=== PATIENT | male | born 1935 | race African-American/Black ===

== ENCOUNTER 2018-06-24 10:53 | Inpatient (IN) | payer OTHER ==
[2018-06-24] MEDS ORDERED: methylPREDNISolone NA SUCC 125 MG/2 ML VIAL ONE ×2 (11:19→15:04)
[2018-06-24 11:50] LABS: BASO % 0.7 % (0-2.0); HEMOGLOBIN 10.3 GM/dL (11.7-16.9); LYMPH % 1.5 % (8-40); MCH 26.1 pg (25.7-33.7); MCHC 32.1 g/dl (32.0-35.9); MEAN CELL VOLUME 81.4 fl (80-96); MEAN PLT VOLUME 7.2 fl (7.5-11.1); MONO % 6.5 % (3.8-10.2); NEUT % 91.3 % (42.8-82.8); PLATELET COUNT 460 K/MM3 (134-434); RBC 3.93 M/mm3 (4.00-5.60); RDW 18.5 % (11.9-15.9); VENOUS PC02 32.6 mmHg (38-52); VENOUS PH 7.48 (7.32-7.42); VENOUS PO2 56.8 mmHg (28-48); WHITE BLOOD COUNT 22.5 K/mm3 (4.0-10.0)
[2018-06-24] MEDS ORDERED: methylPREDNISolone NA SUCC 125 MG/2 ML VIAL IVPB ONE (11:51)
[2018-06-24] MEDS ORDERED: PIPERACILLIN/TAZOB 4.5 GM 4.5 GM in DEXTROSE 5%-WATER 100 ML IVPB ONE (11:53)
[2018-06-24] MEDS ORDERED: VANCOMYCIN 1,500 MG in DEXTROSE 5%-WATER - 250 ML IVPB ONE (11:53)
[2018-06-24 12:04] LABS: INR 2.08 (0.83-1.09); PROTHROMBIN TIME (PATIENT) 23.5 SEC (9.7-13.0)
[2018-06-24 12:07] LABS: ACTIVATED PTT 34.6 SECONDS (25.2-36.5)
--- NOTE | 2018-06-24 12:08 | PDOC ---
History of Present Illness - General Chief Complaint: Shortness of Breath Stated Complaint: DIFFICULTY BREATHING Time Seen by Provider: 06/24/18 11:09 History Source: Patient Exam Limitations: No Limitations - History of Present Illness Initial Comments: The patient is an 82M w/ a PMH of COPD, HF, a-fib (Eliquis), CKD, HLD, HTN, hypothyroidism who presents from his [facility] ([facility]) for worsening shortness of breath, fever (Tm 101.6), and hypoxia despite 3L NC. On arrival, the patient endorses worsening dyspnea and productive cough. He also reports chronic abdominal pain 2/2 hiatal hernia. Patient denies MCGRATH, acute vision change, chest pain, BLE swelling, or changes in sensation. 06/24/18 12:01 Past History - Past Medical History Allergies/Adverse Reactions: Allergies Allergy/AdvReac Type Severity Reaction Status Date / Time lisinopril Allergy Verified 06/24/18 11:19 Penicillins Allergy Verified 06/24/18 11:19 rosuvastatin [From Crestor] Allergy Verified 06/24/18 11:19 Home Medications: Ambulatory Orders Albuterol 2.5/Ipratropium 0.5 [Duoneb -] 1 neb IH QID 06/24/18 Albuterol Sulfate Inhaler - [Ventolin Hfa Inhaler -] 1 puff IH DAILY 06/24/18 Apixaban [Eliquis] 2.5 mg PO BID 06/24/18 Azithromycin [Zithromax -] 500 mg PO DAILY 06/24/18 Fluticasone Propionate [Flovent Diskus] 50 mcg IH BID 06/24/18 Fluticasone/Salmeterol [Advair 250-50 Diskus] 1 each IH BID 06/24/18 Furosemide 40 mg PO DAILY 06/24/18 Hydralazine HCl 100 mg PO TID 06/24/18 Levothyroxine [Synthroid -] 75 mcg PO DAILY 06/24/18 Multivit-Min/FA/Lycopen/Lutein [Centrum Silver Tablet] 1 each PO DAILY 06/24/18 Nifedipine ER [Procardia Xl -] 90 mg PO DAILY 06/24/18 Pantoprazole Sodium [Protonix] 40 mg PO DAILY 06/24/18 Potassium Chloride 10 meq PO DAILY 06/24/18 Simvastatin 10 mg PO DAILY 06/24/18 Cardiac Disorders: Yes (atrial fib) COPD: Yes GI Disorders: Yes (gerd) Hypercholesterolemia: Yes Kidney Stones: Yes (chronic kidney ds) Psychiatric Problems: Yes (anxiety, imsomnia) - Suicide/Smoking/Psychosocial Hx Smoking History: Never smoked Have you smoked in the past 12 months: No Information on smoking cessation initiated: No Hx Alcohol Use: No Drug/Substance Use Hx: No Substance Use Type: None Review of Systems - Review of Systems Able to Perform ROS?: Yes Comments:: GENERAL/CONSTITUTIONAL: No fever or chills. HEAD, EYES, EARS, NOSE AND THROAT: No change in vision. No ear pain or discharge. No sore throat CARDIOVASCULAR: No chest pain RESPIRATORY: +cough and wheeze GASTROINTESTINAL: No nausea, vomiting, diarrhea or constipation GENITOURINARY: No dysuria, frequency, or change in urination SKIN: No rash NEUROLOGIC: No headache, vertigo, loss of consciousness, or change in strength/ sensation ENDOCRINE: No increased thirst. No abnormal weight change HEMATOLOGIC/LYMPHATIC: +Eliquis 06/24/18 13:47 Is the patient limited Portuguese proficient: No *Physical Exam - Vital Signs Last Vital Signs Temp Pulse Resp BP Pulse Ox 100.6 F H 112 H 36 H 114/75 95 06/24/18 10:53 06/24/18 11:30 06/24/18 10:53 06/24/18 10:53 06/24/18 11:30 - Physical Exam Comments: GENERAL: Awake, alert, and fully oriented, in moderate distress HEAD: No signs of trauma, normocephalic, atraumatic EYES: PERRLA, EOMI, vision grossly intact ENT: Hearing grossly normal, nares patent. Moist mucosa NECK: Normal ROM, supple LUNGS: Moderate distress, tachypnea to 40s initially, pursed lip breathing; B/l mild-moderate diffuse crackles/rhonchi speaks full sentences HEART: Tachycardic and irregular rhythm, normal S1 and S2, no murmurs appreciated, peripheral pulses normal and equal bilaterally ABDOMEN: Soft, mild epigastric TTP without rebound or guarding EXTREMITIES : Normal inspection, Normal range of motion, no edema. No clubbing or cyanosis NEUROLOGICAL: Cranial nerves II through XII grossly intact. Normal speech, no focal sensorimotor deficits SKIN: Warm, Dry 06/24/18 12:06 ED Treatment Course - LABORATORY CBC & Chemistry Diagram: 06/24/18 11:30 06/24/18 11:30 - ADDITIONAL ORDERS Additional order review: Laboratory Results 06/24/18 11:30 VBG pH 7.48 H POC VBG pCO2 32.6 L POC VBG pO2 56.8 H Mixed VBG HCO3 23.8 06/24/18 11:30 RBC 3.93 L MCV 81.4 MCHC 32.1 RDW 18.5 H MPV 7.2 L Neutrophils % 91.3 H Lymphocytes % 1.5 L Monocytes % 6.5 Eosinophils % 0.0 Basophils % 0.7 - RADIOLOGY Radiology Studies Ordered: Category Date Time Status CHEST X-RAY PORTABLE* [RAD] Stat Radiology 06/24/18 11:27 Ordered - Medications Given in the ED: ED Medications Discontinued Medications Generic Name Dose Route Start Last Admin Trade Name Freq PRN Reason Stop Dose Admin Methylprednisolone Sodium Succinate 125 mg 06/24/18 11:51 06/24/18 11:28 Solu-Medrol - IVPB 06/24/18 11:52 125 mg ONCE ONE Administration Medical Decision Making - Critical Care Time Total Critical Care Time (minutes): 30 Critical Care Statement: The care of this patient involved high complexity decision making to prevent further life threatening deterioration of the patient 's condition and/or to evaluate & treat vital organ system(s) failure or risk of failure. - Medical Decision Making The patient is an 82M w/ a PMH of COPD, HF, a-fib (Eliquis), CKD, HLD, HTN, hypothyroidism who presents from his [facility] ([facility]) for worsening shortness of breath, fever (Tm 101.6), and hypoxia despite 3L NC. Patient febrile to 100.6, Tachycardic to 130s, Hypoxic to CMP, CBC, TS, Trop, Blood Cx, UA, UCx, Lactate, VBG Patient w/ PCN allergy, will give Vancomycin 1.5g IV once for loading dose and Levofloxacin 750mg IV once CXR, ECG Patient placed on BiPAP at 35% FiO2 Solumedrol 125mg IV once CXR significant for R pulm infiltrate vs effusion with pulm edema, cardiomegaly ECG with Tachycardia to 117, a-fib v flutter with possible 2:1 block; no axis deviation; no prior ECG for comparison; 06/24/18 12:01 Leukocytosis to 22 Slight Cr bump 1.8 (1.4 baseline) Initial Trop I neg LA 1.8 INR 2.08 BP improved to 110s/70s Tachycardia improving, 104 Tachypnea improving 20s Patient reports that he feels slightly 06/24/18 12:53 ICU consulted for admission initially for acute hypoxic respiratory failure Dispo: Admit to ICU with admission under Dr. Meza 06/24/18 13:39 Patient reports that he feels better now than on arrival. Less tachypnic, appears less distressed. 06/24/2018 13:46 UA w/o evidence of UTI 06/24/18 15:50 *DC/Admit/Observation/Transfer Diagnosis at time of Disposition: COPD exacerbation, Chronic diastolic CHF (congestive heart failure), Paroxysmal A-fib HTN (hypertension) Qualifiers: Hypertension type: essential hypertension Qualified Code(s): I10 - Essential ( primary) hypertension GERD (gastroesophageal reflux disease) Qualifiers: Esophagitis presence: esophagitis presence not specified Qualified Code(s): K21.9 - Gastro-esophageal reflux disease without esophagitis Hypothyroidism Qualifiers: Hypothyroidism type: unspecified Qualified Code(s): E03.9 - Hypothyroidism, unspecified CKD (chronic kidney disease) Qualifiers: Chronic kidney disease stage: unspecified stage Qualified Code(s): N18.9 - Chronic kidney disease, unspecified - Discharge Dispostion Condition at time of disposition: Guarded Decision to Admit order: Yes - Referrals - Patient Instructions - Post Discharge Activity
[2018-06-24] MEDS ORDERED: PIPERACILLIN/TAZOB 4.5 GM 4.5 GM/100 ML BAG IVPB ONE (12:13)
[2018-06-24 12:15] LABS: ALBUMIN 2.3 g/dl (3.4-5.0); ANION GAP 10 MMOL/L (8-16); BILIRUBIN,TOTAL 0.9 mg/dL (0.2-1.0); BLOOD UREA NITROGEN 21 mg/dL (7-18); CALCIUM 7.8 mg/dL (8.5-10.1); CHLORIDE 104 mmol/L (98-107); CO2 25 mmol/L (21-32); CREATININE 1.8 mg/dL (0.7-1.3); GLUCOSE,RANDOM 207 mg/dL (74-106); SGPT/ALT 17 U/L (12-78); SODIUM 139 mmol/L (136-145); TOT PROT 6.1 g/dl (6.4-8.2)
[2018-06-24 12:18] LABS: ALK PHOS 74 U/L (45-117)
[2018-06-24 12:19] LABS: POTASSIUM 4.2 mmol/L (3.5-5.1); SGOT/AST 29 U/L (15-37)
[2018-06-24] MEDS ORDERED: VANCOMYCIN 1,500 MG in DEXTROSE 5%-WATER - 500 ML IVPB ONE ×2 (12:21→12:30)
[2018-06-24] MEDS ORDERED: IMIPENEM/CILASTATIN SODIUM 500 MG in SODIUM CHLORIDE 100 ML IVPB ONE (12:27)
[2018-06-24 12:46] LABS: ANISOCYTOSIS 2+; MACROCYTOSIS 0; PLATELET ESTIMATE NORMAL
--- NOTE | 2018-06-24 13:11 | PDOC ---
Attending Attestation - Resident Resident Name: Lang Palacios - HPI HPI: 06/24/18 12:56 Pt presents to the ED complaining of shortness of breath that has been persistent for two days. Patient also complains of fever and productive cough. History of COPD with chronic home O2 use, and O2 saturations that are chronically in the low 90s on O2. Patient extremely tachypneic, speaking in 2- 3 word sentences and hypoxic despite 6 L O2 by nasal cannula. Febrile and tachycardic with a flutter on EKg. - Physicial Exam PE: 06/24/18 13:11 Agree with resident exam. PAtient is alert, in moderate respiratory distress. Heart: irregular, tachycardic, no murmur. Lungs: + diffuse wheezing and decreased air entry. + tachypnea. + pursed lip breathing. Abdomen: soft, non tender, non distended. Ext: no edema. - Critical Care Time Total Critical Care Time: 45 Critical Care Statement: The care of this patient involved high complexity decision making to prevent further life threatening deterioration of the patient 's condition and/or to evaluate & treat vital organ system(s) failure or risk of failure. - Medical Decision Making 06/24/18 13:13 Pt presents to the ED complaining of shortness of breath and fever. Hypoxic and tachypneic on arrival to the ED. Started on bipap for respiratory distress shortly after arrival, with improvement in his respiratory rate and heart rate, as well as subjectively feeling better. Differential includes ACS, CHF, COPD exacerbation, PNA. Broad spectrum antibiotics given--levaquin given instead of zosyn or immipenem since patient has a PCN allergy. CXR shows evidence of pulmonary congestion, but will hold of on nitrates or diuretics for now since blood pressure is borderline. Will admit to ICU. 06/24/18 13:16
[2018-06-24 13:58] LABS: URINE APPEARANCE SLCLOUDY; URINE BILIRUBIN NEGATIVE (<2.0 mg/dL); URINE COLOR AMBER; URINE GLUCOSE (UA) NEGATIVE (NEGATIVE); URINE KETONE NEGATIVE (NEGATIVE); URINE LEUK ESTERASE NEGATIVE (NEGATIVE); URINE NITRITE NEGATIVE (NEGATIVE); URINE PROTEIN NEGATIVE (NEGATIVE); URINE UROBILINOGEN NEGATIVE mg/dL (0.2-1.0)
--- NOTE | 2018-06-24 14:59 | HP ---
Admitting History and Physical - Primary Care Physician PCP: Jerson Meza - Admission Chief Complaint: sob History of Present Illness: Pt seen/ examined in er . Chart reviewed Discussed with Er Resident/ Attending Er records reviewed In summary The patient is an 82M w/ a PMH of COPD, HF, a-fib (Eliquis), CKD, HLD, HTN, hypothyroidism who presents from his care home ([facility]) for worsening shortness of breath, fever (Tm 101.6), and hypoxia despite 3L NC. Patient febrile to 100.6, Tachycardic to 130s, Hypoxic Patient w/ PCN allergy, l given Vancomycin 1.5g IV once for loading dose and Levofloxacin 750mg IV once Patient placed on BiPAP at 35% FiO2 Solumedrol 125mg IV once also given due to diffuse wheezing. CXR significant for R pulm infiltrate vs effusion with pulm edema, cardiomegaly. ECG with Tachycardia to 117, a-fib v flutter with possible 2:1 block; no axis deviation; no prior ECG for comparison; Pt improved More Comfortable. History Source: Patient, Medical Record Limitations to Obtaining History: Clinical Condition - Past Medical History Cardiovascular: Yes: AFIB, HTN Pulmonary: Yes: COPD Renal/: Yes: Renal Inusuff Endocrine: Yes: Hypothyroidism - Smoking History Smoking history: Never smoked Have you smoked in the past 12 months: No - Alcohol/Substance Use Hx Alcohol Use: No Home Medications - Allergies Allergies/Adverse Reactions: Allergies Allergy/AdvReac Type Severity Reaction Status Date / Time lisinopril Allergy Verified 06/24/18 11:19 Penicillins Allergy Verified 06/24/18 11:19 rosuvastatin [From Crestor] Allergy Verified 06/24/18 11:19 - Home Medications Home Medications: Ambulatory Orders Albuterol 2.5/Ipratropium 0.5 [Duoneb -] 1 neb IH QID 06/24/18 Albuterol Sulfate Inhaler - [Ventolin Hfa Inhaler -] 1 puff IH DAILY 06/24/18 Apixaban [Eliquis] 2.5 mg PO BID 06/24/18 Azithromycin [Zithromax -] 500 mg PO DAILY 06/24/18 Fluticasone Propionate [Flovent Diskus] 50 mcg IH BID 06/24/18 Fluticasone/Salmeterol [Advair 250-50 Diskus] 1 each IH BID 06/24/18 Furosemide 40 mg PO DAILY 06/24/18 Hydralazine HCl 100 mg PO TID 06/24/18 Levothyroxine [Synthroid -] 75 mcg PO DAILY 06/24/18 Multivit-Min/FA/Lycopen/Lutein [Centrum Silver Tablet] 1 each PO DAILY 06/24/18 Nifedipine ER [Procardia Xl -] 90 mg PO DAILY 06/24/18 Pantoprazole Sodium [Protonix] 40 mg PO DAILY 06/24/18 Potassium Chloride 10 meq PO DAILY 06/24/18 Simvastatin 10 mg PO DAILY 06/24/18 Review of Systems Unable to obtain ROS, reason: see [email or web address] Physical Examination Vital Signs: Vital Signs Temperature 100.6 F H 06/24/18 10:53 Pulse Rate 103 H 06/24/18 14:12 Respiratory Rate 36 H 06/24/18 14:12 Blood Pressure 119/73 06/24/18 14:12 O2 Sat by Pulse Oximetry (%) 96 06/24/18 14:14 Constitutional: Yes: Mild Distress, Other (awake/on bipap in er) Eyes: Yes: Conjunctiva Clear Neck: Yes: Supple, Other (no jvd) Cardiovascular: Yes: Pulse Irregular Respiratory: Yes: Wheezes (Bilateral diffuse wheezes) Gastrointestinal: Yes: Soft Edema: No Neurological: Yes: Alert Psychiatric: Yes: Alert Labs: CBC, BMP 06/24/18 11:30 06/24/18 11:30 Imaging - Results Chest X-ray: Report Reviewed EKG: Report Reviewed Problem List - Problems (1) Respiratory failure with hypoxia Code(s): J96.91 - RESPIRATORY FAILURE, UNSPECIFIED WITH HYPOXIA (2) Chronic diastolic CHF (congestive heart failure) Code(s): I50.32 - CHRONIC DIASTOLIC (CONGESTIVE) HEART FAILURE (3) HTN (hypertension) Code(s): I10 - ESSENTIAL (PRIMARY) HYPERTENSION Qualifiers: Hypertension type: essential hypertension Qualified Code(s): I10 - Essential (primary) hypertension (4) Hypothyroidism Code(s): E03.9 - HYPOTHYROIDISM, UNSPECIFIED Qualifiers: Hypothyroidism type: unspecified Qualified Code(s): E03.9 - Hypothyroidism , unspecified (5) Paroxysmal A-fib Code(s): I48.0 - PAROXYSMAL ATRIAL FIBRILLATION Assessment/Plan Admit to icu Bipap Abx Steroids nebulizer treatment Hold Bp Meds Continue other meds Critical team/ pulmonary to evaluate Consult i/d also. cc time 35 min in examining/ documenting and coorating care will follow.
[2018-06-24] MEDS: methylPREDNISolone NA SUCC 125 MG/2 ML VIAL IVPUSH SCH ×2 (15:12→21:10)
[2018-06-24] MEDS: ALBUTEROL SO4 2.5/IPRATROPIUM 0.5 INH SOL 3 ML VIAL.NEB. NEB SCH ×2 (17:30→20:34)
--- NOTE | 2018-06-24 20:18 | CONSULT ---
Consultation: REQUESTING PROVIDER: CONSULT REQUEST: ICU HISTORY OF PRESENT ILLNESS: The patient is a 82 year old male with a PMH of COPD, on home oxygen, 2 L, A.Fib , HTN, HLD, hiatal hernia, presented from [facility] for worsening SOB, wheezing , cough for the past several days and fatigue. The patient is bringing clear/ yellow phlegm. He denies fever, chills. When I saw the patient is ICU, he was AAO x 3, no acute distress, Oxygen Sat 95 on 3 L, BP 121/75, HR 91, RR 30, A.Flutter on monitor. He states that his breathing improved a lot since he came to the hospital. He denies chest pain, palpitations, abdominal pain, N/V. PSH: prostate Ca surg SH: quit smoking in 1954, no alcohol, no drugs. 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 FH: mother; CHF, smoker, father: smoker, COPD REVIEW OF SYSTEMS: CONSTITUTIONAL: Absent: fever, chills, diaphoresis, generalized weakness HEENT: Absent: rhinorrhea, nasal congestion, throat pain CARDIOVASCULAR: Absent: chest pain, syncope, palpitations, irregular heart rate RESPIRATORY: cough, shortness of breath Absent: dyspnea with exertion, orthopnea, wheezing GASTROINTESTINAL: Absent: abdominal pain, abdominal distension, nausea, vomiting, diarrhea, constipation GENITOURINARY: Absent: dysuria, frequency, urgency, hesitancy, MUSCULOSKELETAL: Absent: myalgia, arthralgia, joint swelling, back pain, neck pain SKIN: Absent: rash, itching, pallor ENDOCRINE: Absent: unexplained weight gain, unexplained weight loss NEUROLOGIC: Absent: headache, focal weakness or paresthesias, PSYCHIATRIC: Absent: anxiety, depression PHYSICAL EXAMINATION Vital Signs - 24 hr 06/24/18 06/24/18 06/24/18 10:53 11:30 13:00 Temperature 100.6 F H Pulse Rate 118 H 112 H Pulse Rate [ Right Radial] Respiratory 36 H Rate Blood Pressure 114/75 Blood Pressure [Right Arm] O2 Sat by Pulse 100 95 95 Oximetry (%) 06/24/18 06/24/18 06/24/18 14:12 14:14 15:28 Temperature 99.3 F Pulse Rate Pulse Rate [ 103 H Right Radial] Respiratory 36 H Rate Blood Pressure Blood Pressure 119/73 [Right Arm] O2 Sat by Pulse 96 96 Oximetry (%) 06/24/18 06/24/18 06/24/18 17:29 17:35 18:05 Temperature 97.8 F Pulse Rate 95 H 104 H Pulse Rate [ Right Radial] Respiratory 29 H 27 H Rate Blood Pressure 120/71 97/71 Blood Pressure [Right Arm] O2 Sat by Pulse 95 Oximetry (%) 06/24/18 06/24/18 18:49 20:00 Temperature 98.1 F Pulse Rate 91 H Pulse Rate [ Right Radial] Respiratory 30 H Rate Blood Pressure 121/75 Blood Pressure [Right Arm] O2 Sat by Pulse 94 L Oximetry (%) GENERAL: Awake, alert, and fully oriented, in no acute distress. HEAD: Normal with no signs of trauma. EYES: Pupils equal, round and reactive to light, extraocular movements intact, sclera anicteric, conjunctiva clear. EARS, NOSE, THROAT: Ears normal, nares patent, oropharynx clear without exudates , on NC. NECK: Supple without lymphadenopathy, JVD, or masses. LUNGS: Rhales and rhonchi r>l, occasional wheezing, no wheezes, and no crackles. No accessory muscle use. HEART: Regular rate and rhythm, normal S1 and S2 without murmur, rub or gallop. ABDOMEN: Soft, nontender, not distended, normoactive bowel sounds, no guarding, no rebound, no masses. MUSCULOSKELETAL: Normal range of motion at all joints. No bony deformities or tenderness. UPPER EXTREMITIES:No peripheral edema. LOWER EXTREMITIES: trace peripheral edema. NEUROLOGICAL: No facial asymmetry, no slurred speech, non focal, gait not observed. PSYCHIATRIC: Cooperative. Good eye contact. Appropriate mood and affect. SKIN: Warm, dry, normal turgor, no rashes. Laboratory Results - last 24 hr 06/24/18 06/24/18 06/24/18 11:30 11:30 11:30 WBC 22.5 H RBC 3.93 L Hgb 10.3 L Hct 32.0 L MCV 81.4 MCH 26.1 MCHC 32.1 RDW 18.5 H Plt Count 460 H MPV 7.2 L Absolute Neuts (auto) 20.5 H Neutrophils % 91.3 H Neutrophils % (Manual) 92.9 H Band Neutrophils % 0.0 Lymphocytes % 1.5 L Lymphocytes % (Manual) 1.0 L Monocytes % 6.5 Monocytes % (Manual) 6 Eosinophils % 0.0 Eosinophils % (Manual) 0.0 Basophils % 0.7 Basophils % (Manual) 0.0 Myelocytes % (Man) 0 Promyelocytes % (Man) 0 Blast Cells % (Manual) 0 Nucleated RBC % 0 Metamyelocytes 0 Hypochromia 0 Platelet Estimate Normal Polychromasia 0 Poikilocytosis 0 Anisocytosis 2+ Microcytosis 2+ Macrocytosis 0 PT with INR 23.50 H INR 2.08 H PTT (Actin FS) 34.6 VBG pH 7.48 H POC VBG pCO2 32.6 L POC VBG pO2 56.8 H Mixed VBG HCO3 23.8 Sodium Potassium Chloride Carbon Dioxide Anion Gap BUN Creatinine Creat Clearance w eGFR Random Glucose Lactic Acid Calcium Total Bilirubin AST ALT Alkaline Phosphatase Troponin I Total Protein Albumin Urine Color Urine Appearance Urine pH Ur Specific [place] Urine Protein Urine Glucose (UA) Urine Ketones Urine Blood Urine Nitrite Urine Bilirubin Urine Urobilinogen Ur Leukocyte Esterase Blood Type Antibody Screen 06/24/18 06/24/18 06/24/18 11:30 11:30 11:30 WBC RBC Hgb Hct MCV MCH MCHC RDW Plt Count MPV Absolute Neuts (auto) Neutrophils % Neutrophils % (Manual) Band Neutrophils % Lymphocytes % Lymphocytes % (Manual) Monocytes % Monocytes % (Manual) Eosinophils % Eosinophils % (Manual) Basophils % Basophils % (Manual) Myelocytes % (Man) Promyelocytes % (Man) Blast Cells % (Manual) Nucleated RBC % Metamyelocytes Hypochromia Platelet Estimate Polychromasia Poikilocytosis Anisocytosis Microcytosis Macrocytosis PT with INR INR PTT (Actin FS) VBG pH POC VBG pCO2 POC VBG pO2 Mixed VBG HCO3 Sodium 139 Potassium 4.2 Chloride 104 Carbon Dioxide 25 Anion Gap 10 BUN 21 H Creatinine 1.8 H Creat Clearance w eGFR 36.13 Random Glucose 207 H Lactic Acid 1.8 Calcium 7.8 L Total Bilirubin 0.9 AST 29 ALT 17 Alkaline Phosphatase 74 Troponin I 0.02 Total Protein 6.1 L Albumin 2.3 L Urine Color Urine Appearance Urine pH Ur Specific [place] Urine Protein Urine Glucose (UA) Urine Ketones Urine Blood Urine Nitrite Urine Bilirubin Urine Urobilinogen Ur Leukocyte Esterase Blood Type A POSITIVE Antibody Screen Negative 06/24/18 06/24/18 06/24/18 11:30 13:51 13:51 WBC RBC Hgb Hct MCV MCH MCHC RDW Plt Count MPV Absolute Neuts (auto) Neutrophils % Neutrophils % (Manual) Band Neutrophils % Lymphocytes % Lymphocytes % (Manual) Monocytes % Monocytes % (Manual) Eosinophils % Eosinophils % (Manual) Basophils % Basophils % (Manual) Myelocytes % (Man) Promyelocytes % (Man) Blast Cells % (Manual) Nucleated RBC % Metamyelocytes Hypochromia Platelet Estimate Polychromasia Poikilocytosis Anisocytosis Microcytosis Macrocytosis PT with INR INR PTT (Actin FS) VBG pH POC VBG pCO2 POC VBG pO2 Mixed VBG HCO3 Sodium Potassium Chloride Carbon Dioxide Anion Gap BUN Creatinine Creat Clearance w eGFR Random Glucose Lactic Acid Calcium Total Bilirubin AST ALT Alkaline Phosphatase Troponin I Cancelled Total Protein Albumin Urine Color [place] Urine Appearance Slcloudy Urine pH 5.0 Ur Specific [place] 1.014 Urine Protein Negative Urine Glucose (UA) Negative Urine Ketones Negative Urine Blood Negative Urine Nitrite Negative Urine Bilirubin Negative Urine Urobilinogen Negative Ur Leukocyte Esterase Negative Blood Type A POSITIVE Antibody Screen Active Medications Generic Name Dose Route Start Last Admin Trade Name Freq PRN Reason Stop Dose Admin Acetaminophen 650 mg 06/24/18 14:46 Tylenol - PO Q6H PRN PAIN LEVEL 1-5 Albuterol/Ipratropium 1 amp 06/24/18 16:00 06/24/18 17:30 Duoneb - NEB Not Given RQID [facility] Apixaban 2.5 mg 06/24/18 22:00 Eliquis - PO BID [facility] Atorvastatin Calcium 10 mg 06/25/18 22:00 Lipitor - PO HS [facility] Budesonide/Formoterol Fumarate 2 puff 06/24/18 22:00 Symbicort 80/4.5mcg - IH BID [facility] Chlorhexidine Gluconate 1 applic 06/24/18 22:00 Hibiclens For Decolonization - TP HS [facility] Levothyroxine Sodium 75 mcg 06/25/18 07:00 Synthroid - PO DAILY@0700 [facility] Methylprednisolone Sodium Succinate 60 mg 06/24/18 15:00 06/24/18 15:12 Solu-Medrol - IVPUSH 60 mg Q6H-IV [facility]AG[facility]EP Administration Multivitamins/Minerals/Vitamin C 1 tab 06/25/18 10:00 Tab-A-Vit - PO DAILY [facility] Mupirocin 1 applic 06/24/18 22:00 Bactroban Ointment (For Decolonization) - NS 06/29/18 21:59 BID [facility]AG[facility] Pantoprazole Sodium 40 mg 06/25/18 10:00 Protonix Iv IVPUSH DAILY [facility] ASSESSMENT/PLAN: The patient is a 82 year old male with a PMH of COPD, on home oxygen, 2 L, A.Fib , HTN, HLD, hiatal hernia, presented from [facility] for worsening SOB, wheezing , cough for the past several days and fatigue. He is admitted for COPD exacerbation, sepsis due to PNA. COPD exacerbation CHF sepsis due to pneumonia ANNALISA on CKD A.Fib HTN hyperlipidemia hiatal hernia hypothyroidism Plan: continue Solu-medrol 60 mg IV Q6h continue Levaquin IV continue Duoneb, Symbicort CXR significant for R pulmonary infiltrate vs effusion with pulm edema and cardiomegaly ECG: tachycardia to 117, a-fib v flutter, variable AC block sputum culture, blood cultures, Legionella ag no fluids, will resume home Lasix monitor Cr, avoid nephrotoxic substances, Cr not known baseline cont. Eliquis Oxygen Supplementation cont Synthroid DVT PPX on AC GI PPX Protonix Dispo: We will continue to follow the patient. Thank you for this consultative opportunity. Problem List - Problems (1) CKD (chronic kidney disease) Code(s): N18.9 - CHRONIC KIDNEY DISEASE, UNSPECIFIED Qualifiers: Chronic kidney disease stage: unspecified stage Qualified Code(s): N18.9 - Chronic kidney disease, unspecified (2) COPD exacerbation Code(s): J44.1 - CHRONIC OBSTRUCTIVE PULMONARY DISEASE W (ACUTE) EXACERBATION (3) Chronic diastolic CHF (congestive heart failure) Code(s): I50.32 - CHRONIC DIASTOLIC (CONGESTIVE) HEART FAILURE (4) GERD (gastroesophageal reflux disease) Code(s): K21.9 - GASTRO-ESOPHAGEAL REFLUX DISEASE WITHOUT ESOPHAGITIS Qualifiers: Esophagitis presence: esophagitis presence not specified Qualified Code(s) : K21.9 - Gastro-esophageal reflux disease without esophagitis (5) HTN (hypertension) Code(s): I10 - ESSENTIAL (PRIMARY) HYPERTENSION Qualifiers: Hypertension type: essential hypertension Qualified Code(s): I10 - Essential (primary) hypertension (6) Hypothyroidism Code(s): E03.9 - HYPOTHYROIDISM, UNSPECIFIED Qualifiers: Hypothyroidism type: unspecified Qualified Code(s): E03.9 - Hypothyroidism , unspecified (7) Paroxysmal A-fib Code(s): I48.0 - PAROXYSMAL ATRIAL FIBRILLATION (8) Pneumonia Code(s): J18.9 - PNEUMONIA, UNSPECIFIED ORGANISM (9) Respiratory failure with hypoxia Code(s): J96.91 - RESPIRATORY FAILURE, UNSPECIFIED WITH HYPOXIA Visit type - Emergency Visit Emergency Visit: Yes ED Registration Date: 06/24/18 Care time: The patient presented to the Emergency Department on the above date and was hospitalized for further evaluation of their emergent condition. - New Patient This patient is new to me today: Yes Date on this admission: 06/24/18 - Critical Care Critical Care patient: Yes Total Critical Care Time (in minutes): 40 Critical Care Statement: The care of this patient involved high complexity decision making to prevent further life threatening deterioration of the patient 's condition and/or to evaluate & treat vital organ system(s) failure or risk of failure.
[2018-06-24] MEDS: APIXABAN 2.5 MG TABLET PO SCH (21:10)
[2018-06-24] MEDS: CHLORHEXIDINE GLUCONATE 4% CLEANSER FOR DECOLONIZATION TP SCH (21:10)
[2018-06-24] MEDS: MUPIROCIN 2% TOPICAL OINTMENT FOR DECOLONIZATION NS SCH (21:10)
--- NOTE | 2018-06-24 21:54 | EKG ---
Test Reason : Blood Pressure : / mmHG Vent. Rate : 117 BPM Atrial Rate : 278 BPM P-R Int : 000 ms QRS Dur : 098 ms QT Int : 370 ms P-R-T Axes : 067 029 024 degrees QTc Int : 516 ms ATRIAL FLUTTER WITH VARIABLE A-V BLOCK WITH PREMATURE VENTRICULAR OR ABERRANTLY CONDUCTED COMPLEXES RSR' OR QR PATTERN IN V1 SUGGESTS RIGHT VENTRICULAR CONDUCTION DELAY CANNOT RULE OUT INFERIOR INFARCT , AGE UNDETERMINED ABNORMAL ECG NO PREVIOUS ECGS AVAILABLE Confirmed by JADE GOULD MD ([id number]) on 06/24/2018 9:54:16 PM Referred By: Confirmed By:JADE GOULD MD
[2018-06-24] MEDS ORDERED: PATIENT'S OWN MEDICATION (NON-FORMULARY) (Fluticasone Propionate [Flovent Diskus] 50 MCG) IH SCH (22:00)
[2018-06-24] MEDS: BUDESONIDE/FORMETEROL FUMARATE 80/4.5 mcg INHALER IH SCH (22:03)
[2018-06-25] MEDS ORDERED: PT OWN MED DRAWER 7, Y5N ONE ×8 (01:45→21:31)
[2018-06-25] MEDS: methylPREDNISolone NA SUCC 125 MG/2 ML VIAL IVPUSH SCH ×4 (02:05→21:10)
[2018-06-25] MEDS: LEVOTHYROXINE NA 75 MCG TABLET (FP) PO SCH (06:03)
[2018-06-25 06:09] LABS: BASO % 0.1 % (0-2.0); HEMATOCRIT 30.7 % (35.4-49); HEMOGLOBIN 10.2 GM/dL (11.7-16.9); LYMPH % 0.8 % (8-40); MCH 26.8 pg (25.7-33.7); MCHC 33.4 g/dl (32.0-35.9); MEAN CELL VOLUME 80.3 fl (80-96); MONO % 3.3 % (3.8-10.2); NEUT % 95.8 % (42.8-82.8); PLATELET COUNT 474 K/MM3 (134-434); RBC 3.82 M/mm3 (4.00-5.60); RDW 18.2 % (11.9-15.9); WHITE BLOOD COUNT 20.5 K/mm3 (4.0-10.0)
[2018-06-25 06:28] LABS: ALBUMIN 2.2 g/dl (3.4-5.0); ANION GAP 11 MMOL/L (8-16); BILIRUBIN,TOTAL 0.4 mg/dL (0.2-1.0); BLOOD UREA NITROGEN 27 mg/dL (7-18); CHLORIDE 105 mmol/L (98-107); CO2 25 mmol/L (21-32); CREATININE 1.6 mg/dL (0.7-1.3); GLUCOSE,RANDOM 143 mg/dL (74-106); POTASSIUM 3.8 mmol/L (3.5-5.1); SGOT/AST 11 U/L (15-37); SGPT/ALT 17 U/L (12-78); SODIUM 141 mmol/L (136-145); TOT PROT 6.1 g/dl (6.4-8.2)
[2018-06-25 06:29] LABS: ALK PHOS 73 U/L (45-117)
[2018-06-25] MEDS: ALBUTEROL SO4 2.5/IPRATROPIUM 0.5 INH SOL 3 ML VIAL.NEB. NEB SCH ×4 (07:30→20:38)
--- NOTE | 2018-06-25 08:52 | PN ---
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 hospitalized in [place] in November with pneumonia and influenza, recently hospitalized in mid May? with pneumonia in [facility] as well refused bipap resp failure with hypoxia RLL pneumonia copd exacerbation Penicillin allergy ckd afib prolonged Qtc continue vancomycin add cefepime f/u cultures f/u urinary antigens Problem List - Problems (1) Respiratory failure with hypoxia Code(s): J96.91 - RESPIRATORY FAILURE, UNSPECIFIED WITH HYPOXIA (2) Pneumonia Code(s): J18.9 - PNEUMONIA, UNSPECIFIED ORGANISM (3) COPD exacerbation Code(s): J44.1 - CHRONIC OBSTRUCTIVE PULMONARY DISEASE W (ACUTE) EXACERBATION (4) CKD (chronic kidney disease) Code(s): N18.9 - CHRONIC KIDNEY DISEASE, UNSPECIFIED Qualifiers: Chronic kidney disease stage: unspecified stage Qualified Code(s): N18.9 - Chronic kidney disease, unspecified (5) Penicillin allergy Code(s): Z88.0 - ALLERGY STATUS TO PENICILLIN
[2018-06-25] MEDS: PANTOPRAZOLE SODIUM 40 MG VIAL IVPUSH SCH (09:41)
[2018-06-25] MEDS: APIXABAN 2.5 MG TABLET PO SCH ×2 (09:41→21:10)
[2018-06-25] MEDS: MULTIVITAMINS (DAILY MVI) TABLET (FP) PO SCH (09:41)
[2018-06-25] MEDS: BUDESONIDE/FORMETEROL FUMARATE 80/4.5 mcg INHALER IH SCH ×2 (09:41→21:26)
[2018-06-25 10:47] LABS: ANISOCYTOSIS 1+; MACROCYTOSIS 1+; PLATELET ESTIMATE NORMAL
--- NOTE | 2018-06-25 11:43 | PN ---
Progress Note (short form) - Note Progress Note: pt seen/ examined in icu Alert/ awake Tachypnic/ tachycardic Hypoxic Refuses BiPap afebrile I/d/ critical consults noted/ appreciated Vital Signs Temp 98.1 F 06/25/18 10:00 Pulse 103 H 06/25/18 10:00 Resp 40 H 06/25/18 10:00 BP 125/70 06/25/18 10:00 Pulse Ox 94 L 06/25/18 08:00 Intake & Output 06/24/18 06/24/18 06/25/18 11:59 23:59 11:59 Intake Total 990 120 Output Total 300 Balance 690 120 Weight 182 lb 8 oz 173 lb 9 oz 179 lb 6.4 oz Intake: IVPB 750 Oral 240 120 Output: Urine 300 Void 300 Other: Voiding Method Urinal Bedpan # Unmeasured Voids Void 1 1 Bowel Movement No Height 6 ft 6 ft Body Mass Index (BMI) 24.7 23.5 Weight Measurement Method Built in Bedscale Built in Bedscale Active Medications Acetaminophen (Tylenol -) 650 mg PO Q6H PRN PRN Reason: PAIN LEVEL 1-5 Albuterol/Ipratropium (Duoneb -) 1 amp NEB RQID [facility] Last Admin: 06/25/18 11:13 Dose: 1 amp Apixaban (Eliquis -) 2.5 mg PO BID [facility] Last Admin: 06/25/18 09:41 Dose: 2.5 mg Atorvastatin Calcium (Lipitor -) 10 mg PO [facility] Budesonide/Formoterol Fumarate (Symbicort 80/4.5mcg -) 2 puff IH BID [facility] Last Admin: 06/25/18 09:41 Dose: 2 puff Chlorhexidine Gluconate (Hibiclens For Decolonization -) 1 applic TP [facility] Last Admin: 06/24/18 21:10 Dose: 1 applic Vancomycin HCl 1,250 mg/ (Dextrose) 250 mls @ 250 mls/2 hr IVPB Q24H [facility]; Protocol Cefepime HCl 2 gm/ Dextrose 100 mls @ 100 mls/hr IVPB BID [facility]; Protocol Levothyroxine Sodium (Synthroid -) 75 mcg PO DAILY@0700 [facility] Last Admin: 06/25/18 06:03 Dose: 75 mcg Methylprednisolone Sodium Succinate (Solu-Medrol -) 60 mg IVPUSH Q6H-IV [facility] Last Admin: 06/25/18 09:40 Dose: 60 mg Multivitamins/Minerals/Vitamin C (Tab-A-Vit -) 1 tab PO DAILY [facility] Last Admin: 06/25/18 09:41 Dose: 1 tab Mupirocin (Bactroban Ointment (For Decolonization) -) 1 applic NS BID [facility] Stop: 06/29/18 21:59 Last Admin: 06/24/18 21:10 Dose: 1 applic Pantoprazole Sodium (Protonix Iv) 40 mg IVPUSH DAILY [facility] Last Admin: 06/25/18 09:41 Dose: 40 mg CBC,CMP WBC 20.5 K/mm3 (4.0-10.0) H 06/25/18 05:30 RBC 3.82 M/mm3 (4.00-5.60) L 06/25/18 05:30 Hgb 10.2 GM/dL (11.7-16.9) L 06/25/18 05:30 Hct 30.7 % (35.4-49) L 06/25/18 05:30 MCV 80.3 fl (80-96) 06/25/18 05:30 MCH 26.8 pg (25.7-33.7) 06/25/18 05:30 MCHC 33.4 g/dl (32.0-35.9) 06/25/18 05:30 RDW 18.2 % (11.9-15.9) H 06/25/18 05:30 Plt Count 474 K/MM3 (134-434) H 06/25/18 05:30 MPV 7.0 fl (7.5-11.1) L 06/25/18 05:30 Absolute Neuts (auto) 19.7 K/mm3 (1.5-8.0) H 06/25/18 05:30 Neutrophils % 95.8 % (42.8-82.8) H 06/25/18 05:30 Neutrophils % (Manual) 93.9 % (42.8-82.8) H 06/25/18 05:30 Band Neutrophils % 1.0 % 06/25/18 05:30 Lymphocytes % 0.8 % (8-40) L 06/25/18 05:30 Lymphocytes % (Manual) 0.0 % (8-40) L 06/25/18 05:30 Monocytes % 3.3 % (3.8-10.2) L 06/25/18 05:30 Monocytes % (Manual) 5 % (3.8-10.2) 06/25/18 05:30 Eosinophils % 0.0 % (0-4.5) 06/25/18 05:30 Eosinophils % (Manual) 0.0 % (0-4.5) 06/25/18 05:30 Basophils % 0.1 % (0-2.0) 06/25/18 05:30 Basophils % (Manual) 0.0 % (0-2.0) 06/25/18 05:30 Myelocytes % (Man) 0 % (0-2) 06/25/18 05:30 Promyelocytes % (Man) 0 % (0-2) 06/25/18 05:30 Blast Cells % (Manual) 0 % (0-0) 06/25/18 05:30 Nucleated RBC % 0 % (0-0) 06/25/18 05:30 Metamyelocytes 0 % (0-2) 06/25/18 05:30 Hypochromia 0 06/24/18 11:30 Platelet Estimate Normal 06/25/18 05:30 Polychromasia 1+ 06/25/18 05:30 Poikilocytosis 0 06/25/18 05:30 Anisocytosis 1+ 06/25/18 05:30 Microcytosis 1+ 06/25/18 05:30 Macrocytosis 1+ 06/25/18 05:30 Sodium 141 mmol/L (136-145) 06/25/18 05:30 Potassium 3.8 mmol/L (3.5-5.1) 06/25/18 05:30 Chloride 105 mmol/L (98-107) 06/25/18 05:30 Carbon Dioxide 25 mmol/L (21-32) 06/25/18 05:30 Anion Gap 11 MMOL/L (8-16) 06/25/18 05:30 BUN 27 mg/dL (7-18) H 06/25/18 05:30 Creatinine 1.6 mg/dL (0.7-1.3) H 06/25/18 05:30 Creat Clearance w eGFR 41.39 (>60) 06/25/18 05:30 Random Glucose 143 mg/dL (74-106) H D 06/25/18 05:30 Lactic Acid 1.8 mmol/L (0.0-2.0) 06/24/18 11:30 Calcium 8.0 mg/dL (8.5-10.1) L 06/25/18 05:30 Total Bilirubin 0.4 mg/dL (0.2-1.0) 06/25/18 05:30 AST 11 U/L (15-37) L D 06/25/18 05:30 ALT 17 U/L (12-78) 06/25/18 05:30 Alkaline Phosphatase 73 U/L (45-117) 06/25/18 05:30 Troponin I 0.02 ng/ml (0.00-0.05) 06/24/18 11:30 Total Protein 6.1 g/dl (6.4-8.2) L 06/25/18 05:30 Albumin 2.2 g/dl (3.4-5.0) L 06/25/18 05:30 f/u cxr -- pending Physical Examination Constitutional: Yes: Mild Distress, Eyes: Yes: Conjunctiva Clear Neck: Yes: Supple, Other (no jvd) Cardiovascular: Yes: Pulse Irregular Respiratory: Yes: Wheezes (Bilateral diffuse wheezes)-- Improved Gastrointestinal: Yes: Soft/ non tender Edema: No Neurological: Yes: Alert Psychiatric: Yes: Alert Assessment/Plan Still sob/tachy Bipap-- refuses Abx Steroids nebulizer treatment Hold Bp Meds Continue other meds will order echo continue other meds will follow cc time 30 min Discussed with nursing staff also Problem List - Problems (1) Respiratory failure with hypoxia Code(s): J96.91 - RESPIRATORY FAILURE, UNSPECIFIED WITH HYPOXIA (2) Chronic diastolic CHF (congestive heart failure) Code(s): I50.32 - CHRONIC DIASTOLIC (CONGESTIVE) HEART FAILURE (3) HTN (hypertension) Code(s): I10 - ESSENTIAL (PRIMARY) HYPERTENSION Qualifiers: Hypertension type: essential hypertension Qualified Code(s): I10 - Essential (primary) hypertension (4) Hypothyroidism Code(s): E03.9 - HYPOTHYROIDISM, UNSPECIFIED Qualifiers: Hypothyroidism type: unspecified Qualified Code(s): E03.9 - Hypothyroidism , unspecified (5) Paroxysmal A-fib Code(s): I48.0 - PAROXYSMAL ATRIAL FIBRILLATION
[2018-06-25] MEDS ORDERED: metoPROLOL SUCCINATE 25 MG TAB.SR.24H (FP) PO PRN (11:51)
--- NOTE | 2018-06-25 12:03 | PN ---
Teaching Attending Note Name of Resident: Kathleen Martinez ATTENDING PHYSICIAN STATEMENT I saw and evaluated the patient. I reviewed the resident's note and discussed the case with the resident. I agree with the resident's findings and plan as documented. SUBJECTIVE: Pt seen and examined in the ICU. Remains short of breath and tachypneic. Nonproductive cough. Saturating upper 80s on 4L nasal cannula. OBJECTIVE: Vital Signs Period Temp Pulse Resp BP Sys/[place] Pulse Ox Last 24 Hr 97.8 F-99.3 F 5-110 24-40 97-125/66-78 94-96 Intake & Output 06/22/18 06/23/18 06/24/18 06/25/18 23:59 23:59 23:59 23:59 Intake Total 990 120 Output Total 300 Balance 690 120 Weight 78.727 kg 81.374 kg Gen: tachypneic, diaphoretic Heart: tachycardic, irregular Lung: bibasilar rales R>L Abd: soft, nontender Ext: no edema CBC, BMP 06/25/18 05:30 06/25/18 05:30 Active Medications Acetaminophen (Tylenol -) 650 mg PO Q6H PRN PRN Reason: PAIN LEVEL 1-5 Albuterol/Ipratropium (Duoneb -) 1 amp NEB RQID [facility] Last Admin: 06/25/18 11:13 Dose: 1 amp Apixaban (Eliquis -) 2.5 mg PO BID [facility] Last Admin: 06/25/18 09:41 Dose: 2.5 mg Atorvastatin Calcium (Lipitor -) 10 mg PO [facility] Budesonide/Formoterol Fumarate (Symbicort 80/4.5mcg -) 2 puff IH BID [facility] Last Admin: 06/25/18 09:41 Dose: 2 puff Chlorhexidine Gluconate (Hibiclens For Decolonization -) 1 applic TP HS [facility] Last Admin: 06/24/18 21:10 Dose: 1 applic Vancomycin HCl 1,250 mg/ (Dextrose) 250 mls @ 250 mls/2 hr IVPB Q24H [facility]; Protocol Cefepime HCl 2 gm/ Dextrose 100 mls @ 100 mls/hr IVPB BID [facility]; Protocol Levothyroxine Sodium (Synthroid -) 75 mcg PO DAILY@0700 [facility] Last Admin: 06/25/18 06:03 Dose: 75 mcg Methylprednisolone Sodium Succinate (Solu-Medrol -) 60 mg IVPUSH Q6H-IV [facility] Last Admin: 06/25/18 09:40 Dose: 60 mg Metoprolol Succinate (Toprol Xl -) 5 mg PO Q6H PRN PRN Reason: TACHYCARDIA Multivitamins/Minerals/Vitamin C (Tab-A-Vit -) 1 tab PO DAILY [facility] Last Admin: 06/25/18 09:41 Dose: 1 tab Mupirocin (Bactroban Ointment (For Decolonization) -) 1 applic NS BID [facility] Stop: 06/29/18 21:59 Last Admin: 06/24/18 21:10 Dose: 1 applic Pantoprazole Sodium (Protonix Iv) 40 mg IVPUSH DAILY [facility] Last Admin: 06/25/18 09:41 Dose: 40 mg ASSESSMENT AND PLAN: Acute on Chronic Hypoxic Respiratory Failure Pneumonia Severe Sepsis Acute Kidney Injury Acute COPD Exacerbation Acute on Chronic CHF Atrial Flutter with RVR HTN Hyperlipidemia Hypothyroidism - continue antibiotics - f/u cultures - IV medrol - inhaled bronchodilators standing and PRN - place on high flow O2 - rate control - continue anticoagulation - echocardiogram - monitor urine output, creatinine - continue ICU monitoring critical care time spent in reviewing chart, evaluating patient and formulating plan 35 min
[2018-06-25] MEDS: MUPIROCIN 2% TOPICAL OINTMENT FOR DECOLONIZATION NS SCH ×2 (12:29→21:10)
[2018-06-25] MEDS: CEFEPIME 2 GM in DEXTROSE 5%-WATER 100 ML IVPB SCH ×2 (12:29→21:14)
--- NOTE | 2018-06-25 12:38 | CONS ---
DATE OF CONSULTATION: DATE OF DICTATION: 06/25/2018 REQUESTED BY: Jerson Meza MD This is an 82-year-old man. He has a history of COPD. He reports for the last 6 years his breathing has worsened and he is on oxygen at baseline, 2 L. 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 He was living in the [facility], was recently transitioned to [facility] as he required more rehab and care than could be provided at the assisted-living center. He reports 2 hospitalizations this year, one in November in [facility] for pneumonia and influenza as well as a recent hospitalization in May, when he says he had pneumonia again. He also has a history of atrial fibrillation. He now has been having worsening breathing for the last 2 to 3 days. Denies any fevers or chills. He came to the ER, where he was found to have a fever of 101.6 and he was hypoxic despite his maintenance oxygen. He was placed on BiPAP, which he then refused. He was given Solu-Medrol, vancomycin, levofloxacin, and imipenem. Chest x-ray has a right-sided infiltrate and he is in atrial fibrillation. He reports feeling his breathing has improved overnight. He denies any hemoptysis. He notes that he has a history of hiatal hernia and GERD and has lost some weight recently because he is only able to tolerate small meals. Past medical history is notable for atrial fibrillation, hypertension, COPD, heart failure, chronic kidney disease, hyperlipidemia, hypertension. As well, he has a history of GERD and some dysphagia. He has a history of prostate cancer 20 years ago, treated with seed implants that were subsequently removed. He is allergic to PENICILLIN, which he says has given him hives in the distant past. He is allergic to LISINOPRIL and CRESTOR as well. His medications as an outpatient include levothyroxine, nifedipine, potassium, Protonix, simvastatin, Ventolin, Xanax, Advair Diskus, Centrum vitamins, DuoNeb, Eliquis, furosemide, and hydralazine. FAMILY HISTORY: Noncontributory. 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 He lived in [place] and [place] [facility]. He denies any history of tuberculosis in the past. He does report secondhand smoke, has no history of cigarette or substance use. REVIEW OF SYSTEMS: Notable for weight loss and chronic shortness of breath, which he says has been worsening over the last 6 years. He has no abdominal pain. He denies diarrhea, dysuria, or difficulty urinating. PHYSICAL EXAMINATION: General: He is an elderly man. He is awake, alert, afebrile. Vital Signs: Temperature is 98.2. Pulse 110. Blood pressure 113/75. Respiratory rate 36. He is tachypneic. He is saturating 94% on 4 L. HEENT: Normocephalic. His eyes are anicteric. He has no thrush. Lungs: He has diminished breath sounds at his lung bases. Heart: Tachycardic. Abdomen: Soft, nontender. Extremities: Without edema. Labs are notable for a white count on admission of 22.5, this morning 20.5, hemoglobin 10.2, platelets are 474, INR is 2, BUN 27, creatinine 1.6, LFTs are normal, albumin is 2.2, urinalysis is negative. Vancomycin level this morning is 13. Blood cultures have been sent. Legionella urinary antigen, and sputum culture are pending. Chest x-ray is to be repeated this morning; yesterday revealed a large heart with a right-sided infiltrate, a question of a retrocardiac infiltrate. In summary, this is an 82-year-old man admitted with respiratory failure with hypoxia, was using BiPAP, right lower lobe pneumonia, chronic obstructive pulmonary disease exacerbation, PENICILLIN allergy, chronic kidney disease, atrial fibrillation, recently hospitalized, he states, in early May. Would continue vancomycin to cover for staphylococcus. Would add cefepime for broad gram-negative coverage. Would follow up cultures and urinary antigens. EKG is noted for a prolonged QTc of over 5. Would suggest perhaps repeating his EKG. Would await his urinary antigen results which would be later today to see if he continues to need a quinolone or macrolide. Further recommendations to follow. ERIN ARMSTRONG M.D. [id number] MTDD
[2018-06-25] MEDS: METOPROLOL TARTRATE 5 MG/5 ML VIAL IVPUSH PRN (13:41)
[2018-06-25] MEDS: VANCOMYCIN 1,250 MG in DEXTROSE 5%-WATER - 250 ML IVPB SCH (14:26)
--- NOTE | 2018-06-25 14:47 | PN ---
Physical Exam: SUBJECTIVE: Patient is a 82 y/o male with a history of COPD, HF, afib, CKD, HLD, HTN, and hypothyroidism who is admitted for COPD exacerbation 2/2 to pneumonia. Patient had episodes of tachycardia and tachypneia over night. OBJECTIVE: Vital Signs Temperature 98.3 F 06/25/18 14:00 Pulse Rate 95 H 06/25/18 14:00 Respiratory Rate 33 H 06/25/18 14:00 Blood Pressure 95/64 06/25/18 14:00 O2 Sat by Pulse Oximetry (%) 94 L 06/25/18 12:06 GENERAL: The patient is awake, alert, and fully oriented, in no acute distress. HEAD: Normal with no signs of trauma. EYES: PERRL, extraocular movements intact LUNGS: Breath sounds equal, rhonici at bases, accessory muscle use HEART: Regular rate and rhythm ABDOMEN: Soft, nontender, nondistended, normoactive bowel sounds EXTREMITIES: 2+ pulses, warm, well-perfused, no edema. PSYCH: Normal mood, normal affect. SKIN: Warm, dry, normal turgor, no rashes or lesions noted CBCD WBC 20.5 K/mm3 (4.0-10.0) H 06/25/18 05:30 RBC 3.82 M/mm3 (4.00-5.60) L 06/25/18 05:30 Hgb 10.2 GM/dL (11.7-16.9) L 06/25/18 05:30 Hct 30.7 % (35.4-49) L 06/25/18 05:30 MCV 80.3 fl (80-96) 06/25/18 05:30 MCHC 33.4 g/dl (32.0-35.9) 06/25/18 05:30 RDW 18.2 % (11.9-15.9) H 06/25/18 05:30 Plt Count 474 K/MM3 (134-434) H 06/25/18 05:30 MPV 7.0 fl (7.5-11.1) L 06/25/18 05:30 CMP Sodium 141 mmol/L (136-145) 06/25/18 05:30 Potassium 3.8 mmol/L (3.5-5.1) 06/25/18 05:30 Chloride 105 mmol/L (98-107) 06/25/18 05:30 Carbon Dioxide 25 mmol/L (21-32) 06/25/18 05:30 Anion Gap 11 MMOL/L (8-16) 06/25/18 05:30 BUN 27 mg/dL (7-18) H 06/25/18 05:30 Creatinine 1.6 mg/dL (0.7-1.3) H 06/25/18 05:30 Creat Clearance w eGFR 41.39 (>60) 06/25/18 05:30 Calcium 8.0 mg/dL (8.5-10.1) L 06/25/18 05:30 Total Bilirubin 0.4 mg/dL (0.2-1.0) 06/25/18 05:30 AST 11 U/L (15-37) L D 06/25/18 05:30 ALT 17 U/L (12-78) 06/25/18 05:30 Alkaline Phosphatase 73 U/L (45-117) 06/25/18 05:30 Total Protein 6.1 g/dl (6.4-8.2) L 06/25/18 05:30 Albumin 2.2 g/dl (3.4-5.0) L 06/25/18 05:30 Active Medications Acetaminophen (Tylenol -) 650 mg PO Q6H PRN PRN Reason: PAIN LEVEL 1-5 Albuterol/Ipratropium (Duoneb -) 1 amp NEB RQID [facility] Last Admin: 06/25/18 11:13 Dose: 1 amp Apixaban (Eliquis -) 2.5 mg PO BID [facility] Last Admin: 06/25/18 09:41 Dose: 2.5 mg Atorvastatin Calcium (Lipitor -) 10 mg PO [facility] Budesonide/Formoterol Fumarate (Symbicort 80/4.5mcg -) 2 puff IH BID [facility] Last Admin: 06/25/18 09:41 Dose: 2 puff Chlorhexidine Gluconate (Hibiclens For Decolonization -) 1 applic TP HS [facility] Last Admin: 06/24/18 21:10 Dose: 1 applic Vancomycin HCl 1,250 mg/ (Dextrose) 250 mls @ 250 mls/2 hr IVPB Q24H [facility]; Protocol Last Admin: 06/25/18 14:26 Dose: 250 mls/2 hr Cefepime HCl 2 gm/ Dextrose 100 mls @ 100 mls/hr IVPB BID [facility]; Protocol Last Admin: 06/25/18 12:29 Dose: 100 mls/hr Levothyroxine Sodium (Synthroid -) 75 mcg PO DAILY@0700 [facility] Last Admin: 06/25/18 06:03 Dose: 75 mcg Methylprednisolone Sodium Succinate (Solu-Medrol -) 60 mg IVPUSH Q6H-IV [facility] Last Admin: 06/25/18 09:40 Dose: 60 mg Metoprolol Tartrate (Lopressor Injection -) 5 mg IVPUSH Q4H PRN PRN Reason: HYPERTENSION Last Admin: 06/25/18 13:41 Dose: 5 mg Multivitamins/Minerals/Vitamin C (Tab-A-Vit -) 1 tab PO DAILY [facility] Last Admin: 06/25/18 09:41 Dose: 1 tab Mupirocin (Bactroban Ointment (For Decolonization) -) 1 applic NS BID [facility] Stop: 06/29/18 21:59 Last Admin: 06/25/18 12:29 Dose: 1 applic Pantoprazole Sodium (Protonix Iv) 40 mg IVPUSH DAILY [facility] Last Admin: 06/25/18 09:41 Dose: 40 mg ASSESSMENT/PLAN: Patient is a 82 y/o male with a history of COPD, HF, afib, CKD, HLD, HTN, and hypothyroidism who is admitted for COPD exacerbation 2/2 to pneumonia. #COPD exacerbation 2/2 to pneumonia - CXR: congestive changes and right infiltrate - Vancomycin 1.25 mg - Cefepime 2 gm - BC pending - sputum cx pending - albuterol - budesonide - methylprednisolone 60 mg IV push q 6h - high flow oxygen, saturation good # afib with 2/2 tachycardia - metoprolol 5mg q4h iv push prn HR > 110 - Elliquis 2.5 mg po bid - atorvastatin 10 mg po qhs #hypothyroidism - Levothyroxine 75 mcg #GI ppx - pantoprazole 40 mg IV push daily Dispo: f/u respiratory status DNR/DNI Visit type - Emergency Visit Emergency Visit: No - New Patient This patient is new to me today: Yes Date on this admission: 06/25/18 - Critical Care Critical Care patient: Yes Total Critical Care Time (in minutes): 37 Critical Care Statement: The care of this patient involved high complexity decision making to prevent further life threatening deterioration of the patient 's condition and/or to evaluate & treat vital organ system(s) failure or risk of failure.
--- NOTE | 2018-06-25 19:46 | ECHO ---
Name: DONTRELL GARCIA Exam:Adult Echocardiogram Study Date: 06/25/2018 02:01 PM Age: 82 yrs Reason For Study: h/0 chf Height: 72 in Weight: 179 lb BSA: 2.0 m2 MMode/2D Measurements & Calculations IVSd: 1.3 cm Ao root diam: 3.2 cm LVIDd: 4.2 cm LA dimension: 3.2 cm LVIDs: 2.7 cm LVPWd: 0.99 cm LVPWs: 1.6 cm EDV(Teich): 76.6 ml ESV(Teich): 26.0 ml Doppler Measurements & Calculations MV E max neo: 100.2 cm/sec Ao V2 max: 139.8 cm/sec MV dec time: 0.23 sec Ao max P.8 mmHg LV V1 max P.9 mmHg TR max neo: 274.7 cm/sec LV V1 max: 98.2 cm/sec TR max P.3 mmHg PA V2 max: 92.3 cm/sec Med Peak E' Neo: 10.4 cm/sec PA max P.4 mmHg Med E/e': 9.6 PA acc slope: 271.4 cm/sec2 Lat Peak E' Neo: 15.5 cm/sec PA acc time: 0.34 sec Lat E/e': 6.5 PA pr(Accel): -73.1 mmHg Procedure The study was technically good with many images being of high quality. Left Ventricle The left ventricle is normal in size. There is mild asymmetric left ventricular hypertrophy. Left brigida tricular systolic function is normal. Ejection Fraction = 60-65%. Right Ventricle A moderator band is seen in the right ventricle. The right ventricle is mildly dilated. The right brigida tricular systolic function is borderline reduced. Atria The left atrium is mildly dilated. The right atrium is moderately dilated. A dilated inferior vena ca va suggests increased right atrial pressure. Mitral Valve The mitral valve is normal. There is trace to mild mitral regurgitation. Tricuspid Valve There is mild tricuspid valve thickening. The tricuspid valve is not well visualized, but is grossly normal. There is moderate to severe tricuspid regurgitation. Right ventricular systolic pressure is 25 mmhg. Aortic Valve The aortic valve opens well. There is mild aortic sclerosis.;. The aortic valve is trileaflet. No aor tic regurgitation is present. Pulmonic Valve The pulmonic valve is not well visualized. Moderate pulmonic valvular regurgitation. Great Vessels The aortic root is normal size. Pericardium/Pleura There is no pericardial effusion. Interpretation Summary There is no comparison study available. The left ventricle is normal in size. There is mild asymmetric left ventricular hypertrophy. There is mild aortic sclerosis.; There is trace to mild mitral regurgitation. There is moderate to severe tricuspid regurgitation. Moderate pulmonic valvular regurgitation. Left ventricular systolic function is normal. Ejection Fraction = 60-65%. The left atrium is mildly dilated. The right ventricle is mildly dilated. The right ventricular systolic function is borderline reduced. The right atrium is moderately dilated. A dilated inferior vena cava suggests increased right atrial pressure. Anand Youssef MD 06/25/2018 04:16 PM
[2018-06-25] MEDS: CHLORHEXIDINE GLUCONATE 4% CLEANSER FOR DECOLONIZATION TP SCH (21:10)
[2018-06-25] MEDS: ATORVASTATIN CA 10 MG TABLET (FP) PO SCH (21:11)
[2018-06-26] MEDS: methylPREDNISolone NA SUCC 125 MG/2 ML VIAL IVPUSH SCH ×2 (03:31→09:30)
[2018-06-26] MEDS: LEVOTHYROXINE NA 75 MCG TABLET (FP) PO SCH (06:07)
[2018-06-26 06:48] LABS: HEMATOCRIT 29.9 % (35.4-49); HEMOGLOBIN 9.7 GM/dL (11.7-16.9); MCH 26.2 pg (25.7-33.7); MCHC 32.6 g/dl (32.0-35.9); MEAN CELL VOLUME 80.5 fl (80-96); MEAN PLT VOLUME 6.9 fl (7.5-11.1); PLATELET COUNT 497 K/MM3 (134-434); RBC 3.71 M/mm3 (4.00-5.60); WHITE BLOOD COUNT 19.8 K/mm3 (4.0-10.0)
[2018-06-26 07:08] LABS: BLOOD UREA NITROGEN 41 mg/dL (7-18); CHLORIDE 109 mmol/L (98-107); CO2 25 mmol/L (21-32); GLUCOSE,RANDOM 152 mg/dL (74-106); POTASSIUM 3.8 mmol/L (3.5-5.1); SODIUM 142 mmol/L (136-145)
[2018-06-26 07:09] LABS: ALBUMIN 2.2 g/dl (3.4-5.0); ANION GAP 8 MMOL/L (8-16); CALCIUM 8.2 mg/dL (8.5-10.1); MAGNESIUM 2.6 mg/dL (1.8-2.4)
[2018-06-26 07:13] LABS: ALK PHOS 69 U/L (45-117); BILIRUBIN,TOTAL 0.3 mg/dL (0.2-1.0); CREATININE 1.7 mg/dL (0.7-1.3); PHOSPHOROUS 4.2 mg/dL (2.5-4.9); SGOT/AST 14 U/L (15-37); SGPT/ALT 20 U/L (12-78)
[2018-06-26] MEDS: ALBUTEROL SO4 2.5/IPRATROPIUM 0.5 INH SOL 3 ML VIAL.NEB. NEB SCH ×4 (08:05→20:54)
--- NOTE | 2018-06-26 09:10 | PN ---
Physical Exam: SUBJECTIVE: Patient is a 82 y/o male with a history of COPD, HF, afib, CKD, HLD, HTN, and hypothyroidism who is admitted for COPD exacerbation 2/2 to pneumonia. Patient had no acute events overnight. Patient is on high flow oxygen at 10 L and reports he feels better with it. OBJECTIVE: Vital Signs Temperature 97.8 F 06/26/18 06:00 Pulse Rate 96 H 06/26/18 07:34 Respiratory Rate 24 06/26/18 07:34 Blood Pressure 125/88 06/26/18 07:34 O2 Sat by Pulse Oximetry (%) 96 06/26/18 08:05 GENERAL: The patient is awake, alert, and fully oriented, in no acute distress. HEAD: Normal with no signs of trauma. EYES: PERRL, extraocular movements intact LUNGS: Breath sounds equal, rhonici at bases, accessory muscle use HEART: Regular rate and rhythm ABDOMEN: Soft, nontender, nondistended, normoactive bowel sounds EXTREMITIES: 2+ pulses, warm, well-perfused, no edema. PSYCH: Normal mood, normal affect. SKIN: Warm, dry, normal turgor, no rashes or lesions noted CBC, BMP 06/26/18 05:45 06/26/18 05:45 Active Medications Acetaminophen (Tylenol -) 650 mg PO Q6H PRN PRN Reason: PAIN LEVEL 1-5 Albuterol/Ipratropium (Duoneb -) 1 amp NEB RQID [facility] Last Admin: 06/26/18 08:05 Dose: 1 amp Apixaban (Eliquis -) 2.5 mg PO BID [facility] Last Admin: 06/25/18 21:10 Dose: 2.5 mg Atorvastatin Calcium (Lipitor -) 10 mg PO HS [facility] Last Admin: 06/25/18 21:11 Dose: 10 mg Budesonide/Formoterol Fumarate (Symbicort 80/4.5mcg -) 2 puff IH BID [facility] Last Admin: 06/25/18 21:26 Dose: 2 puff Chlorhexidine Gluconate (Hibiclens For Decolonization -) 1 applic TP HS [facility] Last Admin: 06/25/18 21:10 Dose: 1 applic Vancomycin HCl 1,250 mg/ (Dextrose) 250 mls @ 250 mls/2 hr IVPB Q24H [facility]; Protocol Last Admin: 06/25/18 14:26 Dose: 250 mls/2 hr Cefepime HCl 2 gm/ Dextrose 100 mls @ 100 mls/hr IVPB BID [facility]; Protocol Last Admin: 06/25/18 21:14 Dose: 100 mls/hr Levothyroxine Sodium (Synthroid -) 75 mcg PO DAILY@0700 [facility] Last Admin: 06/26/18 06:07 Dose: 75 mcg Methylprednisolone Sodium Succinate (Solu-Medrol -) 60 mg IVPUSH Q6H-IV [facility] Last Admin: 06/26/18 03:31 Dose: 60 mg Metoprolol Tartrate (Lopressor Injection -) 5 mg IVPUSH Q4H PRN PRN Reason: HYPERTENSION Last Admin: 06/25/18 13:41 Dose: 5 mg Multivitamins/Minerals/Vitamin C (Tab-A-Vit -) 1 tab PO DAILY [facility] Last Admin: 06/25/18 09:41 Dose: 1 tab Mupirocin (Bactroban Ointment (For Decolonization) -) 1 applic NS BID [facility] Stop: 06/29/18 21:59 Last Admin: 06/25/18 21:10 Dose: 1 applic Pantoprazole Sodium (Protonix Iv) 40 mg IVPUSH DAILY [facility] Last Admin: 06/25/18 09:41 Dose: 40 mg ASSESSMENT/PLAN: Patient is a 82 y/o male with a history of COPD, HF, afib, CKD, HLD, HTN, and hypothyroidism who is admitted for COPD exacerbation 2/2 to pneumonia. Pulmonary COPD exacerbation 2/2 to pneumonia - CXR: congestive changes and right infiltrate - albuterol 1 amp q6h - budesonide - methylprednisolone 40 mg IV push q8h - high flow oxygen @ 10L, keep O2 saturation below 95% Cardiology afib with 2/2 tachycardia - metoprolol 5mg q4h iv push prn HR > 110 - Elliquis 2.5 mg po bid - atorvastatin 10 mg po qhs - Echo: LV normal, mild LV hypertrophy, mild aortic stenosis, moderate tricuspid regurgitation, RA moderately dilated GI GI ppx - pantoprazole 40 mg IV push daily Infectious Disease Pneumonia - Vancomycin 1.25 mg ( day 2) - Cefepime 2 gm ( day 2) - BC pending - sputum cx pending Endocrine hypothyroidism - Levothyroxine 75 mcg Dispo: f/u respiratory status DNR/DNI Visit type - Emergency Visit Emergency Visit: No - New Patient This patient is new to me today: No - Critical Care Critical Care patient: Yes Total Critical Care Time (in minutes): 40 Critical Care Statement: The care of this patient involved high complexity decision making to prevent further life threatening deterioration of the patient 's condition and/or to evaluate & treat vital organ system(s) failure or risk of failure.
--- NOTE | 2018-06-26 09:24 | PN ---
Progress Note (short form) - Note Progress Note: pt seen/ examined in icu on high flow oxygen looks and feels better still dysnic all f/u noted Vital Signs Temp 97.8 F 06/26/18 06:00 Pulse 96 H 06/26/18 07:34 Resp 24 06/26/18 07:34 BP 125/88 06/26/18 07:34 Pulse Ox 96 06/26/18 08:05 Intake & Output 06/25/18 06/25/18 06/26/18 11:59 23:59 11:59 Intake Total 360 450 150 Output Total 300 600 Balance 360 150 -450 Weight 179 lb 6.4 oz 174 lb 5 oz Intake: IVPB 450 100 Oral 360 50 Output: Urine 300 600 Void 300 600 Other: Voiding Method Bedpan Urinal Urinal # Unmeasured Voids Void 1 1 Bowel Movement No Weight Measurement Method Built in Bedscale Built in Bedscale Active Medications Acetaminophen (Tylenol -) 650 mg PO Q6H PRN PRN Reason: PAIN LEVEL 1-5 Albuterol/Ipratropium (Duoneb -) 1 amp NEB RQID [facility] Last Admin: 06/26/18 08:05 Dose: 1 amp Apixaban (Eliquis -) 2.5 mg PO BID [facility] Last Admin: 06/25/18 21:10 Dose: 2.5 mg Atorvastatin Calcium (Lipitor -) 10 mg PO [facility] Last Admin: 06/25/18 21:11 Dose: 10 mg Budesonide/Formoterol Fumarate (Symbicort 80/4.5mcg -) 2 puff IH BID [facility] Last Admin: 06/25/18 21:26 Dose: 2 puff Chlorhexidine Gluconate (Hibiclens For Decolonization -) 1 applic TP HS [facility] Last Admin: 06/25/18 21:10 Dose: 1 applic Vancomycin HCl 1,250 mg/ (Dextrose) 250 mls @ 250 mls/2 hr IVPB Q24H [facility]; Protocol Last Admin: 06/25/18 14:26 Dose: 250 mls/2 hr Cefepime HCl 2 gm/ Dextrose 100 mls @ 100 mls/hr IVPB BID [facility]; Protocol Last Admin: 06/25/18 21:14 Dose: 100 mls/hr Levothyroxine Sodium (Synthroid -) 75 mcg PO DAILY@0700 [facility] Last Admin: 06/26/18 06:07 Dose: 75 mcg Methylprednisolone Sodium Succinate (Solu-Medrol -) 60 mg IVPUSH Q6H-IV [facility] Last Admin: 06/26/18 03:31 Dose: 60 mg Metoprolol Tartrate (Lopressor Injection -) 5 mg IVPUSH Q4H PRN PRN Reason: HYPERTENSION Last Admin: 06/25/18 13:41 Dose: 5 mg Multivitamins/Minerals/Vitamin C (Tab-A-Vit -) 1 tab PO DAILY [facility] Last Admin: 06/25/18 09:41 Dose: 1 tab Mupirocin (Bactroban Ointment (For Decolonization) -) 1 applic NS BID [facility] Stop: 06/29/18 21:59 Last Admin: 06/25/18 21:10 Dose: 1 applic Pantoprazole Sodium (Protonix Iv) 40 mg IVPUSH DAILY [facility] Last Admin: 06/25/18 09:41 Dose: 40 mg CBC, BMP 06/26/18 05:45 06/26/18 05:45 echo-noted cxr - improved aeration Physical Examination Constitutional: Yes: comfortable. Eyes: Yes: Conjunctiva Clear Neck: Yes: Supple, Other (no jvd) Cardiovascular: Yes: Pulse Irregular Respiratory: Yes: Bilateral rhonchi Gastrointestinal: Yes: Soft/ non tender Edema: No Neurological: Yes: Alert Psychiatric: Yes: Alert Assessment/Plan Slight improvement Better On high flow oxygen Abx Steroids nebulizer treatment Monitor bp Continue other meds continue other meds will follow Discussed with nursing staff/ icu attending Problem List - Problems (1) Respiratory failure with hypoxia Code(s): J96.91 - RESPIRATORY FAILURE, UNSPECIFIED WITH HYPOXIA (2) Chronic diastolic CHF (congestive heart failure) Code(s): I50.32 - CHRONIC DIASTOLIC (CONGESTIVE) HEART FAILURE (3) HTN (hypertension) Code(s): I10 - ESSENTIAL (PRIMARY) HYPERTENSION Qualifiers: Hypertension type: essential hypertension Qualified Code(s): I10 - Essential (primary) hypertension (4) Hypothyroidism Code(s): E03.9 - HYPOTHYROIDISM, UNSPECIFIED Qualifiers: Hypothyroidism type: unspecified Qualified Code(s): E03.9 - Hypothyroidism , unspecified (5) Paroxysmal A-fib Code(s): I48.0 - PAROXYSMAL ATRIAL FIBRILLATION
[2018-06-26] MEDS: CEFEPIME 2 GM in DEXTROSE 5%-WATER 100 ML IVPB SCH ×2 (09:30→21:57)
[2018-06-26] MEDS: APIXABAN 2.5 MG TABLET PO SCH ×2 (09:30→21:57)
[2018-06-26] MEDS: MULTIVITAMINS (DAILY MVI) TABLET (FP) PO SCH (09:30)
[2018-06-26] MEDS: PANTOPRAZOLE SODIUM 40 MG VIAL IVPUSH SCH (09:30)
[2018-06-26] MEDS: MUPIROCIN 2% TOPICAL OINTMENT FOR DECOLONIZATION NS SCH ×2 (09:31→21:58)
[2018-06-26] MEDS: BUDESONIDE/FORMETEROL FUMARATE 80/4.5 mcg INHALER IH SCH ×2 (09:31→21:58)
--- NOTE | 2018-06-26 11:54 | PN ---
Teaching Attending Note Name of Resident: Kathleen Martinez ATTENDING PHYSICIAN STATEMENT I saw and evaluated the patient. I reviewed the resident's note and discussed the case with the resident. I agree with the resident's findings and plan as documented. SUBJECTIVE: Pt seen and examined in the ICU. Remains on high flow O2. States breathing is better today. +cough with white sputum. No fevers recorded. OBJECTIVE: Vital Signs Period Temp Pulse Resp BP Sys/[place] Pulse Ox Last 24 Hr 97.8 F-99.2 F 84-128 20-41 95-153/64-90 93-96 Intake & Output 06/23/18 06/24/18 06/25/18 06/26/18 23:59 23:59 23:59 23:59 Intake Total 990 810 150 Output Total 300 300 600 Balance 690 510 -450 Weight 78.727 kg 81.374 kg 79.067 kg Gen: less tachypneic Heart: tachycardic, irregular Lung: scattered wheezes Abd: soft, nontender Ext: no edema CBC, BMP 06/26/18 05:45 06/26/18 05:45 Active Medications Acetaminophen (Tylenol -) 650 mg PO Q6H PRN PRN Reason: PAIN LEVEL 1-5 Albuterol Sulfate (Ventolin 0.083% Nebulizer Soln -) 1 amp NEB Q6H PRN PRN Reason: SHORT OF BREATH/WHEEZING Albuterol/Ipratropium (Duoneb -) 1 amp NEB RQID [facility] Last Admin: 06/26/18 08:05 Dose: 1 amp Apixaban (Eliquis -) 2.5 mg PO BID [facility] Last Admin: 06/26/18 09:30 Dose: 2.5 mg Atorvastatin Calcium (Lipitor -) 10 mg PO HS [facility] Last Admin: 06/25/18 21:11 Dose: 10 mg Budesonide/Formoterol Fumarate (Symbicort 80/4.5mcg -) 2 puff IH BID [facility] Last Admin: 06/26/18 09:31 Dose: 2 puff Chlorhexidine Gluconate (Hibiclens For Decolonization -) 1 applic TP [facility] Last Admin: 06/25/18 21:10 Dose: 1 applic Vancomycin HCl 1,250 mg/ (Dextrose) 250 mls @ 250 mls/2 hr IVPB Q24H [facility]; Protocol Last Admin: 06/25/18 14:26 Dose: 250 mls/2 hr Cefepime HCl 2 gm/ Dextrose 100 mls @ 100 mls/hr IVPB BID [facility]; Protocol Last Admin: 06/26/18 09:30 Dose: 100 mls/hr Levothyroxine Sodium (Synthroid -) 75 mcg PO DAILY@0700 [facility] Last Admin: 06/26/18 06:07 Dose: 75 mcg Methylprednisolone Sodium Succinate (Solu-Medrol -) 40 mg IVPUSH Q8H [facility] Metoprolol Tartrate (Lopressor Injection -) 5 mg IVPUSH Q4H PRN PRN Reason: HYPERTENSION Last Admin: 06/25/18 13:41 Dose: 5 mg Multivitamins/Minerals/Vitamin C (Tab-A-Vit -) 1 tab PO DAILY [facility] Last Admin: 06/26/18 09:30 Dose: 1 tab Mupirocin (Bactroban Ointment (For Decolonization) -) 1 applic NS BID [facility] Stop: 06/29/18 21:59 Last Admin: 06/26/18 09:31 Dose: Not Given Pantoprazole Sodium (Protonix Iv) 40 mg IVPUSH DAILY [facility] Last Admin: 06/26/18 09:30 Dose: 40 mg ASSESSMENT AND PLAN: Acute on Chronic Hypoxic Respiratory Failure Pneumonia Severe Sepsis Acute Kidney Injury Acute COPD Exacerbation Acute on Diastolic Heart Failure Atrial Flutter with RVR HTN Hyperlipidemia Hypothyroidism - continue antibiotics - f/u cultures - can decrease medrol - inhaled bronchodilators standing and PRN - continue high flow O2 - rate control - continue anticoagulation - monitor urine output, creatinine - continue ICU monitoring critical care time spent in reviewing chart, evaluating patient and formulating plan 35 min
[2018-06-26] MEDS: VANCOMYCIN 1,250 MG in DEXTROSE 5%-WATER - 250 ML IVPB SCH (12:33)
--- NOTE | 2018-06-26 12:52 | CONSULT ---
Admitting History and Physical - Primary Care Physician PCP: Jerson Meza - Admission History of Present Illness: Patient is a 82 y/o male with a history of COPD, HF, afib, CKD, HLD, HTN, and hypothyroidism who is admitted for COPD exacerbation 2/2 to pneumonia. COPD exacerbation 2/2 to pneumonia - CXR: congestive changes and right infiltrate Selected Entries 06/25/18 06/25/18 06/25/18 02:00 06:00 08:00 Breakfast Lunch Temperature 98.4 F 98.6 F 98.2 F 06/25/18 06/25/18 06/25/18 09:46 10:00 12:00 Breakfast 100% Lunch Temperature 98.1 F 98.0 F 06/25/18 06/25/18 06/25/18 13:18 14:00 16:00 Breakfast Lunch NPO Temperature 98.3 F 98.1 F 06/25/18 06/25/18 06/26/18 18:00 22:00 02:00 Breakfast Lunch Temperature 98.2 F 99.2 F 98 F 06/26/18 06/26/18 06/26/18 06:00 09:48 12:41 Breakfast 50% Lunch Temperature 97.8 F 98.1 F Laboratory Tests 06/24/18 06/25/18 06/26/18 11:30 05:30 05:45 WBC 22.5 H 20.5 H 19.8 H On hi-Flow o2. Dys whole/nectar ordered. Pt allowed sips of thin water. Pt was on Reg diet and thin liquid at [facility]. Pt reports that he had swallowing tx at [facility].He reports white phlegm and stasis, needing to drink sips of water to clear his throat. He says he is ALLERGIC TO BARIUM, and gets a rash. This is my first consult with this pt - Past Medical History Cardiovascular: Yes: AFIB, HTN Pulmonary: Yes: COPD Renal/: Yes: Renal Inusuff Endocrine: Yes: Hypothyroidism - Smoking History Smoking history: Never smoked Have you smoked in the past 12 months: No - Alcohol/Substance Use Hx Alcohol Use: No History - Admission Reason For Visit: HYPERTENSION/HYPOXIA/OBS PUL DIS - Diagnostics X-ray: Report Reviewed - General Mental Status: Alert and Oriented, Awake and Alert, Able to Follow Commands, Forgetful (Pt says he has Alzheimers, and closes his eyes to concentrate.) Attention: Intact Ability to Follow Directions: Good - Hearing Hearing: Normal Hearing Aide: No With Patient: No Speech Evaluation - Communication Primary Language: [place] Communication: Yes: Within Normal Limits Oral Expression Ability: Yes: Mild Impairment (occasional anomia) - Speech Production Able to Make Needs Known: Yes: WNL Intelligibility: Yes: WNL - Speech Characteristics Voice Loudness: Normal Voice Pitch: Yes: Normal Voice Phonatory-based Quality: Yes: Dysphonia (mild), Vocal Wetness ( intermittent) Speech Pattern: Normal Speech Clarity: < 100% Nasal Resonance: Normal Articulation: Yes: Precise Rate of Speech: Intact Voice, Other Observations: Yes: Inadequate Breath Support (RR increases while speaking. On Hi-bekah) - Language/Auditory Comprehension Follows: Yes: 1 Stage Simple Commands Observation: Able to respond to yes/no queries: Yes, Yes/No Confusion: No, Comprehends Conversational Speech: Yes - Language/Verbal Expression Aphasia: Yes: Anomia Able to Respond to Simple Queries: Yes: WNL Able to Communicate Wants and Needs: Yes: WNL Functional Communication Status: Yes: WNL - Swallow Evaluation/Bedside Assessment Current Nutritional Intake: Dysphagia Whole (Pt "picks and chooses wht he can tolerate on each plate"), [place] Textured Liquids Oral Secretions: Yes: Tongue Coated (reports white sticky phlegm always) Dentition: Yes: Adequate Facial Symmetry at Rest: Symmetrical Facial Symmetry on Retraction: Symmetrical Against Resistance Opening: Normal Against Resistance Closing: Normal Pucker Lips: Normal Smile: Normal Lingual Movement: Normal, Symmetric Lingual Speed of Movement: Normal Lingual Movement Characteristics: Normal Velopharyngeal Movement: Normal Laryngeal Movement: Labored,delay initiation Rate of Intake: Slow/Holding Bolus Size: Small Labial Seal: WFL Chewing: Impaired (extended. Reports food sticking at times) Oral Prep Time: Increased Timing of Swallow: Delayed Coughing/Throat Clear: No Change in Voice: No Recommendations - Speech Evaluation, Impression/Plan Impression: Pt reports HH, Food/white phlegm sticking, If he eats too much he gets abdominal distress, so he never eats a lot. He reports GI w/u 5 years ago. "Everything was ok.". No cough with sips of thin liquid. Reflux? - Dysphagia Impressions/Plan Dysphagia Impressions: Mild Impairment, Ongoing Evaluation *Silent aspiration: cannot be R/O at bedside Dysphagia Treatment Plan: Swallowing Exercises, Small Bites, Chin Tuck/Down, Trial Feedings, Safe Rate, 1/2 tsp. at a time, Elevate HOB during feed Recommendations: MBS w Esophagus (indicated. However, pt reports that he is ALLERGIC TO BARIUM/ gets a rash.), Other (Alternate solids with liquid. HOB elevated x 1 hour after meals. GERD/LPR precautions.) - Recommendations Diet Consistency: Regular (soft, easy to chew, as tolerated. menu selection) Medication Administration: Whole with water Liquids: Thin Liquids
--- NOTE | 2018-06-26 13:39 | PN ---
Progress Note (short form) - Note Progress Note: on high flow oxygen still tachypneic white sputum production Vital Signs Period Temp Pulse Resp BP Sys/De Santiago Pulse Ox Last 24 Hr 97.8 F-99.2 F 84-128 20-41 95-153/64-90 93-96 cor-rrr lungs decreased bs on the left abd soft,nt ext no edema CBC, BMP 06/26/18 05:45 06/26/18 05:45 Microbiology 06/24/18 11:30 Blood - Peripheral Venous Blood Culture - Preliminary NO GROWTH OBTAINED AFTER 48 HOURS, INCUBATION TO CONTINUE FOR 3 DAYS. 06/24/18 11:30 Blood - Peripheral Venous Blood Culture - Preliminary NO GROWTH OBTAINED AFTER 48 HOURS, INCUBATION TO CONTINUE FOR 3 DAYS. 06/25/18 07:00 Sputum - Expectorated Gram Stain - Final 06/25/18 07:00 Sputum - Expectorated Sputum Culture - Preliminary NORMAL RESPIRATORY JOANNA 06/24/18 21:15 Blood - Peripheral Venous Blood Culture - Preliminary NO GROWTH OBTAINED AFTER 24 HOURS, INCUBATION TO CONTINUE FOR 4 DAYS. 06/24/18 21:10 Blood - Peripheral Venous Blood Culture - Preliminary NO GROWTH OBTAINED AFTER 24 HOURS, INCUBATION TO CONTINUE FOR 4 DAYS. 06/24/18 19:50 Urine - Urine Clean Catch Legionella Antigen - Final 06/24/18 19:50 Urine - Urine Clean Catch Streptococcus pneumoniae Antigen ( M - Final 06/24/18 13:51 Urine - Urine Clean Catch Urine Culture - Final NO GROWTH OBTAINED a/p resp failure with hypoxia RLL pneumonia copd exacerbation Penicillin allergy ckd afib prolonged Qtc continue vancomycin and cefepime #2 MRSA screen reports multiple hospitalizations in the past Problem List - Problems (1) Respiratory failure with hypoxia Code(s): J96.91 - RESPIRATORY FAILURE, UNSPECIFIED WITH HYPOXIA (2) Pneumonia Code(s): J18.9 - PNEUMONIA, UNSPECIFIED ORGANISM (3) COPD exacerbation Code(s): J44.1 - CHRONIC OBSTRUCTIVE PULMONARY DISEASE W (ACUTE) EXACERBATION (4) CKD (chronic kidney disease) Code(s): N18.9 - CHRONIC KIDNEY DISEASE, UNSPECIFIED Qualifiers: Chronic kidney disease stage: unspecified stage Qualified Code(s): N18.9 - Chronic kidney disease, unspecified (5) Penicillin allergy Code(s): Z88.0 - ALLERGY STATUS TO PENICILLIN
[2018-06-26] MEDS: methylPREDNISolone NA SUCC 40 MG/1 ML VIAL IVPUSH SCH (17:12)
[2018-06-26 19:43] LABS: ARTERIAL BLOOD GAS PCO2 33.6 mmHg (35-45); ARTERIAL BLOOD GAS pH 7.44 (7.35-7.45)
[2018-06-26 19:44] LABS: ALLENS TEST POSITIVE; ARTERIAL BLD GAS O2 SATURATION 92.9 % (90-98.9); ARTERIAL BLOOD GAS BASE EXCESS -0.7 meq/l (-2-2); ARTERIAL BLOOD GAS PO2 67.6 mmHg (68-100)
[2018-06-26] MEDS ORDERED: PT OWN MED DRAWER 7, Y5N ONE (21:55)
[2018-06-26] MEDS: ATORVASTATIN CA 10 MG TABLET (FP) PO SCH (21:57)
[2018-06-26] MEDS: CHLORHEXIDINE GLUCONATE 4% CLEANSER FOR DECOLONIZATION TP SCH (21:57)
[2018-06-27] MEDS: methylPREDNISolone NA SUCC 40 MG/1 ML VIAL IVPUSH SCH ×3 (01:53→18:18)
[2018-06-27 06:16] LABS: HEMATOCRIT 30.6 % (35.4-49); HEMOGLOBIN 9.9 GM/dL (11.7-16.9); LYMPH % 1.2 % (8-40); MCH 26.2 pg (25.7-33.7); MCHC 32.5 g/dl (32.0-35.9); MEAN CELL VOLUME 80.8 fl (80-96); MONO % 5.1 % (3.8-10.2); NEUT % 93.7 % (42.8-82.8); PLATELET COUNT 562 K/MM3 (134-434); RBC 3.79 M/mm3 (4.00-5.60); RDW 18.3 % (11.9-15.9); WHITE BLOOD COUNT 16.1 K/mm3 (4.0-10.0)
[2018-06-27] MEDS: LEVOTHYROXINE NA 75 MCG TABLET (FP) PO SCH (06:48)
[2018-06-27 06:50] LABS: CHLORIDE 107 mmol/L (98-107); POTASSIUM 3.9 mmol/L (3.5-5.1); SODIUM 143 mmol/L (136-145)
[2018-06-27 07:00] LABS: ALBUMIN 2.2 g/dl (3.4-5.0); ALK PHOS 71 U/L (45-117); ANION GAP 10 MMOL/L (8-16); BILIRUBIN,TOTAL 0.3 mg/dL (0.2-1.0); BLOOD UREA NITROGEN 43 mg/dL (7-18); CALCIUM 7.9 mg/dL (8.5-10.1); CO2 26 mmol/L (21-32); CREATININE 1.5 mg/dL (0.7-1.3); GLUCOSE,RANDOM 145 mg/dL (74-106); MAGNESIUM 2.7 mg/dL (1.8-2.4); PHOSPHOROUS 3.9 mg/dL (2.5-4.9); SGOT/AST 25 U/L (15-37); SGPT/ALT 29 U/L (12-78); TOT PROT 6.1 g/dl (6.4-8.2)
[2018-06-27] MEDS: ALBUTEROL SO4 2.5/IPRATROPIUM 0.5 INH SOL 3 ML VIAL.NEB. NEB SCH ×4 (08:30→20:17)
[2018-06-27] MEDS ORDERED: PT OWN MED DRAWER 7, Y5N ONE (09:04)
[2018-06-27] MEDS: BUDESONIDE/FORMETEROL FUMARATE 80/4.5 mcg INHALER IH SCH ×2 (09:11→21:33)
[2018-06-27] MEDS: CEFEPIME 2 GM in DEXTROSE 5%-WATER 100 ML IVPB SCH ×2 (09:11→21:27)
[2018-06-27] MEDS: MULTIVITAMINS (DAILY MVI) TABLET (FP) PO SCH (09:11)
[2018-06-27] MEDS: APIXABAN 2.5 MG TABLET PO SCH ×2 (09:11→21:26)
[2018-06-27] MEDS: PANTOPRAZOLE SODIUM 40 MG VIAL IVPUSH SCH (09:11)
[2018-06-27] MEDS: MUPIROCIN 2% TOPICAL OINTMENT FOR DECOLONIZATION NS SCH ×2 (09:11→21:26)
[2018-06-27 10:21] LABS: ANISOCYTOSIS 1+; MACROCYTOSIS 0; PLATELET ESTIMATE INCREASED
--- NOTE | 2018-06-27 10:53 | PN ---
Progress Note (short form) - Note Progress Note: on high flow oxygen still tachypneic feels weak Vital Signs Period Temp Pulse Resp BP Sys/De Santiago Pulse Ox Last 24 Hr 98 F-98.9 F 73-112 22-32 120-144/60-97 93-98 cor-rrr lungs decreased bs at the bases abd soft, nt ext no edema CBC, BMP 06/27/18 05:30 06/27/18 05:30 legionella antigen negative Microbiology 06/24/18 21:15 Blood - Peripheral Venous Blood Culture - Preliminary NO GROWTH OBTAINED AFTER 48 HOURS, INCUBATION TO CONTINUE FOR 3 DAYS. 06/24/18 21:10 Blood - Peripheral Venous Blood Culture - Preliminary NO GROWTH OBTAINED AFTER 48 HOURS, INCUBATION TO CONTINUE FOR 3 DAYS. 06/24/18 11:30 Blood - Peripheral Venous Blood Culture - Preliminary NO GROWTH OBTAINED AFTER 48 HOURS, INCUBATION TO CONTINUE FOR 3 DAYS. 06/24/18 11:30 Blood - Peripheral Venous Blood Culture - Preliminary NO GROWTH OBTAINED AFTER 48 HOURS, INCUBATION TO CONTINUE FOR 3 DAYS. 06/25/18 07:00 Sputum - Expectorated Gram Stain - Final 06/25/18 07:00 Sputum - Expectorated Sputum Culture - Preliminary NORMAL RESPIRATORY JOANNA 06/24/18 19:50 Urine - Urine Clean Catch Legionella Antigen - Final 06/24/18 19:50 Urine - Urine Clean Catch Streptococcus pneumoniae Antigen ( M - Final 06/24/18 13:51 Urine - Urine Clean Catch Urine Culture - Final NO GROWTH OBTAINED cxray unchanged a/p resp failure with hypoxia RLL pneumonia copd exacerbation Penicillin allergy ckd afib prolonged Qtc continue cefepime/vancomycin if mrsa screen is negative can d/c vancomycin Problem List - Problems (1) Respiratory failure with hypoxia Code(s): J96.91 - RESPIRATORY FAILURE, UNSPECIFIED WITH HYPOXIA (2) Pneumonia Code(s): J18.9 - PNEUMONIA, UNSPECIFIED ORGANISM (3) COPD exacerbation Code(s): J44.1 - CHRONIC OBSTRUCTIVE PULMONARY DISEASE W (ACUTE) EXACERBATION (4) CKD (chronic kidney disease) Code(s): N18.9 - CHRONIC KIDNEY DISEASE, UNSPECIFIED Qualifiers: Chronic kidney disease stage: unspecified stage Qualified Code(s): N18.9 - Chronic kidney disease, unspecified (5) Penicillin allergy Code(s): Z88.0 - ALLERGY STATUS TO PENICILLIN
--- NOTE | 2018-06-27 11:28 | PN ---
Progress Note (short form) - Note Progress Note: patient seen and examined in ICU. He remains on high flow oxygen Feels worse today Denies chest pain Cough with whitish expectorant Afebrile all follow-ups noted/Appreciated Vital Signs Temp 98.7 F 06/27/18 10:00 Pulse 90 06/27/18 10:00 Resp 26 H 06/27/18 10:00 BP 136/82 06/27/18 10:00 Pulse Ox 96 06/27/18 09:54 Intake & Output 06/26/18 06/26/18 06/27/18 11:59 23:59 11:59 Intake Total 150 450 100 Output Total 600 650 400 Balance -450 -200 -300 Weight 174 lb 5 oz 174 lb 174 lb 1.6 oz Intake: IVPB 100 450 100 Oral 50 Output: Urine 600 650 400 Void 600 650 400 Other: Voiding Method Urinal Urinal Urinal Height 6 ft Body Mass Index (BMI) 23.6 Weight Measurement Method [facility] Medications Acetaminophen (Tylenol -) 650 mg PO Q6H PRN PRN Reason: PAIN LEVEL 1-5 Albuterol Sulfate (Ventolin 0.083% Nebulizer Soln -) 1 amp NEB Q6H PRN PRN Reason: SHORT OF BREATH/WHEEZING Albuterol/Ipratropium (Duoneb -) 1 amp NEB RQID [facility] Last Admin: 06/27/18 08:30 Dose: 1 amp Apixaban (Eliquis -) 2.5 mg PO BID [facility] Last Admin: 06/27/18 09:11 Dose: 2.5 mg Atorvastatin Calcium (Lipitor -) 10 mg PO [facility] Last Admin: 06/26/18 21:57 Dose: 10 mg Budesonide/Formoterol Fumarate (Symbicort 80/4.5mcg -) 2 puff IH BID [facility] Last Admin: 06/27/18 09:11 Dose: 2 puff Chlorhexidine Gluconate (Hibiclens For Decolonization -) 1 applic TP [facility] Last Admin: 06/26/18 21:57 Dose: 1 applic Vancomycin HCl 1,250 mg/ (Dextrose) 250 mls @ 250 mls/2 hr IVPB Q24H [facility]; Protocol Last Admin: 06/26/18 12:33 Dose: 250 mls/2 hr Cefepime HCl 2 gm/ Dextrose 100 mls @ 100 mls/hr IVPB BID [facility]; Protocol Last Admin: 06/27/18 09:11 Dose: 100 mls/hr Levothyroxine Sodium (Synthroid -) 75 mcg PO DAILY@0700 [facility] Last Admin: 06/27/18 06:48 Dose: 75 mcg Methylprednisolone Sodium Succinate (Solu-Medrol -) 40 mg IVPUSH Q8H-IV [facility] Last Admin: 06/27/18 09:11 Dose: 40 mg Metoprolol Tartrate (Lopressor Injection -) 5 mg IVPUSH Q4H PRN PRN Reason: HYPERTENSION Last Admin: 06/25/18 13:41 Dose: 5 mg Multivitamins/Minerals/Vitamin C (Tab-A-Vit -) 1 tab PO DAILY [facility] Last Admin: 06/27/18 09:11 Dose: 1 tab Mupirocin (Bactroban Ointment (For Decolonization) -) 1 applic NS BID [facility] Stop: 06/29/18 21:59 Last Admin: 06/27/18 09:11 Dose: 1 applic Pantoprazole Sodium (Protonix Iv) 40 mg IVPUSH DAILY [facility] Last Admin: 06/27/18 09:11 Dose: 40 mg CBC, BMP 06/27/18 05:30 06/27/18 05:30 Microbiology 06/24/18 21:15 Blood Culture - Preliminary Blood - Peripheral Venous NO GROWTH OBTAINED AFTER 48 HOURS, INCUBATION TO CONTINUE FOR 3 DAYS. 06/24/18 21:10 Blood Culture - Preliminary Blood - Peripheral Venous NO GROWTH OBTAINED AFTER 48 HOURS, INCUBATION TO CONTINUE FOR 3 DAYS. 06/24/18 11:30 Blood Culture - Preliminary Blood - Peripheral Venous NO GROWTH OBTAINED AFTER 48 HOURS, INCUBATION TO CONTINUE FOR 3 DAYS. 06/24/18 11:30 Blood Culture - Preliminary Blood - Peripheral Venous NO GROWTH OBTAINED AFTER 48 HOURS, INCUBATION TO CONTINUE FOR 3 DAYS. 06/25/18 07:00 Gram Stain - Final Sputum - Expectorated Sputum Culture - Preliminary NORMAL RESPIRATORY JOANNA cxr --essentially same. Physical Examination Constitutional: Yes: alert and awake. On high flow oxygen. Dyspnea persists Eyes: Yes: Conjunctiva Clear Neck: Yes: Supple, Other (no jvd) Cardiovascular: Yes: Pulse Irregular Respiratory: Yes: Bilateral rhonchi Gastrointestinal: Yes: Soft/ non tender . bowel sound present Edema: No Neurological: Yes: Alert Psychiatric: Yes: Alert Assessment/Plan overall condition same Still short of breath Continue present care On high flow oxygen Abx Steroids---continue same dose nebulizer treatment Monitor bp Continue other meds patient is DNR and DNI will follow Problem List - Problems (1) Respiratory failure with hypoxia Code(s): J96.91 - RESPIRATORY FAILURE, UNSPECIFIED WITH HYPOXIA (2) Chronic diastolic CHF (congestive heart failure) Code(s): I50.32 - CHRONIC DIASTOLIC (CONGESTIVE) HEART FAILURE (3) HTN (hypertension) Code(s): I10 - ESSENTIAL (PRIMARY) HYPERTENSION Qualifiers: Hypertension type: essential hypertension Qualified Code(s): I10 - Essential (primary) hypertension (4) Hypothyroidism Code(s): E03.9 - HYPOTHYROIDISM, UNSPECIFIED Qualifiers: Hypothyroidism type: unspecified Qualified Code(s): E03.9 - Hypothyroidism , unspecified (5) Paroxysmal A-fib Code(s): I48.0 - PAROXYSMAL ATRIAL FIBRILLATION
--- NOTE | 2018-06-27 12:14 | PN ---
Teaching Attending Note Name of Resident: Kathleen Martinez ATTENDING PHYSICIAN STATEMENT I saw and evaluated the patient. I reviewed the resident's note and discussed the case with the resident. I agree with the resident's findings and plan as documented. SUBJECTIVE: Pt seen and examined in the ICU. Remains on HFOT 50L/min, 40% FiO2. States breathing worse today. +cough with white sputum. OBJECTIVE: Vital Signs Period Temp Pulse Resp BP Sys/De Santiago Pulse Ox Last 24 Hr 98 F-98.9 F 73-100 22-32 124-144/60-97 93-98 Intake & Output 06/24/18 06/25/18 06/26/18 06/27/18 23:59 23:59 23:59 23:59 Intake Total 990 810 600 100 Output Total 152 940 7637 400 Balance 690 510 -650 -300 Weight 78.727 kg 81.374 kg 78.925 kg 78.97 kg Gen: tachypneic at rest Heart :tachycardic, irregular Lung: bibasilar rales, rhonchi Abd: soft, nontender Ext: no edema CBC, BMP 06/27/18 05:30 06/27/18 05:30 Active Medications Acetaminophen (Tylenol -) 650 mg PO Q6H PRN PRN Reason: PAIN LEVEL 1-5 Albuterol Sulfate (Ventolin 0.083% Nebulizer Soln -) 1 amp NEB Q6H PRN PRN Reason: SHORT OF BREATH/WHEEZING Albuterol/Ipratropium (Duoneb -) 1 amp NEB RQID [facility] Last Admin: 06/27/18 12:02 Dose: Not Given Apixaban (Eliquis -) 2.5 mg PO BID [facility] Last Admin: 06/27/18 09:11 Dose: 2.5 mg Atorvastatin Calcium (Lipitor -) 10 mg PO [facility] Last Admin: 06/26/18 21:57 Dose: 10 mg Budesonide/Formoterol Fumarate (Symbicort 80/4.5mcg -) 2 puff IH BID [facility] Last Admin: 06/27/18 09:11 Dose: 2 puff Chlorhexidine Gluconate (Hibiclens For Decolonization -) 1 applic TP [facility] Last Admin: 06/26/18 21:57 Dose: 1 applic Vancomycin HCl 1,250 mg/ (Dextrose) 250 mls @ 250 mls/2 hr IVPB Q24H [facility]; Protocol Last Admin: 06/26/18 12:33 Dose: 250 mls/2 hr Cefepime HCl 2 gm/ Dextrose 100 mls @ 100 mls/hr IVPB BID [facility]; Protocol Last Admin: 06/27/18 09:11 Dose: 100 mls/hr Levothyroxine Sodium (Synthroid -) 75 mcg PO DAILY@0700 [facility] Last Admin: 06/27/18 06:48 Dose: 75 mcg Methylprednisolone Sodium Succinate (Solu-Medrol -) 40 mg IVPUSH Q8H-IV [facility] Last Admin: 06/27/18 09:11 Dose: 40 mg Metoprolol Tartrate (Lopressor Injection -) 5 mg IVPUSH Q4H PRN PRN Reason: HYPERTENSION Last Admin: 06/25/18 13:41 Dose: 5 mg Multivitamins/Minerals/Vitamin C (Tab-A-Vit -) 1 tab PO DAILY [facility] Last Admin: 06/27/18 09:11 Dose: 1 tab Mupirocin (Bactroban Ointment (For Decolonization) -) 1 applic NS BID [facility] Stop: 06/29/18 21:59 Last Admin: 06/27/18 09:11 Dose: 1 applic Pantoprazole Sodium (Protonix Iv) 40 mg IVPUSH DAILY [facility] Last Admin: 06/27/18 09:11 Dose: 40 mg ASSESSMENT AND PLAN: Acute on Chronic Hypoxic Respiratory Failure Pneumonia Severe Sepsis Acute Kidney Injury Acute COPD Exacerbation Acute on Chronic Diastolic Heart Failure Atrial Flutter with RVR HTN Hyperlipidemia Hypothyroidism - continue antibiotics - continue medrol at same dose - inhaled bronchodilators standing and PRN - continue high flow O2, taper FiO2 to keep SpO2>90% - rate control - continue anticoagulation - monitor urine output, creatinine - continue ICU monitoring critical care time spent in reviewing chart, evaluating patient and formulating plan 35 min
--- NOTE | 2018-06-27 13:19 | PN ---
Physical Exam: SUBJECTIVE: Patient is a 82 y/o male with a history of COPD, HF, afib, CKD, HLD, HTN, and hypothyroidism who is admitted for COPD exacerbation 2/2 to pneumonia. Patient had no acute events overnight. Patient on high flow overnight. OBJECTIVE: Vital Signs Temperature 98.7 F 06/27/18 10:00 Pulse Rate 90 06/27/18 10:00 Respiratory Rate 26 H 06/27/18 10:00 Blood Pressure 136/82 06/27/18 10:00 O2 Sat by Pulse Oximetry (%) 96 06/27/18 09:54 GENERAL: The patient is awake, alert, and fully oriented, in no acute distress. HEAD: Normal with no signs of trauma. EYES: PERRL, extraocular movements intact LUNGS: Breath sounds equal, lungs clear to ausculatation, accessory muscle use HEART: Regular rate and rhythm ABDOMEN: Soft, nontender, nondistended, normoactive bowel sounds EXTREMITIES: 2+ pulses, warm, well-perfused, no edema. PSYCH: Normal mood, normal affect. SKIN: Warm, dry, normal turgor, no rashes or lesions noted CBC, BMP 06/27/18 05:30 06/27/18 05:30 ABG Results ABG pH 7.44 (7.35-7.45) 06/26/18 19:21 ABG pCO2 at Pt Temp 33.6 mmHg (35-45) L 06/26/18 19:21 ABG pO2 at Pt Temp 67.6 mmHg (68-100) L 06/26/18 19:21 ABG HCO3 22.5 meq/L (22-26) 06/26/18 19:21 ABG O2 Sat (Measured) 92.9 % (90-98.9) 06/26/18 19:21 ABG O2 Content 10.3 % vol (15-22) L 06/26/18 19:21 ABG Base Excess -0.7 meq/l (-2-2) 06/26/18 19:21 Active Medications Acetaminophen (Tylenol -) 650 mg PO Q6H PRN PRN Reason: PAIN LEVEL 1-5 Albuterol Sulfate (Ventolin 0.083% Nebulizer Soln -) 1 amp NEB Q6H PRN PRN Reason: SHORT OF BREATH/WHEEZING Albuterol/Ipratropium (Duoneb -) 1 amp NEB RQID [facility] Last Admin: 06/27/18 12:02 Dose: Not Given Apixaban (Eliquis -) 2.5 mg PO BID [facility] Last Admin: 06/27/18 09:11 Dose: 2.5 mg Atorvastatin Calcium (Lipitor -) 10 mg PO HS [facility] Last Admin: 06/26/18 21:57 Dose: 10 mg Budesonide/Formoterol Fumarate (Symbicort 80/4.5mcg -) 2 puff IH BID [facility] Last Admin: 06/27/18 09:11 Dose: 2 puff Chlorhexidine Gluconate (Hibiclens For Decolonization -) 1 applic TP HS [facility] Last Admin: 06/26/18 21:57 Dose: 1 applic Vancomycin HCl 1,250 mg/ (Dextrose) 250 mls @ 250 mls/2 hr IVPB Q24H [facility]; Protocol Last Admin: 06/26/18 12:33 Dose: 250 mls/2 hr Cefepime HCl 2 gm/ Dextrose 100 mls @ 100 mls/hr IVPB BID [facility]; Protocol Last Admin: 06/27/18 09:11 Dose: 100 mls/hr Levothyroxine Sodium (Synthroid -) 75 mcg PO DAILY@0700 [facility] Last Admin: 06/27/18 06:48 Dose: 75 mcg Methylprednisolone Sodium Succinate (Solu-Medrol -) 40 mg IVPUSH Q8H-IV [facility] Last Admin: 06/27/18 09:11 Dose: 40 mg Metoprolol Tartrate (Lopressor Injection -) 5 mg IVPUSH Q4H PRN PRN Reason: HYPERTENSION Last Admin: 06/25/18 13:41 Dose: 5 mg Multivitamins/Minerals/Vitamin C (Tab-A-Vit -) 1 tab PO DAILY [facility] Last Admin: 06/27/18 09:11 Dose: 1 tab Mupirocin (Bactroban Ointment (For Decolonization) -) 1 applic NS BID [facility] Stop: 06/29/18 21:59 Last Admin: 06/27/18 09:11 Dose: 1 applic Pantoprazole Sodium (Protonix Iv) 40 mg IVPUSH DAILY [facility] Last Admin: 06/27/18 09:11 Dose: 40 mg ASSESSMENT/PLAN: Patient is a 82 y/o male with a history of COPD, HF, afib, CKD, HLD, HTN, and hypothyroidism who is admitted for COPD exacerbation 2/2 to pneumonia. Pulmonary COPD exacerbation 2/2 to pneumonia - CXR: congestive changes and right infiltrate - albuterol 1 amp q6h - budesonide - methylprednisolone 40 mg IV push q8h - high flow oxygen 50 L 35%, keep O2 saturation >90% Cardiology afib with 2/2 tachycardia - metoprolol 5mg q4h iv push prn HR > 110, given once so far - Elliquis 2.5 mg po bid - atorvastatin 10 mg po qhs - Echo: LV normal, mild LV hypertrophy, mild aortic stenosis, moderate tricuspid regurgitation, RA moderately dilated GI GI ppx - pantoprazole 40 mg IV push daily Infectious Disease Pneumonia - Vancomycin 1.25 mg ( day 3) - Cefepime 2 gm ( day 3) - BC pending - sputum cx pending - nasal MRSA pending, if negative can D/C Vanc - f/u Dr. [place] Endocrine hypothyroidism - Levothyroxine 75 mcg FEN - regular diet Dispo: f/u respiratory status DNR/DNI Visit type - Emergency Visit Emergency Visit: No - New Patient This patient is new to me today: No - Critical Care Critical Care patient: Yes Total Critical Care Time (in minutes): 35 Critical Care Statement: The care of this patient involved high complexity decision making to prevent further life threatening deterioration of the patient 's condition and/or to evaluate & treat vital organ system(s) failure or risk of failure.
[2018-06-27] MEDS: VANCOMYCIN 1,250 MG in DEXTROSE 5%-WATER - 250 ML IVPB SCH (13:28)
[2018-06-27] MEDS: CHLORHEXIDINE GLUCONATE 4% CLEANSER FOR DECOLONIZATION TP SCH (21:27)
[2018-06-27] MEDS: ATORVASTATIN CA 10 MG TABLET (FP) PO SCH (21:27)
[2018-06-28] MEDS: methylPREDNISolone NA SUCC 40 MG/1 ML VIAL IVPUSH SCH ×3 (01:47→21:04)
[2018-06-28] MEDS: LEVOTHYROXINE NA 75 MCG TABLET (FP) PO SCH (06:11)
[2018-06-28 06:28] LABS: HEMOGLOBIN 9.9 GM/dL (11.7-16.9); MCH 25.7 pg (25.7-33.7); MCHC 31.9 g/dl (32.0-35.9); MEAN CELL VOLUME 80.5 fl (80-96); MEAN PLT VOLUME 6.9 fl (7.5-11.1); PLATELET COUNT 575 K/MM3 (134-434); RBC 3.85 M/mm3 (4.00-5.60); RDW 18.8 % (11.9-15.9); WHITE BLOOD COUNT 14.2 K/mm3 (4.0-10.0)
[2018-06-28 06:52] LABS: CHLORIDE 104 mmol/L (98-107); POTASSIUM 3.8 mmol/L (3.5-5.1); SODIUM 142 mmol/L (136-145)
[2018-06-28 07:00] LABS: ALBUMIN 2.1 g/dl (3.4-5.0); ALK PHOS 73 U/L (45-117); ANION GAP 8 MMOL/L (8-16); BILIRUBIN,TOTAL 0.3 mg/dL (0.2-1.0); BLOOD UREA NITROGEN 49 mg/dL (7-18); CALCIUM 7.7 mg/dL (8.5-10.1); CO2 30 mmol/L (21-32); CREATININE 1.5 mg/dL (0.7-1.3); GLUCOSE,RANDOM 141 mg/dL (74-106); MAGNESIUM 2.5 mg/dL (1.8-2.4); PHOSPHOROUS 3.1 mg/dL (2.5-4.9); SGOT/AST 34 U/L (15-37); SGPT/ALT 46 U/L (12-78); TOT PROT 5.9 g/dl (6.4-8.2)
[2018-06-28] MEDS: ALBUTEROL SO4 2.5/IPRATROPIUM 0.5 INH SOL 3 ML VIAL.NEB. NEB SCH ×4 (07:30→20:41)
[2018-06-28] MEDS ORDERED: PT OWN MED DRAWER 7, Y5N ONE (08:19)
[2018-06-28] MEDS ORDERED: hydrALAZINE HCL 20 MG/ML VIAL IVPUSH ONE (08:45)
[2018-06-28] MEDS: APIXABAN 2.5 MG TABLET PO SCH ×2 (09:53→21:03)
[2018-06-28] MEDS: NIFEdipine E.R. 90 MG TABLET (FP) PO SCH (09:53)
[2018-06-28] MEDS: CEFEPIME 2 GM in DEXTROSE 5%-WATER 100 ML IVPB SCH ×2 (09:53→21:04)
[2018-06-28] MEDS: MUPIROCIN 2% TOPICAL OINTMENT FOR DECOLONIZATION NS SCH ×2 (09:53→21:15)
[2018-06-28] MEDS: MULTIVITAMINS (DAILY MVI) TABLET (FP) PO SCH (09:54)
[2018-06-28] MEDS: BUDESONIDE/FORMETEROL FUMARATE 80/4.5 mcg INHALER IH SCH ×2 (09:54→21:06)
[2018-06-28] MEDS: PANTOPRAZOLE 40 MG TABLET (FP) PO SCH (09:54)
--- NOTE | 2018-06-28 10:15 | PN ---
Progress Note (short form) - Note Progress Note: patient seen and examined in ICU. Patient reports subjectively slight improvement Cough with whitish expectorant Remains on high flow oxygen No fever Blood pressure high today--- requiring IV hydralazine He started on blood pressure medications Vital Signs Temp 97.9 F 06/28/18 10:00 Pulse 67 06/28/18 10:00 Resp 26 H 06/28/18 10:00 BP 151/92 06/28/18 10:00 Pulse Ox 97 06/28/18 08:21 Intake & Output 06/27/18 06/27/18 06/28/18 11:59 23:59 11:59 Intake Total 100 520 300 Output Total 400 1000 900 Balance -300 -480 -600 Weight 174 lb 1.6 oz 174 lb 9 oz Intake: IVPB 100 250 200 Oral 270 100 Output: Urine 400 1000 900 Void 400 1000 900 Other: Voiding Method Urinal Urinal Urinal Bowel Movement Yes Yes # Bowel Movements 1 1 Weight Measurement Method Built in [facility] Active Medications Acetaminophen (Tylenol -) 650 mg PO Q6H PRN PRN Reason: PAIN LEVEL 1-5 Albuterol Sulfate (Ventolin 0.083% Nebulizer Soln -) 1 amp NEB Q6H PRN PRN Reason: SHORT OF BREATH/WHEEZING Albuterol/Ipratropium (Duoneb -) 1 amp NEB RQID [facility] Last Admin: 06/28/18 07:30 Dose: 1 amp Apixaban (Eliquis -) 2.5 mg PO BID [facility] Last Admin: 06/28/18 09:53 Dose: 2.5 mg Atorvastatin Calcium (Lipitor -) 10 mg PO [facility] Last Admin: 06/27/18 21:27 Dose: 10 mg Budesonide/Formoterol Fumarate (Symbicort 80/4.5mcg -) 2 puff IH BID [facility] Last Admin: 06/28/18 09:54 Dose: 2 puff Chlorhexidine Gluconate (Hibiclens For Decolonization -) 1 applic TP [facility] Last Admin: 06/27/18 21:27 Dose: 1 applic Vancomycin HCl 1,250 mg/ (Dextrose) 250 mls @ 250 mls/2 hr IVPB Q24H [facility]; Protocol Last Admin: 06/27/18 13:28 Dose: 250 mls/2 hr Cefepime HCl 2 gm/ Dextrose 100 mls @ 100 mls/hr IVPB BID [facility]; Protocol Last Admin: 06/28/18 09:53 Dose: 100 mls/hr Levothyroxine Sodium (Synthroid -) 75 mcg PO DAILY@0700 [facility] Last Admin: 06/28/18 06:11 Dose: 75 mcg Methylprednisolone Sodium Succinate (Solu-Medrol -) 40 mg IVPUSH Q8H-IV [facility] Last Admin: 06/28/18 09:53 Dose: 40 mg Metoprolol Tartrate (Lopressor Injection -) 5 mg IVPUSH Q4H PRN PRN Reason: HYPERTENSION Last Admin: 06/25/18 13:41 Dose: 5 mg Multivitamins/Minerals/Vitamin C (Tab-A-Vit -) 1 tab PO DAILY [facility] Last Admin: 06/28/18 09:54 Dose: 1 tab Mupirocin (Bactroban Ointment (For Decolonization) -) 1 applic NS BID [facility] Stop: 06/29/18 21:59 Last Admin: 06/28/18 09:53 Dose: 1 applic Nifedipine (Procardia Xl -) 90 mg PO DAILY [facility] Last Admin: 06/28/18 09:53 Dose: 90 mg Pantoprazole Sodium (Protonix -) 40 mg PO DAILY [facility] Last Admin: 06/28/18 09:54 Dose: 40 mg CBC, BMP 06/28/18 05:30 06/28/18 05:30 Microbiology 06/24/18 21:15 Blood Culture - Preliminary Blood - Peripheral Venous NO GROWTH OBTAINED AFTER 72 HOURS, INCUBATION TO CONTINUE FOR 2 DAYS. 06/24/18 21:10 Blood Culture - Preliminary Blood - Peripheral Venous NO GROWTH OBTAINED AFTER 72 HOURS, INCUBATION TO CONTINUE FOR 2 DAYS. 06/25/18 07:00 Gram Stain - Final Sputum - Expectorated Sputum Culture - Final NORMAL RESPIRATORY JOANNA 06/24/18 11:30 Blood Culture - Preliminary Blood - Peripheral Venous NO GROWTH OBTAINED AFTER 72 HOURS, INCUBATION TO CONTINUE FOR 2 DAYS. 06/24/18 11:30 Blood Culture - Preliminary Blood - Peripheral Venous NO GROWTH OBTAINED AFTER 72 HOURS, INCUBATION TO CONTINUE FOR 2 DAYS. Physical Examination Constitutional: Yes: alert and awake. On high flow oxygen. looks better. Eyes: Yes: Conjunctiva Clear Neck: Yes: Supple, Other (no jvd) Cardiovascular: Yes: Pulse Irregular Respiratory: Yes: Bilateral rhonchi Gastrointestinal: Yes: Soft/ non tender . bowel sound present Edema: No Neurological: Yes: Alert Psychiatric: Yes: Alert Assessment/Plan overall condition --- slight improvement Still short of breath Continue present care On high flow oxygen Abx Steroids---taper slowl nebulizer treatment Monitor bp Continue other meds patient is DNR and DNI discussed with nursing staff also Critical care team--- will discuss will follow Problem List - Problems (1) Respiratory failure with hypoxia Code(s): J96.91 - RESPIRATORY FAILURE, UNSPECIFIED WITH HYPOXIA (2) Chronic diastolic CHF (congestive heart failure) Code(s): I50.32 - CHRONIC DIASTOLIC (CONGESTIVE) HEART FAILURE (3) HTN (hypertension) Code(s): I10 - ESSENTIAL (PRIMARY) HYPERTENSION Qualifiers: Hypertension type: essential hypertension Qualified Code(s): I10 - Essential (primary) hypertension (4) Hypothyroidism Code(s): E03.9 - HYPOTHYROIDISM, UNSPECIFIED Qualifiers: Hypothyroidism type: unspecified Qualified Code(s): E03.9 - Hypothyroidism , unspecified (5) Paroxysmal A-fib Code(s): I48.0 - PAROXYSMAL ATRIAL FIBRILLATION
[2018-06-28] MEDS ORDERED: FUROSEMIDE 40 MG/4 ML INJECTABLE VIAL IVPUSH ONE (12:00)
--- NOTE | 2018-06-28 12:01 | PN ---
Teaching Attending Note Name of Resident: Kathleen Martinez ATTENDING PHYSICIAN STATEMENT I saw and evaluated the patient. I reviewed the resident's note and discussed the case with the resident. I agree with the resident's findings and plan as documented. SUBJECTIVE: Pt seen and examined in the ICU. Remains on HFOT. States breathing slightly improved from yesterday. No fevers recorded. +cough with white sputum. OBJECTIVE: Vital Signs Period Temp Pulse Resp BP Sys/[place] Pulse Ox Last 24 Hr 97.8 F-98.9 F 66-87 20-28 139-183/89-112 96-100 Intake & Output 06/25/18 06/26/18 06/27/18 06/28/18 23:59 23:59 23:59 23:59 Intake Total 810 600 620 300 Output Total 300 1250 1400 900 Balance 510 650 780 600 Weight 81.374 kg 78.925 kg 78.97 kg 79.18 kg Gen: tachypneic at rest on HFOT Heart: RRR Lung: scattered rhonchi Abd: soft, nontender Ext: no edema CBC, BMP 06/28/18 05:30 06/28/18 05:30 Active Medications Acetaminophen (Tylenol -) 650 mg PO Q6H PRN PRN Reason: PAIN LEVEL 1-5 Albuterol Sulfate (Ventolin 0.083% Nebulizer Soln -) 1 amp NEB Q6H PRN PRN Reason: SHORT OF BREATH/WHEEZING Albuterol/Ipratropium (Duoneb -) 1 amp NEB RQID [facility] Last Admin: 06/28/18 12:01 Dose: 1 amp Apixaban (Eliquis -) 2.5 mg PO BID [facility] Last Admin: 06/28/18 09:53 Dose: 2.5 mg Atorvastatin Calcium (Lipitor -) 10 mg PO HS [facility] Last Admin: 06/27/18 21:27 Dose: 10 mg Budesonide/Formoterol Fumarate (Symbicort 80/4.5mcg -) 2 puff IH BID [facility] Last Admin: 06/28/18 09:54 Dose: 2 puff Chlorhexidine Gluconate (Hibiclens For Decolonization -) 1 applic TP [facility] Last Admin: 06/27/18 21:27 Dose: 1 applic Vancomycin HCl 1,250 mg/ (Dextrose) 250 mls @ 250 mls/2 hr IVPB Q24H [facility]; Protocol Last Admin: 06/27/18 13:28 Dose: 250 mls/2 hr Cefepime HCl 2 gm/ Dextrose 100 mls @ 100 mls/hr IVPB BID [facility]; Protocol Last Admin: 06/28/18 09:53 Dose: 100 mls/hr Levothyroxine Sodium (Synthroid -) 75 mcg PO DAILY@0700 [facility] Last Admin: 06/28/18 06:11 Dose: 75 mcg Methylprednisolone Sodium Succinate (Solu-Medrol -) 40 mg IVPUSH BID [facility] Metoprolol Tartrate (Lopressor Injection -) 5 mg IVPUSH Q4H PRN PRN Reason: HYPERTENSION Last Admin: 06/25/18 13:41 Dose: 5 mg Multivitamins/Minerals/Vitamin C (Tab-A-Vit -) 1 tab PO DAILY [facility] Last Admin: 06/28/18 09:54 Dose: 1 tab Mupirocin (Bactroban Ointment (For Decolonization) -) 1 applic NS BID [facility] Stop: 06/29/18 21:59 Last Admin: 06/28/18 09:53 Dose: 1 applic Nifedipine (Procardia Xl -) 90 mg PO DAILY [facility] Last Admin: 06/28/18 09:53 Dose: 90 mg Pantoprazole Sodium (Protonix -) 40 mg PO DAILY [facility] Last Admin: 06/28/18 09:54 Dose: 40 mg ASSESSMENT AND PLAN: Acute on Chronic Hypoxic Respiratory Failure Pneumonia Severe Sepsis Acute Kidney Injury Acute COPD Exacerbation Acute on Chronic Diastolic Heart Failure Pulmonary HTN Atrial Flutter with RVR HTN Hyperlipidemia Hypothyroidism - continue antibiotics - can decrease medrol to q12h - inhaled bronchodilators standing and PRN - continue high flow O2, taper FiO2 to keep SpO2>90% - rate control - continue anticoagulation - IV lasix today - monitor urine output, creatinine - continue ICU monitoring critical care time spent in reviewing chart, evaluating patient and formulating plan 35 min
--- NOTE | 2018-06-28 12:40 | PN ---
Physical Exam: SUBJECTIVE: Patient is a 82 y/o male with a history of COPD, HF, afib, CKD, HLD, HTN, and hypothyroidism who is admitted for COPD exacerbation 2/2 to pneumonia. Patient hypertensive overnight. His home BP medications were restarted and he was given one time dose of hydralazine 10 mg. Patient tolerating high flow oxygen. OBJECTIVE: Vital Signs Temperature 98.0 F 06/28/18 12:00 Pulse Rate 67 06/28/18 12:00 Respiratory Rate 21 06/28/18 12:00 Blood Pressure 152/98 06/28/18 12:00 O2 Sat by Pulse Oximetry (%) 97 06/28/18 12:00 GENERAL: The patient is awake, alert, and fully oriented, in no acute distress. Patient is tachypneic HEAD: Normal with no signs of trauma. EYES: PERRL, extraocular movements intact LUNGS: Breath sounds equal, lungs clear to ausculatation, accessory muscle use HEART: Regular rate and rhythm ABDOMEN: Soft, nontender, nondistended, normoactive bowel sounds EXTREMITIES: 2+ pulses, warm, well-perfused, no edema. PSYCH: Normal mood, normal affect. SKIN: Warm, dry, normal turgor, no rashes or lesions noted CBCD WBC 14.2 K/mm3 (4.0-10.0) H 06/28/18 05:30 RBC 3.85 M/mm3 (4.00-5.60) L 06/28/18 05:30 Hgb 9.9 GM/dL (11.7-16.9) L 06/28/18 05:30 Hct 31.0 % (35.4-49) L 06/28/18 05:30 MCV 80.5 fl (80-96) 06/28/18 05:30 MCHC 31.9 g/dl (32.0-35.9) L 06/28/18 05:30 RDW 18.8 % (11.9-15.9) H 06/28/18 05:30 Plt Count 575 K/MM3 (134-434) H 06/28/18 05:30 MPV 6.9 fl (7.5-11.1) L 06/28/18 05:30 CMP Sodium 142 mmol/L (136-145) 06/28/18 05:30 Potassium 3.8 mmol/L (3.5-5.1) 06/28/18 05:30 Chloride 104 mmol/L (98-107) 06/28/18 05:30 Carbon Dioxide 30 mmol/L (21-32) 06/28/18 05:30 Anion Gap 8 MMOL/L (8-16) 06/28/18 05:30 BUN 49 mg/dL (7-18) H 06/28/18 05:30 Creatinine 1.5 mg/dL (0.7-1.3) H 06/28/18 05:30 Creat Clearance w eGFR 44.59 (>60) 06/28/18 05:30 Calcium 7.7 mg/dL (8.5-10.1) L 06/28/18 05:30 Total Bilirubin 0.3 mg/dL (0.2-1.0) 06/28/18 05:30 AST 34 U/L (15-37) D 06/28/18 05:30 ALT 46 U/L (12-78) D 06/28/18 05:30 Alkaline Phosphatase 73 U/L (45-117) 06/28/18 05:30 Total Protein 5.9 g/dl (6.4-8.2) L 06/28/18 05:30 Albumin 2.1 g/dl (3.4-5.0) L 06/28/18 05:30 Active Medications Acetaminophen (Tylenol -) 650 mg PO Q6H PRN PRN Reason: PAIN LEVEL 1-5 Albuterol Sulfate (Ventolin 0.083% Nebulizer Soln -) 1 amp NEB Q6H PRN PRN Reason: SHORT OF BREATH/WHEEZING Albuterol/Ipratropium (Duoneb -) 1 amp NEB RQID [facility] Last Admin: 06/28/18 12:01 Dose: 1 amp Apixaban (Eliquis -) 2.5 mg PO BID [facility] Last Admin: 06/28/18 09:53 Dose: 2.5 mg Atorvastatin Calcium (Lipitor -) 10 mg PO HS [facility] Last Admin: 06/27/18 21:27 Dose: 10 mg Budesonide/Formoterol Fumarate (Symbicort 80/4.5mcg -) 2 puff IH BID [facility] Last Admin: 06/28/18 09:54 Dose: 2 puff Chlorhexidine Gluconate (Hibiclens For Decolonization -) 1 applic TP [facility] Last Admin: 06/27/18 21:27 Dose: 1 applic Vancomycin HCl 1,250 mg/ (Dextrose) 250 mls @ 250 mls/2 hr IVPB Q24H [facility]; Protocol Last Admin: 06/27/18 13:28 Dose: 250 mls/2 hr Cefepime HCl 2 gm/ Dextrose 100 mls @ 100 mls/hr IVPB BID [facility]; Protocol Last Admin: 06/28/18 09:53 Dose: 100 mls/hr Levothyroxine Sodium (Synthroid -) 75 mcg PO DAILY@0700 [facility] Last Admin: 06/28/18 06:11 Dose: 75 mcg Methylprednisolone Sodium Succinate (Solu-Medrol -) 40 mg IVPUSH BID [facility] Metoprolol Tartrate (Lopressor Injection -) 5 mg IVPUSH Q4H PRN PRN Reason: HYPERTENSION Last Admin: 06/25/18 13:41 Dose: 5 mg Multivitamins/Minerals/Vitamin C (Tab-A-Vit -) 1 tab PO DAILY [facility] Last Admin: 06/28/18 09:54 Dose: 1 tab Mupirocin (Bactroban Ointment (For Decolonization) -) 1 applic NS BID [facility] Stop: 06/29/18 21:59 Last Admin: 06/28/18 09:53 Dose: 1 applic Nifedipine (Procardia Xl -) 90 mg PO DAILY [facility] Last Admin: 06/28/18 09:53 Dose: 90 mg Pantoprazole Sodium (Protonix -) 40 mg PO DAILY [facility] Last Admin: 06/28/18 09:54 Dose: 40 mg ASSESSMENT/PLAN: Patient is a 82 y/o male with a history of COPD, HF, afib, CKD, HLD, HTN, and hypothyroidism who is admitted for COPD exacerbation 2/2 to pneumonia. Pulmonary COPD exacerbation 2/2 to pneumonia - CXR: congestive changes and right infiltrate - albuterol 1 amp q6h - budesonide - methylprednisolone 40 mg IV BID - high flow oxygen 50 L 35%, keep O2 saturation >90% - 40 mg IV lasix once time dose, CXR congestion appears to have worsen Cardiology afib with 2/2 tachycardia - metoprolol 5mg q4h iv push prn HR > 110, given once so far - Elliquis 2.5 mg po bid - atorvastatin 10 mg po qhs - Echo: LV normal, mild LV hypertrophy, mild aortic stenosis, moderate tricuspid regurgitation, RA moderately dilated HTN - restarted nifedipine 90 mg daily - hydralazine 10 mg IV push one time dose given - monitor BP and slowly reintroduce home hydralazine GI GI ppx - pantoprazole 40 mg IV push daily Infectious Disease Pneumonia - Vancomycin 1.25 mg D/C MRSA nasal negative - Cefepime 2 gm ( day 4) - BC pending - sputum cx pending - f/u Dr. [place] Endocrine hypothyroidism - Levothyroxine 75 mcg FEN - regular diet Dispo: f/u respiratory status DNR/DNI Visit type - Emergency Visit Emergency Visit: No - New Patient This patient is new to me today: No - Critical Care Critical Care patient: Yes Total Critical Care Time (in minutes): 40 Critical Care Statement: The care of this patient involved high complexity decision making to prevent further life threatening deterioration of the patient 's condition and/or to evaluate & treat vital organ system(s) failure or risk of failure.
[2018-06-28] MEDS: ATORVASTATIN CA 10 MG TABLET (FP) PO SCH (21:04)
[2018-06-28] MEDS: CHLORHEXIDINE GLUCONATE 4% CLEANSER FOR DECOLONIZATION TP SCH (21:16)
[2018-06-29] MEDS: METOPROLOL TARTRATE 5 MG/5 ML VIAL IVPUSH PRN (02:00)
[2018-06-29] MEDS: LEVOTHYROXINE NA 75 MCG TABLET (FP) PO SCH (06:03)
[2018-06-29 06:12] LABS: HEMATOCRIT 32.9 % (35.4-49); HEMOGLOBIN 10.9 GM/dL (11.7-16.9); MCH 26.3 pg (25.7-33.7); MCHC 33.1 g/dl (32.0-35.9); MEAN CELL VOLUME 79.6 fl (80-96); MEAN PLT VOLUME 6.9 fl (7.5-11.1); PLATELET COUNT 631 K/MM3 (134-434); RBC 4.14 M/mm3 (4.00-5.60); RDW 18.7 % (11.9-15.9); WHITE BLOOD COUNT 17.9 K/mm3 (4.0-10.0)
[2018-06-29 06:20] LABS: ALBUMIN 2.1 g/dl (3.4-5.0); ANION GAP 9 MMOL/L (8-16); BLOOD UREA NITROGEN 58 mg/dL (7-18); CALCIUM 7.8 mg/dL (8.5-10.1); CHLORIDE 101 mmol/L (98-107); CO2 32 mmol/L (21-32); CREATININE 1.6 mg/dL (0.7-1.3); GLUCOSE,RANDOM 154 mg/dL (74-106); MAGNESIUM 2.3 mg/dL (1.8-2.4); PHOSPHOROUS 2.8 mg/dL (2.5-4.9); SGOT/AST 28 U/L (15-37); SGPT/ALT 51 U/L (12-78); SODIUM 142 mmol/L (136-145)
[2018-06-29 06:22] LABS: ALK PHOS 71 U/L (45-117); BILIRUBIN,TOTAL 0.3 mg/dL (0.2-1.0); TOT PROT 5.9 g/dl (6.4-8.2)
[2018-06-29] MEDS: ALBUTEROL SO4 2.5/IPRATROPIUM 0.5 INH SOL 3 ML VIAL.NEB. NEB SCH ×2 (08:00→12:11)
[2018-06-29] MEDS ORDERED: hydrALAZINE HCL 25 MG TABLET (FP) PO ONE (08:13)
[2018-06-29] MEDS: APIXABAN 2.5 MG TABLET PO SCH ×2 (09:01→21:31)
[2018-06-29] MEDS: PANTOPRAZOLE 40 MG TABLET (FP) PO SCH (09:01)
[2018-06-29] MEDS: BUDESONIDE/FORMETEROL FUMARATE 80/4.5 mcg INHALER IH SCH ×2 (09:02→21:33)
[2018-06-29] MEDS: MULTIVITAMINS (DAILY MVI) TABLET (FP) PO SCH (09:02)
[2018-06-29] MEDS: CEFEPIME 2 GM in DEXTROSE 5%-WATER 100 ML IVPB SCH ×2 (09:02→21:31)
--- NOTE | 2018-06-29 09:02 | PN ---
Physical Exam: SUBJECTIVE: Patient is a 82 y/o male with a history of COPD, HF, afib, CKD, HLD, HTN, and hypothyroidism who is admitted for COPD exacerbation 2/2 to pneumonia. Patient had no acute events overnight and remained on high flow oxygen overnight. OBJECTIVE: Vital Signs Temperature 98.5 F 06/29/18 06:00 Pulse Rate 85 06/29/18 06:00 Respiratory Rate 25 H 06/29/18 06:00 Blood Pressure 147/98 06/29/18 06:00 O2 Sat by Pulse Oximetry (%) 96 06/29/18 06:14 GENERAL: The patient is awake, alert, and fully oriented, in no acute distress. Patient is tachypneic HEAD: Normal with no signs of trauma. EYES: PERRL, extraocular movements intact LUNGS: Breath sounds equal, lungs clear to ausculatation, accessory muscle use HEART: Regular rate and rhythm ABDOMEN: Soft, nontender, nondistended, normoactive bowel sounds EXTREMITIES: 2+ pulses, warm, well-perfused, no edema. PSYCH: Normal mood, normal affect. SKIN: Warm, dry, normal turgor, no rashes or lesions note CBCD WBC 17.9 K/mm3 (4.0-10.0) H 06/29/18 05:30 RBC 4.14 M/mm3 (4.00-5.60) 06/29/18 05:30 Hgb 10.9 GM/dL (11.7-16.9) L 06/29/18 05:30 Hct 32.9 % (35.4-49) L 06/29/18 05:30 MCV 79.6 fl (80-96) L 06/29/18 05:30 MCHC 33.1 g/dl (32.0-35.9) 06/29/18 05:30 RDW 18.7 % (11.9-15.9) H 06/29/18 05:30 Plt Count 631 K/MM3 (134-434) H 06/29/18 05:30 MPV 6.9 fl (7.5-11.1) L 06/29/18 05:30 CMP Sodium 142 mmol/L (136-145) 06/29/18 05:30 Potassium 4.0 mmol/L (3.5-5.1) 06/29/18 05:30 Chloride 101 mmol/L (98-107) 06/29/18 05:30 Carbon Dioxide 32 mmol/L (21-32) 06/29/18 05:30 Anion Gap 9 MMOL/L (8-16) 06/29/18 05:30 BUN 58 mg/dL (7-18) H 06/29/18 05:30 Creatinine 1.6 mg/dL (0.7-1.3) H 06/29/18 05:30 Creat Clearance w eGFR 41.39 (>60) 06/29/18 05:30 Calcium 7.8 mg/dL (8.5-10.1) L 06/29/18 05:30 Total Bilirubin 0.3 mg/dL (0.2-1.0) 06/29/18 05:30 AST 28 U/L (15-37) 06/29/18 05:30 ALT 51 U/L (12-78) 06/29/18 05:30 Alkaline Phosphatase 71 U/L (45-117) 06/29/18 05:30 Total Protein 5.9 g/dl (6.4-8.2) L 06/29/18 05:30 Albumin 2.1 g/dl (3.4-5.0) L 06/29/18 05:30 Active Medications Acetaminophen (Tylenol -) 650 mg PO Q6H PRN PRN Reason: PAIN LEVEL 1-5 Albuterol Sulfate (Ventolin 0.083% Nebulizer Soln -) 1 amp NEB Q6H PRN PRN Reason: SHORT OF BREATH/WHEEZING Albuterol/Ipratropium (Duoneb -) 1 amp NEB RQID [facility] Last Admin: 06/29/18 08:00 Dose: 1 amp Apixaban (Eliquis -) 2.5 mg PO BID [facility] Last Admin: 06/28/18 21:03 Dose: 2.5 mg Atorvastatin Calcium (Lipitor -) 10 mg PO [facility] Last Admin: 06/28/18 21:04 Dose: 10 mg Budesonide/Formoterol Fumarate (Symbicort 80/4.5mcg -) 2 puff IH BID [facility] Last Admin: 06/28/18 21:06 Dose: 2 puff Chlorhexidine Gluconate (Hibiclens For Decolonization -) 1 applic TP [facility] Last Admin: 06/28/18 21:16 Dose: 1 applic Cefepime HCl 2 gm/ Dextrose 100 mls @ 100 mls/hr IVPB BID [facility]; Protocol Last Admin: 06/28/18 21:04 Dose: 100 mls/hr Levothyroxine Sodium (Synthroid -) 75 mcg PO DAILY@0700 [facility] Last Admin: 06/29/18 06:03 Dose: 75 mcg Methylprednisolone Sodium Succinate (Solu-Medrol -) 40 mg IVPUSH BID [facility] Last Admin: 06/28/18 21:04 Dose: 40 mg Metoprolol Tartrate (Lopressor Injection -) 5 mg IVPUSH Q4H PRN PRN Reason: HYPERTENSION Last Admin: 06/29/18 02:00 Dose: 5 mg Multivitamins/Minerals/Vitamin C (Tab-A-Vit -) 1 tab PO DAILY [facility] Last Admin: 06/28/18 09:54 Dose: 1 tab Mupirocin (Bactroban Ointment (For Decolonization) -) 1 applic NS BID [facility] Stop: 06/29/18 21:59 Last Admin: 06/28/18 21:15 Dose: 1 applic Nifedipine (Procardia Xl -) 90 mg PO DAILY [facility] Last Admin: 06/28/18 09:53 Dose: 90 mg Pantoprazole Sodium (Protonix -) 40 mg PO DAILY [facility] Last Admin: 06/28/18 09:54 Dose: 40 mg ASSESSMENT/PLAN: Patient is a 82 y/o male with a history of COPD, HF, afib, CKD, HLD, HTN, and hypothyroidism who is admitted for COPD exacerbation 2/2 to pneumonia. Pulmonary COPD exacerbation 2/2 to pneumonia - CXR: congestive changes and right infiltrate - albuterol 1 amp q6h - budesonide - methylprednisolone 40 mg IV daily - off high glow, on NC maintain saturation > 90 - 40 mg IV lasix once time dose, CXR about the same as yesterday Cardiology afib with 2/2 tachycardia - metoprolol 5mg q4h iv push prn HR > 110, given twice so far - Elliquis 2.5 mg po bid - atorvastatin 10 mg po qhs - Echo: LV normal, mild LV hypertrophy, mild aortic stenosis, moderate tricuspid regurgitation, RA moderately dilated HTN - restarted nifedipine 90 mg daily - hydralazine 25 mg TID - monitor BP and slowly reintroduce home hydralazine GI GI ppx - pantoprazole 40 mg IV push daily Infectious Disease Pneumonia - Cefepime 2 gm ( day 5) - BC negative - sputum cx negative - f/u Dr. [place] Endocrine hypothyroidism - Levothyroxine 75 mcg Neuro Anxiety - Xanax .25 mg once FEN - regular diet Dispo: f/u respiratory status DNR/DNI Visit type - Emergency Visit Emergency Visit: No - New Patient This patient is new to me today: No - Critical Care Critical Care patient: Yes Total Critical Care Time (in minutes): 42 Critical Care Statement: The care of this patient involved high complexity decision making to prevent further life threatening deterioration of the patient 's condition and/or to evaluate & treat vital organ system(s) failure or risk of failure.
[2018-06-29] MEDS: methylPREDNISolone NA SUCC 40 MG/1 ML VIAL IVPUSH SCH (09:03)
[2018-06-29] MEDS: MUPIROCIN 2% TOPICAL OINTMENT FOR DECOLONIZATION NS SCH (09:04)
[2018-06-29] MEDS: NIFEdipine E.R. 90 MG TABLET (FP) PO SCH (09:04)
--- NOTE | 2018-06-29 09:23 | PN ---
Teaching Attending Note Name of Resident: Kathleen Martinez ATTENDING PHYSICIAN STATEMENT I saw and evaluated the patient. I reviewed the resident's note and discussed the case with the resident. I agree with the resident's findings and plan as documented. SUBJECTIVE: Pt seen and examined in the ICU. Remains on HFOT with 50L/min, 25% FiO2 saturating low 90s. OBJECTIVE: Vital Signs Period Temp Pulse Resp BP Sys/[place] Pulse Ox Last 24 Hr 97.6 F-98.5 F 67-99 21-28 139-155/71-100 92-97 Intake & Output 06/26/18 06/27/18 06/28/18 06/29/18 23:59 23:59 23:59 23:59 Intake Total 600 620 440 250 Output Total 1250 1400 1200 400 Balance -650 -780 -760 -150 Weight 78.925 kg 78.97 kg 79.18 kg 76.067 kg Gen: less tachypneic Heart: RRR Lung: bibasilar rales Abd: soft, nontender Ext: no edema CBC, BMP 06/29/18 05:30 06/29/18 05:30 Active Medications Acetaminophen (Tylenol -) 650 mg PO Q6H PRN PRN Reason: PAIN LEVEL 1-5 Albuterol Sulfate (Ventolin 0.083% Nebulizer Soln -) 1 amp NEB Q6H PRN PRN Reason: SHORT OF BREATH/WHEEZING Albuterol/Ipratropium (Duoneb -) 1 amp NEB RQID [facility] Last Admin: 06/29/18 08:00 Dose: 1 amp Apixaban (Eliquis -) 2.5 mg PO BID [facility] Last Admin: 06/29/18 09:01 Dose: 2.5 mg Atorvastatin Calcium (Lipitor -) 10 mg PO HS [facility] Last Admin: 06/28/18 21:04 Dose: 10 mg Budesonide/Formoterol Fumarate (Symbicort 80/4.5mcg -) 2 puff IH BID [facility] Last Admin: 06/29/18 09:02 Dose: 2 puff Chlorhexidine Gluconate (Hibiclens For Decolonization -) 1 applic TP [facility] Last Admin: 06/28/18 21:16 Dose: 1 applic Cefepime HCl 2 gm/ Dextrose 100 mls @ 100 mls/hr IVPB BID [facility]; Protocol Last Admin: 06/29/18 09:02 Dose: 100 mls/hr Levothyroxine Sodium (Synthroid -) 75 mcg PO DAILY@0700 [facility] Last Admin: 06/29/18 06:03 Dose: 75 mcg Methylprednisolone Sodium Succinate (Solu-Medrol -) 40 mg IVPUSH BID [facility] Last Admin: 06/29/18 09:03 Dose: 40 mg Metoprolol Tartrate (Lopressor Injection -) 5 mg IVPUSH Q4H PRN PRN Reason: HYPERTENSION Last Admin: 06/29/18 02:00 Dose: 5 mg Multivitamins/Minerals/Vitamin C (Tab-A-Vit -) 1 tab PO DAILY [facility] Last Admin: 06/29/18 09:02 Dose: 1 tab Mupirocin (Bactroban Ointment (For Decolonization) -) 1 applic NS BID [facility] Stop: 06/29/18 21:59 Last Admin: 06/29/18 09:04 Dose: 1 applic Nifedipine (Procardia Xl -) 90 mg PO DAILY [facility] Last Admin: 06/29/18 09:04 Dose: 90 mg Pantoprazole Sodium (Protonix -) 40 mg PO DAILY [facility] Last Admin: 06/29/18 09:01 Dose: 40 mg ASSESSMENT AND PLAN: Acute on Chronic Hypoxic Respiratory Failure Pneumonia Severe Sepsis Acute Kidney Injury Acute COPD Exacerbation Acute on Chronic Diastolic Heart Failure Pulmonary HTN Atrial Flutter with RVR HTN Hyperlipidemia Hypothyroidism - continue antibiotics - can decrease medrol to daily - inhaled bronchodilators standing and PRN - continue high flow O2, taper flow, FiO2 to keep SpO2>90% - rate control - continue anticoagulation - IV lasix today - monitor urine output, creatinine - continue ICU monitoring critical care time spent in reviewing chart, evaluating patient and formulating plan 35 min
--- NOTE | 2018-06-29 09:26 | PN ---
Progress Note (short form) - Note Progress Note: Patient seen and examined in ICU Discussed with ICU team/resident Patient feels slight improvement Still short of breath Denies chest pain remains on high flow oxygen Vital Signs Temp 98.5 F 06/29/18 06:00 Pulse 85 06/29/18 06:00 Resp 25 H 06/29/18 06:00 BP 147/98 06/29/18 06:00 Pulse Ox 96 06/29/18 06:14 Intake & Output 06/28/18 06/28/18 06/29/18 11:59 23:59 11:59 Intake Total 300 140 250 Output Total 900 300 400 Balance -600 -160 -150 Weight 174 lb 9 oz 167 lb 11.2 oz Intake: IVPB 200 100 Oral 100 140 150 Output: Urine 900 300 400 Void 900 300 400 Other: Voiding Method Urinal External Catheter # Unmeasured Voids Void 1 1 Bowel Movement Yes Yes # Bowel Movements 1 1 Weight Measurement Method Built in [facility] Active Medications Acetaminophen (Tylenol -) 650 mg PO Q6H PRN PRN Reason: PAIN LEVEL 1-5 Albuterol Sulfate (Ventolin 0.083% Nebulizer Soln -) 1 amp NEB Q6H PRN PRN Reason: SHORT OF BREATH/WHEEZING Albuterol/Ipratropium (Duoneb -) 1 amp NEB RQID [facility] Last Admin: 06/29/18 08:00 Dose: 1 amp Apixaban (Eliquis -) 2.5 mg PO BID [facility] Last Admin: 06/29/18 09:01 Dose: 2.5 mg Atorvastatin Calcium (Lipitor -) 10 mg PO [facility] Last Admin: 06/28/18 21:04 Dose: 10 mg Budesonide/Formoterol Fumarate (Symbicort 80/4.5mcg -) 2 puff IH BID [facility] Last Admin: 06/29/18 09:02 Dose: 2 puff Chlorhexidine Gluconate (Hibiclens For Decolonization -) 1 applic TP [facility] Last Admin: 06/28/18 21:16 Dose: 1 applic Furosemide (Lasix Injection -) 40 mg IVPUSH DAILY [facility] Hydralazine HCl (Apresoline -) 25 mg PO BID [facility] Cefepime HCl 2 gm/ Dextrose 100 mls @ 100 mls/hr IVPB BID [facility]; Protocol Last Admin: 06/29/18 09:02 Dose: 100 mls/hr Levothyroxine Sodium (Synthroid -) 75 mcg PO DAILY@0700 [facility] Last Admin: 06/29/18 06:03 Dose: 75 mcg Methylprednisolone Sodium Succinate (Solu-Medrol -) 40 mg IVPUSH BID [facility] Last Admin: 06/29/18 09:03 Dose: 40 mg Metoprolol Tartrate (Lopressor Injection -) 5 mg IVPUSH Q4H PRN PRN Reason: HYPERTENSION Last Admin: 06/29/18 02:00 Dose: 5 mg Multivitamins/Minerals/Vitamin C (Tab-A-Vit -) 1 tab PO DAILY [facility] Last Admin: 06/29/18 09:02 Dose: 1 tab Mupirocin (Bactroban Ointment (For Decolonization) -) 1 applic NS BID [facility] Stop: 06/29/18 21:59 Last Admin: 06/29/18 09:04 Dose: 1 applic Nifedipine (Procardia Xl -) 90 mg PO DAILY [facility] Last Admin: 06/29/18 09:04 Dose: 90 mg Pantoprazole Sodium (Protonix -) 40 mg PO DAILY [facility] Last Admin: 06/29/18 09:01 Dose: 40 mg CBC, BMP 06/29/18 05:30 06/29/18 05:30 Microbiology 06/24/18 21:15 Blood Culture - Preliminary Blood - Peripheral Venous NO GROWTH OBTAINED AFTER 96 HOURS, INCUBATION TO CONTINUE FOR 1 DAYS. 06/24/18 21:10 Blood Culture - Preliminary Blood - Peripheral Venous NO GROWTH OBTAINED AFTER 96 HOURS, INCUBATION TO CONTINUE FOR 1 DAYS. 06/24/18 11:30 Blood Culture - Preliminary Blood - Peripheral Venous NO GROWTH OBTAINED AFTER 96 HOURS, INCUBATION TO CONTINUE FOR 1 DAYS. 06/24/18 11:30 Blood Culture - Preliminary Blood - Peripheral Venous NO GROWTH OBTAINED AFTER 96 HOURS, INCUBATION TO CONTINUE FOR 1 DAYS. 06/26/18 14:00 MRSA Screen - Final Nares - Mrsa Screen - Left NO MRSA ISOLATED 06/26/18 14:00 MRSA Screen - Final Nares - Mrsa Screen - Right NO MRSA ISOLATED cxr-- no change. Physical Examination Constitutional: Yes: alert and awake. On high flow oxygen. Comfortable Eyes: Yes: Conjunctiva Clear Neck: Yes: Supple, Other (no jvd) Cardiovascular: Yes: Pulse Irregular Respiratory: Yes: Bilateral rales at bases Gastrointestinal: Yes: Soft/ non tender . bowel sound present Edema: No Neurological: Yes: Alert Psychiatric: Yes: Alert Assessment/Plan overall condition --- slight improvement Still short of breath Continue present care On high flow oxygen Abx Steroids---taper slowly nebulizer treatment Monitor bp--adjust BP medications start on hydralazine Give Lasix today Continue other meds patient is DNR and DNI discussed with nursing staff also critical care time--20 minutes will follow Problem List - Problems (1) Respiratory failure with hypoxia Code(s): J96.91 - RESPIRATORY FAILURE, UNSPECIFIED WITH HYPOXIA (2) Chronic diastolic CHF (congestive heart failure) Code(s): I50.32 - CHRONIC DIASTOLIC (CONGESTIVE) HEART FAILURE (3) HTN (hypertension) Code(s): I10 - ESSENTIAL (PRIMARY) HYPERTENSION Qualifiers: Hypertension type: essential hypertension Qualified Code(s): I10 - Essential (primary) hypertension (4) Hypothyroidism Code(s): E03.9 - HYPOTHYROIDISM, UNSPECIFIED Qualifiers: Hypothyroidism type: unspecified Qualified Code(s): E03.9 - Hypothyroidism , unspecified (5) Paroxysmal A-fib Code(s): I48.0 - PAROXYSMAL ATRIAL FIBRILLATION
[2018-06-29] MEDS ORDERED: hydrALAZINE HCL 25 MG TABLET (FP) PO SCH (10:00)
[2018-06-29] MEDS: FUROSEMIDE 40 MG/4 ML INJECTABLE VIAL IVPUSH SCH (10:32)
[2018-06-29] MEDS ORDERED: ALPRAZolam 0.25 MG TABLET PO ONE (11:30)
[2018-06-29] MEDS: hydrALAZINE HCL 25 MG TABLET (FP) PO SCH ×2 (13:10→21:31)
[2018-06-29] MEDS ORDERED: PT OWN MED DRAWER 7, Y5N ONE (21:23)
[2018-06-29] MEDS: ATORVASTATIN CA 10 MG TABLET (FP) PO SCH (21:31)
[2018-06-29] MEDS: CHLORHEXIDINE GLUCONATE 4% CLEANSER FOR DECOLONIZATION TP SCH (21:31)
[2018-06-30 06:03] LABS: HEMATOCRIT 33.6 % (35.4-49); HEMOGLOBIN 10.9 GM/dL (11.7-16.9); MCHC 32.5 g/dl (32.0-35.9); MEAN CELL VOLUME 79.9 fl (80-96); MEAN PLT VOLUME 6.5 fl (7.5-11.1); PLATELET COUNT 640 K/MM3 (134-434); RBC 4.21 M/mm3 (4.00-5.60); RDW 19.1 % (11.9-15.9); WHITE BLOOD COUNT 21.3 K/mm3 (4.0-10.0)
[2018-06-30] MEDS: LEVOTHYROXINE NA 75 MCG TABLET (FP) PO SCH (06:07)
[2018-06-30] MEDS: hydrALAZINE HCL 25 MG TABLET (FP) PO SCH (06:08)
[2018-06-30 06:46] LABS: CALCIUM 7.3 mg/dL (8.5-10.1); CHLORIDE 101 mmol/L (98-107); POTASSIUM 3.3 mmol/L (3.5-5.1); SODIUM 142 mmol/L (136-145)
[2018-06-30 06:52] LABS: ALK PHOS 62 U/L (45-117); ANION GAP 7 MMOL/L (8-16); BILIRUBIN,TOTAL 0.2 mg/dL (0.2-1.0); BLOOD UREA NITROGEN 65 mg/dL (7-18); CO2 34 mmol/L (21-32); CREATININE 1.7 mg/dL (0.7-1.3); GLUCOSE,RANDOM 108 mg/dL (74-106); MAGNESIUM 2.2 mg/dL (1.8-2.4); PHOSPHOROUS 2.4 mg/dL (2.5-4.9); SGOT/AST 18 U/L (15-37); SGPT/ALT 42 U/L (12-78); TOT PROT 5.6 g/dl (6.4-8.2)
[2018-06-30] MEDS ORDERED: NAPH,MB-DB/K PH,MBDB POWDER PACKET PO ONE (07:19)
[2018-06-30] MEDS ORDERED: POTASSIUM CHLORIDE TABS 20 MEQ TABLET.ER (FP) PO ONE ×2 (07:30→09:00)
[2018-06-30] MEDS: NIFEdipine E.R. 90 MG TABLET (FP) PO SCH (09:04)
[2018-06-30] MEDS: PANTOPRAZOLE 40 MG TABLET (FP) PO SCH (09:04)
[2018-06-30] MEDS: MULTIVITAMINS (DAILY MVI) TABLET (FP) PO SCH (09:04)
[2018-06-30] MEDS: FUROSEMIDE 40 MG/4 ML INJECTABLE VIAL IVPUSH SCH (09:04)
[2018-06-30] MEDS: APIXABAN 2.5 MG TABLET PO SCH ×2 (09:04→21:08)
[2018-06-30] MEDS: BUDESONIDE/FORMETEROL FUMARATE 80/4.5 mcg INHALER IH SCH ×2 (09:05→21:08)
[2018-06-30] MEDS: methylPREDNISolone NA SUCC 40 MG/1 ML VIAL IVPUSH SCH (09:05)
[2018-06-30] MEDS ORDERED: PT OWN MED DRAWER 7, Y5N ONE ×2 (09:09→21:01)
[2018-06-30] MEDS: CEFEPIME 2 GM in DEXTROSE 5%-WATER 100 ML IVPB SCH ×2 (09:10→21:08)
--- NOTE | 2018-06-30 09:17 | PN ---
Physical Exam: SUBJECTIVE: Patient is a 82 y/o male with a history of COPD, HF, afib, CKD, HLD , HTN, and hypothyroidism who is admitted for COPD exacerbation 2/2 to pneumonia. Patient had no acute events overnight, patient is on 3 L NC and tolerating it well. OBJECTIVE: Vital Signs Temperature 98.4 F 06/30/18 06:00 Pulse Rate 96 H 06/30/18 06:00 Respiratory Rate 18 06/30/18 06:00 Blood Pressure 148/83 06/30/18 06:00 O2 Sat by Pulse Oximetry (%) 97 06/29/18 23:55 GENERAL: The patient is awake, alert, and fully oriented, in no acute distress. HEAD: Normal with no signs of trauma. EYES: PERRL, extraocular movements intact LUNGS: Breath sounds equal, bibasilar crackles at bases HEART: Regular rate and rhythm ABDOMEN: Soft, nontender, nondistended, normoactive bowel sounds EXTREMITIES: 2+ pulses, warm, well-perfused, no edema. PSYCH: Normal mood, normal affect. SKIN: Warm, dry, normal turgor, no rashes or lesions note CBCD WBC 21.3 K/mm3 (4.0-10.0) H 06/30/18 05:30 RBC 4.21 M/mm3 (4.00-5.60) 06/30/18 05:30 Hgb 10.9 GM/dL (11.7-16.9) L 06/30/18 05:30 Hct 33.6 % (35.4-49) L 06/30/18 05:30 MCV 79.9 fl (80-96) L 06/30/18 05:30 MCHC 32.5 g/dl (32.0-35.9) 06/30/18 05:30 RDW 19.1 % (11.9-15.9) H 06/30/18 05:30 Plt Count 640 K/MM3 (134-434) H 06/30/18 05:30 MPV 6.5 fl (7.5-11.1) L 06/30/18 05:30 CMP Sodium 142 mmol/L (136-145) 06/30/18 05:30 Potassium 3.3 mmol/L (3.5-5.1) L 06/30/18 05:30 Chloride 101 mmol/L (98-107) 06/30/18 05:30 Carbon Dioxide 34 mmol/L (21-32) H 06/30/18 05:30 Anion Gap 7 MMOL/L (8-16) L 06/30/18 05:30 BUN 65 mg/dL (7-18) H 06/30/18 05:30 Creatinine 1.7 mg/dL (0.7-1.3) H 06/30/18 05:30 Creat Clearance w eGFR 38.59 (>60) 06/30/18 05:30 Calcium 7.3 mg/dL (8.5-10.1) L 06/30/18 05:30 Total Bilirubin 0.2 mg/dL (0.2-1.0) 06/30/18 05:30 AST 18 U/L (15-37) D 06/30/18 05:30 ALT 42 U/L (12-78) 06/30/18 05:30 Alkaline Phosphatase 62 U/L (45-117) 06/30/18 05:30 Total Protein 5.6 g/dl (6.4-8.2) L 06/30/18 05:30 Albumin 2.0 g/dl (3.4-5.0) L 06/30/18 05:30 Active Medications Acetaminophen (Tylenol -) 650 mg PO Q6H PRN PRN Reason: PAIN LEVEL 1-5 Albuterol Sulfate (Ventolin 0.083% Nebulizer Soln -) 1 amp NEB Q6H PRN PRN Reason: SHORT OF BREATH/WHEEZING Apixaban (Eliquis -) 2.5 mg PO BID [facility] Last Admin: 06/30/18 09:04 Dose: 2.5 mg Atorvastatin Calcium (Lipitor -) 10 mg PO HS [facility] Last Admin: 06/29/18 21:31 Dose: 10 mg Budesonide/Formoterol Fumarate (Symbicort 80/4.5mcg -) 2 puff IH BID [facility] Last Admin: 06/30/18 09:05 Dose: 2 puff Chlorhexidine Gluconate (Hibiclens For Decolonization -) 1 applic TP HS [facility] Last Admin: 06/29/18 21:31 Dose: 1 applic Furosemide (Lasix Injection -) 40 mg IVPUSH DAILY [facility] Last Admin: 09/01/18 09:04 Dose: 40 mg Hydralazine HCl (Apresoline -) 50 mg PO TID [facility] Cefepime HCl 2 gm/ Dextrose 100 mls @ 100 mls/hr IVPB BID [facility]; Protocol Last Admin: 06/30/18 09:10 Dose: 100 mls/hr Levothyroxine Sodium (Synthroid -) 75 mcg PO DAILY@0700 [facility] Last Admin: 06/30/18 06:07 Dose: 75 mcg Methylprednisolone Sodium Succinate (Solu-Medrol -) 40 mg IVPUSH DAILY [facility] Last Admin: 06/30/18 09:05 Dose: 40 mg Metoprolol Tartrate (Lopressor Injection -) 5 mg IVPUSH Q4H PRN PRN Reason: HYPERTENSION Last Admin: 06/29/18 02:00 Dose: 5 mg Multivitamins/Minerals/Vitamin C (Tab-A-Vit -) 1 tab PO DAILY [facility] Last Admin: 06/30/18 09:04 Dose: 1 tab Nifedipine (Procardia Xl -) 90 mg PO DAILY [facility] Last Admin: 06/30/18 09:04 Dose: 90 mg Pantoprazole Sodium (Protonix -) 40 mg PO DAILY [facility] Last Admin: 06/30/18 09:04 Dose: 40 mg ASSESSMENT/PLAN: Patient is a 82 y/o male with a history of COPD, HF, afib, CKD, HLD, HTN, and hypothyroidism who is admitted for COPD exacerbation 2/2 to pneumonia. Pulmonary COPD exacerbation 2/2 to pneumonia - CXR: congestive changes and right infiltrate - albuterol 1 amp q6h - budesonide - methylprednisolone 40 mg IV daily - off high flow, on NC 3 L maintain saturation > 90 Cardiology afib with 2/2 tachycardia - metoprolol 5mg q4h iv push prn HR > 110, given twice so far - Elliquis 2.5 mg po bid - atorvastatin 10 mg po qhs - Echo: LV normal, mild LV hypertrophy, mild aortic stenosis, moderate tricuspid regurgitation, RA moderately dilated HTN - restarted nifedipine 90 mg daily - hydralazine 50 mg TID - monitor BP and slowly reintroduce home hydralazine GI GI ppx - pantoprazole 40 mg IV push daily Infectious Disease Pneumonia - Cefepime 2 gm ( day 6) - BC negative - sputum cx negative - f/u Dr. [place] Endocrine hypothyroidism - Levothyroxine 75 mcg Neuro Anxiety - Xanax .25 mg once FEN - regular diet Dispo: f/u respiratory status, possibly transfer tomorrow DNR/DNI Visit type - Emergency Visit Emergency Visit: No - New Patient This patient is new to me today: No - Critical Care Critical Care patient: Yes Total Critical Care Time (in minutes): 36 Critical Care Statement: The care of this patient involved high complexity decision making to prevent further life threatening deterioration of the patient 's condition and/or to evaluate & treat vital organ system(s) failure or risk of failure.
--- NOTE | 2018-06-30 09:54 | PN ---
Progress Note (short form) - Note Progress Note: slowly improving no distress better Vital Signs Temp 98.4 F 06/30/18 06:00 Pulse 96 H 06/30/18 06:00 Resp 18 06/30/18 06:00 BP 148/83 06/30/18 06:00 Pulse Ox 98 06/30/18 09:33 Intake & Output 06/29/18 06/29/18 06/30/18 11:59 23:59 11:59 Intake Total 250 710 150 Output Total 400 700 300 Balance -150 10 -150 Weight 167 lb 11.2 oz 166 lb 3.2 oz Intake: IVPB 100 100 100 Oral 150 610 50 Output: Urine 400 700 300 Void 400 700 300 Other: Voiding Method External Catheter Urinal Urinal # Unmeasured Voids Void 1 2 Bowel Movement Yes No No # Bowel Movements 1 4 Weight Measurement Method Built in [facility] Built in [facility] Active Medications Acetaminophen (Tylenol -) 650 mg PO Q6H PRN PRN Reason: PAIN LEVEL 1-5 Albuterol Sulfate (Ventolin 0.083% Nebulizer Soln -) 1 amp NEB Q6H PRN PRN Reason: SHORT OF BREATH/WHEEZING Apixaban (Eliquis -) 2.5 mg PO BID [facility] Last Admin: 06/30/18 09:04 Dose: 2.5 mg Atorvastatin Calcium (Lipitor -) 10 mg PO [facility] Last Admin: 06/29/18 21:31 Dose: 10 mg Budesonide/Formoterol Fumarate (Symbicort 80/4.5mcg -) 2 puff IH BID [facility] Last Admin: 06/30/18 09:05 Dose: 2 puff Chlorhexidine Gluconate (Hibiclens For Decolonization -) 1 applic TP HS [facility] Last Admin: 06/29/18 21:31 Dose: 1 applic Furosemide (Lasix Injection -) 40 mg IVPUSH DAILY [facility] Last Admin: 06/30/18 09:04 Dose: 40 mg Hydralazine HCl (Apresoline -) 50 mg PO TID [facility] Cefepime HCl 2 gm/ Dextrose 100 mls @ 100 mls/hr IVPB BID [facility]; Protocol Last Admin: 06/30/18 09:10 Dose: 100 mls/hr Levothyroxine Sodium (Synthroid -) 75 mcg PO DAILY@0700 [facility] Last Admin: 06/30/18 06:07 Dose: 75 mcg Methylprednisolone Sodium Succinate (Solu-Medrol -) 40 mg IVPUSH DAILY [facility] Last Admin: 06/30/18 09:05 Dose: 40 mg Metoprolol Tartrate (Lopressor Injection -) 5 mg IVPUSH Q4H PRN PRN Reason: HYPERTENSION Last Admin: 06/29/18 02:00 Dose: 5 mg Multivitamins/Minerals/Vitamin C (Tab-A-Vit -) 1 tab PO DAILY [facility] Last Admin: 06/30/18 09:04 Dose: 1 tab Nifedipine (Procardia Xl -) 90 mg PO DAILY [facility] Last Admin: 06/30/18 09:04 Dose: 90 mg Pantoprazole Sodium (Protonix -) 40 mg PO DAILY [facility] Last Admin: 06/30/18 09:04 Dose: 40 mg CBC, BMP 06/30/18 05:30 06/30/18 05:30 Microbiology 06/24/18 21:15 Blood Culture - Final Blood - Peripheral Venous NO GROWTH AFTER 5 DAYS INCUBATION 06/24/18 21:10 Blood Culture - Final Blood - Peripheral Venous NO GROWTH AFTER 5 DAYS INCUBATION 06/24/18 11:30 Blood Culture - Final Blood - Peripheral Venous NO GROWTH AFTER 5 DAYS INCUBATION 06/24/18 11:30 Blood Culture - Final Blood - Peripheral Venous NO GROWTH AFTER 5 DAYS INCUBATION Physical Examination Constitutional: Yes: alert and awake. comfortable. Eyes: Yes: Conjunctiva Clear Neck: Yes: Supple, Other (no jvd) Cardiovascular: Yes: Pulse Irregular Respiratory: Yes: Bilateral rales at bases Gastrointestinal: Yes: Soft/ non tender . bowel sound present Edema: No Neurological: Yes: Alert Psychiatric: Yes: Alert Assessment/Plan overall condition ---better Continue present care Abx Steroids---taper slowly nebulizer treatment Monitor bp-- Continue other meds discussed with nursing staff also will follow Problem List - Problems (1) Respiratory failure with hypoxia Code(s): J96.91 - RESPIRATORY FAILURE, UNSPECIFIED WITH HYPOXIA (2) Chronic diastolic CHF (congestive heart failure) Code(s): I50.32 - CHRONIC DIASTOLIC (CONGESTIVE) HEART FAILURE (3) HTN (hypertension) Code(s): I10 - ESSENTIAL (PRIMARY) HYPERTENSION Qualifiers: Hypertension type: essential hypertension Qualified Code(s): I10 - Essential (primary) hypertension (4) Hypothyroidism Code(s): E03.9 - HYPOTHYROIDISM, UNSPECIFIED Qualifiers: Hypothyroidism type: unspecified Qualified Code(s): E03.9 - Hypothyroidism , unspecified (5) Paroxysmal A-fib Code(s): I48.0 - PAROXYSMAL ATRIAL FIBRILLATION
[2018-06-30] MEDS ORDERED: POTASSIUM CHLORIDE TABS 20 MEQ TABLET.ER (FP) PO SCH (10:00)
--- NOTE | 2018-06-30 10:04 | PN ---
Teaching Attending Note Name of Resident: Kathleen Martinez ATTENDING PHYSICIAN STATEMENT I saw and evaluated the patient. I reviewed the resident's note and discussed the case with the resident. I agree with the resident's findings and plan as documented. SUBJECTIVE: Pt seen and examined in the ICU. Off high flow on nasal cannula 3L/min. OBJECTIVE: Vital Signs Period Temp Pulse Resp BP Sys/[place] Pulse Ox Last 24 Hr 98.2 F-98.6 F 86-106 18-35 100-154/54-93 93-98 Intake & Output 06/27/18 06/28/18 06/29/18 06/30/18 23:59 23:59 23:59 23:59 Intake Total 620 440 960 150 Output Total 1400 1200 1100 300 Balance -780 -760 -140 -150 Weight 78.97 kg 79.18 kg 76.067 kg 75.387 kg Gen: tachypneic at rest Heart: irregular Lung: bibasilar rales Abd: soft, nontender Ext: no edema CBC, BMP 06/30/18 05:30 06/30/18 05:30 Active Medications Acetaminophen (Tylenol -) 650 mg PO Q6H PRN PRN Reason: PAIN LEVEL 1-5 Albuterol Sulfate (Ventolin 0.083% Nebulizer Soln -) 1 amp NEB Q6H PRN PRN Reason: SHORT OF BREATH/WHEEZING Apixaban (Eliquis -) 2.5 mg PO BID [facility] Last Admin: 06/30/18 09:04 Dose: 2.5 mg Atorvastatin Calcium (Lipitor -) 10 mg PO HS [facility] Last Admin: 06/29/18 21:31 Dose: 10 mg Budesonide/Formoterol Fumarate (Symbicort 80/4.5mcg -) 2 puff IH BID [facility] Last Admin: 06/30/18 09:05 Dose: 2 puff Chlorhexidine Gluconate (Hibiclens For Decolonization -) 1 applic TP HS [facility] Last Admin: 06/29/18 21:31 Dose: 1 applic Furosemide (Lasix Injection -) 40 mg IVPUSH DAILY [facility] Last Admin: 06/30/18 09:04 Dose: 40 mg Hydralazine HCl (Apresoline -) 50 mg PO TID [facility] Cefepime HCl 2 gm/ Dextrose 100 mls @ 100 mls/hr IVPB BID [facility]; Protocol Last Admin: 06/30/18 09:10 Dose: 100 mls/hr Levothyroxine Sodium (Synthroid -) 75 mcg PO DAILY@0700 [facility] Last Admin: 06/30/18 06:07 Dose: 75 mcg Methylprednisolone Sodium Succinate (Solu-Medrol -) 40 mg IVPUSH DAILY [facility] Last Admin: 06/30/18 09:05 Dose: 40 mg Metoprolol Tartrate (Lopressor Injection -) 5 mg IVPUSH Q4H PRN PRN Reason: HYPERTENSION Last Admin: 06/29/18 02:00 Dose: 5 mg Multivitamins/Minerals/Vitamin C (Tab-A-Vit -) 1 tab PO DAILY [facility] Last Admin: 06/30/18 09:04 Dose: 1 tab Nifedipine (Procardia Xl -) 90 mg PO DAILY [facility] Last Admin: 06/30/18 09:04 Dose: 90 mg Pantoprazole Sodium (Protonix -) 40 mg PO DAILY [facility] Last Admin: 06/30/18 09:04 Dose: 40 mg Potassium Chloride (K-Dur -) 20 meq PO DAILY [facility] ASSESSMENT AND PLAN: Acute on Chronic Hypoxic Respiratory Failure Pneumonia Severe Sepsis Acute Kidney Injury Acute COPD Exacerbation Acute on Chronic Diastolic Heart Failure Pulmonary HTN Atrial Flutter with RVR HTN Hyperlipidemia Hypothyroidism - continue antibiotics - continue daily medrol - inhaled bronchodilators standing and PRN - taper FiO2 to keep SpO2>90% - rate control - continue anticoagulation - hold lasix today - monitor urine output, creatinine - continue ICU monitoring critical care time spent in reviewing chart, evaluating patient and formulating plan 35 min
[2018-06-30] MEDS: hydrALAZINE HCL 50 MG TABLET (FP) PO SCH ×2 (13:04→21:08)
--- NOTE | 2018-06-30 18:41 | PN ---
Progress Note, Physician History of Present Illness: Awake,alert OOB in chair No complaints of chest pain/ dyspnea - Current Medication List Current Medications: Active Medications Acetaminophen (Tylenol -) 650 mg PO Q6H PRN PRN Reason: PAIN LEVEL 1-5 Albuterol Sulfate (Ventolin 0.083% Nebulizer Soln -) 1 amp NEB Q6H PRN PRN Reason: SHORT OF BREATH/WHEEZING Apixaban (Eliquis -) 2.5 mg PO BID [facility] Last Admin: 06/30/18 09:04 Dose: 2.5 mg Atorvastatin Calcium (Lipitor -) 10 mg PO HS [facility] Last Admin: 06/29/18 21:31 Dose: 10 mg Budesonide/Formoterol Fumarate (Symbicort 80/4.5mcg -) 2 puff IH BID [facility] Last Admin: 06/30/18 09:05 Dose: 2 puff Chlorhexidine Gluconate (Hibiclens For Decolonization -) 1 applic TP [facility] Last Admin: 06/29/18 21:31 Dose: 1 applic Hydralazine HCl (Apresoline -) 50 mg PO TID [facility] Last Admin: 06/30/18 13:04 Dose: 50 mg Cefepime HCl 2 gm/ Dextrose 100 mls @ 100 mls/hr IVPB BID [facility]; Protocol Last Admin: 06/30/18 09:10 Dose: 100 mls/hr Levothyroxine Sodium (Synthroid -) 75 mcg PO DAILY@0700 [facility] Last Admin: 06/30/18 06:07 Dose: 75 mcg Methylprednisolone Sodium Succinate (Solu-Medrol -) 40 mg IVPUSH DAILY [facility] Last Admin: 06/30/18 09:05 Dose: 40 mg Metoprolol Tartrate (Lopressor Injection -) 5 mg IVPUSH Q4H PRN PRN Reason: HYPERTENSION Last Admin: 06/29/18 02:00 Dose: 5 mg Multivitamins/Minerals/Vitamin C (Tab-A-Vit -) 1 tab PO DAILY [facility] Last Admin: 06/30/18 09:04 Dose: 1 tab Nifedipine (Procardia Xl -) 90 mg PO DAILY [facility] Last Admin: 06/30/18 09:04 Dose: 90 mg Pantoprazole Sodium (Protonix -) 40 mg PO DAILY [facility] Last Admin: 06/30/18 09:04 Dose: 40 mg - Objective Vital Signs: Vital Signs Temperature 98.9 F 06/30/18 16:00 Pulse Rate 93 H 06/30/18 16:00 Respiratory Rate 25 H 06/30/18 16:00 Blood Pressure 118/72 06/30/18 16:00 O2 Sat by Pulse Oximetry (%) 98 06/30/18 18:30 Constitutional: Yes: No Distress Cardiovascular: Yes: Regular Rate and Rhythm, S1, S2 Respiratory: Yes: CTA Bilaterally Gastrointestinal: Yes: Normal Bowel Sounds, Soft Labs: CBC, BMP 06/30/18 05:30 06/30/18 05:30 INR, PTT INR 2.08 (0.83-1.09) H 06/24/18 11:30 Assessment/Plan RLL pneumonia Respiratory failure / COPD Azotemia PCN allergy Continue cefepime
[2018-06-30] MEDS: ATORVASTATIN CA 10 MG TABLET (FP) PO SCH (21:08)
[2018-06-30] MEDS: CHLORHEXIDINE GLUCONATE 4% CLEANSER FOR DECOLONIZATION TP SCH (21:08)
[2018-07-01 05:34] LABS: BASO % 0.5 % (0-2.0); EOS % 1.4 % (0-4.5); HEMATOCRIT 34.8 % (35.4-49); HEMOGLOBIN 11.3 GM/dL (11.7-16.9); LYMPH % 2.5 % (8-40); MCH 26.1 pg (25.7-33.7); MCHC 32.4 g/dl (32.0-35.9); MEAN CELL VOLUME 80.6 fl (80-96); MEAN PLT VOLUME 6.8 fl (7.5-11.1); MONO % 7.4 % (3.8-10.2); NEUT % 88.2 % (42.8-82.8); PLATELET COUNT 649 K/MM3 (134-434); RBC 4.32 M/mm3 (4.00-5.60); RDW 19.2 % (11.9-15.9); WHITE BLOOD COUNT 25.9 K/mm3 (4.0-10.0)
[2018-07-01] MEDS: ALBUTEROL SO4 0.083% IH SOL 2.5 MG/3 ML VIAL.NEB. NEB PRN (06:00)
[2018-07-01 06:04] LABS: ALBUMIN 2.1 g/dl (3.4-5.0); ALK PHOS 69 U/L (45-117); ANION GAP 7 MMOL/L (8-16); BILIRUBIN,TOTAL 0.3 mg/dL (0.2-1.0); BLOOD UREA NITROGEN 76 mg/dL (7-18); CALCIUM 7.5 mg/dL (8.5-10.1); CHLORIDE 102 mmol/L (98-107); CO2 35 mmol/L (21-32); CREATININE 1.7 mg/dL (0.7-1.3); GLUCOSE,RANDOM 109 mg/dL (74-106); MAGNESIUM 2.4 mg/dL (1.8-2.4); PHOSPHOROUS 2.5 mg/dL (2.5-4.9); POTASSIUM 3.8 mmol/L (3.5-5.1); SGOT/AST 18 U/L (15-37); SGPT/ALT 40 U/L (12-78); SODIUM 144 mmol/L (136-145); TOT PROT 5.9 g/dl (6.4-8.2)
[2018-07-01] MEDS: LEVOTHYROXINE NA 75 MCG TABLET (FP) PO SCH (06:08)
[2018-07-01] MEDS: hydrALAZINE HCL 50 MG TABLET (FP) PO SCH ×3 (06:08→22:36)
[2018-07-01] MEDS ORDERED: PT OWN MED DRAWER 7, Y5N ONE ×2 (09:20→23:20)
[2018-07-01] MEDS: PANTOPRAZOLE 40 MG TABLET (FP) PO SCH (09:25)
[2018-07-01] MEDS: NIFEdipine E.R. 90 MG TABLET (FP) PO SCH (09:25)
[2018-07-01] MEDS: MULTIVITAMINS (DAILY MVI) TABLET (FP) PO SCH (09:25)
[2018-07-01] MEDS: APIXABAN 2.5 MG TABLET PO SCH ×2 (09:25→22:36)
[2018-07-01] MEDS: methylPREDNISolone NA SUCC 40 MG/1 ML VIAL IVPUSH SCH (09:25)
[2018-07-01] MEDS: CEFEPIME 2 GM in DEXTROSE 5%-WATER 100 ML IVPB SCH ×2 (09:25→22:36)
[2018-07-01] MEDS: BUDESONIDE/FORMETEROL FUMARATE 80/4.5 mcg INHALER IH SCH ×2 (09:31→22:36)
[2018-07-01 10:16] LABS: ANISOCYTOSIS 2+; MACROCYTOSIS 0; OVALOCYTE 1+; PLATELET ESTIMATE INCREASED
--- NOTE | 2018-07-01 10:32 | PN ---
Teaching Attending Note Name of Resident: Indiana Durham ATTENDING PHYSICIAN STATEMENT I saw and evaluated the patient. I reviewed the resident's note and discussed the case with the resident. I agree with the resident's findings and plan as documented. SUBJECTIVE: Pt seen and examined in the ICU. Breathing continues to improve. No chest pain. No fevers or chills. OBJECTIVE: Vital Signs Period Temp Pulse Resp BP Sys/[place] Pulse Ox Last 24 Hr 98.2 F-98.9 F 71-117 18-30 102-144/59-96 98-98 Intake & Output 06/28/18 06/29/18 06/30/18 07/01/18 23:59 23:59 23:59 23:59 Intake Total 615 562 5263 100 Output Total 1200 1100 500 500 Balance -760 -140 610 -400 Weight 79.18 kg 76.067 kg 75.387 kg 74.752 kg Gen: less tachypneic Heart: irregular Lung: scattered basilar rales Abd: soft, nontender Ext: no edema CBC, BMP 07/01/18 05:10 07/01/18 05:10 Active Medications Acetaminophen (Tylenol -) 650 mg PO Q6H PRN PRN Reason: PAIN LEVEL 1-5 Albuterol Sulfate (Ventolin 0.083% Nebulizer Soln -) 1 amp NEB Q6H PRN PRN Reason: SHORT OF BREATH/WHEEZING Last Admin: 07/01/18 06:00 Dose: 1 amp Apixaban (Eliquis -) 2.5 mg PO BID [facility] Last Admin: 07/01/18 09:25 Dose: 2.5 mg Atorvastatin Calcium (Lipitor -) 10 mg PO [facility] Last Admin: 06/30/18 21:08 Dose: 10 mg Budesonide/Formoterol Fumarate (Symbicort 80/4.5mcg -) 2 puff IH BID [facility] Last Admin: 07/01/18 09:31 Dose: 2 puff Chlorhexidine Gluconate (Hibiclens For Decolonization -) 1 applic TP [facility] Last Admin: 06/30/18 21:08 Dose: 1 applic Hydralazine HCl (Apresoline -) 50 mg PO TID [facility] Last Admin: 07/01/18 06:08 Dose: 50 mg Cefepime HCl 2 gm/ Dextrose 100 mls @ 100 mls/hr IVPB BID [facility]; Protocol Last Admin: 07/01/18 09:25 Dose: 100 mls/hr Levothyroxine Sodium (Synthroid -) 75 mcg PO DAILY@0700 [facility] Last Admin: 07/01/18 06:08 Dose: 75 mcg Methylprednisolone Sodium Succinate (Solu-Medrol -) 40 mg IVPUSH DAILY [facility] Last Admin: 07/01/18 09:25 Dose: 40 mg Metoprolol Tartrate (Lopressor Injection -) 5 mg IVPUSH Q4H PRN PRN Reason: HYPERTENSION Last Admin: 06/29/18 02:00 Dose: 5 mg Multivitamins/Minerals/Vitamin C (Tab-A-Vit -) 1 tab PO DAILY [facility] Last Admin: 07/01/18 09:25 Dose: 1 tab Nifedipine (Procardia Xl -) 90 mg PO DAILY [facility] Last Admin: 07/01/18 09:25 Dose: 90 mg Pantoprazole Sodium (Protonix -) 40 mg PO DAILY [facility] Last Admin: 07/01/18 09:25 Dose: 40 mg ASSESSMENT AND PLAN: Acute on Chronic Hypoxic Respiratory Failure improving Pneumonia Severe Sepsis improving Acute Kidney Injury Acute COPD Exacerbation Acute on Chronic Diastolic Heart Failure Pulmonary HTN Atrial Flutter with RVR HTN Hyperlipidemia Hypothyroidism - continue antibiotics - d/c medrol - inhaled bronchodilators standing and PRN - taper FiO2 to keep SpO2>90% - rate control - continue anticoagulation - hold lasix today - monitor urine output, creatinine - can monitor on floor critical care time spent in reviewing chart, evaluating patient and formulating plan 35 min
--- NOTE | 2018-07-01 10:47 | PN ---
Physical Exam: SUBJECTIVE: Patient seen and examined. He is feeling better today, states that his breathing improved. No overnight events. OBJECTIVE: Vital Signs Period Temp Pulse Resp BP Sys/De Santiago Pulse Ox Last 24 Hr 98.2 F-98.9 F 71-117 18-30 102-144/59-96 98-98 GENERAL: The patient is awake, alert, and fully oriented, in no acute distress, sitting comfortably in chair. HEAD: Normal with no signs of trauma. EYES: Extraocular movements intact, sclera anicteric. ENT: Oropharynx clear without exudates, moist mucous membranes. NECK: Trachea midline, full range of motion, supple. LUNGS: Breath sounds equal, occasional rhonchi, no wheezes, no crackles, no accessory muscle use. HEART: Regular rate and rhythm, S1, S2 without murmur, rub or gallop. ABDOMEN: Soft, nontender, nondistended, normoactive bowel sounds, no guarding, no rebound. EXTREMITIES: 2+ pulses, no edema. NEUROLOGICAL: non focal, no slurred speech. PSYCH: Normal mood, normal affect. SKIN: Warm, dry, normal turgor, no rashes. Laboratory Results - last 24 hr 07/01/18 07/01/18 07/01/18 05:10 05:10 05:10 WBC 25.9 H RBC 4.32 Hgb 11.3 L Hct 34.8 L MCV 80.6 MCH 26.1 MCHC 32.4 RDW 19.2 H Plt Count 649 H MPV 6.8 L Absolute Neuts (auto) 22.8 H Neutrophils % 88.2 H Lymphocytes % 2.5 L D Monocytes % 7.4 Eosinophils % 1.4 D Basophils % 0.5 D Nucleated RBC % 0 Sodium 144 Potassium 3.8 Chloride 102 Carbon Dioxide 35 H Anion Gap 7 L BUN 76 H Creatinine 1.7 H Creat Clearance w eGFR 38.59 Random Glucose 109 H Calcium 7.5 L Phosphorus 2.5 Magnesium 2.4 Total Bilirubin 0.3 AST 18 ALT 40 Alkaline Phosphatase 69 Total Protein 5.9 L Albumin 2.1 L Random Vancomycin 10.03 Active Medications Generic Name Dose Route Start Last Admin Trade Name Freq PRN Reason Stop Dose Admin Acetaminophen 650 mg 06/24/18 14:46 Tylenol - PO Q6H PRN PAIN LEVEL 1-5 Albuterol Sulfate 1 amp 06/26/18 11:30 07/01/18 06:00 Ventolin 0.083% Nebulizer Soln - NEB 1 amp Q6H PRN Administration SHORT OF BREATH/WHEEZING Apixaban 2.5 mg 06/24/18 22:00 07/01/18 09:25 Eliquis - PO 2.5 mg BID JAGDEEP Administration Atorvastatin Calcium 10 mg 06/25/18 22:00 06/30/18 21:08 Lipitor - PO 10 mg HS JAGDEEP Administration Budesonide/Formoterol Fumarate 2 puff 06/24/18 22:00 07/01/18 09:31 Symbicort 80/4.5mcg - IH 2 puff BID JAGDEEP Administration Chlorhexidine Gluconate 1 applic 06/24/18 22:00 06/30/18 21:08 Hibiclens For Decolonization - TP 1 applic HS JADGEEP Administration Hydralazine HCl 50 mg 06/30/18 14:00 07/01/18 06:08 Apresoline - PO 50 mg TID JAGDEEP Administration Cefepime HCl 2 gm/ Dextrose 100 mls @ 100 mls/hr 06/25/18 10:00 07/01/18 09: 25 IVPB 100 mls/hr BID JAGDEEP Administration Protocol Levothyroxine Sodium 75 mcg 06/25/18 07:00 07/01/18 06:08 Synthroid - PO 75 mcg DAILY@0700 JAGDEEP Administration Methylprednisolone Sodium Succinate 40 mg 06/30/18 10:00 07/01/18 09:25 Solu-Medrol - IVPUSH 40 mg DAILY JAGDEEP Administration Metoprolol Tartrate 5 mg 06/25/18 13:12 06/29/18 02:00 Lopressor Injection - IVPUSH 5 mg Q4H PRN Administration HYPERTENSION Multivitamins/Minerals/Vitamin C 1 tab 06/25/18 10:00 07/01/18 09:25 Tab-A-Vit - PO 1 tab DAILY JAGDEEP Administration Nifedipine 90 mg 06/28/18 10:00 07/01/18 09:25 Procardia Xl - PO 90 mg DAILY JAGDEEP Administration Pantoprazole Sodium 40 mg 06/28/18 10:00 07/01/18 09:25 Protonix - PO 40 mg DAILY JAGDEEP Administration ASSESSMENT/PLAN: Patient is a 82 y/o male with a past medical history of COPD on 2 L of Oxygen at PR, HF, afib, CKD, HLD, HTN, and hypothyroidism who is admitted for COPD exacerbation due to pneumonia. acute hypoxic respiratory failure COPD exacerbation due to pneumonia severe sepsis diastolic HF a.flutter with rapid RVR HTN HF hiatal hernia hypothyroidism hyperlipidemia Plan: - cont albuterol 1 amp q6h - methylprednisolone 40 mg IV daily stopped today -on NC 3 L maintain saturation > 90 -CXR reviewed -no Lasix today -cont home meds: nifedipine 90 mg daily, hydralazine 50 mg TID, lopressor -cont Eliquis 2.5 mg PO BID -cont Cefepime for PNA -b cx neg, sputum pending -cont protonix for GI PPX -cont Lipitor Dispo: transfer to med surg Discussed with Dr Saldivar. Problem List - Problems (1) CKD (chronic kidney disease) Code(s): N18.9 - CHRONIC KIDNEY DISEASE, UNSPECIFIED Qualifiers: Chronic kidney disease stage: unspecified stage Qualified Code(s): N18.9 - Chronic kidney disease, unspecified (2) COPD exacerbation Code(s): J44.1 - CHRONIC OBSTRUCTIVE PULMONARY DISEASE W (ACUTE) EXACERBATION (3) Chronic diastolic CHF (congestive heart failure) Code(s): I50.32 - CHRONIC DIASTOLIC (CONGESTIVE) HEART FAILURE (4) GERD (gastroesophageal reflux disease) Code(s): K21.9 - GASTRO-ESOPHAGEAL REFLUX DISEASE WITHOUT ESOPHAGITIS Qualifiers: Esophagitis presence: esophagitis presence not specified Qualified Code(s) : K21.9 - Gastro-esophageal reflux disease without esophagitis (5) HTN (hypertension) Code(s): I10 - ESSENTIAL (PRIMARY) HYPERTENSION Qualifiers: Hypertension type: essential hypertension Qualified Code(s): I10 - Essential (primary) hypertension (6) Hypothyroidism Code(s): E03.9 - HYPOTHYROIDISM, UNSPECIFIED Qualifiers: Hypothyroidism type: unspecified Qualified Code(s): E03.9 - Hypothyroidism , unspecified (7) Paroxysmal A-fib Code(s): I48.0 - PAROXYSMAL ATRIAL FIBRILLATION (8) Pneumonia Code(s): J18.9 - PNEUMONIA, UNSPECIFIED ORGANISM (9) Respiratory failure with hypoxia Code(s): J96.91 - RESPIRATORY FAILURE, UNSPECIFIED WITH HYPOXIA Visit type - Emergency Visit Emergency Visit: Yes ED Registration Date: 06/24/18 Care time: The patient presented to the Emergency Department on the above date and was hospitalized for further evaluation of their emergent condition. - New Patient This patient is new to me today: No - Critical Care Critical Care patient: Yes Total Critical Care Time (in minutes): 35 Critical Care Statement: The care of this patient involved high complexity decision making to prevent further life threatening deterioration of the patient 's condition and/or to evaluate & treat vital organ system(s) failure or risk of failure.
--- NOTE | 2018-07-01 14:57 | PN ---
Progress Note (short form) - Note Progress Note: better comfortable pulmonary f/u noted medrol d/c ed lasix held today Vital Signs Temp 98.5 F 07/01/18 06:00 Pulse 97 H 07/01/18 10:00 Resp 18 07/01/18 10:00 BP 136/77 07/01/18 10:00 Pulse Ox 98 07/01/18 09:35 Intake & Output 06/30/18 07/01/18 07/01/18 23:59 11:59 23:59 Intake Total 960 100 Output Total 200 500 Balance 760 -400 Weight 164 lb 12.8 oz Intake: IVPB 100 100 Oral 860 Output: Urine 200 500 Void 200 500 Other: Voiding Method External Catheter Urinal # Unmeasured Voids Void 1 2 Bowel Movement No Yes Weight Measurement Method Built in [facility] Active Medications Acetaminophen (Tylenol -) 650 mg PO Q6H PRN PRN Reason: PAIN LEVEL 1-5 Albuterol Sulfate (Ventolin 0.083% Nebulizer Soln -) 1 amp NEB Q6H PRN PRN Reason: SHORT OF BREATH/WHEEZING Last Admin: 07/01/18 06:00 Dose: 1 amp Apixaban (Eliquis -) 2.5 mg PO BID [facility] Last Admin: 07/01/18 09:25 Dose: 2.5 mg Atorvastatin Calcium (Lipitor -) 10 mg PO [facility] Last Admin: 06/30/18 21:08 Dose: 10 mg Budesonide/Formoterol Fumarate (Symbicort 80/4.5mcg -) 2 puff IH BID [facility] Last Admin: 07/01/18 09:31 Dose: 2 puff Chlorhexidine Gluconate (Hibiclens For Decolonization -) 1 applic TP [facility] Last Admin: 06/30/18 21:08 Dose: 1 applic Hydralazine HCl (Apresoline -) 50 mg PO TID [facility] Last Admin: 07/01/18 06:08 Dose: 50 mg Cefepime HCl 2 gm/ Dextrose 100 mls @ 100 mls/hr IVPB BID [facility]; Protocol Last Admin: 07/01/18 09:25 Dose: 100 mls/hr Levothyroxine Sodium (Synthroid -) 75 mcg PO DAILY@0700 [facility] Last Admin: 07/01/18 06:08 Dose: 75 mcg Methylprednisolone Sodium Succinate (Solu-Medrol -) 40 mg IVPUSH DAILY [facility] Last Admin: 07/01/18 09:25 Dose: 40 mg Metoprolol Tartrate (Lopressor Injection -) 5 mg IVPUSH Q4H PRN PRN Reason: HYPERTENSION Last Admin: 06/29/18 02:00 Dose: 5 mg Multivitamins/Minerals/Vitamin C (Tab-A-Vit -) 1 tab PO DAILY [facility] Last Admin: 07/01/18 09:25 Dose: 1 tab Nifedipine (Procardia Xl -) 90 mg PO DAILY [facility] Last Admin: 07/01/18 09:25 Dose: 90 mg Pantoprazole Sodium (Protonix -) 40 mg PO DAILY [facility] Last Admin: 07/01/18 09:25 Dose: 40 mg CBC, BMP 07/01/18 05:10 07/01/18 05:10 cxr--slight improved Physical Examination Constitutional: Yes: alert and awake. comfortable. Eyes: Yes: Conjunctiva Clear Neck: Yes: Supple, Other (no jvd) Cardiovascular: Yes: Pulse Irregular Respiratory: Yes: Bilateral rales at bases-- improved Gastrointestinal: Yes: Soft/ non tender . bowel sound present Edema: No Neurological: Yes: Alert Psychiatric: Yes: Alert Assessment/Plan overall condition ---better Continue present care Abx Steroids---d/nadege nebulizer treatment Monitor bp-- Continue other meds discussed with nursing staff also can transfer to floor will follow Problem List - Problems (1) Respiratory failure with hypoxia Code(s): J96.91 - RESPIRATORY FAILURE, UNSPECIFIED WITH HYPOXIA (2) Chronic diastolic CHF (congestive heart failure) Code(s): I50.32 - CHRONIC DIASTOLIC (CONGESTIVE) HEART FAILURE (3) HTN (hypertension) Code(s): I10 - ESSENTIAL (PRIMARY) HYPERTENSION Qualifiers: Hypertension type: essential hypertension Qualified Code(s): I10 - Essential (primary) hypertension (4) Hypothyroidism Code(s): E03.9 - HYPOTHYROIDISM, UNSPECIFIED Qualifiers: Hypothyroidism type: unspecified Qualified Code(s): E03.9 - Hypothyroidism , unspecified (5) Paroxysmal A-fib Code(s): I48.0 - PAROXYSMAL ATRIAL FIBRILLATION
[2018-07-01] MEDS ORDERED: NOREPINEPHRINE BITARTRATE 8,000 MCG in DEXTROSE 5%-WATER - 492 ML IV SCH (15:00)
[2018-07-01] MEDS: ATORVASTATIN CA 10 MG TABLET (FP) PO SCH (22:36)
[2018-07-02] MEDS: CHLORHEXIDINE GLUCONATE 4% CLEANSER FOR DECOLONIZATION TP SCH ×2 (00:05→21:26)
[2018-07-02] MEDS: LEVOTHYROXINE NA 75 MCG TABLET (FP) PO SCH (06:23)
[2018-07-02] MEDS: hydrALAZINE HCL 50 MG TABLET (FP) PO SCH ×3 (06:23→21:25)
[2018-07-02 07:27] LABS: BASO % 0.7 % (0-2.0); EOS % 1.6 % (0-4.5); HEMATOCRIT 34.3 % (35.4-49); LYMPH % 2.4 % (8-40); MCH 25.6 pg (25.7-33.7); MCHC 32.1 g/dl (32.0-35.9); MEAN CELL VOLUME 79.9 fl (80-96); MEAN PLT VOLUME 6.7 fl (7.5-11.1); MONO % 6.2 % (3.8-10.2); NEUT % 89.1 % (42.8-82.8); PLATELET COUNT 605 K/MM3 (134-434); RBC 4.29 M/mm3 (4.00-5.60); RDW 19.3 % (11.9-15.9); WHITE BLOOD COUNT 25.9 K/mm3 (4.0-10.0)
[2018-07-02 07:59] LABS: CHLORIDE 103 mmol/L (98-107); POTASSIUM 3.5 mmol/L (3.5-5.1); SODIUM 146 mmol/L (136-145)
[2018-07-02 08:05] LABS: ALBUMIN 2.4 g/dl (3.4-5.0); ALK PHOS 67 U/L (45-117); ANION GAP 10 MMOL/L (8-16); BILIRUBIN,TOTAL 0.4 mg/dL (0.2-1.0); BLOOD UREA NITROGEN 69 mg/dL (7-18); CO2 33 mmol/L (21-32); CREATININE 1.6 mg/dL (0.7-1.3); GLUCOSE,RANDOM 86 mg/dL (74-106); SGOT/AST 19 U/L (15-37); SGPT/ALT 41 U/L (12-78); TOT PROT 5.9 g/dl (6.4-8.2)
[2018-07-02] MEDS ORDERED: PT OWN MED DRAWER 7, Y5N ONE ×2 (09:10→18:35)
[2018-07-02] MEDS: MULTIVITAMINS (DAILY MVI) TABLET (FP) PO SCH (09:16)
[2018-07-02] MEDS: NIFEdipine E.R. 90 MG TABLET (FP) PO SCH (09:16)
[2018-07-02] MEDS: PANTOPRAZOLE 40 MG TABLET (FP) PO SCH (09:16)
[2018-07-02] MEDS: BUDESONIDE/FORMETEROL FUMARATE 80/4.5 mcg INHALER IH SCH ×2 (09:17→21:24)
[2018-07-02] MEDS: APIXABAN 2.5 MG TABLET PO SCH ×2 (09:17→21:25)
--- NOTE | 2018-07-02 10:16 | PN ---
Progress Note (short form) - Note Progress Note: PULMONARY VSS/AFEBRILE Gen: less tachypneic Heart: irregular Lung: scattered basilar rales Abd: soft, nontender Ext: no edema labs/meds/notes reviewed ASSESSMENT AND PLAN: Acute on Chronic Hypoxic Respiratory Failure improving Pneumonia Severe Sepsis improving Acute Kidney Injury Acute COPD Exacerbation Acute on Chronic Diastolic Heart Failure Pulmonary HTN Atrial Flutter with RVR HTN Hyperlipidemia Hypothyroidism - continue antibiotics - medrol discontinued - inhaled bronchodilators standing and PRN - taper FiO2 to keep SpO2>90% - rate control - continue anticoagulation - monitor urine output, creatinine Bhavya AGUIAR MD
[2018-07-02 11:25] LABS: ANISOCYTOSIS 1+; OVALOCYTE 1+; PLATELET ESTIMATE INCREASED
--- NOTE | 2018-07-02 11:49 | PN ---
Progress Note (short form) - Note Progress Note: more comfortable denies pain feels better Vital Signs Temp 97.7 F 07/02/18 09:23 Pulse 90 07/02/18 09:23 Resp 18 07/02/18 09:23 BP 130/77 07/02/18 09:23 Pulse Ox 96 07/01/18 21:00 Intake & Output 07/01/18 07/01/18 07/02/18 11:59 23:59 11:59 Intake Total 100 100 Output Total 500 Balance -400 100 Weight 164 lb 12.8 oz Intake: IVPB 100 100 Output: Urine 500 Void 500 Other: Voiding Method Urinal Toilet Toilet # Unmeasured Voids Void 2 1 1 Bowel Movement Yes Weight Measurement Method Built in [facility] Active Medications Acetaminophen (Tylenol -) 650 mg PO Q6H PRN PRN Reason: PAIN LEVEL 1-5 Albuterol Sulfate (Ventolin 0.083% Nebulizer Soln -) 1 amp NEB Q6H PRN PRN Reason: SHORT OF BREATH/WHEEZING Last Admin: 07/01/18 06:00 Dose: 1 amp Apixaban (Eliquis -) 2.5 mg PO BID [facility] Last Admin: 07/02/18 09:17 Dose: 2.5 mg Atorvastatin Calcium (Lipitor -) 10 mg PO [facility] Last Admin: 07/01/18 22:36 Dose: 10 mg Budesonide/Formoterol Fumarate (Symbicort 80/4.5mcg -) 2 puff IH BID [facility] Last Admin: 07/02/18 09:17 Dose: 2 puff Chlorhexidine Gluconate (Hibiclens For Decolonization -) 1 applic TP [facility] Last Admin: 07/02/18 00:05 Dose: Not Given Hydralazine HCl (Apresoline -) 50 mg PO TID [facility] Last Admin: 07/02/18 06:23 Dose: 50 mg Levothyroxine Sodium (Synthroid -) 75 mcg PO DAILY@0700 [facility] Last Admin: 07/02/18 06:23 Dose: 75 mcg Multivitamins/Minerals/Vitamin C (Tab-A-Vit -) 1 tab PO DAILY [facility] Last Admin: 07/02/18 09:16 Dose: 1 tab Nifedipine (Procardia Xl -) 90 mg PO DAILY [facility] Last Admin: 07/02/18 09:16 Dose: 90 mg Pantoprazole Sodium (Protonix -) 40 mg PO DAILY JAGDEEP Last Admin: 07/02/18 09:16 Dose: 40 mg CBC, BMP 07/02/18 06:30 07/02/18 06:30 Physical Examination Constitutional: Yes: alert and awake. comfortable. Eyes: Yes: Conjunctiva Clear Neck: Yes: Supple, Other (no jvd) Cardiovascular: Yes: Pulse Irregular Respiratory: Yes: Bilateral rales at bases Gastrointestinal: Yes: Soft/ non tender . bowel sound present Edema: No Neurological: Yes: Alert Psychiatric: Yes: Alert Assessment/Plan overall condition ---better Continue present care Abx off steroids wbc elevated-- non toxic appearance was on steroids monitor nebulizer treatment Monitor bp--better Continue other meds discussed with nursing staff also will follow Problem List - Problems (1) Respiratory failure with hypoxia Code(s): J96.91 - RESPIRATORY FAILURE, UNSPECIFIED WITH HYPOXIA (2) Chronic diastolic CHF (congestive heart failure) Code(s): I50.32 - CHRONIC DIASTOLIC (CONGESTIVE) HEART FAILURE (3) HTN (hypertension) Code(s): I10 - ESSENTIAL (PRIMARY) HYPERTENSION Qualifiers: Hypertension type: essential hypertension Qualified Code(s): I10 - Essential (primary) hypertension (4) Hypothyroidism Code(s): E03.9 - HYPOTHYROIDISM, UNSPECIFIED Qualifiers: Hypothyroidism type: unspecified Qualified Code(s): E03.9 - Hypothyroidism , unspecified (5) Paroxysmal A-fib Code(s): I48.0 - PAROXYSMAL ATRIAL FIBRILLATION
--- NOTE | 2018-07-02 15:48 | PN ---
Progress Note (short form) - Note Progress Note: on nasal canulla Vital Signs Period Temp Pulse Resp BP Sys/De Santiago Pulse Ox Last 24 Hr 97.6 F-98.0 F 84-91 18-24 120-135/64-84 96-98 cor-rrr lungs crackles right base abd soft,nt ext no edema CBC, BMP 07/02/18 06:30 07/02/18 06:30 Microbiology 06/24/18 21:15 Blood - Peripheral Venous Blood Culture - Final NO GROWTH AFTER 5 DAYS INCUBATION 06/24/18 21:10 Blood - Peripheral Venous Blood Culture - Final NO GROWTH AFTER 5 DAYS INCUBATION 06/24/18 11:30 Blood - Peripheral Venous Blood Culture - Final NO GROWTH AFTER 5 DAYS INCUBATION 06/24/18 11:30 Blood - Peripheral Venous Blood Culture - Final NO GROWTH AFTER 5 DAYS INCUBATION 06/26/18 14:00 Nares - Mrsa Screen - Left MRSA Screen - Final NO MRSA ISOLATED 06/26/18 14:00 Nares - Mrsa Screen - Right MRSA Screen - Final NO MRSA ISOLATED 06/25/18 07:00 Sputum - Expectorated Gram Stain - Final 06/25/18 07:00 Sputum - Expectorated Sputum Culture - Final NORMAL RESPIRATORY JOANNA 06/24/18 19:50 Urine - Urine Clean Catch Legionella Antigen - Final 06/24/18 19:50 Urine - Urine Clean Catch Streptococcus pneumoniae Antigen ( M - Final 06/24/18 13:51 Urine - Urine Clean Catch Urine Culture - Final NO GROWTH OBTAINED cxray unchanged a/p resp failure with hypoxia RLL pneumonia day #8 copd exacerbation Penicillin allergy ckd afib prolonged Qtc leukocytosis- ?secondary to steroids, clinically pneumonia appears improved with decreaseding oxygen requirements continue cefepime another 48 hours Problem List - Problems (1) Respiratory failure with hypoxia Code(s): J96.91 - RESPIRATORY FAILURE, UNSPECIFIED WITH HYPOXIA (2) Pneumonia Code(s): J18.9 - PNEUMONIA, UNSPECIFIED ORGANISM (3) COPD exacerbation Code(s): J44.1 - CHRONIC OBSTRUCTIVE PULMONARY DISEASE W (ACUTE) EXACERBATION (4) CKD (chronic kidney disease) Code(s): N18.9 - CHRONIC KIDNEY DISEASE, UNSPECIFIED Qualifiers: Chronic kidney disease stage: unspecified stage Qualified Code(s): N18.9 - Chronic kidney disease, unspecified (5) Penicillin allergy Code(s): Z88.0 - ALLERGY STATUS TO PENICILLIN
[2018-07-02] MEDS: CEFEPIME 2 GM in DEXTROSE 5%-WATER 100 ML IVPB SCH ×2 (16:46→21:25)
[2018-07-02] MEDS: ATORVASTATIN CA 10 MG TABLET (FP) PO SCH (21:25)
[2018-07-03] MEDS: LEVOTHYROXINE NA 75 MCG TABLET (FP) PO SCH (05:59)
[2018-07-03] MEDS: hydrALAZINE HCL 50 MG TABLET (FP) PO SCH ×3 (05:59→22:39)
[2018-07-03 07:26] LABS: BASO % 0.1 % (0-2.0); EOS % 2.2 % (0-4.5); HEMATOCRIT 32.2 % (35.4-49); HEMOGLOBIN 10.4 GM/dL (11.7-16.9); LYMPH % 2.5 % (8-40); MCH 25.9 pg (25.7-33.7); MCHC 32.3 g/dl (32.0-35.9); MEAN CELL VOLUME 80.3 fl (80-96); MEAN PLT VOLUME 6.8 fl (7.5-11.1); MONO % 7.1 % (3.8-10.2); NEUT % 88.1 % (42.8-82.8); PLATELET COUNT 509 K/MM3 (134-434); RBC 4.01 M/mm3 (4.00-5.60); RDW 19.1 % (11.9-15.9); WHITE BLOOD COUNT 24.2 K/mm3 (4.0-10.0)
[2018-07-03 07:49] LABS: ALBUMIN 2.1 g/dl (3.4-5.0); ANION GAP 7 MMOL/L (8-16); BLOOD UREA NITROGEN 64 mg/dL (7-18); CALCIUM 7.5 mg/dL (8.5-10.1); CHLORIDE 102 mmol/L (98-107); CO2 34 mmol/L (21-32); CREATININE 1.5 mg/dL (0.7-1.3); GLUCOSE,RANDOM 71 mg/dL (74-106); POTASSIUM 3.4 mmol/L (3.5-5.1); SGOT/AST 21 U/L (15-37); SGPT/ALT 38 U/L (12-78); SODIUM 143 mmol/L (136-145)
[2018-07-03 07:51] LABS: ALK PHOS 64 U/L (45-117); BILIRUBIN,TOTAL 0.4 mg/dL (0.2-1.0); TOT PROT 5.6 g/dl (6.4-8.2)
[2018-07-03] MEDS ORDERED: PT OWN MED DRAWER 7, Y5N ONE ×3 (09:52→21:14)
[2018-07-03] MEDS: PANTOPRAZOLE 40 MG TABLET (FP) PO SCH (10:10)
[2018-07-03] MEDS: APIXABAN 2.5 MG TABLET PO SCH ×2 (10:10→22:39)
[2018-07-03] MEDS: CEFEPIME 2 GM in DEXTROSE 5%-WATER 100 ML IVPB SCH ×2 (10:10→22:39)
[2018-07-03] MEDS: BUDESONIDE/FORMETEROL FUMARATE 80/4.5 mcg INHALER IH SCH ×2 (10:10→22:40)
[2018-07-03] MEDS: MULTIVITAMINS (DAILY MVI) TABLET (FP) PO SCH (10:10)
[2018-07-03] MEDS: NIFEdipine E.R. 90 MG TABLET (FP) PO SCH (10:10)
[2018-07-03] MEDS: ALBUTEROL SO4 0.083% IH SOL 2.5 MG/3 ML VIAL.NEB. NEB PRN (11:26)
--- NOTE | 2018-07-03 13:00 | PN ---
Progress Note, [employer] - Note Progress Note: Selected Entries 06/26/18 06/26/18 06/26/18 02:00 06:00 09:48 Breakfast Lunch Supper Temperature 98 F 97.8 F 98.1 F 06/26/18 06/26/18 06/26/18 12:41 13:40 16:00 Breakfast 50% Lunch 75% Supper Temperature 98 F 06/26/18 06/27/18 06/27/18 22:00 02:00 06:00 Breakfast Lunch Supper Temperature 98.7 F 98.2 F 98.5 F 06/27/18 06/27/18 06/27/18 08:00 09:24 10:00 Breakfast 75% Lunch Supper Temperature 98.9 F 98.7 F 07/02/18 07/02/18 07/02/18 02:00 06:00 09:23 Breakfast Lunch Supper Temperature 98.0 F 97.7 F 97.7 F 07/02/18 07/02/18 07/02/18 11:58 13:00 14:39 Breakfast 100% Lunch 50% Supper Temperature 97.6 F 07/02/18 07/03/18 07/03/18 18:30 02:00 06:00 Breakfast Lunch Supper 100% Temperature 97.6 F 98.3 F 97.5 F L 07/03/18 07/03/18 11:11 11:23 Breakfast 100% Lunch Supper Temperature 98.1 F Laboratory Tests 06/29/18 06/30/18 07/01/18 05:30 05:30 05:10 WBC 17.9 H 21.3 H 25.9 H 07/02/18 07/03/18 06:30 06:30 WBC 25.9 H 24.2 H CXR unchanged. Clinmically improved. Pt reports that he is allergic to Barium and MBS can not be done. Overtly swallow is functional.
[2018-07-03 13:37] LABS: ANISOCYTOSIS 1+; MACROCYTOSIS 1+; PLATELET ESTIMATE INCREASED
--- NOTE | 2018-07-03 13:59 | PN ---
Progress Note (short form) - Note Progress Note: Progress Note (short form) - Note Progress Note: comfortable denies pain appears to be SOB per Nurse feels better Vital Signs - 24 hr 07/02/18 07/02/18 07/03/18 18:30 21:00 02:00 Temperature 97.6 F 98.3 F Pulse Rate 93 H 85 Respiratory 18 18 18 Rate Blood Pressure 135/87 109/58 O2 Sat by Pulse 97 Oximetry (%) 07/03/18 07/03/18 07/03/18 06:00 10:06 11:23 Temperature 97.5 F L 98.1 F Pulse Rate 86 72 Respiratory 18 24 Rate Blood Pressure 134/63 120/67 O2 Sat by Pulse 97 Oximetry (%) Current Medications Generic Name Dose Route Start Last Admin Trade Name Freq PRN Reason Stop Dose Admin Acetaminophen 650 mg 06/24/18 14:46 Tylenol - PO Q6H PRN PAIN LEVEL 1-5 Albuterol Sulfate 1 amp 06/26/18 11:30 07/03/18 11:26 Ventolin 0.083% Nebulizer Soln - NEB 1 amp Q6H PRN Administration SHORT OF BREATH/WHEEZING Apixaban 2.5 mg 06/24/18 22:00 07/03/18 10:10 Eliquis - PO 2.5 mg BID JAGDEEP Administration Atorvastatin Calcium 10 mg 06/25/18 22:00 07/02/18 21:25 Lipitor - PO 10 mg HS JAGDEEP Administration Budesonide/Formoterol Fumarate 2 puff 06/24/18 22:00 07/03/18 10:10 Symbicort 80/4.5mcg - IH 2 puff BID JAGDEEP Administration Chlorhexidine Gluconate 1 applic 06/24/18 22:00 07/02/18 21:26 Hibiclens For Decolonization - TP Not Given HS JAGDEEP Hydralazine HCl 50 mg 06/30/18 14:00 07/03/18 05:59 Apresoline - PO 50 mg TID JAGDEEP Administration Cefepime HCl 2 gm/ Dextrose 100 mls @ 200 mls/hr 07/02/18 15:42 07/03/18 10: 10 IVPB 200 mls/hr BID JAGDEEP Administration Protocol Levothyroxine Sodium 75 mcg 06/25/18 07:00 07/03/18 05:59 Synthroid - PO 75 mcg DAILY@0700 JAGDEEP Administration Multivitamins/Minerals/Vitamin C 1 tab 06/25/18 10:00 07/03/18 10:10 Tab-A-Vit - PO 1 tab DAILY JAGDEEP Administration Nifedipine 90 mg 06/28/18 10:00 07/03/18 10:10 Procardia Xl - PO 90 mg DAILY JAGDEEP Administration Pantoprazole Sodium 40 mg 06/28/18 10:00 07/03/18 10:10 Protonix - PO 40 mg DAILY JAGDEEP Administration Laboratory Results - last 24 hr 07/03/18 07/03/18 06:30 06:30 WBC 24.2 H RBC 4.01 Hgb 10.4 L Hct 32.2 L MCV 80.3 MCH 25.9 MCHC 32.3 RDW 19.1 H Plt Count 509 H MPV 6.8 L Absolute Neuts (auto) 21.4 H Neutrophils % 88.1 H Lymphocytes % 2.5 L Monocytes % 7.1 Eosinophils % 2.2 Basophils % 0.1 Nucleated RBC % 0 Sodium 143 Potassium 3.4 L Chloride 102 Carbon Dioxide 34 H Anion Gap 7 L BUN 64 H Creatinine 1.5 H Creat Clearance w eGFR 44.59 Random Glucose 71 L Calcium 7.5 L Total Bilirubin 0.4 AST 21 ALT 38 Alkaline Phosphatase 64 Total Protein 5.6 L Albumin 2.1 L Physical Examination Constitutional: Yes: alert and awake. comfortable. Eyes: Yes: Conjunctiva Clear Neck: Yes: Supple, Other (no jvd) Cardiovascular: Yes: Pulse Irregular Respiratory: Yes: Bilateral rales at bases Gastrointestinal: Yes: Soft/ non tender . bowel sound present,abd distended Edema: No Neurological: Yes: Alert Psychiatric: Yes: Alert Assessment/Plan overall condition ---better Continue present care Abx- one more day per ID off steroids wbc elevated-- non toxic appearance was on steroids monitor nebulizer treatment Monitor bp--better Continue other meds discussed with nursing staff also check sono abd-distended Problem List - Problems (1) Respiratory failure with hypoxia Code(s): J96.91 - RESPIRATORY FAILURE, UNSPECIFIED WITH HYPOXIA (2) Chronic diastolic CHF (congestive heart failure) Code(s): I50.32 - CHRONIC DIASTOLIC (CONGESTIVE) HEART FAILURE (3) HTN (hypertension) Code(s): I10 - ESSENTIAL (PRIMARY) HYPERTENSION Qualifiers: Hypertension type: essential hypertension Qualified Code(s): I10 - Essential (primary) hypertension (4) Hypothyroidism Code(s): E03.9 - HYPOTHYROIDISM, UNSPECIFIED Qualifiers: Hypothyroidism type: unspecified Qualified Code(s): E03.9 - Hypothyroidism , unspecified (5) Paroxysmal A-fib Code(s): I48.0 - PAROXYSMAL ATRIAL FIBRILLATION
--- NOTE | 2018-07-03 13:59 | PN ---
Progress Note, Physician History of Present Illness: PULMONARY ALERT,OOB-CHAIR,MILDLY DYSPNEIC ON O2 - Current Medication List Current Medications: Active Medications Acetaminophen (Tylenol -) 650 mg PO Q6H PRN PRN Reason: PAIN LEVEL 1-5 Albuterol Sulfate (Ventolin 0.083% Nebulizer Soln -) 1 amp NEB Q6H PRN PRN Reason: SHORT OF BREATH/WHEEZING Last Admin: 07/03/18 11:26 Dose: 1 amp Apixaban (Eliquis -) 2.5 mg PO BID [facility] Last Admin: 07/03/18 10:10 Dose: 2.5 mg Atorvastatin Calcium (Lipitor -) 10 mg PO [facility] Last Admin: 07/02/18 21:25 Dose: 10 mg Budesonide/Formoterol Fumarate (Symbicort 80/4.5mcg -) 2 puff IH BID [facility] Last Admin: 07/03/18 10:10 Dose: 2 puff Chlorhexidine Gluconate (Hibiclens For Decolonization -) 1 applic TP [facility] Last Admin: 07/02/18 21:26 Dose: Not Given Hydralazine HCl (Apresoline -) 50 mg PO TID [facility] Last Admin: 07/03/18 05:59 Dose: 50 mg Cefepime HCl 2 gm/ Dextrose 100 mls @ 200 mls/hr IVPB BID [facility]; Protocol Last Admin: 07/03/18 10:10 Dose: 200 mls/hr Levothyroxine Sodium (Synthroid -) 75 mcg PO DAILY@0700 [facility] Last Admin: 07/03/18 05:59 Dose: 75 mcg Multivitamins/Minerals/Vitamin C (Tab-A-Vit -) 1 tab PO DAILY [facility] Last Admin: 07/03/18 10:10 Dose: 1 tab Nifedipine (Procardia Xl -) 90 mg PO DAILY [facility] Last Admin: 07/03/18 10:10 Dose: 90 mg Pantoprazole Sodium (Protonix -) 40 mg PO DAILY [facility] Last Admin: 07/03/18 10:10 Dose: 40 mg - Objective Vital Signs: Vital Signs Temperature 98.1 F 07/03/18 11:23 Pulse Rate 72 07/03/18 10:06 Respiratory Rate 24 07/03/18 10:06 Blood Pressure 120/67 07/03/18 10:06 O2 Sat by Pulse Oximetry (%) 97 07/03/18 06:00 Constitutional: Yes: Well Nourished, Calm Eyes: Yes: WNL HENT: Yes: WNL Neck: Yes: WNL Cardiovascular: Yes: Regular Rate and Rhythm, S1, S2 Respiratory: Yes: Diminished, Rales (SCATTERED BRIJESH CRACKLES) Gastrointestinal: Yes: Normal Bowel Sounds, Soft Extremities: Yes: WNL Edema: No Labs: CBC, BMP 07/03/18 06:30 07/03/18 06:30 INR, PTT INR 2.08 (0.83-1.09) H 06/24/18 11:30 Assessment/Plan ASSESSMENT AND PLAN: Acute on Chronic Hypoxic Respiratory Failure improving Pneumonia Severe Sepsis improving Acute Kidney Injury Acute COPD Exacerbation Acute on Chronic Diastolic Heart Failure Pulmonary HTN Atrial Flutter with RVR HTN Hyperlipidemia Hypothyroidism - continue antibiotics - inhaled bronchodilators standing and PRN - taper FiO2 to keep SpO2>90% - rate control - anticoagulation - hold lasix today - monitor urine output, creatinine DR MENDOZA
[2018-07-03] MEDS ORDERED: POTASSIUM CHLORIDE TABS 20 MEQ TABLET.ER (FP) PO ONE (14:15)
[2018-07-03] MEDS: ATORVASTATIN CA 10 MG TABLET (FP) PO SCH (22:39)
[2018-07-03] MEDS: CHLORHEXIDINE GLUCONATE 4% CLEANSER FOR DECOLONIZATION TP SCH (22:40)
[2018-07-04] MEDS: LEVOTHYROXINE NA 75 MCG TABLET (FP) PO SCH (06:34)
[2018-07-04] MEDS: hydrALAZINE HCL 50 MG TABLET (FP) PO SCH ×3 (06:34→21:35)
[2018-07-04 07:38] LABS: ALBUMIN 2.2 g/dl (3.4-5.0); ANION GAP 8 MMOL/L (8-16); BLOOD UREA NITROGEN 59 mg/dL (7-18); CALCIUM 7.8 mg/dL (8.5-10.1); CHLORIDE 102 mmol/L (98-107); CO2 33 mmol/L (21-32); GLUCOSE,RANDOM 61 mg/dL (74-106); POTASSIUM 3.9 mmol/L (3.5-5.1); SGOT/AST 15 U/L (15-37); SGPT/ALT 34 U/L (12-78); SODIUM 143 mmol/L (136-145)
[2018-07-04 07:41] LABS: ALK PHOS 65 U/L (45-117); BILIRUBIN,TOTAL 0.3 mg/dL (0.2-1.0); CREATININE 1.5 mg/dL (0.7-1.3); TOT PROT 5.6 g/dl (6.4-8.2)
[2018-07-04 07:49] LABS: BASO % 0.2 % (0-2.0); EOS % 1.9 % (0-4.5); HEMATOCRIT 32.9 % (35.4-49); HEMOGLOBIN 10.4 GM/dL (11.7-16.9); MCH 25.4 pg (25.7-33.7); MCHC 31.5 g/dl (32.0-35.9); MEAN CELL VOLUME 80.7 fl (80-96); MONO % 6.6 % (3.8-10.2); NEUT % 88.3 % (42.8-82.8); PLATELET COUNT 452 K/MM3 (134-434); RBC 4.08 M/mm3 (4.00-5.60); RDW 19.1 % (11.9-15.9); WHITE BLOOD COUNT 24.4 K/mm3 (4.0-10.0)
[2018-07-04] MEDS ORDERED: PT OWN MED DRAWER 7, Y5N ONE ×2 (09:14→21:21)
[2018-07-04] MEDS: CEFEPIME 2 GM in DEXTROSE 5%-WATER 100 ML IVPB SCH ×2 (09:17→21:34)
[2018-07-04] MEDS: APIXABAN 2.5 MG TABLET PO SCH ×2 (09:17→21:34)
[2018-07-04] MEDS: PANTOPRAZOLE 40 MG TABLET (FP) PO SCH (09:18)
[2018-07-04] MEDS: MULTIVITAMINS (DAILY MVI) TABLET (FP) PO SCH (09:18)
[2018-07-04] MEDS: NIFEdipine E.R. 90 MG TABLET (FP) PO SCH (09:18)
[2018-07-04] MEDS: BUDESONIDE/FORMETEROL FUMARATE 80/4.5 mcg INHALER IH SCH ×2 (09:18→21:34)
[2018-07-04] MEDS: ALBUTEROL SO4 0.083% IH SOL 2.5 MG/3 ML VIAL.NEB. NEB PRN (11:52)
--- NOTE | 2018-07-04 12:18 | PN ---
Progress Note, HOME HEALTH NURSE LICENSED PRACTICAL - Note Progress Note: Good appetite. Overtly tolerating diet. CXR unchanged. Clinically improved. Pt reports that he is allergic to Barium and MBS can not be done. Overtly swallow is functional.
--- NOTE | 2018-07-04 12:36 | PN ---
Progress Note, Physician History of Present Illness: pulmonary alert,oob-chair,feeling better,less dyspneic - Current Medication List Current Medications: Active Medications Acetaminophen (Tylenol -) 650 mg PO Q6H PRN PRN Reason: PAIN LEVEL 1-5 Albuterol Sulfate (Ventolin 0.083% Nebulizer Soln -) 1 amp NEB Q6H PRN PRN Reason: SHORT OF BREATH/WHEEZING Last Admin: 07/04/18 11:52 Dose: 1 amp Apixaban (Eliquis -) 2.5 mg PO BID [facility] Last Admin: 07/04/18 09:17 Dose: 2.5 mg Atorvastatin Calcium (Lipitor -) 10 mg PO [facility] Last Admin: 07/03/18 22:39 Dose: 10 mg Budesonide/Formoterol Fumarate (Symbicort 80/4.5mcg -) 2 puff IH BID [facility] Last Admin: 07/04/18 09:18 Dose: 2 puff Chlorhexidine Gluconate (Hibiclens For Decolonization -) 1 applic TP [facility] Last Admin: 07/03/18 22:40 Dose: Not Given Hydralazine HCl (Apresoline -) 50 mg PO TID [facility] Last Admin: 07/04/18 06:34 Dose: 50 mg Cefepime HCl 2 gm/ Dextrose 100 mls @ 200 mls/hr IVPB BID [facility]; Protocol Last Admin: 07/04/18 09:17 Dose: 200 mls/hr Levothyroxine Sodium (Synthroid -) 75 mcg PO DAILY@0700 [facility] Last Admin: 07/04/18 06:34 Dose: 75 mcg Multivitamins/Minerals/Vitamin C (Tab-A-Vit -) 1 tab PO DAILY [facility] Last Admin: 07/04/18 09:18 Dose: 1 tab Nifedipine (Procardia Xl -) 90 mg PO DAILY [facility] Last Admin: 07/04/18 09:18 Dose: 90 mg Pantoprazole Sodium (Protonix -) 40 mg PO DAILY [facility] Last Admin: 07/04/18 09:18 Dose: 40 mg - Objective Vital Signs: Vital Signs Temperature 97.7 F 07/04/18 08:46 Pulse Rate 88 07/04/18 08:46 Respiratory Rate 22 07/04/18 08:46 Blood Pressure 109/72 07/04/18 08:46 O2 Sat by Pulse Oximetry (%) 97 07/04/18 10:53 Constitutional: Yes: Calm, Thin Eyes: Yes: WNL HENT: Yes: WNL Neck: Yes: WNL Cardiovascular: Yes: Regular Rate and Rhythm, S1, S2 Respiratory: Yes: Rales, Rhonchi (darcy rales l>r,few scattered rhonchi) Gastrointestinal: Yes: Normal Bowel Sounds, Soft Extremities: Yes: WNL Edema: No Labs: CBC, BMP 07/04/18 06:20 07/04/18 06:20 INR, PTT INR 2.08 (0.83-1.09) H 06/24/18 11:30 Assessment/Plan ASSESSMENT AND PLAN: Acute on Chronic Hypoxic Respiratory Failure improving Pneumonia Severe Sepsis improving Acute Kidney Injury Acute COPD Exacerbation Acute on Chronic Diastolic Heart Failure Pulmonary HTN Atrial Flutter with RVR HTN Hyperlipidemia Hypothyroidism - antibiotics - inhaled bronchodilators standing and PRN - taper FiO2 to keep SpO2>90% - rate control - anticoagulation - hold lasix today - monitor urine output, creatinine DR MENDOZA
--- NOTE | 2018-07-04 13:40 | PN ---
Progress Note (short form) - Note Progress Note: Progress Note (short form) - Note Progress Note: comfortable denies pain \ feels better Vital Signs - 24 hr 07/04/18 07/04/18 07/04/18 02:00 06:00 08:46 Temperature 98.1 F 98.2 F 97.7 F Pulse Rate 77 68 88 Respiratory 20 20 22 Rate Blood Pressure 125/62 117/94 109/72 O2 Sat by Pulse Oximetry (%) 07/04/18 07/04/18 07/04/18 10:53 12:38 13:13 Temperature 97.7 F 97.6 F Pulse Rate 100 H 95 H Respiratory 22 17 Rate Blood Pressure 111/75 128/68 O2 Sat by Pulse 97 Oximetry (%) 07/04/18 07/04/18 18:26 22:00 Temperature 98.2 F 98.5 F Pulse Rate 89 84 Respiratory 22 20 Rate Blood Pressure 124/66 132/77 O2 Sat by Pulse Oximetry (%) Current Medications Generic Name Dose Route Start Last Admin Trade Name Freq PRN Reason Stop Dose Admin Acetaminophen 650 mg 06/24/18 14:46 Tylenol - PO Q6H PRN PAIN LEVEL 1-5 Albuterol Sulfate 1 amp 06/26/18 11:30 07/04/18 11:52 Ventolin 0.083% Nebulizer Soln - NEB 1 amp Q6H PRN Administration SHORT OF BREATH/WHEEZING Apixaban 2.5 mg 06/24/18 22:00 07/04/18 21:34 Eliquis - PO 2.5 mg BID JAGDEEP Administration Atorvastatin Calcium 10 mg 06/25/18 22:00 07/04/18 21:34 Lipitor - PO 10 mg HS JAGDEEP Administration Budesonide/Formoterol Fumarate 2 puff 06/24/18 22:00 07/04/18 21:34 Symbicort 80/4.5mcg - IH 2 puff BID JAGDEEP Administration Chlorhexidine Gluconate 1 applic 06/24/18 22:00 07/04/18 21:32 Hibiclens For Decolonization - TP Not Given HS JAGDEEP Hydralazine HCl 50 mg 06/30/18 14:00 07/04/18 21:35 Apresoline - PO 50 mg TID JAGEDEP Administration Cefepime HCl 2 gm/ Dextrose 100 mls @ 200 mls/hr 07/02/18 15:42 09/05/18 21: 34 IVPB 200 mls/hr BID JAGDEEP Administration Protocol Levothyroxine Sodium 75 mcg 06/25/18 07:00 07/04/18 06:34 Synthroid - PO 75 mcg DAILY@0700 JAGDEEP Administration Multivitamins/Minerals/Vitamin C 1 tab 06/25/18 10:00 07/04/18 09:18 Tab-A-Vit - PO 1 tab DAILY JAGDEEP Administration Nifedipine 90 mg 06/28/18 10:00 07/04/18 09:18 Procardia Xl - PO 90 mg DAILY JAGDEEP Administration Pantoprazole Sodium 40 mg 06/28/18 10:00 07/04/18 09:18 Protonix - PO 40 mg DAILY JAGDEEP Administration Laboratory Results - last 24 hr 07/04/18 07/04/18 06:20 06:20 WBC 24.4 H RBC 4.08 Hgb 10.4 L Hct 32.9 L MCV 80.7 MCH 25.4 L MCHC 31.5 L RDW 19.1 H Plt Count 452 H MPV 7.0 L Absolute Neuts (auto) 21.6 H Neutrophils % 88.3 H Neutrophils % (Manual) 89.9 H Band Neutrophils % 0.0 Lymphocytes % 3.0 L Lymphocytes % (Manual) 2.0 L D Monocytes % 6.6 Monocytes % (Manual) 5 Eosinophils % 1.9 Eosinophils % (Manual) 2.0 D Basophils % 0.2 Basophils % (Manual) 0.0 Myelocytes % (Man) 1 Promyelocytes % (Man) 0 Blast Cells % (Manual) 0 Nucleated RBC % 0 Metamyelocytes 0 D Hypochromia 1+ Platelet Estimate Normal Polychromasia 0 Poikilocytosis 0 Basophilic Stippling 1+ Anisocytosis 1+ Microcytosis 1+ Macrocytosis 1+ Schistocytes 1+ Sodium 143 Potassium 3.9 Chloride 102 Carbon Dioxide 33 H Anion Gap 8 BUN 59 H Creatinine 1.5 H Creat Clearance w eGFR 44.59 Random Glucose 61 L Calcium 7.8 L Total Bilirubin 0.3 AST 15 D ALT 34 Alkaline Phosphatase 65 Total Protein 5.6 L Albumin 2.2 L Physical Examination Constitutional: Yes: alert and awake. comfortable. Eyes: Yes: Conjunctiva Clear Neck: Yes: Supple, Other (no jvd) Cardiovascular: Yes: Pulse Irregular Respiratory: Yes: Bilateral rales at bases Gastrointestinal: Yes: Soft/ non tender . bowel sound present,abd distended slight Edema: No Neurological: Yes: Alert Psychiatric: Yes: Alert Assessment/Plan overall condition ---better Continue present care Abx- one more day per ID off steroids wbc elevated-- non toxic appearance- persistent- received steroids monitor nebulizer treatment Monitor bp--better Continue other meds discussed with nursing staff also check sono abd-no ascites Problem List - Problems (1) Respiratory failure with hypoxia Code(s): J96.91 - RESPIRATORY FAILURE, UNSPECIFIED WITH HYPOXIA (2) Chronic diastolic CHF (congestive heart failure) Code(s): I50.32 - CHRONIC DIASTOLIC (CONGESTIVE) HEART FAILURE (3) HTN (hypertension) Code(s): I10 - ESSENTIAL (PRIMARY) HYPERTENSION Qualifiers: Hypertension type: essential hypertension Qualified Code(s): I10 - Essential (primary) hypertension (4) Hypothyroidism Code(s): E03.9 - HYPOTHYROIDISM, UNSPECIFIED Qualifiers: Hypothyroidism type: unspecified Qualified Code(s): E03.9 - Hypothyroidism , unspecified (5) Paroxysmal A-fib Code(s): I48.0 - PAROXYSMAL ATRIAL FIBRILLATION
[2018-07-04 13:48] LABS: ANISOCYTOSIS 1+; MACROCYTOSIS 1+; PLATELET ESTIMATE NORMAL
[2018-07-04] MEDS: CHLORHEXIDINE GLUCONATE 4% CLEANSER FOR DECOLONIZATION TP SCH (21:32)
[2018-07-04] MEDS: ATORVASTATIN CA 10 MG TABLET (FP) PO SCH (21:34)
[2018-07-05] MEDS: LEVOTHYROXINE NA 75 MCG TABLET (FP) PO SCH (06:01)
[2018-07-05] MEDS: hydrALAZINE HCL 50 MG TABLET (FP) PO SCH ×3 (06:01→22:18)
[2018-07-05 07:26] LABS: BASO % 0.3 % (0-2.0); EOS % 1.9 % (0-4.5); HEMATOCRIT 30.8 % (35.4-49); HEMOGLOBIN 9.9 GM/dL (11.7-16.9); LYMPH % 3.1 % (8-40); MCHC 32.3 g/dl (32.0-35.9); MEAN CELL VOLUME 80.7 fl (80-96); MEAN PLT VOLUME 6.9 fl (7.5-11.1); NEUT % 87.7 % (42.8-82.8); PLATELET COUNT 360 K/MM3 (134-434); RBC 3.82 M/mm3 (4.00-5.60); RDW 19.6 % (11.9-15.9); WHITE BLOOD COUNT 23.3 K/mm3 (4.0-10.0)
[2018-07-05] MEDS ORDERED: PT OWN MED DRAWER 7, Y5N ONE ×2 (09:20→22:14)
[2018-07-05] MEDS: NIFEdipine E.R. 90 MG TABLET (FP) PO SCH (10:02)
[2018-07-05] MEDS: PANTOPRAZOLE 40 MG TABLET (FP) PO SCH (10:02)
[2018-07-05] MEDS: APIXABAN 2.5 MG TABLET PO SCH ×2 (10:02→22:18)
[2018-07-05] MEDS: BUDESONIDE/FORMETEROL FUMARATE 80/4.5 mcg INHALER IH SCH ×2 (10:03→22:20)
[2018-07-05] MEDS: MULTIVITAMINS (DAILY MVI) TABLET (FP) PO SCH (10:03)
[2018-07-05] MEDS: CEFEPIME 2 GM in DEXTROSE 5%-WATER 100 ML IVPB SCH ×2 (10:03→11:17)
[2018-07-05 10:34] LABS: ANISOCYTOSIS 1+; PLATELET ESTIMATE NORMAL
--- NOTE | 2018-07-05 13:19 | PN ---
Progress Note (short form) - Note Progress Note: Progress Note (short form) - Note Progress Note: comfortable denies pain feels well no SOB Vital Signs - 24 hr 07/04/18 07/04/18 07/04/18 18:26 21:00 22:00 Temperature 98.2 F 98.5 F Pulse Rate 89 84 Respiratory 22 20 20 Rate Blood Pressure 124/66 132/77 O2 Sat by Pulse 94 L Oximetry (%) 07/05/18 07/05/18 07/05/18 02:00 06:00 09:00 Temperature 97.7 F 98.0 F 97.7 F Pulse Rate 86 85 90 Respiratory 20 20 16 Rate Blood Pressure 130/77 110/63 122/75 O2 Sat by Pulse Oximetry (%) Current Medications Generic Name Dose Route Start Last Admin Trade Name Freq PRN Reason Stop Dose Admin Acetaminophen 650 mg 06/24/18 14:46 Tylenol - PO Q6H PRN PAIN LEVEL 1-5 Albuterol Sulfate 1 amp 06/26/18 11:30 07/04/18 11:52 Ventolin 0.083% Nebulizer Soln - NEB 1 amp Q6H PRN Administration SHORT OF BREATH/WHEEZING Apixaban 2.5 mg 06/24/18 22:00 07/05/18 10:02 Eliquis - PO 2.5 mg BID JAGDEEP Administration Atorvastatin Calcium 10 mg 06/25/18 22:00 07/04/18 21:34 Lipitor - PO 10 mg HS [facility]AGDEEP Administration Budesonide/Formoterol Fumarate 2 puff 06/24/18 22:00 07/05/18 10:03 Symbicort 80/4.5mcg - IH 2 puff BID JAGDEEP Administration Chlorhexidine Gluconate 1 applic 06/24/18 22:00 07/04/18 21:32 Hibiclens For Decolonization - TP Not Given HS [facility] Hydralazine HCl 50 mg 06/30/18 14:00 07/05/18 06:01 Apresoline - PO 50 mg TID JAGDEEP Administration Levothyroxine Sodium 75 mcg 06/25/18 07:00 07/05/18 06:01 Synthroid - PO 75 mcg DAILY@0700 JAGDEEP Administration Multivitamins/Minerals/Vitamin C 1 tab 06/25/18 10:00 07/05/18 10:03 Tab-A-Vit - PO 1 tab DAILY [facility]AG[facility]EP Administration Nifedipine 90 mg 06/28/18 10:00 07/05/18 10:02 Procardia Xl - PO 90 mg DAILY JAGDEEP Administration Pantoprazole Sodium 40 mg 06/28/18 10:00 07/05/18 10:02 Protonix - PO 40 mg DAILY JAGDEEP Administration Laboratory Results - last 24 hr 07/04/18 07/05/18 06:20 06:35 WBC 23.3 H RBC 3.82 L Hgb 9.9 L Hct 30.8 L MCV 80.7 MCH 26.0 MCHC 32.3 RDW 19.6 H Plt Count 360 D MPV 6.9 L Absolute Neuts (auto) 20.5 H Neutrophils % 87.7 H Neutrophils % (Manual) 89.9 H 87.9 H Band Neutrophils % 0.0 0.0 Lymphocytes % 3.1 L Lymphocytes % (Manual) 2.0 L D 1.0 L D Monocytes % 7.0 Monocytes % (Manual) 5 4 Eosinophils % 1.9 Eosinophils % (Manual) 2.0 D 0.0 D Basophils % 0.3 Basophils % (Manual) 0.0 0.0 Myelocytes % (Man) 1 7 H D Promyelocytes % (Man) 0 0 Blast Cells % (Manual) 0 0 Nucleated RBC % 0 Metamyelocytes 0 D 0 Hypochromia 1+ 0 Platelet Estimate Normal Normal Polychromasia 0 0 Poikilocytosis 0 0 Basophilic Stippling 1+ Anisocytosis 1+ 1+ Microcytosis 1+ 1+ Macrocytosis 1+ Schistocytes 1+ Physical Examination Constitutional: Yes: alert and awake. comfortable. Eyes: Yes: Conjunctiva Clear Neck: Yes: Supple, Other (no jvd) Cardiovascular: Yes: Pulse Irregular Respiratory: Yes: Bilateral rales at bases Gastrointestinal: Yes: Soft/ non tender . bowel sound present, no edema Neurological: Yes: Alert Psychiatric: Yes: Alert Assessment/Plan overall condition ---better Continue present care Abx- dc today off steroids wbc elevated-- non toxic appearance- persistent- received steroids? leukemoid reaction due to infection-- will consult Hematology monitor nebulizer treatment Monitor bp--better Continue other meds discussed with nursing staff also Problem List - Problems (1) Respiratory failure with hypoxia Code(s): J96.91 - RESPIRATORY FAILURE, UNSPECIFIED WITH HYPOXIA (2) Chronic diastolic CHF (congestive heart failure) Code(s): I50.32 - CHRONIC DIASTOLIC (CONGESTIVE) HEART FAILURE (3) HTN (hypertension) Code(s): I10 - ESSENTIAL (PRIMARY) HYPERTENSION Qualifiers: Hypertension type: essential hypertension Qualified Code(s): I10 - Essential (primary) hypertension (4) Hypothyroidism Code(s): E03.9 - HYPOTHYROIDISM, UNSPECIFIED Qualifiers: Hypothyroidism type: unspecified Qualified Code(s): E03.9 - Hypothyroidism , unspecified (5) Paroxysmal A-fib Code(s): I48.0 - PAROXYSMAL ATRIAL FIBRILLATION
--- NOTE | 2018-07-05 14:57 | PN ---
Progress Note, Physician History of Present Illness: pulmonary alert,feeling bettet,nad - Current Medication List Current Medications: Active Medications Acetaminophen (Tylenol -) 650 mg PO Q6H PRN PRN Reason: PAIN LEVEL 1-5 Albuterol Sulfate (Ventolin 0.083% Nebulizer Soln -) 1 amp NEB Q6H PRN PRN Reason: SHORT OF BREATH/WHEEZING Last Admin: 07/04/18 11:52 Dose: 1 amp Apixaban (Eliquis -) 2.5 mg PO BID [facility] Last Admin: 07/05/18 10:02 Dose: 2.5 mg Atorvastatin Calcium (Lipitor -) 10 mg PO HS [facility] Last Admin: 07/04/18 21:34 Dose: 10 mg Budesonide/Formoterol Fumarate (Symbicort 80/4.5mcg -) 2 puff IH BID [facility] Last Admin: 07/05/18 10:03 Dose: 2 puff Chlorhexidine Gluconate (Hibiclens For Decolonization -) 1 applic TP [facility] Last Admin: 07/04/18 21:32 Dose: Not Given Hydralazine HCl (Apresoline -) 50 mg PO TID [facility] Last Admin: 07/05/18 14:51 Dose: 50 mg Levothyroxine Sodium (Synthroid -) 75 mcg PO DAILY@0700 [facility] Last Admin: 07/05/18 06:01 Dose: 75 mcg Multivitamins/Minerals/Vitamin C (Tab-A-Vit -) 1 tab PO DAILY [facility] Last Admin: 07/05/18 10:03 Dose: 1 tab Nifedipine (Procardia Xl -) 90 mg PO DAILY [facility] Last Admin: 07/05/18 10:02 Dose: 90 mg Pantoprazole Sodium (Protonix -) 40 mg PO DAILY [facility] Last Admin: 07/05/18 10:02 Dose: 40 mg - Objective Vital Signs: Vital Signs Temperature 97.7 F 07/05/18 09:00 Pulse Rate 84 07/05/18 14:00 Respiratory Rate 18 07/05/18 14:00 Blood Pressure 134/68 07/05/18 14:00 O2 Sat by Pulse Oximetry (%) 94 L 07/04/18 21:00 Constitutional: Yes: Well Nourished, Calm HENT: Yes: WNL Neck: Yes: WNL Cardiovascular: Yes: Regular Rate and Rhythm, S1, S2 Respiratory: Yes: Diminished Gastrointestinal: Yes: Normal Bowel Sounds, Soft Extremities: Yes: WNL Edema: No Labs: CBC, BMP 07/05/18 06:35 Assessment/Plan ASSESSMENT AND PLAN: Acute on Chronic Hypoxic Respiratory Failure improved Pneumonia Severe Sepsis improving Acute Kidney Injury Acute COPD Exacerbation Acute on Chronic Diastolic Heart Failure Pulmonary HTN Atrial Flutter with RVR HTN Hyperlipidemia Hypothyroidism - ac - inhaled bronchodilators standing and PRN - taper FiO2 to keep SpO2>90% - rate control - anticoagulation - monitor urine output, creatinine DR MENDOZA
--- NOTE | 2018-07-05 16:40 | PN ---
Progress Note (short form) - Note Progress Note: on nasal canulla feels breathing is back at baseline antibiotics last dose 07/04 off steroids since 07/01 Vital Signs Period Temp Pulse Resp BP Sys/[place] Pulse Ox Last 24 Hr 97.7 F-98.5 F 84-90 16-22 110-134/63-77 94 cor-rrr lungsdecreased bs at bases abd soft, nt ext no edema CBC, BMP 07/05/18 06:35 07/04/18 06:20 Microbiology 06/24/18 21:15 Blood - Peripheral Venous Blood Culture - Final NO GROWTH AFTER 5 DAYS INCUBATION 06/24/18 21:10 Blood - Peripheral Venous Blood Culture - Final NO GROWTH AFTER 5 DAYS INCUBATION 06/24/18 11:30 Blood - Peripheral Venous Blood Culture - Final NO GROWTH AFTER 5 DAYS INCUBATION 06/24/18 11:30 Blood - Peripheral Venous Blood Culture - Final NO GROWTH AFTER 5 DAYS INCUBATION 06/26/18 14:00 Nares - Mrsa Screen - Left MRSA Screen - Final NO MRSA ISOLATED 06/26/18 14:00 Nares - Mrsa Screen - Right MRSA Screen - Final NO MRSA ISOLATED 06/25/18 07:00 Sputum - Expectorated Gram Stain - Final 06/25/18 07:00 Sputum - Expectorated Sputum Culture - Final NORMAL RESPIRATORY JOANNA 06/24/18 19:50 Urine - Urine Clean Catch Legionella Antigen - Final 06/24/18 19:50 Urine - Urine Clean Catch Streptococcus pneumoniae Antigen ( M - Final 06/24/18 13:51 Urine - Urine Clean Catch Urine Culture - Final NO GROWTH OBTAINED cxray unchanged a/p resp failure with hypoxia-back at baseline RLL pneumonia- s/p 10 days cefepime- d/nadege this am copd exacerbation Penicillin allergy ckd afib prolonged Qtc leukocytosis- ?secondary to steroids, clinically pneumonia appears improved with decreaseding oxygen requirements Problem List - Problems (1) Respiratory failure with hypoxia Code(s): J96.91 - RESPIRATORY FAILURE, UNSPECIFIED WITH HYPOXIA (2) Pneumonia Code(s): J18.9 - PNEUMONIA, UNSPECIFIED ORGANISM (3) COPD exacerbation Code(s): J44.1 - CHRONIC OBSTRUCTIVE PULMONARY DISEASE W (ACUTE) EXACERBATION (4) CKD (chronic kidney disease) Code(s): N18.9 - CHRONIC KIDNEY DISEASE, UNSPECIFIED Qualifiers: Chronic kidney disease stage: unspecified stage Qualified Code(s): N18.9 - Chronic kidney disease, unspecified (5) Penicillin allergy Code(s): Z88.0 - ALLERGY STATUS TO PENICILLIN
--- NOTE | 2018-07-05 17:04 | CONSULT ---
Consultation: REQUESTING PROVIDER: CONSULT REQUEST: We have been asked to medically evaluate this patient for ( leukocytosis). HISTORY OF PRESENT ILLNESS: Patient is a 82 year old male was sent from [facility] for worsening SOB. Patient reports that since many years he has had SOB due to COPD, has been on Oxygen intermittently for 6 yrs but since October,, has been using continuously. Since few days before admission, he had SOB, worsening, associated with wheezing, cough. It was productive, yellowish sputum. Denies chest pain, palpitation, abdominal pain, nausea or vomiting. Bowel/Bladder habit normal. Bowel movement was yesterday. Sleep/Appetite normal. 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 Smoking: Quit in 1955, smoked for 15 yrs, < 1pack/day Alcohol: Occasional quit years ago Drugs: Denies REVIEW OF SYSTEMS: CONSTITUTIONAL: Absent: fever, chills, diaphoresis, generalized weakness, malaise, loss of appetite, weight change HEENT: Absent: rhinorrhea, nasal congestion, throat pain, throat swelling, difficulty swallowing, mouth swelling, ear pain, eye pain, visual changes CARDIOVASCULAR: Absent: chest pain, syncope, palpitations, irregular heart rate, lightheadedness , peripheral edema RESPIRATORY: Present: SOB, cough, wheeze Absent: orthopnea, wheezing, stridor, hemoptysis GASTROINTESTINAL: Absent: abdominal pain, abdominal distension, nausea, vomiting, diarrhea, constipation, melena, hematochezia GENITOURINARY: Absent: dysuria, frequency, urgency, hesitancy, hematuria, flank pain, genital pain MUSCULOSKELETAL: Absent: myalgia, arthralgia, joint swelling, back pain, neck pain SKIN: Absent: rash, itching, pallor HEMATOLOGIC/IMMUNOLOGIC: Absent: easy bleeding, easy bruising, lymphadenopathy, frequent infections ENDOCRINE: Absent: unexplained weight gain, unexplained weight loss, heat intolerance, cold intolerance NEUROLOGIC: Absent: headache, focal weakness or paresthesias, dizziness, unsteady gait, seizure, mental status changes, bladder or bowel incontinence PSYCHIATRIC: Absent: anxiety, depression, suicidal or homicidal ideation, hallucinations. PHYSICAL EXAMINATION Vital Signs - 24 hr 07/04/18 07/04/18 07/04/18 18:26 21:00 22:00 Temperature 98.2 F 98.5 F Pulse Rate 89 84 Respiratory 22 20 20 Rate Blood Pressure 124/66 132/77 O2 Sat by Pulse 94 L Oximetry (%) 07/05/18 07/05/18 07/05/18 02:00 06:00 09:00 Temperature 97.7 F 98.0 F 97.7 F Pulse Rate 86 85 90 Respiratory 20 20 16 Rate Blood Pressure 130/77 110/63 122/75 O2 Sat by Pulse Oximetry (%) 07/05/18 14:00 Temperature Pulse Rate 84 Respiratory 18 Rate Blood Pressure 134/68 O2 Sat by Pulse Oximetry (%) GENERAL: Elderly male, Awake, alert, and fully oriented, in no acute distress. HEAD: Normal with no signs of trauma. EYES: EOM intact, pallor or icterus. EARS, NOSE, THROAT: Ears normal. Dry mucous membranes. NECK: Supple. LUNGS: B/L coarse breath sounds equal. No wheeze. No accessory muscle use. HEART: Irregularly irregular rate and rhythm, normal S1 and S2 with systolic murmur. ABDOMEN: Soft, nontender, no hepatomegaly or splenomegaly. MUSCULOSKELETAL: Normal range of motion at all joints. No bony deformities or tenderness. No CVA tenderness. UPPER EXTREMITIES: 2+ pulses, warm, well-perfused. No cyanosis. No clubbing. Cap refill <2 seconds. No peripheral edema. LOWER EXTREMITIES: 2+ pulses, warm, well-perfused. No calf tenderness. No peripheral edema. NEUROLOGICAL: No facial droop. Normal speech.Gait not observed. PSYCHIATRIC: Cooperative. Good eye contact. Appropriate mood and affect. SKIN: Warm, dry, normal turgor, no rashes or lesions noted. Laboratory Results - last 24 hr 07/05/18 06:35 WBC 23.3 H RBC 3.82 L Hgb 9.9 L Hct 30.8 L MCV 80.7 MCH 26.0 MCHC 32.3 RDW 19.6 H Plt Count 360 D MPV 6.9 L Absolute Neuts (auto) 20.5 H Neutrophils % 87.7 H Neutrophils % (Manual) 87.9 H Band Neutrophils % 0.0 Lymphocytes % 3.1 L Lymphocytes % (Manual) 1.0 L D Monocytes % 7.0 Monocytes % (Manual) 4 Eosinophils % 1.9 Eosinophils % (Manual) 0.0 D Basophils % 0.3 Basophils % (Manual) 0.0 Myelocytes % (Man) 7 H D Promyelocytes % (Man) 0 Blast Cells % (Manual) 0 Nucleated RBC % 0 Metamyelocytes 0 Hypochromia 0 Platelet Estimate Normal Polychromasia 0 Poikilocytosis 0 Anisocytosis 1+ Microcytosis 1+ Active Medications Generic Name Dose Route Start Last Admin Trade Name Freq PRN Reason Stop Dose Admin Acetaminophen 650 mg 06/24/18 14:46 Tylenol - PO Q6H PRN PAIN LEVEL 1-5 Albuterol Sulfate 1 amp 06/26/18 11:30 07/04/18 11:52 Ventolin 0.083% Nebulizer Soln - NEB 1 amp Q6H PRN Administration SHORT OF BREATH/WHEEZING Apixaban 2.5 mg 06/24/18 22:00 07/05/18 10:02 Eliquis - PO 2.5 mg BID JAGDEEP Administration Atorvastatin Calcium 10 mg 06/25/18 22:00 07/04/18 21:34 Lipitor - PO 10 mg HS [facility] Administration Budesonide/Formoterol Fumarate 2 puff 06/24/18 22:00 07/05/18 10:03 Symbicort 80/4.5mcg - IH 2 puff BID JAGDEEP Administration Chlorhexidine Gluconate 1 applic 06/24/18 22:00 07/04/18 21:32 Hibiclens For Decolonization - TP Not Given HS [facility] Hydralazine HCl 50 mg 06/30/18 14:00 07/05/18 14:51 Apresoline - PO 50 mg TID JAGDEEP Administration Levothyroxine Sodium 75 mcg 06/25/18 07:00 07/05/18 06:01 Synthroid - PO 75 mcg DAILY@0700 JAGDEEP Administration Multivitamins/Minerals/Vitamin C 1 tab 06/25/18 10:00 07/05/18 10:03 Tab-A-Vit - PO 1 tab DAILY JAGDEEP Administration Nifedipine 90 mg 06/28/18 10:00 07/05/18 10:02 Procardia Xl - PO 90 mg DAILY JAGDEEP Administration Pantoprazole Sodium 40 mg 06/28/18 10:00 07/05/18 10:02 Protonix - PO 40 mg DAILY JAGDEEP Administration Patient is a 82 year old male was sent from [facility] for worsening SOB ASSESSMENT RLL pneumonia Leukocytosis Normocytic anemia COPD not in exacerbation Atrial fibrillation-rate controlled Hypertension- controlled Hypothyroidism Anxiety PLAN Leukocytosis: Patient was admitted here for the treatment of Pneumonia. Has been receiving Antibiotics. IV Steroids were recently tapered. WBC is 23.3, has been progressively rising since admission. It could be due to prolonged use of Steroids or use of antibiotics. Currently off antibiotics and steroids. Monitor CBC Will order SUNDAY-2, flow cytometry, bcr abl. LDH and uric acid. Normocytic anemia H/H 9.9/30.8, no signs of bleeding Will send for Iron studies. Plan of care explained to the patient. He verbalized understanding. Case discussed with Dr. Tillman. Thank you for the consultative opportunity. Visit type - Emergency Visit Emergency Visit: Yes ED Registration Date: 06/24/18 Care time: The patient presented to the Emergency Department on the above date and was hospitalized for further evaluation of their emergent condition. - New Patient This patient is new to me today: Yes Date on this admission: 07/05/18 - Critical Care Critical Care patient: No
[2018-07-05] MEDS: CHLORHEXIDINE GLUCONATE 4% CLEANSER FOR DECOLONIZATION TP SCH (22:17)
[2018-07-05] MEDS: ATORVASTATIN CA 10 MG TABLET (FP) PO SCH (22:18)
[2018-07-06] MEDS: LEVOTHYROXINE NA 75 MCG TABLET (FP) PO SCH (06:44)
[2018-07-06] MEDS: hydrALAZINE HCL 50 MG TABLET (FP) PO SCH ×3 (06:44→21:32)
[2018-07-06 07:44] LABS: URIC ACID 5.7 mg/dL (2.6-7.2)
[2018-07-06] MEDS ORDERED: PT OWN MED DRAWER 7, Y5N ONE ×2 (11:11→21:28)
[2018-07-06] MEDS: PANTOPRAZOLE 40 MG TABLET (FP) PO SCH (11:16)
[2018-07-06] MEDS: APIXABAN 2.5 MG TABLET PO SCH ×2 (11:17→21:32)
[2018-07-06] MEDS: BUDESONIDE/FORMETEROL FUMARATE 80/4.5 mcg INHALER IH SCH ×2 (11:17→21:33)
[2018-07-06] MEDS: NIFEdipine E.R. 90 MG TABLET (FP) PO SCH (11:17)
[2018-07-06] MEDS: MULTIVITAMINS (DAILY MVI) TABLET (FP) PO SCH (11:17)
--- NOTE | 2018-07-06 11:19 | PN ---
Progress Note (short form) - Note Progress Note: pt seen/ examined chart reviewed sitting in chair coughing sob + on 2 litre- 89 percent anxious made him to lie down -- increased oxygen 3 l- sat 96 percent feels much better Vital Signs Temp 97.9 F 07/06/18 06:00 Pulse 84 07/06/18 06:00 Resp 18 07/06/18 06:00 BP 120/68 07/06/18 06:00 Pulse Ox 95 07/05/18 21:00 Intake & Output 07/05/18 07/05/18 07/06/18 11:59 23:59 11:59 Intake Total 100 600 Balance 100 600 Weight 174 lb 14.4 oz Intake: IVPB 100 Oral 600 Other: Voiding Method Toilet Toilet # Unmeasured Voids Void 3 3 Bowel Movement Yes No # Bowel Movements 1 Weight Measurement Method Standing Scale Active Medications Acetaminophen (Tylenol -) 650 mg PO Q6H PRN PRN Reason: PAIN LEVEL 1-5 Albuterol Sulfate (Ventolin 0.083% Nebulizer Soln -) 1 amp NEB Q6H PRN PRN Reason: SHORT OF BREATH/WHEEZING Last Admin: 07/04/18 11:52 Dose: 1 amp Apixaban (Eliquis -) 2.5 mg PO BID [facility] Last Admin: 07/06/18 11:17 Dose: 2.5 mg Atorvastatin Calcium (Lipitor -) 10 mg PO [facility] Last Admin: 07/05/18 22:18 Dose: 10 mg Budesonide/Formoterol Fumarate (Symbicort 80/4.5mcg -) 2 puff IH BID [facility] Last Admin: 07/06/18 11:17 Dose: 2 puff Chlorhexidine Gluconate (Hibiclens For Decolonization -) 1 applic TP [facility] Last Admin: 07/05/18 22:17 Dose: Not Given Hydralazine HCl (Apresoline -) 50 mg PO TID [facility] Last Admin: 07/06/18 06:44 Dose: 50 mg Levothyroxine Sodium (Synthroid -) 75 mcg PO DAILY@0700 [facility] Last Admin: 07/06/18 06:44 Dose: 75 mcg Multivitamins/Minerals/Vitamin C (Tab-A-Vit -) 1 tab PO DAILY [facility] Last Admin: 07/06/18 11:17 Dose: 1 tab Nifedipine (Procardia Xl -) 90 mg PO DAILY [facility] Last Admin: 07/06/18 11:17 Dose: 90 mg Pantoprazole Sodium (Protonix -) 40 mg PO DAILY [facility] Last Admin: 07/06/18 11:16 Dose: 40 mg CBC, BMP 07/05/18 06:35 07/04/18 06:20 Physical Examination Constitutional: Yes: alert and awake. Eyes: Yes: Conjunctiva Clear Neck: Yes: Supple, Other (no jvd) Cardiovascular: Yes: Pulse Irregular Respiratory: Yes: Bilateral rhonchi Gastrointestinal: Yes: Soft/ non tender . bowel sound present, no edema Neurological: Yes: Alert Psychiatric: Yes: Alert Assessment/Plan overall condition --stable Continue present care Abx- dced off steroids wbc elevated-- non toxic appearance- persistent- received steroids? leukemoid reaction due to infection-- Hematology consult noted increase oxygen nebulizer treatment Monitor bp--better Continue other meds discussed with nursing staff also. will follow Problem List - Problems (1) Respiratory failure with hypoxia Code(s): J96.91 - RESPIRATORY FAILURE, UNSPECIFIED WITH HYPOXIA (2) Chronic diastolic CHF (congestive heart failure) Code(s): I50.32 - CHRONIC DIASTOLIC (CONGESTIVE) HEART FAILURE (3) HTN (hypertension) Code(s): I10 - ESSENTIAL (PRIMARY) HYPERTENSION Qualifiers: Hypertension type: essential hypertension Qualified Code(s): I10 - Essential (primary) hypertension (4) Hypothyroidism Code(s): E03.9 - HYPOTHYROIDISM, UNSPECIFIED Qualifiers: Hypothyroidism type: unspecified Qualified Code(s): E03.9 - Hypothyroidism , unspecified (5) Paroxysmal A-fib Code(s): I48.0 - PAROXYSMAL ATRIAL FIBRILLATION
[2018-07-06] MEDS: ALBUTEROL SO4 0.083% IH SOL 2.5 MG/3 ML VIAL.NEB. NEB PRN (14:20)
--- NOTE | 2018-07-06 16:34 | PN ---
Progress Note (short form) - Note Progress Note: PULMONARY VSS/AFEBRILE complained of chest discomfort during nebulizer treatment and PT Gen: looks distressed Heart: irregular Lung: scattered basilar rales Abd: soft, nontender Ext: no edema labs/meds/notes reviewed ASSESSMENT AND PLAN: Acute on Chronic Hypoxic Respiratory Failure improving Pneumonia Severe Sepsis improving Acute Kidney Injury Acute COPD Exacerbation Acute on Chronic Diastolic Heart Failure Pulmonary HTN Atrial Flutter with RVR HTN Hyperlipidemia Hypothyroidism Chest pain - stat ekg/cycle trops - inhaled bronchodilators standing and PRN - taper FiO2 to keep SpO2>90% - rate control - continue anticoagulation - monitor urine output, creatinine Bhavya AGUIAR MD
--- NOTE | 2018-07-06 18:18 | HOSP ---
Subjective - Review of Symptoms General: Yes: Fatigue, Malaise HEENT: Yes: Other Pulmonary: Yes: Dyspnea Cardiovascular: Yes: Chest Pain Gastrointestinal: Yes: Nausea Genitourinary: Yes: Other Musculoskeletal: Yes: Muscle Weakness Neurological: Yes: Weakness Physical Examination Vital Signs: Vital Signs Temperature 97.9 F 07/06/18 06:00 Pulse Rate 84 07/06/18 06:00 Respiratory Rate 18 07/06/18 06:00 Blood Pressure 120/68 07/06/18 06:00 O2 Sat by Pulse Oximetry (%) 95 07/05/18 21:00 Constitutional: Yes: Anxious Eyes: Yes: WNL HENT: Yes: WNL Neck: Yes: Supple Cardiovascular: Yes: Pulse Irregular Respiratory: Yes: Accessory Muscle Use, Diminished, Orthopnea, SOB on Exertion, Tachypnea Gastrointestinal: Yes: Normal Bowel Sounds Edema: No Labs: CBC, BMP 07/05/18 06:35 07/04/18 06:20 Hospitalist Encounter Assessment: Called by primary RN to report that patient was having increased shortness of breath and chest pain. Patient reports he is having intermittent left chest pain that began around 4: 30pm today, non radiating accompanied with shortness of breath and nausea. States chest pain feels like "pressure" on his chest. Patient is an 82 year old male with a past medical history of COPD on 3 liter of oxygen, afib (on eliquis), ckd, hld, hypertension and hypothyroidism. Patient presented to the ED with worsening shortness of breath and fevers. He has been treated with IV antibiotics and bipap during hospitalization. EKG 06/24 shows aflutter rate of 117 with 2:1 block. ekg 07/06 shows atrial flutter with possible NSTEMI, NC. chest xray 07/06: increased congestion, left infiltrate Plan: trend troponins Monitor on tele Patient is anticoagulated with eliquis 2.5mg bid repeat ekg cardiology consulted discussed with primary MD Dr. Meza and in agreement for patient to be transferred to tele. dnr/dni Critical Care Total Critical Care Time (in minutes): 40 Critical Care Statement: The care of this patient involved high complexity decision making to prevent further life threatening deterioration of the patient 's condition and/or to evaluate & treat vital organ system(s) failure or risk of failure.
[2018-07-06 18:49] LABS: ARTERIAL BLD GAS O2 SATURATION 89.2 % (90-98.9); ARTERIAL BLOOD GAS BASE EXCESS 8.4 meq/l (-2-2); ARTERIAL BLOOD GAS PCO2 39.5 mmHg (35-45); ARTERIAL BLOOD GAS PO2 53.2 mmHg (68-100); ARTERIAL BLOOD GAS pH 7.52 (7.35-7.45)
[2018-07-06 18:50] LABS: ALLENS TEST POSITIVE
[2018-07-06] MEDS: ACETAMINOPHEN 325 MG TABLET (FP) PO PRN (19:26)
[2018-07-06] MEDS ORDERED: SODIUM CHLORIDE 1,000 ML IV SCH (19:30)
[2018-07-06] MEDS: ATORVASTATIN CA 10 MG TABLET (FP) PO SCH (21:32)
[2018-07-06] MEDS: CHLORHEXIDINE GLUCONATE 4% CLEANSER FOR DECOLONIZATION TP SCH (21:33)
--- NOTE | 2018-07-06 23:11 | PN ---
Progress Note (short form) - Note Progress Note: Patient is a 82 year old male was sent from [facility] for worsening SOB. Since few days before admission, he had SOB, worsening, associated with wheezing, cough. It was productive. 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 steroids for COPD exacerbation Unlikely primary myeloproliferative disorder check flow/JAK2/bcr;abl other differntial --? occult malignancy, atypical infections Anemia of chronic disease --CKD/COPD/pneumonia microcytic checking iron studies/ferritin will follow
[2018-07-07] MEDS: LEVOTHYROXINE NA 75 MCG TABLET (FP) PO SCH (06:40)
[2018-07-07] MEDS: hydrALAZINE HCL 50 MG TABLET (FP) PO SCH ×3 (06:40→22:03)
[2018-07-07 07:05] LABS: BASO % 0.3 % (0-2.0); EOS % 1.1 % (0-4.5); HEMATOCRIT 30.4 % (35.4-49); HEMOGLOBIN 9.9 GM/dL (11.7-16.9); LYMPH % 3.5 % (8-40); MCH 25.9 pg (25.7-33.7); MCHC 32.5 g/dl (32.0-35.9); MEAN CELL VOLUME 79.6 fl (80-96); MEAN PLT VOLUME 6.9 fl (7.5-11.1); MONO % 7.2 % (3.8-10.2); NEUT % 87.9 % (42.8-82.8); PLATELET COUNT 327 K/MM3 (134-434); RBC 3.81 M/mm3 (4.00-5.60); RDW 19.4 % (11.9-15.9); WHITE BLOOD COUNT 19.7 K/mm3 (4.0-10.0)
[2018-07-07] MEDS ORDERED: PT OWN MED DRAWER 7, Y5N ONE ×2 (07:09→10:00)
[2018-07-07 07:42] LABS: ALBUMIN 2.4 g/dl (3.4-5.0); ANION GAP 11 MMOL/L (8-16); BLOOD UREA NITROGEN 47 mg/dL (7-18); CHLORIDE 104 mmol/L (98-107); CO2 31 mmol/L (21-32); CREATININE 1.6 mg/dL (0.7-1.3); GLUCOSE,RANDOM 93 mg/dL (74-106); POTASSIUM 3.7 mmol/L (3.5-5.1); SGOT/AST 12 U/L (15-37); SGPT/ALT 27 U/L (12-78); SODIUM 146 mmol/L (136-145)
--- NOTE | 2018-07-07 07:44 | CON.CARD ---
Cardiology Consult (text) - Consultation Consultation Note: Cardiology Consult for Partha Dictated IMP: Acute on Chronic Hypoxic Respiratory Failure improving Pneumonia Severe Sepsis improving Acute Kidney Injury Acute COPD Exacerbation Acute on Chronic Diastolic Heart Failure Pulmonary HTN Atrial Flutter with RVR HTN Hyperlipidemia Hypothyroidism Chest pain, atypical symptoms. REC: 1. Supplimental O2 2. Anticoagulation, On Eliquis 3. Trend TnI 4. Would give trial Lasix with careful monitoring of renal function.
[2018-07-07 07:46] LABS: ALK PHOS 72 U/L (45-117); BILIRUBIN,TOTAL 0.5 mg/dL (0.2-1.0)
--- NOTE | 2018-07-07 09:22 | CONS ---
CARDIOLOGY CONSULTATION DATE OF CONSULTATION: 07/07/2018 The consultation is requested by Jerson Meza MD, for shortness of breath. 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 The patient was treated with IV antibiotics, and was initially in the ICU, eventually transitioning to the medical floor, when yesterday while participating in rehab, he began experiencing increasing shortness of breath and associated chest tightness. The patient states that he has these episodes periodically even at home. This morning, he feels improved, and denies active chest pain, stating that his breathing is back to baseline. He denies palpitations, presyncope, lightheadedness. He denies fevers or chills. PAST MEDICAL HISTORY: Pertinent for chronic atrial flutter, anticoagulated with Eliquis. Past medical history significant also for hypothyroidism, chronic COPD on home O2, hyperlipidemia, GERD, hypertension. ALLERGIES: He has allergies to LISINOPRIL, PENICILLIN, and ROSUVASTATIN. ACTIVE MEDICATIONS: Include Tylenol of 650 p.o. q.6 p.r.n., albuterol via nebulizer q.6 p.r.n., apixaban 2.5 p.o. b.i.d., atorvastatin 10 mg p.o. nightly, Symbicort 2 puffs via inhalation b.i.d., hydralazine 50 mg p.o. t.i.d., levothyroxine 75 mcg daily, multivitamin, nifedipine extended release 90 mg p.o. daily, and pantoprazole 40 mg p.o. daily. FAMILY HISTORY: Noncontributory to this presentation. 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 Denies smoking, but was exposed to second-hand smoke. PHYSICAL EXAMINATION: Vital signs: Afebrile over the last 48 hours with temperature 98.3, pulse 86, blood pressure ranging from 115 to 140 over 65 to 75. His O2 saturation is 94 on 3 liters. Eyes: He is anicteric. Neck: There is no JVD, no carotid bruits. Heart: Regular - in atrial flutter. Chest: Auscultation reveals rhonchi and decreased breath sounds bilaterally. Abdomen: Soft. Nontender. Extremities: No edema. DIAGNOSTIC DATA: His chest x-ray showed dense consolidation at the right base with possible underlying effusions and slight increased pulmonary vascular congestion. His EKG showed atrial flutter at 86 beats per minute with 3:1 block. LABORATORIES: CBC remarkable for a white count of 19.7, hematocrit of 30.4, and platelet count of 327. ABG done on July 06: 7.52, 39, 53 on 3 liters. Sodium yesterday 143, potassium 3.9, BUN and creatinine 59 over 1.5. CK, troponin negative x1 set yesterday, pending this morning, and a BNP which was ordered yesterday evening was significantly elevated at 4347. IMPRESSION: 1. Acute on chronic hypoxic respiratory failure, improving. 2. Pneumonia. 3. Sepsis, improving. 4. Acute kidney injury, improving. 5. Acute on chronic obstructive pulmonary disease exacerbation. 6. Acute on chronic diastolic congestive heart failure. 7. Pulmonary hypertension. 8. Permanent atrial flutter. 9. Hypertension. 10. Hyperlipidemia. 11. Hypothyroidism. 12. Atypical chest pain symptoms, in the setting of chronic obstructive pulmonary disease, chronic hypoxemia, and resolving pneumonia. RECOMMENDATIONS: 1. Supplemental O2 as needed. 2. Continue anticoagulation dose adjusted for renal function. 3. Trend troponins. 4. Trial of Lasix with careful monitoring of renal function. The patient has had an echocardiogram recently performed on June 25 showing left ventricular hypertrophy and overall normal left ventricular systolic function. He does have moderate pulmonic regurgitation and a moderately dilated right ventricle with borderline reduced LV function consistent with pulmonary hypertension; thus, his mild decompensation is due to chronic diastolic CHF with acute exacerbation, and a trial of Lasix as above would be helpful with close monitoring of his renal function. He is currently awaiting a bed on telemetry. Thank you for the consultation. Domingo Moreira MD, dictating for MD DOMINGO Green M.D. LISSET/[id number]
[2018-07-07] MEDS: BUDESONIDE/FORMETEROL FUMARATE 80/4.5 mcg INHALER IH SCH ×2 (10:14→21:29)
[2018-07-07] MEDS: MULTIVITAMINS (DAILY MVI) TABLET (FP) PO SCH (10:14)
[2018-07-07] MEDS: APIXABAN 2.5 MG TABLET PO SCH ×2 (10:14→22:03)
[2018-07-07] MEDS: NIFEdipine E.R. 90 MG TABLET (FP) PO SCH (10:14)
[2018-07-07] MEDS: FUROSEMIDE 40 MG/4 ML INJECTABLE VIAL IVPUSH SCH (10:14)
[2018-07-07] MEDS: PANTOPRAZOLE 40 MG TABLET (FP) PO SCH (10:14)
--- NOTE | 2018-07-07 11:01 | PN ---
Progress Note (short form) - Note Progress Note: Progress Note (short form) - Note Progress Note: comfortable denies pain feels well no SOB had chest pain yesterday but no complaints today Vital Signs - 24 hr 07/06/18 07/06/18 07/06/18 18:30 21:00 22:00 Temperature 97.7 F 98.3 F Pulse Rate 96 H 86 Respiratory 18 18 18 Rate Blood Pressure 140/75 115/65 O2 Sat by Pulse 94 L Oximetry (%) 07/07/18 07/07/18 07/07/18 06:00 10:00 14:00 Temperature 98.3 F 98.4 F 97.9 F Pulse Rate 122 H 95 H 100 H Respiratory 18 18 20 Rate Blood Pressure 140/86 116/60 144/75 O2 Sat by Pulse Oximetry (%) Current Medications Generic Name Dose Route Start Last Admin Trade Name Freq PRN Reason Stop Dose Admin Acetaminophen 650 mg 06/24/18 14:46 07/06/18 19:26 Tylenol - PO 650 mg Q6H PRN Administration PAIN LEVEL 1-5 Albuterol Sulfate 1 amp 06/26/18 11:30 07/07/18 11:25 Ventolin 0.083% Nebulizer Soln - NEB 1 amp Q6H PRN Administration SHORT OF BREATH/WHEEZING Apixaban 2.5 mg 06/24/18 22:00 07/07/18 10:14 Eliquis - PO 2.5 mg BID [facility]AG[facility] Administration Atorvastatin Calcium 10 mg 06/25/18 22:00 07/06/18 21:32 Lipitor - PO 10 mg HS [facility]AG[facility] Administration Budesonide/Formoterol Fumarate 2 puff 06/24/18 22:00 07/07/18 10:14 Symbicort 80/4.5mcg - IH 2 puff BID [facility]AG[facility] Administration Chlorhexidine Gluconate 1 applic 06/24/18 22:00 07/06/18 21:33 Hibiclens For Decolonization - TP Not Given HS [facility]AG[facility] Furosemide 40 mg 07/07/18 10:00 07/07/18 10:14 Lasix Injection - IVPUSH 40 mg DAILY [facility]AG[facility] Administration Hydralazine HCl 50 mg 06/30/18 14:00 07/07/18 13:38 Apresoline - PO 50 mg TID [facility]AG[facility] Administration Levothyroxine Sodium 75 mcg 06/25/18 07:00 07/07/18 06:40 Synthroid - PO 75 mcg DAILY@0700 [facility]AG[facility] Administration Multivitamins/Minerals/Vitamin C 1 tab 06/25/18 10:00 07/07/18 10:14 Tab-A-Vit - PO 1 tab DAILY [facility] Administration Nifedipine 90 mg 06/28/18 10:00 07/07/18 10:14 Procardia Xl - PO 90 mg DAILY [facility]AG[facility] Administration Pantoprazole Sodium 40 mg 06/28/18 10:00 07/07/18 10:14 Protonix - PO 40 mg DAILY [facility] Administration Laboratory Results - last 24 hr 07/06/18 07/06/18 07/06/18 17:45 17:45 18:29 WBC RBC Hgb Hct MCV MCH MCHC RDW Plt Count MPV Absolute Neuts (auto) Neutrophils % Neutrophils % (Manual) Band Neutrophils % Lymphocytes % Lymphocytes % (Manual) Monocytes % Monocytes % (Manual) Eosinophils % Eosinophils % (Manual) Basophils % Basophils % (Manual) Myelocytes % (Man) Promyelocytes % (Man) Blast Cells % (Manual) Nucleated RBC % Metamyelocytes Platelet Estimate Anticoagulation Therapy No Result Required. Puncture Site Right radial ABG pH 7.52 H ABG pCO2 at Pt Temp 39.5 ABG pO2 at Pt Temp 53.2 L D ABG HCO3 31.9 H ABG O2 Sat (Measured) 89.2 L ABG O2 Content 13.3 L ABG Base Excess 8.4 H Vito Test Positive O2 Delivery Device Nasal cannula Oxygen Flow Rate 3l Vent Mode No Result Required. Vent Rate No Result Required. Mechanical Rate No Result Required. Pressure Support Vent No Result Required. Sodium Potassium Chloride Carbon Dioxide Anion Gap BUN Creatinine Creat Clearance w eGFR Random Glucose Calcium Total Bilirubin AST ALT Alkaline Phosphatase Creatine Kinase 44 Troponin I < 0.02 B-Natriuretic Peptide 4347.55 H Total Protein Albumin 07/07/18 07/07/18 07/07/18 06:30 06:30 06:30 WBC 19.7 H RBC 3.81 L Hgb 9.9 L Hct 30.4 L MCV 79.6 L MCH 25.9 MCHC 32.5 RDW 19.4 H Plt Count 327 MPV 6.9 L Absolute Neuts (auto) 17.3 H Neutrophils % 87.9 H Neutrophils % (Manual) 89.6 H Band Neutrophils % 0.0 Lymphocytes % 3.5 L Lymphocytes % (Manual) 4.2 L D Monocytes % 7.2 Monocytes % (Manual) 3 L Eosinophils % 1.1 Eosinophils % (Manual) 3.1 D Basophils % 0.3 Basophils % (Manual) 0.0 Myelocytes % (Man) 0 D Promyelocytes % (Man) 0 Blast Cells % (Manual) 0 Nucleated RBC % 0 Metamyelocytes 0 Platelet Estimate Adequate Anticoagulation Therapy Puncture Site ABG pH ABG pCO2 at Pt Temp ABG pO2 at Pt Temp ABG HCO3 ABG O2 Sat (Measured) ABG O2 Content ABG Base Excess Vito Test O2 Delivery Device Oxygen Flow Rate Vent Mode Vent Rate Mechanical Rate Pressure Support Vent Sodium 146 H Potassium 3.7 Chloride 104 Carbon Dioxide 31 Anion Gap 11 BUN 47 H Creatinine 1.6 H Creat Clearance w eGFR 41.39 Random Glucose 93 D Calcium 8.0 L Total Bilirubin 0.5 AST 12 L ALT 27 D Alkaline Phosphatase 72 Creatine Kinase Troponin I < 0.02 Cancelled B-Natriuretic Peptide Total Protein 6.0 L Albumin 2.4 L Physical Examination Constitutional: Yes: alert and awake. comfortable. Eyes: Yes: Conjunctiva Clear Neck: Yes: Supple, Other (no jvd) Cardiovascular: Yes: Pulse Irregular Respiratory: Yes: Bilateral rales at bases Gastrointestinal: Yes: Soft/ non tender . bowel sound present, no edema Neurological: Yes: Alert Psychiatric: Yes: Alert Assessment/Plan overall condition ---better Continue present care Abx- dc off steroids wbc trending down-- hematology eval noted Cardiology eval appreciated monitor nebulizer treatment Monitor bp--better Continue other meds discussed with nursing staff also Problem List - Problems (1) Respiratory failure with hypoxia Code(s): J96.91 - RESPIRATORY FAILURE, UNSPECIFIED WITH HYPOXIA (2) Chronic diastolic CHF (congestive heart failure) Code(s): I50.32 - CHRONIC DIASTOLIC (CONGESTIVE) HEART FAILURE (3) HTN (hypertension) Code(s): I10 - ESSENTIAL (PRIMARY) HYPERTENSION Qualifiers: Hypertension type: essential hypertension Qualified Code(s): I10 - Essential (primary) hypertension (4) Hypothyroidism Code(s): E03.9 - HYPOTHYROIDISM, UNSPECIFIED Qualifiers: Hypothyroidism type: unspecified Qualified Code(s): E03.9 - Hypothyroidism , unspecified (5) Paroxysmal A-fib Code(s): I48.0 - PAROXYSMAL ATRIAL FIBRILLATION
[2018-07-07] MEDS: ALBUTEROL SO4 0.083% IH SOL 2.5 MG/3 ML VIAL.NEB. NEB PRN ×2 (11:25→21:38)
--- NOTE | 2018-07-07 12:35 | PN ---
Progress Note (short form) - Note Progress Note: PULMONARY VSS/AFEBRILE no cp today Gen: stable Heart: irregular Lung: scattered basilar rales Abd: soft, nontender Ext: no edema labs/meds/notes reviewed Cardio consult noted ASSESSMENT AND PLAN: Acute on Chronic Hypoxic Respiratory Failure improving Pneumonia Severe Sepsis improving Acute Kidney Injury Acute COPD Exacerbation Acute on Chronic Diastolic Heart Failure Pulmonary HTN Atrial Flutter with RVR HTN Hyperlipidemia Hypothyroidism Chest pain - trops negative - inhaled bronchodilators standing and PRN - taper FiO2 to keep SpO2>90% - rate control - continue anticoagulation - monitor urine output, creatinine Bhavya AGUIAR MD
[2018-07-07 12:39] LABS: PLATELET ESTIMATE ADEQUATE
[2018-07-07] MEDS: ACETAMINOPHEN 325 MG TABLET (FP) PO PRN (21:29)
[2018-07-07] MEDS: CHLORHEXIDINE GLUCONATE 4% CLEANSER FOR DECOLONIZATION TP SCH (22:04)
[2018-07-07] MEDS: ATORVASTATIN CA 10 MG TABLET (FP) PO SCH (22:04)
[2018-07-08] MEDS: ACETAMINOPHEN 325 MG TABLET (FP) PO PRN (04:37)
[2018-07-08] MEDS: LEVOTHYROXINE NA 75 MCG TABLET (FP) PO SCH (06:13)
[2018-07-08] MEDS: hydrALAZINE HCL 50 MG TABLET (FP) PO SCH ×3 (06:13→21:45)
[2018-07-08 06:47] LABS: BASO % 0.4 % (0-2.0); EOS % 0.9 % (0-4.5); HEMOGLOBIN 9.8 GM/dL (11.7-16.9); LYMPH % 3.6 % (8-40); MCH 25.5 pg (25.7-33.7); MCHC 31.8 g/dl (32.0-35.9); MEAN CELL VOLUME 80.2 fl (80-96); MEAN PLT VOLUME 7.1 fl (7.5-11.1); MONO % 7.4 % (3.8-10.2); NEUT % 87.7 % (42.8-82.8); PLATELET COUNT 310 K/MM3 (134-434); RBC 3.86 M/mm3 (4.00-5.60); WHITE BLOOD COUNT 21.1 K/mm3 (4.0-10.0)
[2018-07-08 07:33] LABS: ANION GAP 12 MMOL/L (8-16); BLOOD UREA NITROGEN 46 mg/dL (7-18); CHLORIDE 103 mmol/L (98-107); CO2 31 mmol/L (21-32); CREATININE 1.6 mg/dL (0.7-1.3); GLUCOSE,RANDOM 97 mg/dL (74-106); POTASSIUM 3.4 mmol/L (3.5-5.1); SODIUM 146 mmol/L (136-145)
[2018-07-08] MEDS: ALBUTEROL SO4 0.083% IH SOL 2.5 MG/3 ML VIAL.NEB. NEB PRN ×2 (08:40→21:05)
--- NOTE | 2018-07-08 09:22 | PN ---
Progress Note, Physician Chief Complaint: TELE: AF between 80-100bpm; 3 beats of NSVT Still having intermittent SOB. Denies CP. - Current Medication List Current Medications: Active Medications Acetaminophen (Tylenol -) 650 mg PO Q6H PRN PRN Reason: PAIN LEVEL 1-5 Last Admin: 07/08/18 04:37 Dose: 650 mg Albuterol Sulfate (Ventolin 0.083% Nebulizer Soln -) 1 amp NEB Q6H PRN PRN Reason: SHORT OF BREATH/WHEEZING Last Admin: 07/07/18 21:38 Dose: 1 amp Apixaban (Eliquis -) 2.5 mg PO BID [facility] Last Admin: 07/07/18 22:03 Dose: 2.5 mg Atorvastatin Calcium (Lipitor -) 10 mg PO HS [facility] Last Admin: 07/07/18 22:04 Dose: 10 mg Budesonide/Formoterol Fumarate (Symbicort 80/4.5mcg -) 2 puff IH BID [facility] Last Admin: 07/07/18 21:29 Dose: 2 puff Chlorhexidine Gluconate (Hibiclens For Decolonization -) 1 applic TP [facility] Last Admin: 07/07/18 22:04 Dose: Not Given Furosemide (Lasix Injection -) 40 mg IVPUSH DAILY [facility] Last Admin: 07/07/18 10:14 Dose: 40 mg Hydralazine HCl (Apresoline -) 50 mg PO TID [facility] Last Admin: 07/08/18 06:13 Dose: 50 mg Levothyroxine Sodium (Synthroid -) 75 mcg PO DAILY@0700 [facility] Last Admin: 07/08/18 06:13 Dose: 75 mcg Multivitamins/Minerals/Vitamin C (Tab-A-Vit -) 1 tab PO DAILY [facility] Last Admin: 07/07/18 10:14 Dose: 1 tab Nifedipine (Procardia Xl -) 90 mg PO DAILY [facility] Last Admin: 07/07/18 10:14 Dose: 90 mg Pantoprazole Sodium (Protonix -) 40 mg PO DAILY [facility] Last Admin: 07/07/18 10:14 Dose: 40 mg - Objective Vital Signs: Vital Signs Temperature 97.9 F 07/08/18 05:00 Pulse Rate 88 07/08/18 05:00 Respiratory Rate 2 L 07/08/18 05:00 Blood Pressure 125/74 07/08/18 05:00 O2 Sat by Pulse Oximetry (%) 92 L 07/07/18 20:35 Constitutional: Yes: No Distress Cardiovascular: Yes: Pulse Irregular Respiratory: Yes: Other (Decreased) Gastrointestinal: Yes: Soft Edema: No Neurological: Yes: Alert Labs: CBC, BMP 07/08/18 05:30 07/08/18 05:30 INR, PTT INR 2.08 (0.83-1.09) H 06/24/18 11:30 - ....Imaging EKG: Image Reviewed Assessment/Plan IMP: Acute on Chronic Hypoxic Respiratory Failure improving Pneumonia Severe Sepsis improving Acute Kidney Injury Acute COPD Exacerbation Acute on Chronic Diastolic Heart Failure Pulmonary HTN Atrial Flutter with RVR HTN Hyperlipidemia Hypothyroidism Chest pain, atypical symptoms. REC: 1. Supplimental O2 2. Anticoagulation, On Eliquis 3. Serial TnIs negative, markedly elevated BNP. 4. Continue Lasix with daily monitoring of renal fxn and electrolytes: suppliment K+ Coverage for Dr. Chavis
[2018-07-08] MEDS ORDERED: POTASSIUM CHLORIDE TABS 20 MEQ TABLET.ER (FP) PO ONE (09:26)
[2018-07-08] MEDS: BUDESONIDE/FORMETEROL FUMARATE 80/4.5 mcg INHALER IH SCH ×2 (10:15→21:47)
[2018-07-08] MEDS: MULTIVITAMINS (DAILY MVI) TABLET (FP) PO SCH (10:15)
[2018-07-08] MEDS: NIFEdipine E.R. 90 MG TABLET (FP) PO SCH (10:17)
[2018-07-08] MEDS: FUROSEMIDE 40 MG/4 ML INJECTABLE VIAL IVPUSH SCH (10:17)
[2018-07-08] MEDS: APIXABAN 2.5 MG TABLET PO SCH ×2 (10:17→21:45)
[2018-07-08] MEDS: PANTOPRAZOLE 40 MG TABLET (FP) PO SCH (10:17)
[2018-07-08 10:40] LABS: ANISOCYTOSIS 1+; MACROCYTOSIS 0; PLATELET ESTIMATE NORMAL
--- NOTE | 2018-07-08 11:31 | PN ---
Progress Note (short form) - Note Progress Note: Progress Note (short form) - Note Progress Note: uncomfortable denies pain has sob today Vital Signs - 24 hr 07/07/18 07/07/18 07/07/18 17:00 20:35 21:00 Temperature 97.5 F L 97.9 F Pulse Rate 116 H 96 H Respiratory 23 23 23 Rate Blood Pressure 146/66 133/73 O2 Sat by Pulse 92 L Oximetry (%) 07/08/18 07/08/18 07/08/18 01:00 05:00 09:00 Temperature 98 F 97.9 F 97.8 F Pulse Rate 95 H 88 107 H Respiratory 20 2 L 24 Rate Blood Pressure 123/71 125/74 125/71 O2 Sat by Pulse 94 L Oximetry (%) 07/08/18 14:00 Temperature 98.2 F Pulse Rate 107 H Respiratory 21 Rate Blood Pressure 132/75 O2 Sat by Pulse Oximetry (%) Current Medications Generic Name Dose Route Start Last Admin Trade Name Freq PRN Reason Stop Dose Admin Acetaminophen 650 mg 06/24/18 14:46 07/08/18 04:37 Tylenol - PO 650 mg Q6H PRN Administration PAIN LEVEL 1-5 Albuterol Sulfate 1 amp 06/26/18 11:30 07/08/18 08:40 Ventolin 0.083% Nebulizer Soln - NEB 1 amp Q6H PRN Administration SHORT OF BREATH/WHEEZING Apixaban 2.5 mg 06/24/18 22:00 07/08/18 10:17 Eliquis - PO 2.5 mg BID JAGDEEP Administration Atorvastatin Calcium 10 mg 06/25/18 22:00 07/07/18 22:04 Lipitor - PO 10 mg HS JAGDEEP Administration Budesonide/Formoterol Fumarate 2 puff 06/24/18 22:00 07/08/18 10:15 Symbicort 80/4.5mcg - IH 2 puff BID JAGDEEP Administration Chlorhexidine Gluconate 1 applic 06/24/18 22:00 07/07/18 22:04 Hibiclens For Decolonization - TP Not Given HS JAGDEEP Furosemide 40 mg 07/07/18 10:00 07/08/18 10:17 Lasix Injection - IVPUSH 40 mg DAILY JAGDEEP Administration Hydralazine HCl 50 mg 06/30/18 14:00 07/08/18 14:20 Apresoline - PO 50 mg TID JAGDEEP Administration Levothyroxine Sodium 75 mcg 06/25/18 07:00 07/08/18 06:13 Synthroid - PO 75 mcg DAILY@0700 JAGDEEP Administration Multivitamins/Minerals/Vitamin C 1 tab 06/25/18 10:00 07/08/18 10:15 Tab-A-Vit - PO 1 tab DAILY JAGDEEP Administration Nifedipine 90 mg 06/28/18 10:00 07/08/18 10:17 Procardia Xl - PO 90 mg DAILY JAGDEEP Administration Pantoprazole Sodium 40 mg 06/28/18 10:00 07/08/18 10:17 Protonix - PO 40 mg DAILY JAGDEEP Administration Laboratory Results - last 24 hr 07/08/18 07/08/18 05:30 05:30 WBC 21.1 H RBC 3.86 L Hgb 9.8 L Hct 31.0 L MCV 80.2 MCH 25.5 L MCHC 31.8 L RDW 19.0 H Plt Count 310 MPV 7.1 L Absolute Neuts (auto) 18.5 H Neutrophils % 87.7 H Neutrophils % (Manual) 90.9 H Band Neutrophils % 0.0 Lymphocytes % 3.6 L Lymphocytes % (Manual) 5.1 L D Monocytes % 7.4 Monocytes % (Manual) 3 L Eosinophils % 0.9 Eosinophils % (Manual) 0.0 D Basophils % 0.4 Basophils % (Manual) 0.0 Myelocytes % (Man) 0 Promyelocytes % (Man) 0 Blast Cells % (Manual) 0 Nucleated RBC % 0 Metamyelocytes 1 D Hypochromia 0 Platelet Estimate Normal Polychromasia 1+ Poikilocytosis 0 Anisocytosis 1+ Microcytosis 1+ Macrocytosis 0 Sodium 146 H Potassium 3.4 L Chloride 103 Carbon Dioxide 31 Anion Gap 12 BUN 46 H Creatinine 1.6 H Creat Clearance w eGFR 41.39 Random Glucose 97 Calcium 8.0 L Physical Examination Constitutional: Yes: alert and awake. comfortable. Eyes: Yes: Conjunctiva Clear Neck: Yes: Supple, Other (no jvd) Cardiovascular: Yes: Pulse Irregular Respiratory: Yes: Bilateral rales at bases Gastrointestinal: Yes: Soft/ non tender . bowel sound present, no edema Neurological: Yes: Alert Psychiatric: Yes: Alert Assessment/Plan overall condition ---better Continue present care Abx- dc off steroids wbc elevated iv lasix replace potassium Cardiology eval appreciated monitor nebulizer treatment Monitor bp--better Continue other meds discussed with nursing staff also Problem List - Problems (1) Respiratory failure with hypoxia Code(s): J96.91 - RESPIRATORY FAILURE, UNSPECIFIED WITH HYPOXIA (2) Chronic diastolic CHF (congestive heart failure) Code(s): I50.32 - CHRONIC DIASTOLIC (CONGESTIVE) HEART FAILURE (3) HTN (hypertension) Code(s): I10 - ESSENTIAL (PRIMARY) HYPERTENSION Qualifiers: Hypertension type: essential hypertension Qualified Code(s): I10 - Essential (primary) hypertension (4) Hypothyroidism Code(s): E03.9 - HYPOTHYROIDISM, UNSPECIFIED Qualifiers: Hypothyroidism type: unspecified Qualified Code(s): E03.9 - Hypothyroidism , unspecified (5) Paroxysmal A-fib Code(s): I48.0 - PAROXYSMAL ATRIAL FIBRILLATION
[2018-07-08] MEDS: CHLORHEXIDINE GLUCONATE 4% CLEANSER FOR DECOLONIZATION TP SCH (21:45)
[2018-07-08] MEDS: ATORVASTATIN CA 10 MG TABLET (FP) PO SCH (21:45)
[2018-07-09] MEDS: LEVOTHYROXINE NA 75 MCG TABLET (FP) PO SCH (06:07)
[2018-07-09] MEDS: hydrALAZINE HCL 50 MG TABLET (FP) PO SCH ×3 (06:07→21:54)
[2018-07-09 08:04] LABS: ANION GAP 7 MMOL/L (8-16); BLOOD UREA NITROGEN 51 mg/dL (7-18); CALCIUM 8.1 mg/dL (8.5-10.1); CHLORIDE 104 mmol/L (98-107); CO2 37 mmol/L (21-32); CREATININE 1.8 mg/dL (0.7-1.3); GLUCOSE,RANDOM 98 mg/dL (74-106); MAGNESIUM 2.5 mg/dL (1.8-2.4); POTASSIUM 3.8 mmol/L (3.5-5.1); SODIUM 148 mmol/L (136-145)
--- NOTE | 2018-07-09 08:56 | PN ---
Progress Note, Physician History of Present Illness: Patient is a 82 year old male was sent from [facility] for worsening SOB. Patient reports that since many years he has had SOB due to COPD, has been on Oxygen intermittently for 6 yrs but since October,, has been using continuously. Since few days before admission, he had SOB, worsening, associated with wheezing, cough. It was productive, yellowish sputum. Denies chest pain, palpitation, abdominal pain, nausea or vomiting. Bowel/Bladder habit normal. Bowel movement was yesterday. Sleep/Appetite normal. 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 Smoking: Quit in 1955, smoked for 15 yrs, < 1pack/day Alcohol: Occasional quit years ago Drugs: Denies - Current Medication List Current Medications: Active Medications Acetaminophen (Tylenol -) 650 mg PO Q6H PRN PRN Reason: PAIN LEVEL 1-5 Last Admin: 07/08/18 04:37 Dose: 650 mg Albuterol Sulfate (Ventolin 0.083% Nebulizer Soln -) 1 amp NEB Q6H PRN PRN Reason: SHORT OF BREATH/WHEEZING Last Admin: 07/08/18 21:05 Dose: 1 amp Apixaban (Eliquis -) 2.5 mg PO BID [facility] Last Admin: 07/08/18 21:45 Dose: 2.5 mg Atorvastatin Calcium (Lipitor -) 10 mg PO HS [facility] Last Admin: 07/08/18 21:45 Dose: 10 mg Budesonide/Formoterol Fumarate (Symbicort 80/4.5mcg -) 2 puff IH BID [facility] Last Admin: 07/08/18 21:47 Dose: 2 puff Chlorhexidine Gluconate (Hibiclens For Decolonization -) 1 applic TP [facility] Last Admin: 07/08/18 21:45 Dose: Not Given Furosemide (Lasix Injection -) 40 mg IVPUSH DAILY [facility] Last Admin: 07/08/18 10:17 Dose: 40 mg Hydralazine HCl (Apresoline -) 50 mg PO TID [facility] Last Admin: 07/09/18 06:07 Dose: 50 mg Levothyroxine Sodium (Synthroid -) 75 mcg PO DAILY@0700 [facility] Last Admin: 07/09/18 06:07 Dose: 75 mcg Multivitamins/Minerals/Vitamin C (Tab-A-Vit -) 1 tab PO DAILY [facility] Last Admin: 07/08/18 10:15 Dose: 1 tab Nifedipine (Procardia Xl -) 90 mg PO DAILY [facility] Last Admin: 07/08/18 10:17 Dose: 90 mg Pantoprazole Sodium (Protonix -) 40 mg PO DAILY [facility] Last Admin: 07/08/18 10:17 Dose: 40 mg - Objective Vital Signs: Vital Signs Temperature 97.5 F L 07/09/18 06:00 Pulse Rate 90 07/09/18 06:00 Respiratory Rate 20 07/09/18 06:00 Blood Pressure 131/78 07/09/18 06:00 O2 Sat by Pulse Oximetry (%) 92 L 07/09/18 06:00 Eyes: Yes: WNL, Conjunctiva Clear, EOM Intact HENT: Yes: WNL, Atraumatic, Normocephalic Neck: Yes: WNL, Supple, Trachea Midline Cardiovascular: Yes: Pulse Irregular, S1, S2 Respiratory: Yes: WNL, Regular, CTA Bilaterally Gastrointestinal: Yes: WNL, Normal Bowel Sounds Genitourinary: Yes: WNL Musculoskeletal: Yes: WNL Extremities: Yes: WNL Edema: No Integumentary: Yes: WNL Neurological: Yes: WNL, Alert, Oriented ...Motor Strength: WNL Psychiatric: Yes: WNL Labs: CBC, BMP 07/08/18 05:30 07/09/18 06:30 INR, PTT INR 2.08 (0.83-1.09) H 06/24/18 11:30 Assessment/Plan IMP: Acute on Chronic Hypoxic Respiratory Failure improving Pneumonia Severe Sepsis improving Acute Kidney Injury Acute COPD Exacerbation Acute on Chronic Diastolic Heart Failure Pulmonary HTN Atrial Flutter with RVR HTN Hyperlipidemia Hypothyroidism Chest pain, atypical symptoms. REC: 1. Supplimental O2 2. Anticoagulation, On Eliquis 3. Serial TnIs negative, markedly elevated BNP. 4. Continue Lasix with daily monitoring of renal fxn and electrolytes: suppliment K+
[2018-07-09] MEDS ORDERED: PT OWN MED DRAWER 7, Y5N ONE (10:16)
[2018-07-09] MEDS: MULTIVITAMINS (DAILY MVI) TABLET (FP) PO SCH (10:17)
[2018-07-09] MEDS: PANTOPRAZOLE 40 MG TABLET (FP) PO SCH (10:18)
[2018-07-09] MEDS: APIXABAN 2.5 MG TABLET PO SCH ×2 (10:18→21:54)
[2018-07-09] MEDS: BUDESONIDE/FORMETEROL FUMARATE 80/4.5 mcg INHALER IH SCH ×2 (10:18→21:55)
[2018-07-09] MEDS: NIFEdipine E.R. 90 MG TABLET (FP) PO SCH (10:18)
--- NOTE | 2018-07-09 11:14 | EKG ---
Test Reason : Blood Pressure : / mmHG Vent. Rate : 086 BPM Atrial Rate : 258 BPM P-R Int : 000 ms QRS Dur : 088 ms QT Int : 432 ms P-R-T Axes : 074 030 055 degrees QTc Int : 516 ms ATRIAL FLUTTER WITH 3:1 A-V CONDUCTION ABNORMAL ECG WHEN COMPARED WITH ECG OF 24-JUN-2018 11:09, RSR' PATTERN IN V1 IS NO LONGER PRESENT VENT. RATE HAS DECREASED Confirmed by JONA CAGLE MD ([id number]) on 07/09/2018 11:13:53 AM Referred By: Confirmed By:JONA CAGLE MD
--- NOTE | 2018-07-09 11:25 | PN ---
Progress Note (short form) - Note Progress Note: Pt seen/ examined chart reviewed awake. sob + denies cp. on n/c- dont want vm tachypnic Vital Signs Temp 97.5 F L 07/09/18 06:00 Pulse 90 07/09/18 06:00 Resp 20 07/09/18 06:00 BP 131/78 07/09/18 06:00 Pulse Ox 92 L 07/09/18 06:00 Intake & Output 07/08/18 07/08/18 07/09/18 11:59 23:59 11:59 Intake Total 50 300 310 Output Total 200 800 300 Balance -150 -500 10 Weight 156 lb 9.6 oz 183 lb Intake: IV 20 10 LH 20 10 Oral 50 280 300 Output: Urine 200 800 300 Void 200 800 300 Other: Voiding Method Urinal Urinal Urinal # Unmeasured Voids Void 1 Bowel Movement No No Weight Measurement Method Standing Scale Patient Lift Scale Active Medications Acetaminophen (Tylenol -) 650 mg PO Q6H PRN PRN Reason: PAIN LEVEL 1-5 Last Admin: 07/08/18 04:37 Dose: 650 mg Albuterol Sulfate (Ventolin 0.083% Nebulizer Soln -) 1 amp NEB Q6H PRN PRN Reason: SHORT OF BREATH/WHEEZING Last Admin: 07/08/18 21:05 Dose: 1 amp Apixaban (Eliquis -) 2.5 mg PO BID [facility] Last Admin: 07/09/18 10:18 Dose: 2.5 mg Atorvastatin Calcium (Lipitor -) 10 mg PO [facility] Last Admin: 07/08/18 21:45 Dose: 10 mg Budesonide/Formoterol Fumarate (Symbicort 80/4.5mcg -) 2 puff IH BID [facility] Last Admin: 07/09/18 10:18 Dose: 2 puff Chlorhexidine Gluconate (Hibiclens For Decolonization -) 1 applic TP [facility] Last Admin: 07/08/18 21:45 Dose: Not Given Furosemide (Lasix Injection -) 40 mg IVPUSH DAILY [facility] Last Admin: 07/08/18 10:17 Dose: 40 mg Hydralazine HCl (Apresoline -) 50 mg PO TID [facility] Last Admin: 07/09/18 06:07 Dose: 50 mg Levothyroxine Sodium (Synthroid -) 75 mcg PO DAILY@0700 [facility] Last Admin: 07/09/18 06:07 Dose: 75 mcg Multivitamins/Minerals/Vitamin C (Tab-A-Vit -) 1 tab PO DAILY [facility] Last Admin: 07/09/18 10:17 Dose: 1 tab Nifedipine (Procardia Xl -) 90 mg PO DAILY [facility] Last Admin: 07/09/18 10:18 Dose: 90 mg Pantoprazole Sodium (Protonix -) 40 mg PO DAILY [facility] Last Admin: 07/09/18 10:18 Dose: 40 mg CBC, BMP 07/08/18 05:30 07/09/18 06:30 Physical Examination Constitutional: Yes: alert and awake. mild discomfort Eyes: Yes: Conjunctiva Clear Neck: Yes: Supple, Other (no jvd) Cardiovascular: Yes: Pulse Irregular Respiratory: Yes: Bilateral rales Gastrointestinal: Yes: Soft/ non tender . bowel sound present, no edema Neurological: Yes: Alert Psychiatric: Yes: Alert Assessment/Plan overall condition - same Continue present care off abx off steroids wbc elevated iv lasix monitor lytes nebulizer treatment cxr Continue other meds will follow condition gaurded pt is dnr/di Problem List - Problems (1) Respiratory failure with hypoxia Code(s): J96.91 - RESPIRATORY FAILURE, UNSPECIFIED WITH HYPOXIA (2) Chronic diastolic CHF (congestive heart failure) Code(s): I50.32 - CHRONIC DIASTOLIC (CONGESTIVE) HEART FAILURE (3) HTN (hypertension) Code(s): I10 - ESSENTIAL (PRIMARY) HYPERTENSION Qualifiers: Hypertension type: essential hypertension Qualified Code(s): I10 - Essential (primary) hypertension (4) Hypothyroidism Code(s): E03.9 - HYPOTHYROIDISM, UNSPECIFIED Qualifiers: Hypothyroidism type: unspecified Qualified Code(s): E03.9 - Hypothyroidism , unspecified (5) Paroxysmal A-fib Code(s): I48.0 - PAROXYSMAL ATRIAL FIBRILLATION
[2018-07-09] MEDS: ALBUTEROL SO4 0.083% IH SOL 2.5 MG/3 ML VIAL.NEB. NEB PRN ×2 (11:27→20:39)
[2018-07-09] MEDS: FUROSEMIDE 40 MG/4 ML INJECTABLE VIAL IVPUSH SCH (11:30)
--- NOTE | 2018-07-09 11:41 | PN ---
Progress Note, Physician History of Present Illness: PULMONARY AWAKE,+ TACHYPNEC,DECREASED O2 SATS,REFUSES V/M,WILL ONLY USE NASAL CANNULA - Current Medication List Current Medications: Active Medications Acetaminophen (Tylenol -) 650 mg PO Q6H PRN PRN Reason: PAIN LEVEL 1-5 Last Admin: 07/08/18 04:37 Dose: 650 mg Albuterol Sulfate (Ventolin 0.083% Nebulizer Soln -) 1 amp NEB Q6H PRN PRN Reason: SHORT OF BREATH/WHEEZING Last Admin: 07/08/18 21:05 Dose: 1 amp Apixaban (Eliquis -) 2.5 mg PO BID [facility] Last Admin: 07/09/18 10:18 Dose: 2.5 mg Atorvastatin Calcium (Lipitor -) 10 mg PO HS [facility] Last Admin: 07/08/18 21:45 Dose: 10 mg Budesonide/Formoterol Fumarate (Symbicort 80/4.5mcg -) 2 puff IH BID [facility] Last Admin: 07/09/18 10:18 Dose: 2 puff Chlorhexidine Gluconate (Hibiclens For Decolonization -) 1 applic TP [facility] Last Admin: 07/08/18 21:45 Dose: Not Given Furosemide (Lasix Injection -) 40 mg IVPUSH DAILY [facility] Last Admin: 07/09/18 11:30 Dose: 40 mg Hydralazine HCl (Apresoline -) 50 mg PO TID [facility] Last Admin: 07/09/18 06:07 Dose: 50 mg Levothyroxine Sodium (Synthroid -) 75 mcg PO DAILY@0700 [facility] Last Admin: 07/09/18 06:07 Dose: 75 mcg Multivitamins/Minerals/Vitamin C (Tab-A-Vit -) 1 tab PO DAILY [facility] Last Admin: 07/09/18 10:17 Dose: 1 tab Nifedipine (Procardia Xl -) 90 mg PO DAILY [facility] Last Admin: 07/09/18 10:18 Dose: 90 mg Pantoprazole Sodium (Protonix -) 40 mg PO DAILY [facility] Last Admin: 07/09/18 10:18 Dose: 40 mg - Objective Vital Signs: Vital Signs Temperature 98 F 07/09/18 10:00 Pulse Rate 86 07/09/18 10:00 Respiratory Rate 20 07/09/18 10:00 Blood Pressure 135/82 07/09/18 10:00 O2 Sat by Pulse Oximetry (%) 92 L 07/09/18 06:00 Constitutional: Yes: Well Nourished, Mild Distress, Moderate Distress Eyes: Yes: WNL HENT: Yes: WNL Cardiovascular: Yes: Pulse Irregular, S1, S2 Respiratory: Yes: Rales Gastrointestinal: Yes: Normal Bowel Sounds, Soft Extremities: Yes: WNL Edema: No Labs: CBC, BMP 07/09/18 06:30 INR, PTT Assessment/Plan ASSESSMENT AND PLAN: Acute on Chronic Hypoxic Respiratory Failure Pneumonia S/P Severe Sepsis improving CHF Acute Kidney Injury Acute COPD Exacerbation Acute on Chronic Diastolic Heart Failure Pulmonary HTN Atrial Flutter with RVR HTN Hyperlipidemia Hypothyroidism - ac - inhaled bronchodilators standing and PRN - taper FiO2 to keep SpO2>90% - rate control - anticoagulation - monitor urine output, creatinine - chest x-ray - abg - dustin MENDOZA
[2018-07-09 12:24] LABS: ARTERIAL BLD GAS O2 SATURATION 87.3 % (90-98.9); ARTERIAL BLOOD GAS BASE EXCESS 11.4 meq/l (-2-2); ARTERIAL BLOOD GAS PCO2 41.4 mmHg (35-45); ARTERIAL BLOOD GAS pH 7.54 (7.35-7.45)
[2018-07-09 12:26] LABS: ALLENS TEST POSITIVE
[2018-07-09] MEDS: ACETAMINOPHEN 325 MG TABLET (FP) PO PRN (20:10)
[2018-07-09] MEDS: CHLORHEXIDINE GLUCONATE 4% CLEANSER FOR DECOLONIZATION TP SCH (21:52)
[2018-07-09] MEDS: ATORVASTATIN CA 10 MG TABLET (FP) PO SCH (21:54)
[2018-07-10] MEDS: ALBUTEROL SO4 0.083% IH SOL 2.5 MG/3 ML VIAL.NEB. NEB PRN (06:00)
[2018-07-10] MEDS: hydrALAZINE HCL 50 MG TABLET (FP) PO SCH ×3 (06:32→21:28)
[2018-07-10] MEDS: LEVOTHYROXINE NA 75 MCG TABLET (FP) PO SCH (06:32)
[2018-07-10] MEDS: ACETAMINOPHEN 325 MG TABLET (FP) PO PRN ×2 (09:40→21:28)
[2018-07-10] MEDS: FUROSEMIDE 40 MG/4 ML INJECTABLE VIAL IVPUSH SCH (09:40)
[2018-07-10] MEDS: PANTOPRAZOLE 40 MG TABLET (FP) PO SCH (09:40)
[2018-07-10] MEDS: NIFEdipine E.R. 90 MG TABLET (FP) PO SCH (09:41)
[2018-07-10] MEDS: APIXABAN 2.5 MG TABLET PO SCH ×2 (09:41→21:28)
[2018-07-10] MEDS: MULTIVITAMINS (DAILY MVI) TABLET (FP) PO SCH (09:41)
--- NOTE | 2018-07-10 10:36 | PN ---
Progress Note, Physician History of Present Illness: PULMONARY STILL VERY DYSPNEIC,TACHYPNEIC,HYPOXIC - Current Medication List Current Medications: Active Medications Acetaminophen (Tylenol -) 650 mg PO Q6H PRN PRN Reason: PAIN LEVEL 1-5 Last Admin: 07/10/18 09:40 Dose: 650 mg Albuterol Sulfate (Ventolin 0.083% Nebulizer Soln -) 1 amp NEB Q6H PRN PRN Reason: SHORT OF BREATH/WHEEZING Last Admin: 07/10/18 06:00 Dose: 1 amp Apixaban (Eliquis -) 2.5 mg PO BID [facility] Last Admin: 07/10/18 09:41 Dose: 2.5 mg Atorvastatin Calcium (Lipitor -) 10 mg PO HS [facility] Last Admin: 07/09/18 21:54 Dose: 10 mg Budesonide/Formoterol Fumarate (Symbicort 80/4.5mcg -) 2 puff IH BID [facility] Last Admin: 07/09/18 21:55 Dose: 2 puff Chlorhexidine Gluconate (Hibiclens For Decolonization -) 1 applic TP [facility] Last Admin: 07/09/18 21:52 Dose: Not Given Furosemide (Lasix Injection -) 40 mg IVPUSH DAILY [facility] Last Admin: 07/10/18 09:40 Dose: 40 mg Hydralazine HCl (Apresoline -) 50 mg PO TID [facility] Last Admin: 07/10/18 06:32 Dose: 50 mg Levothyroxine Sodium (Synthroid -) 75 mcg PO DAILY@0700 [facility] Last Admin: 07/10/18 06:32 Dose: 75 mcg Multivitamins/Minerals/Vitamin C (Tab-A-Vit -) 1 tab PO DAILY [facility] Last Admin: 07/10/18 09:41 Dose: 1 tab Nifedipine (Procardia Xl -) 90 mg PO DAILY [facility] Last Admin: 07/10/18 09:41 Dose: 90 mg Pantoprazole Sodium (Protonix -) 40 mg PO DAILY [facility] Last Admin: 07/10/18 09:40 Dose: 40 mg - Objective Vital Signs: Vital Signs Temperature 98.3 F 07/10/18 06:00 Pulse Rate 124 H 07/10/18 06:00 Respiratory Rate 24 07/10/18 08:00 Blood Pressure 131/85 07/10/18 06:00 O2 Sat by Pulse Oximetry (%) 88 L 07/10/18 08:00 Constitutional: Yes: Well Nourished, Moderate Distress Eyes: Yes: WNL HENT: Yes: WNL Neck: Yes: WNL Cardiovascular: Yes: Regular Rate and Rhythm, Tachycardia, S1, S2 Respiratory: Yes: Rales (BILATERAL RALES) Gastrointestinal: Yes: Normal Bowel Sounds, Soft Extremities: Yes: WNL Edema: No Labs: CBC, BMP - ....Imaging Chest X-ray: Report Reviewed, Image Reviewed Assessment/Plan ASSESSMENT AND PLAN: Acute on Chronic Hypoxic Respiratory Failure Pneumonia CHF Acute Kidney Injury Acute COPD Exacerbation Acute on Chronic Diastolic Heart Failure Pulmonary HTN Atrial Flutter with RVR HTN Hyperlipidemia Hypothyroidism - ac - inhaled bronchodilators standing and PRN - abx - iv lasix - taper FiO2 to keep SpO2>90% - rate control - anticoagulation - monitor urine output, creatinine - chest x-ray -steroids -NIPPV if pt allows DR MENDOZA
--- NOTE | 2018-07-10 11:56 | PN ---
Progress Note (short form) - Note Progress Note: Progress Note (short form) - Note Progress Note: on bipap denies pain has sob today Vital Signs - 24 hr 07/09/18 07/10/18 07/10/18 21:00 02:32 06:00 Temperature 98 F 98.8 F 98.3 F Pulse Rate 119 H 108 H 124 H Respiratory 24 22 24 Rate Blood Pressure 135/79 134/78 131/85 O2 Sat by Pulse 90 L Oximetry (%) 07/10/18 07/10/18 07/10/18 08:00 10:00 14:00 Temperature 98 F 98.6 F Pulse Rate 124 H 91 H Respiratory 24 20 Rate Blood Pressure 130/69 142/81 O2 Sat by Pulse 88 L Oximetry (%) Current Medications Generic Name Dose Route Start Last Admin Trade Name Freq PRN Reason Stop Dose Admin Acetaminophen 650 mg 06/24/18 14:46 07/10/18 09:40 Tylenol - PO 650 mg Q6H PRN Administration PAIN LEVEL 1-5 Albuterol Sulfate 1 amp 06/26/18 11:30 07/10/18 06:00 Ventolin 0.083% Nebulizer Soln - NEB 1 amp Q6H PRN Administration SHORT OF BREATH/WHEEZING Apixaban 2.5 mg 06/24/18 22:00 07/10/18 09:41 Eliquis - PO 2.5 mg BID JAGDEEP Administration Atorvastatin Calcium 10 mg 06/25/18 22:00 07/09/18 21:54 Lipitor - PO 10 mg HS JAGDEEP Administration Budesonide/Formoterol Fumarate 2 puff 06/24/18 22:00 07/10/18 16:08 Symbicort 80/4.5mcg - IH 2 puff BID JAGDEEP Administration Chlorhexidine Gluconate 1 applic 06/24/18 22:00 07/09/18 21:52 Hibiclens For Decolonization - TP Not Given HS JAGDEEP Diltiazem HCl 30 mg 07/10/18 15:00 07/10/18 16:06 Cardizem - PO 30 mg TID JAGDEEP Administration Furosemide 40 mg 07/07/18 10:00 07/10/18 09:40 Lasix Injection - IVPUSH 40 mg DAILY JAGDEEP Administration Hydralazine HCl 50 mg 06/30/18 14:00 07/10/18 16:07 Apresoline - PO 50 mg TID JAGDEEP Administration Meropenem 500 mg/ Dextrose 100 mls @ 200 mls/hr 07/10/18 18:00 IVPB BID@0600,1800 JAGDEEP Vancomycin HCl 1,000 mg/ 250 mls @ 166.667 mls/hr 07/10/18 18:30 Dextrose IVPB 07/10/18 19:59 ONCE ONE Protocol Levothyroxine Sodium 75 mcg 06/25/18 07:00 07/10/18 06:32 Synthroid - PO 75 mcg DAILY@0700 JAGDEEP Administration Methylprednisolone Sodium Succinate 40 mg 07/10/18 10:45 07/10/18 16:07 Solu-Medrol - IVPUSH 40 mg Q6H-IV JAGDEEP Administration Multivitamins/Minerals/Vitamin C 1 tab 06/25/18 10:00 07/10/18 09:41 Tab-A-Vit - PO 1 tab DAILY JAGDEEP Administration Pantoprazole Sodium 40 mg 06/28/18 10:00 07/10/18 09:40 Protonix - PO 40 mg DAILY JAGDEEP Administration Physical Examination Constitutional: Yes: alert and awake. comfortable. Eyes: Yes: Conjunctiva Clear Neck: Yes: Supple, Other (no jvd) Cardiovascular: Yes: Pulse Irregular Respiratory: Yes: Bilateral rales at bases Gastrointestinal: Yes: Soft/ non tender . bowel sound present, no edema Neurological: Yes: Alert Psychiatric: Yes: Alert Assessment/Plan BIPAP Continue present care Abx- restarted iv steroids clinical condition- guarded monitor nebulizer treatment Problem List - Problems (1) Respiratory failure with hypoxia Code(s): J96.91 - RESPIRATORY FAILURE, UNSPECIFIED WITH HYPOXIA (2) Chronic diastolic CHF (congestive heart failure) Code(s): I50.32 - CHRONIC DIASTOLIC (CONGESTIVE) HEART FAILURE (3) HTN (hypertension) Code(s): I10 - ESSENTIAL (PRIMARY) HYPERTENSION Qualifiers: Hypertension type: essential hypertension Qualified Code(s): I10 - Essential (primary) hypertension (4) Hypothyroidism Code(s): E03.9 - HYPOTHYROIDISM, UNSPECIFIED Qualifiers: Hypothyroidism type: unspecified Qualified Code(s): E03.9 - Hypothyroidism , unspecified (5) Paroxysmal A-fib Code(s): I48.0 - PAROXYSMAL ATRIAL FIBRILLATION
--- NOTE | 2018-07-10 14:35 | PN ---
Progress Note, Physician Chief Complaint: Pt A&Ox3; tachypneic and tachycardic History of Present Illness: The patient is an 82M w/ a PMH of COPD, a-fib (Eliquis), CKD, HLD, HTN, diastolic CHF, hypothyroidism who presents from his half-way ([facility] ) for worsening shortness of breath, fever (Tm 101.6), and hypoxia despite 3L NC. On arrival, the patient endorses worsening dyspnea and productive cough. He also reports chronic abdominal pain 2/2 hiatal hernia. Patient denies MCGRATH, acute vision change, chest pain, BLE swelling, or changes in sensation. - Current Medication List Current Medications: Active Medications Acetaminophen (Tylenol -) 650 mg PO Q6H PRN PRN Reason: PAIN LEVEL 1-5 Last Admin: 07/10/18 09:40 Dose: 650 mg Albuterol Sulfate (Ventolin 0.083% Nebulizer Soln -) 1 amp NEB Q6H PRN PRN Reason: SHORT OF BREATH/WHEEZING Last Admin: 07/10/18 06:00 Dose: 1 amp Apixaban (Eliquis -) 2.5 mg PO BID [facility] Last Admin: 07/10/18 09:41 Dose: 2.5 mg Atorvastatin Calcium (Lipitor -) 10 mg PO HS [facility] Last Admin: 07/09/18 21:54 Dose: 10 mg Budesonide/Formoterol Fumarate (Symbicort 80/4.5mcg -) 2 puff IH BID [facility] Last Admin: 07/09/18 21:55 Dose: 2 puff Chlorhexidine Gluconate (Hibiclens For Decolonization -) 1 applic TP HS [facility] Last Admin: 07/09/18 21:52 Dose: Not Given Furosemide (Lasix Injection -) 40 mg IVPUSH DAILY [facility] Last Admin: 07/10/18 09:40 Dose: 40 mg Hydralazine HCl (Apresoline -) 50 mg PO TID [facility] Last Admin: 07/10/18 06:32 Dose: 50 mg Levothyroxine Sodium (Synthroid -) 75 mcg PO DAILY@0700 [facility] Last Admin: 07/10/18 06:32 Dose: 75 mcg Methylprednisolone Sodium Succinate (Solu-Medrol -) 40 mg IVPUSH Q6H-IV [facility] Multivitamins/Minerals/Vitamin C (Tab-A-Vit -) 1 tab PO DAILY [facility] Last Admin: 07/10/18 09:41 Dose: 1 tab Nifedipine (Procardia Xl -) 90 mg PO DAILY [facility] Last Admin: 07/10/18 09:41 Dose: 90 mg Pantoprazole Sodium (Protonix -) 40 mg PO DAILY [facility] Last Admin: 07/10/18 09:40 Dose: 40 mg - Objective Vital Signs: Vital Signs Temperature 98.3 F 07/10/18 06:00 Pulse Rate 124 H 07/10/18 06:00 Respiratory Rate 24 07/10/18 08:00 Blood Pressure 131/85 07/10/18 06:00 O2 Sat by Pulse Oximetry (%) 88 L 07/10/18 08:00 Constitutional: Yes: Anxious Eyes: Yes: WNL HENT: Yes: WNL Neck: Yes: WNL Cardiovascular: Yes: Tachycardia, Pulse Irregular Respiratory: Yes: Diminished, SOB, Tachypnea Gastrointestinal: Yes: Soft ...Rectal Exam: Yes: Deferred Genitourinary: No: Anuria Musculoskeletal: Yes: Muscle Weakness Extremities: Yes: Cool Edema: No Peripheral Pulses WNL: Yes Integumentary: Yes: WNL Neurological: Yes: Alert, Oriented, Pre-Existing Deficit, Weakness Psychiatric: Yes: Alert, Oriented Labs: CBC, BMP 07/08/18 05:30 07/09/18 06:30 INR, PTT INR 2.08 (0.83-1.09) H 06/24/18 11:30 - ....Imaging EKG: Image Reviewed (atrial flutter with variable AV block) Problem List - Problems (1) Atrial flutter Assessment/Plan: Change nifedipine to diltiazem for both BP and HR control. (Start diltiazem 30 mg tid; change to CD 120 mg daily tomorrow). Continue apixaban for anticoagulation. Code(s): I48.92 - UNSPECIFIED ATRIAL FLUTTER (2) CKD (chronic kidney disease) Code(s): N18.9 - CHRONIC KIDNEY DISEASE, UNSPECIFIED Qualifiers: Chronic kidney disease stage: unspecified stage Qualified Code(s): N18.9 - Chronic kidney disease, unspecified (3) COPD exacerbation Assessment/Plan: hx exposure to 2nd hand smoke. Gives hx of "asthma". On bronchodilators, steriods, O2, Bipap per pulmonary. 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 + JVD Tachypneic; tachycardic. Nifedipine changed to diltiazem for HR, BP control. On furosemide. F/u BUN/Cr, electrolytes, Is and Os, daily weight. Code(s): I50.32 - CHRONIC DIASTOLIC (CONGESTIVE) HEART FAILURE (5) GERD (gastroesophageal reflux disease) Code(s): K21.9 - GASTRO-ESOPHAGEAL REFLUX DISEASE WITHOUT ESOPHAGITIS Qualifiers: Esophagitis presence: esophagitis presence not specified Qualified Code(s) : K21.9 - Gastro-esophageal reflux disease without esophagitis (6) HTN (hypertension) Assessment/Plan: On nifedipine (now changed to diltiazem), hydralazine and furosemide. Code(s): I10 - ESSENTIAL (PRIMARY) HYPERTENSION Qualifiers: Hypertension type: essential hypertension Qualified Code(s): I10 - Essential (primary) hypertension (7) Hypothyroidism Code(s): E03.9 - HYPOTHYROIDISM, UNSPECIFIED Qualifiers: Hypothyroidism type: unspecified Qualified Code(s): E03.9 - Hypothyroidism , unspecified
[2018-07-10] MEDS: dilTIAZem HCL 30 MG TABLET (FP) PO SCH ×2 (16:06→21:28)
[2018-07-10] MEDS: methylPREDNISolone NA SUCC 40 MG/1 ML VIAL IVPUSH SCH ×3 (16:07→21:28)
[2018-07-10] MEDS: BUDESONIDE/FORMETEROL FUMARATE 80/4.5 mcg INHALER IH SCH ×2 (16:08→21:32)
--- NOTE | 2018-07-10 18:11 | PN ---
Progress Note (short form) - Note Progress Note: signifcant respiratory deterioration since I last saw him now on telemetry, hypoxic on BIPAP Vital Signs Period Temp Pulse Resp BP Sys/[place] Pulse Ox Last 24 Hr 98 F-98.8 F 91-124 20-24 130-142/69-85 88-90 cor-rrr lungs bilateral rhonchi abd soft,nt ext trace edema CBC, BMP 07/08/18 05:30 07/09/18 06:30 Microbiology 06/24/18 21:15 Blood - Peripheral Venous Blood Culture - Final NO GROWTH AFTER 5 DAYS INCUBATION 06/24/18 21:10 Blood - Peripheral Venous Blood Culture - Final NO GROWTH AFTER 5 DAYS INCUBATION 06/24/18 11:30 Blood - Peripheral Venous Blood Culture - Final NO GROWTH AFTER 5 DAYS INCUBATION 06/24/18 11:30 Blood - Peripheral Venous Blood Culture - Final NO GROWTH AFTER 5 DAYS INCUBATION 06/26/18 14:00 Nares - Mrsa Screen - Left MRSA Screen - Final NO MRSA ISOLATED 06/26/18 14:00 Nares - Mrsa Screen - Right MRSA Screen - Final NO MRSA ISOLATED 06/25/18 07:00 Sputum - Expectorated Gram Stain - Final 06/25/18 07:00 Sputum - Expectorated Sputum Culture - Final NORMAL RESPIRATORY JOANNA 06/24/18 19:50 Urine - Urine Clean Catch Legionella Antigen - Final 06/24/18 19:50 Urine - Urine Clean Catch Streptococcus pneumoniae Antigen ( M - Final 06/24/18 13:51 Urine - Urine Clean Catch Urine Culture - Final NO GROWTH OBTAINED Active Medications Acetaminophen (Tylenol -) 650 mg PO Q6H PRN PRN Reason: PAIN LEVEL 1-5 Last Admin: 07/10/18 09:40 Dose: 650 mg Albuterol Sulfate (Ventolin 0.083% Nebulizer Soln -) 1 amp NEB Q6H PRN PRN Reason: SHORT OF BREATH/WHEEZING Last Admin: 07/10/18 06:00 Dose: 1 amp Apixaban (Eliquis -) 2.5 mg PO BID [facility] Last Admin: 07/10/18 09:41 Dose: 2.5 mg Atorvastatin Calcium (Lipitor -) 10 mg PO HS [facility] Last Admin: 07/09/18 21:54 Dose: 10 mg Budesonide/Formoterol Fumarate (Symbicort 80/4.5mcg -) 2 puff IH BID [facility] Last Admin: 07/10/18 16:08 Dose: 2 puff Chlorhexidine Gluconate (Hibiclens For Decolonization -) 1 applic TP HS [facility] Last Admin: 07/09/18 21:52 Dose: Not Given Diltiazem HCl (Cardizem -) 30 mg PO TID [facility] Last Admin: 07/10/18 16:06 Dose: 30 mg Furosemide (Lasix Injection -) 40 mg IVPUSH DAILY [facility] Last Admin: 07/10/18 09:40 Dose: 40 mg Hydralazine HCl (Apresoline -) 50 mg PO TID [facility] Last Admin: 07/10/18 16:07 Dose: 50 mg Meropenem 500 mg/ Dextrose 100 mls @ 200 mls/hr IVPB BID@0600,1800 [facility] Levothyroxine Sodium (Synthroid -) 75 mcg PO DAILY@0700 [facility] Last Admin: 07/10/18 06:32 Dose: 75 mcg Methylprednisolone Sodium Succinate (Solu-Medrol -) 40 mg IVPUSH Q6H-IV [facility] Last Admin: 07/10/18 16:07 Dose: 40 mg Multivitamins/Minerals/Vitamin C (Tab-A-Vit -) 1 tab PO DAILY [facility] Last Admin: 07/10/18 09:41 Dose: 1 tab Pantoprazole Sodium (Protonix -) 40 mg PO DAILY [facility] Last Admin: 07/10/18 09:40 2 cxray RLL infiltrate a/p resp failure with hypoxia-worsening suspect combination of infection and chf will escalate to vanco/meropenem-cover for HAP copd exacerbation Penicillin allergy ckd afib prolonged Qtc Problem List - Problems (1) Respiratory failure with hypoxia Code(s): J96.91 - RESPIRATORY FAILURE, UNSPECIFIED WITH HYPOXIA (2) Pneumonia Code(s): J18.9 - PNEUMONIA, UNSPECIFIED ORGANISM (3) COPD exacerbation Code(s): J44.1 - CHRONIC OBSTRUCTIVE PULMONARY DISEASE W (ACUTE) EXACERBATION (4) CKD (chronic kidney disease) Code(s): N18.9 - CHRONIC KIDNEY DISEASE, UNSPECIFIED Qualifiers: Chronic kidney disease stage: unspecified stage Qualified Code(s): N18.9 - Chronic kidney disease, unspecified (5) Penicillin allergy Code(s): Z88.0 - ALLERGY STATUS TO PENICILLIN
[2018-07-10] MEDS ORDERED: VANCOMYCIN 1,000 MG in DEXTROSE 5%-WATER - 250 ML IVPB ONE (18:30)
[2018-07-10] MEDS: MEROPENEM 500 MG in DEXTROSE 5%-WATER 100 ML IVPB SCH (19:04)
[2018-07-10] MEDS: CHLORHEXIDINE GLUCONATE 4% CLEANSER FOR DECOLONIZATION TP SCH (21:22)
[2018-07-10] MEDS: ATORVASTATIN CA 10 MG TABLET (FP) PO SCH (21:28)
[2018-07-11] MEDS: methylPREDNISolone NA SUCC 40 MG/1 ML VIAL IVPUSH SCH ×4 (02:56→21:42)
[2018-07-11] MEDS: LEVOTHYROXINE NA 75 MCG TABLET (FP) PO SCH (06:15)
[2018-07-11] MEDS: dilTIAZem HCL 30 MG TABLET (FP) PO SCH ×3 (06:15→21:42)
[2018-07-11] MEDS: MEROPENEM 500 MG in DEXTROSE 5%-WATER 100 ML IVPB SCH ×2 (06:15→18:04)
[2018-07-11] MEDS: hydrALAZINE HCL 50 MG TABLET (FP) PO SCH ×3 (06:15→21:42)
[2018-07-11 06:36] LABS: BASO % 0.2 % (0-2.0); HEMATOCRIT 28.7 % (35.4-49); HEMOGLOBIN 9.4 GM/dL (11.7-16.9); LYMPH % 2.3 % (8-40); MCHC 32.7 g/dl (32.0-35.9); MEAN CELL VOLUME 79.4 fl (80-96); MONO % 1.5 % (3.8-10.2); PLATELET COUNT 279 K/MM3 (134-434); RBC 3.62 M/mm3 (4.00-5.60); RDW 19.5 % (11.9-15.9); WHITE BLOOD COUNT 10.9 K/mm3 (4.0-10.0)
[2018-07-11] MEDS: ALBUTEROL SO4 0.083% IH SOL 2.5 MG/3 ML VIAL.NEB. NEB PRN ×2 (06:50→10:20)
[2018-07-11 07:16] LABS: CHLORIDE 103 mmol/L (98-107); POTASSIUM 4.2 mmol/L (3.5-5.1); SODIUM 147 mmol/L (136-145)
[2018-07-11 07:25] LABS: ALBUMIN 2.4 g/dl (3.4-5.0); ALK PHOS 83 U/L (45-117); ANION GAP 10 MMOL/L (8-16); BILIRUBIN,TOTAL 0.7 mg/dL (0.2-1.0); BLOOD UREA NITROGEN 62 mg/dL (7-18); CALCIUM 8.3 mg/dL (8.5-10.1); CO2 34 mmol/L (21-32); CREATININE 1.9 mg/dL (0.7-1.3); GLUCOSE,RANDOM 139 mg/dL (74-106); SGOT/AST 9 U/L (15-37); SGPT/ALT 22 U/L (12-78); TOT PROT 6.4 g/dl (6.4-8.2)
[2018-07-11 09:52] LABS: ANISOCYTOSIS 1+; MACROCYTOSIS 0; PLATELET ESTIMATE NORMAL; TARGET CELLS 1+
[2018-07-11] MEDS: FUROSEMIDE 40 MG/4 ML INJECTABLE VIAL IVPUSH SCH (10:02)
[2018-07-11] MEDS: PANTOPRAZOLE 40 MG TABLET (FP) PO SCH (10:03)
[2018-07-11] MEDS: APIXABAN 2.5 MG TABLET PO SCH ×2 (10:03→21:42)
[2018-07-11] MEDS: MULTIVITAMINS (DAILY MVI) TABLET (FP) PO SCH (10:03)
[2018-07-11] MEDS: BUDESONIDE/FORMETEROL FUMARATE 80/4.5 mcg INHALER IH SCH ×2 (10:04→22:30)
--- NOTE | 2018-07-11 11:40 | PN ---
Progress Note (short form) - Note Progress Note: Progress Note (short form) - Note Progress Note: on bipap denies pain states he feels better but does appear to be dyspneic Vital Signs - 24 hr 07/10/18 07/10/18 07/10/18 17:00 21:00 22:00 Temperature 97.4 F L 98 F Pulse Rate 93 H 109 H Respiratory 20 20 Rate Blood Pressure 135/77 124/77 O2 Sat by Pulse 100 100 Oximetry (%) 07/11/18 07/11/18 07/11/18 01:00 05:00 06:10 Temperature 98.6 F 97.8 F Pulse Rate 81 97 H Respiratory 20 22 Rate Blood Pressure 136/84 121/81 O2 Sat by Pulse 100 Oximetry (%) 07/11/18 07/11/18 11:30 13:27 Temperature 98.3 F Pulse Rate 96 H 91 H Respiratory Rate Blood Pressure 142/72 O2 Sat by Pulse 91 L Oximetry (%) Current Medications Generic Name Dose Route Start Last Admin Trade Name Freq PRN Reason Stop Dose Admin Acetaminophen 650 mg 06/24/18 14:46 07/11/18 14:01 Tylenol - PO 650 mg Q6H PRN Administration PAIN LEVEL 1-5 Albuterol Sulfate 1 amp 06/26/18 11:30 07/11/18 10:20 Ventolin 0.083% Nebulizer Soln - NEB 1 amp Q6H PRN Administration SHORT OF BREATH/WHEEZING Apixaban 2.5 mg 06/24/18 22:00 07/11/18 10:03 Eliquis - PO 2.5 mg BID [facility] Administration Atorvastatin Calcium 10 mg 06/25/18 22:00 07/10/18 21:28 Lipitor - PO 10 mg HS [facility] Administration Budesonide/Formoterol Fumarate 2 puff 06/24/18 22:00 07/11/18 10:04 Symbicort 80/4.5mcg - IH Not Given BID [facility] Chlorhexidine Gluconate 1 applic 06/24/18 22:00 07/10/18 21:22 Hibiclens For Decolonization - TP Not Given HS [facility] Diltiazem HCl 30 mg 07/10/18 15:00 07/11/18 14:01 Cardizem - PO 30 mg TID [facility] Administration Furosemide 40 mg 07/07/18 10:00 07/11/18 10:02 Lasix Injection - IVPUSH 40 mg DAILY [facility] Administration Hydralazine HCl 50 mg 06/30/18 14:00 07/11/18 14:01 Apresoline - PO 50 mg TID [facility] Administration Meropenem 500 mg/ Dextrose 100 mls @ 200 mls/hr 07/10/18 18:00 07/11/18 06:15 IVPB 200 mls/hr BID@0600,1800 [facility] Administration Levothyroxine Sodium 75 mcg 06/25/18 07:00 07/11/18 06:15 Synthroid - PO 75 mcg DAILY@0700 [facility] Administration Methylprednisolone Sodium Succinate 40 mg 07/10/18 10:45 07/11/18 14:01 Solu-Medrol - IVPUSH 40 mg Q6H-IV [facility] Administration Multivitamins/Minerals/Vitamin C 1 tab 06/25/18 10:00 07/11/18 10:03 Tab-A-Vit - PO 1 tab DAILY [facility] Administration Pantoprazole Sodium 40 mg 06/28/18 10:00 07/11/18 10:03 Protonix - PO 40 mg DAILY [facility] Administration Laboratory Results - last 24 hr 07/10/18 07/11/18 07/11/18 07:00 05:30 05:30 WBC 10.9 H RBC 3.62 L Hgb 9.4 L Hct 28.7 L MCV 79.4 L MCH 26.0 MCHC 32.7 RDW 19.5 H Plt Count 279 MPV 7.0 L Absolute Neuts (auto) 10.4 H Neutrophils % 96.0 H Neutrophils % (Manual) 93.0 H Band Neutrophils % 1.0 Lymphocytes % 2.3 L D Lymphocytes % (Manual) 2.0 L D Monocytes % 1.5 L Monocytes % (Manual) 2 L Eosinophils % 0.0 D Eosinophils % (Manual) 0.0 Basophils % 0.2 Basophils % (Manual) 1.0 D Myelocytes % (Man) 0 Promyelocytes % (Man) 0 Blast Cells % (Manual) 0 Nucleated RBC % 0 Metamyelocytes 0 D Hypochromia 0 Platelet Estimate Normal Polychromasia 0 Poikilocytosis 0 Anisocytosis 1+ Microcytosis 1+ Macrocytosis 0 Target Cells 1+ Sodium 147 H Potassium 4.2 Chloride 103 Carbon Dioxide 34 H Anion Gap 10 BUN 62 H Creatinine 1.9 H Creat Clearance w eGFR 33.94 Random Glucose 139 H D Calcium 8.3 L Total Bilirubin 0.7 AST 9 L D ALT 22 Alkaline Phosphatase 83 D Total Protein 6.4 Albumin 2.4 L TSH 5.16 H Physical Examination Constitutional: Yes: alert and awake Eyes: Yes: Conjunctiva Clear Neck: Yes: Supple, Other (no jvd) Cardiovascular: Yes: Pulse Irregular Respiratory: Yes:ronchi+ Gastrointestinal: Yes: Soft/ non tender . bowel sound present, no edema Neurological: Yes: Alert Psychiatric: Yes: Alert Assessment/Plan BIPAP Continue present care Abx- restarted wbc trending down iv steroids clinical condition- guarded monitor nebulizer treatment may need to decrease Lasix -- worsening renal function and sodium Problem List - Problems (1) Respiratory failure with hypoxia Code(s): J96.91 - RESPIRATORY FAILURE, UNSPECIFIED WITH HYPOXIA (2) Chronic diastolic CHF (congestive heart failure) Code(s): I50.32 - CHRONIC DIASTOLIC (CONGESTIVE) HEART FAILURE (3) HTN (hypertension) Code(s): I10 - ESSENTIAL (PRIMARY) HYPERTENSION Qualifiers: Hypertension type: essential hypertension Qualified Code(s): I10 - Essential (primary) hypertension (4) Hypothyroidism Code(s): E03.9 - HYPOTHYROIDISM, UNSPECIFIED Qualifiers: Hypothyroidism type: unspecified Qualified Code(s): E03.9 - Hypothyroidism , unspecified (5) Paroxysmal A-fib Code(s): I48.0 - PAROXYSMAL ATRIAL FIBRILLATION
--- NOTE | 2018-07-11 12:13 | PN ---
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,STILL DYSPNEIC,TOLERATED BIPAP - Current Medication List Current Medications: Active Medications Acetaminophen (Tylenol -) 650 mg PO Q6H PRN PRN Reason: PAIN LEVEL 1-5 Last Admin: 07/10/18 21:28 Dose: 650 mg Albuterol Sulfate (Ventolin 0.083% Nebulizer Soln -) 1 amp NEB Q6H PRN PRN Reason: SHORT OF BREATH/WHEEZING Last Admin: 07/11/18 10:20 Dose: 1 amp Apixaban (Eliquis -) 2.5 mg PO BID [facility] Last Admin: 07/11/18 10:03 Dose: 2.5 mg Atorvastatin Calcium (Lipitor -) 10 mg PO HS [facility] Last Admin: 07/10/18 21:28 Dose: 10 mg Budesonide/Formoterol Fumarate (Symbicort 80/4.5mcg -) 2 puff IH BID [facility] Last Admin: 07/11/18 10:04 Dose: Not Given Chlorhexidine Gluconate (Hibiclens For Decolonization -) 1 applic TP [facility] Last Admin: 07/10/18 21:22 Dose: Not Given Diltiazem HCl (Cardizem -) 30 mg PO TID [facility] Last Admin: 07/11/18 06:15 Dose: 30 mg Furosemide (Lasix Injection -) 40 mg IVPUSH DAILY [facility] Last Admin: 07/11/18 10:02 Dose: 40 mg Hydralazine HCl (Apresoline -) 50 mg PO TID [facility] Last Admin: 07/11/18 06:15 Dose: 50 mg Meropenem 500 mg/ Dextrose 100 mls @ 200 mls/hr IVPB BID@0600,1800 [facility] Last Admin: 07/11/18 06:15 Dose: 200 mls/hr Levothyroxine Sodium (Synthroid -) 75 mcg PO DAILY@0700 [facility] Last Admin: 07/11/18 06:15 Dose: 75 mcg Methylprednisolone Sodium Succinate (Solu-Medrol -) 40 mg IVPUSH Q6H-IV [facility] Last Admin: 07/11/18 10:02 Dose: 40 mg Multivitamins/Minerals/Vitamin C (Tab-A-Vit -) 1 tab PO DAILY [facility] Last Admin: 07/11/18 10:03 Dose: 1 tab Pantoprazole Sodium (Protonix -) 40 mg PO DAILY [facility] Last Admin: 07/11/18 10:03 Dose: 40 mg - Objective Vital Signs: Vital Signs Temperature 97.8 F 07/11/18 05:00 Pulse Rate 96 H 07/11/18 11:30 Respiratory Rate 22 07/11/18 05:00 Blood Pressure 121/81 07/11/18 05:00 O2 Sat by Pulse Oximetry (%) 91 L 07/11/18 11:30 Constitutional: Yes: Well Nourished, Mild Distress Eyes: Yes: WNL HENT: Yes: WNL Neck: Yes: WNL Cardiovascular: Yes: Regular Rate and Rhythm, Pulse Irregular, S1, S2 Respiratory: Yes: Rales, Rhonchi (BRIJESH RALES AND RHONCHI) Gastrointestinal: Yes: WNL Extremities: Yes: WNL Edema: No Labs: CBC, BMP 07/11/18 05:30 07/11/18 05:30 INR, PTT INR 2.08 (0.83-1.09) H 06/24/18 11:30 Assessment/Plan ASSESSMENT AND PLAN: Acute on Chronic Hypoxic Respiratory Failure Pneumonia CHF Acute Kidney Injury Acute COPD Exacerbation Acute on Chronic Diastolic Heart Failure Pulmonary HTN Atrial Flutter with RVR HTN Hyperlipidemia Hypothyroidism - inhaled bronchodilators standing and PRN - abx as per id - iv lasix - NIPPV - taper FiO2 to keep SpO2>90% - rate control - anticoagulation - monitor urine output, creatinine - chest x-ray today -steroids same dose DR MENDOZA
--- NOTE | 2018-07-11 12:28 | PN ---
Progress Note, Physician History of Present Illness: Patient is a 82 year old male was sent from [facility] for worsening SOB. Patient reports that since many years he has had SOB due to COPD, has been on Oxygen intermittently for 6 yrs but since October,, has been using continuously. Since few days before admission, he had SOB, worsening, associated with wheezing, cough. It was productive, yellowish sputum. Denies chest pain, palpitation, abdominal pain, nausea or vomiting. Bowel/Bladder habit normal. Bowel movement was yesterday. Sleep/Appetite normal. 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 Smoking: Quit in 1955, smoked for 15 yrs, < 1pack/day Alcohol: Occasional quit years ago Drugs: Denies - Current Medication List Current Medications: Active Medications Acetaminophen (Tylenol -) 650 mg PO Q6H PRN PRN Reason: PAIN LEVEL 1-5 Last Admin: 07/10/18 21:28 Dose: 650 mg Albuterol Sulfate (Ventolin 0.083% Nebulizer Soln -) 1 amp NEB Q6H PRN PRN Reason: SHORT OF BREATH/WHEEZING Last Admin: 07/11/18 10:20 Dose: 1 amp Apixaban (Eliquis -) 2.5 mg PO BID [facility] Last Admin: 07/11/18 10:03 Dose: 2.5 mg Atorvastatin Calcium (Lipitor -) 10 mg PO [facility] Last Admin: 07/10/18 21:28 Dose: 10 mg Budesonide/Formoterol Fumarate (Symbicort 80/4.5mcg -) 2 puff IH BID [facility] Last Admin: 07/11/18 10:04 Dose: Not Given Chlorhexidine Gluconate (Hibiclens For Decolonization -) 1 applic TP [facility] Last Admin: 07/10/18 21:22 Dose: Not Given Diltiazem HCl (Cardizem -) 30 mg PO TID [facility] Last Admin: 07/11/18 06:15 Dose: 30 mg Furosemide (Lasix Injection -) 40 mg IVPUSH DAILY [facility] Last Admin: 07/11/18 10:02 Dose: 40 mg Hydralazine HCl (Apresoline -) 50 mg PO TID [facility] Last Admin: 07/11/18 06:15 Dose: 50 mg Meropenem 500 mg/ Dextrose 100 mls @ 200 mls/hr IVPB BID@0600,1800 [facility] Last Admin: 07/11/18 06:15 Dose: 200 mls/hr Levothyroxine Sodium (Synthroid -) 75 mcg PO DAILY@0700 [facility] Last Admin: 07/11/18 06:15 Dose: 75 mcg Methylprednisolone Sodium Succinate (Solu-Medrol -) 40 mg IVPUSH Q6H-IV [facility] Last Admin: 07/11/18 10:02 Dose: 40 mg Multivitamins/Minerals/Vitamin C (Tab-A-Vit -) 1 tab PO DAILY [facility] Last Admin: 07/11/18 10:03 Dose: 1 tab Pantoprazole Sodium (Protonix -) 40 mg PO DAILY [facility] Last Admin: 07/11/18 10:03 Dose: 40 mg - Objective Vital Signs: Vital Signs Temperature 97.8 F 07/11/18 05:00 Pulse Rate 96 H 07/11/18 11:30 Respiratory Rate 22 07/11/18 05:00 Blood Pressure 121/81 07/11/18 05:00 O2 Sat by Pulse Oximetry (%) 91 L 07/11/18 11:30 Eyes: Yes: WNL, Conjunctiva Clear, EOM Intact HENT: Yes: WNL, Atraumatic, Normocephalic Neck: Yes: WNL, Supple, Trachea Midline Cardiovascular: Yes: Pulse Irregular, S1, S2 Respiratory: Yes: WNL, Regular, CTA Bilaterally Gastrointestinal: Yes: WNL, Normal Bowel Sounds Genitourinary: Yes: WNL Musculoskeletal: Yes: WNL Extremities: Yes: WNL Edema: No Integumentary: Yes: WNL Neurological: Yes: WNL, Alert, Oriented ...Motor Strength: WNL Psychiatric: Yes: WNL Labs: CBC, BMP 07/11/18 05:30 07/11/18 05:30 INR, PTT INR 2.08 (0.83-1.09) H 06/24/18 11:30 Assessment/Plan - Problems (1) Atrial flutter Assessment/Plan: Change nifedipine to diltiazem for both BP and HR control. (Start diltiazem 30 mg tid; change to CD 120 mg daily tomorrow). Continue apixaban for anticoagulation. Code(s): I48.92 - UNSPECIFIED ATRIAL FLUTTER (2) CKD (chronic kidney disease) Code(s): N18.9 - CHRONIC KIDNEY DISEASE, UNSPECIFIED Qualifiers: Chronic kidney disease stage: unspecified stage Qualified Code(s): N18.9 - Chronic kidney disease, unspecified (3) COPD exacerbation Assessment/Plan: hx exposure to 2nd hand smoke. Gives hx of "asthma". On bronchodilators, steriods, O2, Bipap per pulmonary. 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 + JVD Tachypneic; tachycardic. Nifedipine changed to diltiazem for HR, BP control. On furosemide. F/u BUN/Cr, electrolytes, Is and Os, daily weight. Code(s): I50.32 - CHRONIC DIASTOLIC (CONGESTIVE) HEART FAILURE (5) GERD (gastroesophageal reflux disease) Code(s): K21.9 - GASTRO-ESOPHAGEAL REFLUX DISEASE WITHOUT ESOPHAGITIS Qualifiers: Esophagitis presence: esophagitis presence not specified Qualified Code(s) : K21.9 - Gastro-esophageal reflux disease without esophagitis (6) HTN (hypertension) Assessment/Plan: On nifedipine (now changed to diltiazem), hydralazine and furosemide. Code(s): I10 - ESSENTIAL (PRIMARY) HYPERTENSION Qualifiers: Hypertension type: essential hypertension Qualified Code(s): I10 - Essential (primary) hypertension (7) Hypothyroidism Code(s): E03.9 - HYPOTHYROIDISM, UNSPECIFIED Qualifiers: Hypothyroidism type: unspecified Qualified Code(s): E03.9 - Hypothyroidism , unspecified
--- NOTE | 2018-07-11 13:11 | PN ---
Physical Exam: HEME/ONC CONSULT SUBJECTIVE: Patient seen and examined at bed side this morning. On 40 % Fi02. Has labored breathing but can speak full sentence. Patient says his breathing has improved. Wants [place] Ensure. Denies chest pain, palpitation, abdominal pain, nausea or vomiting. Bladder habit normal-was using the urinal. Afebrile overnight. OBJECTIVE: Vital Signs Period Temp Pulse Resp BP Sys/De Santiago Pulse Ox Last 24 Hr 97.4 F-98.6 F 81-109 20-22 121-142/77-84 91-100 GENERAL: Elderly male, Awake, alert, and fully oriented, in no acute distress. HEAD: Normal with no signs of trauma. EYES: EOM intact, pallor or icterus. EARS, NOSE, THROAT: Ears normal. Dry mucous membranes. NECK: Supple, JVD + LUNGS: Tachypneic, B/L coarse breath sounds equal. No wheeze. No accessory muscle use. HEART: Tachycardic, Irregularly irregular rate and rhythm, normal S1 and S2 with systolic murmur. ABDOMEN: Soft, nontender, no hepatomegaly or splenomegaly. MUSCULOSKELETAL: Normal range of motion at all joints. No bony deformities or tenderness. No CVA tenderness. UPPER EXTREMITIES: 2+ pulses, warm, well-perfused. No cyanosis. No clubbing. Cap refill <2 seconds. No peripheral edema. LOWER EXTREMITIES: 2+ pulses, warm, well-perfused. No calf tenderness. No peripheral edema. NEUROLOGICAL: No facial droop. Normal speech.Gait not observed. PSYCHIATRIC: Cooperative. Good eye contact. Appropriate mood and affect. SKIN: Warm, dry, normal turgor, no rashes or lesions noted. Laboratory Results - last 24 hr 07/10/18 07/11/18 07/11/18 07:00 05:30 05:30 WBC 10.9 H RBC 3.62 L Hgb 9.4 L Hct 28.7 L MCV 79.4 L MCH 26.0 MCHC 32.7 RDW 19.5 H Plt Count 279 MPV 7.0 L Absolute Neuts (auto) 10.4 H Neutrophils % 96.0 H Neutrophils % (Manual) 93.0 H Band Neutrophils % 1.0 Lymphocytes % 2.3 L D Lymphocytes % (Manual) 2.0 L D Monocytes % 1.5 L Monocytes % (Manual) 2 L Eosinophils % 0.0 D Eosinophils % (Manual) 0.0 Basophils % 0.2 Basophils % (Manual) 1.0 D Myelocytes % (Man) 0 Promyelocytes % (Man) 0 Blast Cells % (Manual) 0 Nucleated RBC % 0 Metamyelocytes 0 D Hypochromia 0 Platelet Estimate Normal Polychromasia 0 Poikilocytosis 0 Anisocytosis 1+ Microcytosis 1+ Macrocytosis 0 Target Cells 1+ Sodium 147 H Potassium 4.2 Chloride 103 Carbon Dioxide 34 H Anion Gap 10 BUN 62 H Creatinine 1.9 H Creat Clearance w eGFR 33.94 Random Glucose 139 H D Calcium 8.3 L Total Bilirubin 0.7 AST 9 L D ALT 22 Alkaline Phosphatase 83 D Total Protein 6.4 Albumin 2.4 L TSH 5.16 H Active Medications Generic Name Dose Route Start Last Admin Trade Name Freq PRN Reason Stop Dose Admin Acetaminophen 650 mg 06/24/18 14:46 07/10/18 21:28 Tylenol - PO 650 mg Q6H PRN Administration PAIN LEVEL 1-5 Albuterol Sulfate 1 amp 06/26/18 11:30 07/11/18 10:20 Ventolin 0.083% Nebulizer Soln - NEB 1 amp Q6H PRN Administration SHORT OF BREATH/WHEEZING Apixaban 2.5 mg 06/24/18 22:00 07/11/18 10:03 Eliquis - PO 2.5 mg BID JAGDEEP Administration Atorvastatin Calcium 10 mg 06/25/18 22:00 07/10/18 21:28 Lipitor - PO 10 mg HS JAGDEEP Administration Budesonide/Formoterol Fumarate 2 puff 06/24/18 22:00 07/11/18 10:04 Symbicort 80/4.5mcg - IH Not Given BID JAGDEEP Chlorhexidine Gluconate 1 applic 06/24/18 22:00 07/10/18 21:22 Hibiclens For Decolonization - TP Not Given HS JAGDEEP Diltiazem HCl 30 mg 07/10/18 15:00 07/11/18 06:15 Cardizem - PO 30 mg TID JAGDEEP Administration Furosemide 40 mg 07/07/18 10:00 07/11/18 10:02 Lasix Injection - IVPUSH 40 mg DAILY JAGDEEP Administration Hydralazine HCl 50 mg 06/30/18 14:00 07/11/18 06:15 Apresoline - PO 50 mg TID JAGDEEP Administration Meropenem 500 mg/ Dextrose 100 mls @ 200 mls/hr 07/10/18 18:00 07/11/18 06:15 IVPB 200 mls/hr BID@0600,1800 JAGDEEP Administration Levothyroxine Sodium 75 mcg 06/25/18 07:00 07/11/18 06:15 Synthroid - PO 75 mcg DAILY@0700 JAGDEEP Administration Methylprednisolone Sodium Succinate 40 mg 07/10/18 10:45 07/11/18 10:02 Solu-Medrol - IVPUSH 40 mg Q6H-IV JAGDEEP Administration Multivitamins/Minerals/Vitamin C 1 tab 06/25/18 10:00 07/11/18 10:03 Tab-A-Vit - PO 1 tab DAILY JAGDEEP Administration Pantoprazole Sodium 40 mg 06/28/18 10:00 07/11/18 10:03 Protonix - PO 40 mg DAILY JAGDEEP Administration Patient is a 82 year old male was sent from [facility] for worsening SOB ASSESSMENT Atrial fibrillation with flutter-rate controlled Acute hypoxic respiratory failure likely secondary to RLL pneumonia Leukocytosis Normocytic anemia COPD Diastolic CHF Hypertension- controlled Hypothyroidism Anxiety PLAN Leukocytosis: likely secondary to infection vs steroid use. During the course of admission, his WBC was rising likely due to infection vs use of steroids. But now it is trendng down. Steroids were on hold and was being monitored off antibiotics. But since his infection got worse, now on IV Meropenam and IV Steroids 40mg q6H. Now, leukocytosis seems to be improving. WBC is 10.9. So it is likely that leukocytosis was due to infection. Will repeat CBC in AM. SUNDAY-2, flow cytometry, bcr abl. LDH-pending and uric acid-5.7 which is normal.. Normocytic anemia H/H 9.4/28.7, no signs of bleeding Will send for Iron studies. Plan of care explained to the patient. He verbalized understanding. Case discussed with Dr. Dunlap Thank you for the consultative opportunity. Visit type - Emergency Visit Emergency Visit: Yes ED Registration Date: 06/24/18 Care time: The patient presented to the Emergency Department on the above date and was hospitalized for further evaluation of their emergent condition. - New Patient This patient is new to me today: No - Critical Care Critical Care patient: No - Discharge Referral Referred to [facility] No
--- NOTE | 2018-07-11 13:58 | PN ---
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 Pt refused, reporting "allergy to Barium." Pt barely eating, mainly Ensure with delayed "hacking" and Dyspnea reported, needs BIPAP. Pt reports he needs to dring water to push down Ensure. MBS with esophagus can not be done due to allergy to Barium, per pt. Esophageal dysphagia? with risk of retrograde aspiration? CT chest not yet done; pt not stable at this time. Esoph dilated/stricture? Pathology? Quite Dyspneic, but reported to be better than yesterday. Voice is loud and strong. I would suggest NPO for a couple of days, however, pt constantly begging for Ensure and water. No cough with trials of Ensure or thin water. Tongue WNL, no evidence of thrush. Always maintain HOB elevated, especially after PO intake, small amounts throughout the day.
[2018-07-11] MEDS: ACETAMINOPHEN 325 MG TABLET (FP) PO PRN ×2 (14:01→21:51)
--- NOTE | 2018-07-11 14:23 | PN ---
Progress Note (short form) - Note Progress Note: still tachypneic, but a bit improved Vital Signs Period Temp Pulse Resp BP Sys/De Santiago Pulse Ox Last 24 Hr 97.4 F-98.6 F 81-109 20-22 121-142/72-84 91-100 cor-rrr lungs crackles bilateral lower lobes right greater then left abd soft,nt ext no edema CBC, BMP 07/11/18 05:30 07/11/18 05:30 Microbiology 06/24/18 21:15 Blood - Peripheral Venous Blood Culture - Final NO GROWTH AFTER 5 DAYS INCUBATION 06/24/18 21:10 Blood - Peripheral Venous Blood Culture - Final NO GROWTH AFTER 5 DAYS INCUBATION 06/24/18 11:30 Blood - Peripheral Venous Blood Culture - Final NO GROWTH AFTER 5 DAYS INCUBATION 06/24/18 11:30 Blood - Peripheral Venous Blood Culture - Final NO GROWTH AFTER 5 DAYS INCUBATION 06/26/18 14:00 Nares - Mrsa Screen - Left MRSA Screen - Final NO MRSA ISOLATED 06/26/18 14:00 Nares - Mrsa Screen - Right MRSA Screen - Final NO MRSA ISOLATED 06/25/18 07:00 Sputum - Expectorated Gram Stain - Final 06/25/18 07:00 Sputum - Expectorated Sputum Culture - Final NORMAL RESPIRATORY JOANNA 06/24/18 19:50 Urine - Urine Clean Catch Legionella Antigen - Final 06/24/18 19:50 Urine - Urine Clean Catch Streptococcus pneumoniae Antigen ( M - Final 06/24/18 13:51 Urine - Urine Clean Catch Urine Culture - Final NO GROWTH OBTAINED Current Medications Acetaminophen (Tylenol -) 650 mg PO Q6H PRN PRN Reason: PAIN LEVEL 1-5 Last Admin: 07/11/18 14:01 Dose: 650 mg Albuterol Sulfate (Ventolin 0.083% Nebulizer Soln -) 1 amp NEB Q6H PRN PRN Reason: SHORT OF BREATH/WHEEZING Last Admin: 07/11/18 10:20 Dose: 1 amp Apixaban (Eliquis -) 2.5 mg PO BID JAGDEEP Last Admin: 07/11/18 10:03 Dose: 2.5 mg Atorvastatin Calcium (Lipitor -) 10 mg PO HS JAGDEEP Last Admin: 07/10/18 21:28 Dose: 10 mg Budesonide/Formoterol Fumarate (Symbicort 80/4.5mcg -) 2 puff IH BID JAGDEEP Last Admin: 07/11/18 10:04 Dose: Not Given Chlorhexidine Gluconate (Hibiclens For Decolonization -) 1 applic TP HS [facility] Last Admin: 07/10/18 21:22 Dose: Not Given Diltiazem HCl (Cardizem -) 30 mg PO TID [facility] Last Admin: 07/11/18 14:01 Dose: 30 mg Furosemide (Lasix Injection -) 40 mg IVPUSH DAILY [facility] Last Admin: 07/11/18 10:02 Dose: 40 mg Hydralazine HCl (Apresoline -) 50 mg PO TID [facility] Last Admin: 07/11/18 14:01 Dose: 50 mg Meropenem 500 mg/ Dextrose 100 mls @ 200 mls/hr IVPB BID@0600,1800 [facility] Last Admin: 07/11/18 06:15 Dose: 200 mls/hr Levothyroxine Sodium (Synthroid -) 75 mcg PO DAILY@0700 [facility] Last Admin: 07/11/18 06:15 Dose: 75 mcg Methylprednisolone Sodium Succinate (Solu-Medrol -) 40 mg IVPUSH Q6H-IV [facility] Last Admin: 07/11/18 14:01 Dose: 40 mg Multivitamins/Minerals/Vitamin C (Tab-A-Vit -) 1 tab PO DAILY [facility] Last Admin: 07/11/18 10:03 Dose: 1 tab Pantoprazole Sodium (Protonix -) 40 mg PO DAILY [facility] Last Admin: 07/11/18 10:03 Dose: 40 mg 2 cxray RLL infiltrate a/p resp failure with hypoxia-improved, leukocytosis improved suspect combination of infection and chf continue meropenem vanco level in am GERD copd exacerbation Penicillin allergy ckd afib prolonged Qtc Problem List - Problems (1) Respiratory failure with hypoxia Code(s): J96.91 - RESPIRATORY FAILURE, UNSPECIFIED WITH HYPOXIA (2) Pneumonia Code(s): J18.9 - PNEUMONIA, UNSPECIFIED ORGANISM (3) COPD exacerbation Code(s): J44.1 - CHRONIC OBSTRUCTIVE PULMONARY DISEASE W (ACUTE) EXACERBATION (4) CKD (chronic kidney disease) Code(s): N18.9 - CHRONIC KIDNEY DISEASE, UNSPECIFIED Qualifiers: Chronic kidney disease stage: unspecified stage Qualified Code(s): N18.9 - Chronic kidney disease, unspecified (5) Penicillin allergy Code(s): Z88.0 - ALLERGY STATUS TO PENICILLIN
[2018-07-11] MEDS ORDERED: PT OWN MED DRAWER 7, Y5N ONE ×3 (16:37→22:21)
--- NOTE | 2018-07-11 19:34 | PN ---
Teaching Attending Note Name of Resident: Cecilia Taylor ATTENDING PHYSICIAN STATEMENT I saw and evaluated the patient. I reviewed the resident's note and discussed the case with the resident. I agree with the resident's findings and plan as documented. SUBJECTIVE: Patient seen and examined Improvement in WBC more suggestive of reactive rather than myeloproliferative disorder. Studies are pending . OBJECTIVE: ASSESSMENT AND PLAN:
[2018-07-11] MEDS: CHLORHEXIDINE GLUCONATE 4% CLEANSER FOR DECOLONIZATION TP SCH (21:42)
[2018-07-11] MEDS: ATORVASTATIN CA 10 MG TABLET (FP) PO SCH (21:43)
[2018-07-12] MEDS: methylPREDNISolone NA SUCC 40 MG/1 ML VIAL IVPUSH SCH ×4 (03:00→22:15)
[2018-07-12] MEDS: ACETAMINOPHEN 325 MG TABLET (FP) PO PRN (03:00)
[2018-07-12] MEDS ORDERED: PT OWN MED DRAWER 7, Y5N ONE ×3 (06:12→22:41)
[2018-07-12 06:28] LABS: BASO % 0.2 % (0-2.0); HEMATOCRIT 27.8 % (35.4-49); LYMPH % 1.6 % (8-40); MCH 25.6 pg (25.7-33.7); MCHC 32.2 g/dl (32.0-35.9); MEAN CELL VOLUME 79.4 fl (80-96); MEAN PLT VOLUME 7.1 fl (7.5-11.1); MONO % 2.2 % (3.8-10.2); PLATELET COUNT 287 K/MM3 (134-434); RDW 19.6 % (11.9-15.9); WHITE BLOOD COUNT 16.9 K/mm3 (4.0-10.0)
[2018-07-12] MEDS: MEROPENEM 500 MG in DEXTROSE 5%-WATER 100 ML IVPB SCH ×2 (06:51→17:37)
[2018-07-12] MEDS: dilTIAZem HCL 30 MG TABLET (FP) PO SCH (06:52)
[2018-07-12] MEDS: hydrALAZINE HCL 50 MG TABLET (FP) PO SCH ×3 (06:52→22:15)
[2018-07-12] MEDS: LEVOTHYROXINE NA 75 MCG TABLET (FP) PO SCH (06:52)
[2018-07-12 07:03] LABS: CALCIUM 7.9 mg/dL (8.5-10.1); CHLORIDE 100 mmol/L (98-107); SGOT/AST 15 U/L (15-37); SODIUM 144 mmol/L (136-145)
[2018-07-12 07:11] LABS: ALBUMIN 2.4 g/dl (3.4-5.0); ALK PHOS 83 U/L (45-117); ANION GAP 8 MMOL/L (8-16); BILIRUBIN,TOTAL 0.4 mg/dL (0.2-1.0); BLOOD UREA NITROGEN 92 mg/dL (7-18); CO2 36 mmol/L (21-32); CREATININE 2.1 mg/dL (0.7-1.3); GLUCOSE,RANDOM 160 mg/dL (74-106); SGPT/ALT 24 U/L (13-61); TOT PROT 6.4 g/dl (6.4-8.2)
[2018-07-12] MEDS: ALBUTEROL SO4 0.083% IH SOL 2.5 MG/3 ML VIAL.NEB. NEB PRN ×4 (07:35→21:13)
--- NOTE | 2018-07-12 08:51 | PN ---
Progress Note, Physician Chief Complaint: Pt A&Ox3; feels better (less short of breath; no palpitations); "I was going backward for a few days, but now I feel I'm going forward again". History of Present Illness: The patient is an 82M w/ a PMH of COPD, a-fib (Eliquis), CKD, HLD, HTN, diastolic CHF, hypothyroidism who presents from his custodial ([facility] ) for worsening shortness of breath, fever (Tm 101.6), and hypoxia despite 3L NC. On arrival, the patient endorses worsening dyspnea and productive cough. He also reports chronic abdominal pain 2/2 hiatal hernia. Patient denies MCGRATH, acute vision change, chest pain, BLE swelling, or changes in sensation. - Current Medication List Current Medications: Active Medications Acetaminophen (Tylenol -) 650 mg PO Q6H PRN PRN Reason: PAIN LEVEL 1-5 Last Admin: 07/12/18 03:00 Dose: 650 mg Albuterol Sulfate (Ventolin 0.083% Nebulizer Soln -) 1 amp NEB Q6H PRN PRN Reason: SHORT OF BREATH/WHEEZING Last Admin: 07/12/18 07:35 Dose: 1 amp Apixaban (Eliquis -) 2.5 mg PO BID [facility] Last Admin: 07/11/18 21:42 Dose: 2.5 mg Atorvastatin Calcium (Lipitor -) 10 mg PO HS [facility] Last Admin: 07/11/18 21:43 Dose: 10 mg Budesonide/Formoterol Fumarate (Symbicort 80/4.5mcg -) 2 puff IH BID [facility] Last Admin: 07/11/18 22:30 Dose: 2 puff Chlorhexidine Gluconate (Hibiclens For Decolonization -) 1 applic TP [facility] Last Admin: 07/11/18 21:42 Dose: Not Given Diltiazem HCl (Cardizem -) 30 mg PO TID [facility] Last Admin: 07/12/18 06:52 Dose: 30 mg Furosemide (Lasix -) 40 mg PO DAILY [facility] Hydralazine HCl (Apresoline -) 50 mg PO TID [facility] Last Admin: 07/12/18 06:52 Dose: 50 mg Meropenem 500 mg/ Dextrose 100 mls @ 200 mls/hr IVPB BID@0600,1800 [facility] Last Admin: 07/12/18 06:51 Dose: 200 mls/hr Levothyroxine Sodium (Synthroid -) 75 mcg PO DAILY@0700 [facility] Last Admin: 07/12/18 06:52 Dose: 75 mcg Methylprednisolone Sodium Succinate (Solu-Medrol -) 40 mg IVPUSH Q6H-IV [facility] Last Admin: 07/12/18 03:00 Dose: 40 mg Multivitamins/Minerals/Vitamin C (Tab-A-Vit -) 1 tab PO DAILY [facility] Last Admin: 07/11/18 10:03 Dose: 1 tab Pantoprazole Sodium (Protonix -) 40 mg PO DAILY [facility] Last Admin: 07/11/18 10:03 Dose: 40 mg - Objective Vital Signs: Vital Signs Temperature 97.0 F L 07/12/18 05:00 Pulse Rate 80 07/12/18 05:00 Respiratory Rate 20 07/12/18 05:00 Blood Pressure 103/56 07/12/18 05:00 O2 Sat by Pulse Oximetry (%) 99 07/12/18 06:08 Constitutional: Yes: Calm Eyes: Yes: WNL HENT: Yes: WNL Neck: Yes: WNL Cardiovascular: Yes: Pulse Irregular, S1 (varies in intensity) Respiratory: Yes: Diminished Gastrointestinal: Yes: Soft ...Rectal Exam: Yes: Deferred Genitourinary: No: Anuria Musculoskeletal: Yes: Muscle Weakness Extremities: Yes: Cool Edema: No Peripheral Pulses WNL: Yes Integumentary: Yes: WNL Neurological: Yes: Alert, Oriented, Weakness Psychiatric: Yes: Alert, Oriented Labs: CBC, BMP 07/12/18 05:30 07/12/18 05:30 INR, PTT INR 2.08 (0.83-1.09) H 06/24/18 11:30 Problem List - Problems (1) Atrial flutter Assessment/Plan: Diltiazem CD 120 mg daily for HR control. Continue apixaban for anticoagulation. Code(s): I48.92 - UNSPECIFIED ATRIAL FLUTTER (2) CKD (chronic kidney disease) Code(s): N18.9 - CHRONIC KIDNEY DISEASE, UNSPECIFIED Qualifiers: Chronic kidney disease stage: unspecified stage Qualified Code(s): N18.9 - Chronic kidney disease, unspecified (3) COPD exacerbation Assessment/Plan: hx exposure to 2nd hand smoke. Gives hx of "asthma". On bronchodilators, steroids, O2, Bipap per pulmonary. Rx for PNA Code(s): J44.1 - CHRONIC OBSTRUCTIVE PULMONARY DISEASE W (ACUTE) EXACERBATION (4) Chronic diastolic CHF (congestive heart failure) Assessment/Plan: Rising BUN/Cr. Avoid diuretics. -JVD Repeat CXR. Code(s): I50.32 - CHRONIC DIASTOLIC (CONGESTIVE) HEART FAILURE (5) GERD (gastroesophageal reflux disease) Code(s): K21.9 - GASTRO-ESOPHAGEAL REFLUX DISEASE WITHOUT ESOPHAGITIS Qualifiers: Esophagitis presence: esophagitis presence not specified Qualified Code(s) : K21.9 - Gastro-esophageal reflux disease without esophagitis (6) HTN (hypertension) Assessment/Plan: On nifedipine (now changed to diltiazem), hydralazine and furosemide. Code(s): I10 - ESSENTIAL (PRIMARY) HYPERTENSION Qualifiers: Hypertension type: essential hypertension Qualified Code(s): I10 - Essential (primary) hypertension (7) Hypothyroidism Code(s): E03.9 - HYPOTHYROIDISM, UNSPECIFIED Qualifiers: Hypothyroidism type: unspecified Qualified Code(s): E03.9 - Hypothyroidism , unspecified (8) Renal dysfunction Assessment/Plan: Rising BUN/Cr. Avoid dehydration. Code(s): N28.9 - DISORDER OF KIDNEY AND URETER, UNSPECIFIED
[2018-07-12] MEDS ORDERED: FUROSEMIDE 40 MG TABLET (FP) PO SCH (10:00)
[2018-07-12] MEDS: PANTOPRAZOLE 40 MG TABLET (FP) PO SCH (10:01)
[2018-07-12] MEDS: MULTIVITAMINS (DAILY MVI) TABLET (FP) PO SCH (10:01)
[2018-07-12] MEDS: APIXABAN 2.5 MG TABLET PO SCH ×2 (10:01→22:15)
[2018-07-12] MEDS: BUDESONIDE/FORMETEROL FUMARATE 80/4.5 mcg INHALER IH SCH ×2 (10:07→22:15)
[2018-07-12 10:31] LABS: ANISOCYTOSIS 1+; MACROCYTOSIS 1+; PLATELET ESTIMATE NORMAL; TARGET CELLS 1+
--- NOTE | 2018-07-12 11:13 | PN ---
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 Good appetite, frequently hungry. Pt does not cough while eating or drinking. On Bipap.
--- NOTE | 2018-07-12 12:01 | PN ---
Physical Exam: SUBJECTIVE: Patient seen and examined at bed side this morning. On Bipap (11/03) . Can speak a full sentence. Denies chest pain, palpitations, abdominal pain, nausea or vomiting. OBJECTIVE: Vital Signs Period Temp Pulse Resp BP Sys/De Santiago Pulse Ox Last 24 Hr 97.0 F-98.5 F 79-93 20-22 103-142/56-79 94-100 GENERAL: Elderly male, Awake, alert, and fully oriented, in no acute distress. HEAD: Normal with no signs of trauma. EYES: EOM intact, pallor or icterus. EARS, NOSE, THROAT: Ears normal. Dry mucous membranes. NECK: Supple, JVD + LUNGS: Tachypneic, B/L coarse breath sounds equal. No wheeze. No accessory muscle use. HEART: Tachycardic, Irregularly irregular rate and rhythm, normal S1 and S2 with systolic murmur. ABDOMEN: Soft, nontender, no hepatomegaly or splenomegaly. MUSCULOSKELETAL: Normal range of motion at all joints. No bony deformities or tenderness. No CVA tenderness. UPPER EXTREMITIES: 2+ pulses, warm, well-perfused. No cyanosis. No clubbing. Cap refill <2 seconds. No peripheral edema. LOWER EXTREMITIES: 2+ pulses, warm, well-perfused. No calf tenderness. No peripheral edema. NEUROLOGICAL: No facial droop. Normal speech.Gait not observed. PSYCHIATRIC: Cooperative. Good eye contact. Appropriate mood and affect. SKIN: Warm, dry, normal turgor, no rashes or lesions noted. Laboratory Results - last 24 hr 07/12/18 07/12/18 07/12/18 05:30 05:30 05:30 WBC 16.9 H RBC 3.50 L Hgb 9.0 L Hct 27.8 L MCV 79.4 L MCH 25.6 L MCHC 32.2 RDW 19.6 H Plt Count 287 MPV 7.1 L Absolute Neuts (auto) 16.3 H Neutrophils % 96.0 H Neutrophils % (Manual) 98.0 H Band Neutrophils % 0.0 Lymphocytes % 1.6 L D Lymphocytes % (Manual) 2.0 L Monocytes % 2.2 L Monocytes % (Manual) 0 L D Eosinophils % 0.0 Eosinophils % (Manual) 0.0 Basophils % 0.2 Basophils % (Manual) 0.0 Myelocytes % (Man) 0 Promyelocytes % (Man) 0 Blast Cells % (Manual) 0 Nucleated RBC % 0 Metamyelocytes 0 Hypochromia 0 Platelet Estimate Normal Polychromasia 0 Poikilocytosis 0 Anisocytosis 1+ Microcytosis 1+ Macrocytosis 1+ Target Cells 1+ Sodium 144 Potassium 4.0 Chloride 100 Carbon Dioxide 36 H Anion Gap 8 BUN 92 H D Creatinine 2.1 H Creat Clearance w eGFR 30.24 Random Glucose 160 H Calcium 7.9 L Ferritin 304.4 H Total Bilirubin 0.4 AST 15 ALT 24 Alkaline Phosphatase 83 Total Protein 6.4 Albumin 2.4 L Free T4 0.95 Random Vancomycin 6.66 07/12/18 05:30 WBC RBC Hgb Hct MCV MCH MCHC RDW Plt Count MPV Absolute Neuts (auto) Neutrophils % Neutrophils % (Manual) Band Neutrophils % Lymphocytes % Lymphocytes % (Manual) Monocytes % Monocytes % (Manual) Eosinophils % Eosinophils % (Manual) Basophils % Basophils % (Manual) Myelocytes % (Man) Promyelocytes % (Man) Blast Cells % (Manual) Nucleated RBC % Metamyelocytes Hypochromia Platelet Estimate Polychromasia Poikilocytosis Anisocytosis Microcytosis Macrocytosis Target Cells Sodium Potassium Chloride Carbon Dioxide Anion Gap BUN Creatinine Creat Clearance w eGFR Random Glucose Calcium Ferritin Total Bilirubin AST ALT Alkaline Phosphatase Total Protein Albumin Free T4 Cancelled Random Vancomycin Active Medications Generic Name Dose Route Start Last Admin Trade Name Freq PRN Reason Stop Dose Admin Acetaminophen 650 mg 06/24/18 14:46 07/12/18 03:00 Tylenol - PO 650 mg Q6H PRN Administration PAIN LEVEL 1-5 Albuterol Sulfate 1 amp 06/26/18 11:30 07/12/18 11:47 Ventolin 0.083% Nebulizer Soln - NEB 1 amp Q6H PRN Administration SHORT OF BREATH/WHEEZING Apixaban 2.5 mg 06/24/18 22:00 07/12/18 10:01 Eliquis - PO 2.5 mg BID JAGDEEP Administration Atorvastatin Calcium 10 mg 06/25/18 22:00 07/11/18 21:43 Lipitor - PO 10 mg HS JAGDEEP Administration Budesonide/Formoterol Fumarate 2 puff 06/24/18 22:00 07/12/18 10:07 Symbicort 80/4.5mcg - IH 2 puff BID JAGDEEP Administration Chlorhexidine Gluconate 1 applic 06/24/18 22:00 07/11/18 21:42 Hibiclens For Decolonization - TP Not Given HS JAGDEEP Diltiazem HCl 120 mg 07/12/18 10:00 07/12/18 10:01 Cardizem Cd - PO 120 mg DAILY JAGDEEP Administration Hydralazine HCl 50 mg 06/30/18 14:00 07/12/18 06:52 Apresoline - PO 50 mg TID JGADEEP Administration Meropenem 500 mg/ Dextrose 100 mls @ 200 mls/hr 07/10/18 18:00 07/12/18 06:51 IVPB 200 mls/hr BID@0600,1800 JAGDEEP Administration Levothyroxine Sodium 75 mcg 06/25/18 07:00 07/12/18 06:52 Synthroid - PO 75 mcg DAILY@0700 JAGDEEP Administration Methylprednisolone Sodium Succinate 40 mg 07/10/18 10:45 07/12/18 10:01 Solu-Medrol - IVPUSH 40 mg Q6H-IV JAGDEEP Administration Multivitamins/Minerals/Vitamin C 1 tab 06/25/18 10:00 07/12/18 10:01 Tab-A-Vit - PO 1 tab DAILY JAGDEEP Administration Pantoprazole Sodium 40 mg 06/28/18 10:00 07/12/18 10:01 Protonix - PO 40 mg DAILY JAGDEEP Administration Patient is a 82 year old male was sent from [facility] for worsening SOB ASSESSMENT Atrial fibrillation with flutter-rate controlled Acute hypoxic respiratory failure likely secondary to RLL pneumonia Leukocytosis CKD Normocytic anemia COPD Diastolic CHF Hypertension- controlled Hypothyroidism Anxiety PLAN Leukocytosis: likely secondary to infection vs steroid use. During the course of admission, his WBC was rising likely due to infection vs use of steroids. Steroids were on hold and was being monitored off antibiotics. But since his infection got worse, now on IV Meropenam and IV Steroids 40mg q6H. WBC is 16.9. It is likely that leukocytosis was due to infection. Will repeat CBC in AM. SUNDAY-2, flow cytometry, bcr abl. LDH-pending and uric acid-5.7 which is normal.. Normocytic anemia H/H 9.0/27.8, no signs of bleeding Iron studies pending. Plan of care explained to the patient. He verbalized understanding. Case discussed with Dr. Tillman Thank you for the consultative opportunity. Visit type - Emergency Visit Emergency Visit: Yes ED Registration Date: 06/24/18 Care time: The patient presented to the Emergency Department on the above date and was hospitalized for further evaluation of their emergent condition. - New Patient This patient is new to me today: No - Critical Care Critical Care patient: No - Discharge Referral Referred to [facility] No
--- NOTE | 2018-07-12 12:48 | PN ---
Progress Note (short form) - Note Progress Note: Progress Note (short form) - Note Progress Note: on ventimask-- O2 sat 86-88% denies pain states he feels better but does appear to be dyspneic- he likes BIPAP better Vital Signs - 24 hr 07/11/18 07/11/18 07/11/18 13:27 16:45 18:00 Temperature 98.3 F 98.2 F Pulse Rate 91 H 86 Respiratory 22 Rate Blood Pressure 142/72 125/71 O2 Sat by Pulse 94 L Oximetry (%) 07/11/18 07/11/18 07/12/18 20:26 21:00 00:02 Temperature 98.5 F Pulse Rate 93 H Respiratory 22 Rate Blood Pressure 123/62 O2 Sat by Pulse 95 94 L 100 Oximetry (%) 07/12/18 07/12/18 07/12/18 01:00 05:00 06:08 Temperature 97.5 F L 97.0 F L Pulse Rate 79 80 Respiratory 22 20 Rate Blood Pressure 117/79 103/56 O2 Sat by Pulse 99 Oximetry (%) 07/12/18 09:00 Temperature 97.9 F Pulse Rate 80 Respiratory 21 Rate Blood Pressure 132/75 O2 Sat by Pulse 97 Oximetry (%) Current Medications Generic Name Dose Route Start Last Admin Trade Name Freq PRN Reason Stop Dose Admin Acetaminophen 650 mg 06/24/18 14:46 07/12/18 03:00 Tylenol - PO 650 mg Q6H PRN Administration PAIN LEVEL 1-5 Albuterol Sulfate 1 amp 06/26/18 11:30 07/12/18 11:47 Ventolin 0.083% Nebulizer Soln - NEB 1 amp Q6H PRN Administration SHORT OF BREATH/WHEEZING Apixaban 2.5 mg 06/24/18 22:00 07/12/18 10:01 Eliquis - PO 2.5 mg BID JAGDEEP Administration Atorvastatin Calcium 10 mg 06/25/18 22:00 07/11/18 21:43 Lipitor - PO 10 mg HS JAGDEEP Administration Budesonide/Formoterol Fumarate 2 puff 06/24/18 22:00 07/12/18 10:07 Symbicort 80/4.5mcg - IH 2 puff BID JAGDEEP Administration Chlorhexidine Gluconate 1 applic 06/24/18 22:00 07/11/18 21:42 Hibiclens For Decolonization - TP Not Given HS JAGDEEP Diltiazem HCl 120 mg 07/12/18 10:00 07/12/18 10:01 Cardizem Cd - PO 120 mg DAILY JAGDEEP Administration Hydralazine HCl 50 mg 06/30/18 14:00 07/12/18 06:52 Apresoline - PO 50 mg TID JAGDEEP Administration Meropenem 500 mg/ Dextrose 100 mls @ 200 mls/hr 07/10/18 18:00 07/12/18 06:51 IVPB 200 mls/hr BID@0600,1800 JAGDEEP Administration Levothyroxine Sodium 75 mcg 06/25/18 07:00 07/12/18 06:52 Synthroid - PO 75 mcg DAILY@0700 JAGDEEP Administration Methylprednisolone Sodium Succinate 40 mg 07/10/18 10:45 07/12/18 10:01 Solu-Medrol - IVPUSH 40 mg Q6H-IV JAGDEEP Administration Multivitamins/Minerals/Vitamin C 1 tab 06/25/18 10:00 07/12/18 10:01 Tab-A-Vit - PO 1 tab DAILY JAGDEEP Administration Pantoprazole Sodium 40 mg 06/28/18 10:00 07/12/18 10:01 Protonix - PO 40 mg DAILY JAGDEEP Administration Laboratory Results - last 24 hr 07/12/18 07/12/18 07/12/18 05:30 05:30 05:30 WBC 16.9 H RBC 3.50 L Hgb 9.0 L Hct 27.8 L MCV 79.4 L MCH 25.6 L MCHC 32.2 RDW 19.6 H Plt Count 287 MPV 7.1 L Absolute Neuts (auto) 16.3 H Neutrophils % 96.0 H Neutrophils % (Manual) 98.0 H Band Neutrophils % 0.0 Lymphocytes % 1.6 L D Lymphocytes % (Manual) 2.0 L Monocytes % 2.2 L Monocytes % (Manual) 0 L D Eosinophils % 0.0 Eosinophils % (Manual) 0.0 Basophils % 0.2 Basophils % (Manual) 0.0 Myelocytes % (Man) 0 Promyelocytes % (Man) 0 Blast Cells % (Manual) 0 Nucleated RBC % 0 Metamyelocytes 0 Hypochromia 0 Platelet Estimate Normal Polychromasia 0 Poikilocytosis 0 Anisocytosis 1+ Microcytosis 1+ Macrocytosis 1+ Target Cells 1+ Sodium 144 Potassium 4.0 Chloride 100 Carbon Dioxide 36 H Anion Gap 8 BUN 92 H D Creatinine 2.1 H Creat Clearance w eGFR 30.24 Random Glucose 160 H Calcium 7.9 L Ferritin 304.4 H Total Bilirubin 0.4 AST 15 ALT 24 Alkaline Phosphatase 83 Total Protein 6.4 Albumin 2.4 L Free T4 0.95 Random Vancomycin 6.66 07/12/18 05:30 WBC RBC Hgb Hct MCV MCH MCHC RDW Plt Count MPV Absolute Neuts (auto) Neutrophils % Neutrophils % (Manual) Band Neutrophils % Lymphocytes % Lymphocytes % (Manual) Monocytes % Monocytes % (Manual) Eosinophils % Eosinophils % (Manual) Basophils % Basophils % (Manual) Myelocytes % (Man) Promyelocytes % (Man) Blast Cells % (Manual) Nucleated RBC % Metamyelocytes Hypochromia Platelet Estimate Polychromasia Poikilocytosis Anisocytosis Microcytosis Macrocytosis Target Cells Sodium Potassium Chloride Carbon Dioxide Anion Gap BUN Creatinine Creat Clearance w eGFR Random Glucose Calcium Ferritin Total Bilirubin AST ALT Alkaline Phosphatase Total Protein Albumin Free T4 Cancelled Random Vancomycin Physical Examination Constitutional: Yes: alert and awake Eyes: Yes: Conjunctiva Clear Neck: Yes: Supple, Other (no jvd) Cardiovascular: Yes: Pulse Irregular Respiratory: Yes:ronchi+, decreased breath sounds B/l Gastrointestinal: Yes: Soft/ non tender . bowel sound present, no edema Neurological: Yes: Alert Psychiatric: Yes: Alert Assessment/Plan BIPAP as needed Continue present care Abx iv steroids clinical condition- guarded monitor nebulizer treatment dc Lasix-- acute renal failure-- renal eval Problem List - Problems (1) Respiratory failure with hypoxia Code(s): J96.91 - RESPIRATORY FAILURE, UNSPECIFIED WITH HYPOXIA (2) Chronic diastolic CHF (congestive heart failure) Code(s): I50.32 - CHRONIC DIASTOLIC (CONGESTIVE) HEART FAILURE (3) HTN (hypertension) Code(s): I10 - ESSENTIAL (PRIMARY) HYPERTENSION Qualifiers: Hypertension type: essential hypertension Qualified Code(s): I10 - Essential (primary) hypertension (4) Hypothyroidism Code(s): E03.9 - HYPOTHYROIDISM, UNSPECIFIED Qualifiers: Hypothyroidism type: unspecified Qualified Code(s): E03.9 - Hypothyroidism , unspecified (5) Paroxysmal A-fib Code(s): I48.0 - PAROXYSMAL ATRIAL FIBRILLATION
--- NOTE | 2018-07-12 14:43 | PN ---
Progress Note (short form) - Note Progress Note: PULMONARY Back on BiPAP on 50% FiO2. Vital Signs Period Temp Pulse Resp BP Sys/De Santiago Pulse Ox Last 24 Hr 97.0 F-98.5 F 79-93 20-22 103-132/56-79 93-100 Gen: tachypneic on BiPAP Heart: RRR Lung: distant breath sounds Abd: soft, nontender Ext: no edema CBC, BMP 07/12/18 05:30 07/12/18 05:30 Active Medications Acetaminophen (Tylenol -) 650 mg PO Q6H PRN PRN Reason: PAIN LEVEL 1-5 Last Admin: 07/12/18 03:00 Dose: 650 mg Albuterol Sulfate (Ventolin 0.083% Nebulizer Soln -) 1 amp NEB Q6H PRN PRN Reason: SHORT OF BREATH/WHEEZING Last Admin: 07/12/18 11:47 Dose: 1 amp Apixaban (Eliquis -) 2.5 mg PO BID [facility] Last Admin: 07/12/18 10:01 Dose: 2.5 mg Atorvastatin Calcium (Lipitor -) 10 mg PO HS [facility] Last Admin: 07/11/18 21:43 Dose: 10 mg Budesonide/Formoterol Fumarate (Symbicort 80/4.5mcg -) 2 puff IH BID [facility] Last Admin: 07/12/18 10:07 Dose: 2 puff Chlorhexidine Gluconate (Hibiclens For Decolonization -) 1 applic TP HS [facility] Last Admin: 07/11/18 21:42 Dose: Not Given Diltiazem HCl (Cardizem Cd -) 120 mg PO DAILY [facility] Last Admin: 07/12/18 10:01 Dose: 120 mg Hydralazine HCl (Apresoline -) 50 mg PO TID [facility] Last Admin: 07/12/18 06:52 Dose: 50 mg Meropenem 500 mg/ Dextrose 100 mls @ 200 mls/hr IVPB BID@0600,1800 [facility] Last Admin: 07/12/18 06:51 Dose: 200 mls/hr Levothyroxine Sodium (Synthroid -) 75 mcg PO DAILY@0700 [facility] Last Admin: 07/12/18 06:52 Dose: 75 mcg Methylprednisolone Sodium Succinate (Solu-Medrol -) 40 mg IVPUSH Q6H-IV [facility] Last Admin: 07/12/18 10:01 Dose: 40 mg Multivitamins/Minerals/Vitamin C (Tab-A-Vit -) 1 tab PO DAILY [facility] Last Admin: 07/12/18 10:01 Dose: 1 tab Pantoprazole Sodium (Protonix -) 40 mg PO DAILY [facility] Last Admin: 07/12/18 10:01 Dose: 40 mg A/P Acute on Chronic Hypoxic Respiratory Failure Pneumonia Acute Kidney Injury Acute COPD Exacerbation Acute on Chronic Diastolic Heart Failure Pulmonary HTN Atrial Flutter with RVR HTN Hyperlipidemia Hypothyroidism - continue antibiotics per ID - continue medrol - inhaled bronchodilators standing and PRN - lasix as needed - BiPAP to assist in work of breathing - taper FiO2 to keep SpO2>90% - rate control - anticoagulation - monitor urine output, creatinine - prognosis guarded
--- NOTE | 2018-07-12 15:36 | EKG ---
Test Reason : Blood Pressure : / mmHG Vent. Rate : 080 BPM Atrial Rate : 240 BPM P-R Int : 000 ms QRS Dur : 100 ms QT Int : 406 ms P-R-T Axes : 071 046 072 degrees QTc Int : 468 ms ATRIAL FLUTTER WITH VARIABLE A-V BLOCK ABNORMAL ECG WHEN COMPARED WITH ECG OF 06-JUL-2018 17:33, INVERTED T WAVES HAVE REPLACED NONSPECIFIC T WAVE ABNORMALITY IN LATERAL LEADS Confirmed by LAURY VILLALPANDO, YUNIEL ([id number]) on 07/12/2018 3:36:46 PM Referred By: JADE GOULD Confirmed By:YUNIEL SCHAEFFER MD
--- NOTE | 2018-07-12 15:42 | CONSULT ---
Consult - text type - Consultation Consultation Note: Renal Consult for ANNALISA This is a 82 year old AA gentleman with history of CKD, Hyperlipidemia, CHF, COPD, Afib, Hypothyroidism who presented with SOB and Fever and found to have PNA + CHF and developed ANNALISA. Baseline Cr is unclear but Cr ranged from 1.8 to 1.6 to 2.1. Pt was on IV Lasix once daily during this admission up until today when Cr was noted to be 2.1. Pt denies any history of CKD, Kidney stones, recurrent UTI's. Denies any flank pain, hematuria or dysuria. No contrast exposure. No [place] or ARB given. Pt reports making urine w/o difficulty. No fever , chills, rash, abd pain, N/V/D. PMhx: as above Allergies: As listed in EMR Family Hx: NC Social Hx: NO T/A/D ROS: as per HPI, all other pertinent ros negative Home Medications Medication Instructions Recorded Albuterol 2.5/Ipratropium 0.5 1 neb IH QID 06/24/18 [Duoneb -] Albuterol Sulfate Inhaler - 1 puff IH DAILY 06/24/18 [Ventolin Hfa Inhaler -] Apixaban [Eliquis] 2.5 mg PO BID 06/24/18 Azithromycin [Zithromax -] 500 mg PO DAILY 06/24/18 Fluticasone Propionate [Flovent 50 mcg IH BID 06/24/18 Diskus] Fluticasone/Salmeterol [Advair 1 each IH BID 06/24/18 250-50 Diskus] Furosemide 40 mg PO DAILY 06/24/18 Hydralazine HCl 100 mg PO TID 06/24/18 Levothyroxine [Synthroid -] 75 mcg PO DAILY 06/24/18 Multivit-Min/FA/Lycopen/Lutein 1 each PO DAILY 06/24/18 [Centrum Silver Tablet] Nifedipine ER [Procardia Xl -] 90 mg PO DAILY 06/24/18 Pantoprazole Sodium [Protonix] 40 mg PO DAILY 06/24/18 Potassium Chloride 10 meq PO DAILY 06/24/18 Simvastatin 10 mg PO DAILY 06/24/18 Vital Signs Temperature 98 F 07/12/18 14:00 Pulse Rate 81 07/12/18 14:00 Respiratory Rate 20 07/12/18 14:00 Blood Pressure 116/68 07/12/18 14:00 O2 Sat by Pulse Oximetry (%) 93 L 07/12/18 13:49 Intake & Output 07/09/18 07/10/18 07/11/18 07/12/18 23:59 23:59 23:59 23:59 Intake Total 800 1088 590 400 Output Total 879 335 8940 300 Balance -150 463 -610 100 Weight 83.007 kg NAD awake and alert Neck supple, No JVD RRR, No M/R Dec BS, some course BS right LL soft NT/ND No LE edema, clubbing or cyanosis CBC, BMP 07/12/18 05:30 07/12/18 05:30 Current Medications Acetaminophen (Tylenol -) 650 mg PO Q6H PRN PRN Reason: PAIN LEVEL 1-5 Last Admin: 07/12/18 03:00 Dose: 650 mg Albuterol Sulfate (Ventolin 0.083% Nebulizer Soln -) 1 amp NEB Q6H PRN PRN Reason: SHORT OF BREATH/WHEEZING Last Admin: 07/12/18 11:47 Dose: 1 amp Apixaban (Eliquis -) 2.5 mg PO BID [facility] Last Admin: 07/12/18 10:01 Dose: 2.5 mg Atorvastatin Calcium (Lipitor -) 10 mg PO HS [facility] Last Admin: 07/11/18 21:43 Dose: 10 mg Budesonide/Formoterol Fumarate (Symbicort 80/4.5mcg -) 2 puff IH BID [facility] Last Admin: 07/12/18 10:07 Dose: 2 puff Chlorhexidine Gluconate (Hibiclens For Decolonization -) 1 applic TP [facility] Last Admin: 07/11/18 21:42 Dose: Not Given Diltiazem HCl (Cardizem Cd -) 120 mg PO DAILY [facility] Last Admin: 07/12/18 10:01 Dose: 120 mg Hydralazine HCl (Apresoline -) 50 mg PO TID [facility] Last Admin: 07/12/18 06:52 Dose: 50 mg Meropenem 500 mg/ Dextrose 100 mls @ 200 mls/hr IVPB BID@0600,1800 [facility] Last Admin: 07/12/18 06:51 Dose: 200 mls/hr Levothyroxine Sodium (Synthroid -) 75 mcg PO DAILY@0700 [facility] Last Admin: 07/12/18 06:52 Dose: 75 mcg Methylprednisolone Sodium Succinate (Solu-Medrol -) 40 mg IVPUSH Q6H-IV [facility] Last Admin: 07/12/18 10:01 Dose: 40 mg Multivitamins/Minerals/Vitamin C (Tab-A-Vit -) 1 tab PO DAILY [facility] Last Admin: 07/12/18 10:01 Dose: 1 tab Pantoprazole Sodium (Protonix -) 40 mg PO DAILY [facility] Last Admin: 07/12/18 10:01 Dose: 40 mg 82 year old AA gentleman with history of CKD, Hyperlipidemia, CHF, COPD, Afib, Hypothyroidism who presented with SOB and Fever and found to have PNA + CHF and developed ANNALISA. #ANNALISA on CKD likely due to intravascular volume depletion in setting of IV diuretics #CKD #PNA #CHF #COPD/Reactive airway disease #Anemia Likely etiology of kidney injury is intravascular volume depletion in setting of diuretics (metabolic alkalosis, high BUN/Cr ratio) Check FeUra, FeNa, UPCR and Renal US agree with holding diuretics for now but is there is concern about worsening respiratory status can give PRN Lasix consider CT chest to distinguish effusion from infiltrate on the lungs High BUN in part due to steroids as well and not a marker of uremia no indication for [employer] at the present time Pulmonary follow up BIPAP as needed Abx as per primary Thank you Will follow Pravin Veras DO
--- NOTE | 2018-07-12 18:12 | PN ---
Progress Note (short form) - Note Progress Note: still tachypneic Vital Signs Period Temp Pulse Resp BP Sys/De [place] Pulse Ox Last 24 Hr 97.0 F-98.5 F 79-93 20-22 103-132/56-79 93-100 cor-rrr lungs decreased bs at bases, right base crackles abd soft,nt ext no edema CBC, BMP 07/12/18 05:30 07/12/18 05:30 Microbiology 07/10/18 19:30 Urine For Antigen Detection Legionella Antigen - Final 07/10/18 19:30 Urine For Antigen Detection Streptococcus pneumoniae Antigen (M - Final 06/24/18 21:15 Blood - Peripheral Venous Blood Culture - Final NO GROWTH AFTER 5 DAYS INCUBATION 06/24/18 21:10 Blood - Peripheral Venous Blood Culture - Final NO GROWTH AFTER 5 DAYS INCUBATION 06/24/18 11:30 Blood - Peripheral Venous Blood Culture - Final NO GROWTH AFTER 5 DAYS INCUBATION 06/24/18 11:30 Blood - Peripheral Venous Blood Culture - Final NO GROWTH AFTER 5 DAYS INCUBATION 06/26/18 14:00 Nares - Mrsa Screen - Left MRSA Screen - Final NO MRSA ISOLATED 06/26/18 14:00 Nares - Mrsa Screen - Right MRSA Screen - Final NO MRSA ISOLATED 06/25/18 07:00 Sputum - Expectorated Gram Stain - Final 06/25/18 07:00 Sputum - Expectorated Sputum Culture - Final NORMAL RESPIRATORY JOANNA 06/24/18 19:50 Urine - Urine Clean Catch Legionella Antigen - Final 06/24/18 19:50 Urine - Urine Clean Catch Streptococcus pneumoniae Antigen ( M - Final 06/24/18 13:51 Urine - Urine Clean Catch Urine Culture - Final NO GROWTH OBTAINED Current Medications Acetaminophen (Tylenol -) 650 mg PO Q6H PRN PRN Reason: PAIN LEVEL 1-5 Last Admin: 07/12/18 03:00 Dose: 650 mg Albuterol Sulfate (Ventolin 0.083% Nebulizer Soln -) 1 amp NEB Q6H PRN PRN Reason: SHORT OF BREATH/WHEEZING Last Admin: 07/12/18 15:57 Dose: 1 amp Apixaban (Eliquis -) 2.5 mg PO BID [facility] Last Admin: 07/12/18 10:01 Dose: 2.5 mg Atorvastatin Calcium (Lipitor -) 10 mg PO HS [facility] Last Admin: 07/11/18 21:43 Dose: 10 mg Budesonide/Formoterol Fumarate (Symbicort 80/4.5mcg -) 2 puff IH BID [facility] Last Admin: 07/12/18 10:07 Dose: 2 puff Chlorhexidine Gluconate (Hibiclens For Decolonization -) 1 applic TP HS [facility] Last Admin: 07/11/18 21:42 Dose: Not Given Diltiazem HCl (Cardizem Cd -) 120 mg PO DAILY [facility] Last Admin: 07/12/18 10:01 Dose: 120 mg Hydralazine HCl (Apresoline -) 50 mg PO TID [facility] Last Admin: 07/12/18 14:59 Dose: 50 mg Meropenem 500 mg/ Dextrose 100 mls @ 200 mls/hr IVPB BID@0600,1800 [facility] Last Admin: 07/12/18 17:37 Dose: 200 mls/hr Levothyroxine Sodium (Synthroid -) 75 mcg PO DAILY@0700 [facility] Last Admin: 07/12/18 06:52 Dose: 75 mcg Methylprednisolone Sodium Succinate (Solu-Medrol -) 40 mg IVPUSH Q6H-IV [facility] Last Admin: 07/12/18 15:59 Dose: 40 mg Multivitamins/Minerals/Vitamin C (Tab-A-Vit -) 1 tab PO DAILY [facility] Last Admin: 07/12/18 10:01 Dose: 1 tab Pantoprazole Sodium (Protonix -) 40 mg PO DAILY [facility] Last Admin: 07/12/18 10:01 Dose: 40 mg 2 cxray RLL infiltrate a/p resp failure with hypoxia-improved, leukocytosis improved suspect combination of infection and chf continue meropenem vanco level 6, redose consider chest ct when he is able to lay flat GERD copd exacerbation Penicillin allergy ckd afib prolonged Qtc Problem List - Problems (1) Respiratory failure with hypoxia Code(s): J96.91 - RESPIRATORY FAILURE, UNSPECIFIED WITH HYPOXIA (2) Pneumonia Code(s): J18.9 - PNEUMONIA, UNSPECIFIED ORGANISM (3) COPD exacerbation Code(s): J44.1 - CHRONIC OBSTRUCTIVE PULMONARY DISEASE W (ACUTE) EXACERBATION (4) CKD (chronic kidney disease) Code(s): N18.9 - CHRONIC KIDNEY DISEASE, UNSPECIFIED Qualifiers: Chronic kidney disease stage: unspecified stage Qualified Code(s): N18.9 - Chronic kidney disease, unspecified (5) Penicillin allergy Code(s): Z88.0 - ALLERGY STATUS TO PENICILLIN
[2018-07-12] MEDS ORDERED: VANCOMYCIN 1,000 MG in DEXTROSE 5%-WATER - 250 ML IVPB ONE (19:00)
[2018-07-12] MEDS: CHLORHEXIDINE GLUCONATE 4% CLEANSER FOR DECOLONIZATION TP SCH (22:11)
[2018-07-12] MEDS: ATORVASTATIN CA 10 MG TABLET (FP) PO SCH (22:15)
[2018-07-13] MEDS: ACETAMINOPHEN 325 MG TABLET (FP) PO PRN (00:35)
[2018-07-13] MEDS: methylPREDNISolone NA SUCC 40 MG/1 ML VIAL IVPUSH SCH ×4 (02:51→21:42)
[2018-07-13] MEDS ORDERED: PT OWN MED DRAWER 7, Y5N ONE ×3 (06:04→17:44)
[2018-07-13] MEDS: hydrALAZINE HCL 50 MG TABLET (FP) PO SCH ×3 (06:05→21:42)
[2018-07-13] MEDS: MEROPENEM 500 MG in DEXTROSE 5%-WATER 100 ML IVPB SCH ×2 (06:05→18:03)
[2018-07-13] MEDS: LEVOTHYROXINE NA 75 MCG TABLET (FP) PO SCH (06:05)
[2018-07-13 07:02] LABS: BASO % 0.2 % (0-2.0); HEMATOCRIT 27.2 % (35.4-49); HEMOGLOBIN 8.7 GM/dL (11.7-16.9); LYMPH % 1.8 % (8-40); MCH 25.4 pg (25.7-33.7); MEAN CELL VOLUME 79.4 fl (80-96); MEAN PLT VOLUME 7.1 fl (7.5-11.1); MONO % 2.7 % (3.8-10.2); NEUT % 95.3 % (42.8-82.8); PLATELET COUNT 273 K/MM3 (134-434); RBC 3.42 M/mm3 (4.00-5.60); RDW 19.5 % (11.9-15.9); WHITE BLOOD COUNT 11.5 K/mm3 (4.0-10.0)
[2018-07-13 07:36] LABS: CHLORIDE 100 mmol/L (98-107); POTASSIUM 3.8 mmol/L (3.5-5.1); SODIUM 146 mmol/L (136-145)
[2018-07-13 07:47] LABS: ALBUMIN 2.4 g/dl (3.4-5.0); ALK PHOS 77 U/L (45-117); ANION GAP 11 MMOL/L (8-16); BILIRUBIN,TOTAL 0.4 mg/dL (0.2-1.0); BLOOD UREA NITROGEN 90 mg/dL (7-18); CALCIUM 7.8 mg/dL (8.5-10.1); CO2 35 mmol/L (21-32); CREATININE 1.9 mg/dL (0.55-1.3); GLUCOSE,RANDOM 157 mg/dL (74-106); PHOSPHOROUS 4.6 mg/dL (2.5-4.9); SGOT/AST 17 U/L (15-37); SGPT/ALT 33 U/L (13-61); TOT PROT 6.2 g/dl (6.4-8.2)
[2018-07-13 08:11] LABS: SERUM IRON SATURATION 30 % (15-55); TOTAL IRON BINDING CAPACITY 202 ug/dL (250-450); UIBC 141 ug/dL (111-343)
[2018-07-13] MEDS: APIXABAN 2.5 MG TABLET PO SCH ×2 (09:33→21:42)
[2018-07-13] MEDS: PANTOPRAZOLE 40 MG TABLET (FP) PO SCH (09:33)
[2018-07-13] MEDS: MULTIVITAMINS (DAILY MVI) TABLET (FP) PO SCH (09:33)
[2018-07-13] MEDS: BUDESONIDE/FORMETEROL FUMARATE 80/4.5 mcg INHALER IH SCH ×2 (09:34→21:43)
[2018-07-13 10:45] LABS: ANISOCYTOSIS 1+; MACROCYTOSIS 0; PLATELET ESTIMATE NORMAL
--- NOTE | 2018-07-13 11:10 | PN ---
Progress Note, Physician History of Present Illness: pulmonary alert,on bipap,less dyspneic - Current Medication List Current Medications: Active Medications Acetaminophen (Tylenol -) 650 mg PO Q6H PRN PRN Reason: PAIN LEVEL 1-5 Last Admin: 07/13/18 00:35 Dose: 650 mg Albuterol Sulfate (Ventolin 0.083% Nebulizer Soln -) 1 amp NEB Q6H PRN PRN Reason: SHORT OF BREATH/WHEEZING Last Admin: 07/12/18 21:13 Dose: 1 amp Apixaban (Eliquis -) 2.5 mg PO BID [facility] Last Admin: 07/13/18 09:33 Dose: 2.5 mg Atorvastatin Calcium (Lipitor -) 10 mg PO HS [facility] Last Admin: 07/12/18 22:15 Dose: 10 mg Budesonide/Formoterol Fumarate (Symbicort 80/4.5mcg -) 2 puff IH BID [facility] Last Admin: 07/13/18 09:34 Dose: 2 puff Chlorhexidine Gluconate (Hibiclens For Decolonization -) 1 applic TP HS [facility] Last Admin: 07/12/18 22:11 Dose: Not Given Diltiazem HCl (Cardizem Cd -) 120 mg PO DAILY [facility] Last Admin: 07/13/18 09:33 Dose: 120 mg Hydralazine HCl (Apresoline -) 50 mg PO TID [facility] Last Admin: 07/13/18 06:05 Dose: 50 mg Meropenem 500 mg/ Dextrose 100 mls @ 200 mls/hr IVPB BID@0600,1800 [facility] Last Admin: 07/13/18 06:05 Dose: 200 mls/hr Levothyroxine Sodium (Synthroid -) 75 mcg PO DAILY@0700 [facility] Last Admin: 07/13/18 06:05 Dose: 75 mcg Methylprednisolone Sodium Succinate (Solu-Medrol -) 40 mg IVPUSH Q6H-IV [facility] Last Admin: 07/13/18 09:33 Dose: 40 mg Multivitamins/Minerals/Vitamin C (Tab-A-Vit -) 1 tab PO DAILY [facility] Last Admin: 07/13/18 09:33 Dose: 1 tab Pantoprazole Sodium (Protonix -) 40 mg PO DAILY [facility] Last Admin: 07/13/18 09:33 Dose: 40 mg - Objective Vital Signs: Vital Signs Temperature 97.4 F L 07/13/18 08:43 Pulse Rate 81 07/13/18 08:43 Respiratory Rate 26 H 07/13/18 08:43 Blood Pressure 143/94 07/13/18 08:43 O2 Sat by Pulse Oximetry (%) 98 07/13/18 10:03 Constitutional: Yes: Well Nourished, Calm Eyes: Yes: WNL HENT: Yes: WNL Neck: Yes: WNL Cardiovascular: Yes: Regular Rate and Rhythm, S1, S2 Respiratory: Yes: Rales (bilateral rales) Gastrointestinal: Yes: Normal Bowel Sounds, Soft Extremities: Yes: WNL Edema: No Labs: CBC, BMP 07/13/18 05:45 07/13/18 05:45 INR, PTT INR 2.08 (0.83-1.09) H 06/24/18 11:30 Assessment/Plan ASSESSMENT AND PLAN: Acute on Chronic Hypoxic Respiratory Failure Pneumonia CHF Acute Kidney Injury Acute COPD Exacerbation Acute on Chronic Diastolic Heart Failure Pulmonary HTN Atrial Flutter with RVR HTN Hyperlipidemia Hypothyroidism - inhaled bronchodilators standing and PRN - abx as per id - iv lasix - NIPPV - taper FiO2 to keep SpO2>90% - rate control - anticoagulation - monitor urine output, creatinine - steroids DR MENDOZA
--- NOTE | 2018-07-13 11:17 | PN ---
Progress Note, HEALTH TECHNICIAN - Note Progress Note: Selected Entries 07/12/18 07/12/18 07/12/18 01:00 05:00 09:00 Breakfast Lunch Supper Temperature 97.5 F L 97.0 F L 97.9 F 07/12/18 07/12/18 07/12/18 14:00 17:00 20:00 Breakfast 75% Lunch 75% Supper 25% Temperature 98 F 98.2 F 07/13/18 07/13/18 07/13/18 01:55 05:00 08:43 Breakfast Lunch Supper Temperature 97.6 F 97.3 F L 97.4 F L Laboratory Tests 07/11/18 07/12/18 07/13/18 05:30 05:30 05:45 WBC 10.9 H 16.9 H 11.5 H Pt becomes quite dyspneic when off bipap, on NC, but enjoys eating and reportedly tolerates PO. Increased risk of aspiration with rapid RR. Pt would handle softer foods, requiring less mastication more easily, if he desires. Continue Ensure.
--- NOTE | 2018-07-13 12:13 | PN ---
Progress Note, Physician History of Present Illness: Patient is a 82 year old male was sent from [facility] for worsening SOB. Patient reports that since many years he has had SOB due to COPD, has been on Oxygen intermittently for 6 yrs but since October,, has been using continuously. Since few days before admission, he had SOB, worsening, associated with wheezing, cough. It was productive, yellowish sputum. Denies chest pain, palpitation, abdominal pain, nausea or vomiting. Bowel/Bladder habit normal. Bowel movement was yesterday. Sleep/Appetite normal. 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 Smoking: Quit in 1955, smoked for 15 yrs, < 1pack/day Alcohol: Occasional quit years ago Drugs: Denies - Current Medication List Current Medications: Active Medications Acetaminophen (Tylenol -) 650 mg PO Q6H PRN PRN Reason: PAIN LEVEL 1-5 Last Admin: 07/13/18 00:35 Dose: 650 mg Albuterol Sulfate (Ventolin 0.083% Nebulizer Soln -) 1 amp NEB Q6H PRN PRN Reason: SHORT OF BREATH/WHEEZING Last Admin: 07/12/18 21:13 Dose: 1 amp Apixaban (Eliquis -) 2.5 mg PO BID [facility] Last Admin: 07/13/18 09:33 Dose: 2.5 mg Atorvastatin Calcium (Lipitor -) 10 mg PO [facility] Last Admin: 07/12/18 22:15 Dose: 10 mg Budesonide/Formoterol Fumarate (Symbicort 80/4.5mcg -) 2 puff IH BID [facility] Last Admin: 07/13/18 09:34 Dose: 2 puff Chlorhexidine Gluconate (Hibiclens For Decolonization -) 1 applic TP [facility] Last Admin: 07/12/18 22:11 Dose: Not Given Diltiazem HCl (Cardizem Cd -) 120 mg PO DAILY [facility] Last Admin: 07/13/18 09:33 Dose: 120 mg Furosemide (Lasix Injection -) 40 mg IVPUSH DAILY [facility] Hydralazine HCl (Apresoline -) 50 mg PO TID [facility] Last Admin: 07/13/18 06:05 Dose: 50 mg Meropenem 500 mg/ Dextrose 100 mls @ 200 mls/hr IVPB BID@0600,1800 [facility] Last Admin: 07/13/18 06:05 Dose: 200 mls/hr Levothyroxine Sodium (Synthroid -) 75 mcg PO DAILY@0700 [facility] Last Admin: 07/13/18 06:05 Dose: 75 mcg Methylprednisolone Sodium Succinate (Solu-Medrol -) 40 mg IVPUSH Q6H-IV [facility] Last Admin: 07/13/18 09:33 Dose: 40 mg Multivitamins/Minerals/Vitamin C (Tab-A-Vit -) 1 tab PO DAILY [facility] Last Admin: 07/13/18 09:33 Dose: 1 tab Pantoprazole Sodium (Protonix -) 40 mg PO DAILY [facility] Last Admin: 07/13/18 09:33 Dose: 40 mg - Objective Vital Signs: Vital Signs Temperature 97.4 F L 07/13/18 08:43 Pulse Rate 81 07/13/18 08:43 Respiratory Rate 26 H 07/13/18 08:43 Blood Pressure 143/94 07/13/18 08:43 O2 Sat by Pulse Oximetry (%) 98 07/13/18 10:03 Eyes: Yes: WNL, Conjunctiva Clear, EOM Intact HENT: Yes: WNL, Atraumatic, Normocephalic Neck: Yes: WNL, Supple, Trachea Midline Cardiovascular: Yes: Pulse Irregular, S1, S2 Respiratory: Yes: WNL, Regular, CTA Bilaterally Gastrointestinal: Yes: WNL, Normal Bowel Sounds Genitourinary: Yes: WNL Musculoskeletal: Yes: WNL Extremities: Yes: WNL Edema: No Integumentary: Yes: WNL Neurological: Yes: WNL, Alert, Oriented ...Motor Strength: WNL Psychiatric: Yes: WNL Labs: CBC, BMP 07/13/18 05:45 07/13/18 05:45 INR, PTT INR 2.08 (0.83-1.09) H 06/24/18 11:30 Assessment/Plan - Problems (1) Atrial flutter Assessment/Plan: Diltiazem CD 120 mg daily for HR control. Continue apixaban for anticoagulation. Code(s): I48.92 - UNSPECIFIED ATRIAL FLUTTER (2) CKD (chronic kidney disease) Code(s): N18.9 - CHRONIC KIDNEY DISEASE, UNSPECIFIED Qualifiers: Chronic kidney disease stage: unspecified stage Qualified Code(s): N18.9 - Chronic kidney disease, unspecified (3) COPD exacerbation Assessment/Plan: hx exposure to 2nd hand smoke. Gives hx of "asthma". On bronchodilators, steroids, O2, Bipap per pulmonary. Rx for PNA Code(s): J44.1 - CHRONIC OBSTRUCTIVE PULMONARY DISEASE W (ACUTE) EXACERBATION (4) Chronic diastolic CHF (congestive heart failure) Assessment/Plan: Rising BUN/Cr. Avoid diuretics. -JVD Repeat CXR. Code(s): I50.32 - CHRONIC DIASTOLIC (CONGESTIVE) HEART FAILURE (5) GERD (gastroesophageal reflux disease) Code(s): K21.9 - GASTRO-ESOPHAGEAL REFLUX DISEASE WITHOUT ESOPHAGITIS Qualifiers: Esophagitis presence: esophagitis presence not specified Qualified Code(s) : K21.9 - Gastro-esophageal reflux disease without esophagitis (6) HTN (hypertension) Assessment/Plan: On nifedipine (now changed to diltiazem), hydralazine and furosemide. Code(s): I10 - ESSENTIAL (PRIMARY) HYPERTENSION Qualifiers: Hypertension type: essential hypertension Qualified Code(s): I10 - Essential (primary) hypertension (7) Hypothyroidism Code(s): E03.9 - HYPOTHYROIDISM, UNSPECIFIED Qualifiers: Hypothyroidism type: unspecified Qualified Code(s): E03.9 - Hypothyroidism , unspecified (8) Renal dysfunction Assessment/Plan: Rising BUN/Cr. Avoid dehydration. Code(s): N28.9 - DISORDER OF KIDNEY AND URETER, UNSPECIFIED
[2018-07-13] MEDS: FUROSEMIDE 40 MG/4 ML INJECTABLE VIAL IVPUSH SCH (12:28)
--- NOTE | 2018-07-13 12:44 | PN ---
Progress Note (short form) - Note Progress Note: pt seen/ examined . chart reviewed feels better says breathing better denies cp. uses bipap at night time Vital Signs Temp 97.4 F L 07/13/18 08:43 Pulse 81 07/13/18 08:43 Resp 26 H 07/13/18 08:43 BP 143/94 07/13/18 08:43 Pulse Ox 98 07/13/18 10:03 Intake & Output 07/12/18 07/13/18 07/13/18 23:59 11:59 23:59 Intake Total 1090 100 Output Total 850 Balance 240 100 Intake: IVPB 250 100 Oral 840 Output: Urine 850 Void 850 Other: Voiding Method Urinal Urinal Urinal Bowel Movement No Active Medications Acetaminophen (Tylenol -) 650 mg PO Q6H PRN PRN Reason: PAIN LEVEL 1-5 Last Admin: 07/13/18 00:35 Dose: 650 mg Albuterol Sulfate (Ventolin 0.083% Nebulizer Soln -) 1 amp NEB Q6H PRN PRN Reason: SHORT OF BREATH/WHEEZING Last Admin: 07/12/18 21:13 Dose: 1 amp Apixaban (Eliquis -) 2.5 mg PO BID [facility] Last Admin: 07/13/18 09:33 Dose: 2.5 mg Atorvastatin Calcium (Lipitor -) 10 mg PO [facility] Last Admin: 07/12/18 22:15 Dose: 10 mg Budesonide/Formoterol Fumarate (Symbicort 80/4.5mcg -) 2 puff IH BID [facility] Last Admin: 07/13/18 09:34 Dose: 2 puff Chlorhexidine Gluconate (Hibiclens For Decolonization -) 1 applic TP [facility] Last Admin: 07/12/18 22:11 Dose: Not Given Diltiazem HCl (Cardizem Cd -) 120 mg PO DAILY [facility] Last Admin: 07/13/18 09:33 Dose: 120 mg Furosemide (Lasix Injection -) 40 mg IVPUSH DAILY [facility] Last Admin: 07/13/18 12:28 Dose: 40 mg Hydralazine HCl (Apresoline -) 50 mg PO TID [facility] Last Admin: 07/13/18 06:05 Dose: 50 mg Meropenem 500 mg/ Dextrose 100 mls @ 200 mls/hr IVPB BID@0600,1800 [facility] Last Admin: 07/13/18 06:05 Dose: 200 mls/hr Levothyroxine Sodium (Synthroid -) 75 mcg PO DAILY@0700 [facility] Last Admin: 07/13/18 06:05 Dose: 75 mcg Methylprednisolone Sodium Succinate (Solu-Medrol -) 40 mg IVPUSH Q6H-IV [facility] Last Admin: 07/13/18 09:33 Dose: 40 mg Multivitamins/Minerals/Vitamin C (Tab-A-Vit -) 1 tab PO DAILY [facility] Last Admin: 07/13/18 09:33 Dose: 1 tab Pantoprazole Sodium (Protonix -) 40 mg PO DAILY [facility] Last Admin: 07/13/18 09:33 Dose: 40 mg CBC, BMP 07/13/18 05:45 07/13/18 05:45 Physical Examination Constitutional: Yes: alert and awake Eyes: Yes: Conjunctiva Clear Neck: Yes: Supple, Other (no jvd) Cardiovascular: Yes: Pulse Irregular Respiratory: Yes:bilateral rhonchi Gastrointestinal: Yes: Soft/ non tender . bowel sound present, no edema Neurological: Yes: Alert Psychiatric: Yes: Alert Assessment/Plan BIPAP as needed Continue present care Abx iv steroids- taper slowly clinical condition- guarded monitor nebulizer treatment monitor labs oob - chair daily will follow Problem List - Problems (1) Respiratory failure with hypoxia Code(s): J96.91 - RESPIRATORY FAILURE, UNSPECIFIED WITH HYPOXIA (2) Chronic diastolic CHF (congestive heart failure) Code(s): I50.32 - CHRONIC DIASTOLIC (CONGESTIVE) HEART FAILURE (3) HTN (hypertension) Code(s): I10 - ESSENTIAL (PRIMARY) HYPERTENSION Qualifiers: Hypertension type: essential hypertension Qualified Code(s): I10 - Essential (primary) hypertension (4) Hypothyroidism Code(s): E03.9 - HYPOTHYROIDISM, UNSPECIFIED Qualifiers: Hypothyroidism type: unspecified Qualified Code(s): E03.9 - Hypothyroidism , unspecified (5) Paroxysmal A-fib Code(s): I48.0 - PAROXYSMAL ATRIAL FIBRILLATION
--- NOTE | 2018-07-13 13:02 | PN ---
Progress Note (short form) - Note Progress Note: Renal follow up for ANNALISA Pt seen and examined at the bedside no acute complaints no sob, cp, abd pain, N/V/D on BIPAP breathing is improved as per pt Vital Signs Temperature 97.4 F L 07/13/18 08:43 Pulse Rate 81 07/13/18 08:43 Respiratory Rate 26 H 07/13/18 08:43 Blood Pressure 143/94 07/13/18 08:43 O2 Sat by Pulse Oximetry (%) 98 07/13/18 10:03 Intake & Output 07/10/18 07/11/18 07/12/18 07/13/18 23:59 23:59 23:59 23:59 Intake Total 4182 854 7851 100 Output Total 625 1200 1150 Balance 463 -610 340 100 NAD on BIPAP RRR Dec BS b/l Lung ribera no LE edema CBC, BMP 07/13/18 05:45 07/13/18 05:45 Current Medications Acetaminophen (Tylenol -) 650 mg PO Q6H PRN PRN Reason: PAIN LEVEL 1-5 Last Admin: 07/13/18 00:35 Dose: 650 mg Albuterol Sulfate (Ventolin 0.083% Nebulizer Soln -) 1 amp NEB Q6H PRN PRN Reason: SHORT OF BREATH/WHEEZING Last Admin: 07/12/18 21:13 Dose: 1 amp Apixaban (Eliquis -) 2.5 mg PO BID [facility] Last Admin: 07/13/18 09:33 Dose: 2.5 mg Atorvastatin Calcium (Lipitor -) 10 mg PO HS [facility] Last Admin: 07/12/18 22:15 Dose: 10 mg Budesonide/Formoterol Fumarate (Symbicort 80/4.5mcg -) 2 puff IH BID [facility] Last Admin: 07/13/18 09:34 Dose: 2 puff Chlorhexidine Gluconate (Hibiclens For Decolonization -) 1 applic TP HS [facility] Last Admin: 07/12/18 22:11 Dose: Not Given Diltiazem HCl (Cardizem Cd -) 120 mg PO DAILY [facility] Last Admin: 07/13/18 09:33 Dose: 120 mg Furosemide (Lasix Injection -) 40 mg IVPUSH DAILY [facility] Last Admin: 07/13/18 12:28 Dose: 40 mg Hydralazine HCl (Apresoline -) 50 mg PO TID [facility] Last Admin: 07/13/18 06:05 Dose: 50 mg Meropenem 500 mg/ Dextrose 100 mls @ 200 mls/hr IVPB BID@0600,1800 [facility] Last Admin: 07/13/18 06:05 Dose: 200 mls/hr Levothyroxine Sodium (Synthroid -) 75 mcg PO DAILY@0700 [facility] Last Admin: 07/13/18 06:05 Dose: 75 mcg Methylprednisolone Sodium Succinate (Solu-Medrol -) 40 mg IVPUSH Q6H-IV [facility] Last Admin: 07/13/18 09:33 Dose: 40 mg Multivitamins/Minerals/Vitamin C (Tab-A-Vit -) 1 tab PO DAILY [facility] Last Admin: 07/13/18 09:33 Dose: 1 tab Pantoprazole Sodium (Protonix -) 40 mg PO DAILY [facility] Last Admin: 07/13/18 09:33 Dose: 40 mg 82 year old AA gentleman with history of CKD, Hyperlipidemia, CHF, COPD, Afib, Hypothyroidism who presented with SOB and Fever and found to have PNA + CHF and developed ANNALISA. #ANNALISA on CKD likely due to intravascular volume depletion in setting of IV diuretics #CKD #PNA #CHF #COPD/Reactive airway disease #Anemia #Gallstones/Gallbladder wall thickening Renal function with slight improvement with discontinuation of Lasix however respiratory status not improved and pt still requires BIPAP discussed case with pulmonary who belives that majority of SOB is due to HF will resume Lasix IV and trend renal function and electrolytes pt unlikely to tolerate CT scan given dyspnea at this time Repeat CXR in the AM US findings of gallstone and gallbladder wall thickening discussed with radiology and PMD. Pt at this time has no abd pain and LFT's are WNL. Will defer any further imaging studies at this time. Pravin Veras DO
--- NOTE | 2018-07-13 14:20 | PN ---
Progress Note (short form) - Note Progress Note: still tachypneic still on tintermittent bipap Vital Signs Period Temp Pulse Resp BP Sys/[place] Pulse Ox Last 24 Hr 97.3 F-98.2 F 81-85 18- 121-143/70-94 93-98 cor-rrr lungs decreased bs at bases abd soft,nt ext no edema CBC, BMP 07/13/18 05:45 07/13/18 05:45 Microbiology 07/10/18 19:30 Urine For Antigen Detection Legionella Antigen - Final 07/10/18 19:30 Urine For Antigen Detection Streptococcus pneumoniae Antigen (M - Final 06/24/18 21:15 Blood - Peripheral Venous Blood Culture - Final NO GROWTH AFTER 5 DAYS INCUBATION 06/24/18 21:10 Blood - Peripheral Venous Blood Culture - Final NO GROWTH AFTER 5 DAYS INCUBATION 06/24/18 11:30 Blood - Peripheral Venous Blood Culture - Final NO GROWTH AFTER 5 DAYS INCUBATION 06/24/18 11:30 Blood - Peripheral Venous Blood Culture - Final NO GROWTH AFTER 5 DAYS INCUBATION 06/26/18 14:00 Nares - Mrsa Screen - Left MRSA Screen - Final NO MRSA ISOLATED 06/26/18 14:00 Nares - Mrsa Screen - Right MRSA Screen - Final NO MRSA ISOLATED 06/25/18 07:00 Sputum - Expectorated Gram Stain - Final 06/25/18 07:00 Sputum - Expectorated Sputum Culture - Final NORMAL RESPIRATORY JOANNA 06/24/18 19:50 Urine - Urine Clean Catch Legionella Antigen - Final 06/24/18 19:50 Urine - Urine Clean Catch Streptococcus pneumoniae Antigen ( M - Final 06/24/18 13:51 Urine - Urine Clean Catch Urine Culture - Final NO GROWTH OBTAINED Current Medications Acetaminophen (Tylenol -) 650 mg PO Q6H PRN PRN Reason: PAIN LEVEL 1-5 Last Admin: 07/13/18 00:35 Dose: 650 mg Albuterol Sulfate (Ventolin 0.083% Nebulizer Soln -) 1 amp NEB Q6H PRN PRN Reason: SHORT OF BREATH/WHEEZING Last Admin: 07/12/18 21:13 Dose: 1 amp Apixaban (Eliquis -) 2.5 mg PO BID [facility] Last Admin: 07/13/18 09:33 Dose: 2.5 mg Atorvastatin Calcium (Lipitor -) 10 mg PO HS [facility] Last Admin: 07/12/18 22:15 Dose: 10 mg Budesonide/Formoterol Fumarate (Symbicort 80/4.5mcg -) 2 puff IH BID [facility] Last Admin: 07/13/18 09:34 Dose: 2 puff Chlorhexidine Gluconate (Hibiclens For Decolonization -) 1 applic TP [facility] Last Admin: 07/12/18 22:11 Dose: Not Given Diltiazem HCl (Cardizem Cd -) 120 mg PO DAILY [facility] Last Admin: 07/13/18 09:33 Dose: 120 mg Furosemide (Lasix Injection -) 40 mg IVPUSH DAILY [facility] Last Admin: 07/13/18 12:28 Dose: 40 mg Hydralazine HCl (Apresoline -) 50 mg PO TID [facility] Last Admin: 07/13/18 13:47 Dose: 50 mg Meropenem 500 mg/ Dextrose 100 mls @ 200 mls/hr IVPB BID@0600,1800 [facility] Last Admin: 07/13/18 06:05 Dose: 200 mls/hr Levothyroxine Sodium (Synthroid -) 75 mcg PO DAILY@0700 [facility] Last Admin: 07/13/18 06:05 Dose: 75 mcg Methylprednisolone Sodium Succinate (Solu-Medrol -) 40 mg IVPUSH Q6H-IV [facility] Last Admin: 07/13/18 09:33 Dose: 40 mg Multivitamins/Minerals/Vitamin C (Tab-A-Vit -) 1 tab PO DAILY [facility] Last Admin: 07/13/18 09:33 Dose: 1 tab Pantoprazole Sodium (Protonix -) 40 mg PO DAILY [facility] Last Admin: 07/13/18 09:33 Dose: 40 mg 2 cxray RLL infiltrate a/p resp failure with hypoxia-improved, leukocytosis improved suspect combination of infection and chf continue meropenem/vancomycin day #3 check vanco level in am consider chest ct when he is able to lay flat GERD copd exacerbation Penicillin allergy ckd afib prolonged Qtc Problem List - Problems (1) Respiratory failure with hypoxia Code(s): J96.91 - RESPIRATORY FAILURE, UNSPECIFIED WITH HYPOXIA (2) Pneumonia Code(s): J18.9 - PNEUMONIA, UNSPECIFIED ORGANISM (3) COPD exacerbation Code(s): J44.1 - CHRONIC OBSTRUCTIVE PULMONARY DISEASE W (ACUTE) EXACERBATION (4) CKD (chronic kidney disease) Code(s): N18.9 - CHRONIC KIDNEY DISEASE, UNSPECIFIED Qualifiers: Chronic kidney disease stage: unspecified stage Qualified Code(s): N18.9 - Chronic kidney disease, unspecified (5) Penicillin allergy Code(s): Z88.0 - ALLERGY STATUS TO PENICILLIN
[2018-07-13] MEDS: ATORVASTATIN CA 10 MG TABLET (FP) PO SCH (21:42)
[2018-07-13] MEDS: CHLORHEXIDINE GLUCONATE 4% CLEANSER FOR DECOLONIZATION TP SCH (21:42)
[2018-07-14] MEDS: methylPREDNISolone NA SUCC 40 MG/1 ML VIAL IVPUSH SCH ×3 (03:44→14:15)
[2018-07-14] MEDS: MEROPENEM 500 MG in DEXTROSE 5%-WATER 100 ML IVPB SCH ×2 (06:26→18:38)
[2018-07-14] MEDS: hydrALAZINE HCL 50 MG TABLET (FP) PO SCH ×3 (06:26→22:09)
[2018-07-14] MEDS: LEVOTHYROXINE NA 75 MCG TABLET (FP) PO SCH (06:27)
[2018-07-14] MEDS: ACETAMINOPHEN 325 MG TABLET (FP) PO PRN ×2 (08:45→18:53)
--- NOTE | 2018-07-14 09:01 | PN ---
Progress Note, Physician History of Present Illness: Patient is a 82 year old male was sent from [facility] for worsening SOB. Patient reports that since many years he has had SOB due to COPD, has been on Oxygen intermittently for 6 yrs but since October,, has been using continuously. Since few days before admission, he had SOB, worsening, associated with wheezing, cough. It was productive, yellowish sputum. Denies chest pain, palpitation, abdominal pain, nausea or vomiting. Bowel/Bladder habit normal. Bowel movement was yesterday. Sleep/Appetite normal. 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 Smoking: Quit in 1955, smoked for 15 yrs, < 1pack/day Alcohol: Occasional quit years ago Drugs: Denies - Current Medication List Current Medications: Active Medications Acetaminophen (Tylenol -) 650 mg PO Q6H PRN PRN Reason: PAIN LEVEL 1-5 Last Admin: 07/14/18 08:45 Dose: 650 mg Apixaban (Eliquis -) 2.5 mg PO BID [facility] Last Admin: 07/13/18 21:42 Dose: 2.5 mg Atorvastatin Calcium (Lipitor -) 10 mg PO HS [facility] Last Admin: 07/13/18 21:42 Dose: 10 mg Budesonide/Formoterol Fumarate (Symbicort 80/4.5mcg -) 2 puff IH BID [facility] Last Admin: 07/13/18 21:43 Dose: 2 puff Chlorhexidine Gluconate (Hibiclens For Decolonization -) 1 applic TP [facility] Last Admin: 07/13/18 21:42 Dose: Not Given Diltiazem HCl (Cardizem Cd -) 120 mg PO DAILY [facility] Last Admin: 07/13/18 09:33 Dose: 120 mg Furosemide (Lasix Injection -) 40 mg IVPUSH DAILY [facility] Last Admin: 07/13/18 12:28 Dose: 40 mg Hydralazine HCl (Apresoline -) 50 mg PO TID [facility] Last Admin: 07/14/18 06:26 Dose: 50 mg Meropenem 500 mg/ Dextrose 100 mls @ 200 mls/hr IVPB BID@0600,1800 [facility] Last Admin: 07/14/18 06:26 Dose: 200 mls/hr Levothyroxine Sodium (Synthroid -) 75 mcg PO DAILY@0700 [facility] Last Admin: 07/14/18 06:27 Dose: 75 mcg Methylprednisolone Sodium Succinate (Solu-Medrol -) 40 mg IVPUSH Q6H-IV [facility] Last Admin: 07/14/18 08:46 Dose: 40 mg Multivitamins/Minerals/Vitamin C (Tab-A-Vit -) 1 tab PO DAILY [facility] Last Admin: 07/13/18 09:33 Dose: 1 tab Pantoprazole Sodium (Protonix -) 40 mg PO DAILY [facility] Last Admin: 07/13/18 09:33 Dose: 40 mg - Objective Vital Signs: Vital Signs Temperature 97.1 F L 07/14/18 08:56 Pulse Rate 86 07/14/18 08:56 Respiratory Rate 22 07/14/18 08:56 Blood Pressure 131/79 07/14/18 08:56 O2 Sat by Pulse Oximetry (%) 92 L 07/13/18 21:00 Eyes: Yes: WNL, Conjunctiva Clear, EOM Intact HENT: Yes: WNL, Atraumatic, Normocephalic Neck: Yes: WNL, Supple, Trachea Midline Cardiovascular: Yes: Pulse Irregular Respiratory: Yes: WNL, Regular, CTA Bilaterally Gastrointestinal: Yes: WNL, Normal Bowel Sounds Genitourinary: Yes: WNL Musculoskeletal: Yes: WNL Extremities: Yes: WNL Edema: No Integumentary: Yes: WNL Neurological: Yes: WNL, Alert, Oriented ...Motor Strength: WNL Psychiatric: Yes: WNL Labs: CBC, BMP 07/13/18 05:45 07/13/18 05:45 INR, PTT INR 2.08 (0.83-1.09) H 06/24/18 11:30 Assessment/Plan - Problems (1) Atrial flutter Assessment/Plan: Diltiazem CD 120 mg daily for HR control. Continue apixaban for anticoagulation. d/c telemetry Code(s): I48.92 - UNSPECIFIED ATRIAL FLUTTER (2) CKD (chronic kidney disease) Code(s): N18.9 - CHRONIC KIDNEY DISEASE, UNSPECIFIED Qualifiers: Chronic kidney disease stage: unspecified stage Qualified Code(s): N18.9 - Chronic kidney disease, unspecified (3) COPD exacerbation Assessment/Plan: hx exposure to 2nd hand smoke. Gives hx of "asthma". On bronchodilators, steroids, O2, Bipap per pulmonary. Rx for PNA Code(s): J44.1 - CHRONIC OBSTRUCTIVE PULMONARY DISEASE W (ACUTE) EXACERBATION (4) Chronic diastolic CHF (congestive heart failure) Assessment/Plan: Rising BUN/Cr. Avoid diuretics. -JVD Repeat CXR. Code(s): I50.32 - CHRONIC DIASTOLIC (CONGESTIVE) HEART FAILURE (5) GERD (gastroesophageal reflux disease) Code(s): K21.9 - GASTRO-ESOPHAGEAL REFLUX DISEASE WITHOUT ESOPHAGITIS Qualifiers: Esophagitis presence: esophagitis presence not specified Qualified Code(s) : K21.9 - Gastro-esophageal reflux disease without esophagitis (6) HTN (hypertension) Assessment/Plan: On nifedipine (now changed to diltiazem), hydralazine and furosemide. Code(s): I10 - ESSENTIAL (PRIMARY) HYPERTENSION Qualifiers: Hypertension type: essential hypertension Qualified Code(s): I10 - Essential (primary) hypertension (7) Hypothyroidism Code(s): E03.9 - HYPOTHYROIDISM, UNSPECIFIED Qualifiers: Hypothyroidism type: unspecified Qualified Code(s): E03.9 - Hypothyroidism , unspecified (8) Renal dysfunction Assessment/Plan: Rising BUN/Cr. Avoid dehydration. Code(s): N28.9 - DISORDER OF KIDNEY AND URETER, UNSPECIFIED
[2018-07-14] MEDS: MULTIVITAMINS (DAILY MVI) TABLET (FP) PO SCH (09:04)
[2018-07-14] MEDS: BUDESONIDE/FORMETEROL FUMARATE 80/4.5 mcg INHALER IH SCH ×2 (09:04→22:10)
[2018-07-14] MEDS: PANTOPRAZOLE 40 MG TABLET (FP) PO SCH (09:04)
[2018-07-14] MEDS: FUROSEMIDE 40 MG/4 ML INJECTABLE VIAL IVPUSH SCH (09:04)
[2018-07-14] MEDS: APIXABAN 2.5 MG TABLET PO SCH ×2 (09:04→22:09)
[2018-07-14 10:24] LABS: ANION GAP 9 MMOL/L (8-16); BLOOD UREA NITROGEN 87 mg/dL (7-18); CALCIUM 7.8 mg/dL (8.5-10.1); CHLORIDE 101 mmol/L (98-107); CO2 38 mmol/L (21-32); GLUCOSE,RANDOM 151 mg/dL (74-106); POTASSIUM 3.8 mmol/L (3.5-5.1); SODIUM 148 mmol/L (136-145)
[2018-07-14 10:25] LABS: CREATININE 1.6 mg/dL (0.55-1.3)
--- NOTE | 2018-07-14 10:42 | PN ---
Progress Note (short form) - Note Progress Note: Renal follow up for ANNALISA Pt seen and examined at the bedside no acute complaints no sob, cp, abd pain, N/V/D Vital Signs Temperature 97.1 F L 07/14/18 08:56 Pulse Rate 86 07/14/18 08:56 Respiratory Rate 22 07/14/18 08:57 Blood Pressure 131/79 07/14/18 08:56 O2 Sat by Pulse Oximetry (%) 91 L 07/14/18 08:57 Intake & Output 07/11/18 07/12/18 07/13/18 07/14/18 23:59 23:59 23:59 23:59 Intake Total 590 1490 604 350 Output Total 1200 1150 900 500 Balance -610 340 -296 -150 NAD on BIPAP RRR Dec BS b/l Lung ribera no LE edema CBC, BMP 07/13/18 05:45 07/14/18 05:50 Current Medications Acetaminophen (Tylenol -) 650 mg PO Q6H PRN PRN Reason: PAIN LEVEL 1-5 Last Admin: 07/14/18 08:45 Dose: 650 mg Apixaban (Eliquis -) 2.5 mg PO BID [facility] Last Admin: 07/14/18 09:04 Dose: 2.5 mg Atorvastatin Calcium (Lipitor -) 10 mg PO HS [facility] Last Admin: 07/13/18 21:42 Dose: 10 mg Budesonide/Formoterol Fumarate (Symbicort 80/4.5mcg -) 2 puff IH BID [facility] Last Admin: 07/14/18 09:04 Dose: 2 puff Chlorhexidine Gluconate (Hibiclens For Decolonization -) 1 applic TP HS [facility] Last Admin: 07/13/18 21:42 Dose: Not Given Diltiazem HCl (Cardizem Cd -) 120 mg PO DAILY [facility] Last Admin: 07/14/18 09:04 Dose: 120 mg Furosemide (Lasix Injection -) 40 mg IVPUSH DAILY [facility] Last Admin: 07/14/18 09:04 Dose: 40 mg Hydralazine HCl (Apresoline -) 50 mg PO TID [facility] Last Admin: 07/14/18 06:26 Dose: 50 mg Meropenem 500 mg/ Dextrose 100 mls @ 200 mls/hr IVPB BID@0600,1800 [facility] Last Admin: 07/14/18 06:26 Dose: 200 mls/hr Levothyroxine Sodium (Synthroid -) 75 mcg PO DAILY@0700 [facility] Last Admin: 07/14/18 06:27 Dose: 75 mcg Methylprednisolone Sodium Succinate (Solu-Medrol -) 40 mg IVPUSH Q6H-IV [facility] Last Admin: 07/14/18 08:46 Dose: 40 mg Multivitamins/Minerals/Vitamin C (Tab-A-Vit -) 1 tab PO DAILY [facility] Last Admin: 07/14/18 09:04 Dose: 1 tab Pantoprazole Sodium (Protonix -) 40 mg PO DAILY [facility] Last Admin: 07/14/18 09:04 Dose: 40 mg 82 year old AA gentleman with history of CKD, Hyperlipidemia, CHF, COPD, Afib, Hypothyroidism who presented with SOB and Fever and found to have PNA + CHF and developed ANNALISA. #ANNALISA on CKD likely due to intravascular volume depletion in setting of IV diuretics #CKD #PNA #CHF #COPD/Reactive airway disease #Anemia #Gallstones/Gallbladder wall thickening Renal function improved continue IV Lasix daily for now, can titrate to oral diuretics when SOB near baseline trend renal function and electrolytes F/u repeat cxr US findings of gallstone and gallbladder wall thickening discussed with radiology and PMD. Pt at this time has no abd pain and LFT's are WNL. Will defer any further imaging studies at this time. Pravin Veras DO
--- NOTE | 2018-07-14 13:40 | PN ---
Progress Note (short form) - Note Progress Note: feels same all f/u noted no distress dysnea persists Vital Signs Temp 97.1 F L 07/14/18 08:56 Pulse 86 07/14/18 08:56 Resp 22 07/14/18 08:57 BP 131/79 07/14/18 08:56 Pulse Ox 99 07/14/18 10:48 Intake & Output 07/13/18 07/14/18 07/14/18 23:59 11:59 23:59 Intake Total 504 350 Output Total 900 500 Balance -396 -150 Intake: IV 24 10 S L 24 10 IVPB 100 Oral 480 240 Output: Urine 900 500 Void 900 500 Other: Voiding Method Urinal Urinal Bowel Movement Yes Yes # Bowel Movements 1 Active Medications Acetaminophen (Tylenol -) 650 mg PO Q6H PRN PRN Reason: PAIN LEVEL 1-5 Last Admin: 07/14/18 08:45 Dose: 650 mg Apixaban (Eliquis -) 2.5 mg PO BID [facility] Last Admin: 07/14/18 09:04 Dose: 2.5 mg Atorvastatin Calcium (Lipitor -) 10 mg PO [facility] Last Admin: 07/13/18 21:42 Dose: 10 mg Budesonide/Formoterol Fumarate (Symbicort 80/4.5mcg -) 2 puff IH BID [facility] Last Admin: 07/14/18 09:04 Dose: 2 puff Chlorhexidine Gluconate (Hibiclens For Decolonization -) 1 applic TP [facility] Last Admin: 07/13/18 21:42 Dose: Not Given Diltiazem HCl (Cardizem Cd -) 120 mg PO DAILY [facility] Last Admin: 07/14/18 09:04 Dose: 120 mg Furosemide (Lasix Injection -) 40 mg IVPUSH DAILY [facility] Last Admin: 07/14/18 09:04 Dose: 40 mg Hydralazine HCl (Apresoline -) 50 mg PO TID [facility] Last Admin: 07/14/18 06:26 Dose: 50 mg Meropenem 500 mg/ Dextrose 100 mls @ 200 mls/hr IVPB BID@0600,1800 [facility] Last Admin: 07/14/18 06:26 Dose: 200 mls/hr Levothyroxine Sodium (Synthroid -) 75 mcg PO DAILY@0700 [facility] Last Admin: 07/14/18 06:27 Dose: 75 mcg Methylprednisolone Sodium Succinate (Solu-Medrol -) 40 mg IVPUSH Q6H-IV [facility] Last Admin: 07/14/18 08:46 Dose: 40 mg Multivitamins/Minerals/Vitamin C (Tab-A-Vit -) 1 tab PO DAILY [facility] Last Admin: 07/14/18 09:04 Dose: 1 tab Pantoprazole Sodium (Protonix -) 40 mg PO DAILY [facility] Last Admin: 07/14/18 09:04 Dose: 40 mg CBC, BMP 07/13/18 05:45 07/14/18 05:50 Physical Examination Constitutional: Yes: alert and awake Eyes: Yes: Conjunctiva Clear Neck: Yes: Supple, Other (no jvd) Cardiovascular: Yes: Pulse Irregular Respiratory: Yes:ronchi+, decreased breath sounds B/l Gastrointestinal: Yes: Soft/ non tender . bowel sound present, no edema Neurological: Yes: Alert Psychiatric: Yes: Alert Assessment/Plan BIPAP as needed Continue present care Abx iv steroids clinical condition- guarded monitor nebulizer treatment monitor lytes will follow Problem List - Problems (1) Respiratory failure with hypoxia Code(s): J96.91 - RESPIRATORY FAILURE, UNSPECIFIED WITH HYPOXIA (2) Chronic diastolic CHF (congestive heart failure) Code(s): I50.32 - CHRONIC DIASTOLIC (CONGESTIVE) HEART FAILURE (3) HTN (hypertension) Code(s): I10 - ESSENTIAL (PRIMARY) HYPERTENSION Qualifiers: Hypertension type: essential hypertension Qualified Code(s): I10 - Essential (primary) hypertension (4) Hypothyroidism Code(s): E03.9 - HYPOTHYROIDISM, UNSPECIFIED Qualifiers: Hypothyroidism type: unspecified Qualified Code(s): E03.9 - Hypothyroidism , unspecified (5) Paroxysmal A-fib Code(s): I48.0 - PAROXYSMAL ATRIAL FIBRILLATION
--- NOTE | 2018-07-14 13:55 | PN ---
Progress Note (short form) - Note Progress Note: Alternating between NIPPV and VM O2. Afebrile. No CP. Intake & Output 07/11/18 07/12/18 07/13/18 07/14/18 23:59 23:59 23:59 23:59 Intake Total 590 1490 604 350 Output Total 1200 1150 900 500 Balance -610 340 -296 -150 Last Vital Signs Temp Pulse Resp BP Pulse Ox 97.1 F L 86 22 131/79 99 07/14/18 08:56 07/14/18 08:56 07/14/18 08:57 07/14/18 08:56 07/14/18 10:48 Active Medications Acetaminophen (Tylenol -) 650 mg PO Q6H PRN PRN Reason: PAIN LEVEL 1-5 Last Admin: 07/14/18 08:45 Dose: 650 mg Apixaban (Eliquis -) 2.5 mg PO BID [facility] Last Admin: 07/14/18 09:04 Dose: 2.5 mg Atorvastatin Calcium (Lipitor -) 10 mg PO HS [facility] Last Admin: 07/13/18 21:42 Dose: 10 mg Budesonide/Formoterol Fumarate (Symbicort 80/4.5mcg -) 2 puff IH BID [facility] Last Admin: 07/14/18 09:04 Dose: 2 puff Chlorhexidine Gluconate (Hibiclens For Decolonization -) 1 applic TP HS [facility] Last Admin: 07/13/18 21:42 Dose: Not Given Diltiazem HCl (Cardizem Cd -) 120 mg PO DAILY [facility] Last Admin: 07/14/18 09:04 Dose: 120 mg Furosemide (Lasix Injection -) 40 mg IVPUSH DAILY [facility] Last Admin: 07/14/18 09:04 Dose: 40 mg Hydralazine HCl (Apresoline -) 50 mg PO TID [facility] Last Admin: 07/14/18 06:26 Dose: 50 mg Meropenem 500 mg/ Dextrose 100 mls @ 200 mls/hr IVPB BID@0600,1800 [facility] Last Admin: 07/14/18 06:26 Dose: 200 mls/hr Levothyroxine Sodium (Synthroid -) 75 mcg PO DAILY@0700 [facility] Last Admin: 07/14/18 06:27 Dose: 75 mcg Methylprednisolone Sodium Succinate (Solu-Medrol -) 40 mg IVPUSH Q6H-IV [facility] Last Admin: 07/14/18 08:46 Dose: 40 mg Multivitamins/Minerals/Vitamin C (Tab-A-Vit -) 1 tab PO DAILY [facility] Last Admin: 07/14/18 09:04 Dose: 1 tab Pantoprazole Sodium (Protonix -) 40 mg PO DAILY [facility] Last Admin: 07/14/18 09:04 Dose: 40 mg Constitutional: Yes: NAD on NIPPV Eyes: Yes: WNL HENT: Yes: WNL Neck: Yes: WNL Cardiovascular: Yes: Regular Rate and Rhythm, S1, S2 Respiratory: Yes: Basilar Rales/rhonchi Gastrointestinal: Yes: Normal Bowel Sounds, Soft Extremities: Yes: WNL Edema: No Labs: Laboratory Results - last 24 hr 07/14/18 07/14/18 05:50 05:50 Sodium 148 H Potassium 3.8 Chloride 101 Carbon Dioxide 38 H Anion Gap 9 BUN 87 H Creatinine 1.6 H Creat Clearance w eGFR 41.39 Random Glucose 151 H Calcium 7.8 L Random Vancomycin 9.16 Assessment/Plan ASSESSMENT AND PLAN: Acute on Chronic Hypoxic Respiratory Failure Pneumonia CHF Acute Kidney Injury Acute COPD Exacerbation Acute on Chronic Diastolic Heart Failure Pulmonary HTN Atrial Flutter with RVR HTN Hyperlipidemia Hypothyroidism - inhaled bronchodilators standing and PRN - ABX per ID - Lasix - NIPPV support - VM O2 as tolerated - AC - Monitor urine output, creatinine - Taper steroids Dr Dyer
[2018-07-14] MEDS ORDERED: CHLORHEXIDINE GLUCONATE 4% CLEANSER FOR DECOLONIZATION TP SCH (22:00)
[2018-07-14] MEDS: ATORVASTATIN CA 10 MG TABLET (FP) PO SCH (22:09)
[2018-07-15] MEDS: methylPREDNISolone NA SUCC 40 MG/1 ML VIAL IVPUSH SCH ×2 (02:09→13:44)
[2018-07-15] MEDS: hydrALAZINE HCL 50 MG TABLET (FP) PO SCH ×3 (06:14→21:21)
[2018-07-15] MEDS: MEROPENEM 500 MG in DEXTROSE 5%-WATER 100 ML IVPB SCH ×2 (06:14→17:04)
[2018-07-15] MEDS: LEVOTHYROXINE NA 75 MCG TABLET (FP) PO SCH (06:14)
[2018-07-15] MEDS: ACETAMINOPHEN 325 MG TABLET (FP) PO PRN ×2 (06:21→17:05)
[2018-07-15 07:48] LABS: BASO % 0.1 % (0-2.0); HEMATOCRIT 27.6 % (35.4-49); LYMPH % 1.4 % (8-40); MCHC 32.7 g/dl (32.0-35.9); MEAN CELL VOLUME 79.6 fl (80-96); MEAN PLT VOLUME 6.8 fl (7.5-11.1); MONO % 2.9 % (3.8-10.2); NEUT % 95.6 % (42.8-82.8); PLATELET COUNT 282 K/MM3 (134-434); RBC 3.47 M/mm3 (4.00-5.60); RDW 20.1 % (11.9-15.9); WHITE BLOOD COUNT 9.6 K/mm3 (4.0-10.0)
[2018-07-15 08:52] LABS: ANION GAP 10 MMOL/L (8-16); BLOOD UREA NITROGEN 86 mg/dL (7-18); CALCIUM 7.2 mg/dL (8.5-10.1); CHLORIDE 99 mmol/L (98-107); CO2 37 mmol/L (21-32); CREATININE 1.5 mg/dL (0.55-1.3); GLUCOSE,RANDOM 170 mg/dL (74-106); MAGNESIUM 2.6 mg/dL (1.8-2.4); POTASSIUM 3.5 mmol/L (3.5-5.1); SODIUM 146 mmol/L (136-145)
--- NOTE | 2018-07-15 09:04 | PN ---
Progress Note, Physician History of Present Illness: Patient is a 82 year old male was sent from [facility] for worsening SOB. Patient reports that since many years he has had SOB due to COPD, has been on Oxygen intermittently for 6 yrs but since October,, has been using continuously. Since few days before admission, he had SOB, worsening, associated with wheezing, cough. It was productive, yellowish sputum. Denies chest pain, palpitation, abdominal pain, nausea or vomiting. Bowel/Bladder habit normal. Bowel movement was yesterday. Sleep/Appetite normal. 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 Smoking: Quit in 1955, smoked for 15 yrs, < 1pack/day Alcohol: Occasional quit years ago Drugs: Denies - Current Medication List Current Medications: Active Medications Acetaminophen (Tylenol -) 650 mg PO Q6H PRN PRN Reason: PAIN LEVEL 1-5 Last Admin: 07/15/18 06:21 Dose: 650 mg Apixaban (Eliquis -) 2.5 mg PO BID [facility] Last Admin: 07/14/18 22:09 Dose: 2.5 mg Atorvastatin Calcium (Lipitor -) 10 mg PO HS [facility] Last Admin: 07/14/18 22:09 Dose: 10 mg Budesonide/Formoterol Fumarate (Symbicort 80/4.5mcg -) 2 puff IH BID [facility] Last Admin: 07/14/18 22:10 Dose: 2 puff Diltiazem HCl (Cardizem Cd -) 120 mg PO DAILY [facility] Last Admin: 07/14/18 09:04 Dose: 120 mg Furosemide (Lasix Injection -) 40 mg IVPUSH DAILY [facility] Last Admin: 07/14/18 09:04 Dose: 40 mg Hydralazine HCl (Apresoline -) 50 mg PO TID [facility] Last Admin: 07/15/18 06:14 Dose: 50 mg Meropenem 500 mg/ Dextrose 100 mls @ 200 mls/hr IVPB BID@0600,1800 [facility] Last Admin: 07/15/18 06:14 Dose: 200 mls/hr Levothyroxine Sodium (Synthroid -) 75 mcg PO DAILY@0700 [facility] Last Admin: 07/15/18 06:14 Dose: 75 mcg Methylprednisolone Sodium Succinate (Solu-Medrol -) 40 mg IVPUSH Q12H [facility] Last Admin: 07/15/18 02:09 Dose: 40 mg Multivitamins/Minerals/Vitamin C (Tab-A-Vit -) 1 tab PO DAILY [facility] Pantoprazole Sodium (Protonix -) 40 mg PO DAILY [facility] - Objective Vital Signs: Vital Signs Temperature 97.9 F 07/15/18 06:00 Pulse Rate 77 07/15/18 06:00 Respiratory Rate 20 07/15/18 06:00 Blood Pressure 154/94 07/15/18 06:00 O2 Sat by Pulse Oximetry (%) 99 07/14/18 21:00 Eyes: Yes: WNL, Conjunctiva Clear, EOM Intact HENT: Yes: WNL, Atraumatic, Normocephalic Neck: Yes: WNL, Supple, Trachea Midline Cardiovascular: Yes: Pulse Irregular, S2 Respiratory: Yes: WNL, Regular, CTA Bilaterally Gastrointestinal: Yes: WNL, Normal Bowel Sounds Genitourinary: Yes: WNL Musculoskeletal: Yes: WNL Extremities: Yes: WNL Edema: No Integumentary: Yes: WNL Neurological: Yes: WNL, Alert, Oriented ...Motor Strength: WNL Psychiatric: Yes: WNL Labs: CBC, BMP 07/15/18 07:15 07/15/18 07:15 INR, PTT INR 2.08 (0.83-1.09) H 06/24/18 11:30 Assessment/Plan - Problems (1) Atrial flutter Assessment/Plan: Diltiazem CD 120 mg daily for HR control. Continue apixaban for anticoagulation. d/c telemetry Code(s): I48.92 - UNSPECIFIED ATRIAL FLUTTER (2) CKD (chronic kidney disease) Code(s): N18.9 - CHRONIC KIDNEY DISEASE, UNSPECIFIED Qualifiers: Chronic kidney disease stage: unspecified stage Qualified Code(s): N18.9 - Chronic kidney disease, unspecified (3) COPD exacerbation Assessment/Plan: hx exposure to 2nd hand smoke. Gives hx of "asthma". On bronchodilators, steroids, O2, Bipap per pulmonary. Rx for PNA Code(s): J44.1 - CHRONIC OBSTRUCTIVE PULMONARY DISEASE W (ACUTE) EXACERBATION (4) Chronic diastolic CHF (congestive heart failure) Assessment/Plan: Rising BUN/Cr. Avoid diuretics. -JVD Repeat CXR. Code(s): I50.32 - CHRONIC DIASTOLIC (CONGESTIVE) HEART FAILURE (5) GERD (gastroesophageal reflux disease) Code(s): K21.9 - GASTRO-ESOPHAGEAL REFLUX DISEASE WITHOUT ESOPHAGITIS Qualifiers: Esophagitis presence: esophagitis presence not specified Qualified Code(s) : K21.9 - Gastro-esophageal reflux disease without esophagitis (6) HTN (hypertension) Assessment/Plan: On nifedipine (now changed to diltiazem), hydralazine and furosemide. Code(s): I10 - ESSENTIAL (PRIMARY) HYPERTENSION Qualifiers: Hypertension type: essential hypertension Qualified Code(s): I10 - Essential (primary) hypertension (7) Hypothyroidism Code(s): E03.9 - HYPOTHYROIDISM, UNSPECIFIED Qualifiers: Hypothyroidism type: unspecified Qualified Code(s): E03.9 - Hypothyroidism , unspecified (8) Renal dysfunction Assessment/Plan: Rising BUN/Cr. Avoid dehydration. Code(s): N28.9 - DISORDER OF KIDNEY AND URETER, UNSPECIFIED
[2018-07-15] MEDS ORDERED: PT OWN MED DRAWER 7, Y5N ONE (09:10)
[2018-07-15] MEDS: PANTOPRAZOLE 40 MG TABLET (FP) PO SCH (09:12)
[2018-07-15] MEDS: BUDESONIDE/FORMETEROL FUMARATE 80/4.5 mcg INHALER IH SCH ×2 (09:12→21:22)
[2018-07-15] MEDS: APIXABAN 2.5 MG TABLET PO SCH ×2 (09:13→21:21)
[2018-07-15] MEDS: MULTIVITAMINS (DAILY MVI) TABLET (FP) PO SCH (09:13)
[2018-07-15] MEDS: FUROSEMIDE 40 MG/4 ML INJECTABLE VIAL IVPUSH SCH (09:13)
--- NOTE | 2018-07-15 09:30 | PN ---
Progress Note (short form) - Note Progress Note: Renal follow up for ANNALISA Pt seen and examined at the bedside no acute complaints seems mildly sob off BIPAP no CP, abd pain, N/V/D Vital Signs Temperature 97.9 F 07/15/18 06:00 Pulse Rate 77 07/15/18 06:00 Respiratory Rate 20 07/15/18 06:00 Blood Pressure 154/94 07/15/18 06:00 O2 Sat by Pulse Oximetry (%) 99 07/14/18 21:00 Intake & Output 07/12/18 07/13/18 07/14/18 07/15/18 23:59 23:59 23:59 23:59 Intake Total 1490 604 850 100 Output Total 1150 900 500 Balance 340 -296 350 100 NAD on BIPAP RRR Dec BS b/l Lung ribera no LE edema CBC, BMP 07/15/18 07:15 07/15/18 07:15 Current Medications Acetaminophen (Tylenol -) 650 mg PO Q6H PRN PRN Reason: PAIN LEVEL 1-5 Last Admin: 07/15/18 06:21 Dose: 650 mg Apixaban (Eliquis -) 2.5 mg PO BID [facility] Last Admin: 07/15/18 09:13 Dose: 2.5 mg Atorvastatin Calcium (Lipitor -) 10 mg PO HS [facility] Last Admin: 07/14/18 22:09 Dose: 10 mg Budesonide/Formoterol Fumarate (Symbicort 80/4.5mcg -) 2 puff IH BID [facility] Last Admin: 07/15/18 09:12 Dose: 2 puff Diltiazem HCl (Cardizem Cd -) 120 mg PO DAILY [facility] Last Admin: 07/15/18 09:13 Dose: 120 mg Furosemide (Lasix Injection -) 40 mg IVPUSH DAILY [facility] Last Admin: 07/15/18 09:13 Dose: 40 mg Hydralazine HCl (Apresoline -) 50 mg PO TID [facility] Last Admin: 07/15/18 06:14 Dose: 50 mg Meropenem 500 mg/ Dextrose 100 mls @ 200 mls/hr IVPB BID@0600,1800 [facility] Last Admin: 07/15/18 06:14 Dose: 200 mls/hr Levothyroxine Sodium (Synthroid -) 75 mcg PO DAILY@0700 [facility] Last Admin: 07/15/18 06:14 Dose: 75 mcg Methylprednisolone Sodium Succinate (Solu-Medrol -) 40 mg IVPUSH Q12H [facility] Last Admin: 07/15/18 02:09 Dose: 40 mg Multivitamins/Minerals/Vitamin C (Tab-A-Vit -) 1 tab PO DAILY [facility] Last Admin: 07/15/18 09:13 Dose: 1 tab Pantoprazole Sodium (Protonix -) 40 mg PO DAILY [facility] Last Admin: 07/15/18 09:12 Dose: 40 mg 82 year old AA gentleman with history of CKD, Hyperlipidemia, CHF, COPD, Afib, Hypothyroidism who presented with SOB and Fever and found to have PNA + CHF and developed ANNALISA. #ANNALISA on CKD likely due to intravascular volume depletion in setting of IV diuretics #CKD #PNA #CHF #COPD/Reactive airway disease #Anemia #Gallstones/Gallbladder wall thickening Renal function improving with IV diuresis Continue Lasix IV dialy, will give additional dose this evening repeat CXR in the AM Continue BIPAP as needed Pulmonary follow up Pravin Veras DO
[2018-07-15 11:23] LABS: PLATELET ESTIMATE ADEQUATE
--- NOTE | 2018-07-15 11:46 | PN ---
Progress Note (short form) - Note Progress Note: Mildly tachypneic on NC O2. Used NIPPV overnight. Afebrile. No CP. Intake & Output 07/12/18 07/13/18 07/14/18 07/15/18 23:59 23:59 23:59 23:59 Intake Total 1490 604 850 100 Output Total 1150 900 500 Balance 340 -296 350 100 Last Vital Signs Temp Pulse Resp BP Pulse Ox 97.9 F 77 20 154/94 99 07/15/18 06:00 07/15/18 06:00 07/15/18 06:00 07/15/18 06:00 07/14/18 21:00 Active Medications Acetaminophen (Tylenol -) 650 mg PO Q6H PRN PRN Reason: PAIN LEVEL 1-5 Last Admin: 07/15/18 06:21 Dose: 650 mg Apixaban (Eliquis -) 2.5 mg PO BID [facility] Last Admin: 07/15/18 09:13 Dose: 2.5 mg Atorvastatin Calcium (Lipitor -) 10 mg PO HS [facility] Last Admin: 07/14/18 22:09 Dose: 10 mg Budesonide/Formoterol Fumarate (Symbicort 80/4.5mcg -) 2 puff IH BID [facility] Last Admin: 07/15/18 09:12 Dose: 2 puff Diltiazem HCl (Cardizem Cd -) 120 mg PO DAILY [facility] Last Admin: 07/15/18 09:13 Dose: 120 mg Furosemide (Lasix Injection -) 40 mg IVPUSH DAILY [facility] Last Admin: 07/15/18 09:13 Dose: 40 mg Furosemide (Lasix Injection -) 40 mg IVPUSH ONCE ONE Stop: 07/15/18 14:01 Hydralazine HCl (Apresoline -) 50 mg PO TID [facility] Last Admin: 07/15/18 06:14 Dose: 50 mg Meropenem 500 mg/ Dextrose 100 mls @ 200 mls/hr IVPB BID@0600,1800 [facility] Last Admin: 07/15/18 06:14 Dose: 200 mls/hr Levothyroxine Sodium (Synthroid -) 75 mcg PO DAILY@0700 [facility] Last Admin: 07/15/18 06:14 Dose: 75 mcg Methylprednisolone Sodium Succinate (Solu-Medrol -) 40 mg IVPUSH Q12H [facility] Last Admin: 07/15/18 02:09 Dose: 40 mg Multivitamins/Minerals/Vitamin C (Tab-A-Vit -) 1 tab PO DAILY [facility] Last Admin: 07/15/18 09:13 Dose: 1 tab Pantoprazole Sodium (Protonix -) 40 mg PO DAILY [facility] Last Admin: 07/15/18 09:12 Dose: 40 mg Constitutional: Yes: Mildly tachypneic on NC O2, NAD Eyes: Yes: WNL HENT: Yes: WNL Neck: Yes: WNL Cardiovascular: Yes: Regular Rate and Rhythm, S1, S2 Respiratory: Yes: Basilar Rales/rhonchi Gastrointestinal: Yes: Normal Bowel Sounds, Soft Extremities: Yes: WNL Edema: No Labs: Laboratory Results - last 24 hr 07/15/18 07/15/18 07:15 07:15 WBC 9.6 RBC 3.47 L Hgb 9.0 L Hct 27.6 L MCV 79.6 L MCH 26.0 MCHC 32.7 RDW 20.1 H Plt Count 282 MPV 6.8 L Absolute Neuts (auto) 9.1 H Neutrophils % 95.6 H Neutrophils % (Manual) 95.0 H Band Neutrophils % 1.0 Lymphocytes % 1.4 L D Lymphocytes % (Manual) 3.0 L D Monocytes % 2.9 L Monocytes % (Manual) 1 L Eosinophils % 0.0 Eosinophils % (Manual) 0.0 Basophils % 0.1 Basophils % (Manual) 0.0 Nucleated RBC % 0 Platelet Estimate Adequate Sodium 146 H Potassium 3.5 Chloride 99 Carbon Dioxide 37 H Anion Gap 10 BUN 86 H Creatinine 1.5 H Creat Clearance w eGFR 44.59 Random Glucose 170 H Calcium 7.2 L Magnesium 2.6 H Assessment/Plan ASSESSMENT AND PLAN: Acute on Chronic Hypoxic Respiratory Failure Pneumonia CHF Acute Kidney Injury Acute COPD Exacerbation Acute on Chronic Diastolic Heart Failure Pulmonary HTN Atrial Flutter with RVR HTN Hyperlipidemia Hypothyroidism - inhaled bronchodilators standing and PRN - ABX per ID - Lasix - NIPPV support - VM O2 as tolerated - AC - Monitor urine output, creatinine - Will further taper steroids by tomorrow Dr Dyer
[2018-07-15] MEDS ORDERED: FUROSEMIDE 40 MG/4 ML INJECTABLE VIAL IVPUSH ONE (14:00)
--- NOTE | 2018-07-15 14:30 | PN ---
Progress Note (short form) - Note Progress Note: comfortable on bipap feels better all f/u noted Vital Signs Temp 97.9 F 07/15/18 10:00 Pulse 68 07/15/18 10:00 Resp 22 07/15/18 10:00 BP 154/89 07/15/18 10:00 Pulse Ox 99 07/15/18 10:00 Intake & Output 07/14/18 07/15/18 07/15/18 23:59 11:59 23:59 Intake Total 500 100 Balance 500 100 Intake: IVPB 100 100 Oral 400 Other: Voiding Method Incontinent Bedpan # Unmeasured Voids Void 2 1 Bowel Movement Yes Yes # Bowel Movements 2 1 Active Medications Acetaminophen (Tylenol -) 650 mg PO Q6H PRN PRN Reason: PAIN LEVEL 1-5 Last Admin: 07/15/18 06:21 Dose: 650 mg Apixaban (Eliquis -) 2.5 mg PO BID [facility] Last Admin: 07/15/18 09:13 Dose: 2.5 mg Atorvastatin Calcium (Lipitor -) 10 mg PO HS [facility] Last Admin: 07/14/18 22:09 Dose: 10 mg Budesonide/Formoterol Fumarate (Symbicort 80/4.5mcg -) 2 puff IH BID [facility] Last Admin: 07/15/18 09:12 Dose: 2 puff Diltiazem HCl (Cardizem Cd -) 120 mg PO DAILY [facility] Last Admin: 07/15/18 09:13 Dose: 120 mg Furosemide (Lasix Injection -) 40 mg IVPUSH DAILY [facility] Last Admin: 07/15/18 09:13 Dose: 40 mg Hydralazine HCl (Apresoline -) 50 mg PO TID [facility] Last Admin: 07/15/18 13:43 Dose: 50 mg Meropenem 500 mg/ Dextrose 100 mls @ 200 mls/hr IVPB BID@0600,1800 [facility] Last Admin: 07/15/18 06:14 Dose: 200 mls/hr Levothyroxine Sodium (Synthroid -) 75 mcg PO DAILY@0700 [facility] Last Admin: 07/15/18 06:14 Dose: 75 mcg Methylprednisolone Sodium Succinate (Solu-Medrol -) 40 mg IVPUSH Q12H [facility] Last Admin: 07/15/18 13:44 Dose: 40 mg Multivitamins/Minerals/Vitamin C (Tab-A-Vit -) 1 tab PO DAILY [facility] Last Admin: 07/15/18 09:13 Dose: 1 tab Pantoprazole Sodium (Protonix -) 40 mg PO DAILY [facility] Last Admin: 07/15/18 09:12 Dose: 40 mg CBC, BMP 07/15/18 07:15 07/15/18 07:15 Physical Examination Constitutional: Yes: alert and awake. comfortable Eyes: Yes: Conjunctiva Clear Neck: Yes: Supple, Other (no jvd) Cardiovascular: Yes: Pulse Irregular Respiratory: Yes:ronchi+, decreased breath sounds B/l Gastrointestinal: Yes: Soft/ non tender . bowel sound present, no edema Neurological: Yes: Alert Psychiatric: Yes: Alert Assessment/Plan BIPAP as needed Continue present care Abx iv steroids-- taper clinical condition- guarded monitor nebulizer treatment monitor lytes on i/v lasix renal also following will follow Problem List - Problems (1) Respiratory failure with hypoxia Code(s): J96.91 - RESPIRATORY FAILURE, UNSPECIFIED WITH HYPOXIA (2) Chronic diastolic CHF (congestive heart failure) Code(s): I50.32 - CHRONIC DIASTOLIC (CONGESTIVE) HEART FAILURE (3) HTN (hypertension) Code(s): I10 - ESSENTIAL (PRIMARY) HYPERTENSION Qualifiers: Hypertension type: essential hypertension Qualified Code(s): I10 - Essential (primary) hypertension (4) Hypothyroidism Code(s): E03.9 - HYPOTHYROIDISM, UNSPECIFIED Qualifiers: Hypothyroidism type: unspecified Qualified Code(s): E03.9 - Hypothyroidism , unspecified (5) Paroxysmal A-fib Code(s): I48.0 - PAROXYSMAL ATRIAL FIBRILLATION
[2018-07-15] MEDS: ATORVASTATIN CA 10 MG TABLET (FP) PO SCH (21:22)
[2018-07-16] MEDS: ACETAMINOPHEN 325 MG TABLET (FP) PO PRN ×2 (00:47→18:51)
[2018-07-16] MEDS: methylPREDNISolone NA SUCC 40 MG/1 ML VIAL IVPUSH SCH ×2 (01:47→15:30)
[2018-07-16] MEDS: LEVOTHYROXINE NA 75 MCG TABLET (FP) PO SCH (06:16)
[2018-07-16] MEDS: MEROPENEM 500 MG in DEXTROSE 5%-WATER 100 ML IVPB SCH ×2 (06:16→17:23)
[2018-07-16] MEDS: hydrALAZINE HCL 50 MG TABLET (FP) PO SCH ×3 (06:16→22:33)
--- NOTE | 2018-07-16 11:00 | PN ---
Progress Note, Physician History of Present Illness: pulmonary alert,feeling better dyspnea improving on nasal cannula - Current Medication List Current Medications: Active Medications Acetaminophen (Tylenol -) 650 mg PO Q6H PRN PRN Reason: PAIN LEVEL 1-5 Last Admin: 07/16/18 00:47 Dose: 650 mg Apixaban (Eliquis -) 2.5 mg PO BID [facility] Last Admin: 07/15/18 21:21 Dose: 2.5 mg Atorvastatin Calcium (Lipitor -) 10 mg PO HS [facility] Last Admin: 07/15/18 21:22 Dose: 10 mg Budesonide/Formoterol Fumarate (Symbicort 80/4.5mcg -) 2 puff IH BID [facility] Last Admin: 07/15/18 21:22 Dose: 2 puff Diltiazem HCl (Cardizem Cd -) 120 mg PO DAILY [facility] Last Admin: 07/15/18 09:13 Dose: 120 mg Furosemide (Lasix Injection -) 40 mg IVPUSH BID@0600,1400 [facility] Hydralazine HCl (Apresoline -) 50 mg PO TID [facility] Last Admin: 07/16/18 06:16 Dose: 50 mg Meropenem 500 mg/ Dextrose 100 mls @ 200 mls/hr IVPB BID@0600,1800 [facility] Last Admin: 07/16/18 06:16 Dose: 200 mls/hr Levothyroxine Sodium (Synthroid -) 75 mcg PO DAILY@0700 [facility] Last Admin: 07/16/18 06:16 Dose: 75 mcg Methylprednisolone Sodium Succinate (Solu-Medrol -) 40 mg IVPUSH Q12H [facility] Last Admin: 07/16/18 01:47 Dose: 40 mg Multivitamins/Minerals/Vitamin C (Tab-A-Vit -) 1 tab PO DAILY [facility] Last Admin: 07/15/18 09:13 Dose: 1 tab Pantoprazole Sodium (Protonix -) 40 mg PO DAILY [facility] Last Admin: 07/15/18 09:12 Dose: 40 mg - Objective Vital Signs: Vital Signs Temperature 97.7 F 07/16/18 06:00 Pulse Rate 72 07/16/18 08:15 Respiratory Rate 24 07/16/18 06:00 Blood Pressure 155/74 07/16/18 06:00 O2 Sat by Pulse Oximetry (%) 98 07/16/18 08:15 Constitutional: Yes: Well Nourished, Calm Eyes: Yes: WNL HENT: Yes: WNL Neck: Yes: WNL Cardiovascular: Yes: Regular Rate and Rhythm, S1, S2 Respiratory: Yes: Rales (bibasailar rales) Gastrointestinal: Yes: Normal Bowel Sounds, Soft Extremities: Yes: WNL Edema: No Labs: CBC, BMP - ....Imaging Chest X-ray: Image Reviewed Assessment/Plan ASSESSMENT AND PLAN: Acute on Chronic Hypoxic Respiratory Failure improving Pneumonia CHF Acute Kidney Injury Acute COPD Exacerbation Acute on Chronic Diastolic Heart Failure Pulmonary HTN Atrial Flutter with RVR HTN Hyperlipidemia Hypothyroidism - inhaled bronchodilators standing and PRN - abx as per id - iv lasix - NIPPV - taper FiO2 to keep SpO2>90% - rate control - anticoagulation - monitor urine output, creatinine - steroids DR MENDOZA
[2018-07-16] MEDS ORDERED: PT OWN MED DRAWER 7, Y5N ONE ×2 (11:06→15:06)
[2018-07-16] MEDS: FUROSEMIDE 40 MG/4 ML INJECTABLE VIAL IVPUSH SCH ×2 (11:07→15:30)
[2018-07-16] MEDS: MULTIVITAMINS (DAILY MVI) TABLET (FP) PO SCH (11:09)
[2018-07-16] MEDS: PANTOPRAZOLE 40 MG TABLET (FP) PO SCH (11:09)
[2018-07-16] MEDS: APIXABAN 2.5 MG TABLET PO SCH ×2 (11:09→22:33)
[2018-07-16] MEDS: BUDESONIDE/FORMETEROL FUMARATE 80/4.5 mcg INHALER IH SCH ×2 (11:09→22:33)
--- NOTE | 2018-07-16 11:19 | PN ---
Progress Note, Physician History of Present Illness: Patient is a 82 year old male was sent from [facility] for worsening SOB. Patient reports that since many years he has had SOB due to COPD, has been on Oxygen intermittently for 6 yrs but since October,, has been using continuously. Since few days before admission, he had SOB, worsening, associated with wheezing, cough. It was productive, yellowish sputum. Denies chest pain, palpitation, abdominal pain, nausea or vomiting. Bowel/Bladder habit normal. Bowel movement was yesterday. Sleep/Appetite normal. 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 Smoking: Quit in 1955, smoked for 15 yrs, < 1pack/day Alcohol: Occasional quit years ago Drugs: Denies - Current Medication List Current Medications: Active Medications Acetaminophen (Tylenol -) 650 mg PO Q6H PRN PRN Reason: PAIN LEVEL 1-5 Last Admin: 07/16/18 00:47 Dose: 650 mg Apixaban (Eliquis -) 2.5 mg PO BID [facility] Last Admin: 07/16/18 11:09 Dose: 2.5 mg Atorvastatin Calcium (Lipitor -) 10 mg PO HS [facility] Last Admin: 07/15/18 21:22 Dose: 10 mg Budesonide/Formoterol Fumarate (Symbicort 80/4.5mcg -) 2 puff IH BID [facility] Last Admin: 07/16/18 11:09 Dose: 2 puff Diltiazem HCl (Cardizem Cd -) 120 mg PO DAILY [facility] Last Admin: 07/16/18 11:09 Dose: 120 mg Furosemide (Lasix Injection -) 40 mg IVPUSH BID@0600,1400 [facility] Hydralazine HCl (Apresoline -) 50 mg PO TID [facility] Last Admin: 07/16/18 06:16 Dose: 50 mg Meropenem 500 mg/ Dextrose 100 mls @ 200 mls/hr IVPB BID@0600,1800 [facility] Last Admin: 09/17/18 06:16 Dose: 200 mls/hr Levothyroxine Sodium (Synthroid -) 75 mcg PO DAILY@0700 [facility] Last Admin: 07/16/18 06:16 Dose: 75 mcg Methylprednisolone Sodium Succinate (Solu-Medrol -) 40 mg IVPUSH Q12H [facility] Last Admin: 07/16/18 01:47 Dose: 40 mg Multivitamins/Minerals/Vitamin C (Tab-A-Vit -) 1 tab PO DAILY [facility] Last Admin: 07/16/18 11:09 Dose: 1 tab Pantoprazole Sodium (Protonix -) 40 mg PO DAILY [facility] Last Admin: 07/16/18 11:09 Dose: 40 mg - Objective Vital Signs: Vital Signs Temperature 97.7 F 07/16/18 06:00 Pulse Rate 72 07/16/18 08:15 Respiratory Rate 24 07/16/18 06:00 Blood Pressure 155/74 07/16/18 06:00 O2 Sat by Pulse Oximetry (%) 98 07/16/18 08:15 Eyes: Yes: WNL, Conjunctiva Clear, EOM Intact HENT: Yes: WNL, Atraumatic, Normocephalic Neck: Yes: WNL, Supple, Trachea Midline Cardiovascular: Yes: Pulse Irregular, S1, S2 Respiratory: Yes: WNL, Regular, CTA Bilaterally Gastrointestinal: Yes: WNL, Normal Bowel Sounds Genitourinary: Yes: WNL Musculoskeletal: Yes: WNL Extremities: Yes: WNL Edema: No Integumentary: Yes: WNL Neurological: Yes: WNL, Alert, Oriented ...Motor Strength: WNL Psychiatric: Yes: WNL Labs: CBC, BMP 07/15/18 07:15 07/15/18 07:15 INR, PTT INR 2.08 (0.83-1.09) H 06/24/18 11:30 Assessment/Plan - Problems (1) Atrial flutter Assessment/Plan: Diltiazem CD 120 mg daily for HR control. Continue apixaban for anticoagulation. d/c telemetry Code(s): I48.92 - UNSPECIFIED ATRIAL FLUTTER (2) CKD (chronic kidney disease) Code(s): N18.9 - CHRONIC KIDNEY DISEASE, UNSPECIFIED Qualifiers: Chronic kidney disease stage: unspecified stage Qualified Code(s): N18.9 - Chronic kidney disease, unspecified (3) COPD exacerbation Assessment/Plan: hx exposure to 2nd hand smoke. Gives hx of "asthma". On bronchodilators, steroids, O2, Bipap per pulmonary. Rx for PNA Code(s): J44.1 - CHRONIC OBSTRUCTIVE PULMONARY DISEASE W (ACUTE) EXACERBATION (4) Chronic diastolic CHF (congestive heart failure) Assessment/Plan: Rising BUN/Cr. Avoid diuretics. -JVD Repeat CXR. Code(s): I50.32 - CHRONIC DIASTOLIC (CONGESTIVE) HEART FAILURE (5) GERD (gastroesophageal reflux disease) Code(s): K21.9 - GASTRO-ESOPHAGEAL REFLUX DISEASE WITHOUT ESOPHAGITIS Qualifiers: Esophagitis presence: esophagitis presence not specified Qualified Code(s) : K21.9 - Gastro-esophageal reflux disease without esophagitis (6) HTN (hypertension) Assessment/Plan: On nifedipine (now changed to diltiazem), hydralazine and furosemide. Code(s): I10 - ESSENTIAL (PRIMARY) HYPERTENSION Qualifiers: Hypertension type: essential hypertension Qualified Code(s): I10 - Essential (primary) hypertension (7) Hypothyroidism Code(s): E03.9 - HYPOTHYROIDISM, UNSPECIFIED Qualifiers: Hypothyroidism type: unspecified Qualified Code(s): E03.9 - Hypothyroidism , unspecified (8) Renal dysfunction Assessment/Plan: Rising BUN/Cr. Avoid dehydration. Code(s): N28.9 - DISORDER OF KIDNEY AND URETER, UNSPECIFIED
--- NOTE | 2018-07-16 11:37 | PN ---
Progress Note (short form) - Note Progress Note: Renal follow up for ANNALISA Pt seen and examined at the bedside reports that he feels better used bipap overnight making urine no cp, abd pain, N/V/D Vital Signs Temperature 97.7 F 07/16/18 06:00 Pulse Rate 72 07/16/18 08:15 Respiratory Rate 24 07/16/18 06:00 Blood Pressure 155/74 07/16/18 06:00 O2 Sat by Pulse Oximetry (%) 92 L 07/16/18 11:34 Intake & Output 07/13/18 07/14/18 07/15/18 07/16/18 23:59 23:59 23:59 23:59 Intake Total 604 850 900 Output Total 900 500 Balance -296 350 900 Weight 81.012 kg NAD on BIPAP RRR Dec BS b/l Lung ribera no LE edema CBC, BMP 07/15/18 07:15 07/15/18 07:15 Current Medications Acetaminophen (Tylenol -) 650 mg PO Q6H PRN PRN Reason: PAIN LEVEL 1-5 Last Admin: 07/16/18 00:47 Dose: 650 mg Apixaban (Eliquis -) 2.5 mg PO BID [facility] Last Admin: 07/16/18 11:09 Dose: 2.5 mg Atorvastatin Calcium (Lipitor -) 10 mg PO HS [facility] Last Admin: 07/15/18 21:22 Dose: 10 mg Budesonide/Formoterol Fumarate (Symbicort 80/4.5mcg -) 2 puff IH BID [facility] Last Admin: 07/16/18 11:09 Dose: 2 puff Diltiazem HCl (Cardizem Cd -) 120 mg PO DAILY [facility] Last Admin: 07/16/18 11:09 Dose: 120 mg Furosemide (Lasix Injection -) 40 mg IVPUSH BID@0600,1400 [facility] Hydralazine HCl (Apresoline -) 50 mg PO TID [facility] Last Admin: 07/16/18 06:16 Dose: 50 mg Meropenem 500 mg/ Dextrose 100 mls @ 200 mls/hr IVPB BID@0600,1800 [facility] Last Admin: 07/16/18 06:16 Dose: 200 mls/hr Levothyroxine Sodium (Synthroid -) 75 mcg PO DAILY@0700 [facility] Last Admin: 07/16/18 06:16 Dose: 75 mcg Methylprednisolone Sodium Succinate (Solu-Medrol -) 40 mg IVPUSH Q12H [facility] Last Admin: 07/16/18 01:47 Dose: 40 mg Multivitamins/Minerals/Vitamin C (Tab-A-Vit -) 1 tab PO DAILY [facility] Last Admin: 07/16/18 11:09 Dose: 1 tab Pantoprazole Sodium (Protonix -) 40 mg PO DAILY [facility] Last Admin: 07/16/18 11:09 Dose: 40 mg 82 year old AA gentleman with history of CKD, Hyperlipidemia, CHF, COPD, Afib, Hypothyroidism who presented with SOB and Fever and found to have PNA + CHF and developed ANNALISA. #ANNALISA on CKD, now improving with diuretics #CKD #PNA #CHF improving #COPD/Reactive airway disease #Anemia #Gallstones/Gallbladder wall thickening Renal function improving with IV diuresis Will continue IV Lasix BID Trend renal function, electrolytes, and daily weights BIPAP as needed taper steroids as per pulmonary Abx as per ROBERTO Veras DO
--- NOTE | 2018-07-16 11:42 | PN ---
Progress Note (short form) - Note Progress Note: awake/ comfortable feels better afebrile denies pain breathing better Vital Signs Temp 97.7 F 07/16/18 06:00 Pulse 72 07/16/18 08:15 Resp 24 07/16/18 06:00 BP 155/74 07/16/18 06:00 Pulse Ox 92 L 07/16/18 11:34 Intake & Output 07/15/18 07/15/18 07/16/18 11:59 23:59 11:59 Intake Total 100 800 Balance 100 800 Weight 178 lb 9.6 oz Intake: IVPB 100 100 Oral 700 Other: Voiding Method Bedpan Incontinent Incontinent # Unmeasured Voids Void 1 6 2 Bowel Movement Yes Yes Yes # Bowel Movements 1 6 1 Weight Measurement Method Patient Lift Scale Active Medications Acetaminophen (Tylenol -) 650 mg PO Q6H PRN PRN Reason: PAIN LEVEL 1-5 Last Admin: 07/16/18 00:47 Dose: 650 mg Apixaban (Eliquis -) 2.5 mg PO BID [facility] Last Admin: 07/16/18 11:09 Dose: 2.5 mg Atorvastatin Calcium (Lipitor -) 10 mg PO HS [facility] Last Admin: 07/15/18 21:22 Dose: 10 mg Budesonide/Formoterol Fumarate (Symbicort 80/4.5mcg -) 2 puff IH BID [facility] Last Admin: 07/16/18 11:09 Dose: 2 puff Diltiazem HCl (Cardizem Cd -) 120 mg PO DAILY [facility] Last Admin: 07/16/18 11:09 Dose: 120 mg Furosemide (Lasix Injection -) 40 mg IVPUSH BID@0600,1400 [facility] Hydralazine HCl (Apresoline -) 50 mg PO TID [facility] Last Admin: 07/16/18 06:16 Dose: 50 mg Meropenem 500 mg/ Dextrose 100 mls @ 200 mls/hr IVPB BID@0600,1800 [facility] Last Admin: 07/16/18 06:16 Dose: 200 mls/hr Levothyroxine Sodium (Synthroid -) 75 mcg PO DAILY@0700 [facility] Last Admin: 07/16/18 06:16 Dose: 75 mcg Methylprednisolone Sodium Succinate (Solu-Medrol -) 40 mg IVPUSH Q12H [facility] Last Admin: 07/16/18 01:47 Dose: 40 mg Multivitamins/Minerals/Vitamin C (Tab-A-Vit -) 1 tab PO DAILY [facility] Last Admin: 07/16/18 11:09 Dose: 1 tab Pantoprazole Sodium (Protonix -) 40 mg PO DAILY [facility] Last Admin: 07/16/18 11:09 Dose: 40 mg CBC, BMP 07/15/18 07:15 07/15/18 07:15 Physical Examination Constitutional: Yes: alert and awake. comfortable Eyes: Yes: Conjunctiva Clear Neck: Yes: Supple, Other (no jvd) Cardiovascular: Yes: Pulse Irregular Respiratory: Yes Bilateral Rhonchi Gastrointestinal: Yes: Soft/ non tender . bowel sound present, no edema Neurological: Yes: Alert Psychiatric: Yes: Alert Assessment/Plan BIPAP as needed Continue present care Abx iv steroids-- taper clinical condition- Improved monitor nebulizer treatment monitor lytes on i/v lasix renal also following will follow Problem List - Problems (1) Respiratory failure with hypoxia Code(s): J96.91 - RESPIRATORY FAILURE, UNSPECIFIED WITH HYPOXIA (2) Chronic diastolic CHF (congestive heart failure) Code(s): I50.32 - CHRONIC DIASTOLIC (CONGESTIVE) HEART FAILURE (3) HTN (hypertension) Code(s): I10 - ESSENTIAL (PRIMARY) HYPERTENSION Qualifiers: Hypertension type: essential hypertension Qualified Code(s): I10 - Essential (primary) hypertension (4) Hypothyroidism Code(s): E03.9 - HYPOTHYROIDISM, UNSPECIFIED Qualifiers: Hypothyroidism type: unspecified Qualified Code(s): E03.9 - Hypothyroidism , unspecified (5) Paroxysmal A-fib Code(s): I48.0 - PAROXYSMAL ATRIAL FIBRILLATION
--- NOTE | 2018-07-16 11:50 | PN ---
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 BIPAP at night. Tolerating diet. HOB elevated during and after meals. GERD precautions. Pt reports that he is returning to [facility] tomorrow.
[2018-07-16] MEDS: CLOTRIMAZOLE 1% CREAM 15 GM TUBE TP SCH ×2 (15:30→22:33)
--- NOTE | 2018-07-16 16:26 | PN ---
Progress Note (short form) - Note Progress Note: clinically improved back on 5 off telemetry Vital Signs Period Temp Pulse Resp BP Sys/[place] Pulse Ox Last 24 Hr 97.7 F-98.4 F 72-94 22-26 141-155/74-98 92-99 cor-rrr lungs decreased bs at bases right base crackles abd soft,nt ext no edema CBC, BMP 07/15/18 07:15 07/15/18 07:15 Microbiology 07/10/18 19:30 Urine For Antigen Detection Legionella Antigen - Final 07/10/18 19:30 Urine For Antigen Detection Streptococcus pneumoniae Antigen (M - Final 06/24/18 21:15 Blood - Peripheral Venous Blood Culture - Final NO GROWTH AFTER 5 DAYS INCUBATION 06/24/18 21:10 Blood - Peripheral Venous Blood Culture - Final NO GROWTH AFTER 5 DAYS INCUBATION 06/24/18 11:30 Blood - Peripheral Venous Blood Culture - Final NO GROWTH AFTER 5 DAYS INCUBATION 06/24/18 11:30 Blood - Peripheral Venous Blood Culture - Final NO GROWTH AFTER 5 DAYS INCUBATION 06/26/18 14:00 Nares - Mrsa Screen - Left MRSA Screen - Final NO MRSA ISOLATED 06/26/18 14:00 Nares - Mrsa Screen - Right MRSA Screen - Final NO MRSA ISOLATED 06/25/18 07:00 Sputum - Expectorated Gram Stain - Final 06/25/18 07:00 Sputum - Expectorated Sputum Culture - Final NORMAL RESPIRATORY JOANNA 06/24/18 19:50 Urine - Urine Clean Catch Legionella Antigen - Final 06/24/18 19:50 Urine - Urine Clean Catch Streptococcus pneumoniae Antigen ( M - Final 06/24/18 13:51 Urine - Urine Clean Catch Urine Culture - Final NO GROWTH OBTAINED 2 cxray RLL infiltrate a/p resp failure with hypoxia-improved, leukocytosis improved day #6 meropenem, WBC now normal- clinically improved consider chest ct would complete 7 days meropenem GERD copd exacerbation Penicillin allergy ckd afib prolonged Qtc Problem List - Problems (1) Respiratory failure with hypoxia Code(s): J96.91 - RESPIRATORY FAILURE, UNSPECIFIED WITH HYPOXIA (2) Pneumonia Code(s): J18.9 - PNEUMONIA, UNSPECIFIED ORGANISM (3) COPD exacerbation Code(s): J44.1 - CHRONIC OBSTRUCTIVE PULMONARY DISEASE W (ACUTE) EXACERBATION (4) CKD (chronic kidney disease) Code(s): N18.9 - CHRONIC KIDNEY DISEASE, UNSPECIFIED Qualifiers: Chronic kidney disease stage: unspecified stage Qualified Code(s): N18.9 - Chronic kidney disease, unspecified (5) Penicillin allergy Code(s): Z88.0 - ALLERGY STATUS TO PENICILLIN
[2018-07-16] MEDS: ATORVASTATIN CA 10 MG TABLET (FP) PO SCH (22:33)
[2018-07-17] MEDS: methylPREDNISolone NA SUCC 40 MG/1 ML VIAL IVPUSH SCH ×2 (02:12→14:42)
[2018-07-17] MEDS: LEVOTHYROXINE NA 75 MCG TABLET (FP) PO SCH (06:11)
[2018-07-17] MEDS: MEROPENEM 500 MG in DEXTROSE 5%-WATER 100 ML IVPB SCH ×2 (06:11→17:24)
[2018-07-17] MEDS: FUROSEMIDE 40 MG/4 ML INJECTABLE VIAL IVPUSH SCH (06:11)
[2018-07-17] MEDS: ACETAMINOPHEN 325 MG TABLET (FP) PO PRN ×3 (06:12→21:20)
[2018-07-17] MEDS: hydrALAZINE HCL 50 MG TABLET (FP) PO SCH ×3 (06:12→21:19)
[2018-07-17 07:48] LABS: BASO % 0.1 % (0-2.0); HEMATOCRIT 28.6 % (35.4-49); HEMOGLOBIN 9.2 GM/dL (11.7-16.9); MCH 26.1 pg (25.7-33.7); MCHC 32.2 g/dl (32.0-35.9); MEAN CELL VOLUME 80.9 fl (80-96); MEAN PLT VOLUME 7.4 fl (7.5-11.1); MONO % 3.2 % (3.8-10.2); NEUT % 95.7 % (42.8-82.8); PLATELET COUNT 303 K/MM3 (134-434); RBC 3.53 M/mm3 (4.00-5.60); RDW 20.5 % (11.9-15.9)
[2018-07-17 08:09] LABS: ANION GAP 5 MMOL/L (8-16); BLOOD UREA NITROGEN 88 mg/dL (7-18); CALCIUM 7.2 mg/dL (8.5-10.1); CHLORIDE 94 mmol/L (98-107); CO2 43 mmol/L (21-32); CREATININE 1.6 mg/dL (0.55-1.3); GLUCOSE,RANDOM 190 mg/dL (74-106); MAGNESIUM 2.5 mg/dL (1.8-2.4); PHOSPHOROUS 4.2 mg/dL (2.5-4.9); POTASSIUM 3.8 mmol/L (3.5-5.1); SODIUM 142 mmol/L (136-145)
[2018-07-17] MEDS ORDERED: PT OWN MED DRAWER 7, Y5N ONE ×2 (10:23→13:43)
[2018-07-17] MEDS: PANTOPRAZOLE 40 MG TABLET (FP) PO SCH (10:38)
[2018-07-17] MEDS: MULTIVITAMINS (DAILY MVI) TABLET (FP) PO SCH (10:38)
[2018-07-17] MEDS: APIXABAN 2.5 MG TABLET PO SCH ×2 (10:38→21:20)
[2018-07-17] MEDS: CLOTRIMAZOLE 1% CREAM 15 GM TUBE TP SCH ×2 (10:38→21:19)
[2018-07-17] MEDS: BUDESONIDE/FORMETEROL FUMARATE 80/4.5 mcg INHALER IH SCH ×2 (10:39→21:19)
[2018-07-17 10:49] LABS: ANISOCYTOSIS 1+; MACROCYTOSIS 1+; OVALOCYTE 1+; PLATELET ESTIMATE NORMAL; TARGET CELLS 1+
--- NOTE | 2018-07-17 12:27 | PN ---
Progress Note, Physician Chief Complaint: Pt A&Ox3; remains dyspneic at rest. Nocturia ("every two hours for many years"). History of Present Illness: The patient is an 82M w/ a PMH of COPD, a-fib (Eliquis), CKD, HLD, HTN, diastolic CHF, hypothyroidism who presents from his snf ([facility] ) for worsening shortness of breath, fever (Tm 101.6), and hypoxia despite 3L NC. On arrival, the patient endorses worsening dyspnea and productive cough. He also reports chronic abdominal pain 2/2 hiatal hernia. Patient denies MCGRATH, acute vision change, chest pain, BLE swelling, or changes in sensation. - Current Medication List Current Medications: Active Medications Acetaminophen (Tylenol -) 650 mg PO Q6H PRN PRN Reason: PAIN LEVEL 1-5 Last Admin: 07/17/18 06:12 Dose: 650 mg Apixaban (Eliquis -) 2.5 mg PO BID [facility] Last Admin: 07/17/18 10:38 Dose: 2.5 mg Atorvastatin Calcium (Lipitor -) 10 mg PO HS [facility] Last Admin: 07/16/18 22:33 Dose: 10 mg Budesonide/Formoterol Fumarate (Symbicort 80/4.5mcg -) 2 puff IH BID [facility] Last Admin: 07/17/18 10:39 Dose: 2 puff Clotrimazole (Lotrimin 1% Cream -) 1 applic TP BID [facility] Last Admin: 07/17/18 10:38 Dose: 1 applic Diltiazem HCl (Cardizem Cd -) 120 mg PO DAILY [facility] Last Admin: 07/17/18 10:38 Dose: 120 mg Furosemide (Lasix Injection -) 40 mg IVPUSH DAILY [facility] Hydralazine HCl (Apresoline -) 50 mg PO TID [facility] Last Admin: 07/17/18 06:12 Dose: 50 mg Meropenem 500 mg/ Dextrose 100 mls @ 200 mls/hr IVPB BID@0600,1800 [facility] Last Admin: 07/17/18 06:11 Dose: 200 mls/hr Levothyroxine Sodium (Synthroid -) 75 mcg PO DAILY@0700 [facility] Last Admin: 07/17/18 06:11 Dose: 75 mcg Methylprednisolone Sodium Succinate (Solu-Medrol -) 40 mg IVPUSH Q12H [facility] Last Admin: 07/17/18 02:12 Dose: 40 mg Multivitamins/Minerals/Vitamin C (Tab-A-Vit -) 1 tab PO DAILY [facility] Last Admin: 07/17/18 10:38 Dose: 1 tab Pantoprazole Sodium (Protonix -) 40 mg PO DAILY [facility] Last Admin: 07/17/18 10:38 Dose: 40 mg - Objective Vital Signs: Vital Signs Temperature 98.2 F 07/17/18 10:00 Pulse Rate 88 07/17/18 10:00 Respiratory Rate 20 07/17/18 10:00 Blood Pressure 144/82 07/17/18 10:00 O2 Sat by Pulse Oximetry (%) 97 07/17/18 08:10 Constitutional: Yes: Anxious, Thin Eyes: Yes: WNL HENT: Yes: WNL Neck: Yes: WNL Cardiovascular: Yes: Tachycardia, S1 (varies in intensity), S2 Respiratory: Yes: Diminished, SOB Gastrointestinal: Yes: Soft ...Rectal Exam: Yes: Deferred Genitourinary: No: Anuria Edema: No Peripheral Pulses WNL: No Peripheral Pulses: Left Doralis Pedis: 1+, Right Dorsalis Pedis: 1+ Neurological: Yes: Alert, Oriented, Weakness Psychiatric: Yes: WNL Labs: CBC, BMP 07/17/18 06:20 07/17/18 06:20 INR, PTT INR 2.08 (0.83-1.09) H 06/24/18 11:30 Abnormal Lab Results 07/17/18 07/17/18 06:20 06:20 WBC 11.0 H RBC 3.53 L Hgb 9.2 L Hct 28.6 L RDW 20.5 H MPV 7.4 L Absolute Neuts (auto) 10.5 H Neutrophils % 95.7 H Neutrophils % (Manual) 96.0 H Lymphocytes % 1.0 L D Lymphocytes % (Manual) 2.0 L D Monocytes % 3.2 L Monocytes % (Manual) 2 L D Chloride 94 L Carbon Dioxide 43 H Anion Gap 5 L BUN 88 H Creatinine 1.6 H Random Glucose 190 H Calcium 7.2 L Magnesium 2.5 H - ....Imaging Chest X-ray: Image Reviewed (scoliosis; no significnat change in mild-moderate vascular and plerual effusion abnormalities of CHF; COPD) Problem List - Problems (1) Atrial flutter Assessment/Plan: Diltiazem CD 120 mg daily for HR control. Continue apixaban for anticoagulation. Code(s): I48.92 - UNSPECIFIED ATRIAL FLUTTER (2) CKD (chronic kidney disease) Code(s): N18.9 - CHRONIC KIDNEY DISEASE, UNSPECIFIED Qualifiers: Chronic kidney disease stage: unspecified stage Qualified Code(s): N18.9 - Chronic kidney disease, unspecified (3) COPD exacerbation Assessment/Plan: hx exposure to 2nd hand smoke. Gives hx of "asthma". On bronchodilators, steroids, O2, Bipap per pulmonary (pt says he has oxygen at home, but not Bipap). Rx for PNA Code(s): J44.1 - CHRONIC OBSTRUCTIVE PULMONARY DISEASE W (ACUTE) EXACERBATION (4) Chronic diastolic CHF (congestive heart failure) Assessment/Plan: On hydralazine and furosemide. F/u BUN/Cr, electrolytes. Code(s): I50.32 - CHRONIC DIASTOLIC (CONGESTIVE) HEART FAILURE (5) GERD (gastroesophageal reflux disease) Code(s): K21.9 - GASTRO-ESOPHAGEAL REFLUX DISEASE WITHOUT ESOPHAGITIS Qualifiers: Esophagitis presence: esophagitis presence not specified Qualified Code(s) : K21.9 - Gastro-esophageal reflux disease without esophagitis (6) HTN (hypertension) Assessment/Plan: On diltiazem, , hydralazine and furosemide. Code(s): I10 - ESSENTIAL (PRIMARY) HYPERTENSION Qualifiers: Hypertension type: essential hypertension Qualified Code(s): I10 - Essential (primary) hypertension (7) Hypothyroidism Assessment/Plan: On sythroid; eevated TSH; normal free T4. Code(s): E03.9 - HYPOTHYROIDISM, UNSPECIFIED Qualifiers: Hypothyroidism type: unspecified Qualified Code(s): E03.9 - Hypothyroidism , unspecified (8) Renal dysfunction Assessment/Plan: Rising BUN/Cr. Avoid dehydration (on furosemide). Code(s): N28.9 - DISORDER OF KIDNEY AND URETER, UNSPECIFIED
--- NOTE | 2018-07-17 13:09 | PN ---
Progress Note (short form) - Note Progress Note: Mildly tachypneic on NC O2. Used NIPPV overnight. Afebrile. No CP. Intake & Output 07/14/18 07/15/18 07/16/18 07/17/18 23:59 23:59 23:59 23:59 Intake Total 166 469 5998 445 Output Total 500 Balance 033 156 7777 445 Weight 178 lb 9.6 oz 174 lb 3.2 oz Last Vital Signs Temp Pulse Resp BP Pulse Ox 98.2 F 88 20 144/82 97 07/17/18 10:00 07/17/18 10:00 07/17/18 10:00 07/17/18 10:00 07/17/18 08:10 Active Medications Acetaminophen (Tylenol -) 650 mg PO Q6H PRN PRN Reason: PAIN LEVEL 1-5 Last Admin: 07/17/18 06:12 Dose: 650 mg Apixaban (Eliquis -) 2.5 mg PO BID [facility] Last Admin: 07/17/18 10:38 Dose: 2.5 mg Atorvastatin Calcium (Lipitor -) 10 mg PO HS [facility] Last Admin: 07/16/18 22:33 Dose: 10 mg Budesonide/Formoterol Fumarate (Symbicort 80/4.5mcg -) 2 puff IH BID [facility] Last Admin: 07/17/18 10:39 Dose: 2 puff Clotrimazole (Lotrimin 1% Cream -) 1 applic TP BID [facility] Last Admin: 07/17/18 10:38 Dose: 1 applic Diltiazem HCl (Cardizem Cd -) 120 mg PO DAILY [facility] Last Admin: 07/17/18 10:38 Dose: 120 mg Furosemide (Lasix Injection -) 40 mg IVPUSH DAILY [facility] Hydralazine HCl (Apresoline -) 50 mg PO TID [facility] Last Admin: 07/17/18 06:12 Dose: 50 mg Meropenem 500 mg/ Dextrose 100 mls @ 200 mls/hr IVPB BID@0600,1800 [facility] Last Admin: 07/17/18 06:11 Dose: 200 mls/hr Levothyroxine Sodium (Synthroid -) 75 mcg PO DAILY@0700 [facility] Last Admin: 07/17/18 06:11 Dose: 75 mcg Methylprednisolone Sodium Succinate (Solu-Medrol -) 40 mg IVPUSH Q12H [facility] Last Admin: 07/17/18 02:12 Dose: 40 mg Multivitamins/Minerals/Vitamin C (Tab-A-Vit -) 1 tab PO DAILY [facility] Last Admin: 07/17/18 10:38 Dose: 1 tab Pantoprazole Sodium (Protonix -) 40 mg PO DAILY [facility] Last Admin: 07/17/18 10:38 Dose: 40 mg Constitutional: Yes: Mildly tachypneic on NC O2, NAD Eyes: Yes: WNL HENT: Yes: WNL Neck: Yes: WNL Cardiovascular: Yes: Regular Rate and Rhythm, S1, S2 Respiratory: Yes: Basilar Rales/rhonchi Gastrointestinal: Yes: Normal Bowel Sounds, Soft Extremities: Yes: WNL Edema: No Labs: Laboratory Results - last 24 hr 07/17/18 07/17/18 06:20 06:20 WBC 11.0 H RBC 3.53 L Hgb 9.2 L Hct 28.6 L MCV 80.9 MCH 26.1 MCHC 32.2 RDW 20.5 H Plt Count 303 MPV 7.4 L Absolute Neuts (auto) 10.5 H Neutrophils % 95.7 H Neutrophils % (Manual) 96.0 H Band Neutrophils % 0.0 Lymphocytes % 1.0 L D Lymphocytes % (Manual) 2.0 L D Monocytes % 3.2 L Monocytes % (Manual) 2 L D Eosinophils % 0.0 Eosinophils % (Manual) 0.0 Basophils % 0.1 Basophils % (Manual) 0.0 Myelocytes % (Man) 0 Promyelocytes % (Man) 0 Blast Cells % (Manual) 0 Nucleated RBC % 0 Metamyelocytes 0 Hypochromia 0 Platelet Estimate Normal Polychromasia 0 Poikilocytosis 0 Basophilic Stippling 1+ Anisocytosis 1+ Microcytosis 1+ Macrocytosis 1+ Target Cells 1+ Ovalocytes 1+ Schistocytes 1+ Sodium 142 Potassium 3.8 Chloride 94 L Carbon Dioxide 43 H Anion Gap 5 L BUN 88 H Creatinine 1.6 H Creat Clearance w eGFR 41.39 Random Glucose 190 H Calcium 7.2 L Phosphorus 4.2 Magnesium 2.5 H Assessment/Plan Acute on Chronic Hypoxic Respiratory Failure Pneumonia CHF Acute Kidney Injury Acute COPD Exacerbation Acute on Chronic Diastolic Heart Failure Pulmonary HTN Atrial Flutter with RVR HTN Hyperlipidemia Hypothyroidism - inhaled bronchodilators standing and PRN - ABX per ID - Lasix - NIPPV support - VM O2 as tolerated - AC - Monitor urine output, creatinine - Will further taper steroids by tomorrow if stable Dr Dyer
--- NOTE | 2018-07-17 13:13 | PN ---
Progress Note (short form) - Note Progress Note: Progress Note (short form) - Note Progress Note: uses BIPAP as needed feeling better denies pain Vital Signs - 24 hr 07/16/18 07/16/18 07/16/18 19:10 21:00 22:00 Temperature Pulse Rate 78 Respiratory 20 20 Rate Blood Pressure 146/86 O2 Sat by Pulse 97 99 Oximetry (%) 07/17/18 07/17/18 07/17/18 06:00 08:10 10:00 Temperature 97.8 F 98.2 F Pulse Rate 76 88 Respiratory 20 20 Rate Blood Pressure 140/86 144/82 O2 Sat by Pulse 97 Oximetry (%) 07/17/18 07/17/18 07/17/18 11:10 14:13 14:20 Temperature 98.4 F Pulse Rate 84 Respiratory 28 H Rate Blood Pressure 129/80 O2 Sat by Pulse 93 L 96 Oximetry (%) 07/17/18 18:20 Temperature 97.5 F L Pulse Rate 71 Respiratory 20 Rate Blood Pressure 154/87 O2 Sat by Pulse Oximetry (%) Current Medications Generic Name Dose Route Start Last Admin Trade Name Freq PRN Reason Stop Dose Admin Acetaminophen 650 mg 07/14/18 16:32 07/17/18 14:50 Tylenol - PO 650 mg Q6H PRN Administration PAIN LEVEL 1-5 Apixaban 2.5 mg 07/14/18 22:00 07/17/18 10:38 Eliquis - PO 2.5 mg BID JAGDEEP Administration Atorvastatin Calcium 10 mg 07/14/18 22:00 07/16/18 22:33 Lipitor - PO 10 mg HS JAGDEEP Administration Budesonide/Formoterol Fumarate 2 puff 07/14/18 22:00 07/17/18 10:39 Symbicort 80/4.5mcg - IH 2 puff BID JAGDEEP Administration Clotrimazole 1 applic 07/16/18 12:15 07/17/18 10:38 Lotrimin 1% Cream - TP 1 applic BID JAGDEEP Administration Diltiazem HCl 120 mg 07/12/18 10:00 07/17/18 10:38 Cardizem Cd - PO 120 mg DAILY JAGDEEP Administration Furosemide 40 mg 07/18/18 10:00 Lasix Injection - IVPUSH DAILY JAGDEEP Hydralazine HCl 50 mg 07/14/18 22:00 07/17/18 14:42 Apresoline - PO 50 mg TID JAGDEEP Administration Meropenem 500 mg/ Dextrose 100 mls @ 200 mls/hr 07/10/18 18:00 07/17/18 17:24 IVPB 200 mls/hr BID@0600,1800 JAGDEEP Administration Levothyroxine Sodium 75 mcg 07/15/18 07:00 07/17/18 06:11 Synthroid - PO 75 mcg DAILY@0700 JAGDEEP Administration Methylprednisolone Sodium Succinate 40 mg 07/14/18 14:00 07/17/18 14:42 Solu-Medrol - IVPUSH 40 mg Q12H JAGDEEP Administration Multivitamins/Minerals/Vitamin C 1 tab 07/15/18 10:00 07/17/18 10:38 Tab-A-Vit - PO 1 tab DAILY JAGDEEP Administration Pantoprazole Sodium 40 mg 07/15/18 10:00 07/17/18 10:38 Protonix - PO 40 mg DAILY JAGDEEP Administration Laboratory Results - last 24 hr 07/17/18 07/17/18 06:20 06:20 WBC 11.0 H RBC 3.53 L Hgb 9.2 L Hct 28.6 L MCV 80.9 MCH 26.1 MCHC 32.2 RDW 20.5 H Plt Count 303 MPV 7.4 L Absolute Neuts (auto) 10.5 H Neutrophils % 95.7 H Neutrophils % (Manual) 96.0 H Band Neutrophils % 0.0 Lymphocytes % 1.0 L D Lymphocytes % (Manual) 2.0 L D Monocytes % 3.2 L Monocytes % (Manual) 2 L D Eosinophils % 0.0 Eosinophils % (Manual) 0.0 Basophils % 0.1 Basophils % (Manual) 0.0 Myelocytes % (Man) 0 Promyelocytes % (Man) 0 Blast Cells % (Manual) 0 Nucleated RBC % 0 Metamyelocytes 0 Hypochromia 0 Platelet Estimate Normal Polychromasia 0 Poikilocytosis 0 Basophilic Stippling 1+ Anisocytosis 1+ Microcytosis 1+ Macrocytosis 1+ Target Cells 1+ Ovalocytes 1+ Schistocytes 1+ Sodium 142 Potassium 3.8 Chloride 94 L Carbon Dioxide 43 H Anion Gap 5 L BUN 88 H Creatinine 1.6 H Creat Clearance w eGFR 41.39 Random Glucose 190 H Calcium 7.2 L Phosphorus 4.2 Magnesium 2.5 H Physical Examination Constitutional: Yes: alert and awake Eyes: Yes: Conjunctiva Clear Neck: Yes: Supple, Other (no jvd) Cardiovascular: Yes: Pulse Irregular Respiratory: Yes: decreased breath sounds B/l Gastrointestinal: Yes: Soft/ non tender . bowel sound present, no edema Neurological: Yes: Alert Psychiatric: Yes: Alert Assessment/Plan BIPAP as needed Continue present care Abx- one more day per ID iv steroids BID- taper clinical condition- better monitor nebulizer treatment anticipate dc this week Problem List - Problems (1) Respiratory failure with hypoxia Code(s): J96.91 - RESPIRATORY FAILURE, UNSPECIFIED WITH HYPOXIA (2) Chronic diastolic CHF (congestive heart failure) Code(s): I50.32 - CHRONIC DIASTOLIC (CONGESTIVE) HEART FAILURE (3) HTN (hypertension) Code(s): I10 - ESSENTIAL (PRIMARY) HYPERTENSION Qualifiers: Hypertension type: essential hypertension Qualified Code(s): I10 - Essential (primary) hypertension (4) Hypothyroidism Code(s): E03.9 - HYPOTHYROIDISM, UNSPECIFIED Qualifiers: Hypothyroidism type: unspecified Qualified Code(s): E03.9 - Hypothyroidism , unspecified (5) Paroxysmal A-fib Code(s): I48.0 - PAROXYSMAL ATRIAL FIBRILLATION
--- NOTE | 2018-07-17 15:09 | PN ---
Progress Note (short form) - Note Progress Note: Renal follow up for ANNALISA Pt seen and examined at the bedside reports feeling better on BIPAP Vital Signs Temperature 98.2 F 07/17/18 10:00 Pulse Rate 88 07/17/18 10:00 Respiratory Rate 20 07/17/18 10:00 Blood Pressure 144/82 07/17/18 10:00 O2 Sat by Pulse Oximetry (%) 96 07/17/18 14:13 Intake & Output 07/14/18 07/15/18 07/16/18 07/17/18 23:59 23:59 23:59 23:59 Intake Total 301 748 7167 445 Output Total 500 Balance 240 180 1104 445 Weight 81.012 kg 79.016 kg NAD on BIPAP RRR Dec BS b/l Lung ribera no LE edema CBC, BMP 07/17/18 06:20 07/17/18 06:20 Current Medications Acetaminophen (Tylenol -) 650 mg PO Q6H PRN PRN Reason: PAIN LEVEL 1-5 Last Admin: 07/17/18 14:50 Dose: 650 mg Apixaban (Eliquis -) 2.5 mg PO BID [facility] Last Admin: 07/17/18 10:38 Dose: 2.5 mg Atorvastatin Calcium (Lipitor -) 10 mg PO HS [facility] Last Admin: 07/16/18 22:33 Dose: 10 mg Budesonide/Formoterol Fumarate (Symbicort 80/4.5mcg -) 2 puff IH BID [facility] Last Admin: 07/17/18 10:39 Dose: 2 puff Clotrimazole (Lotrimin 1% Cream -) 1 applic TP BID [facility] Last Admin: 07/17/18 10:38 Dose: 1 applic Diltiazem HCl (Cardizem Cd -) 120 mg PO DAILY [facility] Last Admin: 07/17/18 10:38 Dose: 120 mg Furosemide (Lasix Injection -) 40 mg IVPUSH DAILY [facility] Hydralazine HCl (Apresoline -) 50 mg PO TID [facility] Last Admin: 07/17/18 14:42 Dose: 50 mg Meropenem 500 mg/ Dextrose 100 mls @ 200 mls/hr IVPB BID@0600,1800 [facility] Last Admin: 07/17/18 06:11 Dose: 200 mls/hr Levothyroxine Sodium (Synthroid -) 75 mcg PO DAILY@0700 [facility] Last Admin: 07/17/18 06:11 Dose: 75 mcg Methylprednisolone Sodium Succinate (Solu-Medrol -) 40 mg IVPUSH Q12H [facility] Last Admin: 07/17/18 14:42 Dose: 40 mg Multivitamins/Minerals/Vitamin C (Tab-A-Vit -) 1 tab PO DAILY [facility] Last Admin: 07/17/18 10:38 Dose: 1 tab Pantoprazole Sodium (Protonix -) 40 mg PO DAILY [facility] Last Admin: 07/17/18 10:38 Dose: 40 mg 82 year old AA gentleman with history of CKD, Hyperlipidemia, CHF, COPD, Afib, Hypothyroidism who presented with SOB and Fever and found to have PNA + CHF and developed ANNALISA. #ANNALISA on CKD, now improving with diuretics #CKD #PNA #CHF improving #COPD/Reactive airway disease #Anemia #Gallstones/Gallbladder wall thickening BUN/Cr slightly uptrending, will decrease IV Lasix to once daily Continue BIPAP Trend daily weights, renal function and electrolytes Pravin Veras DO
[2018-07-17] MEDS: ATORVASTATIN CA 10 MG TABLET (FP) PO SCH (21:20)
[2018-07-18] MEDS: methylPREDNISolone NA SUCC 40 MG/1 ML VIAL IVPUSH SCH ×2 (02:42→21:35)
[2018-07-18] MEDS: MEROPENEM 500 MG in DEXTROSE 5%-WATER 100 ML IVPB SCH ×2 (06:25→17:33)
[2018-07-18] MEDS: LEVOTHYROXINE NA 75 MCG TABLET (FP) PO SCH (06:25)
[2018-07-18] MEDS: hydrALAZINE HCL 50 MG TABLET (FP) PO SCH ×3 (06:26→21:36)
[2018-07-18] MEDS ORDERED: INSULIN (LEVEMIR) 100 UNITS/ML UNITS SQ ONE (07:00)
[2018-07-18] MEDS ORDERED: INSULIN (NOVOLOG) ASPART 100 UNITS/ML 10ML VIAL ONE (07:00)
[2018-07-18 07:49] LABS: BASO % 0.2 % (0-2.0); EOS % 0.1 % (0-4.5); HEMATOCRIT 28.8 % (35.4-49); HEMOGLOBIN 9.3 GM/dL (11.7-16.9); MCH 26.6 pg (25.7-33.7); MCHC 32.5 g/dl (32.0-35.9); MEAN CELL VOLUME 81.8 fl (80-96); MEAN PLT VOLUME 7.4 fl (7.5-11.1); MONO % 3.2 % (3.8-10.2); NEUT % 95.5 % (42.8-82.8); PLATELET COUNT 235 K/MM3 (134-434); RBC 3.52 M/mm3 (4.00-5.60); RDW 20.6 % (11.9-15.9); WHITE BLOOD COUNT 10.7 K/mm3 (4.0-10.0)
[2018-07-18 08:55] LABS: ANION GAP 6 MMOL/L (8-16); BLOOD UREA NITROGEN 82 mg/dL (7-18); CHLORIDE 93 mmol/L (98-107); CO2 42 mmol/L (21-32); CREATININE 1.5 mg/dL (0.55-1.3); GLUCOSE,RANDOM 197 mg/dL (74-106); POTASSIUM 3.6 mmol/L (3.5-5.1); SODIUM 141 mmol/L (136-145)
[2018-07-18 08:57] LABS: CALCIUM 6.9 mg/dL (8.5-10.1)
[2018-07-18] MEDS ORDERED: PT OWN MED DRAWER 7, Y5N ONE ×2 (10:41→17:20)
[2018-07-18 10:48] LABS: ANISOCYTOSIS 1+; MACROCYTOSIS 1+; PLATELET ESTIMATE NORMAL
[2018-07-18] MEDS: FUROSEMIDE 40 MG/4 ML INJECTABLE VIAL IVPUSH SCH (10:57)
[2018-07-18] MEDS: BUDESONIDE/FORMETEROL FUMARATE 80/4.5 mcg INHALER IH SCH ×2 (10:57→21:35)
[2018-07-18] MEDS: MULTIVITAMINS (DAILY MVI) TABLET (FP) PO SCH (10:58)
[2018-07-18] MEDS: PANTOPRAZOLE 40 MG TABLET (FP) PO SCH (10:58)
[2018-07-18] MEDS: APIXABAN 2.5 MG TABLET PO SCH ×2 (10:58→21:36)
[2018-07-18] MEDS: CLOTRIMAZOLE 1% CREAM 15 GM TUBE TP SCH ×2 (10:58→21:35)
--- NOTE | 2018-07-18 11:14 | PN ---
Progress Note (short form) - Note Progress Note: Mildly tachypneic on NC O2. Used NIPPV overnight. Afebrile. No CP. Intake & Output 07/15/18 07/16/18 07/17/18 07/18/18 23:59 23:59 23:59 23:59 Intake Total 900 1435 905 400 Balance 900 1435 905 400 Weight 178 lb 9.6 oz 174 lb 3.2 oz 175 lb 9.6 oz Last Vital Signs Temp Pulse Resp BP Pulse Ox 97.9 F 88 23 149/84 98 07/18/18 10:55 07/18/18 10:55 07/18/18 10:55 07/18/18 10:55 07/18/18 09:00 Active Medications Acetaminophen (Tylenol -) 650 mg PO Q6H PRN PRN Reason: PAIN LEVEL 1-5 Last Admin: 07/17/18 21:20 Dose: 650 mg Apixaban (Eliquis -) 2.5 mg PO BID [facility] Last Admin: 07/18/18 10:58 Dose: 2.5 mg Atorvastatin Calcium (Lipitor -) 10 mg PO HS [facility] Last Admin: 07/17/18 21:20 Dose: 10 mg Budesonide/Formoterol Fumarate (Symbicort 80/4.5mcg -) 2 puff IH BID [facility] Last Admin: 07/18/18 10:57 Dose: 2 puff Clotrimazole (Lotrimin 1% Cream -) 1 applic TP BID [facility] Last Admin: 07/18/18 10:58 Dose: 1 applic Diltiazem HCl (Cardizem Cd -) 120 mg PO DAILY [facility] Last Admin: 07/18/18 10:58 Dose: 120 mg Furosemide (Lasix Injection -) 40 mg IVPUSH DAILY [facility] Last Admin: 07/18/18 10:57 Dose: 40 mg Hydralazine HCl (Apresoline -) 50 mg PO TID [facility] Last Admin: 07/18/18 06:26 Dose: 50 mg Meropenem 500 mg/ Dextrose 100 mls @ 200 mls/hr IVPB BID@0600,1800 [facility] Last Admin: 07/18/18 06:25 Dose: 200 mls/hr Levothyroxine Sodium (Synthroid -) 75 mcg PO DAILY@0700 [facility] Last Admin: 09/19/18 06:25 Dose: 75 mcg Methylprednisolone Sodium Succinate (Solu-Medrol -) 40 mg IVPUSH Q12H [facility] Last Admin: 07/18/18 02:42 Dose: 40 mg Multivitamins/Minerals/Vitamin C (Tab-A-Vit -) 1 tab PO DAILY [facility] Last Admin: 07/18/18 10:58 Dose: 1 tab Pantoprazole Sodium (Protonix -) 40 mg PO DAILY [facility] Last Admin: 07/18/18 10:58 Dose: 40 mg Constitutional: Yes: Mildly tachypneic on NC O2, NAD Eyes: Yes: WNL HENT: Yes: WNL Neck: Yes: WNL Cardiovascular: Yes: Regular Rate and Rhythm, S1, S2 Respiratory: Yes: Basilar Rales/rhonchi Gastrointestinal: Yes: Normal Bowel Sounds, Soft Extremities: Yes: WNL Edema: No Labs: Laboratory Results - last 24 hr 07/18/18 07/18/18 06:30 06:30 WBC 10.7 H RBC 3.52 L Hgb 9.3 L Hct 28.8 L MCV 81.8 MCH 26.6 MCHC 32.5 RDW 20.6 H Plt Count 235 D MPV 7.4 L Absolute Neuts (auto) 10.3 H Neutrophils % 95.5 H Lymphocytes % 1.0 L Monocytes % 3.2 L Eosinophils % 0.1 D Basophils % 0.2 Nucleated RBC % 0 Sodium 141 Potassium 3.6 Chloride 93 L Carbon Dioxide 42 H Anion Gap 6 L BUN 82 H Creatinine 1.5 H Creat Clearance w eGFR 44.59 Random Glucose 197 H Calcium 6.9 L* Assessment/Plan Acute on Chronic Hypoxic Respiratory Failure Pneumonia CHF Acute Kidney Injury Acute COPD Exacerbation Acute on Chronic Diastolic Heart Failure Pulmonary HTN Atrial Flutter with RVR HTN Hyperlipidemia Hypothyroidism - inhaled bronchodilators standing and PRN - ABX per ID - Lasix - NIPPV support - VM O2 as tolerated - AC - Monitor urine output, creatinine - Wean steroids - Question whether further imaging would be useful: to D/W primary Dr Dyer
--- NOTE | 2018-07-18 11:24 | PN ---
Progress Note (short form) - Note Progress Note: clinically unchanged, currently on bipap back on 5 off telemetry Vital Signs Period Temp Pulse Resp BP Sys/[place] Pulse Ox Last 24 Hr 97.5 F-98.4 F 67-88 20-28 129-156/80-91 96-98 cor-rrr lungs crackles right base abd soft,nt ext no edema CBC, BMP 07/18/18 06:30 07/18/18 06:30 Microbiology 07/10/18 19:30 Urine For Antigen Detection Legionella Antigen - Final 07/10/18 19:30 Urine For Antigen Detection Streptococcus pneumoniae Antigen (M - Final 06/24/18 21:15 Blood - Peripheral Venous Blood Culture - Final NO GROWTH AFTER 5 DAYS INCUBATION 06/24/18 21:10 Blood - Peripheral Venous Blood Culture - Final NO GROWTH AFTER 5 DAYS INCUBATION 06/24/18 11:30 Blood - Peripheral Venous Blood Culture - Final NO GROWTH AFTER 5 DAYS INCUBATION 06/24/18 11:30 Blood - Peripheral Venous Blood Culture - Final NO GROWTH AFTER 5 DAYS INCUBATION 06/26/18 14:00 Nares - Mrsa Screen - Left MRSA Screen - Final NO MRSA ISOLATED 06/26/18 14:00 Nares - Mrsa Screen - Right MRSA Screen - Final NO MRSA ISOLATED 06/25/18 07:00 Sputum - Expectorated Gram Stain - Final 06/25/18 07:00 Sputum - Expectorated Sputum Culture - Final NORMAL RESPIRATORY JOANNA 06/24/18 19:50 Urine - Urine Clean Catch Legionella Antigen - Final 06/24/18 19:50 Urine - Urine Clean Catch Streptococcus pneumoniae Antigen ( M - Final 06/24/18 13:51 Urine - Urine Clean Catch Urine Culture - Final NO GROWTH OBTAINED Current Medications Acetaminophen (Tylenol -) 650 mg PO Q6H PRN PRN Reason: PAIN LEVEL 1-5 Last Admin: 07/17/18 21:20 Dose: 650 mg Apixaban (Eliquis -) 2.5 mg PO BID [facility] Last Admin: 07/18/18 10:58 Dose: 2.5 mg Atorvastatin Calcium (Lipitor -) 10 mg PO HS [facility] Last Admin: 07/17/18 21:20 Dose: 10 mg Budesonide/Formoterol Fumarate (Symbicort 80/4.5mcg -) 2 puff IH BID [facility] Last Admin: 09/19/18 10:57 Dose: 2 puff Clotrimazole (Lotrimin 1% Cream -) 1 applic TP BID [facility] Last Admin: 07/18/18 10:58 Dose: 1 applic Diltiazem HCl (Cardizem Cd -) 120 mg PO DAILY [facility] Last Admin: 07/18/18 10:58 Dose: 120 mg Furosemide (Lasix Injection -) 40 mg IVPUSH DAILY [facility] Last Admin: 07/18/18 10:57 Dose: 40 mg Hydralazine HCl (Apresoline -) 50 mg PO TID [facility] Last Admin: 07/18/18 06:26 Dose: 50 mg Meropenem 500 mg/ Dextrose 100 mls @ 200 mls/hr IVPB BID@0600,1800 [facility] Last Admin: 07/18/18 06:25 Dose: 200 mls/hr Levothyroxine Sodium (Synthroid -) 75 mcg PO DAILY@0700 [facility] Last Admin: 07/18/18 06:25 Dose: 75 mcg Methylprednisolone Sodium Succinate (Solu-Medrol -) 30 mg IVPUSH Q12H [facility] Multivitamins/Minerals/Vitamin C (Tab-A-Vit -) 1 tab PO DAILY [facility] Last Admin: 07/18/18 10:58 Dose: 1 tab Pantoprazole Sodium (Protonix -) 40 mg PO DAILY [facility] Last Admin: 07/18/18 10:58 Dose: 40 mg 2 cxray RLL infiltrate improved a/p resp failure with hypoxia-improved, leukocytosis improved day #8 meropenem, WBC now normal- clinically improved consider chest ct still on iv steroids and bipap CHF-still on iv lasix GERD copd exacerbation Penicillin allergy ckd afib prolonged Qtc d/w dr teixeira d/w dr walls Problem List - Problems (1) Respiratory failure with hypoxia Code(s): J96.91 - RESPIRATORY FAILURE, UNSPECIFIED WITH HYPOXIA (2) Pneumonia Code(s): J18.9 - PNEUMONIA, UNSPECIFIED ORGANISM (3) COPD exacerbation Code(s): J44.1 - CHRONIC OBSTRUCTIVE PULMONARY DISEASE W (ACUTE) EXACERBATION (4) CKD (chronic kidney disease) Code(s): N18.9 - CHRONIC KIDNEY DISEASE, UNSPECIFIED Qualifiers: Chronic kidney disease stage: unspecified stage Qualified Code(s): N18.9 - Chronic kidney disease, unspecified (5) Penicillin allergy Code(s): Z88.0 - ALLERGY STATUS TO PENICILLIN
--- NOTE | 2018-07-18 12:37 | PN ---
Progress Note (short form) - Note Progress Note: Progress Note (short form) - Note Progress Note: uses BIPAP as needed feeling better denies pain he states he feels well- wants to go back to [place] Vital Signs - 24 hr 07/17/18 07/17/18 07/17/18 14:13 14:20 18:20 Temperature 98.4 F 97.5 F L Pulse Rate 84 71 Respiratory 28 H 20 Rate Blood Pressure 129/80 154/87 O2 Sat by Pulse 96 Oximetry (%) 07/17/18 07/17/18 07/18/18 21:00 22:00 02:08 Temperature Pulse Rate 67 70 Respiratory 20 20 Rate Blood Pressure 151/91 O2 Sat by Pulse 96 96 Oximetry (%) 07/18/18 07/18/18 07/18/18 06:00 09:00 10:55 Temperature 97.8 F 97.9 F Pulse Rate 79 88 Respiratory 20 20 23 Rate Blood Pressure 156/82 149/84 O2 Sat by Pulse 98 Oximetry (%) Current Medications Generic Name Dose Route Start Last Admin Trade Name Freq PRN Reason Stop Dose Admin Acetaminophen 650 mg 07/14/18 16:32 07/17/18 21:20 Tylenol - PO 650 mg Q6H PRN Administration PAIN LEVEL 1-5 Apixaban 2.5 mg 07/14/18 22:00 07/18/18 10:58 Eliquis - PO 2.5 mg BID JAGDEEP Administration Atorvastatin Calcium 10 mg 07/14/18 22:00 07/17/18 21:20 Lipitor - PO 10 mg HS JAGDEEP Administration Budesonide/Formoterol Fumarate 2 puff 07/14/18 22:00 07/18/18 10:57 Symbicort 80/4.5mcg - IH 2 puff BID JAGDEEP Administration Clotrimazole 1 applic 07/16/18 12:15 07/18/18 10:58 Lotrimin 1% Cream - TP 1 applic BID JAGDEEP Administration Diltiazem HCl 120 mg 07/12/18 10:00 07/18/18 10:58 Cardizem Cd - PO 120 mg DAILY JAGDEEP Administration Furosemide 40 mg 07/18/18 10:00 07/18/18 10:57 Lasix Injection - IVPUSH 40 mg DAILY JAGDEEP Administration Hydralazine HCl 50 mg 07/14/18 22:00 07/18/18 06:26 Apresoline - PO 50 mg TID JAGDEEP Administration Meropenem 500 mg/ Dextrose 100 mls @ 200 mls/hr 07/10/18 18:00 07/18/18 06:25 IVPB 200 mls/hr BID@0600,1800 JAGDEEP Administration Levothyroxine Sodium 75 mcg 07/15/18 07:00 07/18/18 06:25 Synthroid - PO 75 mcg DAILY@0700 JAGDEEP Administration Methylprednisolone Sodium Succinate 30 mg 07/18/18 22:00 Solu-Medrol - IVPUSH BID JAG[facility]EP Multivitamins/Minerals/Vitamin C 1 tab 07/15/18 10:00 07/18/18 10:58 Tab-A-Vit - PO 1 tab DAILY JAGDEEP Administration Pantoprazole Sodium 40 mg 07/15/18 10:00 07/18/18 10:58 Protonix - PO 40 mg DAILY JAGDEEP Administration Laboratory Results - last 24 hr 07/18/18 07/18/18 06:30 06:30 WBC 10.7 H RBC 3.52 L Hgb 9.3 L Hct 28.8 L MCV 81.8 MCH 26.6 MCHC 32.5 RDW 20.6 H Plt Count 235 D MPV 7.4 L Absolute Neuts (auto) 10.3 H Neutrophils % 95.5 H Neutrophils % (Manual) 96.6 H Band Neutrophils % 0.0 Lymphocytes % 1.0 L Lymphocytes % (Manual) 1.7 L Monocytes % 3.2 L Monocytes % (Manual) 0 L D Eosinophils % 0.1 D Eosinophils % (Manual) 0.0 Basophils % 0.2 Basophils % (Manual) 0.0 Myelocytes % (Man) 2 D Promyelocytes % (Man) 0 Blast Cells % (Manual) 0 Nucleated RBC % 0 Metamyelocytes 0 Hypochromia 0 Platelet Estimate Normal Polychromasia 0 Poikilocytosis 2+ Anisocytosis 1+ Microcytosis 1+ Macrocytosis 1+ Sodium 141 Potassium 3.6 Chloride 93 L Carbon Dioxide 42 H Anion Gap 6 L BUN 82 H Creatinine 1.5 H Creat Clearance w eGFR 44.59 Random Glucose 197 H Calcium 6.9 L* Physical Examination Constitutional: Yes: alert and awake Eyes: Yes: Conjunctiva Clear Neck: Yes: Supple, Other (no jvd) Cardiovascular: Yes: Pulse Irregular Respiratory: Yes: decreased breath sounds B/l Gastrointestinal: Yes: Soft/ non tender . bowel sound present, no edema Neurological: Yes: Alert Psychiatric: Yes: Alert Assessment/Plan BIPAP as needed Continue present care Abx chest CT - no contrast iv steroids BID- taper about the same monitor nebulizer treatment Problem List - Problems (1) Respiratory failure with hypoxia Code(s): J96.91 - RESPIRATORY FAILURE, UNSPECIFIED WITH HYPOXIA (2) Chronic diastolic CHF (congestive heart failure) Code(s): I50.32 - CHRONIC DIASTOLIC (CONGESTIVE) HEART FAILURE (3) HTN (hypertension) Code(s): I10 - ESSENTIAL (PRIMARY) HYPERTENSION Qualifiers: Hypertension type: essential hypertension Qualified Code(s): I10 - Essential (primary) hypertension (4) Hypothyroidism Code(s): E03.9 - HYPOTHYROIDISM, UNSPECIFIED Qualifiers: Hypothyroidism type: unspecified Qualified Code(s): E03.9 - Hypothyroidism , unspecified (5) Paroxysmal A-fib Code(s): I48.0 - PAROXYSMAL ATRIAL FIBRILLATION
--- NOTE | 2018-07-18 12:54 | PN ---
Progress Note, Physician History of Present Illness: Patient is a 82 year old male was sent from [facility] for worsening SOB. Patient reports that since many years he has had SOB due to COPD, has been on Oxygen intermittently for 6 yrs but since October,, has been using continuously. Since few days before admission, he had SOB, worsening, associated with wheezing, cough. It was productive, yellowish sputum. Denies chest pain, palpitation, abdominal pain, nausea or vomiting. Bowel/Bladder habit normal. Bowel movement was yesterday. Sleep/Appetite normal. 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 Smoking: Quit in 1955, smoked for 15 yrs, < 1pack/day Alcohol: Occasional quit years ago Drugs: Denies - Current Medication List Current Medications: Active Medications Acetaminophen (Tylenol -) 650 mg PO Q6H PRN PRN Reason: PAIN LEVEL 1-5 Last Admin: 07/17/18 21:20 Dose: 650 mg Apixaban (Eliquis -) 2.5 mg PO BID COUNT [facility]CLUDES [facility] Last Admin: 07/18/18 10:58 Dose: 2.5 mg Atorvastatin Calcium (Lipitor -) 10 mg PO HS COUNT [facility]CLUDES [facility] Last Admin: 07/17/18 21:20 Dose: 10 mg Budesonide/Formoterol Fumarate (Symbicort 80/4.5mcg -) 2 puff IH BID COUNT [facility]CLUDES [facility] Last Admin: 07/18/18 10:57 Dose: 2 puff Clotrimazole (Lotrimin 1% Cream -) 1 applic TP BID COUNT [facility]CLUD[facility] Last Admin: 07/18/18 10:58 Dose: 1 applic Diltiazem HCl (Cardizem Cd -) 120 mg PO DAILY [facility] Last Admin: 07/18/18 10:58 Dose: 120 mg Furosemide (Lasix Injection -) 40 mg IVPUSH DAILY [facility] Last Admin: 07/18/18 10:57 Dose: 40 mg Hydralazine HCl (Apresoline -) 50 mg PO TID [facility] Last Admin: 07/18/18 06:26 Dose: 50 mg Meropenem 500 mg/ Dextrose 100 mls @ 200 mls/hr IVPB BID@0600,1800 [facility] Last Admin: 07/18/18 06:25 Dose: 200 mls/hr Levothyroxine Sodium (Synthroid -) 75 mcg PO DAILY@0700 [facility] Last Admin: 07/18/18 06:25 Dose: 75 mcg Methylprednisolone Sodium Succinate (Solu-Medrol -) 30 mg IVPUSH BID COUNT [facility]CLUD[facility] Multivitamins/Minerals/Vitamin C (Tab-A-Vit -) 1 tab PO DAILY [facility] Last Admin: 07/18/18 10:58 Dose: 1 tab Pantoprazole Sodium (Protonix -) 40 mg PO DAILY [facility] Last Admin: 07/18/18 10:58 Dose: 40 mg - Objective Vital Signs: Vital Signs Temperature 97.9 F 07/18/18 10:55 Pulse Rate 88 07/18/18 10:55 Respiratory Rate 23 07/18/18 10:55 Blood Pressure 149/84 07/18/18 10:55 O2 Sat by Pulse Oximetry (%) 98 07/18/18 09:00 Eyes: Yes: WNL, Conjunctiva Clear, EOM Intact HENT: Yes: WNL, Atraumatic, Normocephalic Neck: Yes: WNL, Supple, Trachea Midline Cardiovascular: Yes: WNL, Pulse Irregular, S1, S2 Respiratory: Yes: WNL, Regular, CTA Bilaterally Gastrointestinal: Yes: WNL, Normal Bowel Sounds Genitourinary: Yes: WNL Musculoskeletal: Yes: WNL Extremities: Yes: WNL Edema: No Integumentary: Yes: WNL Neurological: Yes: WNL, Alert, Oriented ...Motor Strength: WNL Psychiatric: Yes: WNL Labs: CBC, BMP 07/18/18 06:30 07/18/18 06:30 INR, PTT INR 2.08 (0.83-1.09) H 06/24/18 11:30 Assessment/Plan - Problems (1) Atrial flutter Assessment/Plan: Diltiazem CD 120 mg daily for HR control. Continue apixaban for anticoagulation. Code(s): I48.92 - UNSPECIFIED ATRIAL FLUTTER (2) CKD (chronic kidney disease) Code(s): N18.9 - CHRONIC KIDNEY DISEASE, UNSPECIFIED Qualifiers: Chronic kidney disease stage: unspecified stage Qualified Code(s): N18.9 - Chronic kidney disease, unspecified (3) COPD exacerbation Assessment/Plan: hx exposure to 2nd hand smoke. Gives hx of "asthma". On bronchodilators, steroids, O2, Bipap per pulmonary (pt says he has oxygen at home, but not Bipap). Rx for PNA Code(s): J44.1 - CHRONIC OBSTRUCTIVE PULMONARY DISEASE W (ACUTE) EXACERBATION (4) Chronic diastolic CHF (congestive heart failure) Assessment/Plan: On hydralazine and furosemide. F/u BUN/Cr, electrolytes. Code(s): I50.32 - CHRONIC DIASTOLIC (CONGESTIVE) HEART FAILURE (5) GERD (gastroesophageal reflux disease) Code(s): K21.9 - GASTRO-ESOPHAGEAL REFLUX DISEASE WITHOUT ESOPHAGITIS Qualifiers: Esophagitis presence: esophagitis presence not specified Qualified Code(s) : K21.9 - Gastro-esophageal reflux disease without esophagitis (6) HTN (hypertension) Assessment/Plan: On diltiazem, , hydralazine and furosemide. Code(s): I10 - ESSENTIAL (PRIMARY) HYPERTENSION Qualifiers: Hypertension type: essential hypertension Qualified Code(s): I10 - Essential (primary) hypertension (7) Hypothyroidism Assessment/Plan: On sythroid; eevated TSH; normal free T4. Code(s): E03.9 - HYPOTHYROIDISM, UNSPECIFIED Qualifiers: Hypothyroidism type: unspecified Qualified Code(s): E03.9 - Hypothyroidism , unspecified (8) Renal dysfunction Assessment/Plan: Rising BUN/Cr. Avoid dehydration (on furosemide). Code(s): N28.9 - DISORDER OF KIDNEY AND URETER, UNSPECIFIED
--- NOTE | 2018-07-18 14:39 | PN ---
Progress Note (short form) - Note Progress Note: Renal follow up for ANNALISA Pt seen and examined at the bedside reports feeling better on BIPAP Vital Signs Temperature 98.2 F 07/17/18 10:00 Pulse Rate 88 07/17/18 10:00 Respiratory Rate 20 07/17/18 10:00 Blood Pressure 144/82 07/17/18 10:00 O2 Sat by Pulse Oximetry (%) 96 07/17/18 14:13 Intake & Output 07/14/18 07/15/18 07/16/18 07/17/18 23:59 23:59 23:59 23:59 Intake Total 703 001 5627 445 Output Total 500 Balance 424 388 8467 445 Weight 81.012 kg 79.016 kg NAD on BIPAP RRR Dec BS b/l Lung ribera no LE edema CBC, BMP 07/17/18 06:20 07/17/18 06:20 Current Medications Acetaminophen (Tylenol -) 650 mg PO Q6H PRN PRN Reason: PAIN LEVEL 1-5 Last Admin: 07/17/18 14:50 Dose: 650 mg Apixaban (Eliquis -) 2.5 mg PO BID [facility] Last Admin: 07/17/18 10:38 Dose: 2.5 mg Atorvastatin Calcium (Lipitor -) 10 mg PO HS [facility] Last Admin: 07/16/18 22:33 Dose: 10 mg Budesonide/Formoterol Fumarate (Symbicort 80/4.5mcg -) 2 puff IH BID [facility] Last Admin: 07/17/18 10:39 Dose: 2 puff Clotrimazole (Lotrimin 1% Cream -) 1 applic TP BID [facility] Last Admin: 07/17/18 10:38 Dose: 1 applic Diltiazem HCl (Cardizem Cd -) 120 mg PO DAILY [facility] Last Admin: 07/17/18 10:38 Dose: 120 mg Furosemide (Lasix Injection -) 40 mg IVPUSH DAILY [facility] Hydralazine HCl (Apresoline -) 50 mg PO TID [facility] Last Admin: 07/17/18 14:42 Dose: 50 mg Meropenem 500 mg/ Dextrose 100 mls @ 200 mls/hr IVPB BID@0600,1800 [facility] Last Admin: 07/17/18 06:11 Dose: 200 mls/hr Levothyroxine Sodium (Synthroid -) 75 mcg PO DAILY@0700 [facility] Last Admin: 07/17/18 06:11 Dose: 75 mcg Methylprednisolone Sodium Succinate (Solu-Medrol -) 40 mg IVPUSH Q12H [facility] Last Admin: 07/17/18 14:42 Dose: 40 mg Multivitamins/Minerals/Vitamin C (Tab-A-Vit -) 1 tab PO DAILY [facility] Last Admin: 07/17/18 10:38 Dose: 1 tab Pantoprazole Sodium (Protonix -) 40 mg PO DAILY [facility] Last Admin: 07/17/18 10:38 Dose: 40 mg 82 year old AA gentleman with history of CKD, Hyperlipidemia, CHF, COPD, Afib, Hypothyroidism who presented with SOB and Fever and found to have PNA + CHF and developed ANNALISA. #ANNALISA on CKD, now improving with diuretics #CKD #PNA #CHF improving #COPD/Reactive airway disease #Anemia #Gallstones/Gallbladder wall thickening BUN/Cr slightly uptrending, will decrease IV Lasix to once daily Continue BIPAP Trend daily weights, renal function and electrolytes Pravin Veras DO
--- NOTE | 2018-07-18 14:43 | PN ---
Progress Note (short form) - Note Progress Note: Renal follow up for ANNALISA Pt seen and examined at the bedside off BIPAP to eat reports he feels ok not overtly sob but needs NC O2 on BIPAP overnight no cp, making urine w/o difficulty Vital Signs Temperature 97.9 F 07/18/18 10:55 Pulse Rate 88 07/18/18 10:55 Respiratory Rate 23 07/18/18 10:55 Blood Pressure 149/84 07/18/18 10:55 O2 Sat by Pulse Oximetry (%) 98 07/18/18 09:00 Intake & Output 07/15/18 07/16/18 07/17/18 07/18/18 23:59 23:59 23:59 23:59 Intake Total 900 1435 905 400 Balance 900 1435 905 400 Weight 81.012 kg 79.016 kg 79.651 kg NAD on BIPAP RRR Dec BS b/l Lung ribera no LE edema CBC, BMP 07/18/18 06:30 07/18/18 06:30 Current Medications Acetaminophen (Tylenol -) 650 mg PO Q6H PRN PRN Reason: PAIN LEVEL 1-5 Last Admin: 07/17/18 21:20 Dose: 650 mg Apixaban (Eliquis -) 2.5 mg PO BID [facility] Last Admin: 07/18/18 10:58 Dose: 2.5 mg Atorvastatin Calcium (Lipitor -) 10 mg PO HS [facility] Last Admin: 07/17/18 21:20 Dose: 10 mg Budesonide/Formoterol Fumarate (Symbicort 80/4.5mcg -) 2 puff IH BID [facility] Last Admin: 07/18/18 10:57 Dose: 2 puff Clotrimazole (Lotrimin 1% Cream -) 1 applic TP BID [facility] Last Admin: 07/18/18 10:58 Dose: 1 applic Diltiazem HCl (Cardizem Cd -) 120 mg PO DAILY [facility] Last Admin: 07/18/18 10:58 Dose: 120 mg Furosemide (Lasix Injection -) 40 mg IVPUSH DAILY [facility] Last Admin: 07/18/18 10:57 Dose: 40 mg Hydralazine HCl (Apresoline -) 50 mg PO TID [facility] Last Admin: 07/18/18 14:12 Dose: 50 mg Meropenem 500 mg/ Dextrose 100 mls @ 200 mls/hr IVPB BID@0600,1800 [facility] Last Admin: 07/18/18 06:25 Dose: 200 mls/hr Levothyroxine Sodium (Synthroid -) 75 mcg PO DAILY@0700 [facility] Last Admin: 07/18/18 06:25 Dose: 75 mcg Methylprednisolone Sodium Succinate (Solu-Medrol -) 30 mg IVPUSH BID [facility] Multivitamins/Minerals/Vitamin C (Tab-A-Vit -) 1 tab PO DAILY [facility] Last Admin: 07/18/18 10:58 Dose: 1 tab Pantoprazole Sodium (Protonix -) 40 mg PO DAILY [facility] Last Admin: 07/18/18 10:58 Dose: 40 mg 82 year old AA gentleman with history of CKD, Hyperlipidemia, CHF, COPD, Afib, Hypothyroidism who presented with SOB and Fever and found to have PNA + CHF and developed ANNALISA. #ANNALISA on CKD, now improving with diuretics #CKD #PNA #CHF improving #COPD/Reactive airway disease #Anemia #Gallstones/Gallbladder wall thickening Renal function stable, BUN high but due to steroids and not a reflection of uremia Continue IV Lasix once daily Weight went but by 0.6kg from yesterday to today trend weighs and respiratory status Pravin Veras DO
[2018-07-18] MEDS: ACETAMINOPHEN 325 MG TABLET (FP) PO PRN (21:36)
[2018-07-18] MEDS: ATORVASTATIN CA 10 MG TABLET (FP) PO SCH (21:36)
[2018-07-19] MEDS: LEVOTHYROXINE NA 75 MCG TABLET (FP) PO SCH (06:54)
[2018-07-19] MEDS: hydrALAZINE HCL 50 MG TABLET (FP) PO SCH ×3 (06:54→21:42)
[2018-07-19] MEDS: MEROPENEM 500 MG in DEXTROSE 5%-WATER 100 ML IVPB SCH ×2 (06:54→17:23)
[2018-07-19] MEDS: ACETAMINOPHEN 325 MG TABLET (FP) PO PRN ×3 (06:59→20:06)
[2018-07-19 07:57] LABS: BASO % 0.1 % (0-2.0); HEMATOCRIT 28.8 % (35.4-49); HEMOGLOBIN 9.3 GM/dL (11.7-16.9); LYMPH % 1.3 % (8-40); MCH 26.3 pg (25.7-33.7); MCHC 32.3 g/dl (32.0-35.9); MEAN CELL VOLUME 81.4 fl (80-96); MEAN PLT VOLUME 7.5 fl (7.5-11.1); MONO % 4.8 % (3.8-10.2); NEUT % 93.8 % (42.8-82.8); PLATELET COUNT 318 K/MM3 (134-434); RBC 3.54 M/mm3 (4.00-5.60); WHITE BLOOD COUNT 10.9 K/mm3 (4.0-10.0)
[2018-07-19 08:20] LABS: ALBUMIN 2.3 g/dl (3.4-5.0); ALK PHOS 64 U/L (45-117); ANION GAP 9 MMOL/L (8-16); BILIRUBIN,TOTAL 0.4 mg/dL (0.2-1); BLOOD UREA NITROGEN 77 mg/dL (7-18); CALCIUM 7.3 mg/dL (8.5-10.1); CHLORIDE 95 mmol/L (98-107); CO2 40 mmol/L (21-32); CREATININE 1.4 mg/dL (0.55-1.3); GLUCOSE,RANDOM 191 mg/dL (74-106); MAGNESIUM 2.5 mg/dL (1.8-2.4); PHOSPHOROUS 3.7 mg/dL (2.5-4.9); SGOT/AST 12 U/L (15-37); SGPT/ALT 46 U/L (13-61); SODIUM 144 mmol/L (136-145); TOT PROT 5.3 g/dl (6.4-8.2)
[2018-07-19] MEDS ORDERED: PT OWN MED DRAWER 7, Y5N ONE ×2 (09:59→17:21)
[2018-07-19] MEDS: methylPREDNISolone NA SUCC 40 MG/1 ML VIAL IVPUSH SCH ×2 (10:01→21:32)
[2018-07-19] MEDS: FUROSEMIDE 40 MG/4 ML INJECTABLE VIAL IVPUSH SCH (10:01)
[2018-07-19] MEDS: APIXABAN 2.5 MG TABLET PO SCH ×2 (10:01→21:43)
[2018-07-19] MEDS: MULTIVITAMINS (DAILY MVI) TABLET (FP) PO SCH (10:01)
[2018-07-19] MEDS: BUDESONIDE/FORMETEROL FUMARATE 80/4.5 mcg INHALER IH SCH ×2 (10:01→21:43)
[2018-07-19] MEDS: PANTOPRAZOLE 40 MG TABLET (FP) PO SCH (10:01)
[2018-07-19] MEDS: CLOTRIMAZOLE 1% CREAM 15 GM TUBE TP SCH ×2 (10:02→21:43)
--- NOTE | 2018-07-19 11:25 | PN ---
Progress Note, [employer] - Note Progress Note: Selected Entries 07/18/18 07/18/18 07/18/18 10:17 14:47 18:10 Breakfast 75% Lunch 75% Supper 75% 07/19/18 09:14 Breakfast 75% Lunch Supper Laboratory Tests 07/17/18 07/18/18 07/19/18 06:20 06:30 07:00 WBC 11.0 H 10[address] chest noted. Using BIPAP PRN.
[2018-07-19 11:53] LABS: ANISOCYTOSIS 1+; MACROCYTOSIS 1+; PLATELET ESTIMATE NORMAL; TARGET CELLS 1+
--- NOTE | 2018-07-19 12:37 | PN ---
Progress Note, Physician History of Present Illness: pulmonary alert,feeling better,no respiratory distress - Current Medication List Current Medications: Active Medications Acetaminophen (Tylenol -) 650 mg PO Q6H PRN PRN Reason: PAIN LEVEL 1-5 Last Admin: 07/19/18 06:59 Dose: 650 mg Apixaban (Eliquis -) 2.5 mg PO BID [facility] Last Admin: 07/19/18 10:01 Dose: 2.5 mg Atorvastatin Calcium (Lipitor -) 10 mg PO HS [facility] Last Admin: 07/18/18 21:36 Dose: 10 mg Budesonide/Formoterol Fumarate (Symbicort 80/4.5mcg -) 2 puff IH BID [facility] Last Admin: 07/19/18 10:01 Dose: 2 puff Clotrimazole (Lotrimin 1% Cream -) 1 applic TP BID [facility] Last Admin: 07/19/18 10:02 Dose: 1 applic Diltiazem HCl (Cardizem Cd -) 120 mg PO DAILY [facility] Last Admin: 07/19/18 10:01 Dose: 120 mg Furosemide (Lasix Injection -) 40 mg IVPUSH DAILY [facility] Last Admin: 07/19/18 10:01 Dose: 40 mg Hydralazine HCl (Apresoline -) 50 mg PO TID [facility] Last Admin: 07/19/18 06:54 Dose: 50 mg Meropenem 500 mg/ Dextrose 100 mls @ 200 mls/hr IVPB BID@0600,1800 [facility] Last Admin: 07/19/18 06:54 Dose: 200 mls/hr Levothyroxine Sodium (Synthroid -) 75 mcg PO DAILY@0700 [facility] Last Admin: 07/19/18 06:54 Dose: 75 mcg Methylprednisolone Sodium Succinate (Solu-Medrol -) 30 mg IVPUSH BID [facility] Last Admin: 07/19/18 10:01 Dose: 30 mg Multivitamins/Minerals/Vitamin C (Tab-A-Vit -) 1 tab PO DAILY [facility] Last Admin: 07/19/18 10:01 Dose: 1 tab Pantoprazole Sodium (Protonix -) 40 mg PO DAILY [facility] Last Admin: 07/19/18 10:01 Dose: 40 mg - Objective Vital Signs: Vital Signs Temperature 97.6 F 07/19/18 10:00 Pulse Rate 85 07/19/18 10:00 Respiratory Rate 24 07/19/18 10:00 Blood Pressure 129/76 07/19/18 10:00 O2 Sat by Pulse Oximetry (%) 97 07/18/18 21:00 Constitutional: Yes: Well Nourished, Calm Eyes: Yes: WNL HENT: Yes: WNL Neck: Yes: WNL Cardiovascular: Yes: Pulse Irregular, S1, S2 Respiratory: Yes: Rales (darcy crackles/3 up) Gastrointestinal: Yes: Normal Bowel Sounds, Soft Extremities: Yes: WNL Edema: Yes Labs: CBC, BMP 07/19/18 07:00 07/19/18 07:00 INR, PTT INR 2.08 (0.83-1.09) H 06/24/18 11:30 Assessment/Plan ASSESSMENT AND PLAN: Acute on Chronic Hypoxic Respiratory Failure improving Pneumonia CHF Acute Kidney Injury Acute COPD Exacerbation Acute on Chronic Diastolic Heart Failure Pulmonary HTN Atrial Flutter with RVR HTN Hyperlipidemia Hypothyroidism - inhaled bronchodilators standing and PRN - abx as per id - iv lasix - NIPPV - taper FiO2 to keep SpO2>90% - rate control - anticoagulation - monitor urine output, creatinine - steroid taper DR MENDOZA
--- NOTE | 2018-07-19 12:58 | PN ---
Progress Note (short form) - Note Progress Note: Progress Note (short form) - Note Progress Note: uses BIPAP as needed denies pain he states he feels well- wants to go back to [place] on 4 liters NC - O2 sat 97% used BIPAP last night Vital Signs - 24 hr 07/18/18 07/18/18 07/18/18 14:47 18:00 21:00 Temperature 98.3 F 98.4 F Pulse Rate 89 76 Respiratory 24 23 24 Rate Blood Pressure 137/80 142/84 O2 Sat by Pulse 97 Oximetry (%) 07/18/18 07/19/18 07/19/18 22:00 06:00 10:00 Temperature 98.1 F 97.6 F Pulse Rate 90 67 85 Respiratory 24 24 24 Rate Blood Pressure 150/96 136/87 129/76 O2 Sat by Pulse Oximetry (%) Current Medications Generic Name Dose Route Start Last Admin Trade Name Freq PRN Reason Stop Dose Admin Acetaminophen 650 mg 07/14/18 16:32 07/19/18 06:59 Tylenol - PO 650 mg Q6H PRN Administration PAIN LEVEL 1-5 Apixaban 2.5 mg 07/14/18 22:00 07/19/18 10:01 Eliquis - PO 2.5 mg BID JAGDEEP Administration Atorvastatin Calcium 10 mg 07/14/18 22:00 07/18/18 21:36 Lipitor - PO 10 mg HS JAGDEEP Administration Budesonide/Formoterol Fumarate 2 puff 07/14/18 22:00 07/19/18 10:01 Symbicort 80/4.5mcg - IH 2 puff BID JAGDEEP Administration Clotrimazole 1 applic 07/16/18 12:15 07/19/18 10:02 Lotrimin 1% Cream - TP 1 applic BID JAGDEEP Administration Diltiazem HCl 120 mg 07/12/18 10:00 07/19/18 10:01 Cardizem Cd - PO 120 mg DAILY JAGDEEP Administration Furosemide 40 mg 07/19/18 14:00 Lasix Injection - IVPUSH 07/19/18 14:01 ONCE ONE Furosemide 40 mg 07/20/18 06:00 Lasix Injection - IVPUSH BID@0600,1400 JAGDEEP Hydralazine HCl 50 mg 07/14/18 22:00 07/19/18 06:54 Apresoline - PO 50 mg TID JAGDEEP Administration Meropenem 500 mg/ Dextrose 100 mls @ 200 mls/hr 07/10/18 18:00 07/19/18 06:54 IVPB 200 mls/hr BID@0600,1800 JAGDEEP Administration Levothyroxine Sodium 75 mcg 07/15/18 07:00 07/19/18 06:54 Synthroid - PO 75 mcg DAILY@0700 JAGDEEP Administration Methylprednisolone Sodium Succinate 30 mg 07/18/18 22:00 07/19/18 10:01 Solu-Medrol - IVPUSH 30 mg BID JAGDEEP Administration Metolazone 5 mg 07/19/18 13:30 Zaroxolyn - PO 07/19/18 13:31 ONCE ONE Multivitamins/Minerals/Vitamin C 1 tab 07/15/18 10:00 07/19/18 10:01 Tab-A-Vit - PO 1 tab DAILY JAGDEEP Administration Pantoprazole Sodium 40 mg 07/15/18 10:00 07/19/18 10:01 Protonix - PO 40 mg DAILY JAGDEEP Administration Laboratory Results - last 24 hr 07/19/18 07/19/18 07:00 07:00 WBC 10.9 H RBC 3.54 L Hgb 9.3 L Hct 28.8 L MCV 81.4 MCH 26.3 MCHC 32.3 RDW 22.0 H Plt Count 318 D MPV 7.5 Absolute Neuts (auto) 10.2 H Neutrophils % 93.8 H Neutrophils % (Manual) 94.9 H Band Neutrophils % 0.0 Lymphocytes % 1.3 L D Lymphocytes % (Manual) 0.0 L Monocytes % 4.8 Monocytes % (Manual) 2 L D Eosinophils % 0.0 D Eosinophils % (Manual) 0.0 Basophils % 0.1 Basophils % (Manual) 0.0 Myelocytes % (Man) 1 D Promyelocytes % (Man) 0 Nucleated RBC % 0 Metamyelocytes 0 Hypochromia 0 Platelet Estimate Normal Polychromasia 0 Poikilocytosis 0 Basophilic Stippling 1+ Anisocytosis 1+ Microcytosis 1+ Macrocytosis 1+ Target Cells 1+ Schistocytes 1+ Sodium 144 Potassium 4.0 Chloride 95 L Carbon Dioxide 40 H Anion Gap 9 BUN 77 H Creatinine 1.4 H Creat Clearance w eGFR 48.28 Random Glucose 191 H Calcium 7.3 L Phosphorus 3.7 Magnesium 2.5 H Total Bilirubin 0.4 AST 12 L ALT 46 Alkaline Phosphatase 64 Total Protein 5.3 L Albumin 2.3 L Physical Examination Constitutional: Yes: alert and awake Eyes: Yes: Conjunctiva Clear Neck: Yes: Supple, Other (no jvd) Cardiovascular: Yes: Pulse Irregular Respiratory: Yes: decreased breath sounds B/l Gastrointestinal: Yes: Soft/ non tender . bowel sound present, no edema Neurological: Yes: Alert Psychiatric: Yes: Alert Assessment/Plan BIPAP as needed Continue present care Abx chest CT - no contrast noted-- congestion iv steroids-taper monitor nebulizer treatment increase lasix BID - spoke with Renal monitor renal function Problem List - Problems (1) Respiratory failure with hypoxia Code(s): J96.91 - RESPIRATORY FAILURE, UNSPECIFIED WITH HYPOXIA (2) Chronic diastolic CHF (congestive heart failure) Code(s): I50.32 - CHRONIC DIASTOLIC (CONGESTIVE) HEART FAILURE (3) HTN (hypertension) Code(s): I10 - ESSENTIAL (PRIMARY) HYPERTENSION Qualifiers: Hypertension type: essential hypertension Qualified Code(s): I10 - Essential (primary) hypertension (4) Hypothyroidism Code(s): E03.9 - HYPOTHYROIDISM, UNSPECIFIED Qualifiers: Hypothyroidism type: unspecified Qualified Code(s): E03.9 - Hypothyroidism , unspecified (5) Paroxysmal A-fib Code(s): I48.0 - PAROXYSMAL ATRIAL FIBRILLATION
[2018-07-19] MEDS ORDERED: METOLAZONE 5 MG TABLET PO ONE (13:30)
[2018-07-19] MEDS ORDERED: FUROSEMIDE 40 MG/4 ML INJECTABLE VIAL IVPUSH ONE (14:00)
--- NOTE | 2018-07-19 14:22 | PN ---
Progress Note (short form) - Note Progress Note: Renal follow up for ANNALISA Pt seen and examined at the bedside states that he feels better CT of the lungs showed persistent pulmonary vascular congestion no cp, abd pain, N/V/D Vital Signs Temperature 97.6 F 07/19/18 10:00 Pulse Rate 85 07/19/18 10:00 Respiratory Rate 24 07/19/18 10:00 Blood Pressure 129/76 07/19/18 10:00 O2 Sat by Pulse Oximetry (%) 97 07/18/18 21:00 Intake & Output 07/16/18 07/17/18 07/18/18 07/19/18 23:59 23:59 23:59 23:59 Intake Total 8599 752 3267 615 Balance 3089 957 2685 615 Weight 81.012 kg 79.016 kg 79.651 kg 79.832 kg NAD on BIPAP RRR Dec BS b/l Lung ribera no LE edema CBC, BMP 07/19/18 07:00 07/19/18 07:00 Current Medications Acetaminophen (Tylenol -) 650 mg PO Q6H PRN PRN Reason: PAIN LEVEL 1-5 Last Admin: 07/19/18 13:50 Dose: 650 mg Apixaban (Eliquis -) 2.5 mg PO BID [facility] Last Admin: 07/19/18 10:01 Dose: 2.5 mg Atorvastatin Calcium (Lipitor -) 10 mg PO HS [facility] Last Admin: 07/18/18 21:36 Dose: 10 mg Budesonide/Formoterol Fumarate (Symbicort 80/4.5mcg -) 2 puff IH BID [facility] Last Admin: 07/19/18 10:01 Dose: 2 puff Clotrimazole (Lotrimin 1% Cream -) 1 applic TP BID [facility] Last Admin: 07/19/18 10:02 Dose: 1 applic Diltiazem HCl (Cardizem Cd -) 120 mg PO DAILY [facility] Last Admin: 07/19/18 10:01 Dose: 120 mg Furosemide (Lasix Injection -) 40 mg IVPUSH BID@0600,1400 [facility] Hydralazine HCl (Apresoline -) 50 mg PO TID [facility] Last Admin: 07/19/18 13:42 Dose: 50 mg Meropenem 500 mg/ Dextrose 100 mls @ 200 mls/hr IVPB BID@0600,1800 [facility] Last Admin: 07/19/18 06:54 Dose: 200 mls/hr Levothyroxine Sodium (Synthroid -) 75 mcg PO DAILY@0700 [facility] Last Admin: 07/19/18 06:54 Dose: 75 mcg Methylprednisolone Sodium Succinate (Solu-Medrol -) 30 mg IVPUSH BID [facility] Last Admin: 07/19/18 10:01 Dose: 30 mg Multivitamins/Minerals/Vitamin C (Tab-A-Vit -) 1 tab PO DAILY [facility] Last Admin: 07/19/18 10:01 Dose: 1 tab Pantoprazole Sodium (Protonix -) 40 mg PO DAILY [facility] Last Admin: 07/19/18 10:01 Dose: 40 mg 82 year old AA gentleman with history of CKD, Hyperlipidemia, CHF, COPD, Afib, Hypothyroidism who presented with SOB and Fever and found to have PNA + CHF and developed ANNALISA. #ANNALISA on CKD, now improving with diuretics #CKD #PNA #CHF improving #COPD/Reactive airway disease #Anemia #Gallstones/Gallbladder wall thickening Renal function stable, BUN high but due to steroids and not a reflection of uremia given persistent of pulmonary vascular congestion will intensify diuretic regimen Lasix increase to BID, will give metolazone this afternoon as well trend renal function, electrolytes and daily weights Pravin Veras DO
--- NOTE | 2018-07-19 15:06 | PN ---
Progress Note (short form) - Note Progress Note: clinically unchanged, on NC Vital Signs Period Temp Pulse Resp BP Sys/[place] Pulse Ox Last 24 Hr 97.6 F-98.4 F 67-90 23-24 129-150/76-96 97 cor-rrr lungs decreased bs at bases abd soft,nt ext no edema CBC, BMP 07/19/18 07:00 07/19/18 07:00 Microbiology 07/10/18 19:30 Urine For Antigen Detection Legionella Antigen - Final 07/10/18 19:30 Urine For Antigen Detection Streptococcus pneumoniae Antigen (M - Final 06/24/18 21:15 Blood - Peripheral Venous Blood Culture - Final NO GROWTH AFTER 5 DAYS INCUBATION 06/24/18 21:10 Blood - Peripheral Venous Blood Culture - Final NO GROWTH AFTER 5 DAYS INCUBATION 06/24/18 11:30 Blood - Peripheral Venous Blood Culture - Final NO GROWTH AFTER 5 DAYS INCUBATION 06/24/18 11:30 Blood - Peripheral Venous Blood Culture - Final NO GROWTH AFTER 5 DAYS INCUBATION 06/26/18 14:00 Nares - Mrsa Screen - Left MRSA Screen - Final NO MRSA ISOLATED 06/26/18 14:00 Nares - Mrsa Screen - Right MRSA Screen - Final NO MRSA ISOLATED 06/25/18 07:00 Sputum - Expectorated Gram Stain - Final 06/25/18 07:00 Sputum - Expectorated Sputum Culture - Final NORMAL RESPIRATORY JOANNA 06/24/18 19:50 Urine - Urine Clean Catch Legionella Antigen - Final 06/24/18 19:50 Urine - Urine Clean Catch Streptococcus pneumoniae Antigen ( M - Final 06/24/18 13:51 Urine - Urine Clean Catch Urine Culture - Final NO GROWTH OBTAINED chest ct noted- mild chf, bilateral effusions right greater then left Current Medications Acetaminophen (Tylenol -) 650 mg PO Q6H PRN PRN Reason: PAIN LEVEL 1-5 Last Admin: 07/19/18 13:50 Dose: 650 mg Apixaban (Eliquis -) 2.5 mg PO BID [facility] Last Admin: 07/19/18 10:01 Dose: 2.5 mg Atorvastatin Calcium (Lipitor -) 10 mg PO HS [facility] Last Admin: 07/18/18 21:36 Dose: 10 mg Budesonide/Formoterol Fumarate (Symbicort 80/4.5mcg -) 2 puff IH BID [facility] Last Admin: 07/19/18 10:01 Dose: 2 puff Clotrimazole (Lotrimin 1% Cream -) 1 applic TP BID [facility] Last Admin: 07/19/18 10:02 Dose: 1 applic Diltiazem HCl (Cardizem Cd -) 120 mg PO DAILY [facility] Last Admin: 07/19/18 10:01 Dose: 120 mg Furosemide (Lasix Injection -) 40 mg IVPUSH BID@0600,1400 [facility] Hydralazine HCl (Apresoline -) 50 mg PO TID [facility] Last Admin: 07/19/18 13:42 Dose: 50 mg Meropenem 500 mg/ Dextrose 100 mls @ 200 mls/hr IVPB BID@0600,1800 [facility] Last Admin: 07/19/18 06:54 Dose: 200 mls/hr Levothyroxine Sodium (Synthroid -) 75 mcg PO DAILY@0700 [facility] Last Admin: 07/19/18 06:54 Dose: 75 mcg Methylprednisolone Sodium Succinate (Solu-Medrol -) 30 mg IVPUSH BID [facility] Last Admin: 07/19/18 10:01 Dose: 30 mg Multivitamins/Minerals/Vitamin C (Tab-A-Vit -) 1 tab PO DAILY [facility] Last Admin: 07/19/18 10:01 Dose: 1 tab Pantoprazole Sodium (Protonix -) 40 mg PO DAILY [facility] Last Admin: 07/19/18 10:01 Dose: 40 mg a/p resp failure with hypoxia-improved, leukocytosis improved day #9 meropenem, WBC now normal- clinically improved still on iv steroids CHF-still on iv lasix GERD copd exacerbation Penicillin allergy ckd afib prolonged Qtc d/c meropenem in am Problem List - Problems (1) Respiratory failure with hypoxia Code(s): J96.91 - RESPIRATORY FAILURE, UNSPECIFIED WITH HYPOXIA (2) Pneumonia Code(s): J18.9 - PNEUMONIA, UNSPECIFIED ORGANISM (3) COPD exacerbation Code(s): J44.1 - CHRONIC OBSTRUCTIVE PULMONARY DISEASE W (ACUTE) EXACERBATION (4) CKD (chronic kidney disease) Code(s): N18.9 - CHRONIC KIDNEY DISEASE, UNSPECIFIED Qualifiers: Chronic kidney disease stage: unspecified stage Qualified Code(s): N18.9 - Chronic kidney disease, unspecified (5) Penicillin allergy Code(s): Z88.0 - ALLERGY STATUS TO PENICILLIN
[2018-07-19] MEDS: ATORVASTATIN CA 10 MG TABLET (FP) PO SCH (21:43)
[2018-07-20] MEDS: MEROPENEM 500 MG in DEXTROSE 5%-WATER 100 ML IVPB SCH (06:31)
[2018-07-20] MEDS: LEVOTHYROXINE NA 75 MCG TABLET (FP) PO SCH (06:31)
[2018-07-20] MEDS: hydrALAZINE HCL 50 MG TABLET (FP) PO SCH ×3 (06:31→21:22)
[2018-07-20] MEDS: FUROSEMIDE 40 MG/4 ML INJECTABLE VIAL IVPUSH SCH ×2 (06:31→17:11)
[2018-07-20 07:48] LABS: ALBUMIN 2.5 g/dl (3.4-5.0); ALK PHOS 69 U/L (45-117); ANION GAP 12 MMOL/L (8-16); BILIRUBIN,TOTAL 0.4 mg/dL (0.2-1); BLOOD UREA NITROGEN 81 mg/dL (7-18); CALCIUM 7.7 mg/dL (8.5-10.1); CHLORIDE 89 mmol/L (98-107); CO2 41 mmol/L (21-32); CREATININE 1.5 mg/dL (0.55-1.3); GLUCOSE,RANDOM 210 mg/dL (74-106); MAGNESIUM 2.6 mg/dL (1.8-2.4); POTASSIUM 3.6 mmol/L (3.5-5.1); SGOT/AST 11 U/L (15-37); SGPT/ALT 47 U/L (13-61); SODIUM 142 mmol/L (136-145); TOT PROT 5.8 g/dl (6.4-8.2)
--- NOTE | 2018-07-20 11:14 | PN ---
Progress Note (short form) - Note Progress Note: Renal follow up for ANNALISA Pt seen and examined at the bedside was sleeping on NC O2 w/o distress reports he feels better no cp, abd pain, N/V/D made a lot of urine yesterday Vital Signs Temperature 98.0 F 07/20/18 06:00 Pulse Rate 73 07/20/18 06:00 Respiratory Rate 22 07/20/18 06:00 Blood Pressure 153/74 07/20/18 06:00 O2 Sat by Pulse Oximetry (%) 97 07/20/18 09:29 Intake & Output 07/17/18 07/18/18 07/19/18 07/20/18 23:59 23:59 23:59 23:59 Intake Total 905 2355 1770 100 Balance 905 2355 1770 100 Weight 79.016 kg 79.651 kg 79.832 kg 78.199 kg NAD on BIPAP RRR Dec BS b/l Lung ribera no LE edema CBC, BMP 07/19/18 07:00 07/20/18 06:30 Current Medications Acetaminophen (Tylenol -) 650 mg PO Q6H PRN PRN Reason: PAIN LEVEL 1-5 Last Admin: 07/19/18 20:06 Dose: 650 mg Apixaban (Eliquis -) 2.5 mg PO BID [facility] Last Admin: 07/19/18 21:43 Dose: 2.5 mg Atorvastatin Calcium (Lipitor -) 10 mg PO HS [facility] Last Admin: 07/19/18 21:43 Dose: 10 mg Budesonide/Formoterol Fumarate (Symbicort 80/4.5mcg -) 2 puff IH BID [facility] Last Admin: 07/19/18 21:43 Dose: 2 puff Clotrimazole (Lotrimin 1% Cream -) 1 applic TP BID [facility] Last Admin: 07/19/18 21:43 Dose: 1 applic Diltiazem HCl (Cardizem Cd -) 120 mg PO DAILY [facility] Last Admin: 07/19/18 10:01 Dose: 120 mg Furosemide (Lasix Injection -) 40 mg IVPUSH BID@0600,1400 [facility] Last Admin: 07/20/18 06:31 Dose: 40 mg Hydralazine HCl (Apresoline -) 50 mg PO TID [facility] Last Admin: 07/20/18 06:31 Dose: 50 mg Meropenem 500 mg/ Dextrose 100 mls @ 200 mls/hr IVPB BID@0600,1800 [facility] Last Admin: 07/20/18 06:31 Dose: 200 mls/hr Levothyroxine Sodium (Synthroid -) 75 mcg PO DAILY@0700 [facility] Last Admin: 07/20/18 06:31 Dose: 75 mcg Methylprednisolone Sodium Succinate (Solu-Medrol -) 30 mg IVPUSH BID [facility] Last Admin: 07/19/18 21:32 Dose: 30 mg Multivitamins/Minerals/Vitamin C (Tab-A-Vit -) 1 tab PO DAILY [facility] Last Admin: 07/19/18 10:01 Dose: 1 tab Pantoprazole Sodium (Protonix -) 40 mg PO DAILY [facility] Last Admin: 07/19/18 10:01 Dose: 40 mg 82 year old AA gentleman with history of CKD, Hyperlipidemia, CHF, COPD, Afib, Hypothyroidism who presented with SOB and Fever and found to have PNA + CHF and developed ANNALISA. #ANNALISA on CKD, now improving with diuretics #CKD #PNA #CHF improving #COPD/Reactive airway disease #Anemia #Gallstones/Gallbladder wall thickening Renal function stable was able to achieve significant fluid weight loss with diuretics yesterday will continue IV Lasix until pt is ready for discharge will give additional PO metoalzone this afternoon would trend renal function and electrolytes when ready for discharge be be transitioned to Oral Torsemide 80mg Daily will need close monitoring of renal function as outpatient as well. Pravin Veras DO
[2018-07-20] MEDS: PANTOPRAZOLE 40 MG TABLET (FP) PO SCH (11:25)
[2018-07-20] MEDS: methylPREDNISolone NA SUCC 40 MG/1 ML VIAL IVPUSH SCH ×2 (11:25→21:22)
[2018-07-20] MEDS: CLOTRIMAZOLE 1% CREAM 15 GM TUBE TP SCH ×2 (11:26→21:23)
[2018-07-20] MEDS: APIXABAN 2.5 MG TABLET PO SCH ×2 (11:26→21:22)
[2018-07-20] MEDS: MULTIVITAMINS (DAILY MVI) TABLET (FP) PO SCH (11:26)
[2018-07-20] MEDS: BUDESONIDE/FORMETEROL FUMARATE 80/4.5 mcg INHALER IH SCH ×2 (11:27→21:23)
--- NOTE | 2018-07-20 11:28 | PN ---
Progress Note (short form) - Note Progress Note: pt seen/ examined chart reviewed feels better dysnea better afebrile Vital Signs Temp 98.0 F 07/20/18 06:00 Pulse 73 07/20/18 06:00 Resp 22 07/20/18 06:00 BP 153/74 07/20/18 06:00 Pulse Ox 97 07/20/18 09:29 Intake & Output 07/19/18 07/19/18 07/20/18 11:59 23:59 11:59 Intake Total 615 1155 100 Balance 615 1155 100 Weight 176 lb 172 lb 6.4 oz Intake: IVPB 100 100 100 Oral 515 1055 Other: Voiding Method Incontinent Incontinent # Unmeasured Voids Void 4 2 4 Bowel Movement Yes Yes No # Bowel Movements 1 1 Weight Measurement Method Patient Lift Scale Patient Lift Scale Active Medications Acetaminophen (Tylenol -) 650 mg PO Q6H PRN PRN Reason: PAIN LEVEL 1-5 Last Admin: 07/19/18 20:06 Dose: 650 mg Apixaban (Eliquis -) 2.5 mg PO BID [facility] Last Admin: 07/20/18 11:26 Dose: 2.5 mg Atorvastatin Calcium (Lipitor -) 10 mg PO HS [facility] Last Admin: 07/19/18 21:43 Dose: 10 mg Budesonide/Formoterol Fumarate (Symbicort 80/4.5mcg -) 2 puff IH BID [facility] Last Admin: 07/20/18 11:27 Dose: 2 puff Clotrimazole (Lotrimin 1% Cream -) 1 applic TP BID [facility] Last Admin: 07/20/18 11:26 Dose: 1 applic Diltiazem HCl (Cardizem Cd -) 120 mg PO DAILY [facility] Last Admin: 07/20/18 11:26 Dose: 120 mg Furosemide (Lasix Injection -) 40 mg IVPUSH BID@0600,1400 [facility] Last Admin: 07/20/18 06:31 Dose: 40 mg Hydralazine HCl (Apresoline -) 50 mg PO TID [facility] Last Admin: 07/20/18 06:31 Dose: 50 mg Meropenem 500 mg/ Dextrose 100 mls @ 200 mls/hr IVPB BID@0600,1800 [facility] Last Admin: 07/20/18 06:31 Dose: 200 mls/hr Levothyroxine Sodium (Synthroid -) 75 mcg PO DAILY@0700 [facility] Last Admin: 07/20/18 06:31 Dose: 75 mcg Methylprednisolone Sodium Succinate (Solu-Medrol -) 30 mg IVPUSH BID [facility] Last Admin: 07/20/18 11:25 Dose: 30 mg Metolazone (Zaroxolyn -) 5 mg PO ONCE ONE Stop: 07/20/18 13:31 Multivitamins/Minerals/Vitamin C (Tab-A-Vit -) 1 tab PO DAILY [facility] Last Admin: 07/20/18 11:26 Dose: 1 tab Pantoprazole Sodium (Protonix -) 40 mg PO DAILY [facility] Last Admin: 07/20/18 11:25 Dose: 40 mg CBC, BMP 07/19/18 07:00 07/20/18 06:30 Physical Examination Constitutional: Yes: alert and awake. comfortable Eyes: Yes: Conjunctiva Clear Neck: Yes: Supple, Other (no jvd) Cardiovascular: Yes: Pulse Irregular Respiratory: Yes: Bibasilar rales Gastrointestinal: Yes: Soft/ non tender . bowel sound present, no edema Neurological: Yes: Alert Psychiatric: Yes: Alert Assessment/Plan BIPAP as needed Continue present care Abx--d/c today chest CT -reviewed iv steroids-taper monitor nebulizer treatment i/v lasix BID - monitor renal function daily oob- chair will follow Problem List - Problems (1) Respiratory failure with hypoxia Code(s): J96.91 - RESPIRATORY FAILURE, UNSPECIFIED WITH HYPOXIA (2) Chronic diastolic CHF (congestive heart failure) Code(s): I50.32 - CHRONIC DIASTOLIC (CONGESTIVE) HEART FAILURE (3) HTN (hypertension) Code(s): I10 - ESSENTIAL (PRIMARY) HYPERTENSION Qualifiers: Hypertension type: essential hypertension Qualified Code(s): I10 - Essential (primary) hypertension (4) Hypothyroidism Code(s): E03.9 - HYPOTHYROIDISM, UNSPECIFIED Qualifiers: Hypothyroidism type: unspecified Qualified Code(s): E03.9 - Hypothyroidism , unspecified (5) Paroxysmal A-fib Code(s): I48.0 - PAROXYSMAL ATRIAL FIBRILLATION
--- NOTE | 2018-07-20 12:43 | PN ---
Progress Note, Physician History of Present Illness: pulmonary alert,feeling better,dyspnea improving,sitting up in bed - Current Medication List Current Medications: Active Medications Acetaminophen (Tylenol -) 650 mg PO Q6H PRN PRN Reason: PAIN LEVEL 1-5 Last Admin: 07/19/18 20:06 Dose: 650 mg Apixaban (Eliquis -) 2.5 mg PO BID [facility] Last Admin: 07/20/18 11:26 Dose: 2.5 mg Atorvastatin Calcium (Lipitor -) 10 mg PO HS [facility] Last Admin: 07/19/18 21:43 Dose: 10 mg Budesonide/Formoterol Fumarate (Symbicort 80/4.5mcg -) 2 puff IH BID [facility] Last Admin: 07/20/18 11:27 Dose: 2 puff Clotrimazole (Lotrimin 1% Cream -) 1 applic TP BID [facility] Last Admin: 07/20/18 11:26 Dose: 1 applic Diltiazem HCl (Cardizem Cd -) 120 mg PO DAILY [facility] Last Admin: 07/20/18 11:26 Dose: 120 mg Furosemide (Lasix Injection -) 40 mg IVPUSH BID@0600,1400 [facility] Last Admin: 07/20/18 06:31 Dose: 40 mg Hydralazine HCl (Apresoline -) 50 mg PO TID [facility] Last Admin: 07/20/18 06:31 Dose: 50 mg Meropenem 500 mg/ Dextrose 100 mls @ 200 mls/hr IVPB BID@0600,1800 [facility] Last Admin: 07/20/18 06:31 Dose: 200 mls/hr Levothyroxine Sodium (Synthroid -) 75 mcg PO DAILY@0700 [facility] Last Admin: 07/20/18 06:31 Dose: 75 mcg Methylprednisolone Sodium Succinate (Solu-Medrol -) 30 mg IVPUSH BID [facility] Last Admin: 07/20/18 11:25 Dose: 30 mg Metolazone (Zaroxolyn -) 5 mg PO ONCE ONE Stop: 07/20/18 13:31 Multivitamins/Minerals/Vitamin C (Tab-A-Vit -) 1 tab PO DAILY [facility] Last Admin: 07/20/18 11:26 Dose: 1 tab Pantoprazole Sodium (Protonix -) 40 mg PO DAILY [facility] Last Admin: 07/20/18 11:25 Dose: 40 mg - Objective Vital Signs: Vital Signs Temperature 98.0 F 07/20/18 06:00 Pulse Rate 73 07/20/18 06:00 Respiratory Rate 22 07/20/18 06:00 Blood Pressure 153/74 07/20/18 06:00 O2 Sat by Pulse Oximetry (%) 97 07/20/18 09:29 Constitutional: Yes: Well Nourished, Calm Eyes: Yes: WNL HENT: Yes: WNL Neck: Yes: WNL Cardiovascular: Yes: Regular Rate and Rhythm, S1, S2 Respiratory: Yes: Rales (bibasailar rales) Gastrointestinal: Yes: Normal Bowel Sounds, Soft Extremities: Yes: WNL Edema: Yes Labs: CBC, BMP 07/19/18 07:00 07/20/18 06:30 INR, PTT INR 2.08 (0.83-1.09) H 06/24/18 11:30 Assessment/Plan ASSESSMENT AND PLAN: Acute on Chronic Hypoxic Respiratory Failure improving Pneumonia CHF Acute Kidney Injury Acute COPD Exacerbation Acute on Chronic Diastolic Heart Failure Pulmonary HTN Atrial Flutter with RVR HTN Hyperlipidemia Hypothyroidism - inhaled bronchodilators standing and PRN - abx as per id - iv lasix - NIPPV - taper FiO2 to keep SpO2>90% - rate control - anticoagulation - monitor urine output, creatinine - steroid taper DR MENDOZA
[2018-07-20] MEDS ORDERED: METOLAZONE 5 MG TABLET PO ONE (13:30)
[2018-07-20] MEDS: ACETAMINOPHEN 325 MG TABLET (FP) PO PRN (17:11)
[2018-07-20] MEDS: ATORVASTATIN CA 10 MG TABLET (FP) PO SCH (21:22)
--- NOTE | 2018-07-21 05:11 | PN ---
Progress Note, Physician - Current Medication List Current Medications: Active Medications Acetaminophen (Tylenol -) 650 mg PO Q6H PRN PRN Reason: PAIN LEVEL 1-5 Last Admin: 07/20/18 17:11 Dose: 650 mg Apixaban (Eliquis -) 2.5 mg PO BID [facility] Last Admin: 07/20/18 21:22 Dose: 2.5 mg Atorvastatin Calcium (Lipitor -) 10 mg PO HS [facility] Last Admin: 07/20/18 21:22 Dose: 10 mg Budesonide/Formoterol Fumarate (Symbicort 80/4.5mcg -) 2 puff IH BID [facility] Last Admin: 07/20/18 21:23 Dose: 2 puff Clotrimazole (Lotrimin 1% Cream -) 1 applic TP BID [facility] Last Admin: 07/20/18 21:23 Dose: 1 applic Diltiazem HCl (Cardizem Cd -) 120 mg PO DAILY [facility] Last Admin: 07/20/18 11:26 Dose: 120 mg Furosemide (Lasix Injection -) 40 mg IVPUSH BID@0600,1400 [facility] Last Admin: 07/20/18 17:11 Dose: 40 mg Hydralazine HCl (Apresoline -) 50 mg PO TID [facility] Last Admin: 07/20/18 21:22 Dose: 50 mg Levothyroxine Sodium (Synthroid -) 75 mcg PO DAILY@0700 [facility] Last Admin: 07/20/18 06:31 Dose: 75 mcg Methylprednisolone Sodium Succinate (Solu-Medrol -) 30 mg IVPUSH BID [facility] Last Admin: 07/20/18 21:22 Dose: 30 mg Multivitamins/Minerals/Vitamin C (Tab-A-Vit -) 1 tab PO DAILY [facility] Last Admin: 07/20/18 11:26 Dose: 1 tab Pantoprazole Sodium (Protonix -) 40 mg PO DAILY [facility] Last Admin: 07/20/18 11:25 Dose: 40 mg - Objective Vital Signs: Vital Signs Temperature 98.1 F 07/21/18 02:00 Pulse Rate 87 07/21/18 02:00 Respiratory Rate 20 07/21/18 02:00 Blood Pressure 156/97 07/21/18 02:00 O2 Sat by Pulse Oximetry (%) 95 07/20/18 21:00 Constitutional: Yes: Calm Eyes: Yes: WNL Labs: CBC, BMP 07/19/18 07:00 07/20/18 06:30 INR, PTT INR 2.08 (0.83-1.09) H 06/24/18 11:30 Problem List - Problems (1) Atrial flutter Assessment/Plan: Diltiazem CD 120 mg daily for HR control. Continue apixaban for anticoagulation. Code(s): I48.92 - UNSPECIFIED ATRIAL FLUTTER (2) CKD (chronic kidney disease) Code(s): N18.9 - CHRONIC KIDNEY DISEASE, UNSPECIFIED Qualifiers: Chronic kidney disease stage: unspecified stage Qualified Code(s): N18.9 - Chronic kidney disease, unspecified (3) COPD exacerbation Assessment/Plan: hx exposure to 2nd hand smoke. Gives hx of "asthma". On bronchodilators, steroids, O2, Bipap per pulmonary (pt says he has oxygen at home, but not Bipap). On Rx for PNA. Code(s): J44.1 - CHRONIC OBSTRUCTIVE PULMONARY DISEASE W (ACUTE) EXACERBATION (4) Chronic diastolic CHF (congestive heart failure) Assessment/Plan: On hydralazine, diltiazem, and furosemide. F/u BUN/Cr, electrolytes. Is and Os; daily weights. Code(s): I50.32 - CHRONIC DIASTOLIC (CONGESTIVE) HEART FAILURE (5) GERD (gastroesophageal reflux disease) Code(s): K21.9 - GASTRO-ESOPHAGEAL REFLUX DISEASE WITHOUT ESOPHAGITIS Qualifiers: Esophagitis presence: esophagitis presence not specified Qualified Code(s) : K21.9 - Gastro-esophageal reflux disease without esophagitis (6) HTN (hypertension) Assessment/Plan: On diltiazem, , hydralazine and furosemide. Code(s): I10 - ESSENTIAL (PRIMARY) HYPERTENSION Qualifiers: Hypertension type: essential hypertension Qualified Code(s): I10 - Essential (primary) hypertension (7) Hypothyroidism Assessment/Plan: On sythroid; elevated TSH; normal free T4. Code(s): E03.9 - HYPOTHYROIDISM, UNSPECIFIED Qualifiers: Hypothyroidism type: unspecified Qualified Code(s): E03.9 - Hypothyroidism , unspecified (8) Renal dysfunction Assessment/Plan: Rising BUN/Cr. Avoid dehydration (on furosemide). Code(s): N28.9 - DISORDER OF KIDNEY AND URETER, UNSPECIFIED (9) Pulmonary HTN Assessment/Plan: RVSP likely moderately severe (noted significant TR on ECHO, which also showed normal LVEF; moderately dilated RA, mildly dilated RV, borderline reduced RVEF, mild LAE, mild MR, moderate NV) Code(s): I27.20 - PULMONARY HYPERTENSION, UNSPECIFIED
--- NOTE | 2018-07-21 05:23 | PN ---
Progress Note, Physician Chief Complaint: Pt A&Ox3;denies chest pain, fitful sleep; remains dyspneic at rest. History of Present Illness: The patient is an 82M w/ a PMH of COPD, a-fib (Eliquis), CKD, HLD, HTN, diastolic CHF with reduced RVEF, moderately severe pulmonary HTN, hypothyroidism who presents from his [facility]) for worsening shortness of breath, fever (Tm 101.6), and hypoxia despite 3L NC. On arrival, the patient endorses worsening dyspnea and productive cough. He also reports chronic abdominal pain 2/2 hiatal hernia. Patient denies MCGRATH, acute vision change, chest pain, BLE swelling, or changes in sensation. - Current Medication List Current Medications: Active Medications Acetaminophen (Tylenol -) 650 mg PO Q6H PRN PRN Reason: PAIN LEVEL 1-5 Last Admin: 07/20/18 17:11 Dose: 650 mg Apixaban (Eliquis -) 2.5 mg PO BID [facility] Last Admin: 07/20/18 21:22 Dose: 2.5 mg Atorvastatin Calcium (Lipitor -) 10 mg PO HS [facility] Last Admin: 07/20/18 21:22 Dose: 10 mg Budesonide/Formoterol Fumarate (Symbicort 80/4.5mcg -) 2 puff IH BID [facility] Last Admin: 07/20/18 21:23 Dose: 2 puff Clotrimazole (Lotrimin 1% Cream -) 1 applic TP BID [facility] Last Admin: 07/20/18 21:23 Dose: 1 applic Diltiazem HCl (Cardizem Cd -) 120 mg PO DAILY [facility] Last Admin: 07/20/18 11:26 Dose: 120 mg Furosemide (Lasix Injection -) 40 mg IVPUSH BID@0600,1400 [facility] Last Admin: 07/20/18 17:11 Dose: 40 mg Hydralazine HCl (Apresoline -) 50 mg PO TID [facility] Last Admin: 07/20/18 21:22 Dose: 50 mg Levothyroxine Sodium (Synthroid -) 75 mcg PO DAILY@0700 [facility] Last Admin: 07/20/18 06:31 Dose: 75 mcg Methylprednisolone Sodium Succinate (Solu-Medrol -) 30 mg IVPUSH BID [facility] Last Admin: 07/20/18 21:22 Dose: 30 mg Multivitamins/Minerals/Vitamin C (Tab-A-Vit -) 1 tab PO DAILY [facility] Last Admin: 07/20/18 11:26 Dose: 1 tab Pantoprazole Sodium (Protonix -) 40 mg PO DAILY [facility] Last Admin: 07/20/18 11:25 Dose: 40 mg - Objective Vital Signs: Vital Signs Temperature 98.1 F 07/21/18 02:00 Pulse Rate 87 07/21/18 02:00 Respiratory Rate 20 07/21/18 02:00 Blood Pressure 156/97 07/21/18 02:00 O2 Sat by Pulse Oximetry (%) 95 07/20/18 21:00 Constitutional: Yes: Calm Eyes: Yes: WNL HENT: Yes: WNL Neck: Yes: WNL Cardiovascular: Yes: S1 (varies in intensity), S2 (split) Respiratory: Yes: Diminished, Rales, Rhonchi, SOB Gastrointestinal: Yes: Soft ...Rectal Exam: Yes: Deferred Genitourinary: No: Anuria Musculoskeletal: Yes: Muscle Weakness Extremities: Yes: Cool Edema: No Peripheral Pulses WNL: Yes Integumentary: Yes: WNL Neurological: Yes: Alert, Oriented, Weakness Psychiatric: Yes: WNL Labs: CBC, BMP 07/19/18 07:00 07/20/18 06:30 INR, PTT INR 2.08 (0.83-1.09) H 06/24/18 11:30 Abnormal Lab Results 07/20/18 06:30 Chloride 89 L Carbon Dioxide 41 H BUN 81 H Creatinine 1.5 H Random Glucose 210 H Calcium 7.7 L Magnesium 2.6 H AST 11 L Total Protein 5.8 L Albumin 2.5 L - ....Imaging Cat Scan: Image Reviewed Problem List - Problems (1) Atrial flutter Assessment/Plan: Diltiazem CD 120 mg daily for HR control. Continue apixaban for anticoagulation. Code(s): I48.92 - UNSPECIFIED ATRIAL FLUTTER (2) CKD (chronic kidney disease) Code(s): N18.9 - CHRONIC KIDNEY DISEASE, UNSPECIFIED Qualifiers: Chronic kidney disease stage: unspecified stage Qualified Code(s): N18.9 - Chronic kidney disease, unspecified (3) COPD exacerbation Assessment/Plan: hx exposure to 2nd hand smoke. Gives hx of "asthma". On bronchodilators, steroids, O2, Bipap per pulmonary (pt says he has oxygen at home, but not Bipap). For discontinuation of antibiotics. Code(s): J44.1 - CHRONIC OBSTRUCTIVE PULMONARY DISEASE W (ACUTE) EXACERBATION (4) Chronic diastolic CHF (congestive heart failure) Assessment/Plan: On hydralazine, diltiazem, and furosemide. F/u BUN/Cr, electrolytes. Is and Os; daily weights. Code(s): I50.32 - CHRONIC DIASTOLIC (CONGESTIVE) HEART FAILURE (5) GERD (gastroesophageal reflux disease) Code(s): K21.9 - GASTRO-ESOPHAGEAL REFLUX DISEASE WITHOUT ESOPHAGITIS Qualifiers: Esophagitis presence: esophagitis presence not specified Qualified Code(s) : K21.9 - Gastro-esophageal reflux disease without esophagitis (6) HTN (hypertension) Assessment/Plan: On diltiazem, , hydralazine and furosemide. May increase doses of both diltiazem and hydralazine if required for BP control. Code(s): I10 - ESSENTIAL (PRIMARY) HYPERTENSION Qualifiers: Hypertension type: essential hypertension Qualified Code(s): I10 - Essential (primary) hypertension (7) Hypothyroidism Assessment/Plan: On sythroid; elevated TSH; normal free T4. Code(s): E03.9 - HYPOTHYROIDISM, UNSPECIFIED Qualifiers: Hypothyroidism type: unspecified Qualified Code(s): E03.9 - Hypothyroidism , unspecified (8) Renal dysfunction Assessment/Plan: On furosemide and metalazone, per neuro psych sales specialist. Good urinary output. Code(s): N28.9 - DISORDER OF KIDNEY AND URETER, UNSPECIFIED (9) Pulmonary HTN Assessment/Plan: RVSP likely moderately severe (noted significant TR on ECHO, which also showed normal LVEF; moderately dilated RA, mildly dilated RV, borderline reduced RVEF, mild LAE, mild MR, moderate NM) Code(s): I27.20 - PULMONARY HYPERTENSION, UNSPECIFIED
[2018-07-21] MEDS: hydrALAZINE HCL 50 MG TABLET (FP) PO SCH ×3 (06:30→21:26)
[2018-07-21] MEDS: FUROSEMIDE 40 MG/4 ML INJECTABLE VIAL IVPUSH SCH ×2 (06:30→14:54)
[2018-07-21] MEDS: LEVOTHYROXINE NA 75 MCG TABLET (FP) PO SCH (06:30)
[2018-07-21 08:03] LABS: BLOOD UREA NITROGEN 86 mg/dL (7-18); CALCIUM 7.9 mg/dL (8.5-10.1); CHLORIDE 86 mmol/L (98-107); CREATININE 1.6 mg/dL (0.55-1.3); GLUCOSE,RANDOM 209 mg/dL (74-106); MAGNESIUM 2.4 mg/dL (1.8-2.4); PHOSPHOROUS 4.2 mg/dL (2.5-4.9); POTASSIUM 3.5 mmol/L (3.5-5.1); SODIUM 138 mmol/L (136-145)
[2018-07-21 08:16] LABS: ANION GAP 3 MMOL/L (8-16)
[2018-07-21 08:17] LABS: CO2 49 mmol/L (21-32)
[2018-07-21] MEDS: APIXABAN 2.5 MG TABLET PO SCH ×2 (10:54→21:26)
[2018-07-21] MEDS: MULTIVITAMINS (DAILY MVI) TABLET (FP) PO SCH (10:55)
[2018-07-21] MEDS: methylPREDNISolone NA SUCC 40 MG/1 ML VIAL IVPUSH SCH ×2 (10:55→21:26)
[2018-07-21] MEDS: PANTOPRAZOLE 40 MG TABLET (FP) PO SCH (10:55)
[2018-07-21] MEDS ORDERED: PT OWN MED DRAWER 7, Y5N ONE (10:57)
[2018-07-21] MEDS: CLOTRIMAZOLE 1% CREAM 15 GM TUBE TP SCH ×2 (10:58→21:26)
[2018-07-21] MEDS: BUDESONIDE/FORMETEROL FUMARATE 80/4.5 mcg INHALER IH SCH ×2 (10:58→21:26)
--- NOTE | 2018-07-21 11:26 | PN ---
Progress Note (short form) - Note Progress Note: covering dr kovacs problems PMHX- CKD, Hyperlipidemia, CHF, COPD, Afib, Hypothyroidism anemia, gallstones currently PNA + CHF and ANNALISA. Current Medications Acetaminophen (Tylenol -) 650 mg PO Q6H PRN PRN Reason: PAIN LEVEL 1-5 Last Admin: 07/20/18 17:11 Dose: 650 mg Apixaban (Eliquis -) 2.5 mg PO BID [facility] Last Admin: 07/21/18 10:54 Dose: 2.5 mg Atorvastatin Calcium (Lipitor -) 10 mg PO HS [facility] Last Admin: 07/20/18 21:22 Dose: 10 mg Budesonide/Formoterol Fumarate (Symbicort 80/4.5mcg -) 2 puff IH BID [facility] Last Admin: 07/21/18 10:58 Dose: 2 puff Clotrimazole (Lotrimin 1% Cream -) 1 applic TP BID [facility] Last Admin: 07/21/18 10:58 Dose: 1 applic Diltiazem HCl (Cardizem Cd -) 120 mg PO DAILY [facility] Last Admin: 07/21/18 10:54 Dose: 120 mg Furosemide (Lasix Injection -) 40 mg IVPUSH BID@0600,1400 [facility] Last Admin: 07/21/18 06:30 Dose: 40 mg Hydralazine HCl (Apresoline -) 50 mg PO TID [facility] Last Admin: 07/21/18 06:30 Dose: 50 mg Levothyroxine Sodium (Synthroid -) 75 mcg PO DAILY@0700 [facility] Last Admin: 07/21/18 06:30 Dose: 75 mcg Methylprednisolone Sodium Succinate (Solu-Medrol -) 30 mg IVPUSH BID [facility] Last Admin: 07/21/18 10:55 Dose: 30 mg Multivitamins/Minerals/Vitamin C (Tab-A-Vit -) 1 tab PO DAILY [facility] Last Admin: 07/21/18 10:55 Dose: 1 tab Pantoprazole Sodium (Protonix -) 40 mg PO DAILY [facility] Last Admin: 07/21/18 10:55 Dose: 40 mg Last Vital Signs Temp Pulse Resp BP Pulse Ox 97.6 F 91 H 22 H 142/86 95 07/21/18 10:00 07/21/18 10:00 07/21/18 10:00 07/21/18 10:00 07/20/18 21:00 Lungs clear Heart s1s2 Abd soft Ext no edema CBC, BMP 07/19/18 07:00 07/21/18 06:30 IMP- ckd azotemia trending up slightly needs monitoring Plan- encourage fluids f/u bmp
--- NOTE | 2018-07-21 11:30 | PN ---
Progress Note, Physician History of Present Illness: PULMONARY ALERT,FEELING BETTER,DYSPNEA IMPROVING - Current Medication List Current Medications: Active Medications Acetaminophen (Tylenol -) 650 mg PO Q6H PRN PRN Reason: PAIN LEVEL 1-5 Last Admin: 07/20/18 17:11 Dose: 650 mg Apixaban (Eliquis -) 2.5 mg PO BID [facility] Last Admin: 07/21/18 10:54 Dose: 2.5 mg Atorvastatin Calcium (Lipitor -) 10 mg PO HS [facility] Last Admin: 07/20/18 21:22 Dose: 10 mg Budesonide/Formoterol Fumarate (Symbicort 80/4.5mcg -) 2 puff IH BID [facility] Last Admin: 07/21/18 10:58 Dose: 2 puff Clotrimazole (Lotrimin 1% Cream -) 1 applic TP BID [facility] Last Admin: 07/21/18 10:58 Dose: 1 applic Diltiazem HCl (Cardizem Cd -) 120 mg PO DAILY [facility] Last Admin: 07/21/18 10:54 Dose: 120 mg Furosemide (Lasix Injection -) 40 mg IVPUSH BID@0600,1400 [facility] Last Admin: 07/21/18 06:30 Dose: 40 mg Hydralazine HCl (Apresoline -) 50 mg PO TID [facility] Last Admin: 07/21/18 06:30 Dose: 50 mg Levothyroxine Sodium (Synthroid -) 75 mcg PO DAILY@0700 [facility] Last Admin: 07/21/18 06:30 Dose: 75 mcg Methylprednisolone Sodium Succinate (Solu-Medrol -) 30 mg IVPUSH BID [facility] Last Admin: 07/21/18 10:55 Dose: 30 mg Multivitamins/Minerals/Vitamin C (Tab-A-Vit -) 1 tab PO DAILY [facility] Last Admin: 07/21/18 10:55 Dose: 1 tab Pantoprazole Sodium (Protonix -) 40 mg PO DAILY [facility] Last Admin: 07/21/18 10:55 Dose: 40 mg - Objective Vital Signs: Vital Signs Temperature 97.6 F 07/21/18 10:00 Pulse Rate 91 H 07/21/18 10:00 Respiratory Rate 22 H 07/21/18 10:00 Blood Pressure 142/86 07/21/18 10:00 O2 Sat by Pulse Oximetry (%) 95 07/20/18 21:00 Constitutional: Yes: Well Nourished, Calm Eyes: Yes: WNL HENT: Yes: WNL Neck: Yes: WNL Cardiovascular: Yes: Pulse Irregular, S1, S2 Respiratory: Yes: Rales (BIBASILAR RALES) Gastrointestinal: Yes: Normal Bowel Sounds, Soft Extremities: Yes: WNL Edema: Yes Labs: CBC, BMP 07/19/18 07:00 07/21/18 06:30 INR, PTT INR 2.08 (0.83-1.09) H 06/24/18 11:30 Assessment/Plan ASSESSMENT AND PLAN: Acute on Chronic Hypoxic Respiratory Failure improving Pneumonia CHF Acute Kidney Injury Acute COPD Exacerbation Acute on Chronic Diastolic Heart Failure Pulmonary HTN Atrial Flutter with RVR HTN Hyperlipidemia Hypothyroidism - inhaled bronchodilators standing and PRN - iv lasix - NIPPV as needed - taper FiO2 to keep SpO2>90% - rate control - anticoagulation - monitor urine output, creatinine - steroid taper DR MENDOZA
[2018-07-21] MEDS: ACETAMINOPHEN 325 MG TABLET (FP) PO PRN (14:58)
[2018-07-21] MEDS: ATORVASTATIN CA 10 MG TABLET (FP) PO SCH (21:26)
--- NOTE | 2018-07-21 23:02 | PN ---
Progress Note (short form) - Note Progress Note: Progress Note (short form) - Note Progress Note: uses BIPAP as needed denies pain 2 Vital Signs - 24 hr 07/21/18 07/21/18 07/21/18 02:00 05:26 09:00 Temperature 98.1 F 97.5 F L Pulse Rate 87 79 Respiratory 20 20 Rate Blood Pressure 156/97 151/98 O2 Sat by Pulse 96 Oximetry (%) 07/21/18 07/21/18 07/21/18 10:00 15:40 18:22 Temperature 97.6 F 97.3 F L 98 F Pulse Rate 91 H 85 89 Respiratory 22 H 20 18 Rate Blood Pressure 142/86 136/81 145/89 O2 Sat by Pulse Oximetry (%) Current Medications Generic Name Dose Route Start Last Admin Trade Name Freq PRN Reason Stop Dose Admin Acetaminophen 650 mg 07/14/18 16:32 07/21/18 14:58 Tylenol - PO 650 mg Q6H PRN Administration PAIN LEVEL 1-5 Apixaban 2.5 mg 07/14/18 22:00 07/21/18 21:26 Eliquis - PO 2.5 mg BID JAGDEEP Administration Atorvastatin Calcium 10 mg 07/14/18 22:00 07/21/18 21:26 Lipitor - PO 10 mg HS JAGDEEP Administration Budesonide/Formoterol Fumarate 2 puff 07/14/18 22:00 07/21/18 21:26 Symbicort 80/4.5mcg - IH 2 puff BID JAGDEEP Administration Clotrimazole 1 applic 07/16/18 12:15 07/21/18 21:26 Lotrimin 1% Cream - TP 1 applic BID JAGDEEP Administration Diltiazem HCl 120 mg 07/12/18 10:00 07/21/18 10:54 Cardizem Cd - PO 120 mg DAILY JAGDEEP Administration Furosemide 40 mg 07/20/18 06:00 07/21/18 14:54 Lasix Injection - IVPUSH 40 mg BID@0600,1400 JAGDEEP Administration Hydralazine HCl 50 mg 07/14/18 22:00 07/21/18 21:26 Apresoline - PO 50 mg TID JAGDEEP Administration Levothyroxine Sodium 75 mcg 07/15/18 07:00 07/21/18 06:30 Synthroid - PO 75 mcg DAILY@0700 JAGDEEP Administration Methylprednisolone Sodium Succinate 20 mg 07/21/18 22:00 07/21/18 21:26 Solu-Medrol - IVPUSH 20 mg BID JAGDEEP Administration Multivitamins/Minerals/Vitamin C 1 tab 07/15/18 10:00 07/21/18 10:55 Tab-A-Vit - PO 1 tab DAILY JAGDEEP Administration Pantoprazole Sodium 40 mg 07/15/18 10:00 07/21/18 10:55 Protonix - PO 40 mg DAILY JAGDEEP Administration Laboratory Results - last 24 hr 07/21/18 06:30 Sodium 138 Potassium 3.5 Chloride 86 L Carbon Dioxide 49 H Anion Gap 3 L BUN 86 H Creatinine 1.6 H Creat Clearance w eGFR 41.39 Random Glucose 209 H Calcium 7.9 L Phosphorus 4.2 Magnesium 2.4 Physical Examination Constitutional: Yes: alert and awake Eyes: Yes: Conjunctiva Clear Neck: Yes: Supple, Other (no jvd) Cardiovascular: Yes: Pulse Irregular Respiratory: Yes: decreased breath sounds B/l , ronchi Gastrointestinal: Yes: Soft/ non tender . bowel sound present, no edema Neurological: Yes: Alert Psychiatric: Yes: Alert Assessment/Plan BIPAP as needed Continue present care Abx completed chest CT - -- congestion iv steroids-taper monitor nebulizer treatment on lasix BID Problem List - Problems (1) Respiratory failure with hypoxia Code(s): J96.91 - RESPIRATORY FAILURE, UNSPECIFIED WITH HYPOXIA (2) Chronic diastolic CHF (congestive heart failure) Code(s): I50.32 - CHRONIC DIASTOLIC (CONGESTIVE) HEART FAILURE (3) HTN (hypertension) Code(s): I10 - ESSENTIAL (PRIMARY) HYPERTENSION Qualifiers: Hypertension type: essential hypertension Qualified Code(s): I10 - Essential (primary) hypertension (4) Hypothyroidism Code(s): E03.9 - HYPOTHYROIDISM, UNSPECIFIED Qualifiers: Hypothyroidism type: unspecified Qualified Code(s): E03.9 - Hypothyroidism , unspecified (5) Paroxysmal A-fib Code(s): I48.0 - PAROXYSMAL ATRIAL FIBRILLATION
[2018-07-22] MEDS: LEVOTHYROXINE NA 75 MCG TABLET (FP) PO SCH (06:30)
[2018-07-22] MEDS: ACETAMINOPHEN 325 MG TABLET (FP) PO PRN ×2 (06:30→14:30)
[2018-07-22] MEDS: hydrALAZINE HCL 50 MG TABLET (FP) PO SCH ×3 (06:30→21:22)
[2018-07-22] MEDS: FUROSEMIDE 40 MG/4 ML INJECTABLE VIAL IVPUSH SCH ×2 (06:30→14:23)
[2018-07-22 08:49] LABS: BLOOD UREA NITROGEN 91 mg/dL (7-18); CALCIUM 8.1 mg/dL (8.5-10.1); CHLORIDE 86 mmol/L (98-107); CREATININE 1.7 mg/dL (0.55-1.3); GLUCOSE,RANDOM 233 mg/dL (74-106); POTASSIUM 3.8 mmol/L (3.5-5.1); SODIUM 140 mmol/L (136-145)
[2018-07-22 08:50] LABS: ANION GAP 3 MMOL/L (8-16); CO2 51 mmol/L (21-32)
[2018-07-22] MEDS ORDERED: PT OWN MED DRAWER 7, Y5N ONE (09:47)
[2018-07-22] MEDS: CLOTRIMAZOLE 1% CREAM 15 GM TUBE TP SCH ×2 (10:18→21:22)
[2018-07-22] MEDS: PANTOPRAZOLE 40 MG TABLET (FP) PO SCH (10:18)
[2018-07-22] MEDS: BUDESONIDE/FORMETEROL FUMARATE 80/4.5 mcg INHALER IH SCH ×2 (10:18→21:21)
[2018-07-22] MEDS: MULTIVITAMINS (DAILY MVI) TABLET (FP) PO SCH (10:18)
[2018-07-22] MEDS: APIXABAN 2.5 MG TABLET PO SCH ×2 (10:18→21:22)
[2018-07-22] MEDS: methylPREDNISolone NA SUCC 40 MG/1 ML VIAL IVPUSH SCH ×2 (10:19→21:21)
--- NOTE | 2018-07-22 12:45 | PN ---
Progress Note (short form) - Note Progress Note: Progress Note (short form) - Note Progress Note: uses BIPAP with relief breathing labored prior to using BIPAP denies pain Vital Signs - 24 hr 07/21/18 07/21/18 07/21/18 18:22 21:00 22:00 Temperature 98 F Pulse Rate 89 91 H Respiratory 18 20 20 Rate Blood Pressure 145/89 142/92 O2 Sat by Pulse 96 Oximetry (%) 07/22/18 07/22/18 07/22/18 05:26 05:45 09:00 Temperature 97.5 F L Pulse Rate 82 Respiratory 20 Rate Blood Pressure 155/96 O2 Sat by Pulse 97 95 Oximetry (%) 07/22/18 07/22/18 10:00 15:27 Temperature 98 F 97.5 F L Pulse Rate 92 H 91 H Respiratory 22 H 22 H Rate Blood Pressure 138/56 L 125/76 O2 Sat by Pulse Oximetry (%) Current Medications Generic Name Dose Route Start Last Admin Trade Name Freq PRN Reason Stop Dose Admin Acetaminophen 650 mg 07/14/18 16:32 07/22/18 14:30 Tylenol - PO 650 mg Q6H PRN Administration PAIN LEVEL 1-5 Apixaban 2.5 mg 07/14/18 22:00 07/22/18 10:18 Eliquis - PO 2.5 mg BID JAGDEEP Administration Atorvastatin Calcium 10 mg 07/14/18 22:00 07/21/18 21:26 Lipitor - PO 10 mg HS JAGDEEP Administration Budesonide/Formoterol Fumarate 2 puff 07/14/18 22:00 07/22/18 10:18 Symbicort 80/4.5mcg - IH 2 puff BID JAGDEEP Administration Clotrimazole 1 applic 07/16/18 12:15 07/22/18 10:18 Lotrimin 1% Cream - TP 1 applic BID JAGDEEP Administration Diltiazem HCl 120 mg 07/12/18 10:00 07/22/18 10:19 Cardizem Cd - PO 120 mg DAILY JAGDEEP Administration Furosemide 40 mg 07/20/18 06:00 07/22/18 14:23 Lasix Injection - IVPUSH 40 mg BID@0600,1400 JAGDEEP Administration Hydralazine HCl 50 mg 07/14/18 22:00 07/22/18 14:23 Apresoline - PO 50 mg TID JAGDEEP Administration Levothyroxine Sodium 75 mcg 07/15/18 07:00 07/22/18 06:30 Synthroid - PO 75 mcg DAILY@0700 JAGDEEP Administration Methylprednisolone Sodium Succinate 20 mg 07/21/18 22:00 07/22/18 10:19 Solu-Medrol - IVPUSH 20 mg BID JAGDEEP Administration Multivitamins/Minerals/Vitamin C 1 tab 07/15/18 10:00 07/22/18 10:18 Tab-A-Vit - PO 1 tab DAILY JAGDEEP Administration Pantoprazole Sodium 40 mg 07/15/18 10:00 07/22/18 10:18 Protonix - PO 40 mg DAILY JAGDEEP Administration Laboratory Results - last 24 hr 07/22/18 05:45 Sodium 140 Potassium 3.8 Chloride 86 L Carbon Dioxide 51 H Anion Gap 3 L BUN 91 H Creatinine 1.7 H Creat Clearance w eGFR 38.59 Random Glucose 233 H Calcium 8.1 L Physical Examination Constitutional: Yes: alert and awake Eyes: Yes: Conjunctiva Clear Neck: Yes: Supple, Other (no jvd) Cardiovascular: Yes: Pulse Irregular Respiratory: Yes: decreased breath sounds B/l , ronchi Gastrointestinal: Yes: Soft/ non tender . bowel sound present, no edema Neurological: Yes: Alert Psychiatric: Yes: Alert Assessment/Plan BIPAP as needed Continue present care Abx completed chest CT - -- congestion iv steroids monitor nebulizer treatment on lasix BID --> decrease to once daily-- worsening renal function Problem List - Problems (1) Respiratory failure with hypoxia Code(s): J96.91 - RESPIRATORY FAILURE, UNSPECIFIED WITH HYPOXIA (2) Chronic diastolic CHF (congestive heart failure) Code(s): I50.32 - CHRONIC DIASTOLIC (CONGESTIVE) HEART FAILURE (3) HTN (hypertension) Code(s): I10 - ESSENTIAL (PRIMARY) HYPERTENSION Qualifiers: Hypertension type: essential hypertension Qualified Code(s): I10 - Essential (primary) hypertension (4) Hypothyroidism Code(s): E03.9 - HYPOTHYROIDISM, UNSPECIFIED Qualifiers: Hypothyroidism type: unspecified Qualified Code(s): E03.9 - Hypothyroidism , unspecified (5) Paroxysmal A-fib Code(s): I48.0 - PAROXYSMAL ATRIAL FIBRILLATION
--- NOTE | 2018-07-22 12:59 | PN ---
Progress Note, Physician History of Present Illness: pulmonary alert,c/o increased sob earlier placed on bipap with clinical improvement - Current Medication List Current Medications: Active Medications Acetaminophen (Tylenol -) 650 mg PO Q6H PRN PRN Reason: PAIN LEVEL 1-5 Last Admin: 07/22/18 06:30 Dose: 650 mg Apixaban (Eliquis -) 2.5 mg PO BID [facility] Last Admin: 07/22/18 10:18 Dose: 2.5 mg Atorvastatin Calcium (Lipitor -) 10 mg PO HS [facility] Last Admin: 07/21/18 21:26 Dose: 10 mg Budesonide/Formoterol Fumarate (Symbicort 80/4.5mcg -) 2 puff IH BID [facility] Last Admin: 07/22/18 10:18 Dose: 2 puff Clotrimazole (Lotrimin 1% Cream -) 1 applic TP BID [facility] Last Admin: 07/22/18 10:18 Dose: 1 applic Diltiazem HCl (Cardizem Cd -) 120 mg PO DAILY [facility] Last Admin: 07/22/18 10:19 Dose: 120 mg Furosemide (Lasix Injection -) 40 mg IVPUSH BID@0600,1400 [facility] Last Admin: 07/22/18 06:30 Dose: 40 mg Hydralazine HCl (Apresoline -) 50 mg PO TID [facility] Last Admin: 07/22/18 06:30 Dose: 50 mg Levothyroxine Sodium (Synthroid -) 75 mcg PO DAILY@0700 [facility] Last Admin: 07/22/18 06:30 Dose: 75 mcg Methylprednisolone Sodium Succinate (Solu-Medrol -) 20 mg IVPUSH BID [facility] Last Admin: 07/22/18 10:19 Dose: 20 mg Multivitamins/Minerals/Vitamin C (Tab-A-Vit -) 1 tab PO DAILY [facility] Last Admin: 07/22/18 10:18 Dose: 1 tab Pantoprazole Sodium (Protonix -) 40 mg PO DAILY [facility] Last Admin: 07/22/18 10:18 Dose: 40 mg - Objective Vital Signs: Vital Signs Temperature 98 F 07/22/18 10:00 Pulse Rate 92 H 07/22/18 10:00 Respiratory Rate 22 H 07/22/18 10:00 Blood Pressure 138/56 L 07/22/18 10:00 O2 Sat by Pulse Oximetry (%) 97 07/22/18 05:26 Constitutional: Yes: Well Nourished, Calm Eyes: Yes: WNL HENT: Yes: WNL Neck: Yes: WNL Cardiovascular: Yes: Regular Rate and Rhythm, S1, S2 Respiratory: Yes: On BiPap, Rhonchi (few rhonchi) Gastrointestinal: Yes: Normal Bowel Sounds, Soft Extremities: Yes: WNL Edema: Yes Labs: 07/22/18 05:45 INR, PTT INR 2.08 (0.83-1.09) H 06/24/18 11:30 Assessment/Plan ASSESSMENT AND PLAN: Acute on Chronic Hypoxic Respiratory Failure improving Pneumonia CHF Acute Kidney Injury Acute COPD Exacerbation Acute on Chronic Diastolic Heart Failure Pulmonary HTN Atrial Flutter with RVR HTN Hyperlipidemia Hypothyroidism - inhaled bronchodilators standing and PRN - iv lasix - NIPPV as needed - taper FiO2 to keep SpO2>90% - rate control - anticoagulation - monitor urine output, creatinine - steroid taper - chest x-ray today DR MENDOZA
--- NOTE | 2018-07-22 17:07 | PN ---
Progress Note (short form) - Note Progress Note: covering dr kovacs problems PMHX- CKD, Hyperlipidemia, CHF, COPD, Afib, Hypothyroidism anemia, gallstones currently PNA + CHF and ANNALISA. Current Medications Acetaminophen (Tylenol -) 650 mg PO Q6H PRN PRN Reason: PAIN LEVEL 1-5 Last Admin: 07/22/18 14:30 Dose: 650 mg Apixaban (Eliquis -) 2.5 mg PO BID [facility] Last Admin: 07/22/18 10:18 Dose: 2.5 mg Atorvastatin Calcium (Lipitor -) 10 mg PO HS [facility] Last Admin: 07/21/18 21:26 Dose: 10 mg Budesonide/Formoterol Fumarate (Symbicort 80/4.5mcg -) 2 puff IH BID [facility] Last Admin: 07/22/18 10:18 Dose: 2 puff Clotrimazole (Lotrimin 1% Cream -) 1 applic TP BID [facility] Last Admin: 07/22/18 10:18 Dose: 1 applic Diltiazem HCl (Cardizem Cd -) 120 mg PO DAILY [facility] Last Admin: 07/22/18 10:19 Dose: 120 mg Furosemide (Lasix Injection -) 40 mg IVPUSH DAILY [facility] Hydralazine HCl (Apresoline -) 50 mg PO TID [facility] Last Admin: 07/22/18 14:23 Dose: 50 mg Levothyroxine Sodium (Synthroid -) 75 mcg PO DAILY@0700 [facility] Last Admin: 07/22/18 06:30 Dose: 75 mcg Methylprednisolone Sodium Succinate (Solu-Medrol -) 20 mg IVPUSH BID [facility] Last Admin: 07/22/18 10:19 Dose: 20 mg Multivitamins/Minerals/Vitamin C (Tab-A-Vit -) 1 tab PO DAILY [facility] Last Admin: 07/22/18 10:18 Dose: 1 tab Pantoprazole Sodium (Protonix -) 40 mg PO DAILY [facility] Last Admin: 07/22/18 10:18 Dose: 40 mg Now on once daily furosemide IV still with episodes of sob earlier today Last Vital Signs Temp Pulse Resp BP Pulse Ox 97.5 F L 91 H 22 H 125/76 95 07/22/18 15:27 07/22/18 15:27 07/22/18 15:27 07/22/18 15:27 07/22/18 16:10 Lungs clear Heart s1s2 Abd soft Ext no edema CBC, BMP 07/19/18 07:00 07/22/18 05:45 CBC, BMP 07/19/18 07:00 07/21/18 06:30 IMP- ckd azotemia trending up slightly needs monitoring copd and heart failure Plan- follow weights also to guide tx encourage fluids f/u bmp
[2018-07-22] MEDS: ATORVASTATIN CA 10 MG TABLET (FP) PO SCH (21:22)
[2018-07-23] MEDS: ACETAMINOPHEN 325 MG TABLET (FP) PO PRN ×2 (01:47→22:04)
[2018-07-23] MEDS: hydrALAZINE HCL 50 MG TABLET (FP) PO SCH ×3 (06:16→22:04)
[2018-07-23] MEDS: LEVOTHYROXINE NA 75 MCG TABLET (FP) PO SCH (06:16)
[2018-07-23] MEDS: CLOTRIMAZOLE 1% CREAM 15 GM TUBE TP SCH ×3 (10:00→22:05)
[2018-07-23] MEDS ORDERED: PT OWN MED DRAWER 7, Y5N ONE ×2 (10:15→15:42)
[2018-07-23] MEDS: MULTIVITAMINS (DAILY MVI) TABLET (FP) PO SCH (10:19)
[2018-07-23] MEDS: APIXABAN 2.5 MG TABLET PO SCH ×2 (10:19→22:04)
[2018-07-23] MEDS: PANTOPRAZOLE 40 MG TABLET (FP) PO SCH (10:19)
[2018-07-23] MEDS: methylPREDNISolone NA SUCC 40 MG/1 ML VIAL IVPUSH SCH (10:20)
[2018-07-23] MEDS: BUDESONIDE/FORMETEROL FUMARATE 80/4.5 mcg INHALER IH SCH ×2 (10:21→22:04)
[2018-07-23 10:37] LABS: ANION GAP 8 MMOL/L (8-16); BLOOD UREA NITROGEN 100 mg/dL (7-18); CALCIUM 8.5 mg/dL (8.5-10.1); CHLORIDE 86 mmol/L (98-107); CO2 44 mmol/L (21-32); CREATININE 1.8 mg/dL (0.55-1.3); GLUCOSE,RANDOM 299 mg/dL (74-106); POTASSIUM 3.1 mmol/L (3.5-5.1); SODIUM 138 mmol/L (136-145)
[2018-07-23] MEDS: FUROSEMIDE 40 MG/4 ML INJECTABLE VIAL IVPUSH SCH (10:43)
--- NOTE | 2018-07-23 11:46 | PN ---
Progress Note (short form) - Note Progress Note: Patient seen and examined Comfortable Feels better decreased short of breath All follow-ups noted Vital Signs Temp 97.7 F 07/23/18 06:47 Pulse 88 07/23/18 06:47 Resp 18 07/23/18 06:47 BP 138/95 07/23/18 06:47 Pulse Ox 97 07/23/18 11:43 Intake & Output 07/22/18 07/22/18 07/23/18 11:59 23:59 11:59 Intake Total 780 620 Output Total 350 900 600 Balance -350 -120 20 Weight 163 lb 8 oz 162 lb 12.8 oz Intake: Oral 780 620 Output: Urine 350 900 600 Void 350 900 600 Other: Voiding Method Incontinent Urinal Urinal Bowel Movement Yes Yes Yes # Bowel Movements 2 Weight Measurement Method Patient Lift Scale Patient Lift Scale Active Medications Acetaminophen (Tylenol -) 650 mg PO Q6H PRN PRN Reason: PAIN LEVEL 1-5 Last Admin: 07/22/18 14:30 Dose: 650 mg Apixaban (Eliquis -) 2.5 mg PO BID [facility] Last Admin: 07/23/18 10:19 Dose: 2.5 mg Atorvastatin Calcium (Lipitor -) 10 mg PO HS [facility] Last Admin: 07/22/18 21:22 Dose: 10 mg Budesonide/Formoterol Fumarate (Symbicort 80/4.5mcg -) 2 puff IH BID [facility] Last Admin: 07/23/18 10:21 Dose: 2 puff Clotrimazole (Lotrimin 1% Cream -) 1 applic TP BID [facility] Last Admin: 07/23/18 10:20 Dose: Not Given Diltiazem HCl (Cardizem Cd -) 120 mg PO DAILY [facility] Last Admin: 07/23/18 10:19 Dose: 120 mg Furosemide (Lasix Injection -) 40 mg IVPUSH DAILY [facility] Last Admin: 07/23/18 10:43 Dose: 40 mg Hydralazine HCl (Apresoline -) 50 mg PO TID [facility] Last Admin: 07/23/18 06:16 Dose: 50 mg Levothyroxine Sodium (Synthroid -) 75 mcg PO DAILY@0700 [facility] Last Admin: 07/23/18 06:16 Dose: 75 mcg Methylprednisolone Sodium Succinate (Solu-Medrol -) 20 mg IVPUSH BID [facility] Last Admin: 07/23/18 10:20 Dose: 20 mg Multivitamins/Minerals/Vitamin C (Tab-A-Vit -) 1 tab PO DAILY [facility] Last Admin: 07/23/18 10:19 Dose: 1 tab Pantoprazole Sodium (Protonix -) 40 mg PO DAILY [facility] Last Admin: 07/23/18 10:19 Dose: 40 mg CBC, BMP 07/19/18 07:00 07/23/18 07:10 Physical Examination Constitutional: Yes: alert and awake. comfortable Eyes: Yes: Conjunctiva Clear Neck: Yes: Supple, Other (no jvd) Cardiovascular: Yes: Pulse Irregular Respiratory: Yes: Bibasilar rales--- Improved Gastrointestinal: Yes: Soft/ non tender . bowel sound present, no edema Neurological: Yes: Alert Psychiatric: Yes: Alert Assessment/Plan BIPAP as needed Continue present care off antibiotics iv steroids-taper monitor nebulizer treatment i/v lasix BID - monitor renal function supplement potassium today Continue other meds daily oob- chair will follow slowly improving Problem List - Problems (1) Respiratory failure with hypoxia Code(s): J96.91 - RESPIRATORY FAILURE, UNSPECIFIED WITH HYPOXIA (2) Chronic diastolic CHF (congestive heart failure) Code(s): I50.32 - CHRONIC DIASTOLIC (CONGESTIVE) HEART FAILURE (3) HTN (hypertension) Code(s): I10 - ESSENTIAL (PRIMARY) HYPERTENSION Qualifiers: Hypertension type: essential hypertension Qualified Code(s): I10 - Essential (primary) hypertension (4) Hypothyroidism Code(s): E03.9 - HYPOTHYROIDISM, UNSPECIFIED Qualifiers: Hypothyroidism type: unspecified Qualified Code(s): E03.9 - Hypothyroidism , unspecified (5) Paroxysmal A-fib Code(s): I48.0 - PAROXYSMAL ATRIAL FIBRILLATION
--- NOTE | 2018-07-23 12:11 | PN ---
Progress Note (short form) - Note Progress Note: PULMONARY Denies shortness of breath, cough or wheezing. Vital Signs Period Temp Pulse Resp BP Sys/[place] Pulse Ox Last 24 Hr 97.5 F-98 F 88-91 18-22 125-147/60-95 95-97 Gen: NAD at rest Heart: RRR Lung: distant breath sounds Abd: soft, nontender Ext: no edema CBC, BMP 07/19/18 07:00 07/23/18 07:10 Active Medications Acetaminophen (Tylenol -) 650 mg PO Q6H PRN PRN Reason: PAIN LEVEL 1-5 Last Admin: 07/22/18 14:30 Dose: 650 mg Apixaban (Eliquis -) 2.5 mg PO BID [facility] Last Admin: 07/23/18 10:19 Dose: 2.5 mg Atorvastatin Calcium (Lipitor -) 10 mg PO HS [facility] Last Admin: 07/22/18 21:22 Dose: 10 mg Budesonide/Formoterol Fumarate (Symbicort 80/4.5mcg -) 2 puff IH BID [facility] Last Admin: 07/23/18 10:21 Dose: 2 puff Clotrimazole (Lotrimin 1% Cream -) 1 applic TP BID [facility] Last Admin: 07/23/18 10:20 Dose: Not Given Diltiazem HCl (Cardizem Cd -) 120 mg PO DAILY [facility] Last Admin: 07/23/18 10:19 Dose: 120 mg Furosemide (Lasix Injection -) 40 mg IVPUSH DAILY [facility] Last Admin: 07/23/18 10:43 Dose: 40 mg Hydralazine HCl (Apresoline -) 50 mg PO TID [facility] Last Admin: 07/23/18 06:16 Dose: 50 mg Levothyroxine Sodium (Synthroid -) 75 mcg PO DAILY@0700 [facility] Last Admin: 07/23/18 06:16 Dose: 75 mcg Methylprednisolone Sodium Succinate (Solu-Medrol -) 20 mg IVPUSH BID [facility] Last Admin: 07/23/18 10:20 Dose: 20 mg Multivitamins/Minerals/Vitamin C (Tab-A-Vit -) 1 tab PO DAILY [facility] Last Admin: 07/23/18 10:19 Dose: 1 tab Pantoprazole Sodium (Protonix -) 40 mg PO DAILY [facility] Last Admin: 09/24/18 10:19 Dose: 40 mg Potassium Chloride (Potassium Chloride Oral Liquid) 40 meq PO DAILY JAGDEEP A/P Acute on Chronic Hypoxic Respiratory Failure improving Pneumonia Acute Kidney Injury resolving Acute COPD Exacerbation Acute on Chronic Diastolic Heart Failure Pulmonary HTN Atrial Flutter with RVR HTN Hyperlipidemia Hypothyroidism - continue antibiotics per ID - can change steroids to PO prednisone - inhaled bronchodilators standing and PRN - lasix as needed - BiPAP to assist in work of breathing - taper FiO2 to keep SpO2>90% - rate control - anticoagulation - monitor urine output, creatinine
--- NOTE | 2018-07-23 12:14 | PN ---
Progress Note (short form) - Note Progress Note: Renal follow up for ANNALISA Pt seen and examined at the bedside reports feeling better was able to sleep w/o bipap no cp, abd pain, n/v/d making urine weights improving Vital Signs Temperature 97.7 F 07/23/18 06:47 Pulse Rate 88 07/23/18 06:47 Respiratory Rate 18 07/23/18 06:47 Blood Pressure 138/95 07/23/18 06:47 O2 Sat by Pulse Oximetry (%) 97 07/23/18 11:43 Intake & Output 07/20/18 07/21/18 07/22/18 07/23/18 23:59 23:59 23:59 23:59 Intake Total 1875 520 780 620 Output Total 350 1250 600 Balance 1875 170 -470 20 Weight 78.199 kg 75.92 kg 74.162 kg 73.845 kg NAD on BIPAP RRR Dec BS b/l Lung ribera no LE edema CBC, BMP 07/19/18 07:00 07/23/18 07:10 Current Medications Acetaminophen (Tylenol -) 650 mg PO Q6H PRN PRN Reason: PAIN LEVEL 1-5 Last Admin: 07/22/18 14:30 Dose: 650 mg Apixaban (Eliquis -) 2.5 mg PO BID [facility] Last Admin: 07/23/18 10:19 Dose: 2.5 mg Atorvastatin Calcium (Lipitor -) 10 mg PO HS [facility] Last Admin: 07/22/18 21:22 Dose: 10 mg Budesonide/Formoterol Fumarate (Symbicort 80/4.5mcg -) 2 puff IH BID [facility] Last Admin: 07/23/18 10:21 Dose: 2 puff Clotrimazole (Lotrimin 1% Cream -) 1 applic TP BID [facility] Last Admin: 07/23/18 10:20 Dose: Not Given Diltiazem HCl (Cardizem Cd -) 120 mg PO DAILY [facility] Last Admin: 07/23/18 10:19 Dose: 120 mg Furosemide (Lasix Injection -) 40 mg IVPUSH DAILY [facility] Last Admin: 07/23/18 10:43 Dose: 40 mg Hydralazine HCl (Apresoline -) 50 mg PO TID [facility] Last Admin: 07/23/18 06:16 Dose: 50 mg Levothyroxine Sodium (Synthroid -) 75 mcg PO DAILY@0700 [facility] Last Admin: 07/23/18 06:16 Dose: 75 mcg Multivitamins/Minerals/Vitamin C (Tab-A-Vit -) 1 tab PO DAILY [facility] Last Admin: 07/23/18 10:19 Dose: 1 tab Pantoprazole Sodium (Protonix -) 40 mg PO DAILY [facility] Last Admin: 07/23/18 10:19 Dose: 40 mg Potassium Chloride (Potassium Chloride Oral Liquid) 40 meq PO DAILY [facility] 82 year old AA gentleman with history of CKD, Hyperlipidemia, CHF, COPD, Afib, Hypothyroidism who presented with SOB and Fever and found to have PNA + CHF and developed ANNALISA. #ANNALISA on CKD, now improving with diuretics #CKD #PNA #CHF improving #COPD/Reactive airway disease #Anemia #Gallstones/Gallbladder wall thickening BUN/Cr up trending in setting of BID IV diuretics agree with reduction in frequency of diuretic as weights much improved supplement K to goal > 3.5 BIPAP as needed pulmonary follow up will change diet to diabetic given blood glucose levels running high Pravin Veras DO
--- NOTE | 2018-07-23 12:52 | PN ---
Progress Note, Physician History of Present Illness: Patient is a 82 year old male was sent from [facility] for worsening SOB. Patient reports that since many years he has had SOB due to COPD, has been on Oxygen intermittently for 6 yrs but since October,, has been using continuously. Since few days before admission, he had SOB, worsening, associated with wheezing, cough. It was productive, yellowish sputum. Denies chest pain, palpitation, abdominal pain, nausea or vomiting. Bowel/Bladder habit normal. Bowel movement was yesterday. Sleep/Appetite normal. 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 Smoking: Quit in 1955, smoked for 15 yrs, < 1pack/day Alcohol: Occasional quit years ago Drugs: Denies - Current Medication List Current Medications: Active Medications Acetaminophen (Tylenol -) 650 mg PO Q6H PRN PRN Reason: PAIN LEVEL 1-5 Last Admin: 07/22/18 14:30 Dose: 650 mg Apixaban (Eliquis -) 2.5 mg PO BID [facility] Last Admin: 07/23/18 10:19 Dose: 2.5 mg Atorvastatin Calcium (Lipitor -) 10 mg PO HS [facility] Last Admin: 07/22/18 21:22 Dose: 10 mg Budesonide/Formoterol Fumarate (Symbicort 80/4.5mcg -) 2 puff IH BID [facility] Last Admin: 07/23/18 10:21 Dose: 2 puff Clotrimazole (Lotrimin 1% Cream -) 1 applic TP BID [facility] Last Admin: 07/23/18 10:20 Dose: Not Given Diltiazem HCl (Cardizem Cd -) 120 mg PO DAILY [facility] Last Admin: 07/23/18 10:19 Dose: 120 mg Furosemide (Lasix Injection -) 40 mg IVPUSH DAILY [facility] Last Admin: 07/23/18 10:43 Dose: 40 mg Hydralazine HCl (Apresoline -) 50 mg PO TID [facility] Last Admin: 07/23/18 06:16 Dose: 50 mg Levothyroxine Sodium (Synthroid -) 75 mcg PO DAILY@0700 [facility] Last Admin: 07/23/18 06:16 Dose: 75 mcg Multivitamins/Minerals/Vitamin C (Tab-A-Vit -) 1 tab PO DAILY [facility] Last Admin: 07/23/18 10:19 Dose: 1 tab Pantoprazole Sodium (Protonix -) 40 mg PO DAILY [facility] Last Admin: 07/23/18 10:19 Dose: 40 mg Potassium Chloride (Potassium Chloride Oral Liquid) 40 meq PO DAILY [facility] Prednisone (Deltasone -) 20 mg PO DAILY [facility] - Objective Vital Signs: Vital Signs Temperature 97.4 F L 07/23/18 10:00 Pulse Rate 93 H 07/23/18 10:00 Respiratory Rate 18 07/23/18 10:00 Blood Pressure 150/90 07/23/18 10:00 O2 Sat by Pulse Oximetry (%) 97 07/23/18 11:43 Eyes: Yes: WNL, Conjunctiva Clear, EOM Intact HENT: Yes: WNL, Atraumatic, Normocephalic Neck: Yes: WNL, Supple, Trachea Midline Cardiovascular: Yes: Pulse Irregular, S1, S2 Respiratory: Yes: WNL, Regular, CTA Bilaterally Gastrointestinal: Yes: WNL, Normal Bowel Sounds Genitourinary: Yes: WNL Musculoskeletal: Yes: WNL Extremities: Yes: WNL Edema: No Integumentary: Yes: WNL Neurological: Yes: WNL, Alert, Oriented ...Motor Strength: WNL Psychiatric: Yes: WNL Labs: CBC, BMP 07/19/18 07:00 07/23/18 07:10 INR, PTT INR 2.08 (0.83-1.09) H 06/24/18 11:30 Assessment/Plan - Problems (1) Atrial flutter Assessment/Plan: Diltiazem CD 120 mg daily for HR control. Continue apixaban for anticoagulation. Code(s): I48.92 - UNSPECIFIED ATRIAL FLUTTER (2) CKD (chronic kidney disease) Code(s): N18.9 - CHRONIC KIDNEY DISEASE, UNSPECIFIED Qualifiers: Chronic kidney disease stage: unspecified stage Qualified Code(s): N18.9 - Chronic kidney disease, unspecified (3) COPD exacerbation Assessment/Plan: hx exposure to 2nd hand smoke. Gives hx of "asthma". On bronchodilators, steroids, O2, Bipap per pulmonary (pt says he has oxygen at home, but not Bipap). For discontinuation of antibiotics. Code(s): J44.1 - CHRONIC OBSTRUCTIVE PULMONARY DISEASE W (ACUTE) EXACERBATION (4) Chronic diastolic CHF (congestive heart failure) Assessment/Plan: On hydralazine, diltiazem, and furosemide. F/u BUN/Cr, electrolytes. Is and Os; daily weights. Code(s): I50.32 - CHRONIC DIASTOLIC (CONGESTIVE) HEART FAILURE (5) GERD (gastroesophageal reflux disease) Code(s): K21.9 - GASTRO-ESOPHAGEAL REFLUX DISEASE WITHOUT ESOPHAGITIS Qualifiers: Esophagitis presence: esophagitis presence not specified Qualified Code(s) : K21.9 - Gastro-esophageal reflux disease without esophagitis (6) HTN (hypertension) Assessment/Plan: On diltiazem, , hydralazine and furosemide. May increase doses of both diltiazem and hydralazine if required for BP control. Code(s): I10 - ESSENTIAL (PRIMARY) HYPERTENSION Qualifiers: Hypertension type: essential hypertension Qualified Code(s): I10 - Essential (primary) hypertension (7) Hypothyroidism Assessment/Plan: On sythroid; elevated TSH; normal free T4. 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 Good urinary output. Code(s): N28.9 - DISORDER OF KIDNEY AND URETER, UNSPECIFIED (9) Pulmonary HTN Assessment/Plan: RVSP likely moderately severe (noted significant TR on ECHO, which also showed normal LVEF; moderately dilated RA, mildly dilated RV, borderline reduced RVEF, mild LAE, mild MR, moderate DE) Code(s): I27.20 - PULMONARY HYPERTENSION, UNSPECIFIED
[2018-07-23] MEDS: POTASSIUM CHLORIDE ORAL LIQUID 20 MEQ/15 ML PO SCH (13:49)
[2018-07-23 16:18] VITALS: BMI 21.9
[2018-07-23] MEDS: ATORVASTATIN CA 10 MG TABLET (FP) PO SCH (22:04)
[2018-07-24] MEDS: LEVOTHYROXINE NA 75 MCG TABLET (FP) PO SCH (06:07)
[2018-07-24] MEDS: hydrALAZINE HCL 50 MG TABLET (FP) PO SCH ×3 (06:07→22:08)
[2018-07-24] MEDS ORDERED: PT OWN MED DRAWER 7, Y5N ONE ×2 (09:58→21:40)
[2018-07-24] MEDS: PANTOPRAZOLE 40 MG TABLET (FP) PO SCH (10:03)
[2018-07-24] MEDS: FUROSEMIDE 40 MG/4 ML INJECTABLE VIAL IVPUSH SCH (10:03)
[2018-07-24] MEDS: MULTIVITAMINS (DAILY MVI) TABLET (FP) PO SCH (10:03)
[2018-07-24] MEDS: predniSONE 20 MG TABLET (UD) PO SCH (10:03)
[2018-07-24] MEDS: APIXABAN 2.5 MG TABLET PO SCH ×2 (10:03→22:08)
[2018-07-24] MEDS: POTASSIUM CHLORIDE ORAL LIQUID 20 MEQ/15 ML PO SCH (10:03)
[2018-07-24] MEDS: CLOTRIMAZOLE 1% CREAM 15 GM TUBE TP SCH ×2 (10:04→22:07)
[2018-07-24] MEDS: BUDESONIDE/FORMETEROL FUMARATE 80/4.5 mcg INHALER IH SCH ×2 (10:04→22:08)
[2018-07-24 10:45] LABS: ANION GAP 12 MMOL/L (8-16); BLOOD UREA NITROGEN 91 mg/dL (7-18); CALCIUM 8.7 mg/dL (8.5-10.1); CHLORIDE 91 mmol/L (98-107); CO2 42 mmol/L (21-32); CREATININE 1.5 mg/dL (0.55-1.3); GLUCOSE,RANDOM 209 mg/dL (74-106); MAGNESIUM 2.5 mg/dL (1.8-2.4); POTASSIUM 3.3 mmol/L (3.5-5.1); SODIUM 144 mmol/L (136-145)
[2018-07-24] MEDS ORDERED: POTASSIUM CHLORIDE TABS 20 MEQ TABLET.ER (FP) PO ONE (11:30)
[2018-07-24] MEDS ORDERED: POTASSIUM CHLORIDE ORAL LIQUID 20 MEQ/15 ML PO ONE (11:50)
--- NOTE | 2018-07-24 12:20 | PN ---
Progress Note (short form) - Note Progress Note: PULMONARY Denies shortness of breath, cough or wheezing. Vital Signs Period Temp Pulse Resp BP Sys/[place] Pulse Ox Last 24 Hr 97.5 F-98.5 F 83-95 18-18 113-144/58-98 96-98 Gen: NAD at rest Heart: RRR Lung: distant breath sounds Abd: soft, nontender Ext: no edema CBC, BMP 07/19/18 07:00 07/24/18 09:45 Active Medications Acetaminophen (Tylenol -) 650 mg PO Q6H PRN PRN Reason: PAIN LEVEL 1-5 Last Admin: 07/23/18 22:04 Dose: 650 mg Apixaban (Eliquis -) 2.5 mg PO BID [facility] Last Admin: 07/24/18 10:03 Dose: 2.5 mg Atorvastatin Calcium (Lipitor -) 10 mg PO HS [facility] Last Admin: 07/23/18 22:04 Dose: 10 mg Budesonide/Formoterol Fumarate (Symbicort 80/4.5mcg -) 2 puff IH BID [facility] Last Admin: 07/24/18 10:04 Dose: 2 puff Clotrimazole (Lotrimin 1% Cream -) 1 applic TP BID [facility] Last Admin: 07/24/18 10:04 Dose: 1 applic Diltiazem HCl (Cardizem Cd -) 120 mg PO DAILY [facility] Last Admin: 07/24/18 10:03 Dose: 120 mg Furosemide (Lasix Injection -) 40 mg IVPUSH DAILY [facility] Last Admin: 07/24/18 10:03 Dose: 40 mg Hydralazine HCl (Apresoline -) 50 mg PO TID [facility] Last Admin: 07/24/18 06:07 Dose: 50 mg Levothyroxine Sodium (Synthroid -) 75 mcg PO DAILY@0700 [facility] Last Admin: 07/24/18 06:07 Dose: 75 mcg Multivitamins/Minerals/Vitamin C (Tab-A-Vit -) 1 tab PO DAILY [facility] Last Admin: 07/24/18 10:03 Dose: 1 tab Pantoprazole Sodium (Protonix -) 40 mg PO DAILY [facility] Last Admin: 07/24/18 10:03 Dose: 40 mg Potassium Chloride (Potassium Chloride Oral Liquid) 40 meq PO DAILY [facility] Last Admin: 07/24/18 10:03 Dose: 40 meq Prednisone (Deltasone -) 20 mg PO DAILY [facility] Last Admin: 07/24/18 10:03 Dose: 20 mg A/P Acute on Chronic Hypoxic Respiratory Failure improving Pneumonia Acute Kidney Injury resolving Acute COPD Exacerbation Acute on Chronic Diastolic Heart Failure Pulmonary HTN Atrial Flutter with RVR HTN Hyperlipidemia Hypothyroidism - completed antibiotics - prednisone taper - inhaled bronchodilators standing and PRN - lasix as needed - taper FiO2 to keep SpO2>90% - rate control - anticoagulation - monitor urine output, creatinine
--- NOTE | 2018-07-24 14:30 | PN ---
Progress Note, Physician Chief Complaint: Pt A&Ox3;denies chest pain or problems breathing, saying (as he often does) he hopes he can go home today or tomorrow. History of Present Illness: Father Eula is an 82 black man with PMH of COPD, a-fib (Eliquis), CKD, HLD, HTN, diastolic CHF with reduced RVEF, moderately severe pulmonary HTN,and hypothyroidism, who presents from his detention ([facility]) with worsening shortness of breath, fever (Tm 101.6), and hypoxia despite 3L NC. On arrival, the patient endorses worsening dyspnea and productive cough. He also reports chronic abdominal pain 2/2 hiatal hernia. Patient denies MCGRATH, acute vision change, chest pain, BLE swelling, or changes in sensation. - Current Medication List Current Medications: Active Medications Acetaminophen (Tylenol -) 650 mg PO Q6H PRN PRN Reason: PAIN LEVEL 1-5 Last Admin: 07/23/18 22:04 Dose: 650 mg Apixaban (Eliquis -) 2.5 mg PO BID [facility] Last Admin: 07/24/18 10:03 Dose: 2.5 mg Atorvastatin Calcium (Lipitor -) 10 mg PO HS [facility] Last Admin: 07/23/18 22:04 Dose: 10 mg Budesonide/Formoterol Fumarate (Symbicort 80/4.5mcg -) 2 puff IH BID [facility] Last Admin: 07/24/18 10:04 Dose: 2 puff Clotrimazole (Lotrimin 1% Cream -) 1 applic TP BID [facility] Last Admin: 07/24/18 10:04 Dose: 1 applic Diltiazem HCl (Cardizem Cd -) 120 mg PO DAILY [facility] Last Admin: 07/24/18 10:03 Dose: 120 mg Furosemide (Lasix Injection -) 40 mg IVPUSH DAILY [facility] Last Admin: 07/24/18 10:03 Dose: 40 mg Hydralazine HCl (Apresoline -) 50 mg PO TID [facility] Last Admin: 07/24/18 13:51 Dose: 50 mg Levothyroxine Sodium (Synthroid -) 75 mcg PO DAILY@0700 [facility] Last Admin: 07/24/18 06:07 Dose: 75 mcg Multivitamins/Minerals/Vitamin C (Tab-A-Vit -) 1 tab PO DAILY [facility] Last Admin: 07/24/18 10:03 Dose: 1 tab Pantoprazole Sodium (Protonix -) 40 mg PO DAILY [facility] Last Admin: 07/24/18 10:03 Dose: 40 mg Potassium Chloride (Potassium Chloride Oral Liquid) 40 meq PO DAILY [facility] Last Admin: 07/24/18 10:03 Dose: 40 meq Prednisone (Deltasone -) 20 mg PO DAILY [facility] Last Admin: 07/24/18 10:03 Dose: 20 mg - Objective Vital Signs: Vital Signs Temperature 97.7 F 07/24/18 13:59 Pulse Rate 88 07/24/18 13:59 Respiratory Rate 19 07/24/18 13:59 Blood Pressure 134/86 07/24/18 13:59 O2 Sat by Pulse Oximetry (%) 98 07/24/18 09:00 Constitutional: Yes: Calm Eyes: Yes: WNL HENT: Yes: WNL Neck: Yes: Decreased ROM Cardiovascular: Yes: S1 (varies in intensity), S2 Respiratory: Yes: Diminished, Tachypnea Gastrointestinal: Yes: Soft ...Rectal Exam: Yes: Deferred Genitourinary: No: Anuria Musculoskeletal: Yes: Muscle Weakness Extremities: Yes: Cool Edema: No Peripheral Pulses WNL: No Integumentary: Yes: Venous Stasis Changes Neurological: Yes: Alert, Oriented, Weakness Psychiatric: Yes: Alert, Oriented Labs: CBC, BMP 07/19/18 07:00 07/24/18 09:45 INR, PTT INR 2.08 (0.83-1.09) H 06/24/18 11:30 Problem List - Problems (1) Atrial flutter Assessment/Plan: On diltiazem CD 120 mg daily for HR control. Continue apixaban for anticoagulation. Replete electrolytes (K+, at 3.3, is low today). Code(s): I48.92 - UNSPECIFIED ATRIAL FLUTTER (2) CKD (chronic kidney disease) Assessment/Plan: BUN/Cr 91/1.5. On daily furosemide for CHF. Code(s): N18.9 - CHRONIC KIDNEY DISEASE, UNSPECIFIED Qualifiers: Chronic kidney disease stage: unspecified stage Qualified Code(s): N18.9 - Chronic kidney disease, unspecified (3) COPD exacerbation Assessment/Plan: hx exposure to 2nd hand smoke. Gives hx of "asthma". On bronchodilators, steroids, O2, Bipap per pulmonary (pt says he has oxygen at home, but not Bipap). Now off antibiotics. Code(s): J44.1 - CHRONIC OBSTRUCTIVE PULMONARY DISEASE W (ACUTE) EXACERBATION (4) Chronic diastolic CHF (congestive heart failure) Assessment/Plan: On hydralazine, diltiazem, and furosemide. F/u BUN/Cr, electrolytes (phosphorous level pending; replete K). CKD: avoid excessive dehydration. CXR 07/22: improved aeration; still with vascular congestion and pleural effusion. Is and Os; daily weights. Code(s): I50.32 - CHRONIC DIASTOLIC (CONGESTIVE) HEART FAILURE (5) GERD (gastroesophageal reflux disease) Code(s): K21.9 - GASTRO-ESOPHAGEAL REFLUX DISEASE WITHOUT ESOPHAGITIS (6) HTN (hypertension) Assessment/Plan: On diltiazem, , hydralazine and furosemide. Code(s): I10 - ESSENTIAL (PRIMARY) HYPERTENSION Qualifiers: Hypertension type: essential hypertension Qualified Code(s): I10 - Essential (primary) hypertension (7) Hypothyroidism Assessment/Plan: On sythroid; elevated TSH; normal free T4. Code(s): E03.9 - HYPOTHYROIDISM, UNSPECIFIED Qualifiers: Hypothyroidism type: unspecified Qualified Code(s): E03.9 - Hypothyroidism , unspecified (8) Renal dysfunction Assessment/Plan: On furosemide and metalazone, per asic verification engineer. Good urinary output. Code(s): N28.9 - DISORDER OF KIDNEY AND URETER, UNSPECIFIED (9) Pulmonary HTN Assessment/Plan: RVSP likely moderately severe (noted significant TR on ECHO, which also showed normal LVEF; moderately dilated RA, mildly dilated RV, borderline reduced RVEF, mild LAE, mild MR, moderate MN) Code(s): I27.20 - PULMONARY HYPERTENSION, UNSPECIFIED
[2018-07-24 15:20] LABS: PHOSPHOROUS 2.9 mg/dL (2.5-4.9)
[2018-07-24] MEDS ORDERED: ALBUTEROL SO4 0.083% IH SOL 2.5 MG/3 ML VIAL.NEB. NEB PRN (17:17)
--- NOTE | 2018-07-24 21:02 | PN ---
Progress Note (short form) - Note Progress Note: Renal follow up for ANNALISA Pt seen and examined at the bedside required BIPAP to be restarted mid-day because of SOB denies any CP, Abd pain, N/V/D reports making urine Vital Signs Temperature 97.4 F L 07/24/18 17:00 Pulse Rate 76 07/24/18 17:00 Respiratory Rate 18 07/24/18 17:00 Blood Pressure 130/83 07/24/18 17:00 O2 Sat by Pulse Oximetry (%) 97 07/24/18 15:15 Intake & Output 07/21/18 07/22/18 07/23/18 07/24/18 23:59 23:59 23:59 23:59 Intake Total 149 674 6217 640 Output Total 350 1250 1800 400 Balance 170 -470 -100 240 Weight 75.92 kg 74.162 kg 73.845 kg 73.301 kg NAD on BIPAP RRR Dec BS b/l Lung ribera no LE edema CBC, BMP 07/19/18 07:00 07/24/18 09:45 Current Medications Acetaminophen (Tylenol -) 650 mg PO Q6H PRN PRN Reason: PAIN LEVEL 1-5 Last Admin: 07/23/18 22:04 Dose: 650 mg Albuterol Sulfate (Ventolin 0.083% Nebulizer Soln -) 1 amp NEB Q4H PRN PRN Reason: SHORT OF BREATH/WHEEZING Albuterol/Ipratropium (Duoneb -) 1 amp NEB RQID [facility] Apixaban (Eliquis -) 2.5 mg PO BID [facility] Last Admin: 07/24/18 10:03 Dose: 2.5 mg Atorvastatin Calcium (Lipitor -) 10 mg PO HS [facility] Last Admin: 07/23/18 22:04 Dose: 10 mg Budesonide/Formoterol Fumarate (Symbicort 80/4.5mcg -) 2 puff IH BID [facility] Last Admin: 07/24/18 10:04 Dose: 2 puff Clotrimazole (Lotrimin 1% Cream -) 1 applic TP BID [facility] Last Admin: 07/24/18 10:04 Dose: 1 applic Diltiazem HCl (Cardizem Cd -) 120 mg PO DAILY [facility] Last Admin: 07/24/18 10:03 Dose: 120 mg Furosemide (Lasix Injection -) 40 mg IVPUSH DAILY [facility] Last Admin: 07/24/18 10:03 Dose: 40 mg Hydralazine HCl (Apresoline -) 50 mg PO TID [facility] Last Admin: 07/24/18 13:51 Dose: 50 mg Levothyroxine Sodium (Synthroid -) 75 mcg PO DAILY@0700 [facility] Last Admin: 07/24/18 06:07 Dose: 75 mcg Multivitamins/Minerals/Vitamin C (Tab-A-Vit -) 1 tab PO DAILY [facility] Last Admin: 07/24/18 10:03 Dose: 1 tab Pantoprazole Sodium (Protonix -) 40 mg PO DAILY [facility] Last Admin: 07/24/18 10:03 Dose: 40 mg Potassium Chloride (Potassium Chloride Oral Liquid) 40 meq PO DAILY [facility] Last Admin: 07/24/18 10:03 Dose: 40 meq Prednisone (Deltasone -) 20 mg PO DAILY [facility] Last Admin: 07/24/18 10:03 Dose: 20 mg 82 year old AA gentleman with history of CKD, Hyperlipidemia, CHF, COPD, Afib, Hypothyroidism who presented with SOB and Fever and found to have PNA + CHF and developed ANNALISA. #ANNALISA on CKD #CKD #PNA #CHF improving #COPD/Reactive airway disease #Anemia #Gallstones/Gallbladder wall thickening renal function slightly improved with decreased frequency of IV Lasix pt requiring BIPAP again, ? if volume status worsening but no peipheral edema continue steroids as per pulmonary repeat CXR in AM, if congestion worsens will increase frequency of diuretics Trend renal function and electrolytes Pravin Veras DO
[2018-07-24] MEDS: ALBUTEROL SO4 2.5/IPRATROPIUM 0.5 INH SOL 3 ML VIAL.NEB. NEB SCH (21:03)
[2018-07-24] MEDS: ATORVASTATIN CA 10 MG TABLET (FP) PO SCH (22:08)
--- NOTE | 2018-07-24 22:08 | PN ---
Progress Note (short form) - Note Progress Note: Progress Note (short form) - Note Progress Note: uses BIPAP with relief breathing labored prior to using BIPAP denies pain Vital Signs - 24 hr 07/24/18 07/24/18 07/24/18 02:00 06:00 07:56 Temperature 97.8 F 97.5 F L Pulse Rate 83 84 Respiratory 18 18 Rate Blood Pressure 124/58 L 130/82 O2 Sat by Pulse 96 Oximetry (%) 07/24/18 07/24/18 07/24/18 09:00 13:40 13:59 Temperature 97.7 F 97.7 F Pulse Rate 90 75 88 Respiratory 18 19 Rate Blood Pressure 144/89 128/75 134/86 O2 Sat by Pulse 98 Oximetry (%) 07/24/18 07/24/18 07/24/18 15:15 17:00 21:04 Temperature 97.4 F L Pulse Rate 76 Respiratory 18 Rate Blood Pressure 130/83 O2 Sat by Pulse 97 96 Oximetry (%) Current Medications Generic Name Dose Route Start Last Admin Trade Name Freq PRN Reason Stop Dose Admin Acetaminophen 650 mg 07/14/18 16:32 07/23/18 22:04 Tylenol - PO 650 mg Q6H PRN Administration PAIN LEVEL 1-5 Albuterol Sulfate 1 amp 07/24/18 17:17 Ventolin 0.083% Nebulizer Soln - NEB Q4H PRN SHORT OF BREATH/WHEEZING Albuterol/Ipratropium 1 amp 07/24/18 20:00 07/24/18 21:03 Duoneb - NEB 1 amp RQID [facility] Administration Apixaban 2.5 mg 07/14/18 22:00 07/24/18 10:03 Eliquis - PO 2.5 mg BID [facility] Administration Atorvastatin Calcium 10 mg 07/14/18 22:00 07/23/18 22:04 Lipitor - PO 10 mg HS [facility] Administration Budesonide/Formoterol Fumarate 2 puff 07/14/18 22:00 07/24/18 10:04 Symbicort 80/4.5mcg - IH 2 puff BID [facility] Administration Clotrimazole 1 applic 07/16/18 12:15 07/24/18 10:04 Lotrimin 1% Cream - TP 1 applic BID [facility] Administration Diltiazem HCl 120 mg 07/12/18 10:00 07/24/18 10:03 Cardizem Cd - PO 120 mg DAILY [facility] Administration Furosemide 40 mg 07/23/18 10:00 07/24/18 10:03 Lasix Injection - IVPUSH 40 mg DAILY [facility] Administration Hydralazine HCl 50 mg 07/14/18 22:00 07/24/18 13:51 Apresoline - PO 50 mg TID [facility] Administration Levothyroxine Sodium 75 mcg 07/15/18 07:00 07/24/18 06:07 Synthroid - PO 75 mcg DAILY@0700 [facility] Administration Multivitamins/Minerals/Vitamin C 1 tab 07/15/18 10:00 07/24/18 10:03 Tab-A-Vit - PO 1 tab DAILY [facility] Administration Pantoprazole Sodium 40 mg 07/15/18 10:00 07/24/18 10:03 Protonix - PO 40 mg DAILY [facility] Administration Potassium Chloride 40 meq 07/23/18 13:15 07/24/18 10:03 Potassium Chloride Oral Liquid PO 40 meq DAILY [facility] Administration Prednisone 20 mg 07/24/18 10:00 07/24/18 10:03 Deltasone - PO 20 mg DAILY [facility] Administration Laboratory Results - last 24 hr 07/24/18 09:45 Sodium 144 Potassium 3.3 L Chloride 91 L Carbon Dioxide 42 H Anion Gap 12 BUN 91 H Creatinine 1.5 H Creat Clearance w eGFR 44.59 Random Glucose 209 H Calcium 8.7 Phosphorus 2.9 Magnesium 2.5 H Physical Examination Constitutional: Yes: alert and awake Eyes: Yes: Conjunctiva Clear Neck: Yes: Supple, Other (no jvd) Cardiovascular: Yes: Pulse Irregular Respiratory: Yes: decreased breath sounds B/l , ronchi Gastrointestinal: Yes: Soft/ non tender . bowel sound present, no edema Neurological: Yes: Alert Psychiatric: Yes: Alert Assessment/Plan BIPAP as needed Continue present care Abx completed chest CT - -- congestion iv steroids monitor nebulizer treatment on lasix BID --> decrease to once daily-- worsening renal function Problem List - Problems (1) Respiratory failure with hypoxia Code(s): J96.91 - RESPIRATORY FAILURE, UNSPECIFIED WITH HYPOXIA (2) Chronic diastolic CHF (congestive heart failure) Code(s): I50.32 - CHRONIC DIASTOLIC (CONGESTIVE) HEART FAILURE (3) HTN (hypertension) Code(s): I10 - ESSENTIAL (PRIMARY) HYPERTENSION Qualifiers: Hypertension type: essential hypertension Qualified Code(s): I10 - Essential (primary) hypertension (4) Hypothyroidism Code(s): E03.9 - HYPOTHYROIDISM, UNSPECIFIED Qualifiers: Hypothyroidism type: unspecified Qualified Code(s): E03.9 - Hypothyroidism , unspecified (5) Paroxysmal A-fib Code(s): I48.0 - PAROXYSMAL ATRIAL FIBRILLATION
[2018-07-24] MEDS: ACETAMINOPHEN 325 MG TABLET (FP) PO PRN (22:18)
[2018-07-25] MEDS: hydrALAZINE HCL 50 MG TABLET (FP) PO SCH ×3 (06:37→21:48)
[2018-07-25] MEDS: LEVOTHYROXINE NA 75 MCG TABLET (FP) PO SCH (06:37)
[2018-07-25 07:49] LABS: BASO % 0.2 % (0-2.0); EOS % 0.3 % (0-4.5); HEMATOCRIT 32.8 % (35.4-49); HEMOGLOBIN 10.4 GM/dL (11.7-16.9); LYMPH % 1.6 % (8-40); MCH 26.1 pg (25.7-33.7); MCHC 31.8 g/dl (32.0-35.9); MEAN CELL VOLUME 82.2 fl (80-96); MEAN PLT VOLUME 7.2 fl (7.5-11.1); MONO % 7.7 % (3.8-10.2); NEUT % 90.2 % (42.8-82.8); PLATELET COUNT 350 K/MM3 (134-434); RBC 3.99 M/mm3 (4.00-5.60); RDW 23.2 % (11.9-15.9); WHITE BLOOD COUNT 19.7 K/mm3 (4.0-10.0)
[2018-07-25 08:17] LABS: ANION GAP 8 MMOL/L (8-16); BLOOD UREA NITROGEN 85 mg/dL (7-18); CALCIUM 8.6 mg/dL (8.5-10.1); CHLORIDE 95 mmol/L (98-107); CO2 38 mmol/L (21-32); CREATININE 1.3 mg/dL (0.55-1.3); GLUCOSE,RANDOM 144 mg/dL (74-106); MAGNESIUM 2.5 mg/dL (1.8-2.4); POTASSIUM 3.5 mmol/L (3.5-5.1); SODIUM 142 mmol/L (136-145)
[2018-07-25] MEDS: ALBUTEROL SO4 2.5/IPRATROPIUM 0.5 INH SOL 3 ML VIAL.NEB. NEB SCH ×4 (08:33→20:25)
[2018-07-25] MEDS ORDERED: PT OWN MED DRAWER 7, Y5N ONE ×4 (10:04→23:30)
[2018-07-25] MEDS: BUDESONIDE/FORMETEROL FUMARATE 80/4.5 mcg INHALER IH SCH ×2 (10:56→21:48)
[2018-07-25 10:57] LABS: ANISOCYTOSIS 1+; MACROCYTOSIS 1+; PLATELET ESTIMATE NORMAL; TARGET CELLS 1+
[2018-07-25] MEDS: PANTOPRAZOLE 40 MG TABLET (FP) PO SCH (10:57)
[2018-07-25] MEDS: MULTIVITAMINS (DAILY MVI) TABLET (FP) PO SCH (10:57)
[2018-07-25] MEDS: POTASSIUM CHLORIDE ORAL LIQUID 20 MEQ/15 ML PO SCH (10:57)
[2018-07-25] MEDS: FUROSEMIDE 40 MG/4 ML INJECTABLE VIAL IVPUSH SCH (10:57)
[2018-07-25] MEDS: CLOTRIMAZOLE 1% CREAM 15 GM TUBE TP SCH ×2 (10:57→21:48)
[2018-07-25] MEDS: predniSONE 20 MG TABLET (UD) PO SCH (10:57)
[2018-07-25] MEDS: APIXABAN 2.5 MG TABLET PO SCH ×2 (10:57→21:49)
[2018-07-25] MEDS: ACETAMINOPHEN 325 MG TABLET (FP) PO PRN (11:19)
--- NOTE | 2018-07-25 11:26 | PN ---
Progress Note, Physician History of Present Illness: Patient is a 82 year old male was sent from [facility] for worsening SOB. Patient reports that since many years he has had SOB due to COPD, has been on Oxygen intermittently for 6 yrs but since October,, has been using continuously. Since few days before admission, he had SOB, worsening, associated with wheezing, cough. It was productive, yellowish sputum. Denies chest pain, palpitation, abdominal pain, nausea or vomiting. Bowel/Bladder habit normal. Bowel movement was yesterday. Sleep/Appetite normal. 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 Smoking: Quit in 1955, smoked for 15 yrs, < 1pack/day Alcohol: Occasional quit years ago Drugs: Denies - Current Medication List Current Medications: Active Medications Acetaminophen (Tylenol -) 650 mg PO Q6H PRN PRN Reason: PAIN LEVEL 1-5 Last Admin: 07/25/18 11:19 Dose: 650 mg Albuterol Sulfate (Ventolin 0.083% Nebulizer Soln -) 1 amp NEB Q4H PRN PRN Reason: SHORT OF BREATH/WHEEZING Albuterol/Ipratropium (Duoneb -) 1 amp NEB RQID [facility] Last Admin: 07/25/18 08:33 Dose: 1 amp Apixaban (Eliquis -) 2.5 mg PO BID [facility] Last Admin: 07/25/18 10:57 Dose: 2.5 mg Atorvastatin Calcium (Lipitor -) 10 mg PO HS [facility] Last Admin: 07/24/18 22:08 Dose: 10 mg Budesonide/Formoterol Fumarate (Symbicort 80/4.5mcg -) 2 puff IH BID [facility] Last Admin: 07/25/18 10:56 Dose: 2 puff Clotrimazole (Lotrimin 1% Cream -) 1 applic TP BID [facility] Last Admin: 07/25/18 10:57 Dose: 1 applic Diltiazem HCl (Cardizem Cd -) 120 mg PO DAILY [facility] Last Admin: 07/25/18 10:57 Dose: 120 mg Furosemide (Lasix Injection -) 40 mg IVPUSH DAILY [facility] Last Admin: 07/25/18 10:57 Dose: 40 mg Hydralazine HCl (Apresoline -) 50 mg PO TID [facility] Last Admin: 07/25/18 06:37 Dose: 50 mg Levothyroxine Sodium (Synthroid -) 75 mcg PO DAILY@0700 [facility] Last Admin: 07/25/18 06:37 Dose: 75 mcg Multivitamins/Minerals/Vitamin C (Tab-A-Vit -) 1 tab PO DAILY [facility] Last Admin: 07/25/18 10:57 Dose: 1 tab Pantoprazole Sodium (Protonix -) 40 mg PO DAILY [facility] Last Admin: 07/25/18 10:57 Dose: 40 mg Potassium Chloride (Potassium Chloride Oral Liquid) 40 meq PO DAILY [facility] Last Admin: 07/25/18 10:57 Dose: 40 meq Prednisone (Deltasone -) 20 mg PO DAILY [facility] Last Admin: 07/25/18 10:57 Dose: 20 mg - Objective Vital Signs: Vital Signs Temperature 98.1 F 07/25/18 06:00 Pulse Rate 75 07/25/18 06:00 Respiratory Rate 18 07/25/18 06:00 Blood Pressure 141/90 07/25/18 06:00 O2 Sat by Pulse Oximetry (%) 95 07/25/18 08:32 Eyes: Yes: WNL, Conjunctiva Clear, EOM Intact HENT: Yes: WNL, Atraumatic, Normocephalic Neck: Yes: WNL, Supple, Trachea Midline Cardiovascular: Yes: Pulse Irregular, S1, S2 Respiratory: Yes: WNL, Regular, CTA Bilaterally Gastrointestinal: Yes: WNL, Normal Bowel Sounds Genitourinary: Yes: WNL Musculoskeletal: Yes: WNL Extremities: Yes: WNL Edema: No Integumentary: Yes: WNL Neurological: Yes: WNL, Alert, Oriented ...Motor Strength: WNL Psychiatric: Yes: WNL Labs: CBC, BMP 07/25/18 06:20 07/25/18 06:20 INR, PTT INR 2.08 (0.83-1.09) H 06/24/18 11:30 Assessment/Plan - Problems (1) Atrial flutter Assessment/Plan: On diltiazem CD 120 mg daily for HR control. Continue apixaban for anticoagulation. Replete electrolytes (K+, at 3.3, is low today). Code(s): I48.92 - UNSPECIFIED ATRIAL FLUTTER (2) CKD (chronic kidney disease) Assessment/Plan: BUN/Cr 91/1.5. On daily furosemide for CHF. Code(s): N18.9 - CHRONIC KIDNEY DISEASE, UNSPECIFIED Qualifiers: Chronic kidney disease stage: unspecified stage Qualified Code(s): N18.9 - Chronic kidney disease, unspecified (3) COPD exacerbation Assessment/Plan: hx exposure to 2nd hand smoke. Gives hx of "asthma". On bronchodilators, steroids, O2, Bipap per pulmonary (pt says he has oxygen at home, but not Bipap). Now off antibiotics. Code(s): J44.1 - CHRONIC OBSTRUCTIVE PULMONARY DISEASE W (ACUTE) EXACERBATION (4) Chronic diastolic CHF (congestive heart failure) Assessment/Plan: On hydralazine, diltiazem, and furosemide. F/u BUN/Cr, electrolytes (phosphorous level pending; replete K). CKD: avoid excessive dehydration. CXR 07/22: improved aeration; still with vascular congestion and pleural effusion. Is and Os; daily weights. Code(s): I50.32 - CHRONIC DIASTOLIC (CONGESTIVE) HEART FAILURE (5) GERD (gastroesophageal reflux disease) Code(s): K21.9 - GASTRO-ESOPHAGEAL REFLUX DISEASE WITHOUT ESOPHAGITIS (6) HTN (hypertension) Assessment/Plan: On diltiazem, , hydralazine and furosemide. Code(s): I10 - ESSENTIAL (PRIMARY) HYPERTENSION Qualifiers: Hypertension type: essential hypertension Qualified Code(s): I10 - Essential (primary) hypertension (7) Hypothyroidism Assessment/Plan: On sythroid; elevated TSH; normal free T4. Code(s): E03.9 - HYPOTHYROIDISM, UNSPECIFIED Qualifiers: Hypothyroidism type: unspecified Qualified Code(s): E03.9 - Hypothyroidism , unspecified (8) Renal dysfunction Assessment/Plan: On furosemide and metalazone, per power and recovery shift engineer. Good urinary output. Code(s): N28.9 - DISORDER OF KIDNEY AND URETER, UNSPECIFIED (9) Pulmonary HTN Assessment/Plan: RVSP likely moderately severe (noted significant TR on ECHO, which also showed normal LVEF; moderately dilated RA, mildly dilated RV, borderline reduced RVEF, mild LAE, mild MR, moderate AR) Code(s): I27.20 - PULMONARY HYPERTENSION, UNSPECIFIED
--- NOTE | 2018-07-25 12:41 | PN ---
Progress Note, Physician History of Present Illness: pulmonary alert,feeling better,less dyspneic. + low grade temp last night 100.5 - Current Medication List Current Medications: Active Medications Acetaminophen (Tylenol -) 650 mg PO Q6H PRN PRN Reason: PAIN LEVEL 1-5 Last Admin: 07/25/18 11:19 Dose: 650 mg Albuterol Sulfate (Ventolin 0.083% Nebulizer Soln -) 1 amp NEB Q4H PRN PRN Reason: SHORT OF BREATH/WHEEZING Albuterol/Ipratropium (Duoneb -) 1 amp NEB RQID [facility] Last Admin: 07/25/18 11:58 Dose: 1 amp Apixaban (Eliquis -) 2.5 mg PO BID [facility] Last Admin: 07/25/18 10:57 Dose: 2.5 mg Atorvastatin Calcium (Lipitor -) 10 mg PO HS [facility] Last Admin: 07/24/18 22:08 Dose: 10 mg Budesonide/Formoterol Fumarate (Symbicort 80/4.5mcg -) 2 puff IH BID [facility] Last Admin: 07/25/18 10:56 Dose: 2 puff Clotrimazole (Lotrimin 1% Cream -) 1 applic TP BID [facility] Last Admin: 07/25/18 10:57 Dose: 1 applic Diltiazem HCl (Cardizem Cd -) 120 mg PO DAILY [facility] Last Admin: 07/25/18 10:57 Dose: 120 mg Furosemide (Lasix Injection -) 40 mg IVPUSH DAILY [facility] Last Admin: 07/25/18 10:57 Dose: 40 mg Hydralazine HCl (Apresoline -) 50 mg PO TID [facility] Last Admin: 07/25/18 06:37 Dose: 50 mg Levothyroxine Sodium (Synthroid -) 75 mcg PO DAILY@0700 [facility] Last Admin: 07/25/18 06:37 Dose: 75 mcg Multivitamins/Minerals/Vitamin C (Tab-A-Vit -) 1 tab PO DAILY [facility] Last Admin: 07/25/18 10:57 Dose: 1 tab Pantoprazole Sodium (Protonix -) 40 mg PO DAILY [facility] Last Admin: 07/25/18 10:57 Dose: 40 mg Potassium Chloride (Potassium Chloride Oral Liquid) 40 meq PO DAILY [facility] Last Admin: 07/25/18 10:57 Dose: 40 meq Prednisone (Deltasone -) 20 mg PO DAILY [facility] Last Admin: 07/25/18 10:57 Dose: 20 mg - Objective Vital Signs: Vital Signs Temperature 98.1 F 07/25/18 06:00 Pulse Rate 75 07/25/18 06:00 Respiratory Rate 18 07/25/18 06:00 Blood Pressure 141/90 07/25/18 06:00 O2 Sat by Pulse Oximetry (%) 95 07/25/18 08:32 Constitutional: Yes: Well Nourished, Calm Eyes: Yes: WNL HENT: Yes: WNL Neck: Yes: WNL Cardiovascular: Yes: Regular Rate and Rhythm, S1, S2 Respiratory: Yes: Rales, Rhonchi (bibasailar rales,scattered rhonchi) Gastrointestinal: Yes: Normal Bowel Sounds, Soft Extremities: Yes: WNL Edema: Yes Labs: CBC, BMP 07/25/18 06:20 07/25/18 06:20 INR, PTT INR 2.08 (0.83-1.09) H 06/24/18 11:30 Assessment/Plan ASSESSMENT AND PLAN: Acute on Chronic Hypoxic Respiratory Failure improving Pneumonia CHF Acute Kidney Injury Acute COPD Exacerbation Acute on Chronic Diastolic Heart Failure Pulmonary HTN Atrial Flutter with RVR HTN Hyperlipidemia Hypothyroidism - inhaled bronchodilators standing and PRN - iv lasix - NIPPV as needed - taper FiO2 to keep SpO2>90% - rate control - anticoagulation - monitor urine output, creatinine - steroid taper DR MENDOZA
--- NOTE | 2018-07-25 13:12 | PN ---
Progress Note (short form) - Note Progress Note: Progress Note (short form) - Note Progress Note: uses BIPAP with relief pt now sitting up for lunch , he appears better- not too much SOB on 4 liters NC states he is fine Vital Signs - 24 hr 07/24/18 07/24/18 07/24/18 13:40 13:59 15:15 Temperature 97.7 F Pulse Rate 75 88 Respiratory 19 Rate Blood Pressure 128/75 134/86 O2 Sat by Pulse 97 Oximetry (%) 07/24/18 07/24/18 07/24/18 17:00 21:00 21:04 Temperature 97.4 F L 100.5 F H Pulse Rate 76 92 H Respiratory 18 18 Rate Blood Pressure 130/83 143/87 O2 Sat by Pulse 97 96 Oximetry (%) 07/24/18 07/25/18 07/25/18 23:30 02:00 06:00 Temperature 97.4 F L 98.1 F Pulse Rate 76 75 Respiratory 18 18 Rate Blood Pressure 127/82 141/90 O2 Sat by Pulse 97 Oximetry (%) 07/25/18 08:32 Temperature Pulse Rate Respiratory Rate Blood Pressure O2 Sat by Pulse 95 Oximetry (%) Current Medications Generic Name Dose Route Start Last Admin Trade Name Freq PRN Reason Stop Dose Admin Acetaminophen 650 mg 07/14/18 16:32 07/25/18 11:19 Tylenol - PO 650 mg Q6H PRN Administration PAIN LEVEL 1-5 Albuterol Sulfate 1 amp 07/24/18 17:17 Ventolin 0.083% Nebulizer Soln - NEB Q4H PRN SHORT OF BREATH/WHEEZING Albuterol/Ipratropium 1 amp 07/24/18 20:00 07/25/18 11:58 Duoneb - NEB 1 amp RQID [facility] Administration Apixaban 2.5 mg 07/14/18 22:00 07/25/18 10:57 Eliquis - PO 2.5 mg BID [facility] Administration Atorvastatin Calcium 10 mg 07/14/18 22:00 07/24/18 22:08 Lipitor - PO 10 mg HS [facility] Administration Budesonide/Formoterol Fumarate 2 puff 07/14/18 22:00 07/25/18 10:56 Symbicort 80/4.5mcg - IH 2 puff BID [facility] Administration Clotrimazole 1 applic 07/16/18 12:15 07/25/18 10:57 Lotrimin 1% Cream - TP 1 applic BID [facility] Administration Diltiazem HCl 120 mg 07/12/18 10:00 07/25/18 10:57 Cardizem Cd - PO 120 mg DAILY [facility] Administration Furosemide 40 mg 07/23/18 10:00 07/25/18 10:57 Lasix Injection - IVPUSH 40 mg DAILY [facility] Administration Hydralazine HCl 50 mg 07/14/18 22:00 07/25/18 06:37 Apresoline - PO 50 mg TID [facility] Administration Levothyroxine Sodium 75 mcg 07/15/18 07:00 07/25/18 06:37 Synthroid - PO 75 mcg DAILY@0700 [facility] Administration Multivitamins/Minerals/Vitamin C 1 tab 07/15/18 10:00 07/25/18 10:57 Tab-A-Vit - PO 1 tab DAILY [facility] Administration Pantoprazole Sodium 40 mg 07/15/18 10:00 07/25/18 10:57 Protonix - PO 40 mg DAILY [facility] Administration Potassium Chloride 40 meq 07/23/18 13:15 07/25/18 10:57 Potassium Chloride Oral Liquid PO 40 meq DAILY [facility] Administration Prednisone 20 mg 07/24/18 10:00 07/25/18 10:57 Deltasone - PO 20 mg DAILY [facility] Administration Laboratory Results - last 24 hr 07/24/18 07/25/18 07/25/18 09:45 06:20 06:20 WBC 19.7 H RBC 3.99 L Hgb 10.4 L Hct 32.8 L MCV 82.2 MCH 26.1 MCHC 31.8 L RDW 23.2 H Plt Count 350 MPV 7.2 L Absolute Neuts (auto) 17.7 H Neutrophils % 90.2 H Neutrophils % (Manual) 92.0 H Band Neutrophils % 1.0 Lymphocytes % 1.6 L D Lymphocytes % (Manual) 1.0 L D Monocytes % 7.7 Monocytes % (Manual) 4 D Eosinophils % 0.3 D Eosinophils % (Manual) 1.0 D Basophils % 0.2 Basophils % (Manual) 0.0 Myelocytes % (Man) 1 Promyelocytes % (Man) 0 Blast Cells % (Manual) 0 Nucleated RBC % 0 Metamyelocytes 0 Hypochromia 1+ Platelet Estimate Normal Polychromasia 0 Poikilocytosis 0 Anisocytosis 1+ Microcytosis 1+ Macrocytosis 1+ Target Cells 1+ Sodium 144 142 Potassium 3.3 L 3.5 Chloride 91 L 95 L Carbon Dioxide 42 H 38 H Anion Gap 12 8 BUN 91 H 85 H Creatinine 1.5 H 1.3 Creat Clearance w eGFR 44.59 52.59 Random Glucose 209 H 144 H Calcium 8.7 8.6 Phosphorus 2.9 Magnesium 2.5 H 2.5 H Physical Examination Constitutional: Yes: alert and awake Eyes: Yes: Conjunctiva Clear Neck: Yes: Supple, Other (no jvd) Cardiovascular: Yes: Pulse Irregular Respiratory: Yes: decreased breath sounds B/l Gastrointestinal: Yes: Soft/ non tender . bowel sound present, no edema Neurological: Yes: Alert Psychiatric: Yes: Alert Assessment/Plan BIPAP as needed during the day and scheduled for PM Continue present care Abx completed chest CT - -- congestion clinically better iv steroids-->changed to PO monitor nebulizer treatment spoke with Pulmonary and Renal - may change to PO torsemide tomorrow possible dc tomorrow Problem List - Problems (1) Respiratory failure with hypoxia Code(s): J96.91 - RESPIRATORY FAILURE, UNSPECIFIED WITH HYPOXIA (2) Chronic diastolic CHF (congestive heart failure) Code(s): I50.32 - CHRONIC DIASTOLIC (CONGESTIVE) HEART FAILURE (3) HTN (hypertension) Code(s): I10 - ESSENTIAL (PRIMARY) HYPERTENSION Qualifiers: Hypertension type: essential hypertension Qualified Code(s): I10 - Essential (primary) hypertension (4) Hypothyroidism Code(s): E03.9 - HYPOTHYROIDISM, UNSPECIFIED Qualifiers: Hypothyroidism type: unspecified Qualified Code(s): E03.9 - Hypothyroidism , unspecified (5) Paroxysmal A-fib Code(s): I48.0 - PAROXYSMAL ATRIAL FIBRILLATION
[2018-07-25] MEDS ORDERED: FUROSEMIDE 40 MG/4 ML INJECTABLE VIAL IVPUSH ONE (14:00)
[2018-07-25] MEDS ORDERED: FUROSEMIDE 40 MG/4 ML INJECTABLE VIAL ONE (14:24)
--- NOTE | 2018-07-25 15:00 | PN ---
Progress Note, PERSONAL FINANCIAL ADVISOR - Note Progress Note: Selected Entries 07/24/18 07/24/18 07/24/18 02:00 06:00 09:00 Breakfast Lunch Supper Temperature 97.8 F 97.5 F L 97.7 F 07/24/18 07/24/18 07/24/18 13:59 14:42 17:00 Breakfast 75% Lunch 75% Supper Temperature 97.7 F 97.4 F L 07/24/18 07/24/18 07/25/18 19:11 21:00 02:00 Breakfast Lunch Supper 75% Temperature 100.5 F H 97.4 F L 07/25/18 06:00 Breakfast Lunch Supper Temperature 98.1 F
[2018-07-25] MEDS: ATORVASTATIN CA 10 MG TABLET (FP) PO SCH (21:48)
[2018-07-26] MEDS: LEVOTHYROXINE NA 75 MCG TABLET (FP) PO SCH (07:00)
[2018-07-26] MEDS: hydrALAZINE HCL 50 MG TABLET (FP) PO SCH ×3 (07:00→21:51)
[2018-07-26] MEDS: ALBUTEROL SO4 2.5/IPRATROPIUM 0.5 INH SOL 3 ML VIAL.NEB. NEB SCH ×4 (07:20→20:27)
[2018-07-26] MEDS ORDERED: PT OWN MED DRAWER 7, Y5N ONE ×4 (10:34→22:44)
[2018-07-26] MEDS: predniSONE 20 MG TABLET (UD) PO SCH (10:58)
[2018-07-26] MEDS: TORSEMIDE 20 MG TABLET (FP) PO SCH (10:58)
[2018-07-26] MEDS: APIXABAN 2.5 MG TABLET PO SCH ×2 (10:58→22:30)
[2018-07-26] MEDS: POTASSIUM CHLORIDE ORAL LIQUID 20 MEQ/15 ML PO SCH (10:59)
[2018-07-26] MEDS: PANTOPRAZOLE 40 MG TABLET (FP) PO SCH (11:00)
[2018-07-26] MEDS: MULTIVITAMINS (DAILY MVI) TABLET (FP) PO SCH (11:00)
[2018-07-26] MEDS: BUDESONIDE/FORMETEROL FUMARATE 80/4.5 mcg INHALER IH SCH ×2 (11:10→21:51)
[2018-07-26] MEDS: CLOTRIMAZOLE 1% CREAM 15 GM TUBE TP SCH ×2 (11:10→21:52)
--- NOTE | 2018-07-26 11:21 | PN ---
Progress Note, Physician Chief Complaint: Pt alert; wants to return home ([facility]); denies having pain or dyspnea. History of Present Illness: Father Eula is an 82 black man with PMH of COPD, a-fib (Eliquis), CKD, HLD, HTN, diastolic CHF with reduced RVEF, moderately severe pulmonary HTN,and hypothyroidism, who presents from his correction ([facility]) with worsening shortness of breath, fever (Tm 101.6), and hypoxia despite 3L NC. On arrival, the patient endorses worsening dyspnea and productive cough. He also reports chronic abdominal pain 2/2 hiatal hernia. Patient denies MCGRATH, acute vision change, chest pain, BLE swelling, or changes in sensation. - Current Medication List Current Medications: Active Medications Acetaminophen (Tylenol -) 650 mg PO Q6H PRN PRN Reason: PAIN LEVEL 1-5 Last Admin: 07/25/18 11:19 Dose: 650 mg Albuterol Sulfate (Ventolin 0.083% Nebulizer Soln -) 1 amp NEB Q4H PRN PRN Reason: SHORT OF BREATH/WHEEZING Albuterol/Ipratropium (Duoneb -) 1 amp NEB RQID [facility] Last Admin: 07/26/18 07:20 Dose: 1 amp Apixaban (Eliquis -) 2.5 mg PO BID [facility] Last Admin: 07/26/18 10:58 Dose: 2.5 mg Atorvastatin Calcium (Lipitor -) 10 mg PO HS [facility] Last Admin: 07/25/18 21:48 Dose: 10 mg Budesonide/Formoterol Fumarate (Symbicort 80/4.5mcg -) 2 puff IH BID [facility] Last Admin: 07/25/18 21:48 Dose: 2 puff Clotrimazole (Lotrimin 1% Cream -) 1 applic TP BID [facility] Last Admin: 07/25/18 21:48 Dose: 1 applic Diltiazem HCl (Cardizem Cd -) 120 mg PO DAILY [facility] Last Admin: 07/26/18 10:58 Dose: 120 mg Hydralazine HCl (Apresoline -) 50 mg PO TID [facility] Last Admin: 07/26/18 07:00 Dose: 50 mg Levothyroxine Sodium (Synthroid -) 75 mcg PO DAILY@0700 [facility] Last Admin: 07/26/18 07:00 Dose: 75 mcg Multivitamins/Minerals/Vitamin C (Tab-A-Vit -) 1 tab PO DAILY [facility] Last Admin: 07/26/18 11:00 Dose: 1 tab Pantoprazole Sodium (Protonix -) 40 mg PO DAILY [facility] Last Admin: 07/26/18 11:00 Dose: 40 mg Potassium Chloride (Potassium Chloride Oral Liquid) 40 meq PO DAILY [facility] Last Admin: 07/26/18 10:59 Dose: 40 meq Prednisone (Deltasone -) 20 mg PO DAILY [facility] Last Admin: 07/26/18 10:58 Dose: 20 mg Torsemide (Demadex -) 80 mg PO DAILY [facility] Last Admin: 07/26/18 10:58 Dose: 80 mg - Objective Vital Signs: Vital Signs Temperature 97.5 F L 07/26/18 06:00 Pulse Rate 64 07/26/18 09:41 Respiratory Rate 19 07/26/18 09:41 Blood Pressure 137/39 L 07/26/18 09:41 O2 Sat by Pulse Oximetry (%) 98 07/26/18 08:22 Constitutional: Yes: Anxious, Thin Eyes: Yes: WNL HENT: Yes: WNL Neck: Yes: WNL Cardiovascular: Yes: Tachycardia, Pulse Irregular, S1 (varies in intensity), S2 Respiratory: Yes: Diminished, Tachypnea Gastrointestinal: Yes: Soft ...Rectal Exam: Yes: Deferred Genitourinary: No: Anuria Musculoskeletal: Yes: Muscle Weakness Extremities: Yes: Cool Edema: No Peripheral Pulses WNL: Yes Integumentary: Yes: WNL Neurological: Yes: Alert, Oriented, Weakness Psychiatric: Yes: Alert, Oriented Labs: CBC, BMP 07/25/18 06:20 07/25/18 06:20 INR, PTT INR 2.08 (0.83-1.09) H 06/24/18 11:30 - ....Imaging Chest X-ray: Pending Problem List - Problems (1) Atrial flutter Assessment/Plan: On diltiazem CD 120 mg daily for HR control. Continue apixaban for anticoagulation. K+ repleted; 3.9 today. Code(s): I48.92 - UNSPECIFIED ATRIAL FLUTTER (2) CKD (chronic kidney disease) Assessment/Plan: On daily furosemide for CHF. Code(s): N18.9 - CHRONIC KIDNEY DISEASE, UNSPECIFIED Qualifiers: Chronic kidney disease stage: unspecified stage Qualified Code(s): N18.9 - Chronic kidney disease, unspecified (3) COPD exacerbation Assessment/Plan: hx exposure to 2nd hand smoke. Gives hx of "asthma". On bronchodilators, steroids, O2, Bipap per pulmonary (pt says he has oxygen at home, but not Bipap). Now off antibiotics. Code(s): J44.1 - CHRONIC OBSTRUCTIVE PULMONARY DISEASE W (ACUTE) EXACERBATION (4) Chronic diastolic CHF (congestive heart failure) Assessment/Plan: On hydralazine, diltiazem, and furosemide. F/u BUN/Cr, electrolytes (phosphorous level pending; repleted K). CKD: avoid excessive dehydration (on Demedex).. CXR 07/22: improved aeration; still with vascular congestion and pleural effusion; 07/25 CXR shows little change from this reading. Is and Os; daily weights. Code(s): I50.32 - CHRONIC DIASTOLIC (CONGESTIVE) HEART FAILURE (5) GERD (gastroesophageal reflux disease) Code(s): K21.9 - GASTRO-ESOPHAGEAL REFLUX DISEASE WITHOUT ESOPHAGITIS (6) HTN (hypertension) Code(s): I10 - ESSENTIAL (PRIMARY) HYPERTENSION Qualifiers: Hypertension type: essential hypertension Qualified Code(s): I10 - Essential (primary) hypertension (7) Hypothyroidism Code(s): E03.9 - HYPOTHYROIDISM, UNSPECIFIED Qualifiers: Hypothyroidism type: unspecified Qualified Code(s): E03.9 - Hypothyroidism , unspecified (8) Renal dysfunction Code(s): N28.9 - DISORDER OF KIDNEY AND URETER, UNSPECIFIED (9) Pulmonary HTN Code(s): I27.20 - PULMONARY HYPERTENSION, UNSPECIFIED
--- NOTE | 2018-07-26 11:48 | PN ---
Progress Note (short form) - Note Progress Note: PULMONARY Breathing better today. No cough or wheezing. Vital Signs Period Temp Pulse Resp BP Sys/[place] Pulse Ox Last 24 Hr 97.5 F-98.7 F 64-100 19-20 118-140/39-89 97-99 Gen: NAD at rest Heart: RRR Lung: distant breath sounds Abd: soft, nontender Ext: no edema CBC, BMP 07/25/18 06:20 07/25/18 06:20 Active Medications Acetaminophen (Tylenol -) 650 mg PO Q6H PRN PRN Reason: PAIN LEVEL 1-5 Last Admin: 07/25/18 11:19 Dose: 650 mg Albuterol Sulfate (Ventolin 0.083% Nebulizer Soln -) 1 amp NEB Q4H PRN PRN Reason: SHORT OF BREATH/WHEEZING Albuterol/Ipratropium (Duoneb -) 1 amp NEB RQID [facility] Last Admin: 07/26/18 07:20 Dose: 1 amp Apixaban (Eliquis -) 2.5 mg PO BID [facility] Last Admin: 07/26/18 10:58 Dose: 2.5 mg Atorvastatin Calcium (Lipitor -) 10 mg PO HS [facility] Last Admin: 07/25/18 21:48 Dose: 10 mg Budesonide/Formoterol Fumarate (Symbicort 80/4.5mcg -) 2 puff IH BID [facility] Last Admin: 07/26/18 11:10 Dose: 2 puff Clotrimazole (Lotrimin 1% Cream -) 1 applic TP BID [facility] Last Admin: 07/26/18 11:10 Dose: 1 applic Diltiazem HCl (Cardizem Cd -) 120 mg PO DAILY [facility] Last Admin: 07/26/18 10:58 Dose: 120 mg Hydralazine HCl (Apresoline -) 50 mg PO TID [facility] Last Admin: 07/26/18 07:00 Dose: 50 mg Levothyroxine Sodium (Synthroid -) 75 mcg PO DAILY@0700 [facility] Last Admin: 07/26/18 07:00 Dose: 75 mcg Multivitamins/Minerals/Vitamin C (Tab-A-Vit -) 1 tab PO DAILY [facility] Last Admin: 07/26/18 11:00 Dose: 1 tab Pantoprazole Sodium (Protonix -) 40 mg PO DAILY [facility] Last Admin: 07/26/18 11:00 Dose: 40 mg Potassium Chloride (Potassium Chloride Oral Liquid) 40 meq PO DAILY [facility] Last Admin: 07/26/18 10:59 Dose: 40 meq Prednisone (Deltasone -) 20 mg PO DAILY [facility] Last Admin: 07/26/18 10:58 Dose: 20 mg Torsemide (Demadex -) 80 mg PO DAILY [facility] Last Admin: 07/26/18 10:58 Dose: 80 mg A/P Acute on Chronic Hypoxic Respiratory Failure improving Pneumonia Acute Kidney Injury resolving Acute COPD Exacerbation Acute on Chronic Diastolic Heart Failure Pulmonary HTN Atrial Flutter with RVR HTN Hyperlipidemia Hypothyroidism - completed antibiotics - prednisone taper - inhaled bronchodilators standing and PRN - lasix as needed - taper FiO2 to keep SpO2>90% - rate control - anticoagulation - monitor urine output, creatinine
--- NOTE | 2018-07-26 12:17 | PN ---
Progress Note (short form) - Note Progress Note: Progress Note (short form) - Note Progress Note: uses BIPAP with relief on 4 liters NC states he is fine Vital Signs - 24 hr 07/25/18 07/25/18 07/25/18 16:32 18:50 21:08 Temperature 98.7 F 97.8 F Pulse Rate 78 94 H Respiratory 20 20 Rate Blood Pressure 140/79 118/68 O2 Sat by Pulse 97 Oximetry (%) 07/26/18 07/26/18 07/26/18 00:11 02:00 06:00 Temperature 97.9 F 97.5 F L Pulse Rate 100 H 92 H 95 H Respiratory 20 20 Rate Blood Pressure 132/89 129/75 O2 Sat by Pulse 99 Oximetry (%) 07/26/18 07/26/18 08:22 09:41 Temperature Pulse Rate 90 64 Respiratory 19 Rate Blood Pressure 137/39 L O2 Sat by Pulse 98 Oximetry (%) Current Medications Generic Name Dose Route Start Last Admin Trade Name Freq PRN Reason Stop Dose Admin Acetaminophen 650 mg 07/14/18 16:32 07/25/18 11:19 Tylenol - PO 650 mg Q6H PRN Administration PAIN LEVEL 1-5 Albuterol Sulfate 1 amp 07/24/18 17:17 Ventolin 0.083% Nebulizer Soln - NEB Q4H PRN SHORT OF BREATH/WHEEZING Albuterol/Ipratropium 1 amp 07/24/18 20:00 07/26/18 11:51 Duoneb - NEB 1 amp RQID JAGDEEP Administration Apixaban 2.5 mg 07/14/18 22:00 07/26/18 10:58 Eliquis - PO 2.5 mg BID JAGDEEP Administration Atorvastatin Calcium 10 mg 07/14/18 22:00 07/25/18 21:48 Lipitor - PO 10 mg HS JAGDEEP Administration Budesonide/Formoterol Fumarate 2 puff 07/14/18 22:00 07/26/18 11:10 Symbicort 80/4.5mcg - IH 2 puff BID JAGDEEP Administration Clotrimazole 1 applic 07/16/18 12:15 07/26/18 11:10 Lotrimin 1% Cream - TP 1 applic BID JAGDEEP Administration Diltiazem HCl 120 mg 07/12/18 10:00 07/26/18 10:58 Cardizem Cd - PO 120 mg DAILY JAGDEEP Administration Hydralazine HCl 50 mg 07/14/18 22:00 07/26/18 07:00 Apresoline - PO 50 mg TID JAGDEEP Administration Levothyroxine Sodium 75 mcg 07/15/18 07:00 07/26/18 07:00 Synthroid - PO 75 mcg DAILY@0700 JAGDEEP Administration Multivitamins/Minerals/Vitamin C 1 tab 07/15/18 10:00 07/26/18 11:00 Tab-A-Vit - PO 1 tab DAILY JAGDEEP Administration Pantoprazole Sodium 40 mg 07/15/18 10:00 07/26/18 11:00 Protonix - PO 40 mg DAILY JAGDEEP Administration Potassium Chloride 40 meq 07/23/18 13:15 07/26/18 10:59 Potassium Chloride Oral Liquid PO 40 meq DAILY JAGDEEP Administration Prednisone 20 mg 07/24/18 10:00 07/26/18 10:58 Deltasone - PO 20 mg DAILY JAGDEEP Administration Torsemide 80 mg 07/26/18 10:00 07/26/18 10:58 Demadex - PO 80 mg DAILY JAGDEEP Administration Physical Examination Constitutional: Yes: alert and awake Eyes: Yes: Conjunctiva Clear Neck: Yes: Supple, Other (no jvd) Cardiovascular: Yes: Pulse Irregular Respiratory: Yes: decreased breath sounds B/l Gastrointestinal: Yes: Soft/ non tender . bowel sound present, no edema Neurological: Yes: Alert Psychiatric: Yes: Alert Assessment/Plan BIPAP as needed during the day and scheduled for PM Continue present care Abx completed iv steroids-->changed to PO monitor nebulizer treatment spoke with pt and explained to him about medical condition and that he is now completely dependent on O2 ? palliative care Problem List - Problems (1) Respiratory failure with hypoxia Code(s): J96.91 - RESPIRATORY FAILURE, UNSPECIFIED WITH HYPOXIA (2) Chronic diastolic CHF (congestive heart failure) Code(s): I50.32 - CHRONIC DIASTOLIC (CONGESTIVE) HEART FAILURE (3) HTN (hypertension) Code(s): I10 - ESSENTIAL (PRIMARY) HYPERTENSION Qualifiers: Hypertension type: essential hypertension Qualified Code(s): I10 - Essential (primary) hypertension (4) Hypothyroidism Code(s): E03.9 - HYPOTHYROIDISM, UNSPECIFIED Qualifiers: Hypothyroidism type: unspecified Qualified Code(s): E03.9 - Hypothyroidism , unspecified (5) Paroxysmal A-fib Code(s): I48.0 - PAROXYSMAL ATRIAL FIBRILLATION
--- NOTE | 2018-07-26 14:24 | PN ---
Progress Note (short form) - Note Progress Note: Renal follow up for ANNALISA Pt seen and examined at the bedside sitting in chair reports sob much improved no cp, abd pain, N/V/D making urine Vital Signs Temperature 97.5 F L 07/26/18 06:00 Pulse Rate 64 07/26/18 09:41 Respiratory Rate 19 07/26/18 09:41 Blood Pressure 137/39 L 07/26/18 09:41 O2 Sat by Pulse Oximetry (%) 98 07/26/18 08:22 Intake & Output 07/23/18 07/24/18 07/25/18 07/26/18 23:59 23:59 23:59 23:59 Intake Total 1700 1440 1810 Output Total 1800 1000 600 Balance -544 753 4218 Weight 73.845 kg 73.301 kg 73.119 kg 71.395 kg NAD on BIPAP RRR Dec BS b/l Lung ribera no LE edema CBC, BMP 07/25/18 06:20 07/25/18 06:20 Current Medications Acetaminophen (Tylenol -) 650 mg PO Q6H PRN PRN Reason: PAIN LEVEL 1-5 Last Admin: 07/25/18 11:19 Dose: 650 mg Albuterol Sulfate (Ventolin 0.083% Nebulizer Soln -) 1 amp NEB Q4H PRN PRN Reason: SHORT OF BREATH/WHEEZING Albuterol/Ipratropium (Duoneb -) 1 amp NEB RQID [facility] Last Admin: 07/26/18 11:51 Dose: 1 amp Apixaban (Eliquis -) 2.5 mg PO BID [facility] Last Admin: 07/26/18 10:58 Dose: 2.5 mg Atorvastatin Calcium (Lipitor -) 10 mg PO HS [facility] Last Admin: 07/25/18 21:48 Dose: 10 mg Budesonide/Formoterol Fumarate (Symbicort 80/4.5mcg -) 2 puff IH BID [facility] Last Admin: 07/26/18 11:10 Dose: 2 puff Clotrimazole (Lotrimin 1% Cream -) 1 applic TP BID [facility] Last Admin: 07/26/18 11:10 Dose: 1 applic Diltiazem HCl (Cardizem Cd -) 120 mg PO DAILY [facility] Last Admin: 07/26/18 10:58 Dose: 120 mg Hydralazine HCl (Apresoline -) 50 mg PO TID [facility] Last Admin: 07/26/18 07:00 Dose: 50 mg Levothyroxine Sodium (Synthroid -) 75 mcg PO DAILY@0700 [facility] Last Admin: 07/26/18 07:00 Dose: 75 mcg Multivitamins/Minerals/Vitamin C (Tab-A-Vit -) 1 tab PO DAILY [facility] Last Admin: 07/26/18 11:00 Dose: 1 tab Pantoprazole Sodium (Protonix -) 40 mg PO DAILY [facility] Last Admin: 07/26/18 11:00 Dose: 40 mg Potassium Chloride (Potassium Chloride Oral Liquid) 40 meq PO DAILY [facility] Last Admin: 07/26/18 10:59 Dose: 40 meq Prednisone (Deltasone -) 20 mg PO DAILY [facility] Last Admin: 07/26/18 10:58 Dose: 20 mg Torsemide (Demadex -) 80 mg PO DAILY [facility] Last Admin: 07/26/18 10:58 Dose: 80 mg 82 year old AA gentleman with history of CKD, Hyperlipidemia, CHF, COPD, Afib, Hypothyroidism who presented with SOB and Fever and found to have PNA + CHF and developed ANNALISA. #ANNALISA on CKD #CKD #PNA #CHF improving #COPD/Reactive airway disease #Anemia #Gallstones/Gallbladder wall thickening Renal function improved and stable BUN remains high due to steroids volume status improved, continue torsemide 80mg Daily Trend daily weights Pulmonary following BIPAP as needed Palliative care navdeep Veras DO
[2018-07-26 15:26] LABS: ANION GAP 8 MMOL/L (8-16); BLOOD UREA NITROGEN 87 mg/dL (7-18); CALCIUM 8.1 mg/dL (8.5-10.1); CHLORIDE 92 mmol/L (98-107); CO2 37 mmol/L (21-32); CREATININE 1.6 mg/dL (0.55-1.3); MAGNESIUM 2.3 mg/dL (1.8-2.4); POTASSIUM 3.9 mmol/L (3.5-5.1); SODIUM 137 mmol/L (136-145)
[2018-07-26 15:28] LABS: GLUCOSE,RANDOM 331 mg/dL (74-106)
--- NOTE | 2018-07-26 16:21 | DS ---
Physical Examination Vital Signs: Vital Signs Temperature 97.7 F 07/26/18 14:48 Pulse Rate 88 07/26/18 16:04 Respiratory Rate 21 H 07/26/18 14:48 Blood Pressure 136/83 07/26/18 14:48 O2 Sat by Pulse Oximetry (%) 98 07/26/18 08:22 Labs: CBC, BMP 07/25/18 06:20 07/26/18 14:25 Discharge Summary Reason For Visit: HYPERTENSION/HYPOXIA/OBS PUL DIS Current Active Problems Atrial flutter (Acute) CKD (chronic kidney disease) (Acute) COPD exacerbation (Acute) Chronic diastolic CHF (congestive heart failure) (Acute) GERD (gastroesophageal reflux disease) (Acute) HTN (hypertension) (Acute) Hypothyroidism (Acute) Paroxysmal A-fib (Acute) Penicillin allergy (Acute) Pneumonia (Acute) Pulmonary HTN (Acute) Renal dysfunction (Acute) Respiratory failure with hypoxia (Acute) Condition: Improved - Instructions Referrals: Ham Bennett MD [Primary Care Provider] - Disposition: RESIDENTIAL FACILITY - Home Medications Comprehensive Discharge Medication List: Ambulatory Orders Albuterol 2.5/Ipratropium 0.5 [Duoneb -] 1 neb IH QID 06/24/18 Albuterol Sulfate Inhaler - [Ventolin HFA Inhaler -] 1 puff IH DAILY 06/24/18 Apixaban [Eliquis] 2.5 mg PO BID 06/24/18 Fluticasone Propionate [Flovent Diskus] 50 mcg IH BID 06/24/18 Fluticasone/Salmeterol [Advair 250-50 Diskus] 1 each IH BID 06/24/18 Hydralazine HCl 100 mg PO TID 06/24/18 Levothyroxine [Synthroid -] 75 mcg PO DAILY 06/24/18 Multivit-Min/FA/Lycopen/Lutein [Centrum Silver Tablet] 1 each PO DAILY 06/24/18 Pantoprazole Sodium [Protonix] 40 mg PO DAILY 06/24/18 Simvastatin 10 mg PO DAILY 06/24/18 Diltiazem Cd [Cardizem Cd -] 120 mg PO DAILY #30 cap.cd.24h 07/26/18 Insulin Sliding Scale [Novolog Vial Sliding Scale -] 1 units SQ TIDAC #1 pen Torsemide [Demadex -] 80 mg PO DAILY #20 tablet 07/26/18 predniSONE [Deltasone -] See Taper PO DAILY #20 tablet 07/26/18
[2018-07-26] MEDS ORDERED: INSULIN (NOVOLOG) ASPART 100 UNITS/ML 10ML VIAL ONE (17:37)
[2018-07-26] MEDS: INSULIN SLIDING SCALE (NOVOLOG) 1 VIAL SQ SCH (18:16)
[2018-07-26] MEDS: ATORVASTATIN CA 10 MG TABLET (FP) PO SCH (21:51)
[2018-07-26 21:54] LABS: HEMATOCRIT 33.4 % (35.4-49); HEMOGLOBIN 10.6 GM/dL (11.7-16.9); MCH 26.2 pg (25.7-33.7); MCHC 31.8 g/dl (32.0-35.9); MEAN CELL VOLUME 82.2 fl (80-96); MEAN PLT VOLUME 7.2 fl (7.5-11.1); PLATELET COUNT 333 K/MM3 (134-434); RBC 4.06 M/mm3 (4.00-5.60); RDW 23.8 % (11.9-15.9)
[2018-07-26] MEDS: ACETAMINOPHEN 325 MG TABLET (FP) PO PRN (21:55)
[2018-07-26 21:56] LABS: ADD RBC MORPHOLOGY YES
[2018-07-26 22:38] LABS: ANISOCYTOSIS 3+; MACROCYTOSIS 1+; PLATELET ESTIMATE ADEQUATE
--- NOTE | 2018-07-27 01:44 | HOSP ---
Subjective - Review of Symptoms Events since last encounter: called by RN who reports pt with episode GI bleed Physical Examination Vital Signs: Vital Signs Temperature 97.9 F 07/26/18 17:00 Pulse Rate 75 07/27/18 00:04 Respiratory Rate 22 H 07/26/18 20:37 Blood Pressure 121/75 07/26/18 20:37 O2 Sat by Pulse Oximetry (%) 99 07/27/18 00:04 Labs: CBC, BMP 07/26/18 19:50 07/26/18 14:25 Hospitalist Encounter Assessment: GI bleeding - hold eliquis - cbc in am - gi consult - cont protonix - npo
[2018-07-27] MEDS: INSULIN SLIDING SCALE (NOVOLOG) 1 VIAL SQ SCH ×3 (06:48→16:50)
[2018-07-27] MEDS: LEVOTHYROXINE NA 75 MCG TABLET (FP) PO SCH (06:48)
[2018-07-27] MEDS: hydrALAZINE HCL 50 MG TABLET (FP) PO SCH ×3 (06:48→21:54)
[2018-07-27 07:27] LABS: BASO % 0.1 % (0-2.0); EOS % 0.4 % (0-4.5); HEMATOCRIT 31.8 % (35.4-49); HEMOGLOBIN 10.2 GM/dL (11.7-16.9); LYMPH % 1.6 % (8-40); MCH 26.3 pg (25.7-33.7); MCHC 32.1 g/dl (32.0-35.9); MEAN CELL VOLUME 81.9 fl (80-96); MEAN PLT VOLUME 7.5 fl (7.5-11.1); MONO % 6.1 % (3.8-10.2); NEUT % 91.8 % (42.8-82.8); PLATELET COUNT 279 K/MM3 (134-434); RBC 3.88 M/mm3 (4.00-5.60); RDW 23.3 % (11.9-15.9); WHITE BLOOD COUNT 21.8 K/mm3 (4.0-10.0)
[2018-07-27] MEDS: ALBUTEROL SO4 2.5/IPRATROPIUM 0.5 INH SOL 3 ML VIAL.NEB. NEB SCH ×4 (07:36→21:34)
[2018-07-27 08:25] LABS: ANION GAP 9 MMOL/L (8-16); BLOOD UREA NITROGEN 89 mg/dL (7-18); CHLORIDE 95 mmol/L (98-107); CO2 37 mmol/L (21-32); CREATININE 1.6 mg/dL (0.55-1.3); GLUCOSE,RANDOM 144 mg/dL (74-106); MAGNESIUM 2.3 mg/dL (1.8-2.4); PHOSPHOROUS 4.4 mg/dL (2.5-4.9); SODIUM 141 mmol/L (136-145)
[2018-07-27 08:31] LABS: POTASSIUM 2.9 mmol/L (3.5-5.1)
[2018-07-27] MEDS ORDERED: POTASSIUM CHLORIDE ORAL LIQUID 20 MEQ/15 ML PO ONE ×2 (09:27→14:30)
[2018-07-27] MEDS ORDERED: PT OWN MED DRAWER 7, Y5N ONE ×4 (10:00→21:39)
[2018-07-27] MEDS: TORSEMIDE 20 MG TABLET (FP) PO SCH (10:15)
[2018-07-27] MEDS: predniSONE 20 MG TABLET (UD) PO SCH (10:16)
[2018-07-27] MEDS: BUDESONIDE/FORMETEROL FUMARATE 80/4.5 mcg INHALER IH SCH ×2 (10:17→21:54)
[2018-07-27] MEDS: CLOTRIMAZOLE 1% CREAM 15 GM TUBE TP SCH ×2 (10:17→21:54)
[2018-07-27] MEDS: MULTIVITAMINS (DAILY MVI) TABLET (FP) PO SCH (10:18)
[2018-07-27] MEDS: PANTOPRAZOLE 40 MG TABLET (FP) PO SCH (10:18)
--- NOTE | 2018-07-27 10:20 | PN ---
Progress Note, Physician Chief Complaint: Pt sitting up at bedside. Had episode of rectal bleeding pain at site of hiatal hernia is chronic. 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 On arrival, the patient endorses worsening dyspnea and productive cough. He also reports chronic abdominal pain 2/2 hiatal hernia. Patient denies MCGRATH, acute vision change, chest pain, BLE swelling, or changes in sensation. - Current Medication List Current Medications: Active Medications Acetaminophen (Tylenol -) 650 mg PO Q6H PRN PRN Reason: PAIN LEVEL 1-5 Last Admin: 07/26/18 21:55 Dose: 650 mg Albuterol Sulfate (Ventolin 0.083% Nebulizer Soln -) 1 amp NEB Q4H PRN PRN Reason: SHORT OF BREATH/WHEEZING Albuterol/Ipratropium (Duoneb -) 1 amp NEB RQID [facility] Last Admin: 07/26/18 20:27 Dose: 1 amp Atorvastatin Calcium (Lipitor -) 10 mg PO HS [facility] Last Admin: 07/26/18 21:51 Dose: 10 mg Budesonide/Formoterol Fumarate (Symbicort 80/4.5mcg -) 2 puff IH BID [facility] Last Admin: 07/26/18 21:51 Dose: 2 puff Clotrimazole (Lotrimin 1% Cream -) 1 applic TP BID [facility] Last Admin: 07/26/18 21:52 Dose: 1 applic Diltiazem HCl (Cardizem Cd -) 120 mg PO DAILY [facility] Last Admin: 07/26/18 10:58 Dose: 120 mg Hydralazine HCl (Apresoline -) 50 mg PO TID [facility] Last Admin: 07/27/18 06:48 Dose: 50 mg Insulin Aspart (Novolog Vial Sliding Scale -) 1 vial SQ TIDAC [facility]; Protocol Last Admin: 07/27/18 06:48 Dose: 2 units Levothyroxine Sodium (Synthroid -) 75 mcg PO DAILY@0700 [facility] Last Admin: 09/28/18 06:48 Dose: 75 mcg Multivitamins/Minerals/Vitamin C (Tab-A-Vit -) 1 tab PO DAILY [facility] Last Admin: 07/26/18 11:00 Dose: 1 tab Pantoprazole Sodium (Protonix -) 40 mg PO DAILY [facility] Last Admin: 07/26/18 11:00 Dose: 40 mg Potassium Chloride (Potassium Chloride Oral Liquid) 40 meq PO DAILY [facility] Last Admin: 07/26/18 10:59 Dose: 40 meq Prednisone (Deltasone -) 20 mg PO DAILY [facility] Last Admin: 07/26/18 10:58 Dose: 20 mg Torsemide (Demadex -) 80 mg PO DAILY [facility] Last Admin: 07/26/18 10:58 Dose: 80 mg - Objective Vital Signs: Vital Signs Temperature 97.4 F L 07/27/18 09:35 Pulse Rate 134 H 07/27/18 10:14 Respiratory Rate 24 H 07/27/18 10:14 Blood Pressure 104/67 07/27/18 10:14 O2 Sat by Pulse Oximetry (%) 97 07/27/18 05:58 Constitutional: Yes: No Distress Eyes: Yes: WNL HENT: Yes: WNL Neck: Yes: WNL Cardiovascular: Yes: S1, S2 Respiratory: Yes: Diminished Gastrointestinal: Yes: Soft ...Rectal Exam: Yes: Deferred Genitourinary: No: Anuria Musculoskeletal: Yes: Muscle Weakness Extremities: Yes: Cool Edema: No Peripheral Pulses WNL: Yes Integumentary: Yes: WNL Neurological: Yes: Alert, Oriented, Weakness Psychiatric: Yes: WNL Labs: CBC, BMP 07/27/18 06:20 07/27/18 06:20 INR, PTT INR 2.08 (0.83-1.09) H 06/24/18 11:30 Problem List - Problems (1) Atrial flutter Assessment/Plan: On diltiazem CD 120 mg daily for HR control. HR varies from 90s at rest to 130s transiently when he sits up. Continue apixaban for anticoagulation. Repleted K; now 3.8; f/u serially while on diuretics. Code(s): I48.92 - UNSPECIFIED ATRIAL FLUTTER (2) CKD (chronic kidney disease) Assessment/Plan: On daily furosemide for CHF. Code(s): N18.9 - CHRONIC KIDNEY DISEASE, UNSPECIFIED Qualifiers: Chronic kidney disease stage: unspecified stage Qualified Code(s): N18.9 - Chronic kidney disease, unspecified (3) COPD exacerbation Assessment/Plan: hx exposure to 2nd hand smoke. Gives hx of "asthma". On bronchodilators, steroids, O2, Bipap per pulmonary (pt says he has oxygen at home, but not Bipap). Now off antibiotics. Code(s): J44.1 - CHRONIC OBSTRUCTIVE PULMONARY DISEASE W (ACUTE) EXACERBATION (4) Chronic diastolic CHF (congestive heart failure) Assessment/Plan: On hydralazine, diltiazem, and furosemide. F/u BUN/Cr, electrolytes (phosphorous level pending; repleted K). CKD: avoid excessive dehydration (on Demedex).. CXR 07/22: improved aeration; still with vascular congestion and pleural effusion; 07/25 CXR shows little change from this reading. Is and Os; daily weights. Code(s): I50.32 - CHRONIC DIASTOLIC (CONGESTIVE) HEART FAILURE (5) GERD (gastroesophageal reflux disease) Code(s): K21.9 - GASTRO-ESOPHAGEAL REFLUX DISEASE WITHOUT ESOPHAGITIS (6) HTN (hypertension) Assessment/Plan: On diltiazem, , hydralazine and furosemide. Code(s): I10 - ESSENTIAL (PRIMARY) HYPERTENSION Qualifiers: Hypertension type: essential hypertension Qualified Code(s): I10 - Essential (primary) hypertension (7) Hypothyroidism Assessment/Plan: On sythroid; elevated TSH; normal free T4. 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 Good urinary output. Code(s): N28.9 - DISORDER OF KIDNEY AND URETER, UNSPECIFIED (9) Pulmonary HTN Assessment/Plan: RVSP likely moderately severe (noted significant TR on ECHO, which also showed normal LVEF; moderately dilated RA, mildly dilated RV, borderline reduced RVEF, mild LAE, mild MR, moderate LA) Code(s): I27.20 - PULMONARY HYPERTENSION, UNSPECIFIED
--- NOTE | 2018-07-27 10:50 | PN ---
Progress Note (short form) - Note Progress Note: Patient seen and examined. Events noted Episode of GI bleed last night--- no bleeding now H&H stable Eliquis was held patient comfortable Denies pain wants to eat Vital Signs Temp 97.4 F L 07/27/18 09:35 Pulse 134 H 07/27/18 10:14 Resp 24 H 07/27/18 10:14 BP 104/67 07/27/18 10:14 Pulse Ox 98 07/27/18 10:35 Intake & Output 07/26/18 07/26/18 07/27/18 11:59 23:59 11:59 Intake Total 200 Balance 200 Weight 157 lb 6.4 oz Intake: Oral 200 Other: Voiding Method Diaper Diaper # Unmeasured Voids Void 3 2 2 Bowel Movement Yes Yes Yes: DARK RED COLOR # Bowel Movements 2 Weight Measurement Method Patient Lift Scale Active Medications Acetaminophen (Tylenol -) 650 mg PO Q6H PRN PRN Reason: PAIN LEVEL 1-5 Last Admin: 07/26/18 21:55 Dose: 650 mg Albuterol Sulfate (Ventolin 0.083% Nebulizer Soln -) 1 amp NEB Q4H PRN PRN Reason: SHORT OF BREATH/WHEEZING Albuterol/Ipratropium (Duoneb -) 1 amp NEB RQID [facility] Last Admin: 07/27/18 07:36 Dose: 1 amp Atorvastatin Calcium (Lipitor -) 10 mg PO HS [facility] Last Admin: 07/26/18 21:51 Dose: 10 mg Budesonide/Formoterol Fumarate (Symbicort 80/4.5mcg -) 2 puff IH BID [facility] Last Admin: 07/27/18 10:17 Dose: 2 puff Clotrimazole (Lotrimin 1% Cream -) 1 applic TP BID [facility] Last Admin: 07/27/18 10:17 Dose: 1 applic Diltiazem HCl (Cardizem Cd -) 120 mg PO DAILY [facility] Last Admin: 07/27/18 10:16 Dose: 120 mg Hydralazine HCl (Apresoline -) 50 mg PO TID [facility] Last Admin: 07/27/18 06:48 Dose: 50 mg Insulin Aspart (Novolog Vial Sliding Scale -) 1 vial SQ TIDAC [facility]; Protocol Last Admin: 07/27/18 06:48 Dose: 2 units Levothyroxine Sodium (Synthroid -) 75 mcg PO DAILY@0700 [facility] Last Admin: 07/27/18 06:48 Dose: 75 mcg Multivitamins/Minerals/Vitamin C (Tab-A-Vit -) 1 tab PO DAILY [facility] Last Admin: 07/27/18 10:18 Dose: 1 tab Pantoprazole Sodium (Protonix -) 40 mg PO DAILY [facility] Last Admin: 07/27/18 10:18 Dose: 40 mg Potassium Chloride (Potassium Chloride Oral Liquid) 40 meq PO DAILY [facility] Last Admin: 07/26/18 10:59 Dose: 40 meq Prednisone (Deltasone -) 20 mg PO DAILY [facility] Last Admin: 07/27/18 10:16 Dose: 20 mg Torsemide (Demadex -) 80 mg PO DAILY [facility] Last Admin: 07/27/18 10:15 Dose: 80 mg CBC, BMP 07/27/18 06:20 07/27/18 06:20 Physical Examination Constitutional: Yes: alert and awake Eyes: Yes: Conjunctiva Clear Neck: Yes: Supple, Other (no jvd) Cardiovascular: Yes: Pulse Irregular Respiratory: Yes: decreased breath sounds B/l --- scattered rhonchi Gastrointestinal: Yes: Soft/ non tender . 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 Doubt significant bleed restart anticoagulations with caution Discussed with [place] also Monitor CBC/Electrolytes Supplement potassium We will consult GI also will hold discharge today If stable will consider discharge tomorrow Discussed with patient--- in agreement Will follow Problem List - Problems (1) Respiratory failure with hypoxia Code(s): J96.91 - RESPIRATORY FAILURE, UNSPECIFIED WITH HYPOXIA (2) Chronic diastolic CHF (congestive heart failure) Code(s): I50.32 - CHRONIC DIASTOLIC (CONGESTIVE) HEART FAILURE (3) HTN (hypertension) Code(s): I10 - ESSENTIAL (PRIMARY) HYPERTENSION Qualifiers: Hypertension type: essential hypertension Qualified Code(s): I10 - Essential (primary) hypertension (4) Hypothyroidism Code(s): E03.9 - HYPOTHYROIDISM, UNSPECIFIED Qualifiers: Hypothyroidism type: unspecified Qualified Code(s): E03.9 - Hypothyroidism , unspecified (5) Paroxysmal A-fib Code(s): I48.0 - PAROXYSMAL ATRIAL FIBRILLATION
--- NOTE | 2018-07-27 11:04 | CON.GI ---
Consult Consult Specialty:: GI Referred by:: Dr. Deborah Meza Reason for Consultation:: Rectal bleeding - History of Present Illness Chief Complaint: Shortness of breath History of Present Illness: 82 y/o retired [employer] admitted 06/24/18 from [place] for evaluation of fevers / hypoxia. He has been admitted since that time. He has been evaluated by pulmonary, ID, Cardiology and nephrology. He is oxygen dependent and treated for PNA/COPD exacerbation, CHF. he has been on eliquis for A. Fib and on prednisone for COPD. he is receiving PPI. Asked to evaluate dina rectal bleeding. Father shannan also explains that he saw blood on his scrotum. he thinks he had an EGD/Colonoscopy 5 years ago in [place]. He describes needing to eat small meals but did not expand on this complaint any further. he states that he "always has a little pain in his stomach". he denies any change in bowel habits. there is no family history of colon cancer. The history he gives is limited. - History Source History Provided By: Patient, Medical Record - Past Medical History Cardio/Vascular: Yes: AFIB, HTN Pulmonary: Yes: COPD Gastrointestinal: Yes: GERD, Hiatal Hernia (per the chart) Renal/: Yes: Renal Inusuff Endocrine: Yes: Hypothyroidism - Alcohol/Substance Use Hx Alcohol Use: Yes (occasional) History of Substance Use: reports: None - Smoking History Smoking history: Never smoked Have you smoked in the past 12 months: No - Social History Usual Living Arrangement: [facility] ADL: Support Services Occupation: Place of : [facility] [facility] [employer] History of Recent Travel: No Home Medications - Allergies Allergies/Adverse Reactions: Allergies Allergy/AdvReac Type Severity Reaction Status Date / Time lisinopril Allergy Verified 06/24/18 11:19 Penicillins Allergy Verified 06/24/18 11:19 rosuvastatin [From Crestor] Allergy Verified 06/24/18 11:19 - Home Medications Home Medications: Ambulatory Orders Albuterol 2.5/Ipratropium 0.5 [Duoneb -] 1 neb IH QID 06/24/18 Albuterol Sulfate Inhaler - [Ventolin HFA Inhaler -] 1 puff IH DAILY 06/24/18 Apixaban [Eliquis] 2.5 mg PO BID 06/24/18 Fluticasone Propionate [Flovent Diskus] 50 mcg IH BID 06/24/18 Fluticasone/Salmeterol [Advair 250-50 Diskus] 1 each IH BID 06/24/18 Hydralazine HCl 100 mg PO TID 06/24/18 Levothyroxine [Synthroid -] 75 mcg PO DAILY 06/24/18 Multivit-Min/FA/Lycopen/Lutein [Centrum Silver Tablet] 1 each PO DAILY 06/24/18 Pantoprazole Sodium [Protonix] 40 mg PO DAILY 06/24/18 Simvastatin 10 mg PO DAILY 06/24/18 Diltiazem Cd [Cardizem Cd -] 120 mg PO DAILY #30 cap.cd.24h 07/26/18 Insulin Sliding Scale [Novolog Vial Sliding Scale -] 1 units SQ TIDAC #1 pen Torsemide [Demadex -] 80 mg PO DAILY #20 tablet 07/26/18 predniSONE [Deltasone -] See Taper PO DAILY #20 tablet 07/26/18 Family Disease History - Family Disease History Other Family History: No family history of colorectal cancer Review of Systems - Review of Systems Constitutional: reports: Unintentional Wgt. Loss. denies: Chills Cardiovascular: denies: Chest Pain Respiratory: reports: SOB Gastrointestinal: reports: Abdominal Pain. denies: Constipation, Diarrhea, Melena, Vomiting Physical Exam-GI Vital Signs: Vital Signs Temperature 97.4 F L 07/27/18 09:35 Pulse Rate 134 H 07/27/18 10:14 Respiratory Rate 24 H 07/27/18 10:14 Blood Pressure 104/67 07/27/18 10:14 O2 Sat by Pulse Oximetry (%) 98 07/27/18 10:35 Constitutional: Yes: Calm Eyes: No: Sclera Icterus Cardiovascular: Yes: Tachycardia, Pulse Irregular Respiratory: Yes: Diminished (at bases b/l, particularly right lung) Gastrointestinal Inspection: No: Distention ...Auscultate: Yes: Normoactive Bowel Sounds ...Palpate: Yes: Soft, Tenderness (mild TTP left and right abdomen). No: Firm/ Rigid, Guarding, Tenderness, Rebound ...Percussion: No: Tympanitic ...Rectal Exam: Yes: Other (Copious soft light brown stool in rectal vault, no overt blood, guaiac +) Edema: No (No LE edema) Neurological: Yes: Alert Labs: CBC, BMP 07/27/18 06:20 07/27/18 06:20 INR, PTT INR 2.08 (0.83-1.09) H 06/24/18 11:30 Imaging - Results Cat Scan: Report Reviewed (CT chest 07/18/18) Ultrasound: Report Reviewed (abdomen 07/03/18: no ascites) Problem List - Problems (1) Rectal bleeding Assessment/Plan: No overt bleeding noted on my exam with stable H/H. Given copious light brown stool noted on my exam, I question if thebleeding came from a more distal source such as internal hemorrhoids. I did discuss the finding of the occult blood in his stool with Radha Shannan and explained that while this could be from recent bleeding, I could not exclude alternate sources such as bleeding blood vessels, polyps and cancers of the GI tract. We discussed colonoscopy for further evaluation however father shannan has deferred this stating his age and medcial comorbidities. His tenuoous respiratory status would put him at a higher risk for potential complications. At this point would continue to monitor, resume A/C if it is felt to be medically necessary, continue PPI therapy. If rectal bleeding persists, worsening abdominal pain, obtain CT scan of the abdomen and pelvis with PO contrast. Would defer endoscopic evaluation for life threatening bleeding and if that was the wish of father shannan. Recall as needed Code(s): K62.5 - HEMORRHAGE OF ANUS AND RECTUM
[2018-07-27] MEDS ORDERED: INSULIN (NOVOLOG) ASPART 100 UNITS/ML 10ML VIAL ONE (12:22)
[2018-07-27] MEDS: KCL 10 MEQ IVPB 10 MEQ/100 ML INFUS.BAG IVPB SCH ×2 (12:38→14:40)
[2018-07-27] MEDS: ACETAMINOPHEN 325 MG TABLET (FP) PO PRN ×2 (12:51→22:05)
--- NOTE | 2018-07-27 13:25 | PN ---
Progress Note, Physician History of Present Illness: PULMONARY ALERT,FEELING BETTER,-SOB,COMFORTABLE - Current Medication List Current Medications: Active Medications Acetaminophen (Tylenol -) 650 mg PO Q6H PRN PRN Reason: PAIN LEVEL 1-5 Last Admin: 07/27/18 12:51 Dose: 650 mg Albuterol Sulfate (Ventolin 0.083% Nebulizer Soln -) 1 amp NEB Q4H PRN PRN Reason: SHORT OF BREATH/WHEEZING Albuterol/Ipratropium (Duoneb -) 1 amp NEB RQID [facility] Last Admin: 07/27/18 11:46 Dose: 1 amp Apixaban (Eliquis -) 2.5 mg PO BID [facility] Atorvastatin Calcium (Lipitor -) 10 mg PO HS [facility] Last Admin: 07/26/18 21:51 Dose: 10 mg Budesonide/Formoterol Fumarate (Symbicort 80/4.5mcg -) 2 puff IH BID [facility] Last Admin: 07/27/18 10:17 Dose: 2 puff Clotrimazole (Lotrimin 1% Cream -) 1 applic TP BID [facility] Last Admin: 07/27/18 10:17 Dose: 1 applic Diltiazem HCl (Cardizem Cd -) 120 mg PO DAILY [facility] Last Admin: 07/27/18 10:16 Dose: 120 mg Hydralazine HCl (Apresoline -) 50 mg PO TID [facility] Last Admin: 07/27/18 06:48 Dose: 50 mg Potassium Chloride (Potassium Chloride 10 Meq Premix Ivpb -) 10 meq in 100 mls @ 100 mls/hr IVPB Q60M [facility] Stop: 07/27/18 13:34 Last Admin: 07/27/18 12:38 Dose: 100 mls/hr Insulin Aspart (Novolog Vial Sliding Scale -) 1 vial SQ TIDAC [facility]; Protocol Last Admin: 07/27/18 12:03 Dose: 4 units Levothyroxine Sodium (Synthroid -) 75 mcg PO DAILY@0700 [facility] Last Admin: 07/27/18 06:48 Dose: 75 mcg Multivitamins/Minerals/Vitamin C (Tab-A-Vit -) 1 tab PO DAILY [facility] Last Admin: 07/27/18 10:18 Dose: 1 tab Pantoprazole Sodium (Protonix -) 40 mg PO DAILY [facility] Last Admin: 07/27/18 10:18 Dose: 40 mg Potassium Chloride (Potassium Chloride Oral Liquid) 60 meq PO DAILY [facility] Prednisone (Deltasone -) 20 mg PO DAILY [facility] Last Admin: 07/27/18 10:16 Dose: 20 mg Torsemide (Demadex -) 80 mg PO DAILY [facility] Last Admin: 07/27/18 10:15 Dose: 80 mg - Objective Vital Signs: Vital Signs Temperature 97.4 F L 07/27/18 09:35 Pulse Rate 134 H 07/27/18 10:14 Respiratory Rate 24 H 07/27/18 10:14 Blood Pressure 104/67 07/27/18 10:14 O2 Sat by Pulse Oximetry (%) 98 07/27/18 10:35 Constitutional: Yes: Well Nourished, Calm Eyes: Yes: WNL HENT: Yes: WNL Neck: Yes: WNL Cardiovascular: Yes: Regular Rate and Rhythm, S1, S2 Respiratory: Yes: Diminished Gastrointestinal: Yes: Normal Bowel Sounds, Soft Extremities: Yes: WNL Edema: No Labs: CBC, BMP 07/27/18 06:20 07/27/18 06:20 INR, PTT INR 2.08 (0.83-1.09) H 06/24/18 11:30 Problem List - Problems (1) CKD (chronic kidney disease) Code(s): N18.9 - CHRONIC KIDNEY DISEASE, UNSPECIFIED Qualifiers: Chronic kidney disease stage: unspecified stage Qualified Code(s): N18.9 - Chronic kidney disease, unspecified (2) COPD exacerbation Code(s): J44.1 - CHRONIC OBSTRUCTIVE PULMONARY DISEASE W (ACUTE) EXACERBATION (3) Chronic diastolic CHF (congestive heart failure) Code(s): I50.32 - CHRONIC DIASTOLIC (CONGESTIVE) HEART FAILURE (4) HTN (hypertension) Code(s): I10 - ESSENTIAL (PRIMARY) HYPERTENSION Qualifiers: Hypertension type: essential hypertension Qualified Code(s): I10 - Essential (primary) hypertension (5) Paroxysmal A-fib Code(s): I48.0 - PAROXYSMAL ATRIAL FIBRILLATION (6) Pneumonia Code(s): J18.9 - PNEUMONIA, UNSPECIFIED ORGANISM (7) Pulmonary HTN Code(s): I27.20 - PULMONARY HYPERTENSION, UNSPECIFIED (8) Respiratory failure with hypoxia Code(s): J96.91 - RESPIRATORY FAILURE, UNSPECIFIED WITH HYPOXIA Assessment/Plan ASSESSMENT AND PLAN: Acute on Chronic Hypoxic Respiratory Failure improved Pneumonia improved CHF Acute Kidney Injury Acute COPD Exacerbation Acute on Chronic Diastolic Heart Failure Pulmonary HTN Atrial Flutter with RVR HTN Hyperlipidemia Hypothyroidism - inhaled bronchodilators standing and PRN - NIPPV as needed - taper FiO2 to keep SpO2>90% - rate control - anticoagulation - monitor urine output, creatinine - prednisone - diuretics DR MENDOZA
--- NOTE | 2018-07-27 15:26 | PN ---
Progress Note (short form) - Note Progress Note: Renal follow up for ANNALISA Pt seen and examined at the bedside reports feeling better noted to have rectal bleeding overnight no abd pain, N/V/D, CP making urine Vital Signs Temperature 98.2 F 07/27/18 14:16 Pulse Rate 94 H 07/27/18 14:16 Respiratory Rate 24 H 07/27/18 14:16 Blood Pressure 141/88 07/27/18 14:16 O2 Sat by Pulse Oximetry (%) 98 07/27/18 10:35 Intake & Output 07/24/18 07/25/18 07/26/18 07/27/18 23:59 23:59 23:59 23:59 Intake Total 1440 1810 400 Output Total 1000 600 Balance 440 1210 400 Weight 73.301 kg 73.119 kg 71.395 kg NAD on BIPAP RRR Dec BS b/l Lung ribera no LE edema CBC, BMP 07/27/18 06:20 Laboratory Tests 07/27/18 06:20 Potassium 2.9 L* Calcium 8.0 L Phosphorus 4.4 Magnesium 2.3 Current Medications Acetaminophen (Tylenol -) 650 mg PO Q6H PRN PRN Reason: PAIN LEVEL 1-5 Last Admin: 07/27/18 12:51 Dose: 650 mg Albuterol Sulfate (Ventolin 0.083% Nebulizer Soln -) 1 amp NEB Q4H PRN PRN Reason: SHORT OF BREATH/WHEEZING Albuterol/Ipratropium (Duoneb -) 1 amp NEB RQID [facility] Last Admin: 07/27/18 11:46 Dose: 1 amp Apixaban (Eliquis -) 2.5 mg PO BID [facility] Atorvastatin Calcium (Lipitor -) 10 mg PO HS [facility] Last Admin: 07/26/18 21:51 Dose: 10 mg Budesonide/Formoterol Fumarate (Symbicort 80/4.5mcg -) 2 puff IH BID [facility] Last Admin: 07/27/18 10:17 Dose: 2 puff Clotrimazole (Lotrimin 1% Cream -) 1 applic TP BID [facility] Last Admin: 07/27/18 10:17 Dose: 1 applic Diltiazem HCl (Cardizem Cd -) 120 mg PO DAILY [facility] Last Admin: 07/27/18 10:16 Dose: 120 mg Hydralazine HCl (Apresoline -) 50 mg PO TID [facility] Last Admin: 07/27/18 14:33 Dose: 50 mg Insulin Aspart (Novolog Vial Sliding Scale -) 1 vial SQ TIDAC [facility]; Protocol Last Admin: 07/27/18 12:03 Dose: 4 units Levothyroxine Sodium (Synthroid -) 75 mcg PO DAILY@0700 [facility] Last Admin: 07/27/18 06:48 Dose: 75 mcg Multivitamins/Minerals/Vitamin C (Tab-A-Vit -) 1 tab PO DAILY [facility] Last Admin: 07/27/18 10:18 Dose: 1 tab Pantoprazole Sodium (Protonix -) 40 mg PO DAILY [facility] Last Admin: 07/27/18 10:18 Dose: 40 mg Potassium Chloride (Potassium Chloride Oral Liquid) 60 meq PO DAILY [facility] Prednisone (Deltasone -) 20 mg PO DAILY [facility] Last Admin: 07/27/18 10:16 Dose: 20 mg Torsemide (Demadex -) 80 mg PO DAILY [facility] Last Admin: 07/27/18 10:15 Dose: 80 mg 82 year old AA gentleman with history of CKD, Hyperlipidemia, CHF, COPD, Afib, Hypothyroidism who presented with SOB and Fever and found to have PNA + CHF and developed ANNALISA. #ANNALISA on CKD #CKD #PNA #CHF improving #COPD/Reactive airway disease #Anemia #Gallstones/Gallbladder wall thickening #Rectal bleeding Cr stable at 1.6, expect Cr to be slightly above goal while aggressive diuresis is on-going no signs of uremia despite high BUN continue torsemide 80mg daily Increased standing dose of KCL repeat K this evening s/p K supplementation Hgb stable despite rectal bleeding overnight supportive care Pravin Veras DO
[2018-07-27 15:50] LABS: PLATELET ESTIMATE ADEQUATE
[2018-07-27] MEDS: APIXABAN 2.5 MG TABLET PO SCH (21:54)
[2018-07-27] MEDS: ATORVASTATIN CA 10 MG TABLET (FP) PO SCH (21:54)
[2018-07-28] MEDS: hydrALAZINE HCL 50 MG TABLET (FP) PO SCH ×3 (06:59→22:52)
[2018-07-28] MEDS: LEVOTHYROXINE NA 75 MCG TABLET (FP) PO SCH (06:59)
[2018-07-28] MEDS: INSULIN SLIDING SCALE (NOVOLOG) 1 VIAL SQ SCH ×3 (07:03→17:25)
[2018-07-28] MEDS: ALBUTEROL SO4 2.5/IPRATROPIUM 0.5 INH SOL 3 ML VIAL.NEB. NEB SCH ×4 (07:50→20:50)
[2018-07-28 08:25] LABS: BASO % 0.3 % (0-2.0); EOS % 0.9 % (0-4.5); HEMATOCRIT 30.4 % (35.4-49); HEMOGLOBIN 9.7 GM/dL (11.7-16.9); LYMPH % 2.2 % (8-40); MCH 26.5 pg (25.7-33.7); MEAN CELL VOLUME 82.8 fl (80-96); MEAN PLT VOLUME 7.5 fl (7.5-11.1); MONO % 5.8 % (3.8-10.2); NEUT % 90.8 % (42.8-82.8); PLATELET COUNT 249 K/MM3 (134-434); RBC 3.67 M/mm3 (4.00-5.60); WHITE BLOOD COUNT 20.4 K/mm3 (4.0-10.0)
[2018-07-28 08:57] LABS: ALBUMIN 2.6 g/dl (3.4-5.0); ALK PHOS 62 U/L (45-117); ANION GAP 11 MMOL/L (8-16); BLOOD UREA NITROGEN 84 mg/dL (7-18); CALCIUM 8.1 mg/dL (8.5-10.1); CHLORIDE 95 mmol/L (98-107); CO2 37 mmol/L (21-32); CREATININE 1.7 mg/dL (0.55-1.3); GLUCOSE,RANDOM 104 mg/dL (74-106); MAGNESIUM 2.2 mg/dL (1.8-2.4); POTASSIUM 3.3 mmol/L (3.5-5.1); SGOT/AST 11 U/L (15-37); SGPT/ALT 27 U/L (13-61); SODIUM 143 mmol/L (136-145); TOT PROT 5.5 g/dl (6.4-8.2)
[2018-07-28] MEDS ORDERED: POTASSIUM CHLORIDE ORAL LIQUID 20 MEQ/15 ML PO SCH (10:00)
--- NOTE | 2018-07-28 10:40 | PN ---
Progress Note (short form) - Note Progress Note: Renal follow up for ANNALISA Pt seen and examined at the bedside reports feeling better no complaints no sob, cp, abd pain Vital Signs Temperature 98.3 F 07/28/18 06:00 Pulse Rate 92 H 07/28/18 06:00 Respiratory Rate 24 H 07/28/18 06:00 Blood Pressure 124/79 07/28/18 06:00 O2 Sat by Pulse Oximetry (%) 98 07/28/18 00:02 Intake & Output 07/25/18 07/26/18 07/27/18 07/28/18 23:59 23:59 23:59 23:59 Intake Total 1810 1650 Output Total 600 Balance 1210 1650 Weight 73.119 kg 71.395 kg 70.67 kg NAD on BIPAP RRR Dec BS, No LE edema CBC, BMP 07/28/18 07:30 07/28/18 07:00 Current Medications Acetaminophen (Tylenol -) 650 mg PO Q6H PRN PRN Reason: PAIN LEVEL 1-5 Last Admin: 07/27/18 22:05 Dose: 650 mg Albuterol Sulfate (Ventolin 0.083% Nebulizer Soln -) 1 amp NEB Q4H PRN PRN Reason: SHORT OF BREATH/WHEEZING Albuterol/Ipratropium (Duoneb -) 1 amp NEB RQID [facility] Last Admin: 07/28/18 07:50 Dose: 1 amp Apixaban (Eliquis -) 2.5 mg PO BID [facility] Last Admin: 07/27/18 21:54 Dose: 2.5 mg Atorvastatin Calcium (Lipitor -) 10 mg PO HS [facility] Last Admin: 07/27/18 21:54 Dose: 10 mg Budesonide/Formoterol Fumarate (Symbicort 80/4.5mcg -) 2 puff IH BID [facility] Last Admin: 07/27/18 21:54 Dose: 2 puff Clotrimazole (Lotrimin 1% Cream -) 1 applic TP BID [facility] Last Admin: 07/27/18 21:54 Dose: 1 applic Diltiazem HCl (Cardizem Cd -) 120 mg PO DAILY [facility] Last Admin: 07/27/18 10:16 Dose: 120 mg Hydralazine HCl (Apresoline -) 50 mg PO TID [facility] Last Admin: 07/28/18 06:59 Dose: 50 mg Insulin Aspart (Novolog Vial Sliding Scale -) 1 vial SQ TIDAC [facility]; Protocol Last Admin: 07/28/18 07:03 Dose: Not Given Levothyroxine Sodium (Synthroid -) 75 mcg PO DAILY@0700 [facility] Last Admin: 07/28/18 06:59 Dose: 75 mcg Multivitamins/Minerals/Vitamin C (Tab-A-Vit -) 1 tab PO DAILY [facility] Last Admin: 07/27/18 10:18 Dose: 1 tab Pantoprazole Sodium (Protonix -) 40 mg PO DAILY [facility] Last Admin: 07/27/18 10:18 Dose: 40 mg Potassium Chloride (Potassium Chloride Oral Liquid) 40 meq PO ONCE ONE Stop: 07/28/18 10:39 Potassium Chloride (Potassium Chloride Oral Liquid) 80 meq PO DAILY [facility] Prednisone (Deltasone -) 20 mg PO DAILY [facility] Last Admin: 07/27/18 10:16 Dose: 20 mg Torsemide (Demadex -) 80 mg PO DAILY [facility] Last Admin: 07/27/18 10:15 Dose: 80 mg 82 year old AA gentleman with history of CKD, Hyperlipidemia, CHF, COPD, Afib, Hypothyroidism who presented with SOB and Fever and found to have PNA + CHF and developed ANNALISA. #ANNALISA on CKD #CKD #PNA #CHF improving #COPD/Reactive airway disease #Anemia #Gallstones/Gallbladder wall thickening #Rectal bleeding Renal function stable Respiratory status appears better continue torsemide 80 mg dialy Increase KCL to 80meq daily TRend H/H, Stable thus far Pravin Veras DO
[2018-07-28] MEDS ORDERED: PT OWN MED DRAWER 7, Y5N ONE ×4 (11:04→22:49)
[2018-07-28] MEDS ORDERED: POTASSIUM CHLORIDE ORAL LIQUID 20 MEQ/15 ML PO ONE (11:15)
[2018-07-28] MEDS: PANTOPRAZOLE 40 MG TABLET (FP) PO SCH (11:17)
[2018-07-28] MEDS: APIXABAN 2.5 MG TABLET PO SCH ×2 (11:17→22:52)
[2018-07-28] MEDS: predniSONE 20 MG TABLET (UD) PO SCH (11:17)
[2018-07-28] MEDS: CLOTRIMAZOLE 1% CREAM 15 GM TUBE TP SCH ×2 (11:18→22:52)
[2018-07-28] MEDS: BUDESONIDE/FORMETEROL FUMARATE 80/4.5 mcg INHALER IH SCH ×2 (11:18→22:53)
[2018-07-28] MEDS: MULTIVITAMINS (DAILY MVI) TABLET (FP) PO SCH (11:18)
[2018-07-28] MEDS: TORSEMIDE 20 MG TABLET (FP) PO SCH (11:19)
[2018-07-28] MEDS ORDERED: INSULIN (NOVOLOG) ASPART 100 UNITS/ML 10ML VIAL ONE ×2 (11:38→18:38)
--- NOTE | 2018-07-28 11:39 | PN ---
Progress Note (short form) - Note Progress Note: comfortable denies pain slight decrease in h/h no further bleeding but no bm yet started on eliquis last night gi consult noted/ appreciated Vital Signs Temp 98.3 F 07/28/18 06:00 Pulse 92 H 07/28/18 06:00 Resp 24 H 07/28/18 06:00 BP 124/79 07/28/18 06:00 Pulse Ox 98 07/28/18 00:02 Intake & Output 07/27/18 07/27/18 07/28/18 11:59 23:59 11:59 Intake Total 200 1450 Balance 200 1450 Weight 155 lb 12.8 oz Intake: IVPB 200 Oral 200 1250 Other: Voiding Method Incontinent Diaper Incontinent # Unmeasured Voids Void 2 2 3 Bowel Movement Yes: DARK RED COLOR No No Weight Measurement Method Patient Lift Scale Active Medications Acetaminophen (Tylenol -) 650 mg PO Q6H PRN PRN Reason: PAIN LEVEL 1-5 Last Admin: 07/27/18 22:05 Dose: 650 mg Albuterol Sulfate (Ventolin 0.083% Nebulizer Soln -) 1 amp NEB Q4H PRN PRN Reason: SHORT OF BREATH/WHEEZING Albuterol/Ipratropium (Duoneb -) 1 amp NEB RQID [facility] Last Admin: 07/28/18 07:50 Dose: 1 amp Apixaban (Eliquis -) 2.5 mg PO BID [facility] Last Admin: 07/28/18 11:17 Dose: 2.5 mg Atorvastatin Calcium (Lipitor -) 10 mg PO HS [facility] Last Admin: 07/27/18 21:54 Dose: 10 mg Budesonide/Formoterol Fumarate (Symbicort 80/4.5mcg -) 2 puff IH BID [facility] Last Admin: 07/28/18 11:18 Dose: 2 puff Clotrimazole (Lotrimin 1% Cream -) 1 applic TP BID [facility] Last Admin: 07/28/18 11:18 Dose: 1 applic Diltiazem HCl (Cardizem Cd -) 120 mg PO DAILY [facility] Last Admin: 07/28/18 11:12 Dose: 120 mg Hydralazine HCl (Apresoline -) 50 mg PO TID [facility] Last Admin: 07/28/18 06:59 Dose: 50 mg Insulin Aspart (Novolog Vial Sliding Scale -) 1 vial SQ TIDAC [facility]; Protocol Last Admin: 07/28/18 07:03 Dose: Not Given Levothyroxine Sodium (Synthroid -) 75 mcg PO DAILY@0700 [facility] Last Admin: 07/28/18 06:59 Dose: 75 mcg Multivitamins/Minerals/Vitamin C (Tab-A-Vit -) 1 tab PO DAILY [facility] Last Admin: 07/28/18 11:18 Dose: 1 tab Pantoprazole Sodium (Protonix -) 40 mg PO DAILY [facility] Last Admin: 07/28/18 11:17 Dose: 40 mg Potassium Chloride (Potassium Chloride Oral Liquid) 80 meq PO DAILY [facility] Prednisone (Deltasone -) 20 mg PO DAILY [facility] Last Admin: 07/28/18 11:17 Dose: 20 mg Torsemide (Demadex -) 80 mg PO DAILY [facility] Last Admin: 07/28/18 11:19 Dose: 80 mg CBC, BMP 07/28/18 07:30 07/28/18 07:00 Physical Examination Constitutional: Yes: alert and awake Eyes: Yes: Conjunctiva Clear Neck: Yes: Supple, Other (no jvd) Cardiovascular: Yes: Pulse Irregular. Respiratory: Yes: decreased breath sounds B/l --- scattered rhonchi-- bilaterally/ diminished at bases Gastrointestinal: Yes: Soft/ non tender . bowel sound present,No rigidity or rebound no edema Neurological: Yes: Alert Psychiatric: Yes: Alert Assessment/Plan clinically stable GI bleed monitor h/h restarted anticoagulations with caution Monitor CBC/Electrolytes Supplement potassium cbc in am If stable will consider discharge tomorrow Discussed with patient--- in agreement Will follow Problem List - Problems (1) Respiratory failure with hypoxia Code(s): J96.91 - RESPIRATORY FAILURE, UNSPECIFIED WITH HYPOXIA (2) Chronic diastolic CHF (congestive heart failure) Code(s): I50.32 - CHRONIC DIASTOLIC (CONGESTIVE) HEART FAILURE (3) HTN (hypertension) Code(s): I10 - ESSENTIAL (PRIMARY) HYPERTENSION Qualifiers: Hypertension type: essential hypertension Qualified Code(s): I10 - Essential (primary) hypertension (4) Hypothyroidism Code(s): E03.9 - HYPOTHYROIDISM, UNSPECIFIED Qualifiers: Hypothyroidism type: unspecified Qualified Code(s): E03.9 - Hypothyroidism , unspecified (5) Paroxysmal A-fib Code(s): I48.0 - PAROXYSMAL ATRIAL FIBRILLATION
--- NOTE | 2018-07-28 12:03 | PN ---
Progress Note (short form) - Note Progress Note: PULMONARY Breathing better today. No cough or wheezing. Vital Signs Period Temp Pulse Resp BP Sys/[place] Pulse Ox Last 24 Hr 97.7 F-98.3 F 90-94 24-24 124-141/68-88 98-100 Gen: NAD at rest Heart: RRR Lung: distant breath sounds Abd: soft, nontender Ext: no edema CBC, BMP 07/28/18 07:30 07/28/18 07:00 Active Medications Acetaminophen (Tylenol -) 650 mg PO Q6H PRN PRN Reason: PAIN LEVEL 1-5 Last Admin: 07/27/18 22:05 Dose: 650 mg Albuterol Sulfate (Ventolin 0.083% Nebulizer Soln -) 1 amp NEB Q4H PRN PRN Reason: SHORT OF BREATH/WHEEZING Albuterol/Ipratropium (Duoneb -) 1 amp NEB RQID [facility] Last Admin: 07/28/18 07:50 Dose: 1 amp Apixaban (Eliquis -) 2.5 mg PO BID [facility] Last Admin: 07/28/18 11:17 Dose: 2.5 mg Atorvastatin Calcium (Lipitor -) 10 mg PO HS [facility] Last Admin: 07/27/18 21:54 Dose: 10 mg Budesonide/Formoterol Fumarate (Symbicort 80/4.5mcg -) 2 puff IH BID [facility] Last Admin: 07/28/18 11:18 Dose: 2 puff Clotrimazole (Lotrimin 1% Cream -) 1 applic TP BID [facility] Last Admin: 07/28/18 11:18 Dose: 1 applic Diltiazem HCl (Cardizem Cd -) 120 mg PO DAILY [facility] Last Admin: 07/28/18 11:12 Dose: 120 mg Hydralazine HCl (Apresoline -) 50 mg PO TID [facility] Last Admin: 07/28/18 06:59 Dose: 50 mg Insulin Aspart (Novolog Vial Sliding Scale -) 1 vial SQ TIDAC [facility]; Protocol Last Admin: 07/28/18 11:45 Dose: 6 units Levothyroxine Sodium (Synthroid -) 75 mcg PO DAILY@0700 [facility] Last Admin: 07/28/18 06:59 Dose: 75 mcg Multivitamins/Minerals/Vitamin C (Tab-A-Vit -) 1 tab PO DAILY [facility] Last Admin: 07/28/18 11:18 Dose: 1 tab Pantoprazole Sodium (Protonix -) 40 mg PO DAILY [facility] Last Admin: 07/28/18 11:17 Dose: 40 mg Potassium Chloride (Potassium Chloride Oral Liquid) 80 meq PO DAILY [facility] Prednisone (Deltasone -) 20 mg PO DAILY [facility] Last Admin: 07/28/18 11:17 Dose: 20 mg Torsemide (Demadex -) 80 mg PO DAILY [facility] Last Admin: 07/28/18 11:19 Dose: 80 mg A/P Acute on Chronic Hypoxic Respiratory Failure improving Pneumonia Acute Kidney Injury resolving Acute COPD Exacerbation Acute on Chronic Diastolic Heart Failure Pulmonary HTN Atrial Flutter with RVR HTN Hyperlipidemia Hypothyroidism - completed antibiotics - prednisone taper - inhaled bronchodilators standing and PRN - lasix as needed - taper FiO2 to keep SpO2>90% - rate control - anticoagulation - monitor urine output, creatinine
[2018-07-28 12:54] LABS: ANISOCYTOSIS 1+; MACROCYTOSIS 1+; PLATELET ESTIMATE NORMAL; TARGET CELLS 1+
[2018-07-28] MEDS: ACETAMINOPHEN 325 MG TABLET (FP) PO PRN (14:16)
[2018-07-28] MEDS: ATORVASTATIN CA 10 MG TABLET (FP) PO SCH (22:52)
[2018-07-29] MEDS: LEVOTHYROXINE NA 75 MCG TABLET (FP) PO SCH (06:48)
[2018-07-29] MEDS: hydrALAZINE HCL 50 MG TABLET (FP) PO SCH ×3 (06:48→22:45)
[2018-07-29] MEDS: INSULIN SLIDING SCALE (NOVOLOG) 1 VIAL SQ SCH ×3 (06:52→17:44)
[2018-07-29] MEDS: ALBUTEROL SO4 2.5/IPRATROPIUM 0.5 INH SOL 3 ML VIAL.NEB. NEB SCH ×4 (07:45→20:42)
--- NOTE | 2018-07-29 08:11 | PN ---
Progress Note, Physician Chief Complaint: Pt sitting up at bedside.No further rectal bleed. No chest pain or dyspnea, though chronically tachypneic. 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 On arrival, the patient endorses worsening dyspnea and productive cough. He also reports chronic abdominal pain 2/2 hiatal hernia. Patient denies MCGRATH, acute vision change, chest pain, BLE swelling, or changes in sensation. - Current Medication List Current Medications: Active Medications Acetaminophen (Tylenol -) 650 mg PO Q6H PRN PRN Reason: PAIN LEVEL 1-5 Last Admin: 07/28/18 14:16 Dose: 650 mg Albuterol Sulfate (Ventolin 0.083% Nebulizer Soln -) 1 amp NEB Q4H PRN PRN Reason: SHORT OF BREATH/WHEEZING Albuterol/Ipratropium (Duoneb -) 1 amp NEB RQID [facility] Last Admin: 07/28/18 20:50 Dose: 1 amp Apixaban (Eliquis -) 2.5 mg PO BID [facility] Last Admin: 07/28/18 22:52 Dose: 2.5 mg Atorvastatin Calcium (Lipitor -) 10 mg PO HS [facility] Last Admin: 07/28/18 22:52 Dose: 10 mg Budesonide/Formoterol Fumarate (Symbicort 80/4.5mcg -) 2 puff IH BID [facility] Last Admin: 07/28/18 22:53 Dose: 2 puff Clotrimazole (Lotrimin 1% Cream -) 1 applic TP BID [facility] Last Admin: 07/28/18 22:52 Dose: 1 applic Diltiazem HCl (Cardizem Cd -) 120 mg PO DAILY [facility] Last Admin: 07/28/18 11:12 Dose: 120 mg Hydralazine HCl (Apresoline -) 50 mg PO TID [facility] Last Admin: 07/29/18 06:48 Dose: 50 mg Insulin Aspart (Novolog Vial Sliding Scale -) 1 vial SQ TIDAC [facility]; Protocol Last Admin: 07/29/18 06:52 Dose: Not Given Levothyroxine Sodium (Synthroid -) 75 mcg PO DAILY@0700 [facility] Last Admin: 07/29/18 06:48 Dose: 75 mcg Multivitamins/Minerals/Vitamin C (Tab-A-Vit -) 1 tab PO DAILY [facility] Last Admin: 07/28/18 11:18 Dose: 1 tab Pantoprazole Sodium (Protonix -) 40 mg PO DAILY [facility] Last Admin: 07/28/18 11:17 Dose: 40 mg Potassium Chloride (Potassium Chloride Oral Liquid) 80 meq PO DAILY [facility] Prednisone (Deltasone -) 20 mg PO DAILY [facility] Last Admin: 07/28/18 11:17 Dose: 20 mg Torsemide (Demadex -) 80 mg PO DAILY [facility] Last Admin: 07/28/18 11:19 Dose: 80 mg - Objective Vital Signs: Vital Signs Temperature 97.5 F L 07/29/18 06:00 Pulse Rate 96 H 07/29/18 06:00 Respiratory Rate 20 07/29/18 06:00 Blood Pressure 113/62 07/29/18 06:00 O2 Sat by Pulse Oximetry (%) 96 07/28/18 21:00 Constitutional: Yes: Calm Eyes: Yes: WNL HENT: Yes: WNL Neck: Yes: WNL Cardiovascular: Yes: S1 (varies in intensity), S2 (split) Respiratory: Yes: Diminished, Tachypnea Gastrointestinal: Yes: Soft ...Rectal Exam: Yes: Deferred Genitourinary: No: Anuria Musculoskeletal: Yes: Muscle Weakness Extremities: Yes: Cool Edema: No Peripheral Pulses WNL: Yes Integumentary: Yes: WNL Neurological: Yes: Alert, Oriented, Weakness Psychiatric: Yes: WNL Labs: INR, PTT INR 2.08 (0.83-1.09) H 06/24/18 11:30 Problem List - Problems (1) Atrial flutter Assessment/Plan: On diltiazem CD 120 mg daily for HR control. HR varies from 90s at rest to 130s transiently when he sits up. Continue apixaban for anticoagulation. Replete K; f/u all electrolytes. Code(s): I48.92 - UNSPECIFIED ATRIAL FLUTTER (2) CKD (chronic kidney disease) Code(s): N18.9 - CHRONIC KIDNEY DISEASE, UNSPECIFIED Qualifiers: Chronic kidney disease stage: unspecified stage Qualified Code(s): N18.9 - Chronic kidney disease, unspecified (3) COPD exacerbation Code(s): J44.1 - CHRONIC OBSTRUCTIVE PULMONARY DISEASE W (ACUTE) EXACERBATION (4) Chronic diastolic CHF (congestive heart failure) Code(s): I50.32 - CHRONIC DIASTOLIC (CONGESTIVE) HEART FAILURE (5) GERD (gastroesophageal reflux disease) Code(s): K21.9 - GASTRO-ESOPHAGEAL REFLUX DISEASE WITHOUT ESOPHAGITIS (6) HTN (hypertension) Code(s): I10 - ESSENTIAL (PRIMARY) HYPERTENSION Qualifiers: Hypertension type: essential hypertension Qualified Code(s): I10 - Essential (primary) hypertension (7) Hypothyroidism Code(s): E03.9 - HYPOTHYROIDISM, UNSPECIFIED Qualifiers: Hypothyroidism type: unspecified Qualified Code(s): E03.9 - Hypothyroidism , unspecified (8) Renal dysfunction Assessment/Plan: On furosemide and metalazone, per canvassing manager. Good urinary output. Code(s): N28.9 - DISORDER OF KIDNEY AND URETER, UNSPECIFIED (9) Pulmonary HTN Assessment/Plan: RVSP likely moderately severe (noted significant TR on ECHO, which also showed normal LVEF; moderately dilated RA, mildly dilated RV, borderline reduced RVEF, mild LAE, mild MR, moderate MA) Code(s): I27.20 - PULMONARY HYPERTENSION, UNSPECIFIED (10) Hypokalemia Code(s): E87.6 - HYPOKALEMIA
[2018-07-29 08:19] LABS: BASO % 0.1 % (0-2.0); EOS % 0.4 % (0-4.5); HEMATOCRIT 31.3 % (35.4-49); MCH 26.8 pg (25.7-33.7); MEAN CELL VOLUME 83.7 fl (80-96); MEAN PLT VOLUME 7.8 fl (7.5-11.1); MONO % 5.4 % (3.8-10.2); NEUT % 92.1 % (42.8-82.8); PLATELET COUNT 217 K/MM3 (134-434); RBC 3.74 M/mm3 (4.00-5.60); RDW 24.7 % (11.9-15.9); WHITE BLOOD COUNT 19.4 K/mm3 (4.0-10.0)
--- NOTE | 2018-07-29 08:20 | PN ---
Progress Note, Physician Chief Complaint: Pt resting more comfortably..No further rectal bleed. 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 On arrival, the patient endorses worsening dyspnea and productive cough. He also reports chronic abdominal pain 2/2 hiatal hernia. Patient denies MCGRATH, acute vision change, chest pain, BLE swelling, or changes in sensation. - Current Medication List Current Medications: Active Medications Acetaminophen (Tylenol -) 650 mg PO Q6H PRN PRN Reason: PAIN LEVEL 1-5 Last Admin: 07/28/18 14:16 Dose: 650 mg Albuterol Sulfate (Ventolin 0.083% Nebulizer Soln -) 1 amp NEB Q4H PRN PRN Reason: SHORT OF BREATH/WHEEZING Albuterol/Ipratropium (Duoneb -) 1 amp NEB RQID [facility] Last Admin: 07/28/18 20:50 Dose: 1 amp Apixaban (Eliquis -) 2.5 mg PO BID [facility] Last Admin: 07/28/18 22:52 Dose: 2.5 mg Atorvastatin Calcium (Lipitor -) 10 mg PO HS [facility] Last Admin: 07/28/18 22:52 Dose: 10 mg Budesonide/Formoterol Fumarate (Symbicort 80/4.5mcg -) 2 puff IH BID [facility] Last Admin: 07/28/18 22:53 Dose: 2 puff Clotrimazole (Lotrimin 1% Cream -) 1 applic TP BID [facility] Last Admin: 07/28/18 22:52 Dose: 1 applic Diltiazem HCl (Cardizem Cd -) 120 mg PO DAILY [facility] Last Admin: 07/28/18 11:12 Dose: 120 mg Hydralazine HCl (Apresoline -) 50 mg PO TID [facility] Last Admin: 07/29/18 06:48 Dose: 50 mg Insulin Aspart (Novolog Vial Sliding Scale -) 1 vial SQ TIDAC [facility]; Protocol Last Admin: 07/29/18 06:52 Dose: Not Given Levothyroxine Sodium (Synthroid -) 75 mcg PO DAILY@0700 [facility] Last Admin: 07/29/18 06:48 Dose: 75 mcg Multivitamins/Minerals/Vitamin C (Tab-A-Vit -) 1 tab PO DAILY [facility] Last Admin: 07/28/18 11:18 Dose: 1 tab Pantoprazole Sodium (Protonix -) 40 mg PO DAILY [facility] Last Admin: 07/28/18 11:17 Dose: 40 mg Potassium Chloride (Potassium Chloride Oral Liquid) 80 meq PO DAILY [facility] Prednisone (Deltasone -) 20 mg PO DAILY [facility] Last Admin: 07/28/18 11:17 Dose: 20 mg Torsemide (Demadex -) 80 mg PO DAILY [facility] Last Admin: 07/28/18 11:19 Dose: 80 mg - Objective Vital Signs: Vital Signs Temperature 97.5 F L 07/29/18 06:00 Pulse Rate 96 H 07/29/18 06:00 Respiratory Rate 20 07/29/18 06:00 Blood Pressure 113/62 07/29/18 06:00 O2 Sat by Pulse Oximetry (%) 96 07/28/18 21:00 Labs: INR, PTT INR 2.08 (0.83-1.09) H 06/24/18 11:30 Problem List - Problems (1) Atrial flutter Assessment/Plan: On diltiazem CD 120 mg daily for HR control. HR varies from 90s at rest to 130s transiently when he sits up. Continue apixaban for anticoagulation. No further bleed. (If bleeding is an issue, consider changing to Pradaxa, as a reversal agent exists, and is carried by pharmacy at [facility]). Replete K; f/u all electrolytes. Code(s): I48.92 - UNSPECIFIED ATRIAL FLUTTER (2) CKD (chronic kidney disease) Assessment/Plan: On daily furosemide for CHF. Code(s): N18.9 - CHRONIC KIDNEY DISEASE, UNSPECIFIED Qualifiers: Chronic kidney disease stage: unspecified stage Qualified Code(s): N18.9 - Chronic kidney disease, unspecified (3) COPD exacerbation Code(s): J44.1 - CHRONIC OBSTRUCTIVE PULMONARY DISEASE W (ACUTE) EXACERBATION (4) Chronic diastolic CHF (congestive heart failure) Code(s): I50.32 - CHRONIC DIASTOLIC (CONGESTIVE) HEART FAILURE (5) GERD (gastroesophageal reflux disease) Code(s): K21.9 - GASTRO-ESOPHAGEAL REFLUX DISEASE WITHOUT ESOPHAGITIS Qualifiers: Esophagitis presence: esophagitis presence not specified Qualified Code(s) : K21.9 - Gastro-esophageal reflux disease without esophagitis (6) HTN (hypertension) Code(s): I10 - ESSENTIAL (PRIMARY) HYPERTENSION Qualifiers: Hypertension type: essential hypertension Qualified Code(s): I10 - Essential (primary) hypertension (7) Hypothyroidism Code(s): E03.9 - HYPOTHYROIDISM, UNSPECIFIED Qualifiers: Hypothyroidism type: unspecified Qualified Code(s): E03.9 - Hypothyroidism , unspecified (8) Renal dysfunction Code(s): N28.9 - DISORDER OF KIDNEY AND URETER, UNSPECIFIED (9) Pulmonary HTN Code(s): I27.20 - PULMONARY HYPERTENSION, UNSPECIFIED (10) Hypokalemia Code(s): E87.6 - HYPOKALEMIA
[2018-07-29 10:01] LABS: ALBUMIN 2.7 g/dl (3.4-5.0); ALK PHOS 60 U/L (45-117); ANION GAP 13 MMOL/L (8-16); BILIRUBIN,TOTAL 0.6 mg/dL (0.2-1); BLOOD UREA NITROGEN 82 mg/dL (7-18); CALCIUM 8.4 mg/dL (8.5-10.1); CHLORIDE 101 mmol/L (98-107); CO2 33 mmol/L (21-32); CREATININE 1.5 mg/dL (0.55-1.3); GLUCOSE,RANDOM 79 mg/dL (74-106); MAGNESIUM 2.3 mg/dL (1.8-2.4); POTASSIUM 3.3 mmol/L (3.5-5.1); SGOT/AST 12 U/L (15-37); SGPT/ALT 27 U/L (13-61); SODIUM 147 mmol/L (136-145); TOT PROT 5.7 g/dl (6.4-8.2)
[2018-07-29 10:24] LABS: ANISOCYTOSIS 3+; PLATELET ESTIMATE ADEQUATE
[2018-07-29 10:25] LABS: TARGET CELLS 1+
--- NOTE | 2018-07-29 10:33 | PN ---
Progress Note (short form) - Note Progress Note: Renal follow up for ANNALISA Pt seen and examined at the bedside no acute complaints denies any acute sob making urine Vital Signs Temperature 97.5 F L 07/29/18 06:00 Pulse Rate 96 H 07/29/18 06:00 Respiratory Rate 20 07/29/18 06:00 Blood Pressure 113/62 07/29/18 06:00 O2 Sat by Pulse Oximetry (%) 96 07/28/18 21:00 Intake & Output 07/26/18 07/27/18 07/28/18 07/29/18 23:59 23:59 23:59 23:59 Intake Total 1650 600 Balance 1650 600 Weight 71.395 kg 70.67 kg 68.855 kg NAD on BIPAP RRR Dec BS, No LE edema CBC, BMP 07/29/18 07:00 07/29/18 07:00 Current Medications Acetaminophen (Tylenol -) 650 mg PO Q6H PRN PRN Reason: PAIN LEVEL 1-5 Last Admin: 07/28/18 14:16 Dose: 650 mg Albuterol Sulfate (Ventolin 0.083% Nebulizer Soln -) 1 amp NEB Q4H PRN PRN Reason: SHORT OF BREATH/WHEEZING Albuterol/Ipratropium (Duoneb -) 1 amp NEB RQID [facility] Last Admin: 07/28/18 20:50 Dose: 1 amp Apixaban (Eliquis -) 2.5 mg PO BID [facility] Last Admin: 07/28/18 22:52 Dose: 2.5 mg Atorvastatin Calcium (Lipitor -) 10 mg PO HS [facility] Last Admin: 07/28/18 22:52 Dose: 10 mg Budesonide/Formoterol Fumarate (Symbicort 80/4.5mcg -) 2 puff IH BID [facility] Last Admin: 07/28/18 22:53 Dose: 2 puff Clotrimazole (Lotrimin 1% Cream -) 1 applic TP BID [facility] Last Admin: 07/28/18 22:52 Dose: 1 applic Diltiazem HCl (Cardizem Cd -) 120 mg PO DAILY [facility] Last Admin: 07/28/18 11:12 Dose: 120 mg Hydralazine HCl (Apresoline -) 50 mg PO TID [facility] Last Admin: 07/29/18 06:48 Dose: 50 mg Insulin Aspart (Novolog Vial Sliding Scale -) 1 vial SQ TIDAC [facility]; Protocol Last Admin: 07/29/18 06:52 Dose: Not Given Levothyroxine Sodium (Synthroid -) 75 mcg PO DAILY@0700 [facility] Last Admin: 07/29/18 06:48 Dose: 75 mcg Multivitamins/Minerals/Vitamin C (Tab-A-Vit -) 1 tab PO DAILY [facility] Last Admin: 07/28/18 11:18 Dose: 1 tab Pantoprazole Sodium (Protonix -) 40 mg PO DAILY [facility] Last Admin: 07/28/18 11:17 Dose: 40 mg Potassium Chloride (Potassium Chloride Oral Liquid) 80 meq PO DAILY [facility] Prednisone (Deltasone -) 20 mg PO DAILY [facility] Last Admin: 07/28/18 11:17 Dose: 20 mg Torsemide (Demadex -) 80 mg PO DAILY [facility] Last Admin: 07/28/18 11:19 Dose: 80 mg 82 year old AA gentleman with history of CKD, Hyperlipidemia, CHF, COPD, Afib, Hypothyroidism who presented with SOB and Fever and found to have PNA + CHF and developed ANNALISA. #ANNALISA on CKD #CKD #PNA #CHF improving #COPD/Reactive airway disease #Anemia #Gallstones/Gallbladder wall thickening #Rectal bleeding Renal function stable, respiratory status impoved stable for discharge on torsemide 80mg daily and KCL 80 meq daily will need repeat labs in 3-4 days as outpatient at at least once weekly steroids as per pulmonary avoid nsaids, IV contrast, kiley Veras DO
[2018-07-29] MEDS ORDERED: PT OWN MED DRAWER 7, Y5N ONE ×3 (10:41→22:33)
[2018-07-29] MEDS: APIXABAN 2.5 MG TABLET PO SCH ×2 (10:59→22:45)
[2018-07-29] MEDS: PANTOPRAZOLE 40 MG TABLET (FP) PO SCH (10:59)
[2018-07-29] MEDS: POTASSIUM CHLORIDE ORAL LIQUID 20 MEQ/15 ML PO SCH (11:00)
[2018-07-29] MEDS: MULTIVITAMINS (DAILY MVI) TABLET (FP) PO SCH (11:00)
[2018-07-29] MEDS: predniSONE 20 MG TABLET (UD) PO SCH (11:00)
[2018-07-29] MEDS: BUDESONIDE/FORMETEROL FUMARATE 80/4.5 mcg INHALER IH SCH ×2 (11:01→22:46)
[2018-07-29] MEDS: CLOTRIMAZOLE 1% CREAM 15 GM TUBE TP SCH ×2 (11:01→22:46)
[2018-07-29] MEDS: TORSEMIDE 20 MG TABLET (FP) PO SCH (11:01)
[2018-07-29] MEDS ORDERED: INSULIN (NOVOLOG) ASPART 100 UNITS/ML 10ML VIAL ONE ×2 (11:09→19:02)
[2018-07-29] MEDS: ACETAMINOPHEN 325 MG TABLET (FP) PO PRN ×2 (11:21→22:47)
--- NOTE | 2018-07-29 13:26 | PN ---
Progress Note (short form) - Note Progress Note: PULMONARY Breathing better today. No cough or wheezing. Vital Signs Period Temp Pulse Resp BP Sys/[place] Pulse Ox Last 24 Hr 97.5 F-98.2 F 77-96 20-20 106-126/59-77 96 Gen: NAD at rest Heart: RRR Lung: distant breath sounds Abd: soft, nontender Ext: no edema CBC, BMP 07/29/18 07:00 07/29/18 07:00 Active Medications Acetaminophen (Tylenol -) 650 mg PO Q6H PRN PRN Reason: PAIN LEVEL 1-5 Last Admin: 07/29/18 11:21 Dose: 650 mg Albuterol Sulfate (Ventolin 0.083% Nebulizer Soln -) 1 amp NEB Q4H PRN PRN Reason: SHORT OF BREATH/WHEEZING Albuterol/Ipratropium (Duoneb -) 1 amp NEB RQID [facility] Last Admin: 07/29/18 11:30 Dose: 1 amp Apixaban (Eliquis -) 2.5 mg PO BID [facility] Last Admin: 07/29/18 10:59 Dose: 2.5 mg Atorvastatin Calcium (Lipitor -) 10 mg PO HS [facility] Last Admin: 07/28/18 22:52 Dose: 10 mg Budesonide/Formoterol Fumarate (Symbicort 80/4.5mcg -) 2 puff IH BID [facility] Last Admin: 07/29/18 11:01 Dose: 2 puff Clotrimazole (Lotrimin 1% Cream -) 1 applic TP BID [facility] Last Admin: 07/29/18 11:01 Dose: 1 applic Diltiazem HCl (Cardizem Cd -) 120 mg PO DAILY [facility] Last Admin: 07/29/18 10:59 Dose: 120 mg Hydralazine HCl (Apresoline -) 50 mg PO TID [facility] Last Admin: 07/29/18 06:48 Dose: 50 mg Insulin Aspart (Novolog Vial Sliding Scale -) 1 vial SQ TIDAC [facility]; Protocol Last Admin: 07/29/18 11:11 Dose: 6 units Levothyroxine Sodium (Synthroid -) 75 mcg PO DAILY@0700 [facility] Last Admin: 07/29/18 06:48 Dose: 75 mcg Multivitamins/Minerals/Vitamin C (Tab-A-Vit -) 1 tab PO DAILY [facility] Last Admin: 07/29/18 11:00 Dose: 1 tab Pantoprazole Sodium (Protonix -) 40 mg PO DAILY [facility] Last Admin: 07/29/18 10:59 Dose: 40 mg Potassium Chloride (Potassium Chloride Oral Liquid) 80 meq PO DAILY [facility] Last Admin: 07/29/18 11:00 Dose: 80 meq Prednisone (Deltasone -) 20 mg PO DAILY [facility] Last Admin: 07/29/18 11:00 Dose: 20 mg Torsemide (Demadex -) 80 mg PO DAILY [facility] Last Admin: 07/29/18 11:01 Dose: 80 mg A/P Acute on Chronic Hypoxic Respiratory Failure improving Pneumonia Acute Kidney Injury resolving Acute COPD Exacerbation Acute on Chronic Diastolic Heart Failure Pulmonary HTN Atrial Flutter with RVR HTN Hyperlipidemia Hypothyroidism - completed antibiotics - prednisone taper - inhaled bronchodilators standing and PRN - lasix as needed - taper FiO2 to keep SpO2>90% - rate control - anticoagulation - monitor urine output, creatinine
--- NOTE | 2018-07-29 15:17 | PN ---
Progress Note (short form) - Note Progress Note: pt seen/ examined. comfortable. all f/u noted has bm denies pain. no further bleeding Vital Signs Temp 97.5 F L 07/29/18 06:00 Pulse 88 07/29/18 15:00 Resp 20 07/29/18 15:00 BP 110/74 07/29/18 15:00 Pulse Ox 96 07/28/18 21:00 Intake & Output 07/28/18 07/29/18 07/29/18 23:59 11:59 23:59 Intake Total 600 Balance 600 Weight 151 lb 12.8 oz Intake: Oral 600 Other: Voiding Method Incontinent Incontinent # Unmeasured Voids Void 6 3 Bowel Movement Yes Yes Yes # Bowel Movements 3 2 1 Weight Measurement Method Patient Lift Scale Active Medications Acetaminophen (Tylenol -) 650 mg PO Q6H PRN PRN Reason: PAIN LEVEL 1-5 Last Admin: 07/29/18 11:21 Dose: 650 mg Albuterol Sulfate (Ventolin 0.083% Nebulizer Soln -) 1 amp NEB Q4H PRN PRN Reason: SHORT OF BREATH/WHEEZING Albuterol/Ipratropium (Duoneb -) 1 amp NEB RQID [facility] Last Admin: 07/29/18 11:30 Dose: 1 amp Apixaban (Eliquis -) 2.5 mg PO BID [facility] Last Admin: 07/29/18 10:59 Dose: 2.5 mg Atorvastatin Calcium (Lipitor -) 10 mg PO HS [facility] Last Admin: 07/28/18 22:52 Dose: 10 mg Budesonide/Formoterol Fumarate (Symbicort 80/4.5mcg -) 2 puff IH BID [facility] Last Admin: 07/29/18 11:01 Dose: 2 puff Clotrimazole (Lotrimin 1% Cream -) 1 applic TP BID [facility] Last Admin: 07/29/18 11:01 Dose: 1 applic Diltiazem HCl (Cardizem Cd -) 120 mg PO DAILY [facility] Last Admin: 07/29/18 10:59 Dose: 120 mg Hydralazine HCl (Apresoline -) 50 mg PO TID [facility] Last Admin: 07/29/18 15:00 Dose: 50 mg Insulin Aspart (Novolog Vial Sliding Scale -) 1 vial SQ TIDAC [facility]; Protocol Last Admin: 07/29/18 11:11 Dose: 6 units Levothyroxine Sodium (Synthroid -) 75 mcg PO DAILY@0700 [facility] Last Admin: 07/29/18 06:48 Dose: 75 mcg Multivitamins/Minerals/Vitamin C (Tab-A-Vit -) 1 tab PO DAILY [facility] Last Admin: 07/29/18 11:00 Dose: 1 tab Pantoprazole Sodium (Protonix -) 40 mg PO DAILY [facility] Last Admin: 07/29/18 10:59 Dose: 40 mg Potassium Chloride (Potassium Chloride Oral Liquid) 80 meq PO DAILY [facility] Last Admin: 07/29/18 11:00 Dose: 80 meq Prednisone (Deltasone -) 20 mg PO DAILY [facility] Last Admin: 07/29/18 11:00 Dose: 20 mg Torsemide (Demadex -) 80 mg PO DAILY [facility] Last Admin: 07/29/18 11:01 Dose: 80 mg CBC, BMP 07/29/18 07:00 07/29/18 07:00 Physical Examination Constitutional: Yes: alert and awake Eyes: Yes: Conjunctiva Clear Neck: Yes: Supple, Other (no jvd) Cardiovascular: Yes: Pulse Irregular. Respiratory: Yes: decreased breath sounds B/l --- scattered rhonchi-- bilaterally Gastrointestinal: Yes: Soft/ non tender . bowel sound present,No rigidity or rebound no edema Neurological: Yes: Alert Psychiatric: Yes: Alert Assessment/Plan clinically stable GI bleed monitor h/h restarted anticoagulations with caution Monitor CBC/Electrolytes cbc in am If stable will discharge tomorrow Discussed with patient--- Will follow Problem List - Problems (1) Respiratory failure with hypoxia Code(s): J96.91 - RESPIRATORY FAILURE, UNSPECIFIED WITH HYPOXIA (2) Chronic diastolic CHF (congestive heart failure) Code(s): I50.32 - CHRONIC DIASTOLIC (CONGESTIVE) HEART FAILURE (3) HTN (hypertension) Code(s): I10 - ESSENTIAL (PRIMARY) HYPERTENSION Qualifiers: Hypertension type: essential hypertension Qualified Code(s): I10 - Essential (primary) hypertension (4) Hypothyroidism Code(s): E03.9 - HYPOTHYROIDISM, UNSPECIFIED Qualifiers: Hypothyroidism type: unspecified Qualified Code(s): E03.9 - Hypothyroidism , unspecified (5) Paroxysmal A-fib Code(s): I48.0 - PAROXYSMAL ATRIAL FIBRILLATION
[2018-07-29] MEDS: ATORVASTATIN CA 10 MG TABLET (FP) PO SCH (22:46)
[2018-07-30] MEDS: INSULIN SLIDING SCALE (NOVOLOG) 1 VIAL SQ SCH ×3 (07:02→18:03)
[2018-07-30] MEDS: LEVOTHYROXINE NA 75 MCG TABLET (FP) PO SCH (07:03)
[2018-07-30] MEDS: ALBUTEROL SO4 2.5/IPRATROPIUM 0.5 INH SOL 3 ML VIAL.NEB. NEB SCH ×4 (07:30→20:29)
[2018-07-30 07:53] LABS: BASO % 0.2 % (0-2.0); EOS % 0.5 % (0-4.5); HEMATOCRIT 31.2 % (35.4-49); HEMOGLOBIN 9.9 GM/dL (11.7-16.9); MCH 26.6 pg (25.7-33.7); MCHC 31.9 g/dl (32.0-35.9); MEAN CELL VOLUME 83.3 fl (80-96); MEAN PLT VOLUME 7.4 fl (7.5-11.1); MONO % 5.7 % (3.8-10.2); NEUT % 91.6 % (42.8-82.8); PLATELET COUNT 194 K/MM3 (134-434); RBC 3.74 M/mm3 (4.00-5.60); RDW 24.5 % (11.9-15.9); WHITE BLOOD COUNT 18.3 K/mm3 (4.0-10.0)
[2018-07-30] MEDS ORDERED: PT OWN MED DRAWER 7, Y5N ONE (09:59)
[2018-07-30 10:10] LABS: ANISOCYTOSIS 2+; MACROCYTOSIS 0; PLATELET ESTIMATE NORMAL
[2018-07-30] MEDS: hydrALAZINE HCL 50 MG TABLET (FP) PO SCH ×3 (10:20→22:06)
[2018-07-30] MEDS: BUDESONIDE/FORMETEROL FUMARATE 80/4.5 mcg INHALER IH SCH ×2 (10:21→22:08)
[2018-07-30] MEDS: predniSONE 20 MG TABLET (UD) PO SCH (10:21)
[2018-07-30] MEDS: PANTOPRAZOLE 40 MG TABLET (FP) PO SCH (10:21)
[2018-07-30] MEDS: MULTIVITAMINS (DAILY MVI) TABLET (FP) PO SCH (10:21)
[2018-07-30] MEDS: APIXABAN 2.5 MG TABLET PO SCH ×2 (10:21→22:07)
[2018-07-30] MEDS: POTASSIUM CHLORIDE ORAL LIQUID 20 MEQ/15 ML PO SCH (10:22)
[2018-07-30] MEDS: CLOTRIMAZOLE 1% CREAM 15 GM TUBE TP SCH ×2 (10:22→22:08)
[2018-07-30] MEDS: TORSEMIDE 20 MG TABLET (FP) PO SCH (10:22)
--- NOTE | 2018-07-30 10:40 | DS ---
Physical Examination Vital Signs: Vital Signs Temperature 98 F 07/30/18 10:00 Pulse Rate 93 H 07/30/18 10:00 Respiratory Rate 22 H 07/30/18 10:00 Blood Pressure 115/70 07/30/18 10:00 O2 Sat by Pulse Oximetry (%) 98 07/30/18 09:00 Findings/Remarks: dictated. Labs: CBC, BMP 07/30/18 07:20 07/29/18 07:00 Discharge Summary Reason For Visit: HYPERTENSION/HYPOXIA/OBS PUL DIS Current Active Problems Atrial flutter (Acute) CKD (chronic kidney disease) (Acute) COPD exacerbation (Acute) Chronic diastolic CHF (congestive heart failure) (Acute) GERD (gastroesophageal reflux disease) (Acute) HTN (hypertension) (Acute) Hypokalemia (Acute) Hypothyroidism (Acute) Paroxysmal A-fib (Acute) Penicillin allergy (Acute) Pneumonia (Acute) Pulmonary HTN (Acute) Rectal bleeding (Acute) Renal dysfunction (Acute) Respiratory failure with hypoxia (Acute) Condition: Improved - Instructions Referrals: Ham Bennett MD [Primary Care Provider] - Disposition: [facility] - Home Medications Comprehensive Discharge Medication List: Ambulatory Orders Albuterol 2.5/Ipratropium 0.5 [Duoneb -] 1 neb IH QID 06/24/18 Albuterol Sulfate Inhaler - [Ventolin HFA Inhaler -] 1 puff IH DAILY 06/24/18 Apixaban [Eliquis] 2.5 mg PO BID 06/24/18 Fluticasone Propionate [Flovent Diskus] 50 mcg IH BID 06/24/18 Fluticasone/Salmeterol [Advair 250-50 Diskus] 1 each IH BID 06/24/18 Levothyroxine [Synthroid -] 75 mcg PO DAILY 06/24/18 Multivit-Min/FA/Lycopen/Lutein [Centrum Silver Tablet] 1 each PO DAILY 06/24/18 Pantoprazole Sodium [Protonix] 40 mg PO DAILY 06/24/18 Simvastatin 10 mg PO DAILY 06/24/18 Diltiazem Cd [Cardizem Cd -] 120 mg PO DAILY #30 cap.cd.24h 07/26/18 Insulin Sliding Scale [Novolog Vial Sliding Scale -] 1 units SQ TIDAC #1 pen Torsemide [Demadex -] 80 mg PO DAILY #20 tablet 07/26/18 predniSONE [Deltasone -] See Taper PO DAILY #20 tablet 07/26/18 Apixaban [Eliquis -] 2.5 mg PO BID tablet 07/30/18 Clotrimazole [Lotrimin -] 1 applic TP BID tube 07/30/18 Insulin Sliding Scale [Novolog Vial Sliding Scale -] 1 vial SQ TIDAC units 11/16 Potassium Chloride [Potassium Chloride Oral Liquid] 80 meq PO DAILY cup hydrALAZINE HCL [Apresoline -] 25 mg PO TID tablet 07/30/18
--- NOTE | 2018-07-30 12:12 | PN ---
Progress Note, Physician History of Present Illness: Patient is a 82 year old male was sent from [facility] for worsening SOB. Patient reports that since many years he has had SOB due to COPD, has been on Oxygen intermittently for 6 yrs but since October,, has been using continuously. Since few days before admission, he had SOB, worsening, associated with wheezing, cough. It was productive, yellowish sputum. Denies chest pain, palpitation, abdominal pain, nausea or vomiting. Bowel/Bladder habit normal. Bowel movement was yesterday. Sleep/Appetite normal. 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 Smoking: Quit in 1955, smoked for 15 yrs, < 1pack/day Alcohol: Occasional quit years ago Drugs: Denies - Current Medication List Current Medications: Active Medications Acetaminophen (Tylenol -) 650 mg PO Q6H PRN PRN Reason: PAIN LEVEL 1-5 Last Admin: 07/29/18 22:47 Dose: 650 mg Albuterol Sulfate (Ventolin 0.083% Nebulizer Soln -) 1 amp NEB Q4H PRN PRN Reason: SHORT OF BREATH/WHEEZING Albuterol/Ipratropium (Duoneb -) 1 amp NEB RQID [facility] Last Admin: 07/30/18 11:25 Dose: 1 amp Apixaban (Eliquis -) 2.5 mg PO BID [facility] Last Admin: 07/30/18 10:21 Dose: 2.5 mg Atorvastatin Calcium (Lipitor -) 10 mg PO HS [facility] Last Admin: 07/29/18 22:46 Dose: 10 mg Budesonide/Formoterol Fumarate (Symbicort 80/4.5mcg -) 2 puff IH BID [facility] Last Admin: 07/30/18 10:21 Dose: 2 puff Clotrimazole (Lotrimin 1% Cream -) 1 applic TP BID [facility] Last Admin: 07/30/18 10:22 Dose: 1 applic Diltiazem HCl (Cardizem Cd -) 120 mg PO DAILY [facility] Last Admin: 10/01/18 10:21 Dose: 120 mg Hydralazine HCl (Apresoline -) 50 mg PO TID [facility] Last Admin: 07/30/18 10:20 Dose: Not Given Insulin Aspart (Novolog Vial Sliding Scale -) 1 vial SQ TIDAC [facility]; Protocol Last Admin: 07/30/18 12:00 Dose: 6 units Levothyroxine Sodium (Synthroid -) 75 mcg PO DAILY@0700 [facility] Last Admin: 07/30/18 07:03 Dose: 75 mcg Multivitamins/Minerals/Vitamin C (Tab-A-Vit -) 1 tab PO DAILY [facility] Last Admin: 07/30/18 10:21 Dose: 1 tab Pantoprazole Sodium (Protonix -) 40 mg PO DAILY [facility] Last Admin: 07/30/18 10:21 Dose: 40 mg Potassium Chloride (Potassium Chloride Oral Liquid) 80 meq PO DAILY [facility] Last Admin: 07/30/18 10:22 Dose: 80 meq Prednisone (Deltasone -) 20 mg PO DAILY [facility] Last Admin: 07/30/18 10:21 Dose: 20 mg Torsemide (Demadex -) 80 mg PO DAILY [facility] Last Admin: 07/30/18 10:22 Dose: 80 mg - Objective Vital Signs: Vital Signs Temperature 98 F 07/30/18 10:00 Pulse Rate 93 H 07/30/18 10:00 Respiratory Rate 22 H 07/30/18 10:00 Blood Pressure 115/70 07/30/18 10:00 O2 Sat by Pulse Oximetry (%) 98 07/30/18 09:00 Eyes: Yes: WNL, Conjunctiva Clear, EOM Intact HENT: Yes: WNL, Atraumatic, Normocephalic Neck: Yes: WNL, Supple, Trachea Midline Cardiovascular: Yes: Pulse Irregular, S1, S2 Respiratory: Yes: WNL, Regular, CTA Bilaterally Gastrointestinal: Yes: WNL, Normal Bowel Sounds Genitourinary: Yes: WNL Musculoskeletal: Yes: WNL Extremities: Yes: WNL Edema: No Integumentary: Yes: WNL Neurological: Yes: WNL, Alert, Oriented ...Motor Strength: WNL Psychiatric: Yes: WNL Labs: CBC, BMP 07/30/18 07:20 07/29/18 07:00 INR, PTT INR 2.08 (0.83-1.09) H 06/24/18 11:30 Assessment/Plan Problems (1) Atrial flutter Assessment/Plan: On diltiazem CD 120 mg daily for HR control. HR varies from 90s at rest to 130s transiently when he sits up. Continue apixaban for anticoagulation. No further bleed. (If bleeding is an issue, consider changing to Pradaxa, as a reversal agent exists, and is carried by pharmacy at [facility]). Replete K; f/u all electrolytes. Code(s): I48.92 - UNSPECIFIED ATRIAL FLUTTER (2) CKD (chronic kidney disease) Assessment/Plan: On daily furosemide for CHF. Code(s): N18.9 - CHRONIC KIDNEY DISEASE, UNSPECIFIED Qualifiers: Chronic kidney disease stage: unspecified stage Qualified Code(s): N18.9 - Chronic kidney disease, unspecified (3) COPD exacerbation Code(s): J44.1 - CHRONIC OBSTRUCTIVE PULMONARY DISEASE W (ACUTE) EXACERBATION (4) Chronic diastolic CHF (congestive heart failure) Code(s): I50.32 - CHRONIC DIASTOLIC (CONGESTIVE) HEART FAILURE (5) GERD (gastroesophageal reflux disease) Code(s): K21.9 - GASTRO-ESOPHAGEAL REFLUX DISEASE WITHOUT ESOPHAGITIS Qualifiers: Esophagitis presence: esophagitis presence not specified Qualified Code(s) : K21.9 - Gastro-esophageal reflux disease without esophagitis (6) HTN (hypertension) Code(s): I10 - ESSENTIAL (PRIMARY) HYPERTENSION Qualifiers: Hypertension type: essential hypertension Qualified Code(s): I10 - Essential (primary) hypertension (7) Hypothyroidism Code(s): E03.9 - HYPOTHYROIDISM, UNSPECIFIED Qualifiers: Hypothyroidism type: unspecified Qualified Code(s): E03.9 - Hypothyroidism , unspecified (8) Renal dysfunction Code(s): N28.9 - DISORDER OF KIDNEY AND URETER, UNSPECIFIED (9) Pulmonary HTN Code(s): I27.20 - PULMONARY HYPERTENSION, UNSPECIFIED (10) Hypokalemia Code(s): E87.6 - HYPOKALEMIA
--- NOTE | 2018-07-30 13:03 | PN ---
Progress Note (short form) - Note Progress Note: Overall breathing has been improving. No CP or SOB. No acute events overnight. Intake & Output 07/27/18 07/28/18 07/29/18 07/30/18 23:59 23:59 23:59 23:59 Intake Total 1650 600 800 480 Output Total 400 Balance 1650 600 800 80 Weight 155 lb 12.8 oz 151 lb 12.8 oz 153 lb 3.2 oz Last Vital Signs Temp Pulse Resp BP Pulse Ox 98 F 93 H 22 H 115/70 98 07/30/18 10:00 07/30/18 10:00 07/30/18 10:00 07/30/18 10:00 07/30/18 09:00 Active Medications Acetaminophen (Tylenol -) 650 mg PO Q6H PRN PRN Reason: PAIN LEVEL 1-5 Last Admin: 07/29/18 22:47 Dose: 650 mg Albuterol Sulfate (Ventolin 0.083% Nebulizer Soln -) 1 amp NEB Q4H PRN PRN Reason: SHORT OF BREATH/WHEEZING Albuterol/Ipratropium (Duoneb -) 1 amp NEB RQID [facility] Last Admin: 07/30/18 11:25 Dose: 1 amp Apixaban (Eliquis -) 2.5 mg PO BID [facility] Last Admin: 07/30/18 10:21 Dose: 2.5 mg Atorvastatin Calcium (Lipitor -) 10 mg PO HS [facility] Last Admin: 07/29/18 22:46 Dose: 10 mg Budesonide/Formoterol Fumarate (Symbicort 80/4.5mcg -) 2 puff IH BID [facility] Last Admin: 07/30/18 10:21 Dose: 2 puff Clotrimazole (Lotrimin 1% Cream -) 1 applic TP BID [facility] Last Admin: 07/30/18 10:22 Dose: 1 applic Diltiazem HCl (Cardizem Cd -) 120 mg PO DAILY [facility] Last Admin: 07/30/18 10:21 Dose: 120 mg Hydralazine HCl (Apresoline -) 50 mg PO TID [facility] Last Admin: 07/30/18 10:20 Dose: Not Given Insulin Aspart (Novolog Vial Sliding Scale -) 1 vial SQ TIDAC [facility]; Protocol Last Admin: 07/30/18 12:00 Dose: 6 units Levothyroxine Sodium (Synthroid -) 75 mcg PO DAILY@0700 [facility] Last Admin: 07/30/18 07:03 Dose: 75 mcg Multivitamins/Minerals/Vitamin C (Tab-A-Vit -) 1 tab PO DAILY [facility] Last Admin: 07/30/18 10:21 Dose: 1 tab Pantoprazole Sodium (Protonix -) 40 mg PO DAILY [facility] Last Admin: 07/30/18 10:21 Dose: 40 mg Potassium Chloride (Potassium Chloride Oral Liquid) 80 meq PO DAILY [facility] Last Admin: 07/30/18 10:22 Dose: 80 meq Prednisone (Deltasone -) 20 mg PO DAILY [facility] Last Admin: 07/30/18 10:21 Dose: 20 mg Torsemide (Demadex -) 80 mg PO DAILY [facility] Last Admin: 07/30/18 10:22 Dose: 80 mg Gen: NAD at rest Heart: RRR Lung: distant breath sounds Abd: soft, nontender Ext: no edema Laboratory Results - last 24 hr 07/29/18 07/30/18 07/30/18 17:19 02:07 07:01 WBC RBC Hgb Hct MCV MCH MCHC RDW Plt Count MPV Absolute Neuts (auto) Neutrophils % Neutrophils % (Manual) Band Neutrophils % Lymphocytes % Lymphocytes % (Manual) Monocytes % Monocytes % (Manual) Eosinophils % Eosinophils % (Manual) Basophils % Basophils % (Manual) Myelocytes % (Man) Promyelocytes % (Man) Blast Cells % (Manual) Nucleated RBC % Metamyelocytes Hypochromia Platelet Estimate Polychromasia Poikilocytosis Anisocytosis Microcytosis Macrocytosis Stomatocytes Schistocytes POC Glucometer 167 102 Stool Occult Blood Positive 07/30/18 07/30/18 07:20 11:59 WBC 18.3 H RBC 3.74 L Hgb 9.9 L Hct 31.2 L MCV 83.3 MCH 26.6 MCHC 31.9 L RDW 24.5 H Plt Count 194 MPV 7.4 L Absolute Neuts (auto) 16.8 H Neutrophils % 91.6 H Neutrophils % (Manual) 94.9 H Band Neutrophils % 0.0 Lymphocytes % 2.0 L Lymphocytes % (Manual) 1.0 L Monocytes % 5.7 Monocytes % (Manual) 1 L D Eosinophils % 0.5 Eosinophils % (Manual) 3.1 D Basophils % 0.2 Basophils % (Manual) 0.0 Myelocytes % (Man) 0 Promyelocytes % (Man) 0 Blast Cells % (Manual) 0 Nucleated RBC % 0 Metamyelocytes 0 Hypochromia 0 Platelet Estimate Normal Polychromasia 1+ Poikilocytosis 2+ Anisocytosis 2+ Microcytosis 2+ Macrocytosis 0 Stomatocytes 1+ Schistocytes 1+ POC Glucometer 271 Stool Occult Blood A/P Acute on Chronic Hypoxic Respiratory Failure improving Pneumonia Acute Kidney Injury resolving Acute COPD Exacerbation Acute on Chronic Diastolic Heart Failure Pulmonary HTN Atrial Flutter with RVR HTN Hyperlipidemia Hypothyroidism - completed antibiotics - prednisone taper - inhaled bronchodilators standing and PRN - lasix as needed - taper FiO2 to keep SpO2>90% - rate control - anticoagulation - monitor urine output, creatinine - D/C planning to SNF Dr Dyer
--- NOTE | 2018-07-30 16:44 | PN ---
Progress Note (short form) - Note Progress Note: Renal follow up for ANNALISA Pt seen and examined at the bedside no acute complaints denies any acute sob Vital Signs Temperature 97.8 F 07/30/18 15:52 Pulse Rate 97 H 07/30/18 15:52 Respiratory Rate 22 H 07/30/18 15:52 Blood Pressure 106/63 07/30/18 15:52 O2 Sat by Pulse Oximetry (%) 98 07/30/18 09:00 Intake & Output 07/27/18 07/28/18 07/29/18 07/30/18 23:59 23:59 23:59 23:59 Intake Total 1650 600 800 940 Output Total 400 Balance 1650 600 800 540 Weight 70.67 kg 68.855 kg 69.49 kg NAD on BIPAP RRR Dec BS, No LE edema CBC, BMP 07/30/18 07:20 07/29/18 07:00 Current Medications Acetaminophen (Tylenol -) 650 mg PO Q6H PRN PRN Reason: PAIN LEVEL 1-5 Last Admin: 07/29/18 22:47 Dose: 650 mg Albuterol Sulfate (Ventolin 0.083% Nebulizer Soln -) 1 amp NEB Q4H PRN PRN Reason: SHORT OF BREATH/WHEEZING Albuterol/Ipratropium (Duoneb -) 1 amp NEB RQID [facility] Last Admin: 07/30/18 16:10 Dose: 1 amp Apixaban (Eliquis -) 2.5 mg PO BID [facility] Last Admin: 07/30/18 10:21 Dose: 2.5 mg Atorvastatin Calcium (Lipitor -) 10 mg PO HS [facility] Last Admin: 07/29/18 22:46 Dose: 10 mg Budesonide/Formoterol Fumarate (Symbicort 80/4.5mcg -) 2 puff IH BID [facility] Last Admin: 07/30/18 10:21 Dose: 2 puff Clotrimazole (Lotrimin 1% Cream -) 1 applic TP BID [facility] Last Admin: 07/30/18 10:22 Dose: 1 applic Diltiazem HCl (Cardizem Cd -) 120 mg PO DAILY [facility] Last Admin: 07/30/18 10:21 Dose: 120 mg Hydralazine HCl (Apresoline -) 50 mg PO TID [facility] Last Admin: 07/30/18 14:00 Dose: Not Given Insulin Aspart (Novolog Vial Sliding Scale -) 1 vial SQ TIDAC [facility]; Protocol Last Admin: 07/30/18 12:00 Dose: 6 units Levothyroxine Sodium (Synthroid -) 75 mcg PO DAILY@0700 [facility] Last Admin: 07/30/18 07:03 Dose: 75 mcg Multivitamins/Minerals/Vitamin C (Tab-A-Vit -) 1 tab PO DAILY [facility] Last Admin: 07/30/18 10:21 Dose: 1 tab Pantoprazole Sodium (Protonix -) 40 mg PO DAILY [facility] Last Admin: 07/30/18 10:21 Dose: 40 mg Potassium Chloride (Potassium Chloride Oral Liquid) 80 meq PO DAILY [facility] Last Admin: 07/30/18 10:22 Dose: 80 meq Prednisone (Deltasone -) 20 mg PO DAILY [facility] Last Admin: 07/30/18 10:21 Dose: 20 mg Torsemide (Demadex -) 80 mg PO DAILY [facility] Last Admin: 07/30/18 10:22 Dose: 80 mg 82 year old AA gentleman with history of CKD, Hyperlipidemia, CHF, COPD, Afib, Hypothyroidism who presented with SOB and Fever and found to have PNA + CHF and developed ANNALISA. #ANNALISA on CKD #CKD #PNA #CHF improving #COPD/Reactive airway disease #Anemia #Gallstones/Gallbladder wall thickening #Rectal bleeding Renal function stable, respiratory status improved Continue Torsemide 80mg Daily and KCL supplantation Trend renal function once weekly as outpatient and titrate diuretics as needed d/c planning as per primary Pravin Veras DO
--- NOTE | 2018-07-30 21:14 | DS ---
DATE OF ADMISSION: 06/24/2018 DATE OF DISCHARGE: DATE OF DICTATION: 07/30/2018 This patient, an 82-year-old gentleman, was admitted from [facility] secondary to fever, shortness of breath, as well as hypoxia. Patient's past medical history was significant for COPD, CHF, atrial fibrillation, CKD, hypertension, hyperlipidemia, as well as hypothyroidism. Initial chest x-ray was significant for right pulmonary infiltrate versus effusion with pulmonary edema and cardiomegaly. Patient treated with antibiotics, steroids, nebulizer treatment, as well as BiPAP as patient was severely hypoxic. Initially admitted to ICU. Patient recovered slowly. Patient eventually stabilized, sent to the floor. Patient followed by Pulmonary as well as Cardiology and ID. Patient's hospital course complicated by GI bleed for which GI consultation was taken. Initially, anticoagulation was held, and decision was made to treat conservatively, and if rectal bleeding persists or patient develops pain, then endoscopy will be considered. Patient did not have any followup bleeding. Hemoglobin and hematocrit were stable, and patient's breathing status also improved. Patient is now stable to go back to [facility]. Medications reconciled. DISCHARGE DIAGNOSES: 1. [id number] respiratory failure. 2. Pneumonia. 3. Acute renal insufficiency. 4. Pulmonary hypertension. 5. Atrial flutter with rapid ventricular rate. 6. Hypertension. 7. Hyperlipidemia. 8. Hypothyroidism. 9. Gastrointestinal bleed. Patient's prednisone to be tapered slowly in the [facility]. Continue anticoagulation with caution. Monitor blood pressure and adjust medications as needed in the [facility]. Patient is also DNR and DNI. I also discussed in detail with the nursing staff. TIME SPENT IN EXAMINATION, DOCUMENTING WELL COORDINATING CARE: Thirty-five minutes. Edwin [id number]
[2018-07-30] MEDS: ATORVASTATIN CA 10 MG TABLET (FP) PO SCH (22:06)
[2018-07-30] MEDS: ACETAMINOPHEN 325 MG TABLET (FP) PO PRN (22:07)
[2018-07-31] MEDS: hydrALAZINE HCL 50 MG TABLET (FP) PO SCH ×2 (06:02→14:32)
[2018-07-31] MEDS: INSULIN SLIDING SCALE (NOVOLOG) 1 VIAL SQ SCH ×2 (07:02→12:05)
[2018-07-31] MEDS: LEVOTHYROXINE NA 75 MCG TABLET (FP) PO SCH (07:02)
[2018-07-31] MEDS: POTASSIUM CHLORIDE ORAL LIQUID 20 MEQ/15 ML PO SCH ×2 (07:07→12:56)
[2018-07-31] MEDS: ALBUTEROL SO4 2.5/IPRATROPIUM 0.5 INH SOL 3 ML VIAL.NEB. NEB SCH ×3 (08:34→15:43)
[2018-07-31] MEDS ORDERED: PT OWN MED DRAWER 7, Y5N ONE ×2 (10:41→17:13)
[2018-07-31] MEDS: PANTOPRAZOLE 40 MG TABLET (FP) PO SCH (11:00)
[2018-07-31] MEDS: CLOTRIMAZOLE 1% CREAM 15 GM TUBE TP SCH (11:01)
[2018-07-31] MEDS: predniSONE 20 MG TABLET (UD) PO SCH (11:01)
[2018-07-31] MEDS: MULTIVITAMINS (DAILY MVI) TABLET (FP) PO SCH (11:01)
[2018-07-31] MEDS: APIXABAN 2.5 MG TABLET PO SCH (11:01)
[2018-07-31] MEDS: TORSEMIDE 20 MG TABLET (FP) PO SCH (11:02)
--- NOTE | 2018-07-31 12:30 | PN ---
Progress Note (short form) - Note Progress Note: Progress Note (short form) - Note Progress Note: uses BIPAP with relief on 4 liters [place] states he is fine Vital Signs - 24 hr 07/30/18 07/30/18 07/30/18 15:52 18:00 21:00 Temperature 97.8 F 98.1 F Pulse Rate 97 H 93 H Respiratory 22 H 20 Rate Blood Pressure 106/63 132/78 O2 Sat by Pulse 100 Oximetry (%) 07/30/18 07/31/18 07/31/18 23:00 02:00 06:00 Temperature 98.5 F 97.6 F 98.2 F Pulse Rate 95 H 90 92 H Respiratory 20 20 20 Rate Blood Pressure 135/79 122/68 136/70 O2 Sat by Pulse Oximetry (%) 07/31/18 07/31/18 08:34 10:00 Temperature 98.3 F Pulse Rate 94 H Respiratory 22 H Rate Blood Pressure 131/72 O2 Sat by Pulse 93 L Oximetry (%) Current Medications Generic Name Dose Route Start Last Admin Trade Name Freq PRN Reason Stop Dose Admin Acetaminophen 650 mg 07/14/18 16:32 07/30/18 22:07 Tylenol - PO 650 mg Q6H PRN Administration PAIN LEVEL 1-5 Albuterol Sulfate 1 amp 07/24/18 17:17 Ventolin 0.083% Nebulizer Soln - NEB Q4H PRN SHORT OF BREATH/WHEEZING Albuterol/Ipratropium 1 amp 07/24/18 20:00 07/31/18 12:10 Duoneb - NEB 1 amp RQID [facility] Administration Apixaban 2.5 mg 07/27/18 22:00 07/31/18 11:01 Eliquis - PO 2.5 mg BID [facility] Administration Atorvastatin Calcium 10 mg 07/14/18 22:00 07/30/18 22:06 Lipitor - PO 10 mg HS [facility] Administration Budesonide/Formoterol Fumarate 2 puff 07/14/18 22:00 07/30/18 22:08 Symbicort 80/4.5mcg - IH 2 puff BID [facility] Administration Clotrimazole 1 applic 07/16/18 12:15 07/31/18 11:01 Lotrimin 1% Cream - TP 1 applic BID [facility] Administration Diltiazem HCl 120 mg 07/12/18 10:00 07/31/18 11:01 Cardizem Cd - PO 120 mg DAILY [facility] Administration Hydralazine HCl 50 mg 07/14/18 22:00 07/31/18 06:02 Apresoline - PO 50 mg TID [facility] Administration Insulin Aspart 1 vial 07/26/18 18:15 07/31/18 12:05 Novolog Vial Sliding Scale - SQ 4 units TIDAC [facility] Administration Protocol Levothyroxine Sodium 75 mcg 07/15/18 07:00 07/31/18 07:02 Synthroid - PO 75 mcg DAILY@0700 [facility] Administration Multivitamins/Minerals/Vitamin C 1 tab 07/15/18 10:00 07/31/18 11:01 Tab-A-Vit - PO 1 tab DAILY [facility] Administration Pantoprazole Sodium 40 mg 07/15/18 10:00 07/31/18 11:00 Protonix - PO 40 mg DAILY [facility] Administration Potassium Chloride 40 meq 07/31/18 22:00 Potassium Chloride Oral Liquid PO BID [facility] Prednisone 20 mg 07/24/18 10:00 07/31/18 11:01 Deltasone - PO 20 mg DAILY [facility] Administration Torsemide 80 mg 07/26/18 10:00 07/31/18 11:02 Demadex - PO 80 mg DAILY [facility] Administration Laboratory Results - last 24 hr 07/30/18 07/31/18 07/31/18 18:01 07:01 11:09 POC Glucometer 233 115 217 Physical Examination Constitutional: Yes: alert and awake Eyes: Yes: Conjunctiva Clear Neck: Yes: Supple, Other (no jvd) Cardiovascular: Yes: Pulse Irregular Respiratory: Yes: decreased breath sounds B/l Gastrointestinal: Yes: Soft/ non tender . bowel sound present, no edema Neurological: Yes: Alert Psychiatric: Yes: Alert Assessment/Plan BIPAP as needed during the day and scheduled for PM Continue present care Abx completed monitor nebulizer treatment spoke with pt and explained to him about medical condition and that he is now completely dependent on O2 stable to dc to [facility] Problem List - Problems (1) Respiratory failure with hypoxia Code(s): J96.91 - RESPIRATORY FAILURE, UNSPECIFIED WITH HYPOXIA (2) Chronic diastolic CHF (congestive heart failure) Code(s): I50.32 - CHRONIC DIASTOLIC (CONGESTIVE) HEART FAILURE (3) HTN (hypertension) Code(s): I10 - ESSENTIAL (PRIMARY) HYPERTENSION Qualifiers: Hypertension type: essential hypertension Qualified Code(s): I10 - Essential (primary) hypertension (4) Hypothyroidism Code(s): E03.9 - HYPOTHYROIDISM, UNSPECIFIED Qualifiers: Hypothyroidism type: unspecified Qualified Code(s): E03.9 - Hypothyroidism , unspecified (5) Paroxysmal A-fib Code(s): I48.0 - PAROXYSMAL ATRIAL FIBRILLATION
[2018-07-31] MEDS: BUDESONIDE/FORMETEROL FUMARATE 80/4.5 mcg INHALER IH SCH (12:55)
--- NOTE | 2018-07-31 12:55 | PN ---
Progress Note, Physician History of Present Illness: pulmonary alert,no distress,-cp,-sob - Current Medication List Current Medications: Active Medications Acetaminophen (Tylenol -) 650 mg PO Q6H PRN PRN Reason: PAIN LEVEL 1-5 Last Admin: 07/30/18 22:07 Dose: 650 mg Albuterol Sulfate (Ventolin 0.083% Nebulizer Soln -) 1 amp NEB Q4H PRN PRN Reason: SHORT OF BREATH/WHEEZING Albuterol/Ipratropium (Duoneb -) 1 amp NEB RQID [facility] Last Admin: 07/31/18 12:10 Dose: 1 amp Apixaban (Eliquis -) 2.5 mg PO BID [facility] Last Admin: 07/31/18 11:01 Dose: 2.5 mg Atorvastatin Calcium (Lipitor -) 10 mg PO HS [facility] Last Admin: 07/30/18 22:06 Dose: 10 mg Budesonide/Formoterol Fumarate (Symbicort 80/4.5mcg -) 2 puff IH BID [facility] Last Admin: 07/30/18 22:08 Dose: 2 puff Clotrimazole (Lotrimin 1% Cream -) 1 applic TP BID [facility] Last Admin: 07/31/18 11:01 Dose: 1 applic Diltiazem HCl (Cardizem Cd -) 120 mg PO DAILY [facility] Last Admin: 07/31/18 11:01 Dose: 120 mg Hydralazine HCl (Apresoline -) 50 mg PO TID [facility] Last Admin: 07/31/18 06:02 Dose: 50 mg Insulin Aspart (Novolog Vial Sliding Scale -) 1 vial SQ TIDAC [facility]; Protocol Last Admin: 07/31/18 12:05 Dose: 4 units Levothyroxine Sodium (Synthroid -) 75 mcg PO DAILY@0700 [facility] Last Admin: 07/31/18 07:02 Dose: 75 mcg Multivitamins/Minerals/Vitamin C (Tab-A-Vit -) 1 tab PO DAILY [facility] Last Admin: 07/31/18 11:01 Dose: 1 tab Pantoprazole Sodium (Protonix -) 40 mg PO DAILY [facility] Last Admin: 07/31/18 11:00 Dose: 40 mg Potassium Chloride (Potassium Chloride Oral Liquid) 40 meq PO BID [facility] Prednisone (Deltasone -) 20 mg PO DAILY [facility] Last Admin: 07/31/18 11:01 Dose: 20 mg Torsemide (Demadex -) 80 mg PO DAILY [facility] Last Admin: 07/31/18 11:02 Dose: 80 mg - Objective Vital Signs: Vital Signs Temperature 98.3 F 07/31/18 10:00 Pulse Rate 94 H 07/31/18 10:00 Respiratory Rate 22 H 07/31/18 10:00 Blood Pressure 131/72 07/31/18 10:00 O2 Sat by Pulse Oximetry (%) 93 L 07/31/18 08:34 Constitutional: Yes: Well Nourished, Calm Eyes: Yes: WNL HENT: Yes: WNL Neck: Yes: WNL Cardiovascular: Yes: Regular Rate and Rhythm, S1, S2 Respiratory: Yes: Diminished Gastrointestinal: Yes: Normal Bowel Sounds, Soft Extremities: Yes: WNL Edema: No Problem List - Problems (1) CKD (chronic kidney disease) Code(s): N18.9 - CHRONIC KIDNEY DISEASE, UNSPECIFIED Qualifiers: Qualified Code(s): N18.9 - Chronic kidney disease, unspecified (2) COPD exacerbation Code(s): J44.1 - CHRONIC OBSTRUCTIVE PULMONARY DISEASE W (ACUTE) EXACERBATION (3) Chronic diastolic CHF (congestive heart failure) Code(s): I50.32 - CHRONIC DIASTOLIC (CONGESTIVE) HEART FAILURE (4) HTN (hypertension) Code(s): I10 - ESSENTIAL (PRIMARY) HYPERTENSION Qualifiers: Qualified Code(s): I10 - Essential (primary) hypertension (5) Paroxysmal A-fib Code(s): I48.0 - PAROXYSMAL ATRIAL FIBRILLATION (6) Pneumonia Code(s): J18.9 - PNEUMONIA, UNSPECIFIED ORGANISM (7) Pulmonary HTN Code(s): I27.20 - PULMONARY HYPERTENSION, UNSPECIFIED (8) Respiratory failure with hypoxia Code(s): J96.91 - RESPIRATORY FAILURE, UNSPECIFIED WITH HYPOXIA Assessment/Plan ASSESSMENT AND PLAN: Acute on Chronic Hypoxic Respiratory Failure improved Pneumonia improved CHF Acute Kidney Injury Acute COPD Exacerbation Acute on Chronic Diastolic Heart Failure Pulmonary HTN Atrial Flutter with RVR HTN Hyperlipidemia Hypothyroidism - inhaled bronchodilators standing and PRN - anticoagulation - monitor urine output, creatinine - prednisone - diuretics DR MENDOZA
[2018-07-31 15:26] VITALS: BP 111/60; PULSE 92; TEMP 97.9
--- NOTE | 2018-07-31 16:11 | PN ---
Progress Note (short form) - Note Progress Note: Renal follow up for ANNALISA Pt seen and examined at the bedside no acute complaints denies any sob, cp, abd pain, N/V/D Vital Signs Temperature 97.9 F 07/31/18 14:24 Pulse Rate 92 H 07/31/18 14:24 Respiratory Rate 24 H 07/31/18 14:24 Blood Pressure 111/60 07/31/18 14:24 O2 Sat by Pulse Oximetry (%) 93 L 07/31/18 08:34 Intake & Output 07/28/18 07/29/18 07/30/18 07/31/18 23:59 23:59 23:59 23:59 Intake Total 600 800 940 515 Output Total 400 Balance 600 800 540 515 Weight 70.67 kg 68.855 kg 69.49 kg 69.127 kg NAD on BIPAP RRR Dec BS, No LE edema CBC, BMP 07/30/18 07:20 07/29/18 07:00 Current Medications Acetaminophen (Tylenol -) 650 mg PO Q6H PRN PRN Reason: PAIN LEVEL 1-5 Last Admin: 07/30/18 22:07 Dose: 650 mg Albuterol Sulfate (Ventolin 0.083% Nebulizer Soln -) 1 amp NEB Q4H PRN PRN Reason: SHORT OF BREATH/WHEEZING Albuterol/Ipratropium (Duoneb -) 1 amp NEB RQID [facility] Last Admin: 07/31/18 15:43 Dose: 1 amp Apixaban (Eliquis -) 2.5 mg PO BID [facility] Last Admin: 07/31/18 11:01 Dose: 2.5 mg Atorvastatin Calcium (Lipitor -) 10 mg PO HS [facility] Last Admin: 07/30/18 22:06 Dose: 10 mg Budesonide/Formoterol Fumarate (Symbicort 80/4.5mcg -) 2 puff IH BID [facility] Last Admin: 07/31/18 12:55 Dose: 2 puff Clotrimazole (Lotrimin 1% Cream -) 1 applic TP BID [facility] Last Admin: 07/31/18 11:01 Dose: 1 applic Diltiazem HCl (Cardizem Cd -) 120 mg PO DAILY [facility] Last Admin: 07/31/18 11:01 Dose: 120 mg Hydralazine HCl (Apresoline -) 50 mg PO TID [facility] Last Admin: 07/31/18 14:32 Dose: 50 mg Insulin Aspart (Novolog Vial Sliding Scale -) 1 vial SQ TIDAC [facility]; Protocol Last Admin: 07/31/18 12:05 Dose: 4 units Levothyroxine Sodium (Synthroid -) 75 mcg PO DAILY@0700 [facility] Last Admin: 07/31/18 07:02 Dose: 75 mcg Multivitamins/Minerals/Vitamin C (Tab-A-Vit -) 1 tab PO DAILY [facility] Last Admin: 07/31/18 11:01 Dose: 1 tab Pantoprazole Sodium (Protonix -) 40 mg PO DAILY [facility] Last Admin: 07/31/18 11:00 Dose: 40 mg Potassium Chloride (Potassium Chloride Oral Liquid) 40 meq PO BID [facility] Last Admin: 07/31/18 12:56 Dose: 40 meq Prednisone (Deltasone -) 20 mg PO DAILY [facility] Last Admin: 07/31/18 11:01 Dose: 20 mg Torsemide (Demadex -) 80 mg PO DAILY [facility] Last Admin: 07/31/18 11:02 Dose: 80 mg 82 year old AA gentleman with history of CKD, Hyperlipidemia, CHF, COPD, Afib, Hypothyroidism who presented with SOB and Fever and found to have PNA + CHF and developed ANNALISA. #ANNALISA on CKD #CKD #PNA #CHF improving #COPD/Reactive airway disease #Anemia #Gallstones/Gallbladder wall thickening #Rectal bleeding Renal function stable, respiratory status improved Continue Torsemide and KCL 80meq Daily repeat labs in 3-5 days as outpatient trend volume status and renal function as outpatient Pravin Veras DO
[2018-07-31] MEDS ORDERED: POTASSIUM CHLORIDE ORAL LIQUID 20 MEQ/15 ML PO SCH (22:00)
== END 2018-07-31 16:32 | DRG 871 ==
LOC: JER 10:53 → JERBED 13:00 → JICU 18:23 → J5S 07-01 18:58 → J4W 07-07 13:18 → J5S 07-14 14:40
PROVIDERS: ADMIT Internal Medicine; ATTEND Internal Medicine
PROC: 5A09557 Assistance with Respiratory Ventilation, Greater than 96 Consecutive Hours, Continuous Positive Airway Pressure (ICD-10-PCS; principal; 2018-06-25)
DX: A41.89 Other specified sepsis (principal); J18.9 Pneumonia, unspecified organism; J96.21 Acute and chronic respiratory failure with hypoxia; I50.33 Acute on chronic diastolic (congestive) heart failure; I48.92 Unspecified atrial flutter; N17.9 Acute kidney failure, unspecified; J44.1 Chronic obstructive pulmonary disease with (acute) exacerbation; I13.0 Hypertensive heart and chronic kidney disease with heart failure and stage 1 through stage 4 chronic kidney disease, or unspecified chronic kidney disease; K62.5 Hemorrhage of anus and rectum; R65.20 Severe sepsis without septic shock; N18.9 Chronic kidney disease, unspecified; E78.5 Hyperlipidemia, unspecified; E03.9 Hypothyroidism, unspecified; D72.829 Elevated white blood cell count, unspecified; R00.0 Tachycardia, unspecified; I48.0 Paroxysmal atrial fibrillation; K44.9 Diaphragmatic hernia without obstruction or gangrene; K80.80 Other cholelithiasis without obstruction; E87.6 Hypokalemia; K21.9 Gastro-esophageal reflux disease without esophagitis; I45.81 Long QT syndrome; I27.20 Pulmonary hypertension, unspecified; F41.9 Anxiety disorder, unspecified; R07.89 Other chest pain; I44.1 Atrioventricular block, second degree; D63.8 Anemia in other chronic diseases classified elsewhere; Z99.81 Dependence on supplemental oxygen; Z88.0 Allergy status to penicillin
CPT/HCPCS: 36415; 36600; 71045-TC-FY; 71250-TC; 76700-TC; 76775-TC; 80048; 80053; 81003; 82272; 82550; 82570; 82728; 82803; 82962; 83540; 83550; 83605; 83615; 83735; 83880; 84100; 84132; 84156; 84300; 84439; 84443; 84466; 84484; 84540; 84550; 85025; 85027; 85610; 85730; 86850; 86900; 86901; 87040; 87070; 87081; 87086; 87205; 87899; 93005; 93010; 93306-TC; 94640; 94660; 97116-GP; 97162-GP; 99284-25; G0480; J7620